=== PATIENT | female | born 1945 | race Caucasian/White ===

== ENCOUNTER → 2022-11-29 12:53 | Outpatient (BNVA) | payer MEDICARE, OTHER, SELFPAY | PROVIDERS: PCP Internal Medicine; Visit Provider Physician Assistant | DX: M54.40 Lumbago with sciatica, unspecified side (principal) | CPT/HCPCS: 99212 ==

== ENCOUNTER → 2023-01-04 12:52 | Outpatient (BNVA) | payer MEDICARE, OTHER, SELFPAY | PROVIDERS: PCP Internal Medicine; Visit Provider Physician Assistant | DX: M54.40 Lumbago with sciatica, unspecified side (principal) | CPT/HCPCS: 99212 ==

== ENCOUNTER 2024-02-28 09:44 | Outpatient (AMB) | payer MEDICARE, OTHER, SELFPAY ==
--- NOTE | 2024-02-28 09:51 | HO.SPINEOV ---
Intake Visit Reasons: MRI F/u Intake Note: Mrs. Braxton, 78 y/o female, is here today to follow up Re: L/Spine MRI. Fieldwork Coordinator Required: No Assessment & Plan Assessment & Plan (1) Back pain of lumbar region with sciatica: Code(s): M54.40 - Lumbago with sciatica, unspecified side Category: Medical Plan Mrs Braxton is following up in the office today. She is a patient known to us from an L4-5 minimally invasive fusion. She has been dealing with some on and off chronic pain issues, recently had what sounds like a caudal nerve block and was doing well until 3 weeks ago she awoke with severe pain radiating down into her left anterior thigh. It has a burning-type pain with severe dysesthesias along the front of the leg that stops at the knee. She underwent an MRI last week and this shows some narrowing of the foramen at the L2-3 level. I examined her today, she is very uncomfortable, having a hard time stand for more than a few minutes. She has some weakness with hip flexion but I am not sure if it could just be pain related. Her MRI done at [facility] last week shows evidence of solid fusion at L4-5. At L3-4 there is no significant nerve compression that I can see. At L2-3 however there does appear to be foraminal stenosis due to disc bulging. I do not see a michelle disc herniation however. This is the only pertinent finding I can see that would relate to where her pain is coming down the front of her thigh. It sounds like a radiculopathy coming from the dorsal root ganglion which would fit with a foraminal etiology. I think it would be worthwhile giving her an injection in the left L2 foramen see if we can identify this is the cause of the symptoms, and to treat it symptomatically. She sees a pain doctor at [facility]. She can not remember than his name but will get me the contact info and I will send them a copy of my note. Total amount of time spent in this visit was 20 minutes in discussion of symptoms, lumbar MRI imaging results and subsequent plan of care Fredrick Tucker MD,PhD [facility] Coding Level of Care Code Est Pt Level 3 (56062) Diagnoses Back pain of lumbar region with sciatica M54.40
== END 2024-02-28 10:25 | disposition home or self-care (01) ==
PROVIDERS: PCP Internal Medicine; Visit Provider Physician Assistant
DX: M54.40 Lumbago with sciatica, unspecified side (principal)
CPT/HCPCS: 99213

== ENCOUNTER → 2024-02-28 09:44 | Outpatient (BNVA) | payer MEDICARE, OTHER, SELFPAY | PROVIDERS: PCP Internal Medicine; Visit Provider Physician Assistant | DX: M54.40 Lumbago with sciatica, unspecified side (principal) | CPT/HCPCS: 99212 ==

== ENCOUNTER 2024-05-08 09:47 | Outpatient (AMB) | payer MEDICARE, OTHER, SELFPAY ==
--- NOTE | 2024-05-08 10:07 | HO.SPINEOV ---
Intake Visit Reasons: Discuss surgery Intake Note: Mrs. Braxton is here today to Discuss Surgery. Manager Corporate Communications Required: No Allergies No Known Allergies Allergy (Verified 05/08/24 10:07) Assessment & Plan Assessment & Plan (1) Back pain of lumbar region with sciatica: Code(s): M54.40 - Lumbago with sciatica, unspecified side Category: Medical Plan On 05/07/2024 I saw for preoperative visit Starr Braxton to discuss her upcoming surgery. She scheduled to undergo an left L2-3 diskectomy, extraforaminal approach next week. I described the procedure on the hand of a model. All questions were answered. I spent 10 minutes in his consult. Farshad Tucker MD, PhD Spine Fellowship Trained Neurosurgeon Director, [facility] Coding Level of Care Code Est Pt Level 2 (69962) Diagnoses Back pain of lumbar region with sciatica M54.40
== END 2024-05-08 11:03 | disposition home or self-care (01) ==
PROVIDERS: PCP Internal Medicine; Visit Provider Neurological Surgery
DX: M54.40 Lumbago with sciatica, unspecified side (principal)
CPT/HCPCS: 99212

== ENCOUNTER → 2024-05-08 09:47 | Outpatient (BNVA) | payer MEDICARE, OTHER, SELFPAY | PROVIDERS: PCP Internal Medicine; Visit Provider Neurological Surgery | DX: M54.40 Lumbago with sciatica, unspecified side (principal) | CPT/HCPCS: 99212 ==

== ENCOUNTER 2024-05-14 09:40 | Day surgery (SDC) | payer MEDICARE, OTHER, SELFPAY ==
[2024-05-07 13:15] VITALS: BP 130/62; PULSE 92; RESP 20; O2SAT 98; BMI 34.3
--- NOTE | 2024-05-07 13:31 | HO.ANESPROP2 ---
Documented by User: Kassy Olsen NP 05/11/24 14:24 HPI - Anesthesia Eval Consult details Narrative: 79yo F for Left L2-3 Extra Foraminal Far Lateral Mild Lumbar Discectomy with Metrix tubes, 05/14/24 No recent illness No CP/SOB with very minimal activity DM: FBS ~100-110 CVA x 2 in 2021: Eliquis. No residual. Loop recorder in situ PONV: Slightly nausea . Good effect in intraop zofran GERD: controlled with famotadine Multiple spine surgeries previously PMFSH Active Problems Active Problems: All Active Problems Back pain of lumbar region with sciatica (Acute) Past Medical History Medical History Cryptogenic stroke SVT (supraventricular tachycardia) Cardiomyopathy Mixed hyperlipidemia Stenosis of right carotid artery Paroxysmal atrial fibrillation Postoperative nausea Back pain Elevated cholesterol Arthritis GERD (gastroesophageal reflux disease) Depression TIA (transient ischemic attack) CVA (cerebral vascular accident) HTN (hypertension) Diabetes Arthritis Family History Family history of problems with anesthesia: No Surgical History Surgical History History of loop recorder Hx of cervical discectomy History of total replacement of both shoulder joints History of total bilateral knee replacement History of esophagogastroduodenoscopy (EGD) H/O colonoscopy Hx of cholecystectomy Hx of carpal tunnel repair Hx of section History of back surgery History of Problems with Anesthesia: No Social History Social History Are you a primary day care center director to a significant other at home: No Do you presently have visiting nurse or other home services: No Patient Tobacco Use Status: Former Tobacco user Tobacco use type: Cigarette Years Smoked: 3 Meds Allergies Allergy/AdvReac Type Severity Reaction Status Date / Time exenatide [From Byetta] Allergy Nausea Verified 05/14/24 10:26 metformin [From Glucophage] Allergy Nausea Verified 05/14/24 10:26 rosuvastatin [From Crestor] Allergy Nausea Verified 05/14/24 10:26 sertraline [From Zoloft] Allergy Nausea Verified 05/14/24 10:26 simvastatin [From Zocor] Allergy Nausea Verified 05/14/24 10:26 Home Medications ?Medication ?Instructions ?Recorded ?Confirmed ?Last Taken ?Type acetaminophen 500 mg tablet 500 mg PO BID 05/07/24 05/07/24 Unknown History apixaban 5 mg tablet (Eliquis) 5 mg PO BID 05/07/24 05/14/24 05/10/24 History chlorthalidone 25 mg tablet 25 mg PO QAM 05/07/24 05/07/24 Unknown History diltiazem HCl 180 mg 180 mg PO QAM 05/07/24 05/07/24 Unknown History capsule,extended release 24 hr evolocumab 140 mg/mL subcutaneous 140 mg subcut Q2W 05/07/24 05/07/24 Unknown History pen injector (Franklin Nicholas) famotidine 20 mg tablet 20 mg PO BEDTIME 05/07/24 05/07/24 Unknown History gabapentin 300 mg capsule 300 mg PO BEDTIME 05/07/24 05/07/24 Unknown History insulin degludec 100 unit/mL (3 34 unit subcut QAM 05/07/24 05/14/24 05/14/24 History mL) subcutaneous pen (Tresiba 0830 FlexTouch U-100 insulin) latanoprost 0.005 % eye drops 1 drp ophthalmic (eye) BEDTIME 05/07/24 05/07/24 Unknown History lisinopril 40 mg tablet 40 mg PO DAILY 05/07/24 05/07/24 Unknown History mirtazapine 45 mg tablet 45 mg PO QPM 05/07/24 05/07/24 Unknown History ondansetron HCl 4 mg tablet 4 mg PO Q12H PRN Nausea 05/07/24 05/07/24 Unknown History Exam Height,Weight and Vital Signs: Height 5 ft 4 in Weight 90.6 kg Last Vital Signs Pulse 92 05/07/24 13:15 Resp 20 05/07/24 13:15 BP 130/62 05/07/24 13:15 Pulse Ox 98 05/07/24 13:15 O2 Del Method Room Air 05/07/24 13:15 Pertinent Lab Results Pertinent Lab Results: CBC and CMP 10/2023 from outside facility [place] Narrative Narrative: EKG 10/2023 NSR @ 77 Carotid 09/2023 RIGHT: Significant arthersclerotic plaque in R carotid system; TEREZA is occluded; Subclavian with nml doppler flow; Verterbral artery has nml doppler flow patterns with antegrade flow LEFT: Moderate atherosclerotic plaque in L carotid system: 50-69% stenosis in LICA; subclavian with nml dopper flow; Vetebral artery has nml doppler flow patterns with antegrade flow ECHO 2021 Nml LV size and sys function; Mild conc LVH; Nml RWM; LVEF 60-65%; LV diastolic function is indeterminate RV nml in size wit nml sys function Nml size of LA and RA No signif valve abnormalities Airway Mallampati Class: I TM Dist: >3cm Neck ROM: Full (s/p cervical disc surgery last ) Partial: Upper Loose/Missing/Broken Teeth: No Heart: RRR Lungs: CTAB Assessment and Plan Assessment Anesthesia Assessment: Anesthesia Plan Discussed and PAT Visit Final Anesthetic Review Family History of Problems with Anesthesia: No History of Problems with Anesthesia: No Documented by User: Tiffany Howard MD 05/14/24 14:04 HPI - Anesthesia Eval Consult details Narrative: 79yo F for Left L2-3 Extra Foraminal Far Lateral Mild Lumbar Discectomy with Metrix tubes, 05/14/24 No recent illness No CP/SOB with very minimal activity DM: FBS ~100-110 CVA x 2 in 2021: Eliquis. No residual. Loop recorder in situ PONV: Slightly nausea . Good effect in intraop zofran GERD: controlled with famotadine Multiple spine surgeries previously PMFSH Active Problems Active Problems: All Active Problems Back pain of lumbar region with sciatica (Acute) Fragile skin. Bruises all over UE Weakness, stiffness UE secondary to shoulder surgery Past Medical History Medical History Cryptogenic stroke SVT (supraventricular tachycardia) Cardiomyopathy Mixed hyperlipidemia Stenosis of right carotid artery Paroxysmal atrial fibrillation Postoperative nausea Back pain Elevated cholesterol Arthritis GERD (gastroesophageal reflux disease) Depression TIA (transient ischemic attack) CVA (cerebral vascular accident) HTN (hypertension) Diabetes Arthritis Family History Family history of problems with anesthesia: No Surgical History Surgical History History of loop recorder Hx of cervical discectomy History of total replacement of both shoulder joints History of total bilateral knee replacement History of esophagogastroduodenoscopy (EGD) H/O colonoscopy Hx of cholecystectomy Hx of carpal tunnel repair Hx of section History of back surgery History of Problems with Anesthesia: Yes (PONV) Social History Social History Are you a primary day care center director to a significant other at home: No Do you presently have visiting nurse or other home services: No Patient Tobacco Use Status: Former Tobacco user Tobacco use type: Cigarette Years Smoked: 3 Meds Allergies Allergy/AdvReac Type Severity Reaction Status Date / Time exenatide [From Byetta] Allergy Nausea Verified 05/14/24 10:26 metformin [From Glucophage] Allergy Nausea Verified 05/14/24 10:26 rosuvastatin [From Crestor] Allergy Nausea Verified 05/14/24 10:26 sertraline [From Zoloft] Allergy Nausea Verified 05/14/24 10:26 simvastatin [From Zocor] Allergy Nausea Verified 05/14/24 10:26 Home Medications ?Medication ?Instructions ?Recorded ?Confirmed ?Last Taken ?Type acetaminophen 500 mg tablet 500 mg PO BID 05/07/24 05/07/24 Unknown History apixaban 5 mg tablet (Eliquis) 5 mg PO BID 05/07/24 05/14/24 05/10/24 History chlorthalidone 25 mg tablet 25 mg PO QAM 05/07/24 05/07/24 Unknown History diltiazem HCl 180 mg 180 mg PO QAM 05/07/24 05/07/24 Unknown History capsule,extended release 24 hr evolocumab 140 mg/mL subcutaneous 140 mg subcut Q2W 05/07/24 05/07/24 Unknown History pen injector (Franklin Nicholas) famotidine 20 mg tablet 20 mg PO BEDTIME 05/07/24 05/07/24 Unknown History gabapentin 300 mg capsule 300 mg PO BEDTIME 05/07/24 05/07/24 Unknown History insulin degludec 100 unit/mL (3 34 unit subcut QAM 05/07/24 05/14/24 05/14/24 History mL) subcutaneous pen (Tresiba 0830 FlexTouch U-100 insulin) latanoprost 0.005 % eye drops 1 drp ophthalmic (eye) BEDTIME 05/07/24 05/07/24 Unknown History lisinopril 40 mg tablet 40 mg PO DAILY 05/07/24 05/07/24 Unknown History mirtazapine 45 mg tablet 45 mg PO QPM 05/07/24 05/07/24 Unknown History ondansetron HCl 4 mg tablet 4 mg PO Q12H PRN Nausea 05/07/24 05/07/24 Unknown History Exam Height,Weight and Vital Signs: Height 5 ft 4 in Weight 90.6 kg Last Vital Signs Pulse 92 05/07/24 13:15 Resp 20 05/07/24 13:15 BP 130/62 05/07/24 13:15 Pulse Ox 98 05/07/24 13:15 O2 Del Method Room Air 05/07/24 13:15 Vital Signs Pulse Resp BP Pulse Ox O2 Del Method 91 16 146/70 96 Room Air 05/14/24 10:55 05/14/24 10:55 05/14/24 10:55 05/14/24 10:55 05/14/24 10:55 Temp: 97.3 Airway Mallampati Class: II TM Dist: >3cm Partial: Upper Loose/Missing/Broken Teeth: Yes (Upper partial. Denies broken or loose teeth) Assessment and Plan Assessment Anesthesia Assessment: Anesthesia Plan Discussed and Chart Reviewed Final Anesthetic Review Family History of Problems with Anesthesia: No History of Problems with Anesthesia: Yes (PONV) NPO: Yes ASA Class: III Final Preanesthetic Review: No Changes in Pt Med Stat, Meds/Allgs Chart Reviewed, Consent Obtained/Reviewed and Anes Risks/Benef Reviewed Patient Risk: Intermediate Procedure Risk: Intermediate Assessment/Block/Sedation in SS: Assess/Block/Sedation-SS Anesthetic Plan Anesthetic Plan: GA Disposition: Standard PACU
[2024-05-14] VITALS (11 sets, daily range): BP systolic 110–187; BP diastolic 60–81; PULSE 71–102; RESP 14–21; TEMP 36.3–36.4; O2SAT 96–99
--- OUTSIDE RECORDS SUMMARY | 2024-05-14 09:43 | XMS_ITS | Continuity of Care Document ---
Author Organization [facility] y Address [address] [place] [address] [address], [address] [place] [address]- Care Team Providers Care Brim Molder Name Role Phone Sona ALVARES, Cm Savage Primary Care Physician [place] [facility] [place]23 [facility] [address] [place] [address] Drive [address] [place], [place] [address] Allergies, Adverse Reactions, Alerts Substance Reaction Severity Status Zocor aching Active Zoloft Mild Active Glucophage nauseous Active Crestor aches and pain Active Byetta Prefilled Pen nauseous and sick Method of giving glucose Active Trulicity Active Medications acetaminophen 325 mg oral tablet 650 mg, By Mouth, Every 6 hours, Refills 0, Maintenance, 06/18/18 8:39:52 EDT Start Date: 06/18/18 Status: Ordered apixaban 5 mg oral tablet 1 tablet = 5 mg, By Mouth, 2 times a day, # 60 tablet, 0 Refills, Maintenance, 07/10/22 12:24:00 EST, Tablet, [facility], Partial fill upon patient request if the prescription is for a schedule II opioid drug., 163, cm, 07/10/22 11:42:00... Start Date: 07/10/22 Stop Date: 08/09/22 Status: Ordered aspirin 81 mg oral delayed release tablet 81 mg, By Mouth, Daily, # 30 tablet, Refills 3, Tot. Refills 3, Maintenance, 10/03/21 8:10:00 EST, Route to Pharmacy Electronically, [facility], Partial fill upon patient request if theprescription is for a schedule II opioid drug., 162... Start Date: 10/03/21 Stop Date: 01/31/22 Status: Ordered atorvastatin 80 mg oral tablet 1 tablet = 80 mg, By Mouth, Daily, # 30 tablet, 0 Refills, Maintenance, 07/10/22 12:35:00 EST, Tablet, [facility], Partial fill upon patient request if the prescription is for a schedule II opioid drug., 163, cm, 07/10/22 11:42:00 EST, H... Start Date: 07/10/22 Status: Ordered Diltiazem 0 Refills, Maintenance, 10/08/23 9:47:00 EST, Partial fill upon patient request if the prescriptionis for a schedule II opioid drug. Start Date: 10/08/23 Status: Ordered famotidine 10 mg oral tablet 1 tablet = 10 mg, By Mouth, 2 times a day, # 28 tablet, 0 Refills, Maintenance, 07/08/22 20:37:00 EST, Tablet, Partial fill upon patient request if the prescription is for a schedule II opioid drug. Start Date: 07/08/22 Status: Ordered Gabapentin By Mouth, 0 Refills, Maintenance, 10/08/23 9:47:00 EST, Partial fill upon patient request if the prescription is for a schedule II opioid drug. Start Date: 10/08/23 Status: Ordered lisinopril 40 mg oral tablet 1 tablet = 40 mg, By Mouth, Daily, # 30 tablet, 0 Refills, Maintenance, 02/12/22 20:22:00 EDT, Tablet, Partial fill upon patient request if the prescription is for a schedule II opioid drug. Start Date: 02/12/22 Status: Ordered Mirtazapine = 45 mg, By Mouth, Daily at bedtime, 0 Refills, Maintenance, 07/08/22 16:39:00 EST, Partial fill upon patient request if the prescription is for a schedule II opioid drug. Start Date: 07/08/22 Status: Ordered morphine 15 mg oral tablet, immediate release 1 tablet = 15 mg, By Mouth, Daily at bedtime, 0 Refills, Maintenance, 07/08/22 16:35:00 EST, Partial fill upon patient request if the prescription is for a schedule II opioid drug. Start Date: 07/08/22 Status: Ordered Ondansetron = 4 mg, By Mouth, PRN as needed for nausea/vomiting, 0 Refills, Maintenance, 07/08/22 16:33:00 EST,Partial fill upon patient request if the prescription is for a schedule II opioid drug. Start Date: 07/08/22 Status: Ordered PrednisoLONE = 5 mg, By Mouth, Daily, 0 Refills, Maintenance, 07/08/22 16:30:00 EST, Partial fill upon patient request if the prescription is for a schedule II opioid drug. Start Date: 07/08/22 Status: Ordered Tresiba FlexTouch 100 units/mL subcutaneous solution = 36 units, Subcutaneous Infusion, Daily, 0 Refills, Maintenance, 02/25/22 16:05:00 EDT, Partial fill upon patient request if the prescription is for a schedule II opioid drug. 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 History of CVA (cerebrovascular accident) Confirmed Active Hypertension Confirmed Active Severe obesity (BMI 35.0-39.9) with comorbidity Confirmed Active Type 2 diabetes mellitus Confirmed Active Social History Social History Type Response Smoking Status Never (less than 100 in lifetime) entered on: 01/04/21 Sex Patient Care team information Care Team Personnel Name: Cm Magallanes MD Position: [facility] Physician - Primary Care Member Role: PCP Address: Address: [address] [place] [id number]- Name: Monica Sun RN Position: [facility] RN Member Role: Primary Care Nurse Name: Ginger Jones RN Position: [facility] RN Member Role: Primary Care Nurse Name: Ramsey Herrera RN Position: [facility] RN Member Role: Primary Care Nurse Name: Di Perez RN Position: [facility] RN Member Role: Primary Care Nurse Name: Priti Wagoner RN Position: [facility] RN Member Role: Primary Care Nurse Name: Yaa Alexander NP Position: [facility] PCO Associate Professional Member Role: Primary Care Nurse Address: Address: [address] [place] [address] [facility] [place] [address]- Name: Bhavya Ricardo RN Position: [facility] RN Member Role: Primary Care Nurse Name: Sarah Augustin RN Position: [facility] RN Member Role: Primary Care Nurse Name: Josie Taylor RN Position: [facility] Onco RN Member Role: Primary Care Nurse Name: Rachel Moreno RN Position: [facility] RN Member Role: Primary Care Nurse Name: Sarah Cash LPN Position: [facility] RN Member Role: Primary Care Nurse Name: Izabela Parikh RN Position: [facility] RN Member Role: Primary Care Nurse Name: Gita Borden LPN Position: [facility] RN Member Role: Primary Care Nurse Name: Annie Lehman RN Position: [facility] RN Member Role: Primary Care Nurse Care Team Related Persons Name: МАРИНА HOBBS Address: [address] [address]
--- OUTSIDE RECORDS SUMMARY | 2024-05-14 09:43 | XMS_ITS | Continuity of Care Document ---
Author Organization [facility] y Address [address] [place] [address] [address], [address] [place] [address]- Care Team Providers Care Clinical Safety Specialist Name Role Phone Sona ALVARES, Cm Savage Primary Care Physician Encounter [facility] [place] 10/08/23 - 11/07/23 [facility] [address] [place] [address] Drive, [address] [place], [place] [address] Attending Physician: Kyle Lackey Admitting Physician: AdmKyle garcia Referring Physician: AdmtrKyle Allergies, Adverse Reactions, Alerts Substance Reaction Severity Status Zocor aching Active Byetta Prefilled Pen nauseous and sick Method of giving glucose Active Trulicity Active Zoloft Mild Active Glucophage nauseous Active Crestor aches and pain Active Medications acetaminophen 325 mg oral tablet 650 mg, By Mouth, Every 6 hours, Refills 0, Maintenance, 06/18/18 8:39:52 EDT Start Date: 06/18/18 Status: Ordered apixaban 5 mg oral tablet 1 tablet = 5 mg, By Mouth, 2 times a day, # 60 tablet, 0 Refills, Maintenance, 07/10/22 12:24:00 EST, Tablet, [facility], Partial fill upon patient request if the prescription is for a schedule II opioid drug., 163, cm, 07/10/22 11:42:00... Start Date: 07/10/22 Stop Date: 08/09/22 Status: Ordered aspirin 81 mg oral delayed release tablet 81 mg, By Mouth, Daily, # 30 tablet, Refills 3, Tot. Refills 3, Maintenance, 10/03/21 8:10:00 EST, Route to Pharmacy Electronically, [facility], Partial fill upon patient request if theprescription is for a schedule II opioid drug., 162... Start Date: 10/03/21 Stop Date: 01/31/22 Status: Ordered atorvastatin 80 mg oral tablet 1 tablet = 80 mg, By Mouth, Daily, # 30 tablet, 0 Refills, Maintenance, 07/10/22 12:35:00 EST, Tablet, [facility], Partial fill upon patient [...] Team Personnel Name: Cm Magallanes MD Position: [facility] Physician - Primary Care Member Role: PCP Address: Address: [address] [place] [id number]- Name: Monica Sun RN Position: [facility] RN Member Role: Primary Care Nurse Name: Ginger Jones RN Position: [facility] RN Member Role: Primary Care Nurse Name: Ramsey Herrera RN Position: [facility] RN Member Role: Primary Care Nurse Name: Di Perez RN Position: [facility] RN Member Role: Primary Care Nurse Name: Priti Wagoner RN Position: [facility] RN Member Role: Primary Care Nurse Name: Yaa Alexander NP Position: [facility] PCO Associate Professional Member Role: Primary Care Nurse Address: Address: [address] [place] [address] [facility] [place] [address]- Name: Bhavya Ricardo RN Position: [facility] SN RN Member Role: Primary Care Nurse Name: Sarah Augustin RN Position: [facility] RN Member Role: Primary Care Nurse Name: Josie Taylor RN Position: [facility] Onco RN Member Role: Primary Care Nurse Name: Rachel Moreno RN Position: [facility] RN Member Role: Primary Care Nurse Name: Sarah Cash LPN Position: [facility] RN Member Role: Primary Care Nurse Name: Izabela Parikh RN Position: [facility] RN Member Role: Primary Care Nurse Name: Gita Borden LPN Position: [facility] RN Member Role: Primary Care Nurse Name: Annie Lehman RN Position: [facility] RN Member Role: Primary Care Nurse Care Team Related Persons Name: ALANISTIMOTHY МАРИНА Address: [address] [address]
--- OUTSIDE RECORDS SUMMARY | 2024-05-14 09:43 | XMS_ITS | Continuity of Care Document ---
Author Organization [facility] Address Unknown Care Team Providers Care Certified Detention Deputy Name Role Phone Sona ALVARES, Cm Savage Primary Care Physician ( [phone] [place] [facility] [place]26[place]21 [facility] Attending Physician: Liss Miramontes MD, Shena Referring Physician: Yanira Preciado NP Allergies, Adverse Reactions, Alerts Substance Reaction Severity Status Zocor aching Active Zoloft Mild Active Glucophage nauseous Active Crestor aches and pain Active Byetta Prefilled Pen nauseous and sick Method of giving glucose Active Medications acetaminophen 325 mg oral tablet 650 mg, By Mouth, Every 6 hours, Refills 0, Maintenance, 06/18/18 8:39:52 EDT Start Date: 06/18/18 Status: Ordered amLODIPine 5 mg oral tablet 5 mg, 1, tablet, By Mouth, Daily, # 30 tablet, Refills 0, Tot. Refills 0, Maintenance, 10/03/21 10:11:00 EST, Route to Pharmacy Electronically, [facility], Partial fill upon patient request if the prescription is for a schedule II opioid... Start Date: 10/03/21 Status: Ordered aspirin 81 mg oral delayed release tablet 81 mg, By Mouth, Daily, # 30 tablet, Refills 3, Tot. Refills 3, Maintenance, 10/03/21 8:10:00 EST, Route to Pharmacy Electronically, [facility], Partial fill upon patient request if theprescription is for a schedule II opioid drug., 162... Start Date: 10/03/21 Stop Date: 01/31/22 Status: Ordered atorvastatin 40 mg oral tablet 1 tablet = 40 mg, By Mouth, Daily at bedtime, # 30 tablet, 0 Refills, Maintenance, 10/03/21 8:10:00EST, Tablet, [facility], Partial fill upon patient request if the prescription is fora schedule II opioid drug., 162.6, cm, 08/25/21 6:5... Start Date: 10/03/21 Status: Ordered Gabapentin = 100 mg, By Mouth, 2 times a day, 0 Refills, Maintenance, 12/28/20 15:25:00 EDT, Partial fill uponpatient request if the prescription is for a schedule II opioid drug. Start Date: 12/28/20 Status: Ordered metFORMIN 500 mg oral tablet 1 tablet = 500 mg, By Mouth, 2 times a day, # 60 tablet, 0 Refills, Maintenance, 10/03/21 8:22:00 EST, Tablet, [facility], Partial fill upon patient request if the prescription is for aschedule II opioid drug., 162.6, cm, 08/25/21 6:51:... Start Date: 10/03/21 Status: Ordered Paroxetine = 10 mg, By Mouth, Daily at bedtime, 0 Refills, Maintenance, 12/28/20 15:25:00 EDT, Partial fill upon patient request if the prescription is for a schedule II opioid drug. Start Date: 12/28/20 Status: Ordered Pepcid AC Maximum Strength 20 mg oral tablet 20 mg, 1, tablet, By Mouth, Daily, # 30 tablet, Refills 0, Maintenance, 06/17/18 6:43:14 EDT Start Date: 06/17/18 Status: Ordered Plavix 75 mg oral tablet 75 mg, 1, tablet, By Mouth, Daily, # 30 tablet, Refills 2, Tot. Refills 2, Maintenance, 10/03/21 8:10:00 EST, Route to Pharmacy Electronically, [facility], Partial fill upon patient request if the prescription is for a schedule II opioid... Start Date: 10/03/21 Stop Date: 01/01/22 Status: Ordered Remeron 45 mg oral tablet 1 tablet = 45 mg, By Mouth, Daily at bedtime, 0 Refills, Maintenance, 11/01/16 16:01:17 Start Date: 11/01/16 Status: Ordered Problem List Condition Effective Dates Status Health Status Inform ant Obese class II(Confirmed) Active Social History Social History Type Response Smoking Status Never (less than 100 in lifetime) entered on: 01/04/21 Sex
--- OUTSIDE RECORDS SUMMARY | 2024-05-14 09:43 | XMS_ITS | Continuity of Care Document ---
Author Organization [facility] Address [address] [place] [address] [address], [address] [place] [address]- Care Team Providers Care Continuity Reader Name Role Phone Sona ALVARES, Cm Savage Primary Care Physician ( [phone] Encounter [facility] Date(s): 08/28/22 - 09/27/[address], [address] [place], [place] [address] Attending Physician: Kyle Lackey Admitting Physician: AdmtrKyle Referring Physician: Admtr, ArVincent Allergies, Adverse Reactions, Alerts Substance Reaction Severity [...] 0 Refills, Maintenance, 07/10/22 12:24:00 EST, Tablet, [facility], Partial fill upon patient request if the prescription is for a schedule II opioid drug., 163, cm, 07/10/22 11:42:00... Start Date: 07/10/22 Stop Date: 08/09/22 Status: Ordered aspirin 81 mg oral delayed release tablet 81 mg, By Mouth, Daily, # 30 tablet, Refills 3, Tot. Refills 3, Maintenance, 10/03/21 8:10:00 EST, Route to Pharmacy Electronically, [facility], Partial fill upon patient request if theprescription is for a schedule II opioid drug., 162... Start Date: 10/03/21 Stop Date: 01/31/22 Status: Ordered atorvastatin 80 mg oral tablet 1 tablet = 80 mg, By Mouth, Daily, # 30 tablet, 0 Refills, Maintenance, 07/10/22 12:35:00 EST, Tablet, [facility], Partial fill upon patient request if the prescription is for a schedule II opioid drug., 163, cm, 07/10/22 11:42:00 EST, H... Start Date: 07/10/22 Status: Ordered famotidine 10 mg oral tablet 1 tablet = 10 mg, By Mouth, 2 times a day, # 28 tablet, 0 Refills, Maintenance, 07/08/22 20:37:00 EST, Tablet, Partial fill upon patient request if the prescription is for a schedule II opioid drug. Start Date: 07/08/22 Status: Ordered lisinopril 40 mg oral tablet [...] (cerebrovascular accident) Confirmed Active Hypertension Confirmed Active Obese class II Confirmed Active Type 2 diabetes mellitus Confirmed Active Social History Social History Type Response Smoking Status Never (less than 100 in lifetime) entered on: 01/04/21 Sex Patient Care team information Care Team Personnel Name: Cm Magallanes MD Position: [facility] Physician (General Medicine) Member Role: PCP Address: Address: [address] [place] [address] #[facility] [address] Name: Ainsley Anderson RN Position: [facility] RN Member Role: Primary Care Nurse Name: Monica Sun RN Position: [facility] RN Member Role: Primary Care Nurse Name: Ginger Jones RN Position: [facility] RN Member Role: Primary Care Nurse Name: Ramsey Herrera RN Position: [facility] RN Member Role: Primary Care Nurse Name: Di Perez RN Position: [facility] RN Member Role: Primary Care Nurse Name: Priti Wagoner RN Position: [facility] RN Member Role: Primary Care Nurse Name: Yaa Alexander RN Position: [facility] RN Member Role: Primary Care Nurse Name: Bhavya Ricardo RN Position: [facility] RN Member Role: Primary Care Nurse Name: Sarah Augustin RN Position: [facility] RN Member Role: Primary Care Nurse Name: Josie Taylor RN Position: [facility] RN Member Role: Primary Care Nurse Name: Rachel Moreno RN Position: [facility] RN Member Role: Primary Care Nurse Name: Sarah Cash LPN Position: S RN Member Role: Primary Care Nurse Name: Izabela Parikh RN Position: [facility] RN Member Role: Primary Care Nurse Name: Gita Borden LPN Position: S RN Member Role: Primary Care Nurse Name: Annie Lehman Position: S RN Member Role: Primary Care Nurse Care Team Related Persons Name: МАРИНА HOBBS Address: home [address] [place] [address]
--- OUTSIDE RECORDS SUMMARY | 2024-05-14 09:43 | XMS_ITS | Continuity of Care Document ---
Author Organization [facility] ter Address [address] [place] [address]- Care Team Providers Care Android Platform Developer Name Role Phone Sona ALVARES, Cm Savage Primary Care Physician ( [phone] [place] [facility] [place] 06/05/[address] [address]- Discharge Disposition: A-D/C Home Attending Physician: Rogelio Montenegro MD Admitting Physician: Rogelio Montenegro MD Referring Physician: Rogelio Montenegro MD Allergies, Adverse Reactions, Alerts Substance Reaction Severity Status Zocor aching Active Glucophage nauseous Active Crestor aches and pain Active Byetta Prefilled Pen nauseous and sick Method of giving glucose Active Medications acetaminophen 325 mg oral tablet 650 mg, By Mouth, Every 6 hours, Refills 0, Maintenance, 06/18/18 8:39:52 EDT Start Date: 06/18/18 Status: Ordered Gabapentin = 100 mg, By Mouth, 2 times a day, 0 Refills, Maintenance, 12/28/20 15:25:00 EDT, Partial fill uponpatient request if the prescription is for a schedule II opioid drug. Start Date: 12/28/20 Status: Ordered hydrochlorothiazide 25 mg oral tablet 25 mg, 1, tablet, By Mouth, Daily, Refills 0, Maintenance, 11/01/16 16:00:36 Start Date: 11/01/16 Status: Ordered lisinopril 30 mg oral tablet 1 tablet = 30 mg, By Mouth, Daily, 0 Refills, Maintenance, 11/01/16 15:58:14 Start Date: 11/01/16 Status: Ordered Paroxetine = 10 mg, By [...] 6:43:14 EDT Start Date: 06/17/18 Status: Ordered Remeron 45 mg oral tablet 1 tablet = 45 mg, By Mouth, Daily at bedtime, 0 Refills, Maintenance, 11/01/16 16:01:17 Start Date: 11/01/16 Status: Ordered Tresiba FlexTouch = 30 units, Subcutaneous Infusion, Daily at bedtime, 0 Refills, Maintenance, 06/17/18 6:41:01 EDT Start Date: 06/17/18 Status: Ordered Vital Signs Most recent to oldest [Reference Range]: 1 2 3 Oxygen Saturation [94-100 %] 97 % (06/05/21 9:41 AM) 97 % (06/05/21 9:26 AM) 100 % (06/05/21 8:58 AM) Pulse Rate [55-90 bpm] 92 bpm *H* (06/05/21 8:58 AM) Blood Pressure [90-138/55-84 mm Hg] 159/99mm Hg *H* (06/05/21 9:41 AM) 166/84mm Hg *H* (06/05/21 9:26 AM) 173/82mm Hg *H* (06/05/21 8:58 AM) Respiratory Rate [16-30 br/min] 22 br/min (06/05/21 9:41 AM) 22 br/min (06/05/21 9:26 AM) 20 br/min (06/05/21 8:58 AM) Temperature [96.8-100.4 DegF] 98.4 DegF (06/05/21 8:58 AM) Mode of Delivery (Oxygen) Room air (06/05/21 9:41 AM) Room air (06/05/21 9:26 AM) Room air (06/05/21 8:58 AM) Blood pressure sites Arm, left (06/05/21 9:41 AM) Arm, left (06/05/21 9:26 AM) Arm, left (06/05/21 8:58 AM) Social History Social History Type Response Smoking Status Never (less than 100 in lifetime) entered on: 01/04/21 Sex
--- OUTSIDE RECORDS SUMMARY | 2024-05-14 09:43 | XMS_ITS | Continuity of Care Document ---
Author Organization [facility] Address [address] [place] [address]- Care Team Providers Care Cheese Production Supervisor Name Role Phone Cm Magallanes MD Primary Care Physician [place] [facility] [place] - 01/01/[address] [address] Discharge Disposition: A-D/C Home Attending Physician: Cm Magallanes MD Admitting Physician: Cm Magallanes MD Referring Physician: Ronnie Urban MD, Neymar Allergies, Adverse Reactions, Alerts Substance Reaction Severity [...] 10/03/21 10:11:00 EST, Route to Pharmacy Electronically, [facility], Partial fill upon patient request if the prescription is for a schedule II opioid... Start Date: 10/03/21 Status: Ordered aspirin 81 mg oral delayed release tablet 81 mg, By Mouth, Daily, # 30 tablet, Refills 3, Tot. Refills 3, Maintenance, 10/03/21 8:10:00 EST, Route to Pharmacy Electronically, [facility], Partial fill upon patient request if theprescription is for a schedule II opioid drug., 162... Start Date: 10/03/21 Stop Date: 01/31/22 Status: Ordered atorvastatin 40 mg oral tablet 1 tablet = 40 mg, By Mouth, Daily at bedtime, # 30 tablet, 0 Refills, Maintenance, 10/03/21 8:10:00EST, Tablet, [facility], Partial fill upon patient request if the prescription is fora schedule II opioid drug., 162.6, cm, 08/25/21 6:5... Start Date: 10/03/21 Status: Ordered Gabapentin = 100 mg, By Mouth, 2 times a day, 0 Refills, Maintenance, 12/28/20 15:25:00 EDT, Partial fill uponpatient request if the prescription is for a schedule II opioid drug. Start Date: 12/28/20 Status: Ordered Lexapro 5 mg oral tablet 2 tablet = 10 mg, By Mouth, Daily, 0 Refills, Maintenance, 12/19/21 13:56:00 EDT, Partial fill uponpatient request if the prescription is for a schedule II opioid drug. Start Date: 12/19/21 Status: Ordered metFORMIN 500 mg oral tablet 1 tablet = 500 mg, By Mouth, 2 times a day, # 60 tablet, 0 Refills, Maintenance, 10/03/21 8:22:00 EST, Tablet, [facility], Partial fill upon patient request if [...] 10/03/21 8:10:00 EST, Route to Pharmacy Electronically, [facility], Partial fill upon patient [...]
--- OUTSIDE RECORDS SUMMARY | 2024-05-14 09:43 | XMS_ITS | Continuity of Care Document ---
Author Organization [facility] Address Unknown Care Team Providers Care Fish Hatchery Laborer Name Role Phone Sona ALVARES, Cm Savage Primary Care Physician En[place] [facility] [place] [id number] Date(s): 10/27/21 - 11/26/21 [facility] Attending Physician: Kyle Lackey Admitting Physician: Kyle Lackey Referring Physician: Kyle Lackey Allergies, Adverse Reactions, Alerts Substance Reaction Severity [...] 10/03/21 10:11:00 EST, Route to Pharmacy Electronically, [facility], Partial fill upon patient request if the prescription is for a schedule II opioid... Start Date: 10/03/21 Status: Ordered aspirin 81 mg oral delayed release tablet 81 mg, By Mouth, Daily, # 30 tablet, Refills 3, Tot. Refills 3, Maintenance, 10/03/21 8:10:00 EST, Route to Pharmacy Electronically, [facility], Partial fill upon patient request if theprescription is for a schedule II opioid drug., 162... Start Date: 10/03/21 Stop Date: 01/31/22 Status: Ordered atorvastatin 40 mg oral tablet 1 tablet = 40 mg, By Mouth, Daily at bedtime, # 30 tablet, 0 Refills, Maintenance, 10/03/21 8:10:00EST, Tablet, [facility], Partial fill upon patient request [...] 0 Refills, Maintenance, 10/03/21 8:22:00 EST, Tablet, [facility], Partial fill upon patient request [...] 10/03/21 8:10:00 EST, Route to Pharmacy Electronically, [facility], Partial fill upon patient request [...]
--- OUTSIDE RECORDS SUMMARY | 2024-05-14 09:43 | XMS_ITS | Continuity of Care Document ---
Author Organization [facility] Address [address] [facility], [address], [address] [place] [address]- Care Team Providers Care Fermenter Wine Name Role Phone Sona ALVARES, Cm Savage Primary Care Physician En[place] [facility] [place]s): 07/09/22 - 08/08/22 [facility] [address], [address], [address] [place] [address]- Allergies, Adverse Reactions, Alerts Substance Reaction Severity [...] 0 Refills, Maintenance, 07/10/22 12:24:00 EST, Tablet, [facility], Partial fill upon patient request if the prescription is for a schedule II opioid drug., 163, cm, 07/10/22 11:42:00... Start Date: 07/10/22 Stop Date: 08/09/22 Status: Ordered aspirin 81 mg oral delayed release tablet 81 mg, By Mouth, Daily, # 30 tablet, Refills 3, Tot. Refills 3, Maintenance, 10/03/21 8:10:00 EST, Route to Pharmacy Electronically, [facility], Partial fill upon patient request if theprescription is for a schedule II opioid drug., 162... Start Date: 10/03/21 Stop Date: 01/31/22 Status: Ordered atorvastatin 80 mg oral tablet 1 tablet = 80 mg, By Mouth, Daily, # 30 tablet, 0 Refills, Maintenance, 07/10/22 12:35:00 EST, Tablet, [facility], Partial fill upon patient request if [...] Personnel Name: Cm Magallanes MD Position: [facility] Physician (General Medicine) Member Role: PCP Address: Address: [address] [place] [address] #[facility] [address] Name: Ainsley Anderson RN Position: [facility] RN Member Role: Primary Care Nurse Name: Monica Sun RN Position: [facility] RN Member Role: Primary Care Nurse Name: Ginger Jones RN Position: S RN Member Role: Primary Care Nurse Name: Ramsey Herrera RN Position: [facility] RN Member Role: Primary Care Nurse Name: Di Perez RN Position: [facility] RN Member Role: Primary Care Nurse Name: Priti Wagoner RN Position: S RN Member Role: Primary Care Nurse Name: Yaa Alexander RN Position: [facility] RN Member Role: Primary Care Nurse Name: Bhavya Ricardo RN Position: [facility] RN Member Role: Primary Care Nurse Name: Sarah Augustin RN Position: [facility] RN Member Role: Primary Care Nurse Name: Josie Taylor RN Position: [facility] RN Member Role: Primary Care Nurse Name: Rachel Moreno RN Position: [facility] RN Member Role: Primary Care Nurse Name: Sarah Cash LPN Position: S RN Member Role: Primary Care Nurse Name: Izabela Parikh RN Position: S RN Member Role: Primary Care Nurse Name: Gita Borden LPN Position: S RN Member Role: Primary Care Nurse Name: Annie Lehman Position: S RN Member Role: Primary Care Nurse Care Team Related Persons Name: МАРИНА HOBBS Address: home [address] [place] [address]
--- OUTSIDE RECORDS SUMMARY | 2024-05-14 09:43 | XMS_ITS | Continuity of Care Document ---
Author Organization [facility] Address [address] [place], [place] [address], [address] [place] [address]- Care Team Providers Care Screwmaker Automatic Name Role Phone Sona ALVARES, Cm Savage Primary Care Physician Encounter [facility] [place] Date(s): 10/11/23 - 11/10/23 [facility] [address] [place] [address] Drive, [address] [place] [address]- Allergies, Adverse Reactions, Alerts Substance Reaction Severity [...] 0 Refills, Maintenance, 07/10/22 12:24:00 EST, Tablet, [facility], Partial fill upon patient request if the prescription is for a schedule II opioid drug., 163, cm, 07/10/22 11:42:00... Start Date: 07/10/22 Stop Date: 08/09/22 Status: Ordered aspirin 81 mg oral delayed release tablet 81 mg, By Mouth, Daily, # 30 tablet, Refills 3, Tot. Refills 3, Maintenance, 10/03/21 8:10:00 EST, Route to Pharmacy Electronically, [facility], Partial fill upon patient request if theprescription is for a schedule II opioid drug., 162... Start Date: 10/03/21 Stop Date: 01/31/22 Status: Ordered atorvastatin 80 mg oral tablet 1 tablet = 80 mg, By Mouth, Daily, # 30 tablet, 0 Refills, Maintenance, 07/10/22 12:35:00 EST, Tablet, [facility], Partial fill upon patient request [...] Team Personnel Name: Cm Magallanes MD Position: [facility] Physician - Primary Care Member Role: PCP Address: Address: [address] [place] [address]- Name: Monica Sun RN Position: [facility] RN Member Role: Primary Care Nurse Name: Ginger Jones RN Position: [facility] RN Member Role: Primary Care Nurse Name: Ramsey Herrera RN Position: [facility] RN Member Role: Primary Care Nurse Name: Di Perez RN Position: [facility] RN Member Role: Primary Care Nurse Name: Priti Wagoner RN Position: [facility] RN Member Role: Primary Care Nurse Name: Yaa Alexander NP Position: [facility] PCO Associate Professional Member Role: Primary Care Nurse Address: Address: [address] [place] [address] [place] [address]- Name: Bhavya Ricardo RN Position: [facility] RN Member Role: Primary Care Nurse Name: Sarah Augustin RN Position: [facility] RN Member Role: Primary Care Nurse Name: Josie Taylor RN Position: [facility] Onco RN Member Role: Primary Care Nurse Name: Rachel Moreno RN Position: [facility] RN Member Role: Primary Care Nurse Name: Sarah Cash LPN Position: [facility] RN Member Role: Primary Care Nurse Name: Izabela Parikh RN Position: [facility] RN Member Role: Primary Care Nurse Name: Gita Borden LPN Position: [facility] RN Member Role: Primary Care Nurse Name: Annie Lehman RN Position: [facility] RN Member Role: Primary Care Nurse Care Team Related Persons Name: МАРИНА HOBBS Address: [address] [address]
--- OUTSIDE RECORDS SUMMARY | 2024-05-14 09:43 | XMS_ITS | Continuity of Care Document ---
Author Organization [facility] Address [address] [place] [address]- Care Team Providers Care Reverse Logistics Analyst Name Role Phone Cm Magallanes MD Primary Care Physician Encounter [facility] Date(s): 03/16/24 - 03/23/24 [facility] [address] [place], [place] [address] Attending Physician: Brit Lloyd NP Admitting Physician: Brit Lloyd NP Referring Physician: Cm Magallanes MD Allergies, Adverse Reactions, Alerts Substance Reaction [...] 0 Refills, Maintenance, 07/10/22 12:24:00 EST, Tablet, [facility], Partial fill upon patient request if the prescription is for a schedule II opioid drug., 163, cm, 07/10/22 11:42:00... Start Date: 07/10/22 Stop Date: 08/09/22 Status: Ordered aspirin 81 mg oral delayed release tablet 81 mg, By Mouth, Daily, # 30 tablet, Refills 3, Tot. Refills 3, Maintenance, 10/03/21 8:10:00 EST, Route to Pharmacy Electronically, [facility], Partial fill upon patient request if theprescription is for a schedule II opioid drug., 162... Start Date: 10/03/21 Stop Date: 01/31/22 Status: Ordered atorvastatin 80 mg oral tablet 1 tablet = 80 mg, By Mouth, Daily, # 30 tablet, 0 Refills, Maintenance, 07/10/22 12:35:00 EST, Tablet, [facility] 3, Partial fill upon patient request if the prescription is for a schedule II opioid drug., 163, cm, 07/10/22 11:42:00 EST, H... Start Date: 07/10/22 Status: Ordered chlorthalidone 25 mg oral tablet 25 mg, 1, tablet, By Mouth, Daily, # 30 tablet, Refills 0, Maintenance, 01/20/24 14:16:00 EDT, Partial fill upon patient request if the prescription is for a schedule II opioid drug. Start Date: 01/20/24 Status: Ordered Diltiazem 0 Refills, Maintenance, 10/08/23 9:47:00 EST, Partial fill upon patient request if the prescriptionis for a schedule II opioid drug. Start Date: 10/08/23 Status: Ordered famotidine 20 mg oral tablet 20 mg, 1, tablet, By Mouth, Daily, # 30 tablet, Refills 0, Maintenance, 01/20/24 14:16:00 EDT, Partial fill upon patient request if the prescription is for a schedule II opioid drug. Start Date: 01/20/24 Status: Ordered Gabapentin By Mouth, 0 Refills, [...] opioid drug. Start Date: 07/08/22 Status: Ordered Praluent Pen 75 mg/mL subcutaneous solution = 75 mg, Subcutaneous Infusion, 0 Refills, Maintenance, 01/20/24 14:15:00 EDT, Partial fill upon patient request if the prescription is for a schedule II opioid drug. Start Date: 01/20/24 Status: Ordered Tresiba FlexTouch 100 units/mL subcutaneous [...] 100 in lifetime) entered on: 01/04/21 Sex Note * Prabhjot Castaneda: PERFORM Event Display: Patient Education/Instruction Authored Date: [id number] Ambulatory Adult Visit Summary [facility] [address] [facility] [address] [facility] [address] [place] [address] Name: SINA HOBBS : 1945?? Visit: 03/16/2024 06:31?? Ambulatory Visit Instructions ?? Your Care Team Primary Care Provider Sona ALVARES, Cm Savage? This Visit Provider Brit Lloyd NP Your Diagnosis PVD (peripheral vascular disease) What to do next Scheduled Follow-Up Appointments Saturday 11:00 AM EDT ?? With: Bubba ALVARES, Jordy Whittington Where: [address] [facility] [address] [place] [address]- Status: Pending Saturday 10:00 AM EDT ?? With: Eric Butt MD Where: [facility] [address] [place] [address]- Status: Pending Saturday 10:00 AM EDT ?? With: Rigo Johnson MD Where: [facility] [address] [place] [address]- Status: Pending Medications The list below reflects the information in our records and provided by you today along with any changes made during this visit. Please continue your medications until treatment is completed or stopped by your provider. If this is different from the information you have or there are other questions,please contact the prescribing provider. What How Much When Instructions Unchanged Acetaminophen (acetaminophen 325 mg oral tablet) 650 Milligram Oral Every 6 hours Unchanged alirocumab (Praluent Pen 75 mg/ mL subcutaneous solution) 75 Milligram Subcutaneous Infusion Unchanged apixaban (apixaban 5 mg oral tablet) 1 tab(s) Oral Twice a day Duration: 30 Days Unchanged Aspirin (aspirin 81 mg oral delayed release tablet) 81 Milligram Oral Daily Duration: 30 Days Unchanged Atorvastatin (atorvastatin 80 mg oral tablet) 1 tab(s) Oral Daily Unchanged Chlorthalidone (chlorthalidone 25 mg oral tablet) 1 tab(s) Oral Daily Unchanged Diltiazem Unchanged Famotidine (famotidine 20 mg oral tablet) 1 tab(s) Oral Daily Unchanged Gabapentin Oral Unchanged insulin degludec (Tresiba FlexTouch 100 units/ mL subcutaneous solution) 36 unit(s) Subcutaneous Infusion Daily Unchanged Lisinopril (lisinopril 40 mg oral tablet) 1 tab(s) Oral Daily Unchanged Mirtazapine 45 Milligram Oral Daily at Bedtime Unchanged Ondansetron 4 Milligram Oral As needed for as needed for nausea/vomiting Medications and Immunizations Administered Medications Given During Visit No medications given during this visit.?? Allergies (NKA means No Known Allergies) Zoloft Byetta Prefilled Pen??(nauseous and sick, Method of giving glucose) Crestor??(aches and pain) Glucophage??(nauseous) Trulicity Zocor??(aching) Common Emergency Awareness Tips IS IT A STROKE? Act FAST and Check for these signs: FACE Does the face look uneven? ARM Does one arm drift down? SPEECH Does their speech sound strange? TIME Call at any sign of stroke ?? Heart Attack Signs Chest discomfort: Most heart attacks involve discomfort in the center of the chest and lasts more than a few minutes, or goes away and comes back. It can feel like uncomfortable pressure, squeezing, fullness or pain. Discomfort in upper body: Symptoms can include pain or discomfort in one or both arms, back, neck, jaw or stomach. Shortness of breath: With or without discomfort. Other signs: Breaking out in a cold sweat, nausea, or lightheaded. Remember, MINUTES DO MATTER. If you experience any of these heart attack warning signs, call to get immediate medical attention! ?? Smoking can increase your chances of developing chronic health problems and can cause harmful effects to other family members in your house. If you smoke, you are strongly encouraged to quit. Please call [employer] [facility] at [phone] or [phone] ([phone]) or log in to [email or web address] for referrals to smoking cessation programs. ?? The National Suicide Prevention Hotline is available 11/03 if you or someone you know needs to find a reason to keep living. By calling 9-105-384-Wear (7594) you'll be connected to a skilled, trained counselor at a crisis center in your area. [email or web address] Portal You can view and manage your care through the patient portal or by using a health care aron of your choosing. [employer] is a website that allows you to securely view your medical information including your hospital discharge summary, office visit summaries, medications and follow-up visits. You can also request appointments, renew medications, and request access to your medical information using a health care aron of your choosing, or just ask a question. You can enroll at [email or web address] or register during your next office visit. [facility], in keeping with [facility] guidance, no longer requires face masks for staff, patientsor visitors in most situations. Similiar to time spent indoors at other locations, there is the chance that you were exposed to repiratory viruses during your time with us (such as flu or COVID-19). If you develop symptoms concerning for a viral respiratory infection, please seek testing (and treatment if indicated) from your medical provider or home test kit. ?? Disclaimer: The information provided is of a general nature and is intended to be used in conjunction with the recommendations and advice of your health care practitioner. Every effort has been made to ensure that the information provided is accurate and complete at the time it is provided to you however, as your needs change, or, as new information becomes available, different or additional instructions may be required. ?? If you have questions, please consult with your primary care provider or pharmacist, as appropriate. This information is not intended to serve as substitution for assessment and evaluation by a qualified health care provider. If you do not have a primary care provider, you may find a [facility] provider by calling [facility] at [phone]. Patient Care team information Care Team Personnel Name: Cm Magallanes MD Position: [facility] Physician - Primary Care Member Role: PCP Address: Address: [address] [place], [place] [address]k[address]ism[address]anda [place] [address]- Name: Monica Sun RN Position: [facility] AMB Nurse Member Role: Primary Care Nurse Name: Ramsey Herrera RN Position: [facility] RN Member Role: Primary Care Nurse Name: Di Perez RN Position: [facility] RN Member Role: Primary Care Nurse Name: Priti Wagoner RN Position: [facility] RN Member Role: Primary Care Nurse Name: Yaa Alexander NP Position: [facility] PCO Associate Professional Member Role: Primary Care Nurse Address: Address: [address] [place] [address]- Name: Bhavya Ricardo RN Position: [facility] AMB Nurse Member Role: Primary Care Nurse Name: Sarah Augustin RN Position: S RN Member Role: Primary Care Nurse Name: Josie Taylor RN Position: [facility] Abdi RN Member Role: Primary Care Nurse Name: Rachel Moreno RN Position: [facility] RN Member Role: Primary Care Nurse Name: Sarah Cash LPN Position: S RN Member Role: Primary Care Nurse Name: Izabela Parikh RN Position: [facility] RN Member Role: Primary Care Nurse Name: Gita Borden LPN Position: [facility] RN Member Role: Primary Care Nurse Name: Annie Lehman RN Position: [facility] RN Member Role: Primary Care Nurse Care Team Related Persons Name: МАРИНА HOBBS Address: home [address] [place] [address]
--- OUTSIDE RECORDS SUMMARY | 2024-05-14 09:43 | XMS_ITS | Continuity of Care Document ---
Author Organization [facility] Address [address] [place] [address] [address], [address] [place] [address]- Care Team Providers Care Computer Animator Name Role Phone Sona ALVARES, Cm Savage Primary Care Physician [place] [facility] [place] Date(s): 03/18/24 - 04/17/24 [facility] [address] [place] [address] Drive [address] [place], [place] [address] Allergies, Adverse Reactions, Alerts Substance Reaction Severity [...] 0 Refills, Maintenance, 07/10/22 12:24:00 EST, Tablet, [facility], Partial fill upon patient request if the prescription is for a schedule II opioid drug., 163, cm, 07/10/22 11:42:00... Start Date: 07/10/22 Stop Date: 08/09/22 Status: Ordered aspirin 81 mg oral delayed release tablet 81 mg, By Mouth, Daily, # 30 tablet, Refills 3, Tot. Refills 3, Maintenance, 10/03/21 8:10:00 EST, Route to Pharmacy Electronically, [facility], Partial fill upon patient request if theprescription is for a schedule II opioid drug., 162... Start Date: 10/03/21 Stop Date: 01/31/22 Status: Ordered atorvastatin 80 mg oral tablet 1 tablet = 80 mg, By Mouth, Daily, # 30 tablet, 0 Refills, Maintenance, 07/10/22 12:35:00 EST, Tablet, [facility] 3, Partial fill upon patient request [...] Team Personnel Name: Cm Magallanes MD Position: [facility] Physician - Primary Care Member Role: PCP Address: Address: [address] [place] [address]- Name: Monica Sun RN Position: [facility] AMB Nurse Member Role: Primary Care Nurse Name: Ramsey Herrera RN Position: [facility] RN Member Role: Primary Care Nurse Name: Di Perez RN Position: [facility] RN Member Role: Primary Care Nurse Name: Priti Wagoner RN Position: [facility] RN Member Role: Primary Care Nurse Name: Yaa Alexander NP Position: [facility] PCO Associate Professional Member Role: Primary Care Nurse Address: Address: [address] [place] [address]- Name: Bhavya Ricardo RN Position: [facility] AMB Nurse Member Role: Primary Care Nurse Name: Sarah Augustin RN Position: [facility] RN Member Role: Primary Care Nurse Name: Josie Taylor RN Position: [facility] Onco RN Member Role: Primary Care Nurse Name: Rachel Moreno RN Position: [facility] RN Member Role: Primary Care Nurse Name: Sarah Cash LPN Position: [facility] RN Member Role: Primary Care Nurse Name: Izabela Parikh RN Position: [facility] RN Member Role: Primary Care Nurse Name: Gita Borden LPN Position: [facility] RN Member Role: Primary Care Nurse Name: Annie Lehman RN Position: [facility] RN Member Role: Primary Care Nurse Care Team Related Persons Name: МАРИНА HOBBS Address: [address] [address]
--- OUTSIDE RECORDS SUMMARY | 2024-05-14 09:43 | XMS_ITS | Continuity of Care Document ---
Author Organization [facility] Address [address] [place] [address]- Care Team Providers Care Medicare Biller Name Role Phone Sona ALVARES, Cm Savage Primary Care Physician Encounter [facility] [place] Date(s): 02/26/22 - 02/27/[address] [address]- Encounter Diagnosis Dizziness(Final) - 02/25/22 Discharge Disposition: A-D/C Home Attending Physician: Vitaly Sandoval MD Admitting Physician: Mahnaz Saravia MD Referring Physician: Not on Staff, Referring MD Allergies, Adverse Reactions, Alerts Substance Reaction Severity Status Zocor aching Active Byetta Prefilled Pen nauseous and sick Method of giving glucose Active Trulicity Active Zoloft Mild Active Glucophage nauseous Active Crestor aches and pain Active Medications acetaminophen 325 mg oral tablet 650 mg, By Mouth, Every 6 hours, Refills 0, Maintenance, 06/18/18 8:39:52 EDT Start Date: 06/18/18 Status: Ordered aspirin 81 mg oral delayed release tablet 81 mg, By Mouth, Daily, # 30 tablet, Refills 3, Tot. Refills 3, Maintenance, 10/03/21 8:10:00 EST, Route to Pharmacy Electronically, [facility], Partial fill upon patient request if theprescription is for a schedule II opioid drug., 162... Start Date: 10/03/21 Stop Date: 01/31/22 Status: Ordered atorvastatin 80 mg oral tablet 1 tablet = 80 mg, By Mouth, Daily at bedtime, # 30 tablet, 0 Refills, Maintenance, 02/27/22 10:43:00 EDT, Tablet, [id number], Partial fill upon patient request if the prescription is for a schedule II opioid drug., 163, cm, 02/15/22 10:16:00 E... Start Date: 02/27/22 Status: Ordered Gabapentin = 100 mg, By Mouth, 2 times a day, 0 Refills, Maintenance, 12/28/20 15:25:00 EDT, Partial fill uponpatient request if the prescription is for a schedule II opioid drug. Start Date: 12/28/20 Status: Ordered lisinopril 40 mg oral tablet 1 tablet = 40 mg, By Mouth, Daily, # 30 tablet, 0 Refills, Maintenance, 02/12/22 20:22:00 EDT, Tablet, Partial fill upon patient request if the prescription is for a schedule II opioid drug. Start Date: 02/12/22 Status: Ordered Neurontin 100 mg oral capsule 100 mg, Capsule, By Mouth, 02/27/22 9:00:00 EDT Start Date: 02/27/22 Stop Date: 02/27/22 Status: Completed ondansetron 4 mg oral tablet, disintegrating 1 tablet = 4 mg, By Mouth, Every 8 hours, PRN as needed for nausea/vomiting, # 15 tablet, 0 Refills, Acute 04/12/22 10:00:00 EDT, 02/15/22 9:22:00 EDT, DIS Tablet, [id number], Partial fill upon patient request if the prescription is for a sche... Start Date: 02/15/22 Stop Date: 04/12/22 Status: Ordered Pepcid AC Maximum Strength 20 mg oral tablet 20 mg, 1, tablet, By Mouth, Daily, # 30 tablet, Refills 0, Maintenance, 06/17/18 6:43:14 EDT Start Date: 06/17/18 Status: Ordered Plavix 75 mg oral tablet 75 mg, 1, tablet, By Mouth, Daily, # 30 tablet, Refills 0, Tot. Refills 0, Maintenance, 02/27/22 10:43:00 EDT, Route to Pharmacy Electronically, [id number], Partial fill upon patient request if the prescription is for a schedule II opioid drug... Start Date: 02/27/22 Status: Ordered Tresiba FlexTouch 100 units/mL subcutaneous solution = 36 units, Subcutaneous Infusion, Daily, 0 Refills, Maintenance, 02/25/22 16:05:00 EDT, Partial fill upon patient request if the prescription is for a schedule II opioid drug. 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 FINDINGS: LINES AND TUBES: None. LUNGS AND PLEURA: Clear lungs. Normal pulmonary vascularity. No pleural effusion. No pneumothorax. HEART, MEDIASTINUM AND SATNAM: Heart is normal in size. Normal upper mediastinal and hilar contour. BONES AND SOFT TISSUES: No acute abnormality. IMPRESSION: No acute abnormality. WSN: [id number] Ordering Physician: Ashleigh Smith Dictated By: Yenifer Alvarado MD Dictated Date/Time: 02/25/22 12:06 p Reviewed By: Yenifer Alvarado MD Signed By: Yenifer Alvarado MD Signed Date/Time: 02/25/22 12:06 pm Transcribed By: HUMAIRA Transcribed Date/Time: 02/25/22 12:06 pm Vital Signs Most recent to oldest [Reference Range]: 1 2 3 Oxygen Saturation [94-100 %] 100 % (02/27/22 7:36 AM) 100 % (02/27/22 2:00 AM) 99 % (02/26/22 10:00 PM) Pulse Rate [55-90 bpm] 82 bpm (02/27/22 7:36 AM) 77 bpm (02/27/22 2:00 AM) 87 bpm (02/26/22 10:00 PM) Blood Pressure [90-138/55-84 mm Hg] 144/75mm Hg *H* (02/27/22 7:36 AM) 130/63mm Hg (02/27/22 2:00 AM) 141/60mm Hg *H* (02/26/22 10:00 PM) Respiratory Rate [16-30 br/min] 18 br/min (02/27/22 8:35 AM) 17 br/min (02/27/22 7:36 AM) 18 br/min (02/27/22 7:35 AM) Temperature [96.8-100.4 DegF] 97.5 DegF (02/27/22 7:36 AM) 97.8 DegF (02/27/22 2:00 AM) 97.7 DegF (02/26/22 10:00 PM) Mode of Delivery (Oxygen) Room air (02/27/22 7:36 AM) Room air (02/27/22 2:00 AM) Room air (02/26/22 10:00 PM) Blood pressure sites Arm, left (02/27/22 7:36 AM) Arm, right (02/27/22 2:00 AM) Arm, right (02/26/22 10:00 PM) Temperature Route Oral (02/27/22 7:36 AM) Oral (02/27/22 2:00 AM) Oral (02/26/22 10:00 PM) Social History Social History Type Response Smoking Status Never (less than 100 in lifetime) entered on: 01/04/21 Sex
--- OUTSIDE RECORDS SUMMARY | 2024-05-14 09:43 | XMS_ITS | Continuity of Care Document ---
Author Organization [facility] Address [address], [address] [place] [address]- Care Team Providers Care Willow Analyst Name Role Phone Sona ALVARES, Cm Savage Primary Care Physician [place] [facility] [place]s): 06/18/22 - 07/18/22 [facility] [address], [address], [address] [place] [address]- Allergies, Adverse Reactions, Alerts Substance Reaction Severity [...] 0 Refills, Maintenance, 07/10/22 12:24:00 EST, Tablet, [facility], Partial fill upon patient request if the prescription is for a schedule II opioid drug., 163, cm, 07/10/22 11:42:00... Start Date: 07/10/22 Stop Date: 08/09/22 Status: Ordered aspirin 81 mg oral delayed release tablet 81 mg, By Mouth, Daily, # 30 tablet, Refills 3, Tot. Refills 3, Maintenance, 10/03/21 8:10:00 EST, Route to Pharmacy Electronically, [facility], Partial fill upon patient request if theprescription is for a schedule II opioid drug., 162... Start Date: 10/03/21 Stop Date: 01/31/22 Status: Ordered atorvastatin 80 mg oral tablet 1 tablet = 80 mg, By Mouth, Daily, # 30 tablet, 0 Refills, Maintenance, 07/10/22 12:35:00 EST, Tablet, [facility], Partial fill upon patient [...] Confirmed Active Hypertension Confirmed Active Obese class I Confirmed Active Type 2 diabetes mellitus Confirmed Active Social History Social History Type Response Smoking Status Never (less than 100 in lifetime) entered on: 01/04/21 Sex Patient Care team information Care Team Personnel Name: Cm Magallanes MD Position: [facility] Physician (General Medicine) Member Role: PCP Address: Address: [address] [place] [address] #[facility] [address] Sandra Samantha [address] Name: Ainsley Anderson RN Position: [facility] RN Member Role: Primary Care Nurse Name: Monica Sun RN Position: [facility] RN Member Role: Primary Care Nurse Name: Ginger Jones RN Position: [facility] RN Member Role: Primary Care Nurse Name: Ramsey Herrera RN Position: [facility] RN Member Role: Primary Care Nurse Name: Di Perez RN Position: [facility] RN Member Role: Primary Care Nurse Name: Priti Wagoner RN Position: S RN Member Role: Primary Care Nurse Name: Yaa Alexander RN Position: [facility] RN Member Role: Primary Care Nurse Name: Bhavya Ricardo RN Position: [facility] RN Member Role: Primary Care Nurse Name: Sarah Augustin RN Position: [facility] RN Member Role: Primary Care Nurse Name: Josie Taylor RN Position: [facility] RN Member Role: Primary Care Nurse Name: Rachel Moreno RN Position: [facility] RN Member Role: Primary Care [...] МАРИНА HOBBS Address: home [address] [place] [address]
--- OUTSIDE RECORDS SUMMARY | 2024-05-14 09:43 | XMS_ITS | Continuity of Care Document ---
Author Organization [facility] Address [address] [place] [address] Terrence wil[address], [address] [place] [address]- Care Team Providers Care Experimental Welder Name Role Phone Sona ALVARES, Cm Savage Primary Care Physician [place] [facility] [place] 12[place]28/21 [facility] [address] [place] [address] Drive, [address] [place] [address]- Allergies, Adverse Reactions, Alerts Substance Reaction Severity Status Zocor aching Active Byetta Prefilled Pen nauseous and sick Method of giving glucose Active Zoloft Mild Active Glucophage nauseous Active [...] 10/03/21 10:11:00 EST, Route to Pharmacy Electronically, [facility], Partial fill upon patient request if the prescription is for a schedule II opioid... Start Date: 10/03/21 Status: Ordered aspirin 81 mg oral delayed release tablet 81 mg, By Mouth, Daily, # 30 tablet, Refills 3, Tot. Refills 3, Maintenance, 10/03/21 8:10:00 EST, Route to Pharmacy Electronically, [facility], Partial fill upon patient request if theprescription is for a schedule II opioid drug., 162... Start Date: 10/03/21 Stop Date: 01/31/22 Status: Ordered atorvastatin 40 mg oral tablet 1 tablet = 40 mg, By Mouth, Daily at bedtime, # 30 tablet, 0 Refills, Maintenance, 10/03/21 8:10:00EST, Tablet, [facility], Partial fill upon patient request [...] 0 Refills, Maintenance, 10/03/21 8:22:00 EST, Tablet, [facility], Partial fill upon patient request [...] 10/03/21 8:10:00 EST, Route to Pharmacy Electronically, [facility], Partial fill upon patient request [...]
--- OUTSIDE RECORDS SUMMARY | 2024-05-14 09:43 | XMS_ITS | Continuity of Care Document ---
Author Organization [facility] Address Unknown Care Team Providers Care Garment Cutter Name Role Phone Sona ALVARES, Cm Savage Primary Care Physician ( [phone] Encounter [facility] [place] Date(s): 10/18/21 - 11/17/21 [facility] Attending Physician: Kyle Lackey Admitting Physician: [...] 10/03/21 10:11:00 EST, Route to Pharmacy Electronically, [facility], Partial fill upon patient request if the prescription is for a schedule II opioid... Start Date: 10/03/21 Status: Ordered aspirin 81 mg oral delayed release tablet 81 mg, By Mouth, Daily, # 30 tablet, Refills 3, Tot. Refills 3, Maintenance, 10/03/21 8:10:00 EST, Route to Pharmacy Electronically, [facility], Partial fill upon patient request if theprescription is for a schedule II opioid drug., 162... Start Date: 10/03/21 Stop Date: 01/31/22 Status: Ordered atorvastatin 40 mg oral tablet 1 tablet = 40 mg, By Mouth, Daily at bedtime, # 30 tablet, 0 Refills, Maintenance, 10/03/21 8:10:00EST, Tablet, [facility], Partial fill upon patient request [...] 0 Refills, Maintenance, 10/03/21 8:22:00 EST, Tablet, [facility], Partial fill upon patient request [...] 10/03/21 8:10:00 EST, Route to Pharmacy Electronically, [facility], Partial fill upon patient request [...]
--- OUTSIDE RECORDS SUMMARY | 2024-05-14 09:43 | XMS_ITS | Continuity of Care Document ---
Author Organization [facility] Address [address] [place] [address]- Care Team Providers Care Converter Skimmer Name Role Phone Cm Magallanes MD Primary Care Physician Encounter [facility] [place] Date(s): 02/06/23 - 02/13/23 [facility] [address] [place], [place] [address] Referring Physician: Cm Magallanes MD Allergies, Adverse [...] 0 Refills, Maintenance, 07/10/22 12:24:00 EST, Tablet, [facility], Partial fill upon patient request if the prescription is for a schedule II opioid drug., 163, cm, 07/10/22 11:42:00... Start Date: 07/10/22 Stop Date: 08/09/22 Status: Ordered aspirin 81 mg oral delayed release tablet 81 mg, By Mouth, Daily, # 30 tablet, Refills 3, Tot. Refills 3, Maintenance, 10/03/21 8:10:00 EST, Route to Pharmacy Electronically, [facility], Partial fill upon patient request if theprescription is for a schedule II opioid drug., 162... Start Date: 10/03/21 Stop Date: 01/31/22 Status: Ordered atorvastatin 80 mg oral tablet 1 tablet = 80 mg, By Mouth, Daily, # 30 tablet, 0 Refills, Maintenance, 07/10/22 12:35:00 EST, Tablet, [facility], Partial fill upon [...] Confirmed Active Obese class II Confirmed Active Severe obesity (BMI 35.0-39.9) with comorbidity Confirmed Active Type 2 diabetes mellitus Confirmed Active Vital Signs Most recent to oldest [Reference Range]: 1 Height 163 cm (02/06/23 9:52 AM) Weight 95.5 kg (02/06/23 9:52 AM) Oxygen Saturation [94-100 %] 97 % (02/06/23 9:52 AM) Pulse Rate [55-90 bpm] 104 bpm *H* (02/06/23 9:52 AM) Body Mass Index [18.5-24.99 kg/m2] 35.94 kg/m2 *>HHI* (02/06/23 9:52 AM) Blood Pressure [90-138/55-84 mm Hg] 134/ 70mm Hg (02/06/23 9:52 AM) Blood pressure sites Arm, left (02/06/23 9:52 AM) Social History Social History Type Response Smoking Status Never (less than 100 in lifetime) entered on: 01/04/21 Sex Note * Pepper Milton: PERFORM, SIGN, VERIFY Event Display: Patient Education/Instruction Authored Date: [id number] [facility] [address] Clinical Summary Name SINA HOBBS Age 77 Years 1945 PCP Sona ALVARES, Cm Savage PCP Visit Date 02/06/2023 09:46:00 Additional Instructions: Scheduled Appointments?? Future Appointments ?No Future Appointments Scheduled Follow-Up Instructions ?? With: Address: When: Araceli ALVARES, Concepcion Holliday In 1 year Comments: w/ carotid duplex Diagnosis Medications: Please continue your medications until treatment is completed or stopped by your provider. Discuss any questions related to medications with your provider. Medications to Continue with No Changes These medications were not printed or sent to your pharmacy Acetaminophen (acetaminophen 325 mg oral tablet) 650 Milligram Oral every 6 hours. Next Dose: apixaban (apixaban 5 mg oral tablet) 1 tab(s) Oral twice a day for 30 Days. Refills: 0. Next Dose: Aspirin (aspirin 81 mg oral delayed release tablet) 81 Milligram Oral Daily for 30 Days. Refills: 3. Next Dose: Atorvastatin (atorvastatin 80 mg oral tablet) 1 tab(s) Oral Daily. Refills: 0. Next Dose: Famotidine (famotidine 10 mg oral tablet) 1 tab(s) Oral twice a day. Next Dose: insulin degludec (Tresiba FlexTouch 100 units/mL subcutaneous solution) 36 unit(s) Subcutaneous Infusion Daily. Next Dose: Lisinopril (lisinopril 40 mg oral tablet) 1 tab(s) Oral Daily. Next Dose: Mirtazapine 45 Milligram Oral Daily at Bedtime. Next Dose: Morphine (morphine 15 mg oral tablet, immediate release) 1 tab(s) Oral Daily at Bedtime. Next Dose: Ondansetron 4 Milligram Oral as needed as needed for nausea/vomiting. Next Dose: PrednisoLONE 5 Milligram Oral Daily. Next Dose: Allergy Info:?? Trulicity; Byetta Prefilled Pen; Crestor; Glucophage; Zoloft; Zocor Medications Given This Visit Future Orders ?No future orders Vital Signs Height 163 cm Weight 95.5 kg BMI 35.94 kg/m2 Blood Pressure 134 mm Hg/70 mm Hg Temperature Pulse Rate 104 bpm Respiratory Rate 02 Sat Mode of Delivery 97 %/ You can now view a summary of your hospital visit from the comfort of your home through a free online portal called [employer]. [employer] is a website that allows you to securely view your medical information including discharge summary, medications and follow-up visits. ??You can alsosend a secure electronic message to your doctor???s office to request appointments, renew medications or just ask a question. You can enroll at [email or web address] or register during your next office visit. Disclaimer:?? The information provided is of a general nature and is intended to be used in conjunction with the recommendations and advice of your health care practitioner. ??Every effort has been made to ensure that the information provided is accurate and complete at the time it is provided to you however, as your needs change, or, as new ??information becomes available, different or additional instructions may be required. If you have questions, please consult with your primary care provider or pharmacist, as appropriate. ??This information is not intended to serve as substitution for assessment and evaluation by a qualified health care provider. If you do not have a primary care provider, you may find a [facility] provider by calling [facility] [employer] [facility] at [phone]. For information about the plan of care including goals and instructions for your diagnosis, please see the patient education orders section of this document. Patient Education Materials?? The content of this educational material or handout may have been modified, supplemented, or adapted from its original content and format to support your individualized medical care. Patient Care team information Care Team Personnel Name: BelcastCm sevilla MD Position: [facility] Physician - Primary Care Member Role: PCP Address: Address: [address] [place] [address] [address] [place] [address]- Name: Monica Sun RN Position: [facility] RN Member Role: Primary Care Nurse Name: Ginger Jones RN Position: [facility] RN Member Role: Primary Care Nurse Name: Ramsey Herrera RN Position: [facility] RN Member Role: Primary Care Nurse Name: Di Perez RN Position: [facility] RN Member Role: Primary Care Nurse Name: Priti Wagoner RN Position: [facility] RN Member Role: Primary Care Nurse Name: Yaa Alexander RN Position: [facility] RN Member Role: Primary Care Nurse Name: Sarah Augustin RN Position: [facility] RN Member Role: Primary Care Nurse Name: Josie Taylor RN Position: [facility] RN Member Role: Primary Care Nurse Name: Rachel Moreno RN Position: [facility] RN Member Role: Primary Care Nurse Name: Sarah Cash LPN Position: [facility] RN Member Role: Primary Care Nurse Name: Izabela Parikh RN Position: [facility] RN Member Role: Primary Care Nurse Name: Gita Borden LPN Position: [facility] RN Member Role: Primary Care Nurse Name: Annie Lehman RN Position: [facility] RN Member Role: Primary Care Nurse Care Team Related Persons Name: МАРИНА HOBBS Address: home [address] [place] [address]
--- OUTSIDE RECORDS SUMMARY | 2024-05-14 09:44 | XMS_ITS | Continuity of Care Document ---
Author Organization [facility] Address [address] [place], [place] [address]marianna [address], [address] [place] [address]- Care Team Providers Care Production Estimator Name Role Phone Sona ALVARES, Cm Savage Primary Care Physician [place] [facility] [place]/22 [facility] [address] [place] [address] Drive, [address] [place], [place] [address] Allergies, Adverse Reactions, Alerts Substance [...] 0 Refills, Maintenance, 07/10/22 12:24:00 EST, Tablet, [facility], Partial fill upon patient request if the prescription is for a schedule II opioid drug., 163, cm, 07/10/22 11:42:00... Start Date: 07/10/22 Stop Date: 08/09/22 Status: Ordered aspirin 81 mg oral delayed release tablet 81 mg, By Mouth, Daily, # 30 tablet, Refills 3, Tot. Refills 3, Maintenance, 10/03/21 8:10:00 EST, Route to Pharmacy Electronically, [facility], Partial fill upon patient request if theprescription is for a schedule II opioid drug., 162... Start Date: 10/03/21 Stop Date: 01/31/22 Status: Ordered atorvastatin 80 mg oral tablet 1 tablet = 80 mg, By Mouth, Daily, # 30 tablet, 0 Refills, Maintenance, 07/10/22 12:35:00 EST, Tablet, [facility], Partial fill upon patient request if [...] Team Personnel Name: Cm Magallanes MD Position: [facility] Physician (General Medicine) Member Role: PCP Address: Address: [address] [place] [address] #[facility] [place]ee[place]xi Sandra Samantha [address] Name: Ainsley Anderson RN Position: [facility] RN Member Role: Primary Care Nurse Name: Monica Sun RN Position: [facility] RN Member Role: Primary Care Nurse Name: Ginger Jones RN Position: [facility] RN Member Role: Primary Care Nurse Name: Ramsey Herrera RN Position: [facility] RN Member Role: Primary Care Nurse Name: Di Perez RN Position: [facility] RN Member Role: Primary Care Nurse Name: Priti Wagoner RN Position: S RN Member Role: Primary Care Nurse Name: Yaa Alexander RN Position: [facility] RN Member Role: Primary Care Nurse Name: Bhavya Ricardo RN Position: [facility] RN Member Role: Primary Care Nurse Name: Sarah Augustin RN Position: [facility] RN Member Role: Primary Care Nurse Name: Josie Taylor RN Position: [facility] RN Member Role: Primary Care Nurse Name: Rachel Moreno RN Position: [facility] RN Member Role: Primary Care Nurse [...] МАРИНА HOBBS Address: home [address] [place] [place] [address]
--- OUTSIDE RECORDS SUMMARY | 2024-05-14 09:44 | XMS_ITS | Continuity of Care Document ---
Author Organization [facility] Address [address] [place] [address]- Care Team Providers Care Elementary Tutor Name Role Phone Sona ALVARES, Cm Savage Primary Care Physician [place] [facility] [place]): 11/01/21 - 12/01/[address] [address] Attending Physician: Kyle Lackey Admitting Physician: Kyle Lackey Referring Physician: AdmtrKyle Allergies, Adverse Reactions, Alerts [...] 10/03/21 10:11:00 EST, Route to Pharmacy Electronically, [facility], Partial fill upon patient request if the prescription is for a schedule II opioid... Start Date: 10/03/21 Status: Ordered aspirin 81 mg oral delayed release tablet 81 mg, By Mouth, Daily, # 30 tablet, Refills 3, Tot. Refills 3, Maintenance, 10/03/21 8:10:00 EST, Route to Pharmacy Electronically, [facility], Partial fill upon patient request if theprescription is for a schedule II opioid drug., 162... Start Date: 10/03/21 Stop Date: 01/31/22 Status: Ordered atorvastatin 40 mg oral tablet 1 tablet = 40 mg, By Mouth, Daily at bedtime, # 30 tablet, 0 Refills, Maintenance, 10/03/21 8:10:00EST, Tablet, [facility], Partial fill upon patient [...] 0 Refills, Maintenance, 10/03/21 8:22:00 EST, Tablet, [facility], Partial fill upon patient [...] 10/03/21 8:10:00 EST, Route to Pharmacy Electronically, [facility], Partial fill upon patient [...]
--- OUTSIDE RECORDS SUMMARY | 2024-05-14 09:44 | XMS_ITS | Continuity of Care Document ---
Author Organization [facility] Address [address] [place] [address]- Care Team Providers Care Manager Practice Name Role Phone Sona ALVARES, Cm Savage Primary Care Physician [place] [facility] [id number] Date(s): 01/02/24 - 03/20/24 [facility] [address] [place], [place] [address] Attending Physician: Sarah Elliott DPM Admitting Physician: Sarah Elliott DPM Referring Physician: Sarah Elliott DPM Allergies, Adverse Reactions, Alerts Substance Reaction Severity Status Zocor aching Active Zoloft Mild Active Byetta Prefilled Pen nauseous and sick Method of giving glucose Active Trulicity Active Glucophage nauseous Active Crestor aches and pain Active Medications acetaminophen 325 mg oral tablet 650 mg, By Mouth, Every 6 hours, Refills 0, Maintenance, 06/18/18 8:39:52 EDT Start Date: 06/18/18 Status: Ordered apixaban 5 mg oral tablet 1 tablet = 5 mg, By Mouth, 2 times a day, # 60 tablet, 0 Refills, Maintenance, 07/10/22 12:24:00 EST, Tablet, [facility], Partial fill upon patient request if the prescription is for a schedule II opioid drug., 163, cm, 07/10/22 11:42:00... Start Date: 07/10/22 Stop Date: 08/09/22 Status: Ordered aspirin 81 mg oral delayed release tablet 81 mg, By Mouth, Daily, # 30 tablet, Refills 3, Tot. Refills 3, Maintenance, 10/03/21 8:10:00 EST, Route to Pharmacy Electronically, [facility], Partial fill upon patient request if theprescription is for a schedule II opioid drug., 162... Start Date: 10/03/21 Stop Date: 01/31/22 Status: Ordered atorvastatin 80 mg oral tablet 1 tablet = 80 mg, By Mouth, Daily, # 30 tablet, 0 Refills, Maintenance, 07/10/22 12:35:00 EST, Tablet, [facility], Partial fill upon patient request if [...] Team Personnel Name: Cm Magallanes MD Position: [facility] Physician - Primary Care Member Role: PCP Address: Address: [address] [place] [address]- Name: Monica Sun RN Position: [facility] AMB Nurse Member Role: Primary Care Nurse Name: Ramsey Herrera RN Position: [facility] RN Member Role: Primary Care Nurse Name: Di Perez RN Position: [facility] RN Member Role: Primary Care Nurse Name: Priti Wagoner RN Position: [facility] RN Member Role: Primary Care Nurse Name: Yaa Alexander NP Position: [facility] PCO Associate Professional Member Role: Primary Care Nurse Address: Address: [address] [place] [address]- Name: Bhavya Ricardo RN Position: [facility] Nurse Member Role: Primary Care Nurse Name: Sarah Augustin RN Position: [facility] RN Member Role: Primary Care Nurse Name: Josie Taylor RN Position: [facility] Onco RN Member Role: Primary Care Nurse Name: Rachel Moreno RN Position: [facility] RN Member Role: Primary Care Nurse Name: Sarah Cash LPN Position: S RN Member Role: Primary Care Nurse Name: Izabela Parikh RN Position: [facility] RN Member Role: Primary Care Nurse Name: Gita Borden LPN Position: [facility] RN Member Role: Primary Care Nurse Name: Annie Lehman RN Position: [facility] RN Member Role: Primary Care Nurse Care Team Related Persons Name: МАРИНА HOBBS Address: [address] [address]
--- OUTSIDE RECORDS SUMMARY | 2024-05-14 09:44 | XMS_ITS | Continuity of Care Document ---
Author Organization [facility] Address [address] [place] [address]- Care Team Providers Care Net Developer Architect Name Role Phone Sona ALVARES, Cm Savage Primary Care Physician En[place] [facility] [place] Date(s): 02/28/24 - 04/30/24 [facility] [address] [place] [address]- Attending Physician: Nidia Cruz DO Admitting Physician: Nidia Cruz DO Referring Physician: Fredrick Hinkle Allergies, Adverse Reactions, Alerts Substance Reaction Severity [...] 0 Refills, Maintenance, 07/10/22 12:24:00 EST, Tablet, [facility], Partial fill upon patient request if the prescription is for a schedule II opioid drug., 163, cm, 07/10/22 11:42:00... Start Date: 07/10/22 Stop Date: 08/09/22 Status: Ordered chlorthalidone 25 mg oral tablet [...] 100 in lifetime) entered on: 01/04/21 Sex Radiology * Event Display: MRI Spine, Non- BH Authored Date: [id number] Patient Care team information Care Team Personnel Name: Cm Magallanes MD Position: [facility] Physician - Primary Care Member Role: PCP Address: Address: [address] [place] [address] [address] [place] [address]- [place] Name: Monica Sun RN Position: [facility] AMB Nurse Member Role: Primary Care Nurse Name: Ramsey Herrera RN Position: [facility] RN Member Role: Primary Care Nurse Name: Di Perez RN Position: [facility] RN Member Role: Primary Care Nurse Name: Priti Wagoner RN Position: [facility] RN Member Role: Primary Care Nurse Name: Yaa Alexander NP Position: [facility] PCO Associate Professional Member Role: Primary Care Nurse Address: Address: [address] [place] [address] [place] [address]- Name: Bhavya Ricardo RN Position: [facility] AMB Nurse Member Role: Primary Care Nurse Name: Sarah Augustin RN Position: [facility] RN Member Role: Primary Care Nurse Name: Josie Taylor RN Position: [facility] Onco RN Member Role: Primary Care Nurse Name: Rachel Moreno RN Position: [facility] RN Member Role: Primary Care Nurse Name: Sarah Cash LPN Position: S RN Member Role: Primary Care Nurse Name: Izabela Parikh RN Position: [facility] RN Member Role: Primary Care Nurse Name: Gita Borden LPN Position: [facility] RN Member Role: Primary Care Nurse Name: Annie Lehman RN Position: [facility] RN Member Role: Primary Care Nurse Care Team Related Persons Name: АМРИНА HOBBS Address: home [address] [place] [address]
--- OUTSIDE RECORDS SUMMARY | 2024-05-14 09:44 | XMS_ITS | Continuity of Care Document ---
Author Organization [facility] Address [address] [place] [address]- Care Team Providers Care Citrus Picker Name Role Phone Cm Magallanes MD Primary Care Physician [place] [facility] [place] - 09/08/22 [facility] [address] [place] [id number] Attending Physician: Cm Magallanes MD Admitting Physician: Cm Magallanes MD Referring Physician: Justin Carvajal MD Allergies, Adverse Reactions, Alerts Substance Reaction [...] 0 Refills, Maintenance, 07/10/22 12:24:00 EST, Tablet, [facility], Partial fill upon patient request if the prescription is for a schedule II opioid drug., 163, cm, 07/10/22 11:42:00... Start Date: 07/10/22 Stop Date: 08/09/22 Status: Ordered aspirin 81 mg oral delayed release tablet 81 mg, By Mouth, Daily, # 30 tablet, Refills 3, Tot. Refills 3, Maintenance, 10/03/21 8:10:00 EST, Route to Pharmacy Electronically, [facility], Partial fill upon patient request if theprescription is for a schedule II opioid drug., 162... Start Date: 10/03/21 Stop Date: 01/31/22 Status: Ordered atorvastatin 80 mg oral tablet 1 tablet = 80 mg, By Mouth, Daily, # 30 tablet, 0 Refills, Maintenance, 07/10/22 12:35:00 EST, Tablet, [facility], Partial fill upon patient request [...] Personnel Name: Cm Magallanes MD Position: [facility] Physician (General Medicine) Member Role: PCP Address: Address: [address] [place] [address] #[facility] [address] [address] Name: Ainsley Anderson RN Position: [facility] RN Member Role: Primary Care Nurse Name: Monica Sun RN Position: [facility] RN Member Role: Primary Care Nurse Name: Ginger Jones RN Position: [facility] RN Member Role: Primary Care Nurse Name: Ramsey Herrera RN Position: [facility] RN Member Role: Primary Care Nurse Name: Di Perez RN Position: [facility] RN Member Role: Primary Care Nurse Name: Priti Wagoner RN Position: [facility] RN Member Role: Primary Care Nurse Name: Yaa Alexander RN Position: [facility] RN Member Role: Primary Care Nurse Name: Bhavya Ricardo RN Position: [facility] RN Member Role: Primary Care Nurse Name: Sarah Augustin RN Position: S RN Member Role: Primary Care Nurse Name: Josie Taylor RN Position: [facility] RN Member Role: Primary Care Nurse Name: Rachel Moreno RN Position: S RN Member Role: Primary Care Nurse Name: Sarah Cash LPN Position: S RN Member Role: Primary Care Nurse Name: Izabela Parikh RN Position: [facility] RN Member Role: Primary Care Nurse Name: Gita Borden LPN Position: S RN Member Role: Primary Care Nurse Name: Annie Lehman Position: S RN Member Role: Primary Care Nurse Care Team Related Persons Name: МАРИНА HOBBS Address: home [address] [place] [address]
--- OUTSIDE RECORDS SUMMARY | 2024-05-14 09:44 | XMS_ITS | Continuity of Care Document ---
Author Organization [facility] Address [address] [place] [address]- Care Team Providers Care Transfer And Line Up Worker Name Role Phone Sona ALVARES, Cm Savage Primary Care Physician ( [phone] [place] [facility] [place] 10/09/21 - 11/08/[address] [address] Attending Physician: Kyle Lackey Admitting Physician: Kyle [...] 10/03/21 10:11:00 EST, [facility] to [facility], [facility] [...] tablet, 0 Refills, Maintenance, 10/03/21 8:10:00EST, Tablet, [facility], Partial fill [...] 0 Refills, Maintenance, 10/03/21 8:22:00 EST, Tablet, [facility], Partial fill [...]
--- OUTSIDE RECORDS SUMMARY | 2024-05-14 09:44 | XMS_ITS | Continuity of Care Document ---
Author Organization [facility] Address [address] [place] [address]- Care Team Providers Care District Scout Executive Name Role Phone Sona ALVARES, Cm [place] Primary Care Physician ( [phone] [place] [facility] [place]): 01/12/22 - 01/12/[address] [address]- Discharge Disposition: A-D/C Home Attending Physician: Rogelio Montenegro MD Admitting Physician: Rogelio Montenegro MD Referring Physician: Rogelio Montenegro MD Allergies, Adverse Reactions, Alerts Substance Reaction Severity Status Zocor aching Active Zoloft Mild Active Byetta Prefilled Pen nauseous and sick Method of giving glucose Active Glucophage nauseous Active Crestor aches and pain Active Medications acetaminophen 325 mg oral tablet 650 mg, By Mouth, Every 6 hours, Refills 0, Maintenance, 06/18/18 8:39:52 EDT Start Date: 06/18/18 Status: Ordered allopurinol 300 mg oral tablet 300 mg, 1, tablet, By Mouth, Daily, # 90 tablet, Refills 0, Maintenance, 01/12/22 6:53:00 EDT, Partial fill upon patient request if the prescription is for a schedule II opioid drug. Start Date: 01/12/22 Status: Ordered amLODIPine 5 mg oral tablet 5 mg, 1, tablet, By Mouth, Daily, # 30 tablet, Refills 0, Tot. Refills 0, Maintenance, 10/03/21 10:11:00 EST, Route to Pharmacy Electronically, [facility], Partial fill upon patient request if the prescription is for a schedule II opioid... Start Date: 10/03/21 Status: Ordered aspirin 81 mg oral delayed release tablet 81 mg, By Mouth, Daily, # 30 tablet, Refills 3, Tot. Refills 3, Maintenance, 10/03/21 8:10:00 EST, Route to Pharmacy Electronically, [facility] 3, Partial fill upon patient request if theprescription is for a schedule II opioid drug., 162... Start Date: 10/03/21 Stop Date: 01/31/22 Status: Ordered atorvastatin 40 mg oral tablet 1 tablet = 40 mg, By Mouth, Daily at bedtime, # 30 tablet, 0 Refills, Maintenance, 10/03/21 8:10:00EST, Tablet, [facility], Partial fill upon patient request if the prescription is fora schedule II opioid drug., 162.6, cm, 08/25/21 6:5... Start Date: 10/03/21 Status: Ordered chlorthalidone 25 mg oral tablet 25 mg, 1, tablet, By Mouth, Daily, # 30 tablet, Refills 0, Maintenance, 01/12/22 6:54:00 EDT, Partial fill upon patient request if the prescription is for a schedule II opioid drug. Start Date: 01/12/22 Status: Ordered Gabapentin = 100 mg, By [...] 0 Refills, Maintenance, 10/03/21 8:22:00 EST, Tablet, [facility] 3, Partial fill upon patient request if [...] 10/03/21 8:10:00 EST, Route to Pharmacy Electronically, [facility], Partial fill upon patient request if the prescription is for a schedule II opioid... Start Date: 10/03/21 Stop Date: 01/01/22 Status: Ordered Remeron 45 mg oral tablet 1 tablet = 45 mg, By Mouth, Daily at bedtime, 0 Refills, Maintenance, 11/01/16 16:01:17 Start Date: 11/01/16 Status: Ordered Trulicity Pen 3 mg/0.5 mL subcutaneous solution 0.5 mL = 3 mg, Subcutaneous Injection, Every week, rotate injection sites, # 2 mL, 0 Refills, Maintenance, 01/12/22 6:55:00 EDT, Solution, Partial fill upon patient request if the prescription is fora schedule II opioid drug. Start Date: 01/12/22 Status: Ordered Problem List Condition Effective Dates Status Health Status Inform ant Obese class II(Confirmed) Active Vital Signs Most recent to oldest [Reference Range]: 1 2 3 Height 162 cm (01/12/22 7:15 AM) Oxygen Saturation [94-100 %] 100 % (01/12/22 7:58 AM) 98 % (01/12/22 7:52 AM) 97 % (01/12/22 7:15 AM) Pulse Rate [55-90 bpm] 85 bpm (01/12/22 7:58 AM) 99 bpm *H* (01/12/22 7:52 AM) 100 bpm *H* (01/12/22 7:15 AM) Blood Pressure [90-138/55-84 mm Hg] 124/69mm Hg (01/12/22 7:58 AM) 122/68mm Hg (01/12/22 7:52 AM) 150/75mm Hg *H* (01/12/22 7:15 AM) Respiratory Rate [16-30 br/min] 16 br/min (01/12/22 7:58 AM) 16 br/min (01/12/22 7:52 AM) 18 br/min (01/12/22 7:15 AM) Temperature [96.8-100.4 DegF] 97.5 DegF (01/12/22 7:15 AM) Mode of Delivery (Oxygen) Room air (01/12/22 7:58 AM) Room air (01/12/22 7:52 AM) Room air (01/12/22 7:15 AM) Blood pressure sites Arm, left (01/12/22 7:58 AM) Arm, left (01/12/22 7:52 AM) Arm, left (01/12/22 7:15 AM) Temperature Route Temporal (01/12/22 7:15 AM) Dry Weight 94.8 kg (01/12/22 7:15 AM) Dry Weight Obtained Via Patient/family s tated (01/12/22 7:15 AM) Social History Social History Type Response Smoking Status Never (less than 100 in lifetime) entered on: 01/04/21 Sex
--- OUTSIDE RECORDS SUMMARY | 2024-05-14 09:44 | XMS_ITS | Continuity of Care Document ---
Author Organization [facility] Address Unknown Care Team Providers Care Data Entry Clerk Name Role Phone Sona ALVARES, Cm Savage Primary Care Physician En[place] [facility] [place] Date(s): 12/19/21 - 01/18/22 [facility] Allergies, Adverse Reactions, Alerts Substance Reaction Severity [...] 10:11:00 EST, Route to Pharmacy Electronically, [facility], Partial fill upon patient request if the prescription is for a schedule II opioid... Start Date: 10/03/21 Status: Ordered aspirin 81 mg oral delayed release tablet 81 mg, By Mouth, Daily, # 30 tablet, Refills 3, Tot. Refills 3, Maintenance, 10/03/21 8:10:00 EST, Route to Pharmacy Electronically, [facility], Partial fill upon patient request if theprescription is for a schedule II opioid drug., 162... Start Date: 10/03/21 Stop Date: 01/31/22 Status: Ordered atorvastatin 40 mg oral tablet 1 tablet = 40 mg, By Mouth, Daily at bedtime, # 30 tablet, 0 Refills, Maintenance, 10/03/21 8:10:00EST, Tablet, [facility], Partial fill upon patient [...] Refills, Maintenance, 10/03/21 8:22:00 EST, Tablet, [facility], Partial fill upon patient [...] 8:10:00 EST, Route to Pharmacy Electronically, [facility], Partial fill upon patient [...]
--- OUTSIDE RECORDS SUMMARY | 2024-05-14 09:44 | XMS_ITS | Continuity of Care Document ---
Author Organization [facility] Address [address] [place] [address]- Care Team Providers Care Stretcher Helper Name Role Phone Sona ALVARES, Cm [place] Primary Care Physician [place] [facility] [place]): 07/16/22 - 08/15/22 [facility] [address] [place], [place] [address] Allergies, Adverse Reactions, Alerts Substance Reaction Severity [...] 0 Refills, Maintenance, 07/10/22 12:24:00 EST, Tablet, [facility], Partial fill upon patient request if the prescription is for a schedule II opioid drug., 163, cm, 07/10/22 11:42:00... Start Date: 07/10/22 Stop Date: 08/09/22 Status: Ordered aspirin 81 mg oral delayed release tablet 81 mg, By Mouth, Daily, # 30 tablet, Refills 3, Tot. Refills 3, Maintenance, 10/03/21 8:10:00 EST, Route to Pharmacy Electronically, [facility], Partial fill upon patient request if theprescription is for a schedule II opioid drug., 162... Start Date: 10/03/21 Stop Date: 01/31/22 Status: Ordered atorvastatin 80 mg oral tablet 1 tablet = 80 mg, By Mouth, Daily, # 30 tablet, 0 Refills, Maintenance, 07/10/22 12:35:00 EST, Tablet, [facility], Partial fill upon patient request [...] (General Medicine) Member Role: PCP Address: Address: [address] [place] [address] [address] [place], [place] [address] Name: Ainsley Anderson RN Position: [facility] RN Member Role: Primary Care Nurse Name: Monica Sun RN Position: S RN Member Role: Primary Care Nurse Name: Ginger Jones RN Position: S RN Member Role: Primary Care Nurse Name: Ramsey Herrera RN Position: S RN Member Role: Primary Care Nurse Name: Di Perez RN Position: S RN Member Role: Primary Care Nurse Name: Priti Wagoner RN Position: S RN Member Role: Primary Care Nurse Name: Yaa Alexander RN Position: [facility] RN Member Role: Primary Care Nurse Name: Bhavya Ricardo RN Position: S RN Member Role: Primary Care Nurse Name: Sarah Augustin RN Position: S RN Member Role: Primary Care Nurse Name: Josie Taylor RN Position: S RN Member Role: Primary [...] Persons Name: МАРИНА HOBBS Address: home [address] [facility] [place] [address]
--- OUTSIDE RECORDS SUMMARY | 2024-05-14 09:44 | XMS_ITS | Continuity of Care Document ---
Author Organization [facility] Address [address] [place], [place] [address]marianna wilcox, [address] [place] [address]- Care Team Providers Care Director [employer]eron[employer] Commission Name Role Phone Cm Magallanes MD Primary Care Physician [place] [facility] [id number] Date(s): 03/29/22 - 04/05/22 [facility] [address] [place] [address] Drive, [address] [place] [address]- Attending Physician: Josette Multani MD Referring Physician: Cm Magallanes MD Allergies, Adverse [...] 8:10:00 EST, Route to Pharmacy Electronically, [facility], Partial fill upon patient request if theprescription is for a schedule II opioid drug., 162... Start Date: 10/03/21 Stop Date: 01/31/22 Status: Ordered atorvastatin 80 mg oral tablet 1 tablet = 80 mg, By Mouth, Daily at bedtime, # 30 tablet, 0 Refills, Maintenance, 02/27/22 10:43:00 EDT, Tablet, [facility] #[id number], Partial fill upon patient request if the [...] opioid drug. Start Date: 02/12/22 Status: Ordered metoprolol (OP) 0 Refills, Maintenance, 2 Start Date: 03/29/22 Status: Ordered ondansetron 4 mg oral tablet, disintegrating 1 tablet = 4 mg, By Mouth, Every 8 hours, PRN as needed for nausea/vomiting, # 15 tablet, 0 Refills, Acute 04/12/22 10:00:00 EDT, 02/15/22 9:22:00 EDT, DIS Tablet, [facility]acy #[id number], Partial fill upon [...] 02/27/22 10:43:00 EDT, Route to Pharmacy Electronically, [facility]/pharmacy #[id number], Partial fill upon [...] I(Confirmed) Active Type 2 diabetes mellitus(Confirmed) Active Vital Signs Most recent to oldest [Reference Range]: 1 Height 163 cm (03/29/22 11:51 AM) Weight 90 kg (03/29/22 11:51 AM) Body Mass Index [18.5-24.99] 33.87 *>HHI* (03/29/22 11:51 AM) Social History Social History Type Response Smoking Status Never (less than 100 in lifetime) entered on: 01/04/21 Sex
--- OUTSIDE RECORDS SUMMARY | 2024-05-14 09:44 | XMS_ITS | Continuity of Care Document ---
Author Organization [facility] ter Address [address] [place] [address]- Care Team Providers Care Organ Recovery Coordinator Name Role Phone Sona ALVARES, Cm Savage Primary Care Physician ( [phone] [place] [facility] [place] - 01/30/[address] [address]- Encounter Diagnosis UTI (urinary tract infection)(Final) - 01/30/22 Discharge Disposition: A-D/C Home Attending Physician: Marek Evans MD Admitting Physician: Marek Evans MD Referring Physician: Not on Staff, Referring [...] 10:11:00 EST, Route to Pharmacy Electronically, [facility], Partial fill upon patient request if the prescription is for a schedule II opioid... Start Date: 10/03/21 Status: Ordered aspirin 81 mg oral delayed release tablet 81 mg, By Mouth, Daily, # 30 tablet, Refills 3, Tot. Refills 3, Maintenance, 10/03/21 8:10:00 EST, Route to Pharmacy Electronically, [facility], Partial fill upon patient request if theprescription is for a schedule II opioid drug., 162... Start Date: 10/03/21 Stop Date: 01/31/22 Status: Ordered atorvastatin 40 mg oral tablet 1 tablet = 40 mg, By Mouth, Daily at bedtime, # 30 tablet, 0 Refills, Maintenance, 10/03/21 8:10:00EST, Tablet, [facility], Partial fill upon patient request if the prescription is fora schedule II opioid drug., 162.6, cm, 08/25/21 6:5... Start Date: 10/03/21 Status: Ordered cephalexin monohydrate 500 mg oral tablet 1 tablet = 500 mg, By Mouth, 2 times a day, # 14 tablet, 0 Refills, Maintenance, 01/30/22 16:32:00 EDT, Tablet, [facility]/pharmacy #[id number], Partial fill upon patient request if the prescription is for a schedule II opioid drug., 163, cm, 01/30/22 10:42:00 EDT... Start Date: 01/30/22 Stop Date: 02/06/22 Status: Ordered chlorthalidone 25 mg oral tablet [...] Refills, Maintenance, 10/03/21 8:22:00 EST, Tablet, [facility], Partial fill upon patient request if the prescription is for aschedule II opioid drug., 162.6, cm, 08/25/21 6:51:... Start Date: 10/03/21 Status: Ordered MorPHINE Inj 4 mg, Injection, IV Push Slowly, Every 5 minutes for 3 doses/times, PRN for Pain , Moderate, and SBP greater than 100, Routine, 01/30/22 11:54:00 EDT, Stop date Limited # of times Start Date: 01/30/22 Status: Ordered Paroxetine = 10 mg, By [...] 8:10:00 EST, Route to Pharmacy Electronically, [facility], Partial fill upon [...] Status Inform ant Obese class II(Confirmed) Active Results Radiology Reports * Exam Date Time Procedure Performing Provider Status 01/30/22 11:17 AM Chest 2 Views Frontal and Lat Chhaya Ambrosio i; Auth (Verified) Notes: (Chest 2 Views Frontal and Lat) Reason For Exam: Angina RESULT: Chest 2 Views Frontal and Lat Chest 2 Views Frontal and Lat INDICATION: Chest pain. COMPARISON: 08/28/2007. FINDINGS: LINES AND TUBES: None. LUNGS AND PLEURA: Clear lungs. Normal pulmonary vascularity. No pleural effusion. No pneumothorax. HEART, MEDIASTINUM AND SATNAM: Heart is normal in size. Normal upper mediastinal and hilar contour. BONES AND SOFT TISSUES: No acute abnormality. There are are bilateral shoulder arthroplasty changes new compared to previous. IMPRESSION: No acute abnormality. WSN: [id number] Ordering Physician: Pedro Vela Dictated By: Valentín Larsen MD Dictated Date/Time: 01/30/22 11:32 a Reviewed By: Valentín Larsen MD Signed By: Valentín Larsen MD Signed Date/Time: 01/30/22 11:32 am Transcribed By: HUMAIRA Transcribed Date/Time: 01/30/22 11:30 am Vital Signs Most recent to oldest [Reference Range]: 1 2 3 Height 163 cm (01/30/22 10:42 AM) Oxygen Saturation [94-100 %] 100 % (01/30/22 5:30 PM) 100 % (01/30/22 3:47 PM) 100 % (01/30/22 12:40 PM) Pulse Rate [55-90 bpm] 101 bpm *H* (01/30/22 5:30 PM) 110 bpm *H* (01/30/22 3:47 PM) 87 bpm (01/30/22 12:40 PM) Blood Pressure [90-138/55-84 mm Hg] 134/63mm Hg (01/30/22 5:30 PM) 169/82mm Hg *H* (01/30/22 3:47 PM) 129/78mm Hg (01/30/22 12:40 PM) Respiratory Rate [16-30 br/min] 18 br/min (01/30/22 5:30 PM) 16 br/min (01/30/22 3:47 PM) 16 br/min (01/30/22 3:43 PM) Temperature [96.8-100.4 DegF] 98.0 DegF (01/30/22 12:40 PM) 98.2 DegF (01/30/22 11:48 AM) 98.3 DegF (01/30/22 10:42 AM) Mode of Delivery (Oxygen) Room air (01/30/22 5:30 PM) Room air (01/30/22 3:47 PM) Room air (01/30/22 12:40 PM) Blood pressure sites Arm, left (01/30/22 5:30 PM) Arm, left (01/30/22 3:47 PM) Arm, left (01/30/22 12:40 PM) Temperature Route Oral (01/30/22 12:40 PM) Oral (01/30/22 11:48 AM) Oral (01/30/22 10:42 AM) Dry Weight 91 kg (01/30/22 10:42 AM) Weight Obtained Via Patient/family state d (01/30/22 10:42 AM) Dry Weight Obtained Via Patient/family s tated (01/30/22 10:42 AM) Social History Social History Type Response Smoking Status Never (less than 100 in lifetime) entered on: 01/04/21 Sex
--- OUTSIDE RECORDS SUMMARY | 2024-05-14 09:44 | XMS_ITS | Continuity of Care Document ---
Author Organization [facility] Address [address] [address]- Care Team Providers Care Form Press Operator Name Role Phone Sona ALVARES, Cm Savage Primary Care Physician ( [phone] Encounter [facility] Date(s): 03/10/24 - 03/17/24 [id number] [address]- Attending Physician: Sarah Elliott DPM Admitting Physician: [...] 07/10/22 12:35:00 EST, Tablet, [facility], [...] 100 in lifetime) entered on: 01/04/21 Sex Cardiology * Event Display: VL Ankle/Brachial Indices Authored Date: [id number] Demographics Procedure Information Patient name: ANJEL ANDINO Procedure date: 03/10/2024 1:30 PM Corporate Proc. sub type: Extremities Arteries: Lower Arterial Plethysmography, PVR Limited Single Gender: Female Level. Date of : 1945 Accession No: [id number] Age: 78 year(s) Account No: [id number] Patient status: Routine Procedure Staff Admit Status: Outpatient Attending Physician: Malou Smith DPM Facility: [facility] Card Ordering physician: Malou Smith DPM Referring Physician: Malou Smith DPM Study location: [facility] Departmental Buyer: Finn Zapata Procedure consent obtained: Interpreting physician: Alexandru Laurent MD No Indications Claudication. Lower Extremity Findings Right Left Location Pressure (mmHg) Ratio Pressure (mmHg) Ratio Brachial 174 148 Great Toe 113 0.65 113 0.65 Right TBI: Left TBI: 0.65 0.65 Study Comments REFERENCE ?? Ankle / Brachial Indices: Normal= 1-1.3, Mild disease= 0.8-0.99, Moderate blockage =0.4 to 0.79,Severe disease= less than 0.4, Rigid arteries = >1.3 ?? Toe/ Brachial Indices: Normal= >.7, Abnormal= <.69 Physician Conclusions Summary: Right side: Indeterminate GERHARD's secondary to noncompressible vessels. The PVR waveforms exhibit normal amplitude with a visible dichrotic notch. The Toe / Brachial Index is 0.65. Left side: Indeterminate GERHARD's secondary to noncompressible vessels. The PVR waveforms exhibit normal amplitude with a visible dichrotic notch. The Toe / Brachial Index is 0.65. No prior exam * Event Display: VL Ankle/Brachial Indices Authored Date: [id number] * Event Display: VL Arterial Duplex Scan Bilat Authored Date: [id number] Demographics Procedure Information Patient name: ANJEL ANDINO Procedure date: 03/10/2024 1:48 PM Corporate Proc. sub type: Extremities Arteries: Lower Extremities Arterial Duplex, Arterial Gender: Female Duplex Scan Lower Extremity Bilateral. Date of : 1945 Accession No: [id number] Age: 78 year(s) Account No: [id number] Procedure Staff Patient status: Routine Attending Physician: Malou Smith DPM Admit Status: Outpatient Ordering physician: Malou Smith DPM Probe: L9-3 Referring Physician: Malou Smith DPM Technical quality: Adequate visualization Departmental Buyer: Finn LUNSFORD [facility] Interpreting physician: Alexandru Laurent MD Study location: [facility] Procedure consent obtained: Indications No Claudication. LE Arterial Diagram Right Left The diagram is not intended for diagnosis. It is provided for reference only. LE Arterial Duplex Findings Right Location PSV (cm/s) EDV (cm/s) Ratio Plaque Characteristics Wave Description Common Femoral 159 Biphasic Prox PFA 120 Biphasic Prox SFA 140 Biphasic Mid SFA 120 0.86 Biphasic Dist SFA 125 1.04 Biphasic Prox Popliteal 148 1.18 Prox SUPERVISOR ROD PLACING 83.8 0.57 Biphasic Mid SUPERVISOR ROD PLACING 101 1.21 Biphasic Dist SUPERVISOR ROD PLACING 72.2 0.71 Biphasic Prox ATTILA 82.2 0.56 Biphasic Mid ATTILA 80 0.97 Biphasic Dist ATTILA 95.7 1.2 Biphasic Prox Peroneal 32.7 0.39 Biphasic Mid Peroneal 54.1 1.65 Biphasic Left Location PSV (cm/s) EDV (cm/s) Ratio Plaque Characteristics Wave Description Common Femoral 177 Biphasic Prox PFA 147 Biphasic Prox SFA 161 Biphasic Mid SFA 120 0.75 Biphasic Dist SFA 96.9 0.81 Biphasic Prox Popliteal 115 1.19 Prox SUPERVISOR ROD PLACING 120 1.04 Biphasic Mid SUPERVISOR ROD PLACING 124 1.03 Biphasic Dist SUPERVISOR ROD PLACING 133 1.07 Biphasic Prox ATTILA 102 0.89 Biphasic Mid ATTILA 128 1.25 Biphasic Dist ATTILA 156 1.22 Biphasic Prox Peroneal 60.1 0.5 Biphasic Mid Peroneal 54.6 0.91 Biphasic Study Comments REFERENCE- Peripheral Arterial Stenosis: Stenosis is determined by Peak Systolic Velocity >200 cm/second or a ratio of 2:1 relative to the proximal adjacent segment. Ratio > 4:1 suggests > 75 % stenosis, Ratio > 7:1 suggests > 90 % Physician Conclusions Summary: Right side: No duplex evidence of stenosis or occlusion, but heavily calcified lower extremity arteries throughout. Left side: No duplex evidence of stenosis or occlusion, but heavily calcified lower extremity arteries throughout. * Event Display: VL Arterial Duplex Scan Bilat Authored Date: [id number] Patient Care team information Care Team Personnel Name: Cm Magallanes MD Position: [facility] Physician - Primary Care Member Role: PCP Address: Address: [address] [place] [address] [address] [place], [place] [address] Name: Monica Sun RN Position: [facility] FEI Nurse Member Role: Primary Care Nurse Name: Ramsey Herrera RN Position: [facility] RN Member Role: Primary Care Nurse Name: Di Perez RN Position: [facility] RN Member Role: Primary Care Nurse Name: Priti Wagoner RN Position: [facility] RN Member Role: Primary Care Nurse Name: Yaa Alexander NP Position: [facility] PCO Associate Professional Member Role: Primary Care Nurse Address: Address: [address] [place] [address] [place] [address]- Name: Bhavya Ricardo RN Position: [facility] AMB Nurse Member Role: Primary Care Nurse Name: Sarah Augustin RN Position: [facility] RN Member Role: Primary Care Nurse Name: Josie Taylor RN Position: [facility] Onco RN Member Role: Primary Care Nurse Name: Rachel Moreno RN Position: [facility] RN Member Role: Primary Care Nurse Name: Sarah Cash LPN Position: [facility] RN Member Role: Primary Care Nurse Name: Izabela Parikh RN Position: [facility] RN Member Role: Primary Care Nurse Name: Gita Borden LPN Position: [facility] RN Member Role: Primary Care Nurse Name: Annie Lehman RN Position: [facility] RN Member Role: Primary Care Nurse Care Team Related Persons Name: МАРИНА HOBBS Address: home [address] [place] [address]
--- OUTSIDE RECORDS SUMMARY | 2024-05-14 09:44 | XMS_ITS | Continuity of Care Document ---
Author Organization [facility] ter Address [address] [place] [address]- Care Team Providers Care Network Technician Name Role Phone Sona ALVARES, Cm Savage Primary Care Physician [place] [facility] [place]/04/21 - 01/05/[address] [address] Discharge Disposition: A-D/C Home Attending Physician: Walter Cantrell MD Admitting Physician: Walter Cantrell MD Referring Physician: Walter Cantrell MD Allergies, Adverse Reactions, Alerts Substance Reaction [...] 16:00:36 Start Date: 11/01/16 Status: Ordered lisinopril 10 mg oral tablet 30 mg, Tablet, By Mouth, 01/05/21 9:00:00 EDT Start Date: 01/05/21 Stop Date: 01/05/21 Status: Completed lisinopril 30 mg oral tablet 1 tablet = 30 mg, By Mouth, Daily, 0 Refills, Maintenance, 11/01/16 15:58:14 Start Date: 11/01/16 Status: Ordered oxyCODONE 5 mg oral tablet 5 mg, 1, tablet, By Mouth, Every 6 hours, PRN, # 28 tablet, Refills 0, Tot. Refills 0, Acute 01/11/21 15:24:00 EDT, Pain , Moderate, 01/04/21 15:23:00 EDT, Route to Pharmacy Electronically, [facility], Partial fill upon patient request i... Start Date: 01/04/21 Stop Date: 01/11/21 Status: Ordered Paroxetine = 10 mg, By [...] 6:41:01 EDT Start Date: 06/17/18 Status: Ordered Procedures Procedure Date Related Diagnosis Body Site Status Arthrodesis, posterior or po sterolateral technique, single level; lumbar (with lateral transverse technique, when performed) Completed Results Radiology Reports * Exam Date Time Procedure Performing Provider Status 01/04/21 5:48 PM C-Arm < 1 Hour Virgilio Gotti; Ibrahima ( Verified) Notes: (C-Arm < 1 Hour) Reason For Exam: lumbar RESULT: C-Arm < 1 Hour Spine Single View, C-Arm < 1 Hour INDICATION: 75 years years old Female with Reason: lumbar; Special Instructions: TT 40min, FT 3sec. COMPARISONS: MRI lumbar spine without and with IV contrast November 23, 2020.. TECHNIQUE: Fluoroscopy support was provided in the operating room for the referring physician usingthe C-arm. There was no radiologist in attendance. This report is provided for documentation purposes. In addition, a total of one lateral view of the lumbar spine is obtained in the OR with the C-arm. Fluoroscopy time:3 seconds. Technologist time: 40 minutes. FINDINGS: A metallic probe points from a posterior approach to the posterior margin of the L5 vertebral body located between the spinous processes of L4 and L5. IMPRESSION: 1. C-arm study performed in the OR. 2. Localization of L5 in the OR. Thank you for allowing me to participate in the care of this patient. WSN: [id number] Ordering Physician: Walter Cantrell Dictated By: Fish Hensley MD Dictated Date/Time: 01/04/21 8:37 pm Reviewed By: Fish Hensley MD Signed By: Fish Hensley MD Signed Date/Time: 01/04/21 8:37 pm Transcribed By: HUMAIRA Transcribed Date/Time: 01/04/21 8:36 pm * Exam Date Time Procedure Performing Provider Status 01/04/21 5:48 PM Spine Single View Jose Maria Gotti h (Verified) Notes: (Spine Single View) Reason For Exam: lumbar RESULT: Spine Single View Spine Single View, C-Arm < 1 Hour INDICATION: 75 years years old Female with Reason: lumbar; Special Instructions: TT 40min, FT 3sec. COMPARISONS: MRI lumbar spine without and with IV contrast November 23, 2020.. TECHNIQUE: Fluoroscopy support was provided in the operating room for the referring physician usingthe C-arm. There was no radiologist in attendance. This report is provided for documentation purposes. In addition, a total of one lateral view of the lumbar spine is obtained in the OR with the C-arm. Fluoroscopy time:3 seconds. Technologist time: 40 minutes. FINDINGS: A metallic probe points from a posterior approach to the posterior margin of the L5 vertebral body located between the spinous processes of L4 and L5. IMPRESSION: 1. C-arm study performed in the OR. 2. Localization of L5 in the OR. Thank you for allowing me to participate in the care of this patient. WSN: [id number] Ordering Physician: Walter Cantrell Dictated By: Fish Hensley MD Dictated Date/Time: 01/04/21 8:37 pm Reviewed By: Fish Hensley MD Signed By: Fish Hensley MD Signed Date/Time: 01/04/21 8:37 pm Transcribed By: HUMAIRA Transcribed Date/Time: 01/04/21 8:36 pm Vital Signs Most recent to oldest [Reference Range]: 1 2 3 Height 160.02 cm (01/05/21 7:44 AM) 160.02 cm (01/04/21 1:25 PM) 160.02 cm (12/28/20 3:50 PM) Weight 100.00 kg (01/04/21 1:25 PM) 100.00 kg (12/28/20 3:50 PM) Oxygen Saturation [94-100 %] 100 % (01/05/21 7:44 AM) 96 % (01/05/21 3:06 AM) 96 % (01/04/21 11:36 PM) Pulse Rate [55-90 bpm] 81 bpm (01/05/21 7:44 AM) 78 bpm (01/05/21 3:06 AM) 96 bpm *H* (01/04/21 11:36 PM) Body Mass Index [18.5-24.99] 39.05 *>HHI* (01/04/21 1:25 PM) 39.05 *>HHI* (12/28/20 3:50 PM) Blood Pressure [90-138/55-84 mm Hg] 168/66mm Hg *H* (01/05/21 8:24 AM) 168/66mm Hg *H* (01/05/21 7:44 AM) 148/75mm Hg *H* (01/05/21 3:06 AM) Respiratory Rate [16-30 br/min] 18 br/min (01/05/21 7:44 AM) 18 br/min (01/05/21 3:06 AM) 18 br/min (01/04/21 11:36 PM) Temperature [96.8-100.4 DegF] 98.1 DegF (01/05/21 7:44 AM) 97.5 DegF (01/05/21 3:06 AM) 97.4 DegF (01/04/21 11:36 PM) Liters per Minute 4 L/min (01/04/21 6:30 PM) 5 L/min (01/04/21 6:15 PM) 5 L/min (01/04/21 6:00 PM) Mode of Delivery (Oxygen) Room air (01/05/21 7:44 AM) Room air (01/05/21 3:06 AM) Room air (01/04/21 11:36 PM) Blood pressure sites Arm, right (01/05/21 7:44 AM) Arm, left (01/05/21 3:06 AM) Arm, left (01/04/21 11:36 PM) Temperature Route Oral (01/05/21 7:44 AM) Oral (01/05/21 3:06 AM) Oral (01/04/21 11:36 PM) Dry Weight 105.1 kg (01/04/21 1:25 PM) 100.00 kg (12/28/20 3:50 PM) Dry Weight Obtained Via Standing scale (01/04/21 1:25 PM) Patient/family stated (12/28/20 3:50 PM) Social History Social History Type Response Smoking Status Never (less than 100 in lifetime) entered on: 01/04/21 Sex
--- OUTSIDE RECORDS SUMMARY | 2024-05-14 09:44 | XMS_ITS | Continuity of Care Document ---
Author Organization [facility] Address [address] [place], [place] [address]marianna wilcox, [address] [place] [address]- Care Team Providers Care Corporate Quality Assurance Manager Name Role Phone Cm Magallanes MD Primary Care Physician Encounter [facility] [id number] Date(s): 12/19/21 - 12/26/21 [facility] [address] [place] [address] Drive, [address] [place] [address]- Attending Physician: Ivan Herrera MD Referring Physician: Cm Magallanes MD Allergies, [...] 10/03/21 10:11:00 EST, Route to Pharmacy Electronically, [facility], Partial fill upon patient request if the prescription is for a schedule II opioid... Start Date: 10/03/21 Status: Ordered aspirin 81 mg oral delayed release tablet 81 mg, By Mouth, Daily, # 30 tablet, Refills 3, Tot. Refills 3, Maintenance, 10/03/21 8:10:00 EST, Route to Pharmacy Electronically, [facility], Partial fill upon patient request if theprescription is for a schedule II opioid drug., 162... Start Date: 10/03/21 Stop Date: 01/31/22 Status: Ordered atorvastatin 40 mg oral tablet 1 tablet = 40 mg, By Mouth, Daily at bedtime, # 30 tablet, 0 Refills, Maintenance, 10/03/21 8:10:00EST, Tablet, [facility], Partial fill upon patient [...] Maintenance, 10/03/21 8:22:00 EST, Tablet, [facility], Partial fill upon patient request [...] 10/03/21 8:10:00 EST, Route to Pharmacy Electronically, [facility], Partial fill upon patient [...] recent to oldest [Reference Range]: 1 Height 162.6 cm (12/19/21 1:42 PM) Weight 98.4 kg (12/19/21 1:42 PM) Body Mass Index [18.5-24.99] 37.22 *>HHI* (12/19/21 1:42 PM) Social History Social History Type Response Smoking Status Never (less than 100 in lifetime) entered on: 01/04/21 Sex
--- OUTSIDE RECORDS SUMMARY | 2024-05-14 09:45 | XMS_ITS | Continuity of Care Document ---
Author Organization [facility] ter Address [address] [place] [address]- Care Team Providers Care Scullion Chief Name Role Phone Sona ALVARES, Cm Savage Primary Care Physician Encounter [facility] Date(s): 02/13/22 - 02/15/[address] [address]- Encounter Diagnosis Abdominal pain(Final) - 02/12/22 Discharge Disposition: A-D/C Home Attending Physician: Hui Knott MD Admitting Physician: Bismark England DO Referring Physician: Not on Staff, Referring MD [...] 10/03/21 8:10:00 EST, Route to Pharmacy Electronically, [facility], Partial fill upon patient request if theprescription is for a schedule II opioid drug., 162... Start Date: 10/03/21 Stop Date: 01/31/22 Status: Ordered Gabapentin = 100 mg, By Mouth, 2 times a day, 0 Refills, Maintenance, 12/28/20 15:25:00 EDT, Partial fill uponpatient request if the prescription is for a schedule II opioid drug. Start Date: 12/28/20 Status: Ordered gabapentin 100 mg oral capsule 100 mg, Capsule, By Mouth, 02/15/22 9:00:00 EDT Start Date: 02/15/22 Stop Date: 02/15/22 Status: Completed lisinopril 40 mg oral tablet 1 tablet = 40 mg, By Mouth, Daily, # 30 tablet, 0 Refills, Maintenance, 02/12/22 20:22:00 EDT, Tablet, Partial fill upon patient request if the prescription is for a schedule II opioid drug. Start Date: 02/12/22 Status: Ordered ondansetron 4 mg oral tablet, disintegrating 1 tablet = 4 mg, By Mouth, Every 8 hours, PRN as needed for nausea/vomiting, # 15 tablet, 0 Refills, Acute 04/12/22 10:00:00 EDT, 02/15/22 9:22:00 EDT, DIS Tablet, [id number], Partial fill upon patient request if the prescription is for a sche... Start Date: 02/15/22 Stop Date: 04/12/22 Status: Ordered Pepcid AC Maximum Strength 20 mg oral tablet 20 mg, 1, tablet, By Mouth, Daily, # 30 tablet, Refills 0, Maintenance, 06/17/18 6:43:14 EDT Start Date: 06/17/18 Status: Ordered Pyridium 200 mg oral tablet 1 tablet = 200 mg, By Mouth, 2 times a day, for 2 days, # 4 tablet, 0 Refills, Acute 02/17/22 9:20:00 EDT, 02/15/22 9:20:00 EDT, Tablet, [id number], Partial fill upon patient request if the prescription is for a schedule II opioid drug., 163,... Start Date: 02/15/22 Stop Date: 02/17/22 Status: Ordered saccharomyces boulardii lyo 250 mg oral capsule 1 capsule = 250 mg, By Mouth, 2 times a day, for 7 days, # 14 capsule, 0 Refills, Acute 02/22/22 9:18:00 EDT, 02/15/22 9:18:00 EDT, Capsule, [id number], Partial fill upon patient request if the prescription is for a schedule II opioid drug., 1... 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 Hypertension(Confirmed) Active Obese class I(Confirmed) Active Type 2 diabetes mellitus(Confirmed) Active Procedures Procedure Date Related Diagnosis Body Site Status Esophagogastroduodenoscopy 02/13/22 Completed Results Orders for Microbiology Reports Name Date Blood Culture 02/12/22 Blood Culture #2 02/12/22 Urine Culture (URINE CULTURE) 02/12/22 Microbiology Reports TEST:Blood Culture, Second Order STATUS:Unauthenticated BODY SITE: SOURCE:Blood COLLECTED DATE/TIME:02/12/22 9:47 AM Blood Culture, Second Order SPECIMEN DESCRIPTION : BLOOD LHAND SPECIAL REQUESTS : NONE CULTURE : NO GROWTH 3 DAYS REPORT STATUS : PRELIMINARY REPORT TEST:Blood Culture STATUS:Unauthenticated BODY SITE: SOURCE:Blood COLLECTED DATE/TIME:02/12/22 9:45 AM Blood Culture SPECIMEN DESCRIPTION : BLOOD RAC SPECIAL REQUESTS : NONE CULTURE : NO GROWTH 3 DAYS REPORT STATUS : PRELIMINARY REPORT TEST:Urine Culture STATUS:Auth (Verified) BODY SITE: SOURCE:URINE COLLECTED DATE/TIME:02/12/22 7:25 AM Urine Culture SPECIMEN DESCRIPTION : URINE SPECIAL REQUESTS : NONE CULTURE : >100,000 COL/ML STREPTOCOCCUS AGALACTIAE SERO GROUP B SUSCEPTIBILITY TESTING NOT ROUTINELY PERFORMED ON THIS ISOLATE. This isolate was identified using Maldi-TOF system REPORT STATUS : FINAL 02/14/2022 Radiology Reports * Exam Date Time Procedure Performing Provider Status 02/12/22 10:07 AM Chest 2 Views Frontal and Lat Chhaya Ambrosio i; Auth (Verified) Notes: (Chest 2 Views Frontal and Lat) Reason For Exam: Shortness of Breath, Fever;Other: RESULT: Chest 2 Views Frontal and Lat Chest 2 Views Frontal and Lat INDICATION: Recent hospital visit for UTI with lightheadedness and dizziness, presents with worsening symptoms. COMPARISON: 01/30/2022 and 08/28/2007. FINDINGS: LINES AND TUBES: None. LUNGS AND PLEURA: Clear lungs. Normal pulmonary vascularity. No pleural effusion. No pneumothorax. HEART, MEDIASTINUM AND SATNAM: Heart is normal in size. Normal upper mediastinal and hilar contour. BONES AND SOFT TISSUES: Unchanged Bilateral shoulder arthroplasty. Unchanged mild degenerative changes of the spine. IMPRESSION: No acute abnormality. I have personally reviewed the images and I agree with this report. WSN: [id number] Ordering Physician: Sebastian Meng Dictated By: Pedrito Robles MD Dictated Date/Time: 02/12/22 10:46 a Reviewed By: Iza Beckman MD Signed By: Iza Beckman MD Signed Date/Time: 02/12/22 10:51 am Transcribed By: HUMAIRA Transcribed Date/Time: 02/12/22 10:31 am Vital Signs Most recent to oldest [Reference Range]: 1 2 3 Height 163 cm (02/15/22 10:16 AM) 163 cm (02/15/22 8:39 AM) 163 cm (02/15/22 6:26 AM) Weight 90.5 kg (02/13/22 3:02 PM) 90.5 kg (02/13/22 8:22 AM) 90 kg (02/12/22 7:40 PM) Oxygen Saturation [94-100 %] 99 % (02/15/22 10:16 AM) 98 % (02/15/22 8:39 AM) 97 % (02/15/22 6:26 AM) Pulse Rate [55-90 bpm] 101 bpm *H* (02/15/22 10:16 AM) 94 bpm *H* (02/15/22 8:39 AM) 88 bpm (02/15/22 6:26 AM) Body Mass Index [18.5-24.99] 34.06 *>HHI* (02/13/22 3:02 PM) 34.06 *>HHI* (02/13/22 8:22 AM) 33.87 *>HHI* (02/12/22 7:40 PM) Blood Pressure [90-138/55-84 mm Hg] 158/75mm Hg *H* (02/15/22 10:16 AM) 148/65mm Hg *H* (02/15/22 8:39 AM) 144/70mm Hg *H* (02/15/22 6:26 AM) Respiratory Rate [16-30 br/min] 20 br/min (02/15/22 10:16 AM) 18 br/min (02/15/22 9:41 AM) 16 br/min (02/15/22 8:41 AM) Temperature [96.8-100.4 DegF] 98.0 DegF (02/15/22 10:16 AM) 98.7 DegF (02/15/22 8:39 AM) 97.5 DegF (02/15/22 6:26 AM) Mode of Delivery (Oxygen) Room air (02/15/22 10:16 AM) Room air (02/15/22 8:39 AM) Room air (02/15/22 6:26 AM) Blood pressure sites Arm, left (02/15/22 10:16 AM) Arm, left (02/15/22 8:39 AM) Arm, right (02/15/22 6:26 AM) Temperature Route Oral (02/15/22 10:16 AM) Oral (02/15/22 8:39 AM) Oral (02/15/22 6:26 AM) Dry Weight 90.5 kg (02/13/22 8:22 AM) 90 kg (02/12/22 7:40 PM) 90 kg (02/12/22 4:35 PM) Sensory deficits None (02/13/22 8:22 AM) Social History Social History Type Response Smoking Status Never (less than 100 in lifetime) entered on: 01/04/21 Sex
--- OUTSIDE RECORDS SUMMARY | 2024-05-14 09:45 | XMS_ITS | Continuity of Care Document ---
Author Organization [facility] Address [address] [facility], [address] Floor, [address] [place] [address]- Care Team Providers Care Night Worker Name Role Phone Sona ALVARES, mC Savage Primary Care Physician [place] [facility] [place] [facility] [address], [address], [address] [place] [id number] Allergies, Adverse Reactions, Alerts Substance Reaction [...] 10/03/21 8:10:00 EST, Route to Pharmacy Electronically, [facility], Partial fill upon patient request if theprescription is for a schedule II opioid drug., 162... Start Date: 10/03/21 Stop Date: 01/31/22 Status: Ordered atorvastatin 80 mg oral tablet 1 tablet = 80 mg, By Mouth, Daily at bedtime, # 30 tablet, 0 Refills, Maintenance, 02/27/22 10:43:00 EDT, Tablet, [id number], Partial fill upon patient request if the [...] Maintenance, 2 Start Date: 03/29/22 Status: Ordered Pepcid AC Maximum Strength 20 mg oral tablet 20 mg, 1, tablet, By Mouth, Daily, # 30 tablet, Refills 0, Maintenance, 06/17/18 6:43:14 EDT Start Date: 06/17/18 Status: Ordered Plavix 75 mg oral tablet 75 mg, 1, tablet, By Mouth, Daily, # 30 tablet, Refills 0, Tot. Refills 0, Maintenance, 02/27/22 10:43:00 EDT, Route to Pharmacy Electronically, [facility][id number], Partial fill upon patient request if the [...] on: 01/04/21 Sex Patient Care team information Personnel Name: Sona ALVARES, Cm Savage Address: Address: [address] [place] [address] #[facility] [place] [address]
--- OUTSIDE RECORDS SUMMARY | 2024-05-14 09:45 | XMS_ITS | Continuity of Care Document ---
Author Organization [facility] Address [address] [facility], [address]r d Floor, [address] [place] [address]- Care Team Providers Care Wastewater Treatment Plant Chemist Name Role Phone Sona ALVARES, Cm Savage Primary Care Physician Encounter [facility] Date(s): 07/09/22 - 08/08/22 [facility] [address], 3rd Floor, [address] [place] [address]- Allergies, Adverse Reactions, Alerts Substance Reaction Severity [...] 0 Refills, Maintenance, 07/10/22 12:24:00 EST, Tablet, [facility], Partial fill upon patient request if the prescription is for a schedule II opioid drug., 163, cm, 07/10/22 11:42:00... Start Date: 07/10/22 Stop Date: 08/09/22 Status: Ordered aspirin 81 mg oral delayed release tablet 81 mg, By Mouth, Daily, # 30 tablet, Refills 3, Tot. Refills 3, Maintenance, 10/03/21 8:10:00 EST, Route to Pharmacy Electronically, [facility], Partial fill upon patient request if theprescription is for a schedule II opioid drug., 162... Start Date: 10/03/21 Stop Date: 01/31/22 Status: Ordered atorvastatin 80 mg oral tablet 1 tablet = 80 mg, By Mouth, Daily, # 30 tablet, 0 Refills, Maintenance, 07/10/22 12:35:00 EST, Tablet, [facility], Partial fill upon patient request [...] Magallanes MD Position: [facility] Physician (General Medicine) Member Role: PCP Address: Address: [address] [place] [address] #[facility] [address] Name: Ainsley Anderson RN Position: [facility] RN Member Role: Primary Care Nurse Name: Monica Sun RN Position: [facility] RN Member [...] Care Nurse Name: Yaa Alexander RN Position: [facility] RN Member Role: Primary Care Nurse Name: Bhavya Ricardo RN Position: [facility] RN Member Role: Primary Care Nurse Name: Sarah Augustin RN Position: [facility] RN Member Role: Primary Care Nurse Name: Josie Taylor RN Position: [facility] RN Member [...] МАРИНА HOBBS Address: home [address] [place] [address]
--- OUTSIDE RECORDS SUMMARY | 2024-05-14 09:45 | XMS_ITS | Continuity of Care Document ---
Author Organization [facility] Address [address] [facility], 3r d Floor, [address] [place] [address]- Care Team Providers Care Debit Agent Name Role Phone Sona ALVARES, Cm Savage Primary Care Physician Encounter [facility] Date(s): 06/09/22 - 07/09/22 [facility] [address], 3[address], [address] [place] [address]- Allergies, Adverse Reactions, Alerts Substance Reaction Severity [...] tablet = 40 mg, By Mouth, Daily, 0 Refills, Maintenance, 07/08/22 16:36:00 EST, Partial fill uponpatient request if the prescription is for a schedule II opioid drug. Start Date: 07/08/22 Status: Ordered chlorthalidone 25 mg oral tablet 12.5 mg, 0.5, tablet, By Mouth, Daily, # 15 tablet, Refills 0, Maintenance, 07/08/22 16:33:00 EST, Partial fill upon patient request if the prescription is for a schedule II opioid drug. Start Date: 07/08/22 Status: Ordered famotidine 10 mg oral tablet [...] opioid drug. Start Date: 07/08/22 Status: Ordered Plavix 75 mg oral tablet 75 mg, 1, tablet, By Mouth, Daily, # 30 tablet, Refills 0, Tot. Refills 0, Maintenance, 02/27/22 10:43:00 EDT, Route to Pharmacy Electronically, [facility]/pharmacy #[id number], Partial fill upon patient request if the prescription is for a schedule II opioid drug... Start Date: 02/27/22 Status: Ordered PrednisoLONE = 5 mg, By [...] Team Personnel Name: Cm Magallanes MD Position: [facility] Physician (General Medicine) Member Role: PCP Address: Address: [address] [place] [address] #[facility] [address] Name: Ainsley Anderson RN Position: [facility] RN Member Role: Primary Care Nurse Name: Monica Sun RN Position: [facility] RN Member Role: Primary Care Nurse Name: Ginger Jones RN Position: [facility] RN Member Role: Primary Care Nurse Name: Ramsey Herrera RN Position: [facility] RN Member Role: Primary Care Nurse Name: Di Perez RN Position: [facility] RN Member Role: Primary Care Nurse Name: Priti Wagoner RN Position: [facility] RN Member Role: Primary Care Nurse Name: Yaa Alexander RN Position: [facility] RN Member Role: Primary Care Nurse Name: Bhavya Ricardo RN Position: [facility] RN Member Role: Primary Care Nurse Name: Sarah Augustin RN Position: [facility] RN Member Role: Primary Care Nurse Name: Josie Taylor RN Position: [facility] RN Member Role: Primary Care Nurse Name: Rachel Moreno RN Position: [facility] RN Member Role: Primary Care Nurse Name: Sarah Cash LPN Position: S RN Member Role: Primary Care Nurse Name: Izabela Parikh RN Position: [facility] RN Member Role: Primary Care Nurse Name: Gita Borden LPN Position: [facility] RN Member Role: Primary Care Nurse Name: Annie Lehman Position: S RN Member Role: Primary Care Nurse Care Team Related Persons Name: МАРИНА HOBBS Address: home [address] [place] [address]
--- OUTSIDE RECORDS SUMMARY | 2024-05-14 09:45 | XMS_ITS | Continuity of Care Document ---
Author Organization [facility] Address [address] [place] [address]- Care Team Providers Care Edge Kitter Name Role Phone Sona ALVARES, Cm Savage Primary Care Physician Encounter [facility] Date(s): 09/07/22 - 10/07/22 [facility] [address] [place], [place] [address] Allergies, Adverse Reactions, Alerts Substance [...] 0 Refills, Maintenance, 07/10/22 12:24:00 EST, Tablet, [facility], Partial fill upon patient request if the prescription is for a schedule II opioid drug., 163, cm, 07/10/22 11:42:00... Start Date: 07/10/22 Stop Date: 08/09/22 Status: Ordered aspirin 81 mg oral delayed release tablet 81 mg, By Mouth, Daily, # 30 tablet, Refills 3, Tot. Refills 3, Maintenance, 10/03/21 8:10:00 EST, Route to Pharmacy Electronically, [facility], Partial fill upon patient request if theprescription is for a schedule II opioid drug., 162... Start Date: 10/03/21 Stop Date: 01/31/22 Status: Ordered atorvastatin 80 mg oral tablet 1 tablet = 80 mg, By Mouth, Daily, # 30 tablet, 0 Refills, Maintenance, 07/10/22 12:35:00 EST, Tablet, [facility] 3, Partial fill upon patient request [...] Team Personnel Name: Cm Magallanes MD Position: [facility] Physician (General Medicine) Member Role: PCP Address: Address: [address] [place] [address] #[facility] [address] Name: iAnsley Anderson RN Position: S RN Member Role: Primary [...] Care Nurse Name: Yaa Alexander RN Position: S RN Member Role: Primary [...] Persons Name: МАРИНА HOBBS Address: home [address] [facility] [place] [address]
--- OUTSIDE RECORDS SUMMARY | 2024-05-14 09:45 | XMS_ITS | Continuity of Care Document ---
Author Organization [facility] Address [address] [address]- Care Team Providers Care Business Continuity Planner Name Role Phone Sona ALVARES, Cm Savage Primary Care Physician Encounter [facility] Date(s): 03/10/24 - 04/09/24 [facility] [address] [address]- Attending Physician: Kyle Lackey Admitting Physician: Kyle [...] 0 Refills, Maintenance, 07/10/22 12:24:00 EST, Tablet, [facility], Partial fill upon patient request if the prescription is for a schedule II opioid drug., 163, cm, 07/10/22 11:42:00... Start Date: 07/10/22 Stop Date: 08/09/22 Status: Ordered aspirin 81 mg oral delayed release tablet 81 mg, By Mouth, Daily, # 30 tablet, Refills 3, Tot. Refills 3, Maintenance, 10/03/21 8:10:00 EST, Route to Pharmacy Electronically, [facility], Partial fill upon patient request if theprescription is for a schedule II opioid drug., 162... Start Date: 10/03/21 Stop Date: 01/31/22 Status: Ordered atorvastatin 80 mg oral tablet 1 tablet = 80 mg, By Mouth, Daily, # 30 tablet, 0 Refills, Maintenance, 07/10/22 12:35:00 EST, Tablet, [facility] 3, Partial fill upon patient request if [...] Team Personnel Name: Cm Magallanes MD Position: [facility] Physician - Primary Care Member Role: PCP Address: Address: [address] [place] [address]- Name: Monica Sun RN Position: [facility] AMB Nurse Member Role: Primary Care Nurse Name: Ramsey Herrera RN Position: [facility] RN Member Role: Primary Care Nurse Name: Di Perez RN Position: [facility] RN Member Role: Primary Care Nurse Name: Priti Wagoner RN Position: [facility] RN Member Role: Primary Care Nurse Name: Yaa Alexander NP Position: [facility] PCO Associate Professional Member Role: Primary Care Nurse Address: Address: [address] [place] [address] [place] [address]- Name: Bhavya Ricardo RN Position: [facility] AMB Nurse Member Role: Primary Care Nurse Name: Sarah Augustin RN Position: [facility] RN Member Role: Primary Care Nurse Name: Josie Taylor RN Position: [facility] Onco RN Member Role: Primary Care Nurse Name: Rachel Moreno RN Position: [facility] RN Member Role: Primary Care Nurse Name: Sarah Cash LPN Position: S RN Member Role: Primary Care Nurse Name: Izabela Parikh RN Position: [facility] RN Member Role: Primary Care Nurse Name: Gita Borden LPN Position: [facility] RN Member Role: Primary Care Nurse Name: Annie Lehman RN Position: [facility] RN Member Role: Primary Care Nurse Care Team Related Persons Name: МАРИНА HOBBS Address: [place] [address]
--- OUTSIDE RECORDS SUMMARY | 2024-05-14 09:45 | XMS_ITS | Continuity of Care Document ---
Author Organization [facility] Address [address] [place] [address] [address], [address] [place] [address]- Care Team Providers Care Sales And Leasing Consultant Name Role Phone Sona ALVARES, Cm Savage Primary Care Physician ( [phone] Encounter [facility] Date(s): 03/08/22 - 04/07/22 [facility] [address] [place] [address] Drive, [address] [place] [address]- Allergies, Adverse Reactions, Alerts Substance Reaction Severity [...] 10/03/21 8:10:00 EST, Route to Pharmacy Electronically, [facility], Partial fill upon patient request if theprescription is for a schedule II opioid drug., 162... Start Date: 10/03/21 Stop Date: 01/31/22 Status: Ordered atorvastatin 80 mg oral tablet 1 tablet = 80 mg, By Mouth, Daily at bedtime, # 30 tablet, 0 Refills, Maintenance, 02/27/22 10:43:00 EDT, Tablet, [facility]/pharmacy #[id number], Partial fill upon patient request if the [...] 10:00:00 EDT, 02/15/22 9:22:00 EDT, DIS Tablet, [facility]/pharmacy #[id number], Partial fill upon patient request if [...] 02/27/22 10:43:00 EDT, Route to Pharmacy Electronically, [facility]/pharmacy #[id number], Partial fill upon patient request if [...] I(Confirmed) Active Type 2 diabetes mellitus(Confirmed) Active Social History Social History Type Response Smoking Status Never (less than 100 in lifetime) entered on: 01/04/21 Sex
--- OUTSIDE RECORDS SUMMARY | 2024-05-14 09:45 | XMS_ITS | Continuity of Care Document ---
Author Organization [facility] Address [address] [place] [address]- Care Team Providers Care Women'S Ministry Director Name Role Phone Sona ALVARES, Cm Savage Primary Care Physician En[facility] Date(s): 08/09/22 - 09/08/22 [facility] [address] [place], [place] [address] Attending Physician: Kyle Lackey Admitting Physician: [...] 0 Refills, Maintenance, 07/10/22 12:24:00 EST, Tablet, [facility], Partial fill upon patient request if the prescription is for a schedule II opioid drug., 163, cm, 07/10/22 11:42:00... Start Date: 07/10/22 Stop Date: 08/09/22 Status: Ordered aspirin 81 mg oral delayed release tablet 81 mg, By Mouth, Daily, # 30 tablet, Refills 3, Tot. Refills 3, Maintenance, 10/03/21 8:10:00 EST, Route to Pharmacy Electronically, [facility], Partial fill upon patient request if theprescription is for a schedule II opioid drug., 162... Start Date: 10/03/21 Stop Date: 01/31/22 Status: Ordered atorvastatin 80 mg oral tablet 1 tablet = 80 mg, By Mouth, Daily, # 30 tablet, 0 Refills, Maintenance, 07/10/22 12:35:00 EST, Tablet, [facility], Partial fill upon patient request if [...] Team Personnel Name: Cm Magallanes MD Position: [facility] Physician (General Medicine) Member Role: PCP Address: Address: [address] [place] [address] #[facility] [address] Name: Ainsley Anderson RN Position: [facility] RN Member Role: Primary Care Nurse Name: Monica Sun RN Position: [facility] RN Member Role: Primary Care Nurse Name: Ginger Jones RN Position: [facility] RN Member Role: Primary Care Nurse Name: Ramsey Herrera RN Position: S RN Member Role: Primary Care Nurse Name: Di Perez RN Position: S RN Member Role: Primary Care Nurse Name: Priti Wagoner RN Position: [facility] RN Member Role: Primary Care Nurse Name: Yaa Alexander RN Position: [facility] RN Member Role: Primary Care Nurse Name: Bhavya Ricardo RN Position: S RN Member Role: Primary Care Nurse Name: Sarah Augustin RN Position: S RN Member Role: Primary Care Nurse Name: Josie Taylor RN Position: [facility] RN Member Role: Primary Care Nurse [...] Persons Name: МАРИНА HOBBS Address: home [address] [place] [address]
--- OUTSIDE RECORDS SUMMARY | 2024-05-14 09:45 | XMS_ITS | Continuity of Care Document ---
Author Organization [facility] Address [address] [place], [place] [address], [address] [place] [address]- Care Team Providers Care Hearing Aid Mechanic Name Role Phone Sona ALVARES, Cm Savage Primary Care Physician ( [phone] Encounter [facility] [id number] Date(s): 10/08/23 - 10/15/23 [facility] [address] [place] [address] Drive, [address] [place] [address]- Attending Physician: Josette Multani MD Allergies, Adverse Reactions, Alerts Substance Reaction [...] EST, Tablet, [facility], Partial fill upon patient request if [...] oldest [Reference Range]: 1 Height 163 cm (10/08/23 9:32 AM) Weight 95.5 kg (10/08/23 9:32 AM) Body Mass Index [18.5-24.99 kg/m2] 35.94 kg/m2 *>HHI* (10/08/23 9:32 AM) Social History Social History Type Response Smoking Status Never (less than 100 in lifetime) entered on: 01/04/21 Sex Patient Care team information Care Team Personnel Name: Cm Magallanes MD Position: [facility] Physician - Primary Care Member Role: PCP Address: Address: [address] [place] [address] [place] [address] Name: Monica Snu RN Position: [facility] RN Member Role: Primary Care Nurse Name: Ginger Jones RN Position: [facility] RN Member Role: Primary Care Nurse Name: Ramsey Herrera RN Position: [facility] RN Member Role: Primary Care Nurse Name: Di Perez RN Position: [facility] RN Member Role: Primary Care Nurse Name: Priti Wagoner RN Position: [facility] RN Member Role: Primary Care Nurse Name: Yaa Alexander NP Position: [facility] PCO Associate Professional Member Role: Primary Care Nurse Address: Address: [address] [place] [address] [place] [address]- Name: Bhavya Ricardo RN Position: [facility] SN RN Member Role: Primary Care Nurse Name: Sarah Augustin RN Position: [facility] RN Member Role: Primary Care Nurse Name: Josie Taylor RN Position: [facility] Onco RN Member Role: Primary Care Nurse Name: Rachel Moreno RN Position: [facility] RN Member Role: Primary Care Nurse Name: Sarah Cash LPN Position: [facility] RN Member Role: Primary Care Nurse Name: Izabela Parikh RN Position: [facility] RN Member Role: Primary Care Nurse Name: Gita Borden LPN Position: [facility] RN Member Role: Primary Care Nurse Name: Annie Lehman RN Position: [facility] RN Member Role: Primary Care Nurse Care Team Related Persons Name: МАРИНА HOBBS Address: home [address] [place] [address]
--- OUTSIDE RECORDS SUMMARY | 2024-05-14 09:45 | XMS_ITS | Continuity of Care Document ---
Author Organization [facility] Address [address] [place] [address] [address], [address] [place] [address]- Care Team Providers Care Aviation Mechanic Name Role Phone Sona ALVARES, Cm Savage Primary Care Physician Encounter [facility] Date(s): 12/19/21 - 01/18/22 [facility] [address] [place] [address] Drive, [address] [place], [place] [address] Attending Physician: Kyle Lackey Admitting Physician: Kyle [...] 10/03/21 10:11:00 EST, Route to Pharmacy Electronically, [facility], Partial fill upon patient request if the prescription is for a schedule II opioid... Start Date: 10/03/21 Status: Ordered aspirin 81 mg oral delayed release tablet 81 mg, By Mouth, Daily, # 30 tablet, Refills 3, Tot. Refills 3, Maintenance, 10/03/21 8:10:00 EST, Route to Pharmacy Electronically, [facility], Partial fill upon patient request if theprescription is for a schedule II opioid drug., 162... Start Date: 10/03/21 Stop Date: 01/31/22 Status: Ordered atorvastatin 40 mg oral tablet 1 tablet = 40 mg, By Mouth, Daily at bedtime, # 30 tablet, 0 Refills, Maintenance, 10/03/21 8:10:00EST, Tablet, [facility] 3, Partial fill upon patient [...] 0 Refills, Maintenance, 10/03/21 8:22:00 EST, Tablet, [facility] 3, Partial fill upon patient [...] 10/03/21 8:10:00 EST, Route to Pharmacy Electronically, [facility], Partial fill upon patient [...]
--- OUTSIDE RECORDS SUMMARY | 2024-05-14 09:45 | XMS_ITS | Continuity of Care Document ---
Author Organization [facility] Address [address] [place] [address]- Care Team Providers Care Cryptography Teacher Name Role Phone Sona ALVARES, Cm Savage Primary Care Physician ( [phone] [place] [facility] [place]s): 11/12/23 - 03/11/24 [facility] [address] [place], [place] [address] Attending Physician: Concepcion Charles MD Admitting Physician: Concepcion Charles MD Referring Physician: Cm Magallanes MD Allergies, [...] 0 Refills, Maintenance, 07/10/22 12:24:00 EST, Tablet, [facility], Partial fill upon patient request if the prescription is for a schedule II opioid drug., 163, cm, 07/10/22 11:42:00... Start Date: 07/10/22 Stop Date: 08/09/22 Status: Ordered aspirin 81 mg oral delayed release tablet 81 mg, By Mouth, Daily, # 30 tablet, Refills 3, Tot. Refills 3, Maintenance, 10/03/21 8:10:00 EST, Route to Pharmacy Electronically, [facility], Partial fill upon patient request if theprescription is for a schedule II opioid drug., 162... Start Date: 10/03/21 Stop Date: 01/31/22 Status: Ordered atorvastatin 80 mg oral tablet 1 tablet = 80 mg, By Mouth, Daily, # 30 tablet, 0 Refills, Maintenance, 07/10/22 12:35:00 EST, Tablet, [facility], Partial fill upon patient request if [...] Team Personnel Name: Cm Magallanes MD Position: [facility] Physician - Primary Care Member Role: PCP Address: Address: [address] [place] [address]- Name: Monica Sun RN Position: [facility] RN Member Role: Primary Care Nurse Name: Ramsey Herrera RN Position: [facility] RN Member Role: Primary Care Nurse Name: Di Perez RN Position: [facility] RN Member Role: Primary Care Nurse Name: Priti Wagoner RN Position: [facility] RN Member Role: Primary Care Nurse Name: Yaa Alexander NP Position: [facility] PCO Associate Professional Member Role: Primary Care Nurse Address: Address: [address] [place] [address] [place] [address]- Name: Bhavya Ricardo RN Position: [facility] AMB Nurse Member Role: Primary Care Nurse Name: Sarah Augustin RN Position: [facility] RN Member Role: Primary Care Nurse Name: Josie Taylor RN Position: [facility] Onco RN Member Role: Primary Care Nurse Name: Rachel Moreno RN Position: [facility] RN Member Role: Primary Care Nurse Name: Sarah Cash LPN Position: S RN Member Role: Primary Care Nurse Name: Izabela Parikh RN Position: [facility] RN Member Role: Primary Care Nurse Name: Gita Borden LPN Position: [facility] RN Member Role: Primary Care Nurse Name: Annie Lehman RN Position: [facility] RN Member Role: Primary Care Nurse Care Team Related Persons Name: МАРИНА HOBBS Address: [address] [address]
--- OUTSIDE RECORDS SUMMARY | 2024-05-14 09:45 | XMS_ITS | Continuity of Care Document ---
Author Organization [facility] Address [address] [place] [address] jeri, [address] [place] [address]- Care Team Providers Care Guide Cruise Name Role Phone Sona ALVARES, Cm Savage Primary Care Physician [place] [facility] [place] - 07/27/22 [facility] [address] [place] [address] Drive, [address] [place], [place] [address] Allergies, Adverse Reactions, Alerts [...] Refills, Maintenance, 07/10/22 12:24:00 EST, Tablet, [facility], Partial fill upon patient request if the prescription is for a schedule II opioid drug., 163, cm, 07/10/22 11:42:00... Start Date: 07/10/22 Stop Date: 08/09/22 Status: Ordered aspirin 81 mg oral delayed release tablet 81 mg, By Mouth, Daily, # 30 tablet, Refills 3, Tot. Refills 3, Maintenance, 10/03/21 8:10:00 EST, Route to Pharmacy Electronically, [facility], Partial fill upon patient request if theprescription is for a schedule II opioid drug., 162... Start Date: 10/03/21 Stop Date: 01/31/22 Status: Ordered atorvastatin 80 mg oral tablet 1 tablet = 80 mg, By Mouth, Daily, # 30 tablet, 0 Refills, Maintenance, 07/10/22 12:35:00 EST, Tablet, [facility], Partial fill upon patient request if [...] Team Personnel Name: Cm Magallanes MD Position: [facility] Physician (General Medicine) Member Role: PCP Address: Address: [address] [place] [address] [address] [place], [place] [address] [place] [address] Name: Ainsley Anderson RN Position: S RN Member Role: [...] RN Member Role: Primary Care Nurse Name: Gtia Borden LPN Position: S RN Member Role: Primary Care Nurse Name: Annie Lehman Position: S RN Member Role: Primary Care Nurse Care Team Related Persons Name: ALANISYANNIBRITNIМАРИНА Address: home [address] [place] [address]
--- OUTSIDE RECORDS SUMMARY | 2024-05-14 09:45 | XMS_ITS | Continuity of Care Document ---
Author Organization [facility] Address [address] [place] [address] Terrence wilcox, [address] [place] [address]- Care Team Providers Care Programming Coordinator Name Role Phone Cm Magallanes MD [id number] - 09[facility]15/22 [facility] [address] [place] [address] Drive, [address] [place] [address]- Attending Physician: Ivan Herrera MD Referring Physician: [...] 0 Refills, Maintenance, 07/10/22 12:24:00 EST, Tablet, [facility], Partial fill upon patient request if the prescription is for a schedule II opioid drug., 163, cm, 07/10/22 11:42:00... Start Date: 07/10/22 Stop Date: 08/09/22 Status: Ordered aspirin 81 mg oral delayed release tablet 81 mg, By Mouth, Daily, # 30 tablet, Refills 3, Tot. Refills 3, Maintenance, 10/03/21 8:10:00 EST, Route to Pharmacy Electronically, [facility], Partial fill upon patient request if theprescription is for a schedule II opioid drug., 162... Start Date: 10/03/21 Stop Date: 01/31/22 Status: Ordered atorvastatin 80 mg oral tablet 1 tablet = 80 mg, By Mouth, Daily, # 30 tablet, 0 Refills, Maintenance, 07/10/22 12:35:00 EST, Tablet, [facility] 3, Partial fill upon patient request [...] Team Personnel Name: Cm Magallanes MD Position: [facility] Physician (General Medicine) Member Role: PCP Address: Address: [address] [place] [address] #[facility] [address] Name: Ainsley Anderson RN Position: [facility] RN Member Role: Primary Care Nurse Name: Monica Sun RN Position: [facility] RN Member Role: Primary Care Nurse Name: Ginger Jones RN Position: [facility] RN Member Role: Primary Care Nurse Name: Ramsey Herrera RN Position: [facility] RN Member Role: Primary Care Nurse Name: Di Perez RN Position: [facility] RN Member Role: Primary Care Nurse Name: Priti Wagoner RN Position: [facility] RN Member Role: Primary Care Nurse Name: Yaa Alexander RN Position: [facility] RN Member Role: Primary Care Nurse Name: Bhavya Ricardo RN Position: [facility] RN Member Role: Primary Care Nurse Name: Sarah Augustin RN Position: [facility] RN Member Role: Primary Care Nurse Name: Josie Taylor RN Position: [facility] RN Member Role: Primary Care Nurse Name: Rachel Moreno RN Position: [facility] RN Member Role: Primary Care Nurse Name: Sarah Cash LPN Position: S RN Member Role: Primary Care Nurse Name: Izabela Parikh RN Position: [facility] RN Member Role: Primary Care Nurse Name: Gita Borden LPN Position: [facility] RN Member Role: Primary Care Nurse Name: Annie Lehman Position: S RN Member Role: Primary Care Nurse Care Team Related Persons Name: МАРИНА HOBBS Address: home [address] [place] [address]
--- OUTSIDE RECORDS SUMMARY | 2024-05-14 09:45 | XMS_ITS | Continuity of Care Document ---
Author Organization [facility] Address [address] [place] [address]- Care Team Providers Care Cylinder Inspector Name Role Phone Sona ALVARES, Cm Savage Primary Care Physician En[place] [facility] [place](s[place] 03/17/24 - 04/16/24 [facility] [address] [address]- Attending Physician: Kyle Lackey Admitting Physician: Kyle [...] 0 Refills, Maintenance, 07/10/22 12:24:00 EST, Tablet, [facility], Partial fill upon patient request if the prescription is for a schedule II opioid drug., 163, cm, 07/10/22 11:42:00... Start Date: 07/10/22 Stop Date: 08/09/22 Status: Ordered aspirin 81 mg oral delayed release tablet 81 mg, By Mouth, Daily, # 30 tablet, Refills 3, Tot. Refills 3, Maintenance, 10/03/21 8:10:00 EST, Route to Pharmacy Electronically, [facility], Partial fill upon patient request if theprescription is for a schedule II opioid drug., 162... Start Date: 10/03/21 Stop Date: 01/31/22 Status: Ordered atorvastatin 80 mg oral tablet 1 tablet = 80 mg, By Mouth, Daily, # 30 tablet, 0 Refills, Maintenance, 07/10/22 12:35:00 EST, Tablet, [facility], Partial fill upon patient [...] Team Personnel Name: Cm Magallanes MD Position: [facility] Physician - Primary Care Member Role: PCP Address: Address: [address] [place] [address]- Name: Monica Sun RN Position: [facility] Nurse Member Role: Primary Care Nurse Name: Ramsey Herrera RN Position: [facility] RN Member Role: Primary Care Nurse Name: Di Perez RN Position: [facility] RN Member Role: Primary Care Nurse Name: Priti Wagoner RN Position: [facility] RN Member Role: Primary Care Nurse Name: Yaa Alexander NP Position: [facility] PCO Associate Professional Member Role: Primary Care Nurse Address: Address: [address] [place] [address] [facility] [place] [address]- Name: Bhavya Ricardo RN Position: [facility] AMB Nurse Member Role: Primary Care Nurse Name: Sarah Augustin RN Position: [facility] RN Member Role: Primary Care Nurse Name: Josie Taylor RN Position: [facility] Onco RN Member Role: Primary Care Nurse Name: Rachel Moreno RN Position: [facility] RN Member Role: Primary Care Nurse Name: Sarah Cash LPN Position: S RN Member Role: Primary Care Nurse Name: Izabela Parikh RN Position: [facility] RN Member Role: Primary Care Nurse Name: Gita Borden LPN Position: [facility] RN Member Role: Primary Care Nurse Name: Annie Lehman RN Position: [facility] RN Member Role: Primary Care Nurse Care Team Related Persons Name: МАРИНА HOBBS Address: [address] [address]
--- OUTSIDE RECORDS SUMMARY | 2024-05-14 09:45 | XMS_ITS | Continuity of Care Document ---
Author Organization [facility] Address [address] [place] [address]- Care Team Providers Care Supervisor Fish Processing Name Role Phone Sona ALVARES, Cm Savage Primary Care Physician [place] [facility] [place] - 02/02/24 [facility] [address] [address]- Attending Physician: Kyle Lackey Admitting Physician: Kyle [...] 0 Refills, Maintenance, 07/10/22 12:24:00 EST, Tablet, [facility], Partial fill upon patient request if the prescription is for a schedule II opioid drug., 163, cm, 07/10/22 11:42:00... Start Date: 07/10/22 Stop Date: 08/09/22 Status: Ordered aspirin 81 mg oral delayed release tablet 81 mg, By Mouth, Daily, # 30 tablet, Refills 3, Tot. Refills 3, Maintenance, 10/03/21 8:10:00 EST, Route to Pharmacy Electronically, [facility], Partial fill upon patient request if theprescription is for a schedule II opioid drug., 162... Start Date: 10/03/21 Stop Date: 01/31/22 Status: Ordered atorvastatin 80 mg oral tablet 1 tablet = 80 mg, By Mouth, Daily, # 30 tablet, 0 Refills, Maintenance, 07/10/22 12:35:00 EST, Tablet, [facility], Partial fill upon patient [...] Personnel Name: Cm Magallanes MD Position: [facility] Physician - Primary Care Member Role: PCP Address: Address: [address] [place] [address]- Name: Monica Sun RN Position: [facility] RN Member Role: Primary Care Nurse Name: Ramsey Herrera RN Position: [facility] RN Member Role: Primary Care Nurse Name: Di Perez RN Position: [facility] RN Member Role: Primary Care Nurse Name: Priti Wagoner RN Position: [facility] RN Member Role: Primary Care Nurse Name: Yaa Alexander NP Position: [facility] PCO Associate Professional Member Role: Primary Care Nurse Address: Address: [address] [place] [address] [place] [address]- Name: Bhavya Ricardo RN Position: [facility] AMB Nurse Member Role: Primary Care Nurse Name: Sarah Augustin RN Position: [facility] RN Member Role: Primary Care Nurse Name: Josie Taylor RN Position: [facility] Onco RN Member Role: Primary Care Nurse Name: Rachel Moreno RN Position: [facility] RN Member Role: Primary Care Nurse Name: Sarah Cash LPN Position: S RN Member Role: Primary Care Nurse Name: Izabela Parikh RN Position: [facility] RN Member Role: Primary Care Nurse Name: Gita Borden LPN Position: [facility] RN Member Role: Primary Care Nurse Name: Annie Lehman RN Position: [facility] RN Member Role: Primary Care Nurse Care Team Related Persons Name: МАРИНА HOBBS Address: [address] [address]
--- OUTSIDE RECORDS SUMMARY | 2024-05-14 09:45 | XMS_ITS | Continuity of Care Document ---
Author Organization [facility] Address [address] [place] [address]- Care Team Providers Care Pie Filler Name Role Phone Sona ALVARES, Cm Savage Primary Care Physician En[place] [facility] [place] Date(s): 07/30/22 - 08/06/22 [facility] [address] [place], [place] [address] Allergies, Adverse Reactions, Alerts Substance Reaction [...] 0 Refills, Maintenance, 07/10/22 12:24:00 EST, Tablet, [facility], Partial fill upon patient request if the prescription is for a schedule II opioid drug., 163, cm, 07/10/22 11:42:00... Start Date: 07/10/22 Stop Date: 08/09/22 Status: Ordered aspirin 81 mg oral delayed release tablet 81 mg, By Mouth, Daily, # 30 tablet, Refills 3, Tot. Refills 3, Maintenance, 10/03/21 8:10:00 EST, Route to Pharmacy Electronically, [facility], Partial fill upon patient request if theprescription is for a schedule II opioid drug., 162... Start Date: 10/03/21 Stop Date: 01/31/22 Status: Ordered atorvastatin 80 mg oral tablet 1 tablet = 80 mg, By Mouth, Daily, # 30 tablet, 0 Refills, Maintenance, 07/10/22 12:35:00 EST, Tablet, [facility], Partial fill upon patient [...] oldest [Reference Range]: 1 Height 163 cm (07/30/22 11:13 AM) Weight 94 kg (07/30/22 11:13 AM) Oxygen Saturation [94-100 %] 97 % (07/30/22 11:13 AM) Pulse Rate [55-90 bpm] 119 bpm *H* (07/30/22 11:13 AM) Body Mass Index [18.5-24.99 kg/m2] 35.38 kg/m2 *>HHI* (07/30/22 11:13 AM) Blood Pressure [90-138/55-84 mm Hg] 154/ 60mm Hg *H* (07/30/22 11:13 AM) Mode of Delivery (Oxygen) Room air (07/30/22 11:13 AM) Blood pressure sites Arm, left (07/30/22 11:13 AM) Weight Obtained Via Patient/family state d (07/30/22 11:13 AM) Social History Social History Type Response Smoking Status Never (less than 100 in lifetime) entered on: 01/04/21 Sex Note * Neelima Pennington [place]: PERFORM, SIGN, VERIFY Event Display: Patient Education/Instruction Authored Date: [id number] [facility] [address] Clinical Summary Name SINA HOBBS Age 77 Years 1945 PCP Sona ALVARES, Cm Savage PCP Visit Date 07/30/2022 11:05:00 Additional Instructions: Scheduled Appointments?? Future Appointments ?*[facility],??[place],??[address] ?Phone:??--?Fax:??-- ?Appt. Date:??08/09/2022?8:45 AM ?Scheduled Provider:??Gabino LUCIANO , Brit Cevallos ?*[facility] [address] ?[place],??[place],??[address] ?Phone:??--?Fax:??-- ?Appt. Date:??08/28/2022?9:30 AM ?Scheduled Provider:??Ivan Herrera MD ?*[facility] [address] ?[place],??[place],??[address] ?Phone:??--?Fax:??-- ?Appt. Date:??09/12/2022?3:30 PM ?Scheduled Provider:??Maria A ALVARES, Madeline Follow-Up Instructions ?? Diagnosis Medications: Please continue your medications until [...] orders Vital Signs Height 163 cm Weight 94 kg BMI 35.38 kg/m2 Blood Pressure 154 mm Hg/60 mm Hg Temperature Pulse Rate 119 bpm Respiratory Rate 02 Sat Mode of Delivery 97 %/Room air You can now view a summary of your hospital visit from the comfort of your home through a free online portal called [employer]. [employer] is a website that allows you to securely view your medical information including discharge summary, medications and follow-up visits. ??You can alsosend a secure electronic message to your doctor???s office to request appointments, renew medications or just ask a question. You can enroll at [email or web address] or register during your next office visit. [...] care provider, you may find a [facility] provider by calling [facility] at [phone]. For information about the plan of care [...] Team Personnel Name: Cm Magallanes MD Position: [facility] Physician (General Medicine) Member Role: PCP Address: Address: [address] [place] [address] [address] [place] [address]- Name: Ainsley Anderson RN Position: [facility] RN Member Role: Primary Care Nurse Name: Monica Sun RN Position: [facility] RN Member Role: Primary Care Nurse Name: Ginger Jones RN Position: [facility] RN Member Role: Primary Care Nurse Name: Ramsey Herrera RN Position: [facility] RN Member Role: Primary Care Nurse Name: Di Perez RN Position: [facility] RN Member Role: Primary Care Nurse Name: Priti Wagoner RN Position: [facility] RN Member Role: Primary Care Nurse Name: Yaa Alexander RN Position: [facility] RN Member Role: Primary Care Nurse Name: Bhavya Ricardo RN Position: [facility] RN Member Role: Primary Care Nurse Name: Sarah Augustin RN Position: [facility] RN Member Role: Primary Care Nurse Name: Josie Taylor RN Position: [facility] RN Member Role: Primary Care Nurse Name: Rachel Moreno RN Position: [facility] RN Member Role: Primary Care Nurse Name: Sarah Cash LPN Position: [facility] RN Member Role: Primary Care Nurse Name: Izabela Parikh RN Position: [facility] RN Member Role: Primary Care Nurse Name: Gita Borden LPN Position: [facility] RN Member Role: Primary Care Nurse Name: Annie Lehman Position: [facility] RN Member Role: Primary Care Nurse Care Team Related Persons Name: МАРИНА HOBBS Address: home [address] [place] [address]
--- OUTSIDE RECORDS SUMMARY | 2024-05-14 09:45 | XMS_ITS | Continuity of Care Document ---
Author Organization [facility] Address [address] [facility], [address] d Floor, [address] [place] [address]- Care Team Providers Care General Utility Machine Operator Name Role Phone Sona ALVARES, Cm Savage Primary Care Physician Encounter [facility] [place] Date(s): 05/02/22 - 06/01/22 [facility] [address], [address] Floor, [address] [place] [id number] Allergies, Adverse Reactions, Alerts Substance Reaction Severity [...] 10/03/21 8:10:00 EST, Route to Pharmacy Electronically, [facility], Partial fill upon patient request if theprescription is for a schedule II opioid drug., 162... Start Date: 10/03/21 Stop Date: 01/31/22 Status: Ordered atorvastatin 80 mg oral tablet 1 tablet = 80 mg, By Mouth, Daily at bedtime, # 30 tablet, 0 Refills, Maintenance, 02/27/22 10:43:00 EDT, Tablet, [id number], Partial fill upon patient request if the [...] 02/27/22 10:43:00 EDT, Route to Pharmacy Electronically, [facility][id number], Partial fill upon patient request if the [...] Name: Sona ALVARES, Cm Savage Address: Address: [address] [place] [address] #[facility] [address]
--- OUTSIDE RECORDS SUMMARY | 2024-05-14 09:45 | XMS_ITS | Continuity of Care Document ---
Author Organization [facility] Address [address] [place] [address]- Care Team Providers Care Lbd Teacher Name Role Phone Sona ALVARES, Cm Savage Primary Care Physician ( [phone] Encounter [facility] Date(s): 10/01/21 - 10/03/[address] [address]- Discharge Disposition: A-D/C Home Attending Physician: Neymar Verma MD Admitting Physician: Mahnaz Saravia MD Referring [...] 10/03/21 10:11:00 EST, Route to Pharmacy Electronically, [facility], Partial fill upon patient request if the prescription is for a schedule II opioid... Start Date: 10/03/21 Status: Ordered aspirin 81 mg oral delayed release tablet 81 mg, By Mouth, Daily, # 30 tablet, Refills 3, Tot. Refills 3, Maintenance, 10/03/21 8:10:00 EST, Route to Pharmacy Electronically, [facility], Partial fill upon patient request if theprescription is for a schedule II opioid drug., 162... Start Date: 10/03/21 Stop Date: 01/31/22 Status: Ordered atorvastatin 40 mg oral tablet 1 tablet = 40 mg, By Mouth, Daily at bedtime, # 30 tablet, 0 Refills, Maintenance, 10/03/21 8:10:00EST, Tablet, [facility], Partial fill upon patient [...] oral capsule 100 mg, Capsule, By Mouth, 10/03/21 9:00:00 EST Start Date: 10/03/21 Stop Date: 10/03/21 Status: Completed metFORMIN 500 mg oral tablet 1 tablet = 500 mg, By Mouth, 2 times a day, # 60 tablet, 0 Refills, Maintenance, 10/03/21 8:22:00 EST, Tablet, [facility], Partial fill upon patient [...] 10/03/21 8:10:00 EST, Route to Pharmacy Electronically, [facility], Partial fill upon patient [...] Inform ant Obese class II(Confirmed) Active Results Orders for Microbiology Reports Name Date Urine Culture (URINE CULTURE) 10/01/21 Microbiology Reports TEST:Urine Culture STATUS:Auth (Verified) BODY SITE: SOURCE:URINE COLLECTED DATE/TIME:10/01/21 11:12 AM Urine Culture SPECIMEN DESCRIPTION : URINE SPECIAL REQUESTS : NONE CULTURE : Mixed bacterial michelle, indicative of urogenital contamination. REPORT STATUS : FINAL 10/02/2021 Vital Signs Most recent to oldest [Reference Range]: 1 2 3 Oxygen Saturation [94-100 %] 95 % (10/03/21 3:00 AM) 97 % (10/03/21 12:00 AM) 98 % (10/02/21 11:00 PM) Pulse Rate [55-90 bpm] 107 bpm *H* (10/01/21 3:49 PM) 110 bpm *H* (10/01/21 3:16 PM) 95 bpm *H* (10/01/21 1:56 PM) Blood Pressure [90-138/55-84 mm Hg] 132/68mm Hg (10/03/21 8:00 AM) 139/59mm Hg *H* (10/03/21 3:00 AM) 151/62mm Hg *H* (10/02/21 11:00 PM) Respiratory Rate [16-30 br/min] 16 br/min (10/03/21 10:06 AM) 16 br/min (10/03/21 9:06 AM) 19 br/min (10/03/21 3:00 AM) Temperature [96.8-100.4 DegF] 98.3 DegF (10/03/21 12:00 PM) 98.4 DegF (10/03/21 8:00 AM) 96.5 DegF *L* (10/03/21 3:00 AM) Mode of Delivery (Oxygen) Room air (10/03/21 3:00 AM) Room air (10/02/21 11:00 PM) Room air (10/02/21 7:00 PM) Blood pressure sites Arm, right (10/03/21 8:00 AM) Arm, left (10/01/21 5:00 PM) Arm, left (10/01/21 1:56 PM) Temperature Route Temporal (10/03/21 12:00 PM) Temporal (10/03/21 8:00 AM) Temporal (10/03/21 3:00 AM) Social History Social History Type Response Smoking Status Never (less than 100 in lifetime) entered on: 01/04/21 Sex
--- OUTSIDE RECORDS SUMMARY | 2024-05-14 09:45 | XMS_ITS | Continuity of Care Document ---
Author Organization [facility] Address [address] [facility], [address] d Floor, [address] [place] [address]- Care Team Providers Care Sifter And Miller Name Role Phone Sona ALVARES, Cm Savage Primary Care Physician Encounter [facility] [place] Date(s): 06/22/22 - 07/22/22 [facility] [address], 3rd Floor, [address] [place] [address]- Allergies, Adverse Reactions, Alerts Substance Reaction Severity [...] 0 Refills, Maintenance, 07/10/22 12:24:00 EST, Tablet, [facility], Partial fill upon patient request if the prescription is for a schedule II opioid drug., 163, cm, 07/10/22 11:42:00... Start Date: 07/10/22 Stop Date: 08/09/22 Status: Ordered aspirin 81 mg oral delayed release tablet 81 mg, By Mouth, Daily, # 30 tablet, Refills 3, Tot. Refills 3, Maintenance, 10/03/21 8:10:00 EST, Route to Pharmacy Electronically, [facility], Partial fill upon patient request if theprescription is for a schedule II opioid drug., 162... Start Date: 10/03/21 Stop Date: 01/31/22 Status: Ordered atorvastatin 80 mg oral tablet 1 tablet = 80 mg, By Mouth, Daily, # 30 tablet, 0 Refills, Maintenance, 07/10/22 12:35:00 EST, Tablet, [facility], Partial fill upon patient request [...] Team Personnel Name: Cm Magallanes MD Position: [facility] Physician (General Medicine) Member Role: PCP Address: Address: [address] [place] [address] #[facility] Sandra Samantha [address] Name: Ainsley Anderson RN Position: [facility] RN Member Role: Primary Care Nurse Name: Monica Sun RN Position: [facility] RN Member Role: Primary Care Nurse Name: Ginger Jones RN Position: [facility] RN Member Role: Primary Care Nurse Name: Ramsey Herrera RN Position: [facility] RN Member Role: Primary Care Nurse Name: Di Perez RN Position: [facility] RN Member Role: Primary Care Nurse Name: Priti Wagoner RN Position: S RN Member Role: Primary Care Nurse Name: Yaa Alexander RN Position: [facility] RN Member Role: Primary Care Nurse Name: Bhavya Ricardo RN Position: [facility] RN Member Role: Primary Care Nurse Name: Sarah Augustin RN Position: [facility] RN Member Role: Primary Care Nurse Name: Josie Taylor RN Position: [facility] RN Member Role: Primary Care Nurse Name: Rachel Moreno RN Position: [facility] RN Member Role: Primary Care [...] МАРИНА HOBBS Address: home [address] [place] [address]
--- OUTSIDE RECORDS SUMMARY | 2024-05-14 09:45 | XMS_ITS | Continuity of Care Document ---
Author Organization [facility] Address [address] [place] [address]- Care Team Providers Care Chemist Helper Name Role Phone Sona ALVARES, Cm Savage Primary Care Physician [place] [facility] [place] - 11/07/[address] [address] Discharge Disposition: A-D/C Home Attending Physician: Neymar Verma MD Admitting Physician: Neymar Verma MD Referring Physician: Neymar Verma MD Allergies, Adverse Reactions, Alerts Substance Reaction [...] EST, Route to Pharmacy Electronically, [facility], Partial fill upon patient request if the prescription is for a schedule II opioid... Start Date: 10/03/21 Status: Ordered aspirin 81 mg oral delayed release tablet 81 mg, By Mouth, Daily, # 30 tablet, Refills 3, Tot. Refills 3, Maintenance, 10/03/21 8:10:00 EST, Route to Pharmacy Electronically, [facility], Partial fill upon patient request if theprescription is for a schedule II opioid drug., 162... Start Date: 10/03/21 Stop Date: 01/31/22 Status: Ordered atorvastatin 40 mg oral tablet 1 tablet = 40 mg, By Mouth, Daily at bedtime, # 30 tablet, 0 Refills, Maintenance, 10/03/21 8:10:00EST, Tablet, [facility], Partial fill upon patient [...] 0 Refills, Maintenance, 10/03/21 8:22:00 EST, Tablet, [facility], Partial fill upon patient request [...] EST, Route to Pharmacy Electronically, [facility], Partial fill upon patient [...]
--- OUTSIDE RECORDS SUMMARY | 2024-05-14 09:45 | XMS_ITS | Continuity of Care Document ---
Author Organization [facility] Address [address] [facility], 3r d Floor, [address] [place] [address]- Care Team Providers Care Visual Training Aide Name Role Phone Sona ALVARES, Cm Savage Primary Care Physician ( [phone] Encounter [facility] [place] Date(s): 09/12/22 - 10/12/22 [facility] [address], [address], [address] [place], [place] [address] Attending Physician: Kyle Lackey Admitting Physician: [...] 0 Refills, Maintenance, 07/10/22 12:24:00 EST, Tablet, [facility], Partial fill upon patient request if the prescription is for a schedule II opioid drug., 163, cm, 07/10/22 11:42:00... Start Date: 07/10/22 Stop Date: 08/09/22 Status: Ordered aspirin 81 mg oral delayed release tablet 81 mg, By Mouth, Daily, # 30 tablet, Refills 3, Tot. Refills 3, Maintenance, 10/03/21 8:10:00 EST, Route to Pharmacy Electronically, [facility], Partial fill upon patient request if theprescription is for a schedule II opioid drug., 162... Start Date: 10/03/21 Stop Date: 01/31/22 Status: Ordered atorvastatin 80 mg oral tablet 1 tablet = 80 mg, By Mouth, Daily, # 30 tablet, 0 Refills, Maintenance, 07/10/22 12:35:00 EST, Tablet, [facility], Partial fill upon patient [...] Team Personnel Name: Cm Magallanes MD Position: [facility] Physician (General Medicine) Member Role: PCP Address: Address: [address] [place] [address] Name: Monica Sun RN Position: [facility] RN Member Role: Primary Care Nurse Name: Ginger Jones RN Position: S RN Member Role: Primary Care Nurse Name: Ramsey Herrera RN Position: [facility] RN Member Role: Primary Care Nurse Name: Di Perez RN Position: [facility] RN Member Role: Primary Care Nurse Name: Priti Wagoner RN Position: S RN Member Role: Primary Care Nurse Name: Yaa Alexander RN Position: [facility] RN Member Role: Primary Care Nurse Name: Bhavya Ricardo RN Position: [facility] RN Member Role: Primary Care [...] Persons Name: МАРИНА HOBBS Address: home [address] [place] [address]
--- OUTSIDE RECORDS SUMMARY | 2024-05-14 09:45 | XMS_ITS | Continuity of Care Document ---
Author Organization [facility] Address [address] [place] [address]- Care Team Providers Care Glass Bender Name Role Phone Sona ALVARES, Cm Savage Primary Care Physician [place] [facility] [place] - 08/25/[address] [address]- Discharge Disposition: A-D/C Home Attending Physician: Rogelio [...] 6:41:01 EDT Start Date: 06/17/18 Status: Ordered Problem List Condition Effective Dates Status Health Status Inform ant Obese class II(Confirmed) Active Vital Signs Most recent to oldest [Reference Range]: 1 2 3 Height 162.6 cm (08/25/21 6:51 AM) Weight 99.8 kg (08/25/21 6:51 AM) Oxygen Saturation [94-100 %] 99 % (08/25/21 8:21 AM) 97 % (08/25/21 8:13 AM) 97 % (08/25/21 6:51 AM) Pulse Rate [55-90 bpm] 122 bpm *H* (08/25/21 6:51 AM) Body Mass Index [18.5-24.99] 37.75 *>HHI* (08/25/21 6:51 AM) Blood Pressure [90-138/55-84 mm Hg] 183/97mm Hg *H* (08/25/21 8:21 AM) 185/97mm Hg *H* (08/25/21 8:13 AM) 188/100mm Hg *H* (08/25/21 6:51 AM) Respiratory Rate [16-30 br/min] 18 br/min (08/25/21 8:13 AM) 18 br/min (08/25/21 6:51 AM) Mode of Delivery (Oxygen) Room air (08/25/21 8:21 AM) Room air (08/25/21 8:13 AM) Room air (08/25/21 6:51 AM) Blood pressure sites Arm, left (08/25/21 8:21 AM) Arm, left (08/25/21 8:13 AM) Arm, left (08/25/21 6:51 AM) Temperature Route Temporal (08/25/21 6:51 AM) Social History Social History Type Response Smoking Status Never (less than 100 in lifetime) entered on: 01/04/21 Sex
--- OUTSIDE RECORDS SUMMARY | 2024-05-14 09:45 | XMS_ITS | Continuity of Care Document ---
Author Organization [facility] Address [address] [facility], [address]r d Floor, [address] [place] [id number]- Care Team Providers Care Superintendent Stevedoring Name Role Phone Sona ALVARES, Cm Savage Primary Care Physician Encounter [facility] [place] Date(s): 03/12/22 - 04/11/22 [facility] [address], [address], [address] [place] [address]- [place] Allergies, Adverse Reactions, Alerts Substance Reaction Severity [...] 0 Refills, Maintenance, 02/27/22 10:43:00 EDT, Tablet, [facility][id number], Partial fill upon patient request if the [...] 10:00:00 EDT, 02/15/22 9:22:00 EDT, DIS Tablet, [facility]/pharmacy #[id number], Partial fill upon patient request [...] 02/27/22 10:43:00 EDT, Route to Pharmacy Electronically, [facility]/pharmacy #[id number], Partial fill upon patient request [...]
--- OUTSIDE RECORDS SUMMARY | 2024-05-14 09:45 | XMS_ITS | Continuity of Care Document ---
Author Organization [facility] Address [address] [place] [address]- Care Team Providers Care Jockey Agent Name Role Phone Sona ALVARES, Cm Savage Primary Care Physician ( [phone] Encounter [facility] [place] Date(s): 07/25/22 - 08/24/22 [facility] [address] [place], [place] [address] Allergies, Adverse Reactions, Alerts Substance [...] 0 Refills, Maintenance, 07/10/22 12:24:00 EST, Tablet, [facility], Partial fill upon patient request if the prescription is for a schedule II opioid drug., 163, cm, 07/10/22 11:42:00... Start Date: 07/10/22 Stop Date: 08/09/22 Status: Ordered aspirin 81 mg oral delayed release tablet 81 mg, By Mouth, Daily, # 30 tablet, Refills 3, Tot. Refills 3, Maintenance, 10/03/21 8:10:00 EST, Route to Pharmacy Electronically, [facility], Partial fill upon patient request if theprescription is for a schedule II opioid drug., 162... Start Date: 10/03/21 Stop Date: 01/31/22 Status: Ordered atorvastatin 80 mg oral tablet 1 tablet = 80 mg, By Mouth, Daily, # 30 tablet, 0 Refills, Maintenance, 07/10/22 12:35:00 EST, Tablet, [facility], Partial fill upon [...] Team Personnel Name: Cm Magallanes MD Position: [facility] Physician (General Medicine) Member Role: PCP Address: Address: [address] [place] [address] [address] [place], [place] [address] [address] Name: Ainsley Anderson RN Position: [facility] RN Member Role: Primary Care Nurse [...] Care Nurse Name: Yaa Alexander RN Position: [facility] RN Member Role: Primary Care Nurse [...] Persons Name: МАРИНА HOBBS Address: home [address] [place] [address]
--- OUTSIDE RECORDS SUMMARY | 2024-05-14 09:46 | XMS_ITS ---
Author Organization [facility] Address [address] [address] [place] [address] Care Team Providers Care Arterial Embalmer Name Role Phone Cm Magallanes Primary Care Provider Unavail able SARAH ADHIKARI Unavailable [phone] ALLERGIES Allergen (clinical drug ingredient) Drug/Non Drug Allergy documented on EMR Reaction Allergy Type Onset Date Status Glucophage Unknown Drug Allergy Active simvastatin Zocor Unknown Drug Allergy Activ e REASON FOR VISIT Throbbing pain with the Lt foot great toe MEDICATIONS Medication SIG (Take, Route, Frequency, Duration) Notes Start Date End Date Status hydroCHLOROthiazide 25 MG 1 tablet in th e morning Orally Once a day Not-Taking Escitalopram Oxalate 5 MG 1 tablet Orall y Once a day Not-Taking Lisinopril 10 MG 1 tablet Orally Once a day Not-Taking amLODIPine Besylate 5 MG 1 tablet Orally Once a day Not-Taking Remeron 15 MG 1 tablet at bedtime Orally Once a day Not-Taking PARoxetine HCl 10 MG 1 tablet in the morning Orally Once a day Not-Taking metFORMIN HCl 500 MG 1 tablet with a meal Orally Once a day Not-Taking Aspirin 81 81 MG 1 tablet Orally Once a day Not-Taking Famotidine 20 MG 1 tablet at bedtime as needed Orally Once a day Active predniSONE 10 MG four tablets day 1, 2, 3 three tablets day 4,5,6 two tablets day 7,8,9 one tablet day 10,11,12 Orally Once a day for 12 day(s) 10/12/2021 Not-Taking Lipitor 40 MG 1 tablet Orally Once a day Active Tresiba 100 UNIT/ML as directed Subcutaneous 34units Active Acetaminophen 500 MG 1 tablet as needed Orally every 4 hrs Active Clopidogrel Bisulfate 75 MG 1 tablet Orally Once a day Not-Taking Gabapentin 300 MG 1 capsule Orally Once a day Active dilTIAZem HCl ER Coated Beads 180 MG 1 capsule Orally Once a day Active Mirtazapine 45 MG 1 tablet at bedtime Orally Once a day Active Eliquis 5 MG 1 tablet Orally Twice a day Active Alirocumab 75 MG/ML as directed Subcutaneous every 14 days Active Chlorthalidone 25 MG 1 tablet in the morning with food Orally Active Fluticasone Propionate 50 MCG/ACT 1 spray in each nostril Nasally Once a day Active Latanoprost 0.005 % 1 drop into affected eye in the evening Ophthalmic Once a day Active VITAL SIGNS Weight 201.5 lbs 01/01/2024 Height 5ft 5in in 01/01/2024 BMI 33.53 kg/m2 01/01/2024 Heart Rate 94 /min 01/01/2024 Temperature 96.7 degrees Fahrenheit 01/01/20 24 Respiratory Rate 20 /min 01/01/2024 Encounters Encounter Location Date Provider Diagnosis [facility] [address] [facility] [address] [place] [address] 01/01/2024 SARAH ONOFRE Pain of left great t oe M79.675 and Extremity atherosclerosis with resting pain I70.229 ASSESSMENTS Encounter Date Diagnosis Assessment Notes Treatment Notes Treatment Clinical Notes 01/01/2024 Pain of left great toe (ICD-10 - M79.675) This is an outpatient visit for evaluation and management of an established patient, which required appropriate review of pertinent medical history, review of any previous imaging, review of all previous records, and examination and decision-making. Time was 30 minutes spent in review of all these facets including face to face discussion with the patient regarding my findings and in discussion of a current and future treatment plan. Three weightbearing radiographs of the left foot were taken in the office today and reviewed. No acute bony changes present. There is increased calcific vessle disease seen in the digital vessels, especially around the left hallux. Her left great toe pain is only when she is in bed. She has no discomfort during the day. This is suspicious for arterial vs neurological issue. She has had extensive neurological work up and follows with pain management for her spine. She has not had any arterial work up in her extremities. I have ordered a bilateral lower extremity arterial duplex along with ABIs and TBIs to be done. I discussed symptoms to watch out for if arterial perfusion worsens. She already follows with vascular at [facility] for her carotids, I will try to get these studies done over there. 01/01/2024 Extremity atherosclerosis with resting pain (ICD-10 - I70.229) PLAN OF TREATMENT Treatment Notes Assessment Notes Pain of left great toe This is an outpatient visit for evaluation and management of an established patient, which required appropriate review of pertinent medical history, review of any previous imaging, review of all previous records, and examination and decision-making. Time was 30 minutes spent in review of all these facets including face to face discussion with the patient regarding my findings and in discussion of a current and future treatment plan. Three weightbearing radiographs of the left foot were taken in the office today and reviewed. No acute bony changes present. There is increased calcific vessle disease seen in the digital vessels, especially around the left hallux. Her left great toe pain is only when she is in bed. She has no discomfort during the day. This is suspicious for arterial vs neurological issue. She has had extensive neurological work up and follows with pain management for her spine. She has not had any arterial work up in her extremities. I have ordered a bilateral lower extremity arterial duplex along with ABIs and TBIs to be done. I discussed symptoms to watch out for if arterial perfusion worsens. She already follows with vascular at [facility] for her carotids, I will try to get these studies done over there. Pending Test Test Name Order Date GERHARD 01/01/2024 Ultrasound : Artery Doppler Low Ext Bila t 01/01/2024 X ray : Foot, left 3v 01/01/2024 Progress Notes * Starr BRAXTON MDOB:1944 (78 yo F)Acc No.[id number]:01/01/2024 Progress Note Patient:??Starr BRAXTON Provider:??Sarah Remy DPM :1945?Age:78 Y?Sex:Fe male Date:01/01/2024 Phone: Address: [address], [facility] [id number] Pcp:Cm Magallanes Subjective: * Chief Complaints: * ?Throbbing pain with th e Lt foot great toe * HPI: ?Constitutional:? Ms. Braxton presents for a follow up visit. She is here with her . She has been having significant pain to her left great toe for the past few months. The pain is throbbing in nature and it only happens when she is in bed at night. It wakes her up out of her sleep. She finds that the throbbing does go away. She has no painful symptoms during the day. She has not noticed any discoloration or swelling to the left great toe itself. She does admit that she thinks she gets swelling in her left foot off and on. She does have some increased dry skin and scabbing to the tip of the left great toe. 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 She states she is scheduled for a spine injection in a few weeks. She has not had any increased weakness in the left lower extremity. 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 She will be needing surgery in the future for this. She has never had any arterial studies to her lower extremities. * ROS:?General/Constitutional:?Denies??Chills.??Denies??Fatigue.??Denies??Fever.??Denies??Headache. ?Endocrine:?Denies??Excessive sweating.??Denies??Excessive thirst.??Denies??Frequent urination.?Respiratory:?Denies??Cough.??Denies??Shortness of breath,??denies.??Denies??Wheezing.?Musculoskeletal:?Patient complaining of??Left great toe pain at night only.??Admits??Arthritis/Arthralgia.??Admits??Back problems.??Denies??Leg cramps.??Denies??Limping gait.?Skin:?Denies??Masses.??Denies??Nail changes.??Denies??Skin lesion(s).? * Medical History:?? * Surgical History:??Lumbar sp ine surgery x3 Right and left Total knee arthroplasties Right and left total shoulder replacements 4th lumbar spine surgery 09/2022 * Hospitalization/Major Diagno stic Procedure:??[facility]: [facility] ack surgery 09/2022 * Family History:?? denies any family history for inflammatory arthropathies or inflammatory bowel disease. * Social History:?Never smoker No alcohol use. * Medications:??TakingLatanopr ost 0.005 % Solution 1 drop into affected eye in the evening Ophthalmic Once a day Fluticasone Propionate 50 MCG/ACT Suspension 1 spray in each nostril Nasally Once a day dilTIAZem HCl ER Coated Beads 180 MG Capsule Extended Release 24 Hour 1 capsule Orally Once a day Chlorthalidone 25 MG Tablet 1 tablet in the morning with food Orally Eliquis 5 MG Tablet 1 tablet Orally Twice a day Alirocumab 75 MG/ML Solution Auto-injector as directed Subcutaneous , Notes to Pharmacist: every 14 daysMirtazapine 45 MG Tablet 1 tablet at bedtime Orally Once a day Gabapentin 300 MG Capsule 1 capsule Orally Once a day Acetaminophen 500 MG Tablet 1 tablet as needed Orally every 4 hrs Lipitor 40 MG Tablet 1 tablet Orally Once a day Tresiba 100 UNIT/ML Solution as directed Subcutaneous , Notes to Pharmacist: 34unitsFamotidine 20 MG Tablet 1 tablet at bedtime as needed Orally Once a day Taking Latanoprost 0.005 % Solution 1 drop into affected eye in the evening Ophthalmic Once a day Taking Fluticasone Propionate 50 MCG/ACT Suspension 1 spray in each nostril Nasally Once a day Taking dilTIAZem HCl ER Coated Beads 180 MG Capsule Extended Release 24 Hour 1 capsule Orally Once a day Taking Chlorthalidone 25 MG Tablet 1 tablet in the morning with food Orally Taking Eliquis 5 MG Tablet 1 tablet Orally Twice a day Taking Alirocumab 75 MG/ML Solution Auto-injector as directed Subcutaneous , Notes to Pharmacist: every 14 daysTaking Mirtazapine 45 MG Tablet 1 tablet at bedtime Orally Once a day Taking Gabapentin 300 MG Capsule 1 capsule Orally Once a day Taking Acetaminophen 500 MG Tablet 1 tablet as needed Orally every 4 hrs Taking Lipitor 40 MG Tablet 1 tablet Orally Once a day Taking Tresiba 100 UNIT/ML Solution as directed Subcutaneous , Notes to Pharmacist: 34unitsTaking Famotidine 20 MG Tablet 1 tablet at bedtime as needed Orally Once a day Not-TakingClopidogrel Bisulfate 75 MG Tablet 1 tablet Orally Once a day PARoxetine HCl 10 MG Tablet 1 tablet in the morning Orally Once a day predniSONE 10 MG Tablet four tablets day 1, 2, 3 three tablets day 4,5,6 two tablets day 7,8,9 one tablet day 10,11,12 Orally Once a day metFORMIN HCl 500 MG Tablet 1 tablet with a meal Orally Once a day Aspirin 81 81 MG Tablet Chewable 1 tablet Orally Once a day amLODIPine Besylate 5 MG Tablet 1 tablet Orally Once a day Remeron 15 MG Tablet 1 tablet at bedtime Orally Once a day Escitalopram Oxalate 5 MG Tablet 1 tablet Orally Once a day Lisinopril 10 MG Tablet 1 tablet Orally Once a day hydroCHLOROthiazide 25 MG Tablet 1 tablet in the morning Orally Once a day Medication List reviewed and reconciled with the patientNot- Taking Clopidogrel Bisulfate 75 MG Tablet 1 tablet Orally Once a day Not-Taking PARoxetine HCl 10 MG Tablet 1 tablet in the morning Orally Once a day Not-Taking predniSONE 10 MG Tablet four tablets day 1, 2, 3 three tablets day 4,5,6 two tablets day 7,8,9 one tablet day 10,11,12 Orally Once a day Not-Taking metFORMIN HCl 500 MG Tablet 1 tablet with a meal Orally Once a day Not-Taking Aspirin 81 81 MG Tablet Chewable 1 tablet Orally Once a day Not-Taking amLODIPine Besylate 5 MG Tablet 1 tablet Orally Once a day Not-Taking Remeron 15 MG Tablet 1 tablet at bedtime Orally Once a day Not- Taking Escitalopram Oxalate 5 MG Tablet 1 tablet Orally Once a day Not-Taking Lisinopril 10 MG Tablet 1 tablet Orally Once a day Not-Taking hydroCHLOROthiazide 25 MG Tablet 1 tablet in the morning Orally Once a day Medication List reviewed and reconciled with the patient * Allergies:??ZocorGlucophagen o[Allergies Verified] Objective: * Vitals:??Wt: 201.5 lbs, Ht: 5ft 5in, BMI: 33.53 Index, HR: 94 /min, Temp: 96.7 F, RR: 20 /min, Ht-cm: 165.1, Wt-k.4 kg. * Examination: ?General Examination: ?This is an elderly female. Alert and oriented today and in no acute distress. Patient comes in ambulating in sandals without using any assistive devices. Breathing is regular and unlabored while sitting. Affect is pleasant and cooperative. No unusual anxiety or depression noted. Hearing intact to spoken word. No evidence of visual impairment that would impact self care or ambulation. Patient has palpable dorsalis pedis and posterior tibial pulse bilaterally. I also dopplered her DP and PT today the right were strongly biphasic. The left DP is monophasic and the PT is also monophasic. There is nonpitting edema to the dorsum of the left foot extending to the lower leg. All the toes have xerotic skin changes bilaterally. The tip of the left hallux has small dark scabs present. All toes are warm to touch. There is no pain with pressure to the left hallux IPJ or MPJ. There is no pain with range of motion of the left hallux MPJ or IPJ. No pain with pressure over the left hallux nail plate. No erythema or ecchymosis around the left hallux. Dermal atrophy present to both lower extremities. There is mild hypertrophy to the posterior aspect of the heel bilaterally at the level of the Achilles insertion. No pain with pressure to this area. No pain with pressure around the Achilles bilaterally. Lesser hammertoes bilaterally. Bilateral hallux valgus with rigidus. Assessment: * Assessment: 1.??Pain of left great toe - M79.675 (Primary)??2.??Extremity atherosclerosis with resting pain - I70.229?? Plan: * Treatment: ?Imaging: Ultrasound : Artery Doppler Low Ext Bilat* SARAH ADHIKAIR 01/01/2024 12 :23:40 PM EDT > nocturnal pain in left great toe. Diffuse atherosclerosis. b/l lower extremity arterial duplex with ABIs and TBIs. ?Imaging: X ray : Foot, left 3v Notes: This is an outpatient visit for evaluation and management of an established patient, which required appropriate review of pertinent medical history, review of any previous imaging, review of all previous records, and examination and decision-making. Time was 30 minutes spent in review of allthese facets including face to face discussion with the patient regarding my findings and in discussion of a current and future treatment plan. Three weightbearing radiographs of the left foot were taken in the office today and reviewed. No acute bony changes present. There is increased calcific vessle disease seen in the digital vessels, especially around the left hallux. Her left great toe pain is only when she is in bed. She has no discomfort during the day. This is suspicious for arterial vs neurological issue. She has had extensive n eurological work up and follows with pain management for her spine. She has not had any arterial work up in her extremities. I have ordered a bilateral lower extremity arterial duplex along with ABIsand TBIs to be done. I discussed symptoms to watch out for if arterial perfusion worsens. She already follows with vascular at [facility] for her carotids, I will try to get these studies done over there. ?2.??Extremity atherosclerosis with resting pain?Imaging: GERHARD* SARAH ADHIKARI 01/01/2024 12 :23:40 PM EDT > nocturnal pain in left great toe. Diffuse atherosclerosis. b/l lower extremity arterial duplex with ABIs and TBIs. ?Imaging: Ultrasound : Artery Doppler Low Ext Bilat* SARAH ADHIKARI 01/01/2024 12 :23:40 PM EDT > nocturnal pain in left great toe. Diffuse atherosclerosis. b/l lower extremity arterial duplex with ABIs and TBIs. * Procedures:?LEFT FOOT RADIOGRAPHS 01/01/2024 compared to 07/31/2023 3 weight bearing views (AP, LAT, LO PROJECTION/MO VIEW) Taken in the office and read by the physician. Osseous demineralization noted bilaterally. There is narrowing at the 1st metatarsal phalangeal joint with sclerosis and hypertrophy of the sesamoids.There are small erosions to the medial aspect of the 1st metatarsal head. There is calcific changes present at the medial and lateral aspect of the left 1st MPJ suggestive of atherosclerosis. Severe degenerative changes with narrowing at the tarsometatarsal joints. DIPJ and PIPJ narrowing and cystic changes bilaterally to all lesser toes. Sclerosis of the subtalar joint. Small posterior and plantar calcaneal ethesophytes present. There are no acute fractures or dislocations. No abnormal bone lesions or tumors. No soft tissue emphysema. Diffuse atherosclerosis present. ? * Procedure Codes:??11120 X-RA Y EXAM OF FOOT 3 Views, Modifiers: LT * Billing Information: * Visit Code:?? 35406 Office Visit, Est Pt., Level 3. * Procedure Codes:?? 41582 X-RAY EXAM OF FOOT 3 Views. Modifiers: LT * Sign off status: Completed true * Provider:??Sarah Remy DPM Date:??
--- OUTSIDE RECORDS SUMMARY | 2024-05-14 09:46 | XMS_ITS | Continuity of Care Document ---
Author Organization [facility] Address [address] [place], [place] [address]marianna [address], [address] [place] [address]- Care Team Providers Care Coagulator Name Role Phone Sona ALVARES, Cm Savage Primary Care Physician Encounter [facility] Date(s): 09/30/23 - 10/30/23 [facility] [address] [place] [address] Drive, [address] [place] [address]- Allergies, Adverse Reactions, Alerts Substance Reaction Severity [...] 0 Refills, Maintenance, 07/10/22 12:24:00 EST, Tablet, [facility], Partial fill upon patient request if the prescription is for a schedule II opioid drug., 163, cm, 07/10/22 11:42:00... Start Date: 07/10/22 Stop Date: 08/09/22 Status: Ordered aspirin 81 mg oral delayed release tablet 81 mg, By Mouth, Daily, # 30 tablet, Refills 3, Tot. Refills 3, Maintenance, 10/03/21 8:10:00 EST, Route to Pharmacy Electronically, [facility], Partial fill upon patient request if theprescription is for a schedule II opioid drug., 162... Start Date: 10/03/21 Stop Date: 01/31/22 Status: Ordered atorvastatin 80 mg oral tablet 1 tablet = 80 mg, By Mouth, Daily, # 30 tablet, 0 Refills, Maintenance, 07/10/22 12:35:00 EST, Tablet, [facility], Partial fill upon patient request if [...] Team Personnel Name: Cm Magallanes MD Position: [facility] Physician - Primary Care Member Role: PCP Address: Address: [address] [place] [address]- Name: Monica Sun RN Position: [facility] RN Member Role: Primary Care Nurse Name: Ginger Jones RN Position: [facility] RN Member Role: Primary Care Nurse Name: Ramsey Herrera RN Position: [facility] RN Member Role: Primary Care Nurse Name: Di Perez RN Position: [facility] RN Member Role: Primary Care Nurse Name: Priti Wagoner RN Position: [facility] RN Member Role: Primary Care Nurse Name: Yaa Alexander NP Position: [facility] PCO Associate Professional Member Role: Primary Care Nurse Address: Address: [address] [place] [address] [place] [address]- Name: Bhavya Ricardo RN Position: [facility] RN Member Role: Primary Care Nurse Name: Sarah Augustin RN Position: [facility] RN Member Role: Primary Care Nurse Name: Josie Taylor RN Position: [facility] Onco RN Member Role: Primary Care Nurse Name: Rachel Moreno RN Position: [facility] RN Member Role: Primary Care Nurse Name: Sarah Cash LPN Position: [facility] RN Member Role: Primary Care Nurse Name: Izabela Parikh RN Position: [facility] RN Member Role: Primary Care Nurse Name: Gita Borden LPN Position: [facility] RN Member Role: Primary Care Nurse Name: Annie Lehman RN Position: [facility] RN Member Role: Primary Care Nurse Care Team Related Persons Name: МАРИНА HOBBS Address: [address] [address]
--- OUTSIDE RECORDS SUMMARY | 2024-05-14 09:46 | XMS_ITS | Continuity of Care Document ---
Author Organization [facility] Address [address] [place] [address] [address], [address] [place] [address]- Care Team Providers Care Chief Scientist Name Role Phone Sona ALVARES, Cm Savage Primary Care Physician Encounter [facility] Date(s): 11/11/23 - 12/11/23 [facility] [address] [place] [address] Drive [address] [place], [place] [address] Allergies, Adverse Reactions, Alerts Substance [...] 0 Refills, Maintenance, 07/10/22 12:24:00 EST, Tablet, [facility], Partial fill upon patient request if the prescription is for a schedule II opioid drug., 163, cm, 07/10/22 11:42:00... Start Date: 07/10/22 Stop Date: 08/09/22 Status: Ordered aspirin 81 mg oral delayed release tablet 81 mg, By Mouth, Daily, # 30 tablet, Refills 3, Tot. Refills 3, Maintenance, 10/03/21 8:10:00 EST, Route to Pharmacy Electronically, [facility], Partial fill upon patient request if theprescription is for a schedule II opioid drug., 162... Start Date: 10/03/21 Stop Date: 01/31/22 Status: Ordered atorvastatin 80 mg oral tablet 1 tablet = 80 mg, By Mouth, Daily, # 30 tablet, 0 Refills, Maintenance, 07/10/22 12:35:00 EST, Tablet, [facility], Partial fill upon patient request if the prescription is for a schedule II opioid drug., 163, cm, 07/10/22 11:42:00 EST, H... Start Date: 07/10/22 Status: Ordered Diltiazem 0 Refills, Maintenance, 10/08/23 9:47:00 EST, Partial fill upon patient request if the prescriptionis for a schedule II opioid drug. Start Date: 10/08/23 Status: Ordered Gabapentin By Mouth, 0 Refills, [...] Team Personnel Name: Cm Magallanes MD Position: [facility] Physician - Primary Care Member Role: PCP Address: Address: [address] [place] [address] [address] [place] [address]- Name: Monica Sun RN Position: S RN Member Role: Primary Care Nurse Name: Ginger Jones RN Position: S RN Member Role: Primary Care Nurse Name: Ramsey Herrera RN Position: [facility] RN Member Role: Primary Care Nurse Name: Di Perez RN Position: [facility] RN Member Role: Primary Care Nurse Name: Priti Wagoner RN Position: S RN Member Role: Primary Care Nurse Name: Yaa Alexander NP Position: [facility] PCO Associate Professional Member Role: Primary Care Nurse Address: Address: [address] [place] [address]- Name: Bhavya Ricardo RN Position: [facility] AMB Nurse Member Role: Primary Care Nurse Name: Sarah Augustin RN Position: [facility] RN Member Role: Primary Care Nurse Name: Josie Taylor RN Position: [facility] Onco RN Member Role: Primary Care Nurse Name: Rachel Moreno RN Position: [facility] RN Member Role: Primary Care Nurse Name: Sarah Cash LPN Position: S RN Member Role: Primary Care Nurse Name: Izabela Parikh RN Position: [facility] RN Member Role: Primary Care Nurse Name: Gita Borden LPN Position: S RN Member Role: Primary Care Nurse Name: Annie Lehman RN Position: [facility] RN Member Role: Primary Care Nurse Care Team Related Persons Name: МАРИНА HOBBS Address: home [address] [place] [address]
--- OUTSIDE RECORDS SUMMARY | 2024-05-14 09:46 | XMS_ITS | Continuity of Care Document ---
Author Organization [facility] Address [address] [place] [address]- Care Team Providers Care Environmental Sustainability Manager Name Role Phone Sona ALVARES, Cm Savage Primary Care Physician Encounter [facility] [place] Date(s): 10/03/22 - 11/02/[address] [address] Attending Physician: Kyle Lackey Admitting Physician: [...] 0 Refills, Maintenance, 07/10/22 12:24:00 EST, Tablet, [facility], Partial fill upon patient request if the prescription is for a schedule II opioid drug., 163, cm, 07/10/22 11:42:00... Start Date: 07/10/22 Stop Date: 08/09/22 Status: Ordered aspirin 81 mg oral delayed release tablet 81 mg, By Mouth, Daily, # 30 tablet, Refills 3, Tot. Refills 3, Maintenance, 10/03/21 8:10:00 EST, Route to Pharmacy Electronically, [facility], Partial fill upon patient request if theprescription is for a schedule II opioid drug., 162... Start Date: 10/03/21 Stop Date: 01/31/22 Status: Ordered atorvastatin 80 mg oral tablet 1 tablet = 80 mg, By Mouth, Daily, # 30 tablet, 0 Refills, Maintenance, 07/10/22 12:35:00 EST, Tablet, [facility], Partial fill upon patient request [...] (General Medicine) Member Role: PCP Address: Address: [address] [place] [address] [place], [place] [address] [address]- Name: Monica Sun RN Position: S RN [...] Care Nurse Name: Yaa Alexander RN Position: [facility] RN Member Role: Primary Care [...] Care Nurse Name: Annie Lehman RN Position: S RN Member Role: Primary Care Nurse Care Team Related Persons Name: ALANISМАРИНА AGUIRRE Address: home [address] [place] [address]
--- OUTSIDE RECORDS SUMMARY | 2024-05-14 09:46 | XMS_ITS | Continuity of Care Document ---
Author Organization [facility] Address [address] [facility], [address] Floor, [address] [place] [address]- Care Team Providers Care Emergency Room Doctor Name Role Phone Sona ALVARES, Cm Savage Primary Care Physician Encounter [facility] [place] [place] Date(s): 05/16/22 - 06/15/22 [facility] [address], [address] Floor, [address] [place] [address] Attending Physician: Kyle Lackey Admitting Physician: AdmtrKyle Referring Physician: Admtr, Ar8 Allergies, Adverse Reactions, Alerts Substance Reaction Severity [...] Route to Pharmacy Electronically, [facility], Partial fill upon patient request if theprescription is for a schedule II opioid drug., 162... Start Date: 10/03/21 Stop Date: 01/31/22 Status: Ordered atorvastatin 80 mg oral tablet 1 tablet = 80 mg, By Mouth, Daily at bedtime, # 30 tablet, 0 Refills, Maintenance, 02/27/22 10:43:00 EDT, Tablet, [facility][id number], Partial fill upon patient request if the [...] 02/27/22 10:43:00 EDT, Route to Pharmacy Electronically, [facility]/pharmacy #[id number], Partial fill upon patient request if the [...] Name: Sona ALVARES, Cm Savage Address: Address: [address] [place] [address] #[facility] Manju [address]
--- OUTSIDE RECORDS SUMMARY | 2024-05-14 09:46 | XMS_ITS ---
Author Organization [facility] Address [address] [facility] [address] [place] [address] Care Team Providers Care Mechanism Assembler Name Role Phone Cm Magallanes Primary Care Provider Unavail able SARAH ADHIKARI Unavailable [phone] ALLERGIES Allergen (clinical drug ingredient) Drug/Non Drug Allergy documented on EMR Reaction Allergy Type Onset Date Status Glucophage Unknown Drug Allergy Active simvastatin Zocor Unknown Drug Allergy Activ e REASON FOR VISIT follow up left 3rd toe pain MEDICATIONS Medication SIG (Take, Route, Frequency, Duration) Notes Start Date End Date Status Remeron 15 MG 1 tablet at bedtime Orally Once a day Not-Taking amLODIPine Besylate 5 MG 1 tablet Orally Once a day Not-Taking Aspirin 81 81 MG 1 tablet Orally Once a day Not-Taking Lisinopril 10 MG 1 tablet Orally Once a day Not-Taking Escitalopram Oxalate 5 MG 1 tablet Orall y Once a day Not-Taking metFORMIN HCl 500 MG 1 tablet with a meal Orally Once a day Not-Taking Clopidogrel Bisulfate 75 MG 1 tablet Ora lly Once a day Active Tresiba 100 UNIT/ML as directed Subcutaneous 35units Active Lipitor 10 MG 1 tablet Orally Once a day Active predniSONE 10 MG four tablets day 1, 2, 3 three tablets day 4,5,6 two tablets day 7,8,9 one tablet day 10,11,12 Orally Once a day for 12 day(s) 10/12/2021 Not-Taking Mirtazapine 45 MG 1 tablet at bedtime Orally Once a day Active PARoxetine HCl 10 MG 1 tablet in the morning Orally Once a day Not-Taking Acetaminophen 325 MG 1 tablet as needed Orally every 4 hrs Active Famotidine 20 MG 1 tablet at bedtime as needed Orally Once a day Not-Taking Gabapentin 100 MG 1 capsule Orally Once a day 400MG Active hydroCHLOROthiazide 25 MG 1 tablet in e morning Orally Once a day Not-Taking PROBLEMS Problem Type ICD Code Onset Dates Problem Status W/U Status Risk SNOMED Code Notes Problem 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 734098121 VITAL SIGNS Weight 202.8 lbs 09/30/2023 Height 5ft 5in in 09/30/2023 BMI 33.74 kg/m2 09/30/2023 Heart Rate 106 /min 09/30/2023 Temperature 96.8 degrees Fahrenheit 09/30/19 24 Respiratory Rate 16 /min 09/30/2023 Encounters Encounter Location Date Provider Diagnosis [facility] [address] [place] [address] 09/30/2023 SARAH ADHIKARI Dactylitis due to spondyloarthritic disorder M46.90 and Pain in toe of left foot M79.675 ASSESSMENTS Encounter Date Diagnosis Assessment Notes Treatment Notes Treatment Clinical Notes 09/30/2023 Dactylitis due to spondyloarthritic disorder (ICD-10 - M46.90) Patient examined and evaluated. Past medical history reviewed. She presents for a 3-4 week follow up after being on a prednisone taper for inflammation in her left 3rd toe that appeared to be dactylitis. This has since improved. She has severe degenerative changes throughout her body including spinal issues that cause radiculopathy symptoms. Her past labs show an elevated alkaline phosphatase, mildly elevated serum calcium, and mildly elevated GGTP. I did check RA factor, REYNALDO, iron studies, PTH, CCP, ESR, and CRP which were all normal range. She may have an underlying seronegative spondyloarthropathy or an endocrinopathy of some kind. The elevated alk phos and GGTP are suggestive of liver pathology over bone, but perhaps she could also have something granulomatous like sarcoid. I encouraged she follow back with her neurosurgeon for her spine pain and radiculopathy. If she has another flare of dactylitis in the future, a rheumatology referral will be made. She and her expressed understanding. She will follow back as needed. 09/30/2023 Pain in toe of left foot (ICD-10 - M79.675) PLAN OF TREATMENT Treatment Notes Assessment Notes Dactylitis due to spondyloarthritic diso rder Patient examined and evaluated. Past medical history reviewed. She presents for a 3-4 week follow up after being on a prednisone taper for inflammation in her left 3rd toe that appeared to be dactylitis. This has since improved. She has severe degenerative changes throughout her body including spinal issues that cause radiculopathy symptoms. Her past labs show an elevated alkaline phosphatase, mildly elevated serum calcium, and mildly elevated GGTP. I did check RA factor, REYNALDO, iron studies, PTH, CCP, ESR, and CRP which were all normal range. She may have an underlying seronegative spondyloarthropathy or an endocrinopathy of some kind. The elevated alk phos and GGTP are suggestive of liver pathology over bone, but perhaps she could also have something granulomatous like sarcoid. I encouraged she follow back with her neurosurgeon for her spine pain and radiculopathy. If she has another flare of dactylitis in the future, a rheumatology referral will be made. She and her expressed understanding. She will follow back as needed. Progress Notes * Starr BRAXTON MDOB:1944 (78 yo F)Acc No.[id number]:09/30/2023 Progress Notes Patient:??Starr BRAXTON Provider:??Sarah Remy DPM :1945?Age:78 Y?Sex:Fe male Date:09/30/2023 Phone: Address:[address] [place] [address] [phone] Pcp:Cm Magallanes Subjective: * Chief Complaints: * ?Follow up left 3rd toe pain * HPI: ?Constitutional:? Ms. Braxton presents for a follow up. She is here with her . She had a flare of pain to her left 3rd toe back in August while I was out of the office. The toe was swollen and red. She had no injuries or open areas to the toe. She states it just suddenly started. She was given a prednisone taper by my colleague. She states that this definitely helped bring down the swelling, pain, and redness. [facility] and is now back to follow up. She states that the toe still has some slight swelling, but no pain associated with it. She still continues with nocturnal pain in both heels at night even with increasing her gabapentin. She has yet to see her neurosurgeon. She does admit that she continues to deal with chronic lower back pain with radiating sciatic symptoms on the left. She had her fourth lumbar surgery this past September 2022. She thinks they fused L5. She states that she has not noticed much relief and thinks her symptoms may be getting worse. She does have instances of left lower extremity weakness, but denies any tripping or falls. She admits that she also gets burning radiating in the lateral lower leg and thigh. She also has instances of leg cramping and toe spasms more so on the left than the right. * ROS:?General/Constitutional:?Denies??Chills.??Denies??Fatigue.??Denies??Fever.??Denies??Headache. ?Endocrine:?Denies??Excessive sweating.??Denies??Excessive thirst.??Denies??Frequent urination.?Respiratory:?Denies??Cough.??Denies??Shortness of breath,??denies.??Denies??Wheezing.?Musculoskeletal:?Patient complaining of??pain to the right and left heel. Pain to the left 3rd toe at night.??Admits??Arthritis/Arthralgia.??Admits??Back problems.??Denies??Leg cramps.??Denies??Limping gait.?Skin:?Denies??Masses.??Denies??Nail changes.??Denies??Skin lesion(s).? * Medical History:?? * Surgical History:??Lumbar sp ine surgery x3 Right and left Total knee arthroplasties Right and left total shoulder replacements 4th lumbar spine surgery 09/2022 * Hospitalization/Major Diagno stic Procedure:??[facility]: [facility] ack surgery 09/2022 * Family History:?? denies any family history for inflammatory arthropathies or inflammatory bowel disease. * Social History:?Never smoker No alcohol use. * Medications:??TakingMirtazap ine 45 MG Tablet 1 tablet at bedtime Orally Once a day Gabapentin 100 MG Capsule 1 capsule Orally Once a day , Notes to Pharmacist: 400MGAcetaminophen 325 MG Tablet 1 tablet as needed Orally every 4 hrs Clopidogrel Bisulfate 75 MG Tablet 1 tablet Orally Once a day Lipitor 10 MG Tablet 1 tablet Orally Once a day Tresiba 100 UNIT/ML Solution as directed Subcutaneous , Notes to Pharmacist: 35unitsTaking Mirtazapine 45 MG Tablet 1 tablet at bedtime Orally Once a day Taking Gabapentin 100 MG Capsule 1 capsule Orally Once a day , Notes to Pharmacist: 400MGTaking Acetaminophen 325 MG Tablet 1 tablet as needed Orally every 4 hrs Taking Clopidogrel Bisulfate 75 MG Tablet 1 tablet Orally Once a day Taking Lipitor 10 MG Tablet 1 tablet Orally Once a day Taking Tresiba 100 UNIT/ML Solution as directed Subcutaneous , Notes to Pharmacist: 35unitsNot-TakingPARoxetine HCl 10 MG Tablet 1 tablet in the morning Orally Once a day Famotidine 20 MG Tablet 1 tablet at bedtime as needed Orally Once a day predniSONE 10 MG [...] reviewed and reconciled with the patientNot- Taking PARoxetine HCl 10 MG Tablet 1 tablet in the morning Orally Once a day Not-Taking Famotidine 20 MG Tablet 1 tablet at bedtime as needed Orally Once a day Not- Taking predniSONE 10 MG Tablet four tablets day [...] at bedtime Orally Once a day Not-Taking Escitalopram Oxalate 5 MG Tablet 1 tablet Orally Once a day Not-Taking Lisinopril 10 MG Tablet 1 tablet Orally Once a day Not-Taking hydroCHLOROthiazide 25 MG Tablet 1 tablet in the morning Orally Once a day Medication List reviewed and reconciled with the patient * Allergies:??ZocorGlucophagen o[Allergies Verified] Objective: * Vitals:??Wt: 202.8 lbs, Ht: 5ft 5in, BMI: 33.74 Index, HR: 106 /min, Temp: 96.8 F, RR: 16 /min, Ht-cm: 165.1, Wt-k.99 kg. * ?Past Orders: ?Lab:ANTI-NUCLEAR ANTIB MARILYN SCREEN, REFLEX TO TITER (Order 08/01/2023) (Collection Date & Time - 08/02/2023 10:49 AM) ? Value Reference Range ?ANTI-NUCLEAR ANTIBODY SCREEN NEGATIVE - ?Lab:CITRULLINE PEPTIDE ANTIBODY (Order - 08/01/2023) (Collection Date & Time - 08/02/2023 10:49 AM) ? Value Reference Range ?CCP ANTIBODY 6 - ?Lab:FERRITIN (Order Da 08/01/2023) (Collection Date & Time - 08/02/2023 10:49 AM) ? Value Reference Range ?FERRITIN 71 (93 -388) - NG/ML ?Lab:IRON AND TIBC (Ord er Date - 08/01/2023) (Collection Date & Time - 08/02/2023 10:49 AM) ? Value Reference Range ?EST T. IRON BIND CAPACITY 312 (140-530) - MCG/DL ?% IRON SATURATION 21 (20-55) - % ?UNSATURATED IRON BINDING CAPACITY 246 (110-370) - MCG/DL ?IRON 66 (30-160 ) - MCG/DL ?Lab:PTH, INTACT (Order Date - 08/01/2023) (Collection Date & Time - 08/02/2023 10:49 AM) ? Value Reference Range ?PTH, INTACT 33 (15-65) - PG/ML ?Lab:RHEUMATOID FACTOR (Order Date - 08/01/2023) (Collection Date & Time - 08/02/2023 10:49 AM) ? Value Reference Range ?RHEUMATOID FACTOR <10.0 (<14) - IU/ML * Examination: ?General Examination: ?This is an elderly female. Alert and oriented today and in no acute distress. Patient comes in ambulating in slip on shoes without using any assistive devices. Breathing is regular and unlabored while sitting. Affect is pleasant and cooperative. No unusual anxiety or depression noted. Hearing intact to spoken word. No evidence of visual impairment that would impact self care or ambulation. Patient has palpable dorsalis pedis and posterior tibial pulse bilaterally. I also dopplered her DP and PT today and both were strongly biphasic bilaterally. No peripheral edema. No varicosities visualized. Capillary refill is less than 3 seconds to all digits bilaterally. Light touch sensation is symmetrical to all lower extremity dermatomes. Babinski is downgoing. Skin has normal turgor and texture. There are no open wounds, rashes, or lesions noted. There is no warmth erythema or ecchymosis to either foot. There is mild hypertrophy to the posterior aspect of the heel bilaterally at the level of the Achilles insertion. No pain with pressure to this area. No pain with pressure around the Achilles bilaterally. Lesser hammertoes bilaterally. The left 3rd toe has no obvious new changes. There is no pain with pressure to the left 3rd toe. No pain with motion of the left 3rd DIPJ, PIPJ, or MPJ. Bilateral hallux valgus with rigidus. No pain with pressure to the plantar heel bilaterally. + tinel with percussion over the common peroneal nerve at the fibular neck on the left. There is 4/5 strength when testing the peroneals on the right and left. Assessment: * Assessment: 1.??Dactylitis due to spondy loarthritic disorder - M46.90 (Primary)??2.??Pain in toe of left foot - M79.675?? Plan: * Treatment: * Procedure Codes:?? * Billing Information: * Visit Code:?? 13374 Office Visit, Est Pt., Level 4. * Procedure Codes:?? * Sign off status: Completed true * Provider:??Sarah Remy DPM Date:??07/2024
--- OUTSIDE RECORDS SUMMARY | 2024-05-14 09:46 | XMS_ITS | Continuity of Care Document ---
Author Organization [facility] Address [address] [place] [address]- Care Team Providers Care Poultry Dressing Worker Name Role Phone Sona ALVARES, Cm Savage Primary Care Physician Encounter [facility] [place] Date(s): 08/27/22 - 09/26/22 [facility] [address] [place] [address]- Allergies, Adverse Reactions, Alerts Substance Reaction Severity [...] 12:35:00 EST, Tablet, [facility] [...] Team Personnel Name: Cm Magallanes MD Position: [facility] Physician (General Medicine) Member Role: PCP Address: Address: [address] [place] [address] [address] [facility] [place] [place] [address]- Name: Ainsley Anderson RN Position: S RN Member Role: Primary Care Nurse Name: Monica Sun RN Position: S RN Member Role: Primary Care Nurse Name: Ginger Jones RN Position: [facility] RN Member Role: Primary Care Nurse Name: [...] Persons Name: ALANISМАРИНА AGUIRRE Address: home [address] [place] [address]
--- OUTSIDE RECORDS SUMMARY | 2024-05-14 09:46 | XMS_ITS | Continuity of Care Document ---
Author Organization [facility] Address [address] [place] [address]- Care Team Providers Care Insulation Worker Furnace Installer Name Role Phone Cm Magallanes MD Primary Care Physician Encounter [facility] [place] Date(s): 09/10/22 - 10/05/[address] [address]- Encounter Diagnosis Dizziness and giddiness(Final) - Discharge Disposition: A-D/C Home Attending Physician: Saloni Joseph DO Admitting Physician: Saloni Joseph DO Referring Physician: Cm Magallanes MD Allergies, Adverse [...] 0 Refills, Maintenance, 07/10/22 12:24:00 EST, Tablet, [facility], Partial fill upon patient request if the prescription is for a schedule II opioid drug., 163, cm, 07/10/22 11:42:00... Start Date: 07/10/22 Stop Date: 08/09/22 Status: Ordered aspirin 81 mg oral delayed release tablet 81 mg, By Mouth, Daily, # 30 tablet, Refills 3, Tot. Refills 3, Maintenance, 10/03/21 8:10:00 EST, Route to Pharmacy Electronically, [facility], Partial fill upon patient request if theprescription is for a schedule II opioid drug., 162... Start Date: 10/03/21 Stop Date: 01/31/22 Status: Ordered atorvastatin 80 mg oral tablet 1 tablet = 80 mg, By Mouth, Daily, # 30 tablet, 0 Refills, Maintenance, 07/10/22 12:35:00 EST, Tablet, [facility], Partial fill upon patient request if [...] Team Personnel Name: Cm Magallanes MD Position: [facility] Physician (General Medicine) Member Role: PCP Address: Address: [address] [place] [address] [place], [place] [address]kand[facility]anda [facility] [address] Name: Ainsley Anderson RN Position: [facility] RN Member Role: Primary Care Nurse Name: Monica Sun RN Position: [facility] RN Member Role: Primary Care Nurse Name: Ginger Jones RN Position: [facility] RN Member Role: Primary Care Nurse Name: Ramsey Herrera RN Position: [facility] RN Member Role: Primary Care Nurse Name: Di Perez RN Position: [facility] RN Member Role: Primary Care Nurse Name: Priti Wagoner RN Position: [facility] RN Member Role: Primary Care Nurse Name: Yaa Alexander RN Position: [facility] RN Member Role: Primary Care Nurse Name: Bhavya Ricardo RN Position: [facility] RN Member Role: Primary Care Nurse Name: Sarah Augustin RN Position: [facility] RN Member Role: Primary Care Nurse Name: Josie Taylor RN Position: [facility] RN Member Role: Primary Care Nurse Name: Rachel Moreno RN Position: [facility] RN Member Role: Primary Care Nurse Name: Sarah Cash LPN Position: [facility] RN Member Role: Primary Care Nurse Name: Izabela Parikh RN Position: [facility] RN Member Role: Primary Care Nurse Name: Gita Borden LPN Position: [facility] RN Member Role: Primary Care Nurse Name: Annie Lehman Position: S RN Member Role: Primary Care Nurse Care Team Related Persons Name: МАРИНА HOBBS Address: [address] [address]
--- OUTSIDE RECORDS SUMMARY | 2024-05-14 09:46 | XMS_ITS | Continuity of Care Document ---
Author Organization [facility] Address [address] [place] [address] [address], [address] [place] [address]- Care Team Providers Care Ribbon Sweatband Operator Name Role Phone Sona ALVARES, Cm Savage Primary Care Physician En[facility] Date(s): 02/21/24 - 03/22/24 [facility] [address] [place] [address] Drive [address] [place], [place] [address] Allergies, Adverse Reactions, Alerts Substance Reaction [...] 0 Refills, Maintenance, 07/10/22 12:24:00 EST, Tablet, [facility], Partial fill upon patient request if the prescription is for a schedule II opioid drug., 163, cm, 07/10/22 11:42:00... Start Date: 07/10/22 Stop Date: 08/09/22 Status: Ordered aspirin 81 mg oral delayed release tablet 81 mg, By Mouth, Daily, # 30 tablet, Refills 3, Tot. Refills 3, Maintenance, 10/03/21 8:10:00 EST, Route to Pharmacy Electronically, [facility], Partial fill upon patient request if theprescription is for a schedule II opioid drug., 162... Start Date: 10/03/21 Stop Date: 01/31/22 Status: Ordered atorvastatin 80 mg oral tablet 1 tablet = 80 mg, By Mouth, Daily, # 30 tablet, 0 Refills, Maintenance, 07/10/22 12:35:00 EST, Tablet, [facility], Partial fill upon [...] Team Personnel Name: Cm Magallanes MD Position: [facility] Physician - Primary Care Member Role: PCP Address: Address: [address] [place] [address]- Name: Monica Sun RN Position: [facility] RN Member Role: Primary Care Nurse Name: Ramsey Herrera RN Position: [facility] RN Member Role: Primary Care Nurse Name: Di Perez RN Position: [facility] RN Member Role: Primary Care Nurse Name: Priti Wagoner RN Position: [facility] RN Member Role: Primary Care Nurse Name: Yaa Alexander NP Position: [facility] PCO Associate Professional Member Role: Primary Care Nurse Address: Address: [address] [place] [address]- Name: Bhavya Ricardo RN Position: [facility] FEI Nurse Member Role: Primary Care Nurse Name: Sarah Augustin RN Position: [facility] RN Member Role: Primary Care Nurse Name: Josie Taylor RN Position: [facility] Onco RN Member Role: Primary Care Nurse Name: Rachel Moreno RN Position: [facility] RN Member Role: Primary Care Nurse Name: Sarah Cash LPN Position: S RN Member Role: Primary Care Nurse Name: Izabela Parikh RN Position: [facility] RN Member Role: Primary Care Nurse Name: Gita Borden LPN Position: [facility] RN Member Role: Primary Care Nurse Name: Annie Lehman RN Position: [facility] RN Member Role: Primary Care Nurse Care Team Related Persons Name: МАРИНА HOBBS Address: [place] [id number]
--- OUTSIDE RECORDS SUMMARY | 2024-05-14 09:46 | XMS_ITS ---
Author Organization [facility] Address [address] [address] Care Team Providers Care Investigator Name Role Phone Cm Magallanes Primary Care Provider Unavail able GIO ADHIKARI Unavailable [phone] REASON FOR VISIT [facility] Vascular referral Encounters Encounter Location Date Provider Diagnosis [facility] [address] [facility] [address] [place] [address] 01/01/2024 GIO ADHIKARI PLAN OF TREATMENT No Information Progress Notes * Starr HOBBS MDOB:1944 (78 yo F)Acc No.[id number]:01/01/2024 Patient:??ALANISTIMOTHYStarr :1945?Age:78 Y?Sex:Fe male Phone: Address:[place] [address] * true * Date:??
--- OUTSIDE RECORDS SUMMARY | 2024-05-14 09:46 | XMS_ITS | Continuity of Care Document ---
Author Organization [facility] Address [address] [place] [address] [address], [address] [place] [address]- Care Team Providers Care Tong Hooker Name Role Phone Sona ALVARES, Cm Savage Primary Care Physician [place] [facility] [place]/28/22 [facility] [address] [place] [address] Drive, [address] [place], [place] [address] Attending Physician: Kyle Lackey Admitting Physician: AdmKyle garcia Referring Physician: Admtr, Kyle Allergies, Adverse Reactions, Alerts Substance Reaction Severity [...] 8:10:00 EST, Route to Pharmacy Electronically, [facility], Partial fill upon patient request if theprescription is for a schedule II opioid drug., 162... Start Date: 10/03/21 Stop Date: 01/31/22 Status: Ordered atorvastatin 80 mg oral tablet 1 tablet = 80 mg, By Mouth, Daily at bedtime, # 30 tablet, 0 Refills, Maintenance, 02/27/22 10:43:00 EDT, Tablet, [facility]/pharmacy #[id number], Partial fill upon patient request if the [...] EDT, Route to Pharmacy Electronically, [facility]/pharmacy #[id number], Partial fill upon patient request if the [...] 100 in lifetime) entered on: 01/04/21 Sex Care Team Personnel Name: Cm Magallanes MD Address: [address] [place] [address] #[facility] [place] [address]-
--- OUTSIDE RECORDS SUMMARY | 2024-05-14 09:46 | XMS_ITS | Continuity of Care Document ---
Author Organization [facility] Address [address] [place] [address]- Care Team Providers Care Insurance Manager Name Role Phone Sona ALVARES, Cm Savage Primary Care Physician Encounter [facility] [place] Date(s): 02/06/23 - 03/08/23 [facility] [address] [place], [place] [address] Attending Physician: Kyle Lackey Admitting Physician: [...] 0 Refills, Maintenance, 07/10/22 12:24:00 EST, Tablet, [facility], Partial fill upon patient request if the prescription is for a schedule II opioid drug., 163, cm, 07/10/22 11:42:00... Start Date: 07/10/22 Stop Date: 08/09/22 Status: Ordered aspirin 81 mg oral delayed release tablet 81 mg, By Mouth, Daily, # 30 tablet, Refills 3, Tot. Refills 3, Maintenance, 10/03/21 8:10:00 EST, Route to Pharmacy Electronically, [facility], Partial fill upon patient request if theprescription is for a schedule II opioid drug., 162... Start Date: 10/03/21 Stop Date: 01/31/22 Status: Ordered atorvastatin 80 mg oral tablet 1 tablet = 80 mg, By Mouth, Daily, # 30 tablet, 0 Refills, Maintenance, 07/10/22 12:35:00 EST, Tablet, [facility], Partial fill upon patient [...] Team Personnel Name: Cm Magallanes MD Position: [facility] Physician - Primary Care Member Role: PCP Address: Address: [address] [place] [address] #[facility] [place] [address] Name: Monica Sun RN Position: [facility] RN Member Role: Primary Care Nurse Name: Ginger Jones RN Position: [facility] RN Member Role: Primary Care Nurse Name: Ramsey Herrera RN Position: [facility] RN Member Role: Primary Care Nurse Name: Di Perez RN Position: S RN Member Role: Primary Care Nurse Name: Priti Wagoner RN Position: [facility] RN Member Role: Primary Care Nurse Name: Yaa Alexander RN Position: [facility] RN Member Role: Primary Care Nurse Name: Sarah Augustin RN Position: [facility] RN Member Role: Primary Care Nurse Name: Josie Taylor RN Position: [facility] RN Member Role: Primary Care Nurse Name: Rachel Moreno RN Position: [facility] RN Member Role: Primary Care Nurse Name: Sarah Cash LPN Position: S RN Member Role: Primary Care Nurse Name: Izabela Parikh RN Position: S RN Member Role: Primary Care Nurse Name: Gita Borden LPN Position: S RN Member Role: Primary Care Nurse Name: Annie Lehman RN Position: [facility] RN Member Role: Primary Care Nurse Care Team Related Persons Name: МАРИНА HOBBS Address: home [address] [place] [address]
--- OUTSIDE RECORDS SUMMARY | 2024-05-14 09:46 | XMS_ITS | Patient Health Record ---
Author Organization [facility] Address [address] [facility] [address] [place] [address] Care Team Providers Care Health Support Specialist Name Role Phone Cm Magallanes Primary Care Provider Unavail able GIO ADHIKARI Unavailable [phone] ALLERGIES Allergen (clinical drug ingredient) Drug/Non Drug Allergy documented on EMR Reaction Allergy Type Onset Date Status Glucophage Unknown Drug Allergy Active simvastatin Zocor Unknown Drug Allergy Activ e RESULTS Component Value Reference Range Notes ANTI-NUCLEAR ANTIBODY SCREEN , REFLEX TO TITER Reviewed date:08/05/2023 07:56:14 AM Interpretation: Performing Lab:Testing performed or reported by [facility], a Service of [facility], [address] [place] [address] Obi Holloway MD, Hospitalist [facility]# [id number] Notes/Report: ANTI-NUCLEAR ANTIBODY SCREEN NEGATIVE (NOTE) Negative <1:80 Borderline 1:80 Positive >1:80 ICAP nomenclature: AC-0 For more information about Hep-2 cell patterns use ANApatterns.org, the official website for the International Consensus on Antinuclear Antibody (REYNALDO) Patterns (ICAP). Test performed by [facility], [address] [place] [address] CITRULLINE PEPTIDE ANTIBODY Reviewed date:08/05/2023 07:56:14 AM Interpretation: Performing Lab:Testing performed or reported by [facility], a Service of [facility], [address] [place] [address] Obi Holloway MD, Hospitalist CLIA# [id number] Notes/Report: CCP ANTIBODY 6 Reference range: 0 to 19 Unit: units (NOTE) Negative <20 Weak positive 20 - 39 Moderate positive 40 - 59 Strong positive >59 Test performed by [facility], [address] [place] [address] FERRITIN Reviewed date:08/05/2023 07:56:14 AM Interpretation: Performing Lab:Testing performed or reported by [facility], a Service of [address] [address] Obi Holloway MD, Hospitalist [facility]# [id number] Notes/Report: FERRITIN 71 (14-283) NG/ML IRON AND TIBC Reviewed date:08/05/2023 07:56:14 AM Interpretation: Performing Lab:Testing performed or reported by [facility], a Service of [address] [address] Obi Holloway MD, Hospitalist [facility]# [id number] Notes/Report: IRON 66 (30-160) MCG/DL UNSATURATED IRON BINDING CAPAC 246 (110-370) MCG/DL EST T. IRON BIND CAPACITY 312 (140-530) MCG/D L % IRON SATURATION 21 (20-55) % PTH, INTACT Reviewed date:08/05/2023 07:56:14 AM Interpretation: Performing Lab:Testing performed or reported by [facility], a Service of [address] [address] Obi Holloway MD, Hospitalist [facility]# [id number] Notes/Report: PTH, INTACT 33 (15-65) PG/ML RHEUMATOID FACTOR Reviewed date:08/05/2023 07:56:14 AM Interpretation: Performing Lab:Testing performed or reported by [facility], a Service of [address] [address] Obi Holloway MD, Hospitalist [facility]# [id number] Notes/Report: RHEUMATOID FACTOR <10.0 (<14) IU/ML REASON FOR REFERRAL No Information MEDICATIONS Medication SIG (Take, Route, Frequency, Duration) Notes Start Date End Date Status Fluticasone Propionate 50 MCG/ACT 1 spray in each nostril Nasally Once a day Active PARoxetine HCl 10 MG 1 tablet in the morning Orally Once a day Not-Taking dilTIAZem HCl ER Coated Beads 180 MG 1 capsule Orally Once a day Active Lipitor 40 MG 1 tablet Orally Once a day Active hydroCHLOROthiazide 25 MG 1 tablet in morning Orally Once a day Not-Taking Latanoprost 0.005 % 1 drop into affected eye in the evening Ophthalmic Once a day Active Tresiba 100 UNIT/ML as directed Subcutaneous 34units Active Acetaminophen 500 MG 1 tablet as needed Orally every 4 hrs Active Escitalopram Oxalate 5 MG 1 tablet Orall y Once a day Not-Taking Clopidogrel Bisulfate 75 MG 1 tablet Orally Once a day Not-Taking Lisinopril 10 MG 1 tablet Orally Once a day Not-Taking Mirtazapine 45 MG 1 tablet at bedtime Orally Once a day Active amLODIPine Besylate 5 MG 1 tablet Orally Once a day Not-Taking Gabapentin 300 MG 1 capsule Orally Once a day Active Remeron 15 MG 1 tablet at bedtime Orally Once a day Not-Taking Eliquis 5 MG 1 tablet Orally Twice a day Active metFORMIN HCl 500 MG 1 tablet with a meal Orally Once a day Not-Taking Alirocumab 75 MG/ML as directed Subcutaneous every 14 days Active Aspirin 81 81 MG 1 tablet Orally Once a day Not-Taking Famotidine 20 MG 1 tablet at bedtime as needed Orally Once a day Active Chlorthalidone 25 MG 1 tablet in the morning with food Orally Active predniSONE 10 MG four tablets day 1, 2, 3 three tablets day 4,5,6 two tablets day 7,8,9 one tablet day 10,11,12 Orally Once a day for 12 day(s) 10/12/2021 Not-Taking PROBLEMS Problem Type ICD Code Onset Dates Problem Status W/U Status Risk SNOMED Code Notes Problem 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) Active confirmed 520759355 Problem 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 004820397 Problem 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) Active confirmed 424598523285400 Problem Microcytic anemia (D50.9) Active confirmed 084303081 Problem Diffuse arthralgia (M25.50) Active confirmed 63203891 Problem Serum calcium elevated (E83.52) Active confirmed 15843458 VITAL SIGNS Heart Rate 94 /min 01/01/2024 Temperature 96.7 degrees Fahrenheit 01/01/2024 Respiratory Rate 20 /min 01/01/2024 Height 5ft 5in in 01/01/2024 Weight 201.5 lbs 01/01/2024 BMI 33.53 kg/m2 01/01/2024 Encounters Encounter Location Date Provider Diagnosis [facility] [address] [facility] [address] [place] [address] 07/31/2023 GIO ONOFRE Pain of left heel M7 9.672 ; Pain of right heel M79.671 and Bilateral lumbar radiculopathy M54.16 [facility] [address] 09/30/2023 GIOLESLEY ADHIKARI Dactylitis due to spondyloarthritic disorder M46.90 and Pain in toe of left foot M79.675 [facility] [address] 01/01/2024 GIO ONOFRE Pain of left great t oe M79.675 and Extremity atherosclerosis with resting pain I70.229 [facility] [address] 08/01/2023 GIO ONOFRE [facility] [address] 08/05/2023 GIO ONOFRE [facility] [address] 09/10/2023 GIO ONOFRE [facility] [address] 01/01/2024 GIO ADHIKARI ASSESSMENTS Encounter Date Diagnosis Assessment Notes Treatment Notes Treatment Clinical Notes 07/31/2023 Pain of right heel (ICD-10 - M79.671) 07/31/2023 Pain of left heel (ICD-10 - M79.672) 09/30/2023 Pain in toe of left foot (ICD-10 - M79.675) 09/30/2023 Dactylitis due to spondyloarthritic disorder (ICD-10 [...] understanding. She will follow back as needed. 01/01/2024 Pain of left great t oe (ICD-10 - M79.675) This is an outpatient [...] worsens. She already follows with vascular at [facility] for her carotids, I will try to get these studies done over there. 01/01/2024 Extremity atherosclerosis with resting pain (ICD-10 - I70.229) 07/31/2023 Bilateral lumbar radiculopathy (ICD-10 - M54.16) Patient examined and evaluated. Her past medical history was revieewed. Three weightbearing radiographs of the left and right foot were taken in the office today and reviewed with the patient. I also compared them to her xrays in the past. No acute bony changes. She has been having nocturnal pain to the posterior right and left heel and the left 3rd toe. No pain on examination today. This is definitely neurological in origin and may be from her lumbar spine issues. I advise she try taking 200mg of the gabapentin right before bed to see if this helps calm the symptoms for her. I also advise that she discuss her symptoms with her PCP and neurosurgeon. She was agreeable with this plan and will follow back as needed. PLAN OF TREATMENT Pending Test Test Name Order Date GERHARD 01/01/2024 Ultrasound : Artery Doppler Low Ext Bila t 01/01/2024 X ray : Foot, left 3v 01/01/2024 X ray : Foot, left 3v 04/20/2021 X ray : Foot, right 3v 10/16/2021 DRAIN/INJECT, SMALL JOINT/BURSA 04/20/20 21 Insurance Providers Payer Name Payer Address Payer Phone Subscriber Number Group Number Insured Name Patient Relationship to Insured Coverage Start Date Coverage End Date [employer] [place] [address] [place] [phone] [id number] [place], [place] Self - patient is the insured [employer] [address] [place] [address] [id number] [place], [place] Self - patient is the insured MEDICATIONS ADMINISTERED Medication Instructions Date of Administration Dosage Notes Dexamethasone 04/20/2021 2 mg Kenalog 04/20/2021 20 mg MEDICAL (GENERAL) HISTORY Medical History History ICD Code IDDM Hypertension Hyperlipidemia GERD Restless leg syndrome Osteoarthritis of multiple joints COVID vaccinated X 2 (Pfizer) Lumbar spine pain with sciatica left yina e dactylitis Surgical History Surgery Date(Month/Year) Lumbar spine surgery x3 Right and left Total knee arthroplasties Right and left total shoulder replacemen ts 4th lumbar spine surgery 09/2022 Hospitalization History Reason Date(Month/Year) back surgery 09/2022 [place]: [facility] 09/2021
--- OUTSIDE RECORDS SUMMARY | 2024-05-14 09:46 | XMS_ITS | Continuity of Care Document ---
Author Organization [facility] Address [address] [place] [address] [address], [address] [place] [address]- Care Team Providers Care Bioinformatics Programmer Name Role Phone Sona ALVARES, Cm Savage Primary Care Physician [place] [facility] [place] 06/29/22 - 09/27/22 [facility] [address] [place] [address] Drive, [address] [place], [place] [address] Attending Physician: Ivan Herrera MD Referring Physician: [...] 0 Refills, Maintenance, 07/10/22 12:24:00 EST, Tablet, [facility], Partial fill upon patient request if the prescription is for a schedule II opioid drug., 163, cm, 07/10/22 11:42:00... Start Date: 07/10/22 Stop Date: 08/09/22 Status: Ordered aspirin 81 mg oral delayed release tablet 81 mg, By Mouth, Daily, # 30 tablet, Refills 3, Tot. Refills 3, Maintenance, 10/03/21 8:10:00 EST, Route to Pharmacy Electronically, [facility], Partial fill upon patient request if theprescription is for a schedule II opioid drug., 162... Start Date: 10/03/21 Stop Date: 01/31/22 Status: Ordered atorvastatin 80 mg oral tablet 1 tablet = 80 mg, By Mouth, Daily, # 30 tablet, 0 Refills, Maintenance, 07/10/22 12:35:00 EST, Tablet, [facility], Partial fill upon patient request if [...] Team Personnel Name: Cm Magallanes MD Position: [facility] Physician (General Medicine) Member Role: PCP Address: Address: [address] [place] [address] #[facility] [address] Sandra Singh [address] Name: Ainsley Anderson RN Position: [facility] RN Member Role: Primary Care Nurse Name: Monica Sun RN Position: [facility] RN Member Role: Primary Care Nurse Name: Ginger Jones RN Position: S RN Member Role: Primary Care Nurse Name: Ramsey Herrera RN Position: [facility] RN Member Role: Primary Care Nurse Name: Di Perez RN Position: [facility] RN Member Role: Primary Care Nurse Name: Priti Wagoner RN Position: S RN Member Role: Primary Care Nurse Name: Yaa Alexander RN Position: [facility] RN Member Role: Primary Care Nurse Name: Bhavya Ricardo RN Position: [facility] RN Member Role: Primary Care Nurse Name: Sarah Augustin RN Position: S RN Member Role: Primary Care Nurse Name: Josie Taylor RN Position: [facility] RN Member Role: Primary Care [...] Care Nurse Care Team Related Persons Name: ANJELSOPHIEEL Address: home [address] [place] [address]
--- NOTE | 2024-05-14 11:03 | MHC.SHP ---
Pre-Procedural Eval Section A - 24 Hr Update-Section A only Date of Service: 05/14/24 The patient is an INPATIENT: No Section B - Complete if H&P > 30 days Chief Complaint: Lumbago with sciatica, unspecified side Allergies: Allergies Allergy/AdvReac Type Severity Reaction Status Date / Time exenatide [From Byetta] Allergy Nausea Verified 05/14/24 10:26 metformin [From Glucophage] Allergy Nausea Verified 05/14/24 10:26 rosuvastatin [From Crestor] Allergy Nausea Verified 05/14/24 10:26 sertraline [From Zoloft] Allergy Nausea Verified 05/14/24 10:26 simvastatin [From Zocor] Allergy Nausea Verified 05/14/24 10:26 Review of Systems Sugical H&P ROS: Negative: Constitution, Cardiovascular, Respiratory, Neurological, Psychiatric, Hem-Onc, Allergic/Immunologic, Gastrointestinal, Genitourinary, Musculoskeletal, Integumentary, Endocrine and Eyes/Ears/Nose/Throat Exam Surgical H&P Exam: Normal: HEENT, Normal: Heart, Normal: Lungs, Normal: Extremities, Normal: Abdomen, Normal: Skin and Normal: Neurological (Awake, alert) Plan Diagnosis/Plan: Unchanged I have reviewed the history and physical and performed a pertinent physical examination on my patient. No changes have occurred unless specified. Left L2-3 microdiskectomy, extraforaminal approach Time Spent With Patient Time: Total time managing care of this patient today __5__ minutes.
[2024-05-14] MEDS: Lactated Ringers 1,000 ML 100 ML IVCONT (11:14)
[2024-05-14] MEDS: methocarbamoL 750 MG TABLET PO (11:21)
[2024-05-14] MEDS: Gabapentin 300 MG CAPSULE PO (11:21)
[2024-05-14 11:49] LABS: Glucose, Whole Blood 77 mg/dL (60-115)
--- NOTE | 2024-05-14 13:18 | W.PM.OPN ---
Operative Note Operative Note Date of Service: 05/14/24 Narrative: Preop diagnosis: Left lumbar disc herniation L2-3, extraforaminal ( far lateral) with lumbar radiculopathy Postop diagnosis: same Procedure: Left L2-3 lumbar microdiskectomy, extraforaminal approach with microscope Description of procedure: This patient is suffering from a left L2 lumbar radiculopathy due to an small left L2-3 extraforaminal lumbar disc herniation compressing the L2 nerve root. A nerve block gave complete relief. The patient was offered a lumbar microdiskectomy through an extraforaminal approach. The procedure and complications were explained. The patient was consented. The patient was brought to the operating room and endotracheally intubated. The patient was turned in the prone position on Dayday frame. Prepping and draping was done followed by time-out. The lateral border of the L2-3 facet joint was marked on the skin with x-ray. A left paramedian incision was made. The muscle fascia was opened. Sequential dilators were inserted followed by a 18 mm Metrx tube. the lateral border of the L2-3 facet joint as well as the transverse process of L2 and L3 were exposed. The microscope was brought in. The lateral part of facet joint was resected with a high-speed drill. The medial border of the L L3 pedicle was identified as well as the foramen. I went into the Kambin's triangle and exposed the intervertebral disc. I was able to feel a resistance under the nerve root with a nerve hook. I do not know if it consisted of disc material. However I was able to remove the resistance with a nerve hook after which no compression of the L2 nerve root was felt anymore. Physician assistant professor of economics took over the procedure and performed hemostasis and closure of the incision in 2 layers. Steri-Strips were used to approximate the incision. An Oppsite with tegaderm was used to cover the incision. All sponge and needle counts were correct. The patient was extubated and transported in stable condition to recovery room. Surgeon: Farshad Tucker MD Assist: MARIA ALEJANDRA Arzate Anesthesia: general Estimated blood loss: minimal Surgical time: 50 minutes Specimen: none Deposition: Discharge home
--- NOTE | 2024-05-14 13:21 | P.DS_ITS ---
DS: Providers Provider Date of Service: 05/14/24 Primary care physician: Cm Magallanes MD DS: Summary Time Attestation Discharge Coordination Time (in mins): 15 Quality: Safe Use of Opioids Does Pt have an Active Cancer Diagnosis on the Problem List?: No Quality: Stroke Does the patient have a stroke diagnosis?: No Physical Exam Vital Signs: Vital Signs: Last Vital Signs Temp 97.3 F 05/14/24 10:55 Pulse 91 05/14/24 10:55 Resp 16 05/14/24 10:55 BP 146/70 H 05/14/24 10:55 Pulse Ox 96 05/14/24 10:55 O2 Del Method Room Air 05/14/24 10:55 BMI result Body Mass Index 34.3 DS: Data Data Completed and Pending Labs on day of discharge: Laboratory Results - last 24 hr 05/14/24 11:45 POC Glucose 77 Discharge Plan Discharge Patient Disposition: Home, Self-Care Referrals: Cm Magallanes MD [Primary Care Provider] - 1 Week Discharge Medications: New oxycodone 5 mg tablet 5 mg PO Q6H PRN (Reason: severe pain (scale score 7-10)) Qty: 30 0RF Rx Instructions: Partial Fill upon patient request. Continued latanoprost 0.005 % drops 1 drp ophthalmic (eye) BEDTIME diltiazem HCl 180 mg capsule,extended release 24hr 180 mg PO QAM ondansetron HCl 4 mg tablet 4 mg PO Q12H PRN (Reason: Nausea) chlorthalidone 25 mg tablet 25 mg PO QAM acetaminophen 500 mg Tablet 500 mg PO BID famotidine 20 mg Tablet 20 mg PO BEDTIME mirtazapine 45 mg tablet 45 mg PO QPM lisinopril 40 mg tablet 40 mg PO DAILY insulin degludec [Tresiba FlexTouch U-100] 100 unit/mL (3 mL) insulin pen 34 unit SUBCUT QAM Patient Comments: took only 17 units gabapentin 300 mg capsule 300 mg PO BEDTIME Held Eliquis 5 mg tablet 5 mg PO BID Hold Instructions: Resume on 05/17/24. Hold for 3 days post operatively Repatha SureClick 140 mg/mL pen injector 140 mg subcut Q2W Hold Instructions: Resume on 05/24/24. Discharge Orders: Discharge Order (Routine); Ordered 05/14/24 Ordered By: Royer Dumont Diet: Advance to usual diet Activity on Discharge: As tolerated Activity Restrictions/Additional Instructions: After your spinal surgery we ask you to observe the following restrictions/guidelines: Activity: It is normal to feel some discomfort as you increase your activity, but that will improve with time. We ask you avoid heavy lifting or acitivities that cause pain. As a general rule, 8lbs is a safe limit for lifting right after surgery. Walk as much as you feel comfortable but not to exhaustion. You will feel extra tired the first few days after surgery. Stay well hydrated. It is OK to walk up and down stairs You may return to driving when you are off narcotics (such as vicodin, oxycodone, dilaudid, etc), and you are back to normal functional capacity. If you have any concerns please check with office before driving. Return to work is specific to each patient and each surgery, so please speak with your doctor/PA at first follow up. Please bring paperwork such as FMLA at that time if you need it filled out. Medications: Please hold your eliquis for the first 3 days after surgery. Please discuss restarting your Repatha injection with your prescriber. We recommend you take 1,000mg Tylenol every 8 hours for the first few weeks after surgery, if you do not have any liver issues and can tolerate this medication. Do not exceed 4,000mg daily. We will give you a short supply of narcotics after surgery (usually one weeks worth). If you need more please call the office but do not use more than prescribed. You will need to give our office 48 hours notice if you need narcotics refilled and we do not fill narcotics on weekends or evenings. If you are on a narcotic, it is a good idea to take a stool softener such as colace or senna to avoid constipation If you take blood thinner such as aspirin, Plavix, Coumadin, Effient, Eliquis etc for conditions such as Afib, DVT, Pulmonary embolus, coronary disease, stents etc please speak with your surgeon about specific details as to when you can resume these medications. You can resume NSAIDs on post op day 1 (eg: Motrin, Naproxen, etc). Follow up: Please call the office, , after surgery to arrange a 3 week follow up for wound check. Wound Care: You may remove your dressing on the first day after surgery. ?You may ?leave open to air. Please do not remove the steri strips underneath. they will fall off on their own in one week. IT IS NORMAL FOR THE WOUND TO OOZE OR BE BLOODY FOR A FEW DAYS AFTER SURGERY. ?IF THIS HAPPENS JUST PLACE NEW DRESSING OVER IT TO AVOID STAINING CLOTHES. You may shower on post op day # 1 We ask that you do not let the water soak the wound. If it does get wet, just towel dry lightly. Please do not scrub your incision or place any type of chemical/ointment on the wound. No tub baths, pools or jacuzzis for one month. If you have any leaking or redness from your wound, or fevers, please call the office. Print Language: Greenlandic
[2024-05-14] MEDS: ondansetron HCL 4 MG/2 ML VIAL IVPUSH (14:05)
[2024-05-14] MEDS: Haloperidol Lactate 5 MG/ML VIAL 1 MG IVPUSH (14:17)
[2024-05-14 15:41] LABS: Glucose, Whole Blood 74 mg/dL (60-115)
== END 2024-05-14 15:45 | disposition home or self-care (01) ==
PROVIDERS: PCP Internal Medicine; Visit Provider Neurological Surgery
PROC: (CPT 63056; principal; 2024-05-14 12:20)
DX: M51.26 Other intervertebral disc displacement, lumbar region (principal); M54.16 Radiculopathy, lumbar region; M54.40 Lumbago with sciatica, unspecified side; I10 Essential (primary) hypertension; I48.0 Paroxysmal atrial fibrillation; E78.00 Pure hypercholesterolemia, unspecified; E11.9 Type 2 diabetes mellitus without complications; K21.9 Gastro-esophageal reflux disease without esophagitis; Z79.01 Long term (current) use of anticoagulants; Z79.4 Long term (current) use of insulin; Z79.899 Other long term (current) drug therapy; Z88.8 Allergy status to other drugs, medicaments and biological substances; Z95.818 Presence of other cardiac implants and grafts; Z86.73 Personal history of transient ischemic attack (TIA), and cerebral infarction without residual deficits; Z98.890 Other specified postprocedural states; Z87.891 Personal history of nicotine dependence
CPT/HCPCS: 63056; 82947; J0131; J0690; J1596; J1630; J1805; J1920; J2250; J2405; J2704; J3010

== ENCOUNTER → 2024-05-14 09:40 | Outpatient (BNV) | payer MEDICARE, OTHER, SELFPAY | PROVIDERS: PCP Internal Medicine; Visit Provider Neurological Surgery | DX: M51.26 Other intervertebral disc displacement, lumbar region (principal) | CPT/HCPCS: 63056; 99499 ==

== ENCOUNTER 2024-06-05 14:16 | Outpatient (AMB) | payer MEDICARE, OTHER, SELFPAY ==
--- NOTE | 2024-06-05 14:18 | HO.SPINEOV ---
Intake Visit Reasons: 1st post op Intake Note: Mrs. Braxton is here today for her 1st post-op appointment. 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 She underwent a left extraforaminal minimally invasive diskectomy on 2023 for intractable left lumbar radiculopathy. The severe pain is gone. She has mild residual numbness that should disappear over time. The incision is healed. I discharged her from further follow-up. Thank you for allowing me take care of your patient. Farshad Tucker MD, PhD Spine Fellowship Trained Neurosurgeon Director, [facility] Coding Level of Care Code Global (65322) Diagnoses Status post lumbar microdiscectomy Z98.890
== END 2024-06-05 15:01 | disposition home or self-care (01) ==
PROVIDERS: PCP Internal Medicine; Visit Provider Neurological Surgery
DX: Z98.890 Other specified postprocedural states (principal)
CPT/HCPCS: 99024

== ENCOUNTER → 2024-06-05 14:16 | Outpatient (BNVA) | payer MEDICARE, OTHER, SELFPAY | PROVIDERS: PCP Internal Medicine; Visit Provider Neurological Surgery | DX: Z98.890 Other specified postprocedural states (principal) | CPT/HCPCS: 99212 ==

== ENCOUNTER 2025-05-07 14:12 | Outpatient (AMB) | payer MEDICARE, OTHER, SELFPAY ==
--- OUTSIDE RECORDS SUMMARY | 2025-05-03 16:04 | XMS_ITS | Encounter Summary ---
Author Organization [facility] Address [address] [place] [address] Care Team Providers Care Occupational Health Manager Name Role Phone Gabino Hayward Primary Care Provider [phone] Reason for Referral * Imaging (Routine) - Authorized Specialty Diagnoses / Procedures Referred By Gingerac t Referred To Contact Radiology Diagnoses Radiculopathy of lumbar region Procedures MR Lumbar Spine wo Contrast Criss Churchill PA [address] [place] [address] Phone: tel: fax: [facility] Referral ID Status Reason Start Date Expiration Date V isits Requested Visits Authorized [id number] Authorized 04/30/2025 04/30/2026 1 1 Reason for Visit * Imaging (Routine) - Authorized Specialty Diagnoses / Procedures Referred By Contac t Referred To Contact Radiology Diagnoses Radiculopathy of lumbar region Procedures MR Lumbar Spine wo Contrast Criss Churchill PA [address] [place] [address] Phone: tel: fax: [facility] Referral ID Status Reason Start Date Expiration Date V isits Requested Visits Authorized [id number] Authorized 04/30/2025 04/30/2026 1 1 Encounter Details Date Type Department Care Team (Latest Contact Info) Description 05/03/2025 4:04 PM EDT - 05/03/2025 11:59 PM EDT Hospital Encounter [facility] MRI [address] [place] [address] Radiculopathy of lumbar region Discharge Disposition: Home or Self Care Social History Tobacco Use Types Packs/Day Years Used Date Smoking Tobacco: Never Smokeless Tobacco: Never Alcohol Use Standard Drinks/Week Comments Never 0 (1 standard drink = 0.6 oz pur e alcohol) Comments Unknown Sex and Gender Information Value Date Recorded Sex Assigned at Female 08/25/2024 9:57 AM EST Legal Sex Female 10:43 AM EST Gender Identity Female 08/25/2024 9:57 AM EST Sexual Orientation Not on file documented as of this encounter Medications at Time of Discharge acetaminophen (TYLENOL) 500 mg tablet Take 1 tablet (500 mg total) by mouth every 6 (six) hours if needed. apixaban (Eliquis) 5 mg tablet Take 1 tablet (5 mg total) by mouth 2 (two) times a day. 08/23/2022 chlorthalidone (HYGROTON) 25 mg tablet Take 1 tablet (25 mg total) by mouth 1 (one) time each day. clopidogreL (PLAVIX) 75 mg tablet Take 1 tablet (75 mg total) by mouth 1 (one) time each day. 90 tablet 1 11/30/2024 dilTIAZem CD (CARDIZEM CD) 180 mg 24 hr capsule TAKE 1 CAPSULE BY MOUTH EVERY DAY 90 capsule 1 03/16/2025 evolocumab (Repatha SureClick) 140 mg/mL pen injector injectionIndicatio ns:Cerebral infarction, unspecified ([facility] V24, CMS/HCC V28) INJECT 1 ML INTO THE SKIN EVERY 14 DAYS 90 mL 1 02/17/2025 famotidine (PEPCID ORAL) Take by mouth if needed. GABAPENTIN ORAL Take 100 mg by mouth 4 (four) times a day. insulin degludec (Tresiba FlexTouch U-100) 100 unit/mL (3 mL) injection pen Inject 36 Units under the skin 1 (one) time each day. 02/25/2022 lisinopril (PRINIVIL,ZESTRIL) 40 mg tablet Take 1 tablet (40 mg total) by mouth 1 (one) time each day. ONDANSETRON ORAL Take 4 mg by mouth if needed. 07/08/2022 documented as of this encounter Discharge Disposition Disposition Code Departure Means Destination Home or Self Care documented in this encounter Plan of Treatment Upcoming Encounters Date Type Department Care Team (Late st Contact Info) Description 06/02/2025 10:20 AM EDT Office Visit [facility] [address] [place] [address] Santino Delarosa MD [address] [place] [address] [address] [place] [address] documented as of this encounter Procedures Procedure Name Priority Date/Time Associated Diagnosis Comments MR LUMBAR SPINE WO CONTRAST Routine 05/03/2025 5:00 PM EDT Radiculopathy of lumbar region documented in this encounter Results * MR Lumbar Spine wo Contrast (05/03/2025 5:00 PM EDT) Anatomical Region Laterality Modality L-spine, Spine Magnetic Resonan ce 05/05/2025 9:38 AM EDT Impressions 05/05/2025 10:06 AM EDT Postsurgical changes at L4-5. Large inferiorly projecting right central extrusion at L2-3 with significant narrowing of the lateral recess and impingement of the right L3 nerve root. -------- FINAL REPORT -------- Dictated By: Eddie Dwyer Dictated Date: 05/05/2025 09:38 ET Assigned Physician: Eddie Dwyer Reviewed and Electronically Signed By: Eddie Dwyer Signed Date: 05/05/2025 10:06 ET Workstation ID: [id number] Transcribed By: Self Edit Transcribed Date: 05/05/2025 09:38 ET Narrative 05/05/2025 10:06 AM EDT PROCEDURE: MRI of the lumbar spine without contrast. TECHNIQUE: Multiplanar multisequence MRI of the lumbar spine without intravenous contrast administration. HISTORY: Radiculopathy lumbar region COMPARISON: 02/21/2024. FINDINGS: Partially visible sigmoid diverticulosis. Small bilateral T2 hyperintense renal cortical lesions, likely cysts. Prominent lower lumbar and sacral paraspinous muscular atrophy. Posterior wilmer and pedicle screw fusion, interspinous device, and interbody cage device at L4-5. Multilevel Modic endplate changes, most prominent at L2-3. No concerning marrow infiltrative lesion. The conus is in a normal position at L1. Lumbar disc levels: L1-2: Moderate disc space height loss and endplate irregularity with a small symmetric disc osteophyte complex. Mild bilateral ligamentum flavum hypertrophy and minimal degenerative irregularity of the facet joints. Mild bilateral foraminal stenosis. No significant spinal stenosis. L2-3: Moderate disc space height loss and endplate irregularity. Small symmetric disc bulge with minimal endplate osteophytes. Inferiorly projecting right central extrusion measuring 1.6 x 1.1 cm transversely and 1.7 cm craniocaudal. This results in moderate right lateral recess stenosis with impingement of the right L3 nerve root and mild spinal stenosis. There are mild degenerative changes of the facet joints, with mild bilateral foraminal stenosis. L3-4: Moderate posterior disc space height loss and mild posterior endplate irregularity. Small symmetric disc bulge and minimal endplate osteophytes. The facet joints are partially obscured by susceptibility artifact. Mild bilateral facet arthropathy and moderate bilateral ligamentum flavum hypertrophy. Mild bilateral foraminal stenosis. Mild spinal stenosis. L4-5: Fusion level. Slight anterolisthesis. No spinal or foraminal stenosis. L5-S1: Moderate disc space height loss and endplate irregularity. Small symmetric disc osteophyte complex. Mild bilateral facet arthropathy. The neural foramina are partially obscured by susceptibility artifact. There is suggestion of moderate bilateral foraminal stenosis. Procedure Note Eddie Dwyer MD - 05/05/2025 PROCEDURE: MRI of the lumbar spine without contrast. TECHNIQUE: Multiplanar multisequence MRI of the lumbar spine withoutintravenous contrast administration. HISTORY: Radiculopathy lumbar region COMPARISON: 02/21/2024. FINDINGS: Partially visible sigmoid diverticulosis. Small bilateral T2 hyperintenserenal cortical lesions, likely cysts. Prominent lower lumbar and sacralparaspinous muscular atrophy. Posterior wilmer and pedicle screw fusion, interspinous device, and interbodycage device at L4-5. Multilevel Modic endplate changes, most prominent atL2-3. No concerning marrow infiltrative lesion. The conus is in a normal position at L1. Lumbar disc levels: L1-2: Moderate disc space height loss and endplate irregularity with asmall symmetric disc osteophyte complex. Mild bilateral ligamentum flavumhypertrophy and minimal degenerative irregularity of the facet joints.Mild bilateral foraminal stenosis. No significant spinal stenosis. L2-3: Moderate disc space height loss and endplate irregularity. Smallsymmetric disc bulge with minimal endplate osteophytes. Inferiorlyprojecting right central extrusion measuring 1.6 x 1.1 cm transversely and1.7 cm craniocaudal. This results in moderate right lateral recessstenosis with impingement of the right L3 nerve root and mild spinalstenosis. There are mild degenerative changes of the facet joints, withmild bilateral foraminal stenosis. L3-4: Moderate posterior disc space height loss and mild posteriorendplate irregularity. Small symmetric disc bulge and minimal endplateosteophytes. The facet joints are partially obscured by susceptibilityartifact. Mild bilateral facet arthropathy and moderate bilateralligamentum flavum hypertrophy. Mild bilateral foraminal stenosis. Mildspinal stenosis. L4-5: Fusion level. Slight anterolisthesis. No spinal or foraminalstenosis. L5-S1: Moderate disc space height loss and endplate irregularity. Smallsymmetric disc osteophyte complex. Mild bilateral facet arthropathy. Theneural foramina are partially obscured by susceptibility artifact. Thereis suggestion of moderate bilateral foraminal stenosis. IMPRESSION: Postsurgical changes at L4-5. Large inferiorly projecting right central extrusion at L2-3 withsignificant narrowing of the lateral recess and impingement of the rightL3 nerve root. -------- FINAL REPORT -------- Dictated By: Eddie Dwyer Dictated Date: 05/05/2025 09:38 ET Assigned Physician: Eddie Dwyer Reviewed and Electronically Signed By: Eddie Dwyer Signed Date: 05/05/2025 10:06 ET Workstation ID: [id number] Transcribed By: Self Edit Transcribed Date: 05/05/2025 09:38 ET us [facility] MRI PROCEDURES Final Res ult documented in this encounter Visit Diagnoses Diagnosis Radiculopathy of lumbar region documented in this encounter Care Teams Occupational Health Manager Relationship Specialty Start Date End Date Gabino Hayward PA [address] [place] [address] PCP - General Primary Care 12/10/24 documented as of this encounter
--- OUTSIDE RECORDS SUMMARY | 2025-05-07 14:15 | XMS_ITS | Clinical Summary ---
Author Organization [facility] Address [address] [place] [address] Care Team Providers Care Rollway Man Name Role Phone Cm Magallanes MD Primary Care Provider [phone] Allergies No known active allergies Medications aspirin 81 MG chewable tablet Chew 81 mg daily. Active gabapentin (NEURONTIN) 100 MG capsule Take 100 mg by mouth 2 (two) times a day in the morning and the early evening.. Active lisinopril (PRINIVIL,ZeSTR IL) 40 MG tablet Take 40 mg by mouth daily. Active clopidogrel (PLAVIX) 75 MG tablet Take 75 mg by mouth daily. Active atorvastatin (LIPITOR) 40 MG tablet Take 40 mg by mouth daily. Active metoPROLOL SUCCINATE (TOPROL-XL) 25 MG 24 hr tablet Take 25 mg by mouth daily. Active Active Problems No known active problems Social History Tobacco Use Types Packs/Day Years Used Date Smoking Tobacco: Never Assessed Comments Unknown Sex and Gender Information Value Date Recorded Sex Assigned at Not on file Legal Sex Female 11:26 AM EDT Gender Identity Not on file Sexual Orientation Not on file Plan of Treatment Health Maintenance Due Date Last Done Comments Advance Care Planning 1945 Hepatitis C Virus Screening 1945 DTaP/Tdap/Td Vaccines (1 - Tdap) 1965 Pneumococcal Vaccines 50+ (1 of 1 - PCV) 1996 Zoster (Shingles) Vaccine (1 of 2) 1996 DXA Bone Density (Females,Ag es 65 and older) 2011 RSV Vaccine 60 years and old er and Patients (1 - 1-dose 75+ series) 2021 Influenza Vaccine 03/19/2025 04/19/2013 COVID-19 Vaccine (2023-2 5 season) 2025 Hepatitis B Vaccines Aged Out No long er eligible based on patient's age to complete this topic Insurance MEDICARE PART A & B [facility] MEDICAID OUT OF STATE [facility] on file [facility] Care Teams Rollway Man Relationship Specialty Start Date End Date Cm Magallanes MD [address] [place] [address] PCP - General Family Medicine 03/27/22
--- OUTSIDE RECORDS SUMMARY | 2025-05-07 14:15 | XMS_ITS | Encounter Summary ---
Author Organization [facility] Address [address] [place] [address] Care Team Providers Care Salvage Diver Name Role Phone Gabino Hayward Primary Care Provider [phone] Encounter Details Date Type Department Care Team (Late st Contact Info) Description 06/25/2024 Lab Requisition [facility] - Main Lab [address] [facility] [place] [address] Rogelio Montenegro MD Need updated address, phone and fax John's esophagus with dysplasia, unspecified Social History Tobacco Use Types Packs/Day Years [...] on file documented as of this encounter Plan of Treatment Upcoming Encounters Date Type Department Care Team (Late st Contact Info) Description 06/02/2025 10:20 AM EDT Office Visit [facility] [address] [facility] [address] [place] [address] Santino Delarosa MD [address] [place] [id number] documented as of this encounter Procedures Procedure Name Priority Date/Time Associated Diagnosis Comments TISSUE EXAM Routine 06/25/2024 John's esophagus with dysplasia, unspecified documented in this encounter Results * Tissue Exam (06/25/2024) Final Diagnosis Gastroesophageal junction, biopsy: Esophageal squamous mucosa with reactive epithelial cells including acanthosis, elongation of subepithelial vascular papillae, and focal spongiosis and parakeratosis. Gastric cardiac-type mucosa with chronic inflammation and reactive changes. No intestinal metaplasia and no dysplasia identified. 06/26/2024 4:01 PM [facility] Comment Workforce Development Specialist slide(s) from this case have been presented at Anatomic Pathology Intradepartmental Review Conference on 06/26/24. 06/26/2024 4:01 PM EST [facility] Gross Description A. Esophagus, GE junction: Labeled GE junction biopsy. Received in formalin are seven soft, jackson tissue fragments, ranging from 0.1 cm to 0.6 cm in greatest diameters, which are wrapped in paper and submitted in toto in one cassette, seven pieces, multiple levels on one slide. GABBIE 06/26/2024 4:01 PM [facility] Disclaimer Unless otherwise specified, all tissue is 10% NB formalin fixed and paraffin embedded. 06/26/2024 4:01 PM [facility] Tissue Esophageal structure / Unknown 06/25/2024 06/25/2024 2:52 PM EST us Rogelio Montenegro MD LAB PATHOLOGY ORDERABLES Final Result [facility] [address] [place] [address], documented in this encounter Visit Diagnoses Diagnosis John's esophagus with dysplasia, unspecified documented in this encounter Care Teams Salvage Diver Relationship Specialty Start Date End Date Gabino Hayward PA [address] [place] [id number] PCP - General Primary Care 12/10/24 documented as of this encounter
--- OUTSIDE RECORDS SUMMARY | 2025-05-07 14:15 | XMS_ITS | Encounter Summary ---
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 Name Role Phone Gabino Hayward Primary Care Provider [phone] Encounter Details Date Type Department Care Team (Latest Contact Info) Description 09/22/2024 Lab Requisition [facility] - Main Lab [address] [facility] [place] [id number] Gabino Hayward PA [address] [place] [address] Type 2 diabetes mellitus without complications (CMS/HCC V24, CMS/HCC V28); Interstitial cystitis (chronic) without hematuria; Pain in unspecified joint; Chronic fatigue, unspecified; Other retention of urine Social History Tobacco Use Types Packs/Day Years [...] Description 06/02/2025 10:20 AM EDT Office Visit [facility] [address] [place] [phone] Santino Delarosa MD [address] [place] [address] [place] [phone] documented as of this encounter Procedures Procedure Name Priority Date/Time Associated Diagnosis Comments URINALYSIS MICROSCOPIC ONLY Routine 09/22/2024 12:00 AM EST Type 2 diabetes mellitus without complications (CMS/HCC) Interstitial cystitis (chronic) without hematuria Pain in unspecified joint Chronic fatigue, unspecified Other retention of urine SST - GOLD Routine 09/22/2024 12:00 AM EST Type 2 diabetes mellitus without complications (CMS/HCC) Interstitial cystitis (chronic) without hematuria Pain in unspecified joint Chronic fatigue, unspecified Other retention of urine URINALYSIS MICROSCOPIC ONLY Routine 09/22/2024 12:00 AM EST Type 2 diabetes mellitus without complications (CMS/HCC) Interstitial cystitis (chronic) without hematuria Pain in unspecified joint Chronic fatigue, unspecified Other retention of urine CBC WITH AUTO DIFFERENTIAL Routine 09/22/2024 12:00 AM EST Type 2 diabetes mellitus without complications (CMS/HCC) Interstitial cystitis (chronic) without hematuria Pain in unspecified joint Chronic fatigue, unspecified Other retention of urine CBC AND DIFFERENTIAL Routine 09/22/2024 12:00 AM EST Type 2 diabetes mellitus without complications (CMS/HCC) Interstitial cystitis (chronic) without hematuria Pain in unspecified joint Chronic fatigue, unspecified Other retention of urine THYROID STIMULATING HORMONE Routine 09/22/2024 12:00 AM EST Type 2 diabetes mellitus without complications (CMS/HCC) Interstitial cystitis (chronic) without hematuria Pain in unspecified joint Chronic fatigue, unspecified Other retention of urine THYROXINE FREE Routine 09/22/2024 12:00 AM EST Type 2 diabetes mellitus without complications (CMS/HCC) Interstitial cystitis (chronic) without hematuria Pain in unspecified joint Chronic fatigue, unspecified Other retention of urine HEMOGLOBIN A1C Routine 09/22/2024 12:00 AM EST Type 2 diabetes mellitus without complications (CMS/HCC) Interstitial cystitis (chronic) without hematuria Pain in unspecified joint Chronic fatigue, unspecified Other retention of urine COMPREHENSIVE METABOLIC PANEL Routine 09/22/2024 12:00 AM EST Type 2 diabetes mellitus without complications (CMS/HCC) Interstitial cystitis (chronic) without hematuria Pain in unspecified joint Chronic fatigue, unspecified Other retention of urine documented in this encounter Results * SST tube (09/22/2024 12:00 AM EST) Pathologist [facility] Extra Tube Hold for add-ons. 01/14/2025 7:52 AM EDT [facility] Comment:Auto resulted. Blood Venous blood specimen / Unknown 09/22/2024 09/22/2024 6:27 PM EST Gabino BESS LAB BLOOD ORDERABLES Final Res ult [facility] [address] [place] [address], [place] [phone] * (ABNORMAL) CBC auto differential (09/22/2024 12:00 AM EST) [facility] WBC 10.6 4.8 - 10.8 K/mcL LAB HEMETOLOGY METHOD 09/22/2024 8:14 PM [facility] RBC 3.60(L) 3.80 - 4.80 M/mcL LAB HEMETOLOGY METHOD 09/22/2024 8:14 PM [facility] Hemoglobin 10.8(L) 11.5 - 16.0 g/dL LAB HEMETOLOGY METHOD 09/22/2024 8:14 PM [facility] Hematocrit 33.2(L) 35.0 - 47.0 % LAB HEMETOLOGY METHOD 09/22/2024 8:14 PM [facility] MCV 92.2 79.0 - 98.0 FL LAB HEMETOLOGY METHOD 09/22/2024 8:14 PM [facility] MCH 30.0 27.0 - 32.0 pcg LAB HEMETOLOGY METHOD 09/22/2024 8:14 PM [facility] MCHC 32.5 32.0 - 37.0 g/dL LAB HEMETOLOGY METHOD 09/22/2024 8:14 PM [facility] RDW 13.1 11.0 - 15.0 % LAB HEMETOLOGY METHOD 09/22/2024 8:14 PM [facility] Platelets 375 130 - 400 K/mcL LAB HEMETOLOGY METHOD 09/22/2024 8:14 PM [facility] MPV 10.2 7.0 - 11.0 FL LAB HEMETOLOGY METHOD 09/22/2024 8:14 PM [facility] NRBC 0.0 <1.0 % LAB HEMETOLOGY METHOD 09/22/2024 8:14 PM [facility] NRBC Absolute 0.00 <0.10 K/mcL LAB HEMETOLOGY METHOD 09/22/2024 8:14 PM [facility] Neutrophils Relative 76.7 % LAB HEMETOLOGY METHOD 09/22/2024 8:14 PM [facility] Lymphocytes Relative 17.4 % LAB HEMETOLOGY METHOD 09/22/2024 8:14 PM [facility] Monocytes Relative 4.2 % LAB HEMETOLOGY METHOD 09/22/2024 8:14 PM [facility] Eosinophils Relative 0.4 % LAB HEMETOLOGY METHOD 09/22/2024 8:14 PM [facility] Basophils Relative 0.8 % LAB HEMETOLOGY METHOD 09/22/2024 8:14 PM [facility] Immature Granulocytes Relative 0.5 % LAB HEMETOLOGY METHOD 09/22/2024 8:14 PM [facility] Neutrophils Absolute 8.15(H) 1.50 - 7.00 K/mcL LAB HEMETOLOGY METHOD 09/22/2024 8:14 PM [facility] Lymphocytes Absolute 1.85 1.00 - 5.00 K/mcL LAB HEMETOLOGY METHOD 09/22/2024 8:14 PM [facility] Monocytes Absolute 0.45 0.20 - 1.00 K/mcL LAB HEMETOLOGY METHOD 09/22/2024 8:14 PM [facility] Eosinophils Absolute 0.04 0.00 - 0.50 K/mcL LAB HEMETOLOGY METHOD 09/22/2024 8:14 PM [facility] Basophils Absolute 0.08 0.00 - 0.20 K/mcL LAB HEMETOLOGY METHOD 09/22/2024 8:14 PM [facility] Immature Granulocytes Absolute 0.05(H) 0.00 - 0.03 K/mcL LAB HEMETOLOGY METHOD 09/22/2024 8:14 PM [facility] Blood Venous blood specimen / Unknown 09/22/2024 09/22/2024 6:27 PM EST us Gabino BESS LAB BLOOD ORDERABLES Final Res ult [facility] [address] [place] [address], * (ABNORMAL) Urinalysis microscopic only (09/22/2024 12:00 AM EST) RBC, Urine 3.0 0 - 4 /HPF LAB URINALYSIS - AUTOMATED METHOD 09/22/2024 8:05 PM [facility] WBC, Urine 12.1(H) 0 - 4 /HPF LAB URINALYSIS - AUTOMATED METHOD 09/22/2024 8:05 PM [facility] Squamous Epithelial, Urine >100(H) 0 - 60 /LPF LAB URINALYSIS - AUTOMATED METHOD 09/22/2024 8:05 PM [facility] Non-Squamous Epithelial, Urine 10-20 Transitional epithelial cells. /LPF 09/22/2024 8:05 PM [facility] Bacteria, Urine Moderate(A) Negative /HPF LAB URINALYSIS - AUTOMATED METHOD 09/22/2024 8:05 PM [facility] Hyaline Casts, Urine 2.8 0 - 3 /LPF LAB URINALYSIS - AUTOMATED METHOD 09/22/2024 8:05 PM [facility] Urine Urine specimen obtained by clean catch procedure / Unknown 09/22/2024 09/22/2024 6:27 PM EST Gabino BESS LAB URINE ORDERABLES Final Res ult Performing Organization Address City/[facility]/ZIP Co de Phone Number [facility] [address] [place] [address], [place] [phone] * Thyroid stimulating hormone (09/22/2024 12:00 AM EST) TSH 3.94 0.40 - 4.00 mcIU/mL LAB CHEMISTRY METHOD 09/22/2024 7:21 PM [facility] Blood Venous blood specimen / Unknown 09/22/2024 09/22/2024 6:27 PM EST Gabino BESS LAB BLOOD ORDERABLES Final Res ult [facility] [address] [place] [address], [place] [phone] * Thyroxine free (09/22/2024 12:00 AM EST) Free T4 1.19 0.70 - 1.80 ng/dL LAB CHEMISTRY METHOD 09/22/2024 7:21 PM EST [facility] Blood Venous blood specimen / Unknown 09/22/2024 09/22/2024 6:27 PM EST Gabino BESS LAB BLOOD ORDERABLES Final Res ult Performing Organization Address [facility]/ZIP Co de Phone Number [facility] [address] [place] [address], [place] [phone] * Hemoglobin A1c (09/22/2024 12:00 AM EST) Hemoglobin A1C 5.3 <6.5 % LAB CHEMISTRY METHOD 09/23/2024 12:41 PM [facility] Mean Bld Glu Estim. 105 mg/dL LAB CHEMISTRY METHOD 09/23/2024 12:41 PM [facility] Blood Venous blood specimen / Unknown 09/22/2024 09/22/2024 6:27 PM EST Gabino BESS LAB BLOOD ORDERABLES Final Res ult Performing Organization Address [facility]/ZIP Co de Phone Number [facility] [address] [place] [address], [place] [phone] * (ABNORMAL) Comprehensive metabolic panel (09/22/2024 12:00 AM EST) Pathologist [facility] Sodium 138 133 - 145 mmol/L LAB CHEMISTRY METHOD 09/22/2024 7:22 PM [facility] Potassium 4.1 3.5 - 5.5 mmol/L LAB CHEMISTRY METHOD 09/22/2024 7:22 PM [facility] Chloride 101 96 - 110 mmol/L LAB CHEMISTRY METHOD 09/22/2024 7:22 PM [facility] CO2 31 21 - 32 mmol/L LAB CHEMISTRY METHOD 09/22/2024 7:22 PM [facility] Anion Gap 6 3 - 11 LAB CHEMISTRY METHOD 09/22/2024 7:22 PM [facility] Glucose 102(H) 70 - 100 mg/dL LAB CHEMISTRY METHOD 09/22/2024 7:22 PM [facility] BUN 25 5 - 25 mg/dL LAB CHEMISTRY METHOD 09/22/2024 7:22 PM [facility] Creatinine 1.22(H) 0.50 - 1.10 mg/dL LAB CHEMISTRY METHOD 09/22/2024 7:22 PM [facility] eGFR 46(L) >=60 mL/min/1. 73m2 LAB CHEMISTRY METHOD 09/22/2024 7:22 PM [facility] Comment:Calculation based on the Chronic Kidney Disease Epidemiology Collaboration (CKD-EPI) equation refit without adjustment for race. BUN/Creatinine Ratio 20.5 LAB CHEMISTRY METHOD 09/22/2024 7:22 PM [facility] Calcium 10.5 8.5 - 10.5 mg/dL LAB CHEMISTRY METHOD 09/22/2024 7:22 PM [facility] AST (SGOT) 16 10 - 42 unit/L LAB CHEMISTRY METHOD 09/22/2024 7:22 PM [facility] ALT (SGPT) 17 10 - 60 unit/L LAB CHEMISTRY METHOD 09/22/2024 7:22 PM [facility] Alkaline Phosphatase 156(H) 42 - 121 unit/L LAB CHEMISTRY METHOD 09/22/2024 7:22 PM [facility] Total Protein 6.7 6.0 - 8.0 g/dL LAB CHEMISTRY METHOD 09/22/2024 7:22 PM [facility] Albumin 3.8 3.2 - 5.0 g/dL LAB CHEMISTRY METHOD 09/22/2024 7:22 PM [facility] Total Bilirubin 0.3 0.0 - 1.4 mg/dL LAB CHEMISTRY METHOD 09/22/2024 7:22 PM EST [facility] Blood Venous blood specimen / Unknown 09/22/2024 09/22/2024 6:27 PM EST us Gabino BESS LAB BLOOD ORDERABLES Final Res ult [facility] [address] [place] [address], documented in this encounter Visit Diagnoses Diagnosis Type 2 diabetes mellitus without complications (CMS/HCC V24, CMS/HCC V28) Interstitial cystitis (chronic) without hematuria Pain in unspecified joint Chronic fatigue, unspecified Other retention of urine documented in this encounter Care Teams [employer]er And Repairer Relationship Specialty Start Date End Date Gabino Hayward PA [address] [address] PCP - General Primary Care 12/10/24 documented as of this encounter
--- OUTSIDE RECORDS SUMMARY | 2025-05-07 14:15 | XMS_ITS | Clinical Summary ---
Author Organization [facility] [employer] Address [address] [facility] [place] [address] Phone Care Team Providers Care Sales Promotion Officer Name Role Phone Gabino Hayward Primary Care Provider [phone] Allergies Active Allergy Reactions Criticality Noted Date Comments Exenatide Nausea And Vomiting 03/21/2021 Metformin Nausea And Vomiting 03/21/2021 Rosuvastatin 03/21/2021 Aches and pains Sertraline Low 03/21/2021 Simvastatin 03/21/2021 Medications famotidine (PEPCID ORAL) Take by mouth if needed. Active GABAPENTIN ORAL Take 100 mg by mouth 4 (four) times a day. Active ONDANSETRON ORAL Take 4 mg by mouth if needed. 07/08/2022 Active acetaminophen (TYLENOL) 500 mg tablet Take 1 tablet (500 mg total) by mouth every 6 (six) hours if needed. Active apixaban (Eliquis) 5 mg tablet Take 1 tablet (5 mg total) by mouth 2 (two) times a day. 08/23/2022 Active chlorthalidone (HYGROTON) 25 mg tablet Take 1 tablet (25 mg total) by mouth 1 (one) time each day. Active insulin degludec (Tresiba FlexTouch U-100) 100 unit/mL (3 mL) injection pen Inject 36 Units under the skin 1 (one) time each day. 02/25/2022 Active lisinopril (PRINIVIL,ZESTRI L) 40 mg tablet Take 1 tablet (40 mg total) by mouth 1 (one) time each day. Active clopidogreL (PLAVIX) 75 mg tablet Take 1 tablet (75 mg total) by mouth 1 (one) time each day. 90 tablet 1 11/30/2024 Active evolocumab (Repatha SureClick) 140 mg/mL pen injector injectionIndicat ions:Cerebral infarction, unspecified (CMS/HCC V24, CMS/HCC V28) INJECT 1 ML INTO THE SKIN EVERY 14 DAYS 90 mL 1 02/17/2025 Active dilTIAZem CD (CARDIZEM CD) 180 mg 24 hr capsule TAKE 1 CAPSULE BY MOUTH EVERY DAY 90 capsule 1 03/16/2025 Active Active Problems Problem Noted Date Diagnosed Date Anemia due to acute blood loss 12/31/2024 Dyspnea 11/20/2024 Assessment & Plan (11/20/2024 11:52 AM EDT): Patient with worsening dyspnea, with any exertion and occasionally occurring at rest. She was seen in the emergency department with a benign workup. Her D-dimer was negative yet with the ongoing symptoms and heart rate of 97 bpm we will have her obtain a CTA to rule out PE. She will follow-up with her PCP regarding the ongoing anemia. As outlined above she will complete a nuclear stress test. She will be referred to a offset proof press operator as well. Orders: Nuclear stress test with myocardial perfusion; Future Ambulatory referral to Pulmonology; Future CT Angio Chest wo and/or w Contrast; Future CAD (coronary artery disease) 11/13/2024 Assessment & Plan (01/06/2025 8:22 AM EDT): Patient with history of coronary artery disease status post recent stenting to the RCA and LCx. She continues on Eliquis for atrial fibrillation as well as Plavix for 1 year post procedure. She denies chest discomfort. Previous reported dyspnea on exertion is improving with treatment of her anemia. Continues on Repatha and diltiazem as well. Patient advised to seek emergency medical attention by calling 911 if they were to develop severe dyspnea, chest pain that did not resolve with rest or nitroglycerin, or if they were to faint. Assessment & Plan (11/20/2024 11:52 AM EDT): Patient with history of coronary artery disease status post recent stenting to the RCA and LCx. She continues on Eliquis for atrial fibrillation as well as Plavix for 1 year post procedure. She denies chest discomfort. She reports ongoing dyspnea that is worse on exertion and has worsened over the past 3 to 4 weeks. Will update nuclear stress test. Continues on Repatha and diltiazem as well. Patient advised to seek emergency medical attention by calling 911 if they were to develop severe dyspnea, chest pain that did not resolve with rest or nitroglycerin, or if they were to faint. Orders: Nuclear stress test with myocardial perfusion; Future Melena 09/30/2024 Abnormal LFTs 09/30/2024 Gastroesophageal reflux dise ase with esophagitis without hemorrhage 09/30/2024 Carpal tunnel syndrome of right wrist 07/19/2023 Mixed hyperlipidemia 05/16/2023 Paroxysmal atrial fibrillation (CMS/HCC V24, CMS /HCC V28) 05/16/2023 Assessment & Plan (01/06/2025 8:22 AM EDT): Patient with history of paroxysmal atrial fibrillation seen on ILR. ILR implanted due to history of a stroke. She continues on diltiazem for rate control and Eliquis for stroke risk reduction. Her MYG9YV2-CEWd score is 8. She continues on 5 mg twice daily based on her age, weight and kidney function. ECG today showing NSR. Assessment & Plan (11/20/2024 11:52 AM EDT): Patient with history of paroxysmal atrial fibrillation seen on ILR. ILR implanted due to history of a stroke. She continues on diltiazem for rate control and Eliquis for stroke risk reduction. Her LGX1PI3-YLLd score is 8. She continues on 5 mg twice daily based on her age, weight and kidney function. ECG today showing NSR. Last ILR report from 11/18/2024 showing no events. Orders: ECG 12 lead Assessment & Plan (10/12/2024 11:17 AM EST): Patient with history of paroxysmal atrial fibrillation seen on ILR. ILR implanted due to history of a stroke. She continues on diltiazem for rate control and Eliquis for stroke risk reduction. She continues on 5 mg twice daily based on her age, weight and kidney function. ECG today showing NSR. Orders: ECG 12 lead Assessment & Plan (07/27/2024 10:07 AM EST): Patient with history of paroxysmal atrial fibrillation seen on ILR. ILR implanted due to history of a stroke. She continues on diltiazem for rate control and Eliquis for stroke risk reduction. She continues on 5 mg twice daily based on her age, weight and kidney function. She is tolerating the Eliquis well with no abnormal bleeding, and was educated that if she were to strike her head she would need to seek emergent medical attention. We will update an echocardiogram to rule out any diastolic or systolic dysfunction. ECG today showing normal sinus rhythm. Orders: ECG 12 lead Nuclear stress test with myocardial perfusion; Future Transthoracic echocardiogram (TTE) complete with PRN contrast, bubble, strain, and 3D order panel; Future Stenosis of right carotid artery 05/16/2023 Assessment & Plan (01/06/2025 8:22 AM EDT): History of right internal carotid artery occlusion and 50 to 69% stenosis in the left internal carotid artery from imaging in 2023. She continues on Eliquis, Plavix and Repatha. Patient should continue follow-up with vascular. Cardiomyopathy ([facility]/HCC V24, CMS/HCC V28) 2022 Cryptogenic stroke ([facility]/HCC V24, CMS/HCC V28) Spondylolisthesis of lumbar region 05/08/2022 Cerebrovascular accident (CVA) ([facility]/HCC V24, [facility] /HCC V28) 04/23/2022 SVT (supraventricular tachycardia) ([facility]/HCC V24) 04/23/2022 HLD (hyperlipidemia) 04/18/2022 Assessment & Plan (01/06/2025 8:22 AM EDT): Patient continues on Repatha. Most recent LDL cholesterol showing a level of 68. Assessment & Plan (11/20/2024 11:52 AM EDT): Patient continues on Repatha. Most recent LDL cholesterol showing a level of 68. Assessment & Plan (10/12/2024 11:17 AM EST): Patient continues on Repatha, updated lipid panel ordered. I have reviewed with the patient the importance of a heart healthy lifestyle which includes eating a low-fat low-salt diet, getting regular exercise, maintaining a healthy weight, not smoking, and following up with routine medical care. Assessment & Plan (07/27/2024 10:07 AM EST): Patient continuing on Repatha and showing great improvement in her LDL, LDL in January was 80 which is a decrease from 159 previously. She should continue on Repatha as well as following a heart healthy diet. HTN (hypertension) 04/18/2022 Assessment & Plan (01/06/2025 8:22 AM EDT): Blood pressure is well controlled today 136/70, continue on current medication regimen. Assessment & Plan (11/20/2024 11:52 AM EDT): Blood pressure is well controlled today 128/68, continue on current medication regimen. Assessment & Plan (10/12/2024 11:17 AM EST): Blood pressure is well-controlled today 128/72, continue on current antihypertensive medication regimen. Assessment & Plan (07/27/2024 10:07 AM EST): Blood pressure is well-controlled today, 120/68, continue on current antihypertensive regimen. Encounters Date Type Department Care Team Description 05/03/2025 4:04 PM EDT - 05/03/2025 11:59 PM EDT Hospital Encounter [facility] MRI [address] [place] [address] Radiculopathy of lumbar region Discharge Disposition: Home or Self Care 04/08/2025 10:29 AM EDT - 04/08/2025 11:59 PM EDT Hospital Encounter [facility] Xray [address] [place] [address] Pain in right hip Discharge Disposition: Home or Self Care 03/23/2025 6:20 PM EDT Ancillary Procedure [facility] - [address] [place] [address] 03/23/2025 12:10 PM EDT Ancillary Procedure [facility] - [address] [place] [address] 03/23/2025 Telephone [facility] - [address] [place] [address] April Nicole NP 02/26/2025 6:25 PM EDT Ancillary Procedure [facility] - [address] [place] [address] from Last 3 Months Surgical History Surgery Date Site/Laterality Comments OTHER SURGICAL HISTORY 02/13/2022 PROCEDURE: NC EGD PARTIAL/COMPL ESOPHAGOGASTRIC FUNDOPLASTY OTHER SURGICAL HISTORY PROCEDURE: NC ARTHRODESIS POSTERIOR/PSTLAT TQ 1NTRSPC LUMBAR CARDIAC CATHETERIZATION DONE ON 09/08/2024 AT [facility] INDICATIONS: Abnormal nuclear perfusion study CORONARY ANGIOPLASTY Medical History Medical History Date Comments Dizziness DX:Dizziness DM (diabetes mellitus), type 2 (CMS/HCC V24, CMS/HCC V28) DX:DM (diabetes mellitus), t ype 2 (HCC) TIA (transient ischemic attack) DX:TIA (transient ischemic attack) History of stroke DX:History of stroke Chronic back pain DX:Chronic kimberly k pain Obesity DX:Obesity John's esophagus DX:John's esophagus History of CVA (cerebrovascu lar accident) DX:History of CVA (cerebrova scular accident) Class 1 obesity DX:Class 1 obesi ty Viral gastroenteritis DX:Viral g astroenteritis Diarrhea DX:Diarrhea Hypokalemia DX:Hypokalemia Abdominal pain DX:Abdominal dee n Type 2 diabetes mellitus (CM S/HCC V24, CMS/HCC V28) DX:Type 2 diabetes mellitus (HCC) Family History Medical History Relation Name Comments Coronary artery disease Father Breast cancer Mother Relation Name Status Comments Father Mother Social History Tobacco Use Types Packs/Day Years Used Date Smoking Tobacco: Never Smokeless Tobacco: Never Tobacco Cessation:Counseling Given: Not Answered Alcohol Use Standard Drinks/Week Comments Never 0 (1 standard drink = 0.6 oz pur e alcohol) Comments Unknown Sex and Gender Information Value Date Recorded Sex Assigned at Female 08/25/2024 9:57 AM EST Legal Sex Female 10:43 AM EST Gender Identity Female 08/25/2024 9:57 AM EST Sexual Orientation Not on file Obstetrics History Last Filed Vital Signs Vital Sign Reading Time Taken Comments Blood Pressure 136/70 01/06/2025 7:38 AM EDT Pulse 90 01/06/2025 7:38 AM EDT Temperature 36.4 C (97.5 F) 12/31/2024 1:56 PM EDT Respiratory Rate 18 12/02/2024 1:16 PM EDT Oxygen Saturation 97% 01/06/2025 7:38 AM EDT Inhaled Oxygen Concentration - - Weight 89.4 kg (197 lb) 01/06/2025 7:38 AM EDT Height 162.6 cm (5' 4 ) 01/06/2025 7:38 AM EDT Body Mass Index 33.81 01/06/2025 7:38 AM EDT Plan of Treatment Upcoming Encounters Date Type Department Care Team (Late st Contact Info) Description 06/02/2025 10:20 AM EDT Office Visit [facility] [address] [place] [address] Santino Delarosa MD [address] [place] [address] [address] [place] [id number] Health Maintenance Due Date Last Done Comments Diabetes: Annual Foot Exam 1955 Diabetes: Annual Retina Eye Exam 1955 Pneumococcal Vaccine: 50+ Years (1 of 2 - PCV) 1965 Zoster Vaccines (2 of 2) 11/09/2019 09/14/2019 Falls Risk Assessment 07/28/2022 Medicare Annual Wellness Visit 07/28/2022 Social Influencers of Health Screening 07/28/2022 Depression Screening 08/19/2024 Diabetes: Blood Sugar Control Test (HGBA1C) 03/22/2025 09/22/2024 COVID-19 Vaccine ( season) 2025 06/22/2021, 11/17/2020, 10/27/2020 Influenza Vaccine (#1) 2025 , 05/23/2022, 05/08/2021, Additional history exists Diabetes: Annual GFR (Glomerular Filtration Rate) 03/01/2026 03/01/2025, 12/02/2024, 11/26/2024, Additional history exists Hypertension/CHF/CAD Annual BMP Blood Test 03/01/2026 03/01/2025, 12/02/2024, 11/26/2024, Additional history exists Diabetes: Annual Urine Albumin-Creatinine Ratio (uACR) 03/05/2026 03/05/2025, 02/15/2025, 12/16/2024 DTaP,Tdap,and Td Vaccines (2 - Td or Tdap) 04/18/2029 04/18/2019 Cholesterol Screening (Lipid Panel) 11/13/2029 11/13/2024 Osteoporosis Screening (Bone Density Screening) 08/06/2033 08/06/2023 RSV Immunization Adult Patients Completed 08/08/2023 Hepatitis C Screening Completed 12/16/2024, 025 HIB Vaccines Aged Out No longer eligi ble based on patient's age to complete this topic HPV Vaccines Aged Out No longer eligi ble based on patient's age to complete this topic Hepatitis A Vaccines Aged Out No long er eligible based on patient's age to complete this topic Hepatitis B Vaccines Aged Out No long er eligible based on patient's age to complete this topic IPV Vaccines Aged Out No longer eligi ble based on patient's age to complete this topic MMR Vaccines Aged Out No longer eligi ble based on patient's age to complete this topic Meningococcal ACWY Vaccine Aged Out N o longer eligible based on patient's age to complete this topic Meningococcal B Vaccine Aged Out No l onger eligible based on patient's age to complete this topic RSV Immunization Patients Under 20 months Aged Out No longer eligible based on patient's age to complete this topic Varicella Vaccines Aged Out No longer eligible based on patient's age to complete this topic Medical Devices Implanted Type Area Wood Cut Engraver Device Identifier Shelf Expiration Date Model / Serial / Lot Bsci-Crm [id number] Implanted:05/20 (Quantity not on file) Cardiac Loop Recorder [employer] MGMT [id number] / [id number] / Procedures Procedure Name Priority Date/Time Associated Diagnosis Comments MR LUMBAR SPINE WO CONTRAST Routine 05/03/2025 5:00 PM EDT Radiculopathy of lumbar region XR HIP 2-3 VIEWS RIGHT Routine 04/08/2025 10:43 AM EDT Pain in right hip CARDIAC DEVICE CHECK- REMOTE- MURJ Routine 03/23/2025 6:16 PM EDT CARDIAC DEVICE CHECK- REMOTE- MURJ Routine 03/23/2025 12:08 PM EDT CARDIAC DEVICE CHECK- REMOTE- MURJ Routine 02/26/2025 6:24 PM EDT BASIC METABOLIC PANEL STAT 12/02/2024 11:51 AM EDT LIPID PANEL Routine 11/13/2024 8:27 AM EDT Coronary artery disease involving [place] heart with angina pectoris, unspecified vessel or lesion type ([facility]/HCC V24) HEMOGLOBIN A1C Routine 09/22/2024 12:00 AM EST Type 2 diabetes mellitus without complications (CMS/[facility]) Interstitial cystitis (chronic) without hematuria Pain in unspecified joint Chronic fatigue, unspecified Other retention of urine MAYDA DEXA AXIAL SKELETON Routine 08/06/2023 3:34 PM EST Age-related osteoporosis without current pathological fracture from Last 3 Months or Most Recently Relevant to Health Maintenance Results * MR Lumbar Spine wo Contrast (05/03/2025 5:00 PM EDT) Anatomical Region Laterality Modality L-spine, Spine Magnetic Resonan ce 05/05/2025 9:38 AM EDT Impressions 05/05/2025 10:06 AM EDT Postsurgical changes at L4-5. Large inferiorly projecting right central extrusion at L2-3 with significant narrowing of the lateral recess and impingement of the right L3 nerve root. -------- FINAL REPORT -------- Dictated By: Eddie Dywer Dictated Date: 05/05/2025 09:38 ET Assigned Physician: Eddie Dwyer Reviewed and Electronically Signed By: Eddie Dwyer Signed Date: 05/05/2025 10:06 ET Workstation ID: [id number] Transcribed By: Self Edit Transcribed Date: 05/05/2025 [...] Signed Date: 05/05/2025 10:06 ET Workstation ID: [id number] Transcribed By: Self Edit Transcribed Date: 05/05/2025 09:38 ET Criss BESS IMTim MRI PROCEDURES Final Res ult * XR Hip 2-3 Views Right (04/08/2025 10:43 AM EDT) Anatomical Region Laterality Modality Lower Extremities, Hip Right Radiograp hic Imaging 04/08/2025 10:5 0 AM EDT Impressions 04/08/2025 10:53 AM EDT No acute findings. 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 The patient is seen to have undergone previous posterior fixation surgery in the lower lumbar spine. Code 77688 -------- FINAL REPORT -------- Dictated By: Jacoby Chavez Dictated Date: 04/08/2025 10:50 ET Assigned Physician: Jacoby Chavez Reviewed and Electronically Signed By: Jacoby Chavez Signed Date: 04/08/2025 10:53 ET Workstation ID: [id number] Transcribed By: Self Edit Transcribed Date: 04/08/2025 10:50 ET Narrative 04/08/2025 10:53 AM EDT HISTORY: The patient is a 79-year-old female with right hip pain. No history of trauma is provided. FINDINGS: AP radiograph of the pelvis, along with coned-down AP and external rotation-abduction views of the right hip, are obtained. The study demonstrates no fracture, dislocation, or osteolytic or osteoblastic lesion. There is mild narrowing of the hip joint spaces bilaterally with minimal marginal osteophyte formation consistent with very mild osteoarthritis. The patient is seen to have undergone previous posterior fusion in the lower lumbar spine. Atherosclerotic arterial calcification is noted. Procedure Note Jacoby Chavez MD - 04/08/2025 HISTORY: The patient is a 79-year-old female with right hip pain. Nohistory of trauma is provided. FINDINGS: AP radiograph of the pelvis, along with coned-down AP andexternal rotation-abduction views of the right hip, are obtained. Thestudy demonstrates no fracture, dislocation, or osteolytic or osteoblasticlesion. There is mild narrowing of the hip joint spaces bilaterally withminimal marginal osteophyte formation consistent with very mildosteoarthritis. The patient is seen to have undergone previous posteriorfusion in the lower lumbar spine. Atherosclerotic arterial calcification is noted. IMPRESSION: No acute findings. 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 Thepatient is seen to have undergone previous posterior fixation surgery inthe lower lumbar spine. Code 41527 -------- FINAL REPORT -------- Dictated By: Jacoby Chavez Dictated Date: 04/08/2025 10:50 ET Assigned Physician: Jacoby Chavez Reviewed and Electronically Signed By: Jacoby Chavez Signed Date: 04/08/2025 10:53 ET Workstation ID: [id number] Transcribed By: Self Edit Transcribed Date: 04/08/2025 10:50 ET us Criss BESS IMG XR PROCEDURES Final Resu lt * Cardiac device check - Remote- MURJ (03/23/2025 6:16 PM EDT) Only the most recent of3 resultswithin the time period is included. Date Time Interrogation Session [id number] CV DEVICE CHECK Type Interrogation Session Remote Device Initiated CV DEVICE CHECK Implantable Pulse Generator Wood Cut Engraver BSX CV DEVICE CHECK Implantable Pulse Generator Type ILR CV DEVICE CHECK Implantable Pulse Generator Model M301 CV DEVICE CHECK Implantable Pulse Generator Serial Number [id number] CV DEVICE CHECK Implantable Pulse Generator Implant Date [id number] CV DEVICE CHECK Battery Status Beginning of Service CV DEVICE CHECK Atrial Tachy Statistic AT/AF [place] Percent 1.00 CV DEVICE CHECK Date of Service 2025-04-05 CV DEVICE CHECK Anatomical Region Laterality Modality Device Interroga tion 03/17/2025 1:08 AM EDT Impressions 03/23/2025 3:47 PM EDT Normal Remote: With Events * Events or Alerts: 1 False AF episode noted which was isolated PVC's * This is a normal remote diagnostic device check * Battery data was reviewed * Battery status: GABRIELE, * Presenting rhythm reviewed * Heart Rate Histograms reviewed Narrative Procedure Note Carmelo Nowak MD - 03/23/2025 IMPRESSION: Normal Remote: With Events * Events or Alerts: 1 False AF episode noted which was isolated PVC's * This is a normal remote diagnostic device check * Battery data was reviewed * Battery status: GABRIELE, * Presenting rhythm reviewed * Heart Rate Histograms reviewed Carmelo Nowak MD CV IMPLANTABLE CARDIAC DEVICE PROCEDURES Final Result * (ABNORMAL) Basic metabolic panel (12/02/2024 11:51 AM EDT) Sodium 138 133 - 145 mmol/L LAB CHEMISTRY METHOD 12/02/2024 12:33 PM [facility] Potassium 3.8 3.5 - 5.5 mmol/L LAB CHEMISTRY METHOD 12/02/2024 12:33 PM [facility] Chloride 103 96 - 110 mmol/L LAB CHEMISTRY METHOD 12/02/2024 12:33 PM [facility] CO2 28 21 - 32 mmol/L LAB CHEMISTRY METHOD 12/02/2024 12:33 PM [facility] Anion Gap 7 3 - 11 LAB CHEMISTRY METHOD 12/02/2024 12:33 PM [facility] Glucose 93 70 - 100 mg/dL LAB CHEMISTRY METHOD 12/02/2024 12:33 PM [facility] BUN 23 5 - 25 mg/dL LAB CHEMISTRY METHOD 12/02/2024 12:33 PM [facility] Creatinine 1.27(H) 0.50 - 1.10 mg/dL LAB CHEMISTRY METHOD 12/02/2024 12:33 PM EDT [facility] eGFR 43(L) >=60 mL/min/1. 73m2 LAB CHEMISTRY METHOD 12/02/2024 12:33 PM EDT [facility] Comment:Calculation based on the Chronic Kidney Disease Epidemiology Collaboration (CKD-EPI) equation refit without adjustment for race. BUN/Creatinine Ratio 18.1 LAB CHEMISTRY METHOD 12/02/2024 12:33 PM EDT [facility] Calcium 9.9 8.5 - 10.5 mg/dL LAB CHEMISTRY METHOD 12/02/2024 12:33 PM EDT [facility] Blood Venous blood specimen / Unknown Venipuncture / Unknown 12/02/2024 11:51 AM EDT 12/02/2024 12:00 PM EDT Dandre Salas DO LAB BLOOD ORDERABLES Final Result Performing Organization Address City/State/[facility] Co de Phone Number [facility] [address] [place] [address], [place] [phone] * (ABNORMAL) Lipid panel (11/13/2024 8:27 AM EDT) Cholesterol Total 138 100 - 199 mg/dL [facility] Triglycerides 158(H) 0 - 149 mg/dL [facility] HDL Cholesterol 43 >39 mg/dL [facility] VLDL Cholesterol Calculated 27 5 - 40 mg/dL [facility] LDL Chol Calc (NIH) 68 0 - 99 mg/dL [facility] Blood Venous blood specimen / Unknown 11/13/2024 8:27 AM EDT 11/13/2024 Narrative [facility] - 11/13/2024 11:06 PM EDT Performed at: 01 - [facility] [id number] Milling Machine Set Up Operator: Nikki Valle MD, Phone: [phone] Kelly Malone BOARD [employer]URNER LAB BLOOD ORDERABLES Final Res ult Performing Organization Address City/[facility]/ZIP Co de Phone Number [facility] * Hemoglobin A1c (09/22/2024 12:00 AM EST) Hemoglobin A1C 5.3 <6.5 % LAB CHEMISTRY METHOD 09/23/2024 12:41 PM EST [facility] Mean Bld Glu Estim. 105 mg/dL LAB CHEMISTRY METHOD 09/23/2024 12:41 PM EST [facility] Blood Venous blood specimen / Unknown 09/22/2024 09/22/2024 6:27 PM EST Gabino BESS LAB BLOOD ORDERABLES Final Res ult Performing Organization Address [facility]/ZIP Co de Phone Number [facility] [address] [place] [address], * MAYDA DEXA AXIAL SKELETON (08/06/2023 3:34 PM EST) Anatomical Region Laterality Modality Mammography 08/06/2023 1:47 PM EST Narrative 08/06/2023 3:34 PM EST [facility] Diagnostic Imaging Department [address] [place] [id number] Patient: BAOBRITNISTARR /Age/Sex: 1945 - 78 - F Unit#: [id number] Location/Status: SPDIMA/REG CLI Mnemonic/Ordering Site: MAMDEXAAX/SPMAM Ordering Physician: MYLES MAGALLANES MD [facility] Dexa Axial Skeleton - 08/06/236 Report Status:Signed History: Low estrogen state due to menopause. Personal history of fracture. Findings: Bone densitometry is performed utilizing dual energy x-ray absorptiometry (DXA) in the [employer] unit. The lumbar spine and proximal femora are evaluated in the AP projection. The FRAX questionaire was completed. The results indicate osteoporosis, with a left femoral neck T-score of -2.7. The Z score is -1.5, indicating low bone mineral density for age. The detailed DEXA report will be mailed to the referring physician's office. DualFemur FRAX: 10-year Probability of Fracture: Major Osteoporotic 25.1 percent Hip 7.8 percent. IMPRESSION: Osteoporosis. [id number] Dictating Physician: DANIELA KHAN MD Electronically Signed by: DANIELA KHAN MD Dic Date/Time: 08/06/231533 Sign date/Time: 08/06/231533 Procedure Note Daniela Khan MD - 09/24/2023 [facility] Diagnostic Imaging Department [address] [place] [address] Patient: STARR HOBBSO.B./Age/Sex: 1945 - 78 - F Unit#: [id number] Location/Status: SPDIMAM/REG CLI Mnemonic[facility] Ordering Physician: MYLES MAGALLANES MD Mayda Dexa Axial Skeleton - 08/06/23 - 1409 Report Status:Signed History: Low estrogen state due to menopause. Personal history offracture. Findings: Bone densitometry is performed utilizing dual energy x-ray absorptiometry(DXA) in the Telvent GitigFévrier 46 unit. The lumbar spine and proximal femora areevaluated in the AP projection. The FRAX questionaire was completed. The results indicate osteoporosis, with a left femoral neck T-score of-2.7. The Z score is -1.5, indicating low bone mineral density for age. Thedetailed DEXA report will be mailed to the referring physician's office. DualFemur FRAX: 10-year Probability of Fracture: Major Osteoporotic 25.1 percent Hip 7.8 percent. IMPRESSION: Osteoporosis. [id number] Dictating Physician: DANIELA KHAN MD Electronically Signed by: DANIELA KHAN MD Dic Date/Time: 08/06/231533 Sign date/Time: 08/06/231533 Myles Magallanes MD IMG BI PROCEDURES Final Res ult from Last 3 Months or Most Recently Relevant to Health Maintenance Insurance [facility]ARE [facility] Care Teams Sales Promotion Officer Relationship Specialty Start Date End Date Gabino Hayward PA [address] [place] [id number] PCP - General Primary Care 12/10/24
--- OUTSIDE RECORDS SUMMARY | 2025-05-07 14:15 | XMS_ITS | Clinical Summary ---
Author Organization [facility] Address [address] [place] [address] Care Team Providers Care Terminal Superintendent Name Role Phone Cm Magallanes Primary Care Provider Allergies Active Allergy Reactions Criticality Noted Date Comments Dulaglutide Diarrhea 05/31/2022 Exenatide Nausea 05/31/2022 Metformin Nausea 05/31/2022 Rosuvastatin Unknown 05/31/2022 Sertraline Nausea 05/31/2022 Simvastatin Unknown 05/31/2022 Medications aspirin 81 mg capsule Take 81 mg by mouth once a day. Active predniSONE (DELTASONE) 5 mg tablet Take 5 mg by mouth once a day. 1-2 tablets once a day Active lisinopriL (PRINIVIL,ZESTR IL) 40 mg tablet Take 40 mg by mouth once a day. Active clopidogreL (PLAVIX) 75 mg tablet Take 75 mg by mouth once a day. Active metoprolol succinate XL (TOPROL XL) 25 mg tablet Take 25 mg by mouth once a day. Active morphine IR 15 mg tablet Take 15 mg by mouth once a day. Active insulin degludec (Tresiba FlexTouch U-100) 100 unit/mL (3 mL) insulin pen Inject 38 Units under the skin once a day. Active chlorthalidone (HYGROTEN) 25 mg tablet Take 12.5 mg by mouth once a day. Active acetaminophen (TYLENOL) 500 mg tablet Take 500 mg by mouth 2 times a day. Active Active Problems Problem Noted Date Diagnosed Date Neck pain 03/31/2015 Cervical radiculopathy 03/31/2015 Cervical postlaminectomy syndrome 03/31/2015 Social History Tobacco Use Types Packs/Day Years Used Date Smoking Tobacco: Former Smokeless Tobacco: Never Tobacco Cessation:Counseling Given: Not Answered Comments:: Comments Unknown Sex and Gender Information Value Date Recorded Sex Assigned at Not on file Legal Sex Female 6:49 PM EDT Gender Identity Not on file Sexual Orientation Not on file Last Filed Vital Signs Vital Sign Reading Time Taken Comments Blood Pressure 143/83 05/31/2022 9:34 AM EDT Pulse 89 05/31/2022 9:34 AM EDT Temperature 36.7 C (98.1 F) 05/31/2022 9:34 AM EDT Respiratory Rate 16 05/31/2022 9:34 AM EDT Oxygen Saturation 98% 05/31/2022 9:34 AM EDT Inhaled Oxygen Concentration - - Weight 92.1 kg (203 lb) 05/31/2022 9:34 AM EDT Height 162.6 cm (5' 4 ) 05/31/2022 9:34 AM EDT Body Mass Index 34.84 05/31/2022 9:34 AM EDT Plan of Treatment Health Maintenance Due Date Last Done Comments Hepatitis C Screening 1945 Medicare AWV 1946 DTaP,Tdap,and Td Vaccines (1 - Tdap) 1968 CT Lung Cancer Screening (Baseline) 1996 Osteoporosis Screening 1996 Pneumococcal Vaccine: 50+ Years (1 of 1 - PCV) 1996 Zoster Vaccines (2 of 2) 11/09/2019 09/14/2019 RSV Vaccine (60+ years old and patients) (1 - 1-dose 75+ series) 2021 Alcohol/Substance Use Screening 08/19/2024 Depression Screening and Follow-Up 08/19/2024 Health Care Proxy Review 08/19/2024 Social Drivers of Health Annual Screening 08/19/2024 COVID-19 Vaccine (4 - 2024-2 6 season) 2025 06/22/2021, 11/17/2020, 10/27/2020 Influenza Vaccine (#1) 2025 04/19/2013 Hepatitis B Vaccines Aged Out No long er eligible based on patient's age to complete this topic Insurance MEDICARE [facility] Care Teams Terminal Superintendent Relationship Specialty Start Date End Date Cm Magallanes [address] [place] [id number] PCP - General 03/07/17
--- NOTE | 2025-05-07 15:43 | A.OFFVIS_ITS ---
Intake Visit Reasons: LBP/MRI f/u Allergies exenatide (From Byetta) Allergy (Verified 05/14/24 10:26) Nausea metformin (From Glucophage) Allergy (Verified 05/14/24 10:26) Nausea rosuvastatin (From Crestor) Allergy (Verified 05/14/24 10:26) Nausea sertraline (From Zoloft) Allergy (Verified 05/14/24 10:26) Nausea simvastatin (From Zocor) Allergy (Verified 05/14/24 10:26) Nausea PFSH Medical History Cryptogenic stroke SVT (supraventricular tachycardia) Cardiomyopathy Mixed hyperlipidemia Stenosis of right carotid artery Paroxysmal atrial fibrillation Postoperative nausea Back pain Elevated cholesterol Arthritis GERD (gastroesophageal reflux disease) Depression TIA (transient ischemic attack) CVA (cerebral vascular accident) HTN (hypertension) Diabetes Arthritis Surgical History History of loop recorder Hx of cervical discectomy History of total replacement of both shoulder joints History of total bilateral knee replacement History of esophagogastroduodenoscopy (EGD) H/O colonoscopy Hx of cholecystectomy Hx of carpal tunnel repair Hx of section History of back surgery Social History Are you a primary patient care representative to a significant other at home: No Do you presently have visiting nurse or other home services: No Patient Tobacco Use Status: Former Tobacco user Tobacco use type: Cigarette Years Smoked: 3 Assessment & Plan Assessment & Plan (1) Lumbar disc herniation: Code(s): M51.26 - Other intervertebral disc displacement, lumbar region Category: Medical Plan Mrs Braxton is here in follow-up. She is a patient known to us from an L4-5 oblique lumbar interbody fusion done years ago, had a left L2-3 far-lateral diskectomy done last year with excellent results. She was in the middle of a gout flare-up over the summer and had a fall. Sometime about 2 or 3 months ago she noticed pain starting from her back radiating around to her anterior groin going down the front of her thigh. She was having a very hard time walking. The pain was so severe and felt like a lightening bolt shooting down her leg. Because of her previous history of lumbar spine issues, she thought it might be a herniated disc. She saw her primary doctor. She was trialed on a number of different medications including oxycodone, tramadol but she was not able to tolerate these. She has tried gabapentin which she remains on. She was started on steroids in his been on these for 2 or 3 weeks and that seems to be helping out quite a bit. She has intense pain whenever she has weaned off it though. Her primary physician is going to wean her down off this soon. She is very frustrated because she can not walk. To complicate things, she had a stent done in 2 separate areas of her heart in August and has been on dual antiplatelet therapy since that time consisting of Plavix and aspirin. She is supposed to stand at 1 year for endothelialization of the stent. She is followed at [facility]. She is also on Eliquis for intermittent AFib. On exam she is very uncomfortable, has a hard time walking. She has some weakness in her hip flexion which I would rate as 3/5. She has positive straight leg raise at 20 degrees. Distal lower extremity strength is full. She has a well healed scars on her back. Her lumbar MRI done at [facility] just a few days ago shows postsurgical changes at L4-5, she has a large herniated disc fragment at L2-3 which descends down behind the L3 vertebral body. Dr. Tucker and I reviewed the films together, in any other situation we think she would be a good candidate for a microdiskectomy, however in light of the issue with the heart stents and the dual antiplatelet therapy, she will need to have some kind of clearance note from her drop hammer pile driver operator to say that it is safe to stop these things. Dr. Tucker did feel as though would be okay to keep her on a baby aspirin during surgery, but she would need to stop the Plavix 10-14 days out from surgery. She would stop the Eliquis 3-4 days out from surgery. Without some kind of risks profile or understanding better if the we can do this safely, we can not proceed. She is going to see her drop hammer pile driver operator in the next week or 2 and will talk to him about it. If it is not safe, obviously we can wait until she can come off the platelet therapies before considering surgery. She will contact our office and let us know what happens during the cardiology visit. We also talked about getting off prednisone as it is complication risk for surgery causing issues with wound healing and infection. Total amount of time spent in this visit was 20 minutes in discussion of symptoms, lumbar MRI imaging results and subsequent plan of care Fredrick Tucker MD,PhD [facility] Coding Level of Care Code Est Pt Level 3 (78189) Diagnoses Lumbar disc herniation M51.26
== END 2025-05-07 16:04 | disposition home or self-care (01) ==
PROVIDERS: PCP Internal Medicine; Visit Provider Physician Assistant
DX: M51.26 Other intervertebral disc displacement, lumbar region (principal)
CPT/HCPCS: 99213

== ENCOUNTER → 2025-05-07 14:12 | Outpatient (BNVA) | payer MEDICARE, OTHER, SELFPAY | PROVIDERS: PCP Internal Medicine; Visit Provider Physician Assistant | DX: M51.26 Other intervertebral disc displacement, lumbar region (principal) | CPT/HCPCS: 99212 ==

== ENCOUNTER 2025-07-22 09:24 | Day surgery (SDC) | payer MEDICARE, OTHER, SELFPAY ==
--- OUTSIDE RECORDS SUMMARY | 2024-07-23 10:45 | XMS_ITS ---
Author Organization [facility], [place] Address [address] [facility] [address] [place] [address] Care Team Providers Care Assistant Athletic Trainer Name Role Phone Migration, Provider Unavailable Unavailable REASON FOR VISIT Follow-up Appt Encounters Encounter Location Date Provider Diagnosis [facility], [address] [place] [phone] 07/23/2024 Provider Migration Plan Of Treatment No Information Progress Notes * SINA HOBBSDOB:[birth year] (80 yo F)Acc No.[id number]:07/23/2024 Progress Notes Patient: SINA HONG Provider: Xavier Yañez :1945 A ge:79 Y S ex:Female Date:07/23/2024 Address:[address] [place], [place] [phone] Subjective: * Chief Complaints: * F ollow-up Appt * Ocular Surgical History: Objective: Vision Examination: * Electronic signature of Prov ider Migration on 06/15/2025 at 02:25 PM EDT Sign off status: Pending * Provider: Xavier decker Migration Date: 09/23/2023 Generated for Armond hudson/Lucina/eTransmitting on: 1 02:25 PM EDT
--- OUTSIDE RECORDS SUMMARY | 2024-08-25 06:30 | XMS_ITS ---
Author Organization [facility], [place] Address [address] [facility] [address] [place] [address] Care Team Providers Care Nutrition Partner Name Role Phone Migration, Provider Unavailable Unavailable REASON FOR VISIT Follow-up Appt Encounters Encounter Location Date Provider Diagnosis [facility], [address] [place] [phone] 08/25/2024 Provider Migration Plan Of Treatment No Information Progress Notes * SINA HOBBSDOB:[birth year] (80 yo F)Acc No.[id number]:08/25/2024 Progress Notes Patient: SINA HONG Provider: Xavier Yañez :1945 A ge:79 Y S ex:Female Date:08/25/2024 Address:[address] [place], [place] [phone] Subjective: * Chief Complaints: * F ollow-up Appt * Ocular Surgical History: Objective: Vision Examination: * Electronic signature of Prov ider Migration on 06/15/2025 at 02:23 PM EDT Sign off status: Pending * Provider: Xavier decker Migration Date: 0 08/25/2024 Generated for Armond hudson/Lucina/eTransmitting on: 1 02:23 PM EDT
--- OUTSIDE RECORDS SUMMARY | 2024-09-01 11:30 | XMS_ITS ---
Author Organization [facility], [place] Address [address] [facility] [address] [place] [address] Care Team Providers Care Consultant Name Role Phone Migration, Provider Unavailable Unavailable REASON FOR VISIT Follow-up Appt Encounters Encounter Location Date Provider Diagnosis [facility], [address] [place] [phone] 09/01/2024 Provider Migration Plan Of Treatment No Information Progress Notes * SINA HOBBSDOB:[birth year] (80 yo F)Acc No.[id number]:09/01/2024 Progress Notes Patient: SINA HONG Provider: Xavier Yañez :1945 A ge:79 Y S ex:Female Date:09/01/2024 Address:[address] [place], [place] [phone] Subjective: * Chief Complaints: * F ollow-up Appt * Ocular Surgical History: Objective: Vision Examination: * Electronic signature of Prov ider Migration on 06/15/2025 at 02:23 PM EDT Sign off status: Pending * Provider: Xavier decker Migration Date: 0 09/01/2024 Generated for Armond hudson/Lucina/eTransmitting on: 1 02:23 PM EDT
--- OUTSIDE RECORDS SUMMARY | 2024-09-01 11:30 | XMS_ITS ---
Author Organization [facility], [place] Address [address] [facility] [address] [place] [address] Care Team Providers Care Tooth Grinder Name Role Phone Gabino Hayward Unavailable [phone] REASON FOR VISIT Follow-up Appt Encounters Encounter Location Date Provider Diagnosis [facility], [address] [place] [phone] 09/01/2024 Gabino Hayward Plan Of Treatment No Information Progress Notes * SINA HOBBSDOB:[birth year] (80 yo F)Acc No.[id number]:09/01/2024 Progress Notes Patient: SINA HONG Provider: Raven BESS :1945 A ge:79 Y S ex:Female Date:09/01/2024 Address:[address] [place] [address] Subjective: * Chief Complaints: * F ollow-up Appt * Ocular Surgical History: Objective: Vision Examination: * Electronic signature of Boo Hayward PA-C on 06/15/2025 at 02:26 PM EDT Sign off status: Pending * Provider: Raven BESS Date: 0 09/01/2024 Generated for Armond hudson/Lucina/eTransmitting on: 1 02:26 PM EDT
--- OUTSIDE RECORDS SUMMARY | 2024-09-22 06:30 | XMS_ITS ---
Author Organization [facility], [place] Address [address] [facility] [address] [place] [address] Care Team Providers Care Stocking Inspector Name Role Phone Migration, Provider Unavailable Unavailable REASON FOR VISIT Sick Visit Encounters Encounter Location Date Provider Diagnosis [facility], [address] [place] [phone] 09/22/2024 Provider Migration Plan Of Treatment No Information Progress Notes * SINA HOBBSDOB:[birth year] (80 yo F)Acc No.[id number]:09/22/2024 Progress Notes Patient: SINA HONG Provider: Xavier Yañez :1945 A ge:79 Y S ex:Female Date:09/22/2024 Address:[address] [place], [place] [phone] Subjective: * Chief Complaints: * S ick Visit * Ocular Surgical History: Objective: Vision Examination: * Electronic signature of Prov ider Migration on 06/15/2025 at 02:24 PM EDT Sign off status: Pending * Provider: Xavier decker Migration Date: 0 09/22/2024 Generated for Armond hudson/Lucina/eTransmitting on: 1 02:24 PM EDT
--- OUTSIDE RECORDS SUMMARY | 2024-10-06 10:15 | XMS_ITS ---
Author Organization [facility], [place] Address [address] [facility] [address] [place] [address] Care Team Providers Care Insurance Broker Name Role Phone Migration, Provider Unavailable Unavailable REASON FOR VISIT Follow-up Appt Encounters Encounter Location Date Provider Diagnosis [facility], [address] [place] [phone] 10/06/2024 Provider Migration Plan Of Treatment No Information Progress Notes * SINA HOBBSDOB:[birth year] (80 yo F)Acc No.[id number]:10/06/2024 Progress Notes Patient: SINA HONG Provider: Xavier Yañez :1945 A ge:79 Y S ex:Female Date:10/06/2024 Address:[address] [place], [place] [phone] Subjective: * Chief Complaints: * F ollow-up Appt * Ocular Surgical History: Objective: Vision Examination: * Electronic signature of Prov ider Migration on 06/15/2025 at 02:24 PM EDT Sign off status: Pending * Provider: Xavier decker Migration Date: 0 10/06/2024 Generated for Armond hudson/Lucina/eTransmitting on: 1 02:24 PM EDT
--- OUTSIDE RECORDS SUMMARY | 2024-10-06 10:15 | XMS_ITS ---
Author Organization [facility], [place] Address [address] [facility] [address] [place] [address] Care Team Providers Care External Relations Director Name Role Phone Gabino Hayward Unavailable [phone] REASON FOR VISIT Follow-up Appt Encounters Encounter Location Date Provider Diagnosis [facility], [address] [place] [phone] 10/06/2024 Gabino Hayward Plan Of Treatment No Information Progress Notes * SINA HOBBSDOB:[birth year] (80 yo F)Acc No.[id number]:10/06/2024 Progress Notes Patient: SINA HONG Provider: Raven BESS :1945 A ge:79 Y S ex:Female Date:10/06/2024 Address:[address] [place], [place] [phone] Subjective: * Chief Complaints: * F ollow-up Appt * Ocular Surgical History: Objective: Vision Examination: * Electronic signature of Boo Hayward PA-C on 06/15/2025 at 02:26 PM EDT Sign off status: Pending * Provider: Raven BESS Date: 0 10/06/2024 Generated for Armond hudson/Lucina/eTransmitting on: 1 02:26 PM EDT
--- OUTSIDE RECORDS SUMMARY | 2024-10-09 05:30 | XMS_ITS ---
Author Organization [facility], [place] Address [address] [facility] [address] [place] [address] Care Team Providers Care Gang Drill Operator Name Role Phone Gabino Hayward Unavailable [phone] REASON FOR VISIT Follow-up Appt Encounters Encounter Location Date Provider Diagnosis [facility], [address] [place] [phone] 10/09/2024 Gabino Hayward Plan Of Treatment No Information Progress Notes * SINA HOBBSDOB:[birth year] (80 yo F)Acc No.[id number]:10/09/2024 Progress Notes Patient: SINA HONG Provider: Raven BESS :1945 A ge:79 Y S ex:Female Date:10/09/2024 Address:[address] [place], [place] [phone] Subjective: * Chief Complaints: * F ollow-up Appt * Ocular Surgical History: Objective: Vision Examination: * Electronic signature of Boo Hayward PA-C on 06/15/2025 at 02:22 PM EDT Sign off status: Pending * Provider: Raven BESS Date: 0 10/09/2024 Generated for Armond hudson/Lucina/eTransmitting on: 1 02:22 PM EDT
--- OUTSIDE RECORDS SUMMARY | 2024-12-02 06:00 | XMS_ITS ---
Author Organization [facility], [place] Address [address] [facility] [address] [place] [address] Care Team Providers Care Building Code Inspector Name Role Phone Gabino Hayward Unavailable [phone] REASON FOR VISIT Follow-up Appt Encounters Encounter Location Date Provider Diagnosis [facility], [address] [place] [phone] 12/02/2024 Gabino Hayward Plan Of Treatment No Information Progress Notes * SINA HOBBSDOB:[birth year] (80 yo F)Acc No.[id number]:12/02/2024 Progress Notes Patient: SINA HONG Provider: Raven BESS :1945 A ge:79 Y S ex:Female Date:12/02/2024 Address:[address] [place], [place] [phone] Subjective: * Chief Complaints: * F ollow-up Appt * Ocular Surgical History: Objective: Vision Examination: * Electronic signature of Boo Hayward PA-C on 06/15/2025 at 02:25 PM EDT Sign off status: Pending * Provider: Raven BESS Date: 0 12/02/2024 Generated for Armond hudson/Lucina/eTransmitting on: 1 02:25 PM EDT
--- OUTSIDE RECORDS SUMMARY | 2024-12-09 11:00 | XMS_ITS ---
Author Organization [facility], [place] Address [address] [facility] [address] [place] [address] Care Team Providers Care Telecommunications Administrator Name Role Phone Gabino Hayward Unavailable [phone] REASON FOR VISIT Follow-up Appt Encounters Encounter Location Date Provider Diagnosis [facility], [address] [place] [phone] 12/09/2024 Gabino Hayward Plan Of Treatment No Information Progress Notes * SINA HOBBSDOB:[birth year] (80 yo F)Acc No.[id number]:12/09/2024 Progress Notes Patient: SINA HONG Provider: Raven BESS :1945 A ge:79 Y S ex:Female Date:12/09/2024 Address:[address] [place], [place] [phone] Subjective: * Chief Complaints: * F ollow-up Appt * Ocular Surgical History: Objective: Vision Examination: * Electronic signature of Boo Hayward PA-C on 06/15/2025 at 02:26 PM EDT Sign off status: Pending * Provider: Raven BESS Date: 0 12/09/2024 Generated for Armond hudson/Lucina/eTransmitting on: 1 02:26 PM EDT
--- OUTSIDE RECORDS SUMMARY | 2025-05-19 09:30 | XMS_ITS ---
Author Organization [facility] Address [address] [place] [address] Care Team Providers Care Photoengraving Photographer Name Role Phone Criss Chucrhill Unavailable [phone] Encounters Encounter Location Date Provider Diagnosis [facility] [address] [place] [address] 05/19/2025 Criss Churchill Plan Of Treatment Next Appt Details Provider Name:Criss dumont, 06/22/2025 11:00:00 AM, [address], [address], [place], [address], Progress Notes * Starr BRAXTONDOB:[birth year] (80 yo F)Acc No.[id number]:05/19/2025 Progress Notes Patient: Starr HONG Provider: Kimberly Churchill PA-C :1945 A ge:80 Y S ex:Female Date:05/19/2025 Address:[address] [place], [place] Subjective: * Chief Complaints: * * Medical History: Objective: * Vitals: Assessment: Plan: * Treatment: * Images: Billing Information: * Visit Code: * Procedure Codes: Care Plan Details* * Electronic signature of Zita Churchill PA-C on 06/15/2025 at 02:23 PM EDT Sign off status: Pending * Provider: Kimberly Churchill PA-C Date: Generated for Armond hudson/Lucina/eTransmitting on: 1 02:23 PM EDT
--- OUTSIDE RECORDS SUMMARY | 2025-06-09 09:15 | XMS_ITS ---
Author Organization [facility] [address] Address [address] [place] [address] Care Team Providers Care Bait Man Name Role Phone AnaHolland caraballoCriss Unavailable [phone] CECILE OKEEFE [phone] REASON FOR VISIT hetal 3 Encounters Encounter Location Date Provider Diagnosis [facility] [address] [place] [address] 06/09/2025 CECILE OKEEFE Plan Of Treatment Next Appt Details Provider Name:Criss dumont, 06/22/2025 11:00:00 AM, [address], [address], [place], [address], Progress Notes * Starr BRAXTONDOB:[birth year] (80 yo F)Acc No.[id number]:06/09/2025 Progress Note Patient: Starr HONG Provider: Anam Okeefe MD :1945 A ge:80 Y S ex:Female Date:06/09/2025 [address] [place] Subjective: * Chief Complaints: * 1 . Hetal 3. * Medical History: Objective: * Vitals: Assessment: Plan: * Treatment: Care Plan: * Problems: * Images: Billing Information: * Visit Code: * Procedure Codes: Care Plan Details* * Electronic signature of GREG OKEEFE MD on 06/15/2025 at 02:22 PM EDT Sign off status: Pending * Provider: Anam Okeefe MD Date: 1 Generated for Armond hudson/Lucina/Eldaitting on: 1 02:22 PM EDT
--- OUTSIDE RECORDS SUMMARY | 2025-06-10 09:50 | XMS_ITS | Encounter Summary ---
Author Organization [facility] Address [address] [place] [address] Care Team Providers Care Flight Operations Manager Name Role Phone Finn Okeefe MD Primary Care Provider [phone] Encounter Details Date Type Department Care Team (Late st Contact Info) Description 06/10/2025 9:50 AM EDT Ancillary Procedure [facility] [address] [facility] [address] [place] [address] Social History Tobacco Use Types Packs/Day Years [...] Care Team (Late st Contact Info) Description 07/29/2025 1:10 PM EST Consult [facility] [address] [facility] [address] [place] [address] April Nicole NP [address] [place] [address] [place] [address] documented as of this encounter Procedures Procedure Name Priority Date/Time Associated Diagnosis Comments CARDIAC DEVICE CHECK- REMOTE- MURJ Routine 06/10/2025 9:46 AM EDT documented in this encounter Results * Cardiac device check - Remote- MURJ (06/10/2025 9:46 AM EDT) Date Time Interrogation Session [id number] CV DEVICE CHECK Type Interrogation Session Remote Device Initiated CV DEVICE CHECK Implantable Pulse Generator Finish Mixer BSX CV DEVICE CHECK Implantable Pulse Generator Type ILR CV DEVICE CHECK Implantable Pulse Generator Model M301 CV DEVICE CHECK Implantable Pulse Generator Serial Number [id number] CV DEVICE CHECK Implantable Pulse Generator Implant Date 20220608 CV DEVICE CHECK Battery Status Recommended Replacement Time CV DEVICE CHECK Atrial Tachy Statistic AT/AF [place] Percent 1.00 CV DEVICE CHECK Date of Service 2025-06-18 CV DEVICE CHECK Anatomical Region Laterality Modality Device Interroga tion 06/09/2025 12:3 0 AM EDT Impressions 06/10/2025 9:41 AM EDT Low Battery Indicator * Low battery condition met and device replacement indicator triggered * Current battery status: TEXTILE CONVERTER, * Message sent in TELOS to schedule patient for ILR removal talk Narrative Procedure Note April Nicole, MUSTAPHA - 06/10/2025 IMPRESSION: Low Battery Indicator * Low battery condition met and device replacement indicator triggered * Current battery status: TEXTILE CONVERTER, * Message sent in TELOS to schedule patient for ILR removal talk April Nicole ROUTE DRIVER CV IMPLANTABLE CARDIAC DEVIC E PROCEDURES Final Result documented in this encounter Visit Diagnoses Not on filedocumented in this encounter Care Teams Flight Operations Manager Relationship Specialty Start Date End Date Finn Okeefe MD [address] [place] [address] PCP - General Internal Medicine 06/02/25 documented as of this encounter
--- OUTSIDE RECORDS SUMMARY | 2025-06-10 11:30 | XMS_ITS | Encounter Summary ---
Author Organization [facility] Address [address] [place] [address] Care Team Providers Care Technical Engineer Name Role Phone Finn Okeefe MD Primary Care Provider [phone] Encounter Details Date Type Department Care Team (Late st Contact Info) Description 06/10/2025 11:30 AM EDT Ancillary Procedure [facility] [address] [facility] [address] [place] [phone] Social History Tobacco Use Types Packs/Day Years [...] Info) Description 07/29/2025 1:10 PM EST Consult [facility] [address] [facility] [address] [place] [address] April Nicole NP [address] [place] [address] [place] [address] documented as of this encounter Procedures Procedure Name Priority Date/Time Associated Diagnosis Comments CARDIAC DEVICE CHECK- REMOTE- MURJ Routine 06/10/2025 11:25 AM EDT documented in this encounter Results * Cardiac device check - Remote- MURJ (06/10/2025 11:25 AM EDT) Date Time Interrogation Session [id number] CV DEVICE CHECK Type Interrogation Session Remote Scheduled CV DEVICE CHECK Implantable Pulse Generator Oral And Maxillofacial Surgery BSX CV DEVICE CHECK Implantable Pulse Generator Type ILR CV DEVICE CHECK Implantable Pulse Generator Model M301 CV DEVICE CHECK Implantable Pulse Generator Serial Number [id number] CV DEVICE CHECK Implantable Pulse Generator Implant Date 20220608 CV DEVICE CHECK Battery Status Beginning of Service CV DEVICE CHECK Atrial Tachy Statistic AT/AF [place] Percent 1.00 CV DEVICE CHECK Date of Service 2025-06-18 CV DEVICE CHECK Anatomical Region Laterality Modality Device Interroga tion 05/31/2025 12:2 8 AM EDT Impressions 06/10/2025 7:47 AM EDT Normal Remote: No Events * This is a normal remote diagnostic device check * Alerts or events: None * Battery data was reviewed * Battery status: GABRIELE, * Presenting rhythm reviewed * Heart Rate Histograms reviewed Narrative Procedure Note Carmelo Nowak MD - 06/10/2025 IMPRESSION: Normal Remote: No Events * This is a normal remote diagnostic device check * Alerts or events: None * Battery data was reviewed * Battery status: GABRIELE, * Presenting rhythm reviewed * Heart Rate Histograms reviewed Carmelo Nowak MD CV IMPLANTABLE CARDIAC DEVICE PROCEDURES Final Result documented in this encounter Visit Diagnoses Not on filedocumented in this encounter Care Teams Technical Engineer Relationship Specialty Start Date End Date Finn Okeefe MD [address] [place] [address] PCP - General Internal Medicine 06/02/25 documented as of this encounter
--- OUTSIDE RECORDS SUMMARY | 2025-06-11 06:36 | XMS_ITS ---
Author Organization [facility] Address [address] [place] [address] Care Team Providers Care Assembler Convertible Top Name Role Phone Criss Churchill Unavailable [phone] Reason For Referral Reason Vestibular Therapy [facility] Diagnosis 1 Benign paroxysmal po sitional vertigo, bilateral (H81.13) Referral Organization [facility] [address] Referring Provider First Name Criss Referring Provider Last Name Zhao Referring Provider Speciality Internal M edicine Referred Provider Specialty Physical The rapist General Notes Kerry Stanley 10:37:01 AM > Referral form faxed to Referral Priority Routine Reason [facility] endocrinolo gy Diagnosis 1 Thyroid nodule (E04. 1) Referral Organization [facility] [address] Referring Provider First Name Criss Referring Provider Last Name Zhao Referring Provider Speciality Internal M edicine Referred Provider Specialty Endocrinolog y General Notes Kerry Stanley 10:39:32 AM > Pt given referral faxed to Referral Priority Routine Encounters Encounter Location Date Provider Diagnosis [facility] [address] [place] [address] 06/11/2025 Criss Churchill Plan Of Treatment Referrals Referral Date Details 06/11/2025 06/11/2025, Vestibul ar Therapy [facility] 06/11/2025 06/11/2025, [facility] endocrinology Next Appt Details Provider Name:Criss dumont, 06/22/2025 11:00:00 AM, [address], [address], [place], [address], Progress Notes * Starr BRAXTONDOB:[birth year] (80 yo F)Acc No.[id number]:06/11/2025 Patient: Starr HONG :1945 A ge:80 Y S ex:Female Address:[address] [place] [address], [place], [address] Subjective: * Chief Complaints: * * Medical History: * Surgical History: * Hospitalization/Major Diagno stic Procedure: * Medications: Objective: * Vitals: * Physical Examination: Assessment: Plan: * Treatment: * Procedure Codes: * true * Date: Generated for Armond hudson/Lucina/eTbrycesmitting on: 02:22 PM EDT Consultation Request Notes Referral Date Referring Provider Referred Provider Not goyo 06/11/2025 Criss Churchill Vestibular Therapy [facility] 06/11/2025 Criss Churchill [facility]
--- OUTSIDE RECORDS SUMMARY | 2025-06-14 07:00 | XMS_ITS ---
Author Organization [facility] [address] Address [address] [place] [address] Care Team Providers Care Auto Body Straightener Name Role Phone Criss Churchill Unavailable [phone] LULMATIAS ESCOBAR Unavailable [phone] REASON FOR VISIT pt presents for nurse visit. bilateral ear lavage completed. pt tolerated well Medications Medication SIG (Take, Route, Frequency, Duration) Notes Start Date End Date Status Furosemide 20 MG 1 tablet Orally ever y other day Active Lisinopril 40 MG 1 tablet Orally Once a day; Duration: 90 days Active Repatha SureClick 140 MG/ML INJECT 1 ML INTO THE SKIN EVERY 14 DAYS Subcutaneous every 14 days; Duration: 84 days Active Carvedilol 3.125 MG 1 tablet with food Orally Twice a day Active Meclizine HCl 25 MG 1 tablet as needed Orally every 12 hrs; Duration: 30 days As needed 06/08/2025 Active predniSONE 5 MG 3 tablets once a day for 4 days, 2 tablets once a day for 4 days, 1 tablet once a day for 4 days Orally; Duration: 12 days 04/28/2025 Active Gabapentin 400 MG TAKE 1 CAPSULE BY MOUTH TWICE A DAY; Duration: 30 Active Tresiba FlexTouch 100 UNIT/ML 36 units Subcutaneous daily; Duration: 30 days 05/21/2025 Active Ondansetron HCl 4 MG TAKE 1 TABLET BY MOUTH EVERY 12 HOURS NEEDED; Duration: 10 Active oxyCODONE HCl 5 MG 1 tablet as needed Orally twice a day; Duration: 10 days As needed Partial Fill upon Patient Request 05/11/2025 Active traMADol HCl 50 MG 1 tablet as needed Orally Once a day; Duration: 7 days 04/08/2025 Active tiZANidine HCl 2 MG 1 tablet at bedtime as needed Orally Once a day; Duration: 30 days 04/15/2025 Active Amoxicillin-Pot Clavulanate 500-125 MG 1 tablet Orally every 12 hrs; Duration: 5 days 04/15/2025 Active Latanoprost 0.005 % 1 drop in both eyes Ophthalmic Once a day; Duration: 25 days Active Allopurinol 100 MG 1 tablet Orally Once a day; Duration: 30 days 04/08/2025 Active dilTIAZem HCl ER 240 MG 1 tablet Orally Once a day 03/04/2025 Active Tresiba 100 UNIT/ML as directed Subcutaneous daily 36U 03/04/2025 Active Mirtazapine 45 MG 1 tablet at bedtime Orally Once a day Active Clopidogrel Bisulfate 75 MG 1 tablet Orally Once a day; Duration: 90 days Active Eliquis 5 MG as directed Orally twice a day 03/04/2025 Active Plavix 75 MG 1 tablet Orally Once a day Active Pepcid Active Acetaminophen 500 MG 1 capsule as needed Orally every 12 hours Active Encounters Encounter Location Date Provider Diagnosis [facility] [address] [place] [address] 06/14/2025 MATIAS TOWNSEND Ear fullness, left H93.8X2 and Ear fullness, right H93.8X1 Assessments Encounter Date Diagnosis (ICD Code) Assessment Notes Treatment Notes Treatment Clinical Notes Section Notes 06/14/2025 Ear fullness, left (ICD-10 - H93.8X2) 06/14/2025 Ear fullness, right (ICD-10 - H93.8X1) Plan Of Treatment Pending Test Test Name Order Date PPC Ear Lavage 06/14/2025 Next Appt Details Provider Name:Criss Normyeimy dumont, 06/22/2025 11:00:00 AM, [address] [facility], [facility], [place], [address], Progress Notes * Starr BRAXTONDOB:[birth year] (80 yo F)Acc No.[id number]:06/14/2025 Progress Note Patient: Starr HONG Provider: Gloria TOWNSEND NP :1945 A ge:80 Y S ex:Female Date:06/14/2025 Address:[address], [facility], [place] Subjective: * Chief Complaints: * 1 . Pt presents for nurse visit. bilateral ear lavage completed. pt tolerated well. * Medical History: * Medications: T aking Carvedilol 3.125 MG Tablet 1 tablet with food Orally Twice a day , Taking Furosemide 20 MG Tablet 1 tablet Orally every other day , Taking Plavix 75 MG Tablet 1 tablet Orally Once a day , Taking Pepcid , Taking Acetaminophen 500 MG Capsule 1 capsule as needed Orally every 12 hours , Taking dilTIAZem HCl ER 240 MG Tablet Extended Release 24 Hour 1 tablet Orally Once a day , Taking Tresiba 100 UNIT/ML Solution as directed Subcutaneous daily 36U, Taking Eliquis 5 MG Tablet as directed Orally twice a day , Taking Mirtazapine 45 MG Tablet 1 tablet at bedtime Orally Once a day , Taking Clopidogrel Bisulfate 75 MG Tablet 1 tablet Orally Once a day , Taking Latanoprost 0.005 % Solution 1 drop in both eyes Ophthalmic Once a day , Taking Allopurinol 100 MG Tablet 1 tablet Orally Once a day , Taking traMADol HCl 50 MG Tablet 1 tablet as needed Orally Once a day , Taking tiZANidine HCl 2 MG Tablet 1 tablet at bedtime as needed Orally Once a day , Taking Amoxicillin-Pot Clavulanate 500-125 MG Tablet 1 tablet Orally every 12 hrs , Taking Gabapentin 400 MG Capsule TAKE 1 CAPSULE BY MOUTH TWICE A DAY , Taking predniSONE 5 MG Tablet 3 tablets once a day for 4 days, 2 tablets once a day for 4 days, 1 tablet once a day for 4 days Orally , Taking Ondansetron HCl 4 MG Tablet TAKE 1 TABLET BY MOUTH EVERY 12 HOURS NEEDED , Taking oxyCODONE HCl 5 MG Tablet 1 tablet as needed Orally twice a day As needed, Notes to Pharmacist: Partial Fill upon Patient Request, Taking Tresiba FlexTouch 100 UNIT/ML Solution Pen-injector 36 units Subcutaneous daily , Taking Lisinopril 40 MG Tablet 1 tablet Orally Once a day , Taking Repatha SureClick 140 MG/ML Solution Auto-injector INJECT 1 ML INTO THE SKIN EVERY 14 DAYS Subcutaneous every 14 days , Taking Meclizine HCl 25 MG Tablet 1 tablet as needed Orally every 12 hrs As needed Objective: * Vitals: Assessment: * Assessment: 1. E ar fullness, left - H93.8X2 2 . E ar fullness, right - H93.8X1 ? Plan: * Treatment: 2. E ar fullness, right L AB: PPC Ear Lavage * Procedure Codes: 6 9209 REMOVE IMPACTED EAR WAX UNI Care Plan: * Problems: * Images: Billing Information: * Visit Code: * Procedure Codes: 02850 REMOVE IMPACTED EAR WAX UNI. Care Plan Details* * Electronic signature of GHASSAN TOWNSEND on 06/15/2025 at 02:25 PM EDT Sign off status: Pending * Provider: Gloria TOWNSEND NP Date: Generated for Armond hudson/Lucina/Jay on: 02:25 PM EDT
--- OUTSIDE RECORDS SUMMARY | 2025-06-15 14:23 | XMS_ITS | Patient Health Record ---
Author Organization [facility] Address [address] [facility] [address] [facility] [address] [place] [address] Care Team Providers Care Entry Level Recruiter Name Role Phone Casie Nation Unavailable [phone] Reason For Referral No Information Medications Medication SIG (Take, Route, Frequency, Duration) Notes Start Date End Date Status hydroCHLOROthiazide 25mg 1 ORAL daily; Duration: -3 Guy- 07/28/2013 Active Lisinopril 30MG 1 ORAL daily; Duration: -3 Guy- 013 Active Remeron 45MG 1 ORAL at bedtime; Duration: -3 [facility]- 07/28/2013 Active Requip 0.25MG 1-2 ORAL at bedtime; Duration: -3 Guy- 07/28/2013 Active Problems Problem Type SNOMED Code ICD Code Onset Dates Problem Status W/U Status Risk Notes Problem 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 Major Problem Hyperlipidemia (51586213) Other and unspecified hyperlipidemia (272.4) Active confirmed Major Problem Depressive disorder (13538730) Depressive disorder, not elsewhere classified (311) Active confirmed Major Problem Benign essential hypertension (2845903) Essential hypertension, benign (401.1) Active confirmed Major Plan Of Treatment No Information Insurance Providers Payer Name Payer Address Payer Phone Subscriber Number Group Number Insured Name Patient Relationship to Insured Coverage Start Date Coverage End Date MEDICARE [address] LESLI LOERA [id number] [place], [place] Self - patient is the insured 1 [facility] IN[employer]MNITY PLAN [address] [place], [place] [id number] [place], [place] Self - patient is the insured
--- OUTSIDE RECORDS SUMMARY | 2025-06-15 14:24 | XMS_ITS | Patient Health Record ---
[facility] Address [address] [address] [address] Care Team Providers Care Offset Platemaker Name Role Phone Holland Churchilltlin Unavailable [phone] OKEEFE, CECILE Unavailable [phone] MATIAS TOWNSEND Unavailable [phone] Allergies Allergen (clinical drug ingredient) Drug/Non Drug Allergy documented on EMR Reaction Allergy Type Onset Date Status atorvastatin Atorvastatin stomach upset Drug Allergy Active Results Component Value Reference Range Notes CBC/Diff Ambiguous Default Reviewed date:06/02/2025 02:27:39 PM Interpretation: Performing Lab:[facility], [address], [place], Phone - [phone], Director - Gypsy Notes/Report: WBC 8.3 3.4-10.8 x10E3/uL RBC 3.67 3.77-5.28 x10E6/uL Hemoglobin 10.8 11.1-15.9 g/dL Hematocrit 34.6 34.0-46.6 % MCV 94 79-97 fL MCH 29.4 26.6-33.0 pg MCHC 31.2 31.5-35.7 g/dL RDW 13.3 11.7-15.4 % Platelets 549 150-450 x10E3/uL Neutrophils 67 Not Estab. % Lymphs 24 Not Estab. % Monocytes 6 Not Estab. % Eos 1 Not Estab. % Basos 1 Not Estab. % Neutrophils (Absolute) 5.6 1.4-7.0 x10E3/uL Lymphs (Absolute) 2.0 0.7-3.1 x10E3/uL Monocytes(Absolute) 0.5 0.1-0.9 x10E3/uL Eos (Absolute) 0.1 0.0-0.4 x10E3/uL Baso (Absolute) 0.1 0.0-0.2 x10E3/uL Immature Granulocytes 1 Not Estab. % Immature Grans (Abs) 0.1 0.0-0.1 x10E3/uL Hematology Comments: A hand-written panel/profile was received from your office. In accordance with the [facility] Ambiguous Test Code Policy dated February 2003, we have assigned CBC with Differential/Platelet , Test Code #138390 to this request. If this is not the testing you wished to receive on this specimen, please contact the [facility] Technical Services Department to clarify the test order. We appreciate your business. Comp. Metabolic Panel (14)-3 Reviewed date:06/02/2025 02:27:39 PM Interpretation: Performing Lab:[facility], [address] [facility] [address] [facility], Phone - [phone], Director - NELeonard Notes/Report: Glucose 123 70-99 mg/dL BUN 14 8-27 mg/dL Creatinine 0.99 0.57-1.00 mg/dL eGFR 58 >59 mL/min/1.73 BUN/Creatinine Ratio 14 12-28 Sodium 144 134-144 mmol/L Potassium 4.1 3.5-5.2 mmol/L Chloride 105 96-106 mmol/L Carbon Dioxide, Total 27 20-29 mmol/L Calcium 10.0 8.7-10.3 mg/dL Protein, Total 5.6 6.0-8.5 g/dL Albumin 3.8 3.8-4.8 g/dL Globulin, Total 1.8 1.5-4.5 g/dL Bilirubin, Total 0.3 0.0-1.2 mg/dL Alkaline Phosphatase 117 49-135 IU/L AST (SGOT) 17 0-40 IU/L ALT (SGPT) 11 0-32 IU/L Vitamin [id number] Reviewed date:06/02/2025 02:27:39 PM Interpretation: Performing Lab:[facility], [address], [place], Phone - [phone], Director - [facility] Notes/Report: Vitamin B12 695 010-7502 pg/mL Albumin/Creatinine Ratio,[facility] ne-[id number] Reviewed date:04/20/2025 09:57:15 AM Interpretation: Performing Lab:[facility] [place], [address] [facility], [place], Phone - [phone], Director - Gypsy Notes/Report: Creatinine, Urine 104.1 Not Estab. mg/dL Albumin, Urine 12.2 Not Estab. ug/mL Alb/Creat Ratio 12 0-29 mg/g creat Normal: 0 - 29 Moderately increased: 30 - 300 Severely increased: >300 Urinalysis, Complete-[id number] Reviewed date:04/20/2025 09:57:15 AM Interpretation: Performing Lab:[facility] [place], [address] [facility], [place], Phone - [phone], Director - Gypsy Notes/Report: Specific Malott 1.026 1.005-1.030 pH 6.0 5.0-7.5 Urine-Color Yellow Yellow Appearance Clear Clear WBC Esterase 1+ Negative Protein Trace Negative/Trace Glucose Negative Negative Ketones Negative Negative Occult Blood Negative Negative Bilirubin Negative Negative Urobilinogen,Semi-Qn 0.2 0.2-1.0 mg/dL Nitrite, Urine Negative Negative Microscopic Examination See below: Micr oscopic was indicated and was performed. WBC 0-5 0 - 5 /hpf RBC 0-2 0 - 2 /hpf Epithelial Cells (non renal) 0-10 0 - 10 /hpf Casts None seen None seen /lpf Bacteria None seen None seen/Few US HEAD NECK SOFT TISSUE Reviewed date:06/09/2025 12:47:46 PM Interpretation: Performing Lab: Notes/Report: Note See Note [facility], a member of [employer] Patient Name: STARR HOBBS Date of : 1945 Reason for Exam: thyroid nodule Exam Date: 05/31/2025 [id number] EST Report Status: Final Ordering Provider: KATIE CHURCHILL PCP: CECILE OKEEFE HISTORY: Follow-up thyroid nodule. Ultrasound-guided FNA of a solid left lobe nodule in 2019. COMPARISON: 12/30/17, thyroid FNA 10/08/18 FINDINGS: High resolution real-time imaging of the thyroid gland was performed. RIGHT LOBE: The right lobe is normal in size, measuring 3.4 x 1.4 x 1.7 cm (3.2 x 1.0 x 2.3 cm previously). The right lobe thyroid parenchyma remains homogeneous, without focal nodule. LEFT LOBE: The left lobe remain s mildly enlarged, measuring 4.3 x 2.1 x 2.0 cm (3.7 x 1.6 x 2.2 cm previously). A circumscribed arben d, isoechoic nodule is again seen in the interpolar area, measuring 2.4 x 2.1 x 2.1 cm (2.0 x 1.7 x 2.5 cm previously), previously biopsied. TI RADS 3 ISTHMUS: The isthmus is xochilt l in thickness, measuring 0.2 cm, and without focal nodule. IMPRESSION: No significant rueda e in a previously biopsied 2.4 cm TI RADS 3 nodule in the left thyroid lobe. [place] PA ([id number]) -------- FINAL REPOR T -------- Dictated By: Daniela Rogers i Dictated Date: 06/07/2025 15:18 ET Assigned Physician: Daniela Khan Reviewed and Electronically Signed By: Daniela Khan Signed Date: 15:21 ET Workstation ID: [id number] Transcribed By: Self Edit Transcribed Date: 06/07/2025 15:18 ET Hemoglobin A1c Reviewed date:04/14/2025 02:50:56 PM Interpretation: Performing Lab:[facility], [address] [facility], [place], Phone - [phone], Director - Gypsy Notes/Report: Hemoglobin A1c 5.4 Reference Range: [place] Diabetes Association (ADA) Guidelines: <5.7: Decreased risk for diabetes 5.7 - 6.4: Increased risk for diabetes >6.4: Ongoing Hyperglycemia of any cause <7.0: Glycemic control for adults with diabetes Estimated Average Glucose 108 Lipid Panel-[id number] Reviewed date:04/14/2025 02:50:56 PM Interpretation: Performing Lab:[facility], [address] [facility], [place], Phone - [phone], Director - Gypsy Notes/Report: Cholesterol, Total 182 100-199 mg/dL Triglycerides 227 0-149 mg/dL HDL Cholesterol 53 >39 mg/dL VLDL Cholesterol Cordell 38 5-40 mg/dL LDL Chol Calc ([facility]) 91 0-99 mg/dL Albumin/Creatinine Ratio,Uri ne-[id number] Reviewed date:04/14/2025 02:50:56 PM Interpretation: Performing Lab:[facility] [place], [address] [place] [address], Phone - [phone], Director - Gypsy Notes/Report: Creatinine, Urine 115.8 Not Estab. mg/dL Albumin, Urine 15.5 Not Estab. ug/mL Alb/Creat Ratio 13 0-29 mg/g creat Normal: 0 - 29 Moderately increased: 30 - 300 Severely increased: >300 Vitamin D, 63-Qtxyrgd-[id number] Reviewed date:04/14/2025 02:50:56 PM Interpretation: Performing Lab:[facility] [place], [address] [place] [address], Phone - [phone], Director - Gypsy Notes/Report: Vitamin D, 25-Hydroxy TNP [facility] was unable to collect sufficient specimen to perform the following test(s), and is providing the patient with re-collection instructions. Vitamin D deficiency has been defined by the [place] [employer] and an Endocrine Society practice guideline as a level of serum 25-OH vitamin D less than 20 ng/mL (1,2). The Endocrine Society went on to further define vitamin D insufficiency as a level between 21 and 29 ng/mL (2). 1. IOM ([place] [employer]). 2010. Dietary reference intakes for calcium and D. [place]: The National Academies Press. 2. Salome MF, [place], Arminda OLIVEIRA, et al. Evaluation, treatment, and prevention of vitamin D deficiency: an Endocrine Society clinical practice guideline. JCEM. 2010; 96(7):1911-30. TSH-[id number] Reviewed date:04/14/2025 02:50:56 PM Interpretation: Performing Lab:[facility] [place], [address] [place] [address], Phone - [phone], Director - Gypsy Notes/Report: TSH 1.880 0.450-4.500 uIU/mL Urinalysis, Complete-[id number] Reviewed date:04/14/2025 02:50:56 PM Interpretation: Performing Lab:[facility] [place], [address] [place] [address], Phone - [phone], Director - Gypsy Notes/Report: Specific Malott 1.017 1.005-1.030 pH 5.5 5.0-7.5 Urine-Color Yellow Yellow Appearance Cloudy Clear WBC Esterase 3+ Negative Protein Trace Negative/Trace Glucose Negative Negative Ketones Negative Negative Occult Blood Negative Negative Bilirubin Negative Negative Urobilinogen,Semi-Qn 0.2 0.2-1.0 mg/dL Nitrite, Urine Positive Negative Microscopic Examination See below: Micr oscopic was indicated and was performed. WBC >30 0 - 5 /hpf RBC None seen 0 - 2 /hpf Epithelial Cells (non renal) 0-10 0 - 10 /hpf Casts None seen None seen /lpf Bacteria Many None seen/Few Triiodothyronine (T3)-[id number] Reviewed date:04/14/2025 02:50:56 PM Interpretation: Performing Lab:[facility] [address] [place] [address], Phone - [phone], Director - Gypsy Notes/Report: Triiodothyronine (T3) 140 71-180 ng/dL Vitamin [id number] Reviewed date:04/14/2025 02:50:56 PM Interpretation: Performing [facility] [address] [place] [address], Phone - [phone], Director - Gypsy Notes/Report: Vitamin B12 185 088-6381 pg/mL Request Problem [facility] was unable to collect sufficient specimen to perform the following test(s), and is providing the patient with re-collection instructions. TEST: [id number] Vitamin D, 25-Hydroxy Panel: 371671 Thyroxine (T4)-310643 Reviewed date:04/14/2025 02:50:56 PM Interpretation: Performing [facility] [address] [place] [address], Phone - [phone], Director - Ronitdry Notes/Report: Thyroxine (T4) 9.1 4.5-12.0 ug/dL Comp. Metabolic Panel (14)-3 [id number] Reviewed date:04/14/2025 02:50:56 PM Interpretation: Performing [facility] [address] [place] [address], Phone - [phone], Director - Jodry Notes/Report: Glucose 91 70-99 mg/dL BUN 23 8-27 mg/dL Creatinine 1.14 0.57-1.00 mg/dL eGFR 49 >59 mL/min/1.73 BUN/Creatinine Ratio 20 12-28 Sodium 144 134-144 mmol/L Potassium 4.0 3.5-5.2 mmol/L Chloride 101 96-106 mmol/L Carbon Dioxide, Total 24 20-29 mmol/L Calcium 10.8 8.7-10.3 mg/dL Verified by repeat analysis Protein, Total 6.5 6.0-8.5 g/dL Albumin 4.5 3.8-4.8 g/dL Globulin, Total 2.0 1.5-4.5 g/dL Bilirubin, Total 0.2 0.0-1.2 mg/dL Alkaline Phosphatase 165 44-121 IU/L AST (SGOT) 18 0-40 IU/L ALT (SGPT) 12 0-32 IU/L MR LUMBAR SPINE WO CONTRAST Reviewed date:05/05/2025 03:58:00 PM Interpretation: Performing Lab: Notes/Report: Note See Note [facility], a member of [employer] Patient Name: STARR HOBBS Date of : 1945 Reason for Exam: Radiculopathy lumbar region Exam Date: 05/03/2025 [id number] EST Report Status: Final Ordering Provider: KATIE CHURCHILL PCP: JANAY SEVILLA PROCEDURE: MRI of th e lumbar spine without contrast. TECHNIQUE: Multiplan ar multisequence MRI of the lumbar spine without intravenous contrast administration. HISTORY: Radiculopat hy lumbar region COMPARISON: 02/21/2024. FINDINGS: Partially visible [...] is suggestion of moderate bilateral foraminal stenosis. IMPRESSION: Postsurgical changes at L4-5. Large inferiorly projecting right central extrusion at L2-3 with significant narrowing of the lateral recess and impingement of the right L3 nerve root. -------- FINAL REPOR T -------- Dictated By: Eddie Solorio Dictated Date: 05/05/2025 09:38 ET Assigned Physician: Eddie Dwyer Reviewed and Electronically Signed By: Eddie Dwyer Signed Date: 025 10:06 ET Workstation ID: [id number] Transcribed By: Self Edit Transcribed Date: 05/05/2025 09:38 ET XR HIP 2-3 VIEWS RIGHT Reviewed date:04/12/2025 01:00:28 PM Interpretation: Performing Lab: Notes/Report: Note See Note [facility], a member of [employer] Patient Name: STARR HOBBS Date of : 1945 Reason for Exam: OTHER Exam Date: 04/08/2025 [id number] EST Report Status: Final Ordering Provider: KATIE CHURCHILL PCP: JANAY SEVILLA HISTORY: The patient is a 79-year-old female with right hip pain. No history of trauma is provided. FINDINGS: AP radiogr aph of the pelvis, along with coned-down AP [...] calcification is noted. IMPRESSION: No acute findings. V king mild osteoarthritis of the hips bilaterally. The patient is seen to have undergone previous posterior fixation surgery in the lower lumbar spine. Code 23151 -------- FINAL REPOR T -------- Dictated By: Jacoby Chavez Dictated Date: 04/08/2025 10:50 ET Assigned Physician: Jacoby Chavez Reviewed and Electronically Signed By: Jacoby Chavez Signed Date: 025 10:53 ET Workstation ID: [id number] Transcribed By: Self Edit Transcribed Date: 04/08/2025 10:50 ET Reason For Referral Reason MRI large disc extru loraine Diagnosis 1 Intervertebral disc disorders with radiculopathy, lumbar region (M51.16) Referral Organization [facility] [address] Referring Provider First Name Katie Referring Provider Last Name Zhao Referring Provider Speciality Internal edicine Referred Provider Specialty Neurosurgery General Notes Farshad Tucker, [address] [place] [address] [address], [place] [address] , , Referral Priority Routine Reason treat and evaluate Diagnosis 1 Other intervertebral disc displacement, lumbosacral region (M51.27) Referral Organization [facility] [address] Referring Provider First Name Katie Referring Provider Last Name Normoyle Referring Provider Speciality Internal edicine Referred Provider Specialty Pain Medicin e General Notes Jermaine Momin 05/10 01:50:42 PM >, [facility] [place] [address], p: [phone], f: [phone] Clinical Notes Fabricio Lockhart 09/2024 03:18:04 PM > The office confirmed receipt of referral. They will be contacting the patient next week to schedule Referral Priority Routine Reason Vestibular Therapy A TI-ELM Diagnosis 1 Benign paroxysmal po sitional vertigo, bilateral (H81.13) Referral Organization [facility] [address] Referring Provider First Name Katie Referring Provider Last Name Normoyle Referring Provider Speciality Internal edicine Referred Provider Specialty Physical The rapist General Notes Kerry Stanley 10:37:01 AM > Referral form faxed to Referral Priority Routine Reason [facility] endocrinolo gy Diagnosis 1 Thyroid nodule (E04. 1) Referral Organization [facility] [address] Referring Provider First Name Katie Referring Provider Last Name Zhao Referring Provider Speciality Internal M edicine Referred Provider Specialty Endocrinolog y General Notes Lizeth Kerry 10:39:32 AM > Pt given referral faxed to Referral Priority Routine Medications Medication SIG (Take, Route, Frequency, Duration) Notes Start Date End Date Status dilTIAZem HCl ER 240 MG 1 tablet Orally Once a day 03/04/2025 Active predniSONE 5 MG 3 tablets once a day for 4 days, 2 tablets once a day for 4 days, 1 tablet once a day for 4 days Orally; Duration: 12 days 04/28/2025 Active Tresiba 100 UNIT/ML as directed Subcutaneous daily 36U 03/04/2025 Active Furosemide 20 MG 1 tablet Orally ever y other day Active traMADol HCl 50 MG 1 tablet as needed Orally Once a day; Duration: 7 days 04/08/2025 Active Plavix 75 MG 1 tablet Orally Once a day Active tiZANidine HCl 2 MG 1 tablet at bedtime as needed Orally Once a day; Duration: 30 days 04/15/2025 Active Pepcid Active Amoxicillin-Pot Clavulanate 500-125 MG 1 tablet Orally every 12 hrs; Duration: 5 days 04/15/2025 Active Acetaminophen 500 MG 1 capsule as needed Orally every 12 hours Active Gabapentin 400 MG TAKE 1 CAPSULE BY MOUTH TWICE A DAY; Duration: 30 Active Mirtazapine 45 MG 1 tablet at bedtime Orally Once a day Active Tresiba FlexTouch 100 UNIT/ML 36 units Subcutaneous daily; Duration: 30 days 05/21/2025 Active Clopidogrel Bisulfate 75 MG 1 tablet Orally Once a day; Duration: 90 days Active Lisinopril 40 MG 1 tablet Orally Once a day; Duration: 90 days Active Latanoprost 0.005 % 1 drop in both eyes Ophthalmic Once a day; Duration: 25 days Active Repatha SureClick 140 MG/ML INJECT 1 ML INTO THE SKIN EVERY 14 DAYS Subcutaneous every 14 days; Duration: 84 days Active Carvedilol 3.125 MG 1 tablet with food Orally Twice a day Active Allopurinol 100 MG 1 tablet Orally Once a day; Duration: 30 days 04/08/2025 Active Meclizine HCl 25 MG 1 tablet as needed Orally every 12 hrs; Duration: 30 days As needed 06/08/2025 Active Ondansetron HCl 4 MG TAKE 1 TABLET BY MOUTH EVERY 12 HOURS NEEDED; Duration: 10 Active Eliquis 5 MG as directed Orally twice a day 03/04/2025 Active oxyCODONE HCl 5 MG 1 tablet as needed Orally twice a day; Duration: 10 days As needed Partial Fill upon Patient Request 05/11/2025 Active Problems Problem Type SNOMED Code ICD Code Onset Dates Problem Status W/U Status Risk Notes Problem Encephalopathy (63535908) Other encephalopathy (G93.49) Active confirmed Problem Paroxysmal atrial fibrillation (302171599) Paroxysmal atrial fibrillation (I48.0) Active confirmed Problem Radiculopathy due to lumbar intervertebral disc disorder (657862559458851) Intervertebral disc disorders with radiculopathy, lumbar region (M51.16) Active confirmed Problem Displacement of lumbar intervertebral disc without myelopathy (64203251) Other intervertebral disc displacement, lumbosacral region (M51.27) Active confirmed Problem Abnormal blood pressure (27212155) Encounter for examination of blood pressure with abnormal findings (Z01.31) Active confirmed Problem Hyperlipoproteinemia (7203250) Acquired hyperlipoproteinemia (E78.5) Active confirmed Problem Vitamin D deficiency (46579570) Vitamin D deficiency (E55.9) Active confirmed Problem Thyroid nodule (470678285) Thyroid nodule (E04.1) Active confirmed Problem John's esophagus (748974402) 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) Active confirmed Problem Lumbar radiculopathy (045018470) Lumbar radiculopathy (M54.16) Active confirmed Problem Glaucoma (21656074) Glaucoma of both eyes, unspecified glaucoma type (H40.9) Active confirmed Problem Chronic gouty arthritis (43773045) Chronic gout of left foot, 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) Active confirmed Problem Vitamin B>12< deficiency anaemia (20497935) Anemia due to vitamin B12 deficiency, unspecified B12 deficiency type (D51.9) Active confirmed Problem Mixed hyperlipidemia (731562523) Hyperlipidemia, mixed (E78.2) Active confirmed Problem Hypoglycemia (943662829) Hypoglycemia (E16.2) Active confirmed Problem Avitaminosis D (15128032) Avitaminosis D (E55.9) Active confirmed Problem Stenosis of right carotid artery (442472911754449) Stenosis of right carotid artery (I65.21) Active confirmed Problem Abnormal metabolic state due to diabetes mellitus (352017115) Abnormal metabolic state due to diabetes mellitus (E11.9) Active confirmed Problem Postviral fatigue syndrome (78870354) Postviral fatigue syndrome (G93.31) Active confirmed Problem Essential hypertension (42849111) Hypertension, essential (I10) Active confirmed Problem Type II diabetes mellitus well controlled (781724598) Diabetes type 2, controlled (E11.9) Active confirmed Vital Signs Heart Rate 104 /min 06/08/2025 Oximetry 98 % 06/08/2025 Blood pressure diastolic 70 mm Hg 06/08/2025 Height 63.5 in 06/08/2025 Blood pressure systolic 130 mm Hg 06/08/2025 Weight 201.6 lbs 06/08/2025 BMI 35.15 kg/m2 06/08/2025 Encounters Encounter Location Date Provider Diagnosis [facility] [address] [place] [address] 06/14/2025 MATIAS WHITEHEADT Ear fullness, left H93.8X2 and Ear fullness, right H93.8X1 [facility] [address] [place] [address] 03/04/2025 Katie Normoyle Hyperlipidemia, mixe d E78.2 ; Hypertension, essential I10 ; Stenosis of right carotid artery I65.21 ; Chronic gout of left foot, unspecified cause M1A.0720 ; Paroxysmal atrial fibrillation I48.0 ; Encounter for examination of blood pressure with abnormal findings Z01.31 ; John's esophagus with dysplasia K22.719 ; Diabetes type 2, controlled E11.9 ; History of stroke Z86.73 and Glaucoma of both eyes, unspecified glaucoma type H40.9 [facility] [address] [place] [id number] 04/08/2025 Katie Normoyle Hip pain, right M25. 551 ; Hypertension, essential I10 ; Stenosis of right carotid artery I65.21 ; Chronic gout of left foot, unspecified cause M1A.0720 ; Paroxysmal atrial fibrillation I48.0 ; John's esophagus with dysplasia K22.719 ; Diabetes type 2, controlled E11.9 ; History of stroke Z86.73 ; Hyperlipidemia, mixed E78.2 and Encounter for examination of blood pressure without abnormal findings Z01.30 [facility] [address] [address] 04/15/2025 Katie Normoyle Hip pain, right M25. 551 ; Hyperlipidemia, mixed E78.2 ; Hypertension, essential I10 ; Stenosis of right carotid artery I65.21 ; Chronic gout of left foot, unspecified cause M1A.0720 ; Paroxysmal atrial fibrillation I48.0 ; John's esophagus with dysplasia K22.719 ; Diabetes type 2, controlled E11.9 ; Acute cystitis without hematuria N30.00 and Encounter for examination of blood pressure without abnormal findings Z01.30 [facility] [address] [address] 04/28/2025 Katie Normoyle Hip pain, right M25. 551 ; Hyperlipidemia, mixed E78.2 ; Hypertension, essential I10 ; Stenosis of right carotid artery I65.21 ; Chronic gout of left foot, unspecified cause M1A.0720 ; Paroxysmal atrial fibrillation I48.0 ; John's esophagus with dysplasia K22.719 ; Diabetes type 2, controlled E11.9 and Lumbar radiculopathy M54.16 [facility] [address] [address] 05/25/2025 Katie Normoyle COVID-19 U07.1 ; Ot er encephalopathy G93.49 ; Hyperlipidemia, mixed E78.2 ; Hypertension, essential I10 ; Stenosis of right carotid artery I65.21 ; Chronic gout of left foot, unspecified cause M1A.0720 ; Paroxysmal atrial fibrillation I48.0 ; John's esophagus with dysplasia K22.719 ; Lumbar radiculopathy M54.16 ; Thyroid nodule E04.1 ; Postviral fatigue syndrome G93.31 and Encounter for examination of blood pressure without abnormal findings Z01.30 [facility] [address] 06/08/2025 Katie Normoyle Hyperlipidemia, mixe d E78.2 ; Postviral fatigue syndrome G93.31 ; Hypertension, essential I10 ; Stenosis of right carotid artery I65.21 ; Chronic gout of left foot, unspecified cause M1A.0720 ; Paroxysmal atrial fibrillation I48.0 ; John's esophagus with dysplasia K22.719 ; Lumbar radiculopathy M54.16 ; Thyroid nodule E04.1 ; Benign paroxysmal positional vertigo, bilateral H81.13 ; Bilateral impacted cerumen H61.23 ; Hypoglycemia E16.2 and Encounter for examination of blood pressure without abnormal findings Z01.30 [facility] [address] 03/04/2025 Katie Normoyle [facility] [address] 03/04/2025 Katie Normoyle Hyperlipidemia, mixe d E78.2 ; Diabetes type 2, controlled E11.9 ; Screening for thyroid disorder Z13.29 ; Vitamin B deficiency E53.9 ; Vitamin D deficiency E55.9 and Kidney disease N28.9 [facility] [address] 05/05/2025 Katie Normoyle [facility] [address] 05/05/2025 Katie Normoyle [facility] [address] [place] [address] 05/07/2025 Katie Normoyle [facility] [address] 05/10/2025 Katie Normoyle [facility] [address] 05/11/2025 Katie Normoyle [facility] [address] 05/21/2025 Katie Normoyle [facility] [address] 05/21/2025 Katie Normoyle [facility] [address] 05/26/2025 Katie Normoyle Thyroid nodule E04.1 [facility] [address] [facility] [address] [place] [address] 05/26/2025 Katie Normoyle [facility] [address] [place] [address] [address] 05/26/[address] [facility] [address] [place] [address] 06/08/2025 Katie Normoyle [facility] [address] [address] 06/09/2025 Katie Normoyle [facility] [address] [address] 06/11/2025 Katie Normoyle [facility] [address] [address] 03/19/2025 Katie Normoyle [facility] [address] [address] 04/24/2025 Katie Normoyle Chronic gout of left foot, unspecified cause [id number] [facility] [address] [address] 05/05/2025 Katie Normoyle Assessments Encounter Date Diagnosis (ICD Code) Assessment Notes Treatment Notes Treatment Clinical Notes Section Notes 03/04/2025 Hyperlipidemia, mixed (ICD-10 - E78.2) Patient is welcomed to the practice. They are coming from Dr. Magallanes. Last complete physical exam with labs August 2024. Medications, medical history, allergies, surgeries, hospitalizations, family history, and social history were reviewed. Problem list updated. Cardiopulmonary and abdominal exam unremarkable. Patient will follow-up in office. All patient questions answered at this time. #Health maintenance: Follows regularly with dentist and eye doctor. Declines LOADERS and further Pap smears. Up-to-date on all vaccines. She believes she is overdue with mammogram at [facility], plans to schedule. She will be due for repeat colonoscopy with endoscopy August 2025 when she discontinues Plavix. Believes she has had a bone density scan but unsure of date and results. #Paroxysmal atrial fibrillation: Rate controlled. Denies palpitations or chest pain. Continue diltiazem 180 mg daily. Continue Eliquis 5 mg daily. Follows closely with [facility] cardiology, Dr. Delarosa. Recently had cardiac stents placed and continues on Plavix for 1 year until 08/2025. 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 #Carotid artery stenosis: Follows every 6 months for repeat ultrasound with vascular surgery, most recent appointment upcoming 03/2025. She states she is not a surgical candidate. Intolerant to statins. Continue Repatha 140 mg every 2 weeks. #Glaucoma: Follows regularly with ophthalmology. Continue latanoprost 0.005% 1 drop in each eye nightly #Type 2 diabetes: She has been on Tresiba 36 units daily. She states her blood sugars at home on average are just above 100. Discussed transitioning to Mounjaro 2.5 weekly injections for A1c reduction and weight loss. Discussed side effects including constipation, nausea, reflux, hair thinning. Plan to review records and previously trialed medications. Will consider transition at next visit. F/u in 4 weeks. #Gout: Follows with podiatry, Dr. Chapman, recently received a cortisone injection. She reports more frequent flares and did have a fall secondary to her toe pain reported to the hospital. Patient states she does not have CKD, however, Dr. Chapman's most recent note mentions a history of CKD. Will hold off on starting allopurinol until kidney function is confirmed to determine dosing. #Hypertension: BP today 150/88, 162/94. She recently had her lisinopril decreased from 40 to 20 mg in the hospital. Unclear whether this was due to JUSTINE versus concern for worsening uric acid levels and gout. Will review notes. Continue lisinopril 20 mg at this time. Will consider increasing dose or adding additional antihypertensive at next visit in 1 month. #John's esophagus: Continue following with GI every 6 months. Total time spent today was 60 minutes of which greater than 50% was spent on coordinating and counseling All questions have been answered to patient's satisfaction. Patient verbalized understanding of diagnosis and treatments explained. Advised to call sooner prior to next visit it any questions/concerns arise. Case discussed with collaborating physician Jitendra Okeefe who reviewed the assessment and plan. Chart, medications, labs, vital signs reviewed. Dictation was accomplished with the use of [employer] voice recognition software, which is prone to medical misidentifications and grammatical errors. This are unintentional and the practitioner does try to identify and correct these, but some could still be present. Please do not hesitate to contact practitioner for clarification. 03/04/2025 Hypertension, essential (ICD-10 - I10) Patient is welcomed to the practice. They are coming from Dr. Magallanes. Last complete physical exam with labs August 2024. Medications, medical history, allergies, surgeries, hospitalizations, family history, and social history were reviewed. Problem list updated. Cardiopulmonary and abdominal exam unremarkable. Patient will follow-up in office. All patient questions answered at this time. #Health maintenance: Follows regularly with dentist and eye doctor. Declines LOADERS and further Pap smears. Up-to-date on all vaccines. She believes she is overdue with mammogram at [facility], plans to schedule. She will be due for repeat colonoscopy with endoscopy August 2025 when she discontinues Plavix. Believes she has had a bone density scan but unsure of date and results. #Paroxysmal atrial fibrillation: Rate controlled. Denies palpitations or chest pain. Continue diltiazem 180 mg daily. Continue Eliquis 5 mg daily. Follows closely with [facility] cardiology, Dr. Delarosa. Recently had cardiac stents placed and continues on Plavix for 1 year until 08/2025. 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 #Carotid artery stenosis: Follows every 6 months for repeat ultrasound with vascular surgery, most recent appointment upcoming 03/2025. She states she is not a surgical candidate. Intolerant to statins. Continue Repatha 140 mg every 2 weeks. #Glaucoma: Follows regularly with ophthalmology. Continue latanoprost 0.005% 1 drop in each eye nightly #Type 2 diabetes: She has been on Tresiba 36 units daily. She states her blood sugars at home on average are just above 100. Discussed transitioning to Mounjaro 2.5 weekly injections for A1c reduction and weight loss. Discussed side effects including constipation, nausea, reflux, hair thinning. Plan to review records and previously trialed medications. Will consider transition at next visit. F/u in 4 weeks. #Gout: Follows with podiatry, Dr. Chapman, recently received a cortisone injection. She reports more frequent flares and did have a fall secondary to her toe pain reported to the hospital. Patient states she does not have CKD, however, Dr. Chapman's most recent note mentions a history of CKD. Will hold off on starting allopurinol until kidney function is confirmed to determine dosing. #Hypertension: BP today 150/88, 162/94. She recently had her lisinopril decreased from 40 to 20 mg in the hospital. Unclear whether this was due to JUSTINE versus concern for worsening uric acid levels and gout. Will review notes. Continue lisinopril 20 mg at this time. Will consider increasing dose or adding additional antihypertensive at next visit in 1 month. #John's esophagus: Continue following with GI every 6 months. Total time spent today was 60 minutes of which greater than 50% was spent on coordinating and counseling All questions have been answered to patient's satisfaction. Patient verbalized understanding of diagnosis and treatments explained. Advised to call sooner prior to next visit it any questions/concerns arise. Case discussed with collaborating physician Jitendra Okeefe who reviewed the assessment and plan. Chart, medications, labs, vital signs reviewed. Dictation was accomplished with the use of [employer] voice recognition software, which is prone to medical misidentifications and grammatical errors. This are unintentional and the practitioner does try to identify and correct these, but some could still be present. Please do not hesitate to contact practitioner for clarification. 03/04/2025 Hyperlipidemia, mixed (ICD-10 - E78.2) 04/08/2025 Hip pain, right (ICD-10 - M25.551) Starr is a 79-year-old female with past medical history of hyperlipidemia, paroxysmal atrial fibrillation, rate controlled, carotid artery stenosis, CKD, glaucoma, type 2 diabetes, gout, hypertension, John's esophagus, and CVA in 2021 who presents for routine follow-up. #Right thigh pain: Ongoing for 2 weeks, limiting ambulation. Patient currently ambulating with a cane due to severe pain. Denies injury or trauma. Likely due to osteoarthritis. Plan for x-ray right hip. Patient unable to tolerate NSAIDs given CKD and bleeding risk with concomitant use of Eliquis and Plavix. Plan for tramadol 25 mg nightly. Educated patient on side effects of tramadol including dizziness, drowsiness, constipation, respiratory depression, increased risk of falls, and addiction risk. Controlled substance contract signed today. Will follow-up in 1 week. #Paroxysmal atrial fibrillation: Tachycardic today to 106. Regular rhythm. Denies palpitations or chest pain. Continue diltiazem 180 mg daily. Continue Eliquis 5 mg daily. Follows closely with [facility] cardiology, Dr. Delarosa. Recently had cardiac stents placed and continues on Plavix for 1 year until 08/2025. Consider metoprolol succinate addition, encouraged patient to discuss with Dr. Delarosa. Advised patient to monitor HR at home. 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 #CKD: Follows with Dr. Najera with nephrology. Upcoming appointment 04/2025. Most recent BMP 03/05/2025 shows creatinine 0.99, BUN 17, GFR 58. This has down trended. Continue following with nephrology. Avoid nephrotoxic agents. #Carotid artery stenosis: Follows every 6 months for repeat ultrasound with vascular surgery, most recent appointment upcoming today 04/08/2025. She states she is not a surgical candidate. Intolerant to statins. Continue Repatha 140 mg every 2 weeks. #Glaucoma: Follows regularly with ophthalmology. Continue latanoprost 0.005% 1 drop in each eye nightly #Type 2 diabetes: She has been on Tresiba 36 units daily. She states her blood sugars at home on average are just above 100. Discussed transitioning to Mounjaro 2.5 weekly injections for A1c reduction and weight loss. Discussed side effects including constipation, nausea, reflux, hair thinning. Plan to review records and previously trialed medications. Will consider transition at next visit in 1 week. #Gout: Follows with podiatry, Dr. Chapman, recently received a cortisone injection. She reports more frequent flares and did have a fall secondary to her toe pain reported to the hospital. Unable to tolerate NSAIDs or colchicine due to CKD. Plan for allopurinol 100 mg daily. Monitor kidney function #Hypertension: BP more controlled today with increasing lisinopril to 40 mg daily, and addition of chlorthalidone 25 mg daily. #John's esophagus: Continue following with GI every 6 months. All questions have been answered to patient's satisfaction. Patient verbalized understanding of diagnosis and treatments explained. Advised to call sooner prior to next visit it any questions/concerns arise. Case discussed with collaborating physician Jitendra Okeefe who reviewed the assessment and plan. Chart, medications, labs, vital signs reviewed. Dictation was accomplished with the use of [employer] voice recognition software, which is prone to medical misidentifications and grammatical errors. This are unintentional and the practitioner does try to identify and correct these, but some could still be present. Please do not hesitate to contact practitioner for clarification. 04/15/2025 Hip pain, right (ICD-10 - M25.551) Starr is a 79-year-old female with past medical history of hyperlipidemia, paroxysmal atrial fibrillation, rate controlled, carotid artery stenosis, CKD, glaucoma, type 2 diabetes, gout, hypertension, John's esophagus, and CVA in 2021 who presents for follow up regarding right thigh pain. #Right thigh pain: X-ray without acute abnormality, showed mild arthritis. On exam, tenderness to palpation over right groin soft tissue/musculature. Pain likely secondary to muscle strain due to prior physical therapy exercises. Plan for muscle relaxer as needed at night. Educated on side effects including drowsiness, dizziness or lightheadedness, and increased risk of falls. Encouraged to continue avoiding NSAIDs. Will follow-up in 2 weeks. Consider physical therapy in the future. #UTI: Urinalysis shows positive nitrates, positive WBC esterase, positive bacteria. Patient denies dysuria but does report urinary frequency and urgency which is new. Will treat with Augmentin. #Paroxysmal atrial fibrillation: Tachycardic today to 106. Regular rhythm. Denies palpitations or chest pain. Continue diltiazem 180 mg daily. Continue Eliquis 5 mg daily. Follows closely with [facility] cardiology, Dr. Delarosa. Recently had cardiac stents placed and continues on Plavix for 1 year until 08/2025. Consider metoprolol succinate addition, encouraged patient to discuss with Dr. Delarosa. Advised patient to monitor HR at home. 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 #CKD: Follows with Dr. Najera with nephrology. Upcoming appointment 04/2025. Most recent BMP 03/05/2025 shows creatinine 0.99, BUN 17, GFR 58. This has down trended. Continue following with nephrology. Avoid nephrotoxic agents. #Carotid artery stenosis: Follows every 6 months for repeat ultrasound with vascular surgery, most recent appointment 04/08/2025. She states she is not a surgical candidate. Intolerant to statins. Continue Repatha 140 mg every 2 weeks. #Glaucoma: Follows regularly with ophthalmology. Continue latanoprost 0.005% 1 drop in each eye nightly #Type 2 diabetes: She has been on Tresiba 36 units daily. She states her blood sugars at home on average are just above 100. Discussed transitioning to Mounjaro 2.5 weekly injections for A1c reduction and weight loss. Discussed side effects including constipation, nausea, reflux, hair thinning. Plan to review records and previously trialed medications. Will consider transition at next visit in 1 week. #Gout: Follows with podiatry, Dr. Chapman, recently received a cortisone injection. She reports more frequent flares and did have a fall secondary to her toe pain reported to the hospital. Unable to tolerate NSAIDs or colchicine due to CKD. Plan for allopurinol 100 mg daily. Monitor kidney function #Hypertension: BP more controlled today with increasing lisinopril to 40 mg daily, and addition of chlorthalidone 25 mg daily. #John's esophagus: Continue following with GI every 6 months. All questions have been answered to patient's satisfaction. Patient verbalized understanding of diagnosis and treatments explained. Advised to call sooner prior to next visit it any questions/concerns arise. Case discussed with collaborating physician Jitendra Okeefe who reviewed the assessment and plan. Chart, medications, labs, vital signs reviewed. Dictation was accomplished with the use of [employer]most voice recognition software, which is prone to medical misidentifications and grammatical errors. This are unintentional and the practitioner does try to identify and correct these, but some could still be present. Please do not hesitate to contact practitioner for clarification. 04/15/2025 Hyperlipidemia, mixed (ICD-10 - E78.2) [place] is a 79-year-old female with past medical history of hyperlipidemia, paroxysmal atrial fibrillation, rate controlled, carotid artery stenosis, CKD, glaucoma, type 2 diabetes, gout, hypertension, John's esophagus, and CVA in 2021 who presents for follow up regarding right thigh pain. #Right thigh pain: X-ray without acute abnormality, showed mild arthritis. On exam, tenderness to palpation over right groin soft tissue/musculature. Pain likely secondary to muscle strain due to prior physical therapy exercises. Plan for muscle relaxer as needed at night. Educated on side effects including drowsiness, dizziness or lightheadedness, and increased risk of falls. Encouraged to continue avoiding NSAIDs. Will follow-up in 2 weeks. Consider physical therapy in the future. #UTI: Urinalysis shows positive nitrates, positive WBC esterase, positive bacteria. Patient denies dysuria but does report urinary frequency and urgency which is new. Will treat with Augmentin. #Paroxysmal atrial fibrillation: Tachycardic today to 106. Regular rhythm. Denies palpitations or chest pain. Continue diltiazem 180 mg daily. Continue Eliquis 5 mg daily. Follows closely with [facility] cardiology, Dr. Delarosa. Recently had cardiac stents placed and continues on Plavix for 1 year until 08/2025. Consider metoprolol succinate addition, encouraged patient to discuss with Dr. Delarosa. Advised patient to monitor HR at home. 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 #CKD: Follows with Dr. Najera with nephrology. Upcoming appointment 04/2025. Most recent BMP 03/05/2025 shows creatinine 0.99, BUN 17, GFR 58. This has down trended. Continue following with nephrology. Avoid nephrotoxic agents. #Carotid artery stenosis: Follows every 6 months for repeat ultrasound with vascular surgery, most recent appointment 04/08/2025. She states she is not a surgical candidate. Intolerant to statins. Continue Repatha 140 mg every 2 weeks. #Glaucoma: Follows regularly with ophthalmology. Continue latanoprost 0.005% 1 drop in each eye nightly #Type 2 diabetes: She has been on Tresiba 36 units daily. She states her blood sugars at home on average are just above 100. Discussed transitioning to Mounjaro 2.5 weekly injections for A1c reduction and weight loss. Discussed side effects including constipation, nausea, reflux, hair thinning. Plan to review records and previously trialed medications. Will consider transition at next visit in 1 week. #Gout: Follows with podiatry, Dr. Chapman, recently received a cortisone injection. She reports more frequent flares and did have a fall secondary to her toe pain reported to the hospital. Unable to tolerate NSAIDs or colchicine due to CKD. Plan for allopurinol 100 mg daily. Monitor kidney function #Hypertension: BP more controlled today with increasing lisinopril to 40 mg daily, and addition of chlorthalidone 25 mg daily. #John's esophagus: Continue following with GI every 6 months. All questions have been answered to patient's satisfaction. Patient verbalized understanding of diagnosis and treatments explained. Advised to call sooner prior to next visit it any questions/concerns arise. Case discussed with collaborating physician Jitendra Okeefe who reviewed the assessment and plan. Chart, medications, labs, vital signs reviewed. Dictation was accomplished with the use of [employer] voice recognition software, which is prone to medical misidentifications and grammatical errors. This are unintentional and the practitioner does try to identify and correct these, but some could still be present. Please do not hesitate to contact practitioner for clarification. 04/24/2025 Chronic gout of left foot, unspecified cause (ICD-10 - M1A.0720) 04/28/2025 Hip pain, right (ICD-10 - M25.551) Starr is a 79-year-old female with past medical history of hyperlipidemia, paroxysmal atrial fibrillation, rate controlled, carotid artery stenosis, CKD, glaucoma, type 2 diabetes, gout, hypertension, John's esophagus, and CVA in 2021 who presents for follow up regarding right thigh pain. #Right thigh pain: X-ray without acute abnormality, showed mild arthritis. On exam, tenderness to palpation over right groin soft tissue/musculature. Intolerance to tramadol and muscle relaxers. Encouraged to continue avoiding NSAIDs. Plan for MRI lumbar spine for further evaluation. She does have prior hardware due to previous surgery. Will evaluate to ensure there has been no movement of hardware versus nerve compression versus other etiology of pain. She has been utilizing prednisone prescribed by podiatry for gout. Encouraged patient to limit use of prednisone. Will send prednisone 5 mg tablets to taper down. #Paroxysmal atrial fibrillation: Regular rhythm. Denies palpitations or chest pain. Continue diltiazem 180 mg daily. Continue Eliquis 5 mg daily. Follows closely with [facility] cardiology, Dr. Delarosa. Recently had cardiac stents placed and continues on Plavix for 1 year until 08/2025. Consider metoprolol succinate addition, encouraged patient to discuss with Dr. Delarosa. Advised patient to monitor HR at home. 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 #CKD: Follows with Dr. Najera with nephrology. Upcoming appointment 04/2025. Most recent BMP 03/05/2025 shows creatinine 0.99, BUN 17, GFR 58. This has down trended. Continue following with nephrology. Avoid nephrotoxic agents. #Carotid artery stenosis: Follows every 6 months for repeat ultrasound with vascular surgery, most recent appointment 04/08/2025. She states she is not a surgical candidate. Intolerant to statins. Continue Repatha 140 mg every 2 weeks. #Glaucoma: Follows regularly with ophthalmology. Continue latanoprost 0.005% 1 drop in each eye nightly #Type 2 diabetes: She has been on Tresiba 36 units daily. She states her blood sugars at home on average are just above 100. A1c is 5.4. Will consider cutting down insulin, will address at future appt when thigh pain is more controlled. #Gout: Follows with podiatry, Dr. Chapman, recently received a cortisone injection. She reports more frequent flares and did have a fall secondary to her toe pain reported to the hospital. Unable to tolerate NSAIDs or colchicine due to CKD. Continue allopurinol 100 mg daily. Monitor kidney function #Hypertension: . BP elevated today. Continue lisinopril 40 mg daily. Chlorthalidone was discontinued due to risk of gout and she was started on furosemide 20 mg every other day. Will consider increasing furosemide to daily. Will evaluate BMP at next visit to ensure electrolytes are within normal limits. Will continue to monitor at this visit as well. Patient encouraged to continue taking BP at home, on average have been 130/70 #John's esophagus: Continue following with GI every 6 months. All questions have been answered to patient's satisfaction. Patient verbalized understanding of diagnosis and treatments explained. Advised to call sooner prior to next visit it any questions/concerns arise. Case discussed with collaborating physician Jitendra Okeefe who reviewed the assessment and plan. Chart, medications, labs, vital signs reviewed. Dictation was accomplished with the use of [employer]most voice recognition software, which is prone to medical misidentifications and grammatical errors. This are unintentional and the practitioner does try to identify and correct these, but some could still be present. Please do not hesitate to contact practitioner for clarification. 04/28/2025 Hyperlipidemia, mixed (ICD-10 - E78.2) [place] is a 79-year-old female with past medical history of hyperlipidemia, paroxysmal atrial fibrillation, rate controlled, carotid artery stenosis, CKD, glaucoma, type 2 diabetes, gout, hypertension, John's esophagus, and CVA in 2021 who presents for follow up regarding right thigh pain. #Right thigh pain: X-ray without acute abnormality, showed mild arthritis. On exam, tenderness to palpation over right groin soft tissue/musculature. Intolerance to tramadol and muscle relaxers. Encouraged to continue avoiding NSAIDs. Plan for MRI lumbar spine for further evaluation. She does have prior hardware due to previous surgery. Will evaluate to ensure there has been no movement of hardware versus nerve compression versus other etiology of pain. She has been utilizing prednisone prescribed by podiatry for gout. Encouraged patient to limit use of prednisone. Will send prednisone 5 mg tablets to taper down. #Paroxysmal atrial fibrillation: Regular rhythm. Denies palpitations or chest pain. Continue diltiazem 180 mg daily. Continue Eliquis 5 mg daily. Follows closely with [facility] cardiology, Dr. Delarosa. Recently had cardiac stents placed and continues on Plavix for 1 year until 08/2025. Consider metoprolol succinate addition, encouraged patient to discuss with Dr. Delarosa. Advised patient to monitor HR at home. 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 #CKD: Follows with Dr. Najera with nephrology. Upcoming appointment 04/2025. Most recent BMP 03/05/2025 shows creatinine 0.99, BUN 17, GFR 58. This has down trended. Continue following with nephrology. Avoid nephrotoxic agents. #Carotid artery stenosis: Follows every 6 months for repeat ultrasound with vascular surgery, most recent appointment 04/08/2025. She states she is not a surgical candidate. Intolerant to statins. Continue Repatha 140 mg every 2 weeks. #Glaucoma: Follows regularly with ophthalmology. Continue latanoprost 0.005% 1 drop in each eye nightly #Type 2 diabetes: She has been on Tresiba 36 units daily. She states her blood sugars at home on average are just above 100. A1c is 5.4. Will consider cutting down insulin, will address at future appt when thigh pain is more controlled. #Gout: Follows with podiatry, Dr. Chapman, recently received a cortisone injection. She reports more frequent flares and did have a fall secondary to her toe pain reported to the hospital. Unable to tolerate NSAIDs or colchicine due to CKD. Continue allopurinol 100 mg daily. Monitor kidney function #Hypertension: . BP elevated today. Continue lisinopril 40 mg daily. Chlorthalidone was discontinued due to risk of gout and she was started on furosemide 20 mg every other day. Will consider increasing furosemide to daily. Will evaluate BMP at next visit to ensure electrolytes are within normal limits. Will continue to monitor at this visit as well. Patient encouraged to continue taking BP at home, on average have been 130/70 #John's esophagus: Continue following with GI every 6 months. All questions have been answered to patient's satisfaction. Patient verbalized understanding of diagnosis and treatments explained. Advised to call sooner prior to next visit it any questions/concerns arise. Case discussed with collaborating physician Jitendra Okeefe who reviewed the assessment and plan. Chart, medications, labs, vital signs reviewed. Dictation was accomplished with the use of Foremost voice recognition software, which is prone to medical misidentifications and grammatical errors. This are unintentional and the practitioner does try to identify and correct these, but some could still be present. Please do not hesitate to contact practitioner for clarification. 05/25/2025 Other encephalopathy (ICD-10 - G93.49) Starr is a 79-year-old female with past medical history of hyperlipidemia, paroxysmal atrial fibrillation, rate controlled, carotid artery stenosis, CKD, glaucoma, type 2 diabetes, gout, hypertension, John's esophagus, and CVA in 2021 who presents for follow up regarding right thigh pain, found to have large disc extrusion. Noted to be admitted to [facility] 05/11/2025 until 05/15/2025 due to concern for stroke, fevers, positive COVID infection. #COVID: Tested positive in the hospital 05/11/2025. Associated fevers, weakness, fatigue. Chest x-ray negative. Reports ongoing weakness and fatigue. Encourage patient to hydrate and to rest. #Encephalopathy: Was a stroke alert in the ED. Imaging unremarkable. Neurology believes this may be secondary to encephalopathy due to infection. Mentating well today. Will continue to monitor mental status. #Fatigue: Likely secondary to COVID infection and recent hospital admission. Will repeat CBC and CMP. May be secondary to hypoglycemia due to low readings in the hospital. Freestyle hetal given to patient today to monitor sugars. #Thyroid nodule: Incidental finding of 2.2 cm thyroid nodule noted on CTA. Thyroid panel within normal limits. Plan for thyroid ultrasound for further evaluation. 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 Urgent referral was placed to her neurosurgeon, Dr. Tucker with [facility]. She was cleared for surgery by cardiology. She was referred to pain management due to patient request for morphine however pain management deferred to PCP/neurosurgery. Surgery scheduled 07/22/2025. No bowel or bladder incontinence or saddle anesthesia. #Paroxysmal atrial fibrillation: Regular rhythm. Denies palpitations or chest pain. Continue diltiazem 180 mg daily. Continue Eliquis 5 mg daily. Follows closely with [facility] cardiology, Dr. Delarosa. Recently had cardiac stents placed and continues on Plavix for 1 year until 08/2025. Consider metoprolol succinate addition, encouraged patient to discuss with Dr. Delarosa next week. Advised patient to monitor HR at home. 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 #CKD: Follows with Dr. Najera with nephrology. Most recent appointment 04/2025. Most recent BMP 03/05/2025 shows creatinine 0.99, BUN 17, GFR 58. This has down trended. Continue following with nephrology. Avoid nephrotoxic agents. #Carotid artery stenosis: Follows every 6 months for repeat ultrasound with vascular surgery, most recent appointment 04/08/2025. She states she is not a surgical candidate. Intolerant to statins. Continue Repatha 140 mg every 2 weeks. #Glaucoma: Follows regularly with ophthalmology. Continue latanoprost 0.005% 1 drop in each eye nightly #Type 2 diabetes: She has been on Tresiba 36 units daily. She states her blood sugars at home on average are just above 100. A1c is 5.4. Will consider cutting down insulin, will address at future appt when thigh pain is more controlled. #Gout: Follows with podiatry, Dr. Chapman, recently received a cortisone injection. She reports more frequent flares and did have a fall secondary to her toe pain reported to the hospital. Unable to tolerate NSAIDs or colchicine due to CKD. Continue allopurinol 100 mg daily. Monitor kidney function #Hypertension: Continue lisinopril 40 mg daily. Chlorthalidone was discontinued due to risk of gout and she was started on furosemide 20 mg every other day. Will consider increasing furosemide to daily. Will evaluate BMP at next visit to ensure electrolytes are within normal limits. Patient encouraged to continue taking BP at home, on average have been 130/70 #John's esophagus: Continue following with GI every 6 months. All questions have been answered to patient's satisfaction. Patient verbalized understanding of diagnosis and treatments explained. Advised to call sooner prior to next visit it any questions/concerns arise. Case discussed with collaborating physician Jitendra Okeefe who reviewed the assessment and plan. Chart, medications, labs, vital signs reviewed. Dictation was accomplished with the use of Foremost voice recognition software, which is prone to medical misidentifications and grammatical errors. This are unintentional and the practitioner does try to identify and correct these, but some could still be present. Please do not hesitate to contact practitioner for clarification. 05/25/2025 COVID-19 (ICD-10 - U07.1) Starr is a 79-year-old female with past medical history of hyperlipidemia, paroxysmal atrial fibrillation, rate controlled, carotid artery stenosis, CKD, glaucoma, type 2 diabetes, gout, hypertension, John's esophagus, and CVA in 2021 who presents for follow up regarding right thigh pain, found to have large disc extrusion. Noted to be admitted to [facility] 05/11/2025 until 05/15/2025 due to concern for stroke, fevers, positive COVID infection. #COVID: Tested positive in the hospital 05/11/2025. Associated fevers, weakness, fatigue. Chest x-ray negative. Reports ongoing weakness and fatigue. Encourage patient to hydrate and to rest. #Encephalopathy: Was a stroke alert in the ED. Imaging unremarkable. Neurology believes this may be secondary to encephalopathy due to infection. Mentating well today. Will continue to monitor mental status. #Fatigue: Likely secondary to COVID infection and recent hospital admission. Will repeat CBC and CMP. May be secondary to hypoglycemia due to low readings in the hospital. Freestyle hetal given to patient today to monitor sugars. #Thyroid nodule: Incidental finding of 2.2 cm thyroid nodule noted on CTA. Thyroid panel within normal limits. Plan for thyroid ultrasound for further evaluation. 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 Urgent referral was placed to her neurosurgeon, Dr. Tucker with [facility]. She was cleared for surgery by cardiology. She was referred to pain management due to patient request for morphine however pain management deferred to PCP/neurosurgery. Surgery scheduled 07/22/2025. No bowel or bladder incontinence or saddle anesthesia. #Paroxysmal atrial fibrillation: Regular rhythm. Denies palpitations or chest pain. Continue diltiazem 180 mg daily. Continue Eliquis 5 mg daily. Follows closely with [facility] cardiology, Dr. Delarosa. Recently had cardiac stents placed and continues on Plavix for 1 year until 08/2025. Consider metoprolol succinate addition, encouraged patient to discuss with Dr. Delarosa next week. Advised patient to monitor HR at home. 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 #CKD: Follows with Dr. Najera with nephrology. Most recent appointment 04/2025. Most recent BMP 03/05/2025 shows creatinine 0.99, BUN 17, GFR 58. This has down trended. Continue following with nephrology. Avoid nephrotoxic agents. #Carotid artery stenosis: Follows every 6 months for repeat ultrasound with vascular surgery, most recent appointment 04/08/2025. She states she is not a surgical candidate. Intolerant to statins. Continue Repatha 140 mg every 2 weeks. #Glaucoma: Follows regularly with ophthalmology. Continue latanoprost 0.005% 1 drop in each eye nightly #Type 2 diabetes: She has been on Tresiba 36 units daily. She states her blood sugars at home on average are just above 100. A1c is 5.4. Will consider cutting down insulin, will address at future appt when thigh pain is more controlled. #Gout: Follows with podiatry, Dr. Chapman, recently received a cortisone injection. She reports more frequent flares and did have a fall secondary to her toe pain reported to the hospital. Unable to tolerate NSAIDs or colchicine due to CKD. Continue allopurinol 100 mg daily. Monitor kidney function #Hypertension: Continue lisinopril 40 mg daily. Chlorthalidone was discontinued due to risk of gout and she was started on furosemide 20 mg every other day. Will consider increasing furosemide to daily. Will evaluate BMP at next visit to ensure electrolytes are within normal limits. Patient encouraged to continue taking BP at home, on average have been 130/70 #John's esophagus: Continue following with GI every 6 months. All questions have been answered to patient's satisfaction. Patient verbalized understanding of diagnosis and treatments explained. Advised to call sooner prior to next visit it any questions/concerns arise. Case discussed with collaborating physician Jitendra Okeefe who reviewed the assessment and plan. Chart, medications, labs, vital signs reviewed. Dictation was accomplished with the use of [employer] voice recognition software, which is prone to medical misidentifications and grammatical errors. This are unintentional and the practitioner does try to identify and correct these, but some could still be present. Please do not hesitate to contact practitioner for clarification. 05/26/2025 Thyroid nodule (ICD-10 - E04.1) 06/08/2025 Hyperlipidemia, mixed (ICD-10 - E78.2) Starr is a 79-year-old female with past medical history of hyperlipidemia, paroxysmal atrial fibrillation, rate controlled, carotid artery stenosis, CKD, glaucoma, type 2 diabetes, gout, hypertension, John's esophagus, and CVA in 2021 who presents for follow up regarding significant fatigue likely due to COVID infection, may also be due to hypoglycemia due to Freestyle Hetal readings dropping to 50s overnight. She also reports dizziness/dysequilib rium and ear fullness. #Fatigue: Likely secondary to COVID infection 05/11/25 and recent hospital admission from 05/11/25 to 05/15/25. Improving. Will monitor. #Type 2 diabetes with hypoglycemia: She has been on Tresiba 36 units daily. She states her blood sugars at home have been dropping to 50s overnight and average reading is 108. A1c is 5.4. Encouraged patient to decrease insulin to Tresiba 24 units daily. Continue freestyle hetal. Patient and very involved with sugar readings and adjusting diet/supplementing sugar as needed. Will f/u in 1-2 weeks for evaluation of sugars, sooner as needed. #Thyroid nodule: Incidental finding of 2.2 cm thyroid nodule noted on CTA. Thyroid panel within normal limitos. Thyroid ultrasound performed 06/07/2025 shows a circumscribed solid, isoechoic nodule in the interpolar area, 2.4 x 2.1 x 2.1 cm, TI-RADS 3. FNA was performed in 2019, during this time size was 2.0 x 1.7 x 2.5 cm. We do not have these records or results of biopsy. Encouraged patient to follow up with endocrinology for recommendations, referral placed today. #Disequilibrium: She reports dizziness with associated bilateral ear pressure. She states symptoms are worse with movement of her head. Likely BPPV. On exam, there is bilateral cerumen in ear canals. Plan for Debrox drops and ear lavage next week. Plan for meclizine as needed. Plan for vestibular therapy. 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 Urgent referral was placed to her neurosurgeon, Dr. Tucker with [facility]. She was cleared for surgery by cardiology. She was referred to pain management due to patient request for morphine however pain management deferred to PCP/neurosurgery. Surgery scheduled 07/22/2025. No bowel or bladder incontinence or saddle anesthesia. #Paroxysmal atrial fibrillation: Regular rhythm. Denies palpitations or chest pain. Continue diltiazem 180 mg daily. She recently was started on carvedilol 3.125 mg BID by cardiology. She has not started the medication yet but plans to today. Continue Eliquis 5 mg daily. Follows closely with [facility] cardiology, Dr. Delarosa. Recently had cardiac stents placed and continues on Plavix for 1 year until 08/2025. 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 #CKD: Follows with Dr. Najera with nephrology. Most recent appointment 04/2025. Most recent BMP 03/05/2025 shows creatinine 0.99, BUN 17, GFR 58. This has down trended. Continue following with nephrology. Avoid nephrotoxic agents. #Carotid artery stenosis: Follows every 6 months for repeat ultrasound with vascular surgery, most recent appointment 04/08/2025. She states she is not a surgical candidate. Intolerant to statins. Continue Repatha 140 mg every 2 weeks. #Glaucoma: Follows regularly with ophthalmology. Continue latanoprost 0.005% 1 drop in each eye nightly #Gout: Follows with podiatry, Dr. Chapman, recently received a cortisone injection. She reports more frequent flares and did have a fall secondary to her toe pain reported to the hospital. Unable to tolerate NSAIDs or colchicine due to CKD. Continue allopurinol 100 mg daily. Monitor kidney function #Hypertension: Continue lisinopril 40 mg daily. Chlorthalidone was discontinued due to risk of gout and she was started on furosemide 20 mg every other day. Will evaluate BMP at next visit to ensure electrolytes are within normal limits. Patient encouraged to continue taking BP at home, on average have been 130/70 #John's esophagus: Continue following with GI every 6 months. All questions have been answered to patient's satisfaction. Patient verbalized understanding of diagnosis and treatments explained. Advised to call sooner prior to next visit it any questions/concerns arise. Case discussed with collaborating physician Jitendra Okeefe who reviewed the assessment and plan. Chart, medications, labs, vital signs reviewed. Dictation was accomplished with the use of [employer] voice recognition software, which is prone to medical misidentifications and grammatical errors. This are unintentional and the practitioner does try to identify and correct these, but some could still be present. Please do not hesitate to contact practitioner for clarification. 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 She also reports dizziness/dysequilib rium and ear fullness. #Fatigue: Likely secondary to COVID infection 05/11/25 and recent hospital admission from 05/11/25 to 05/15/25. Improving. Will monitor. #Type 2 diabetes with hypoglycemia: She has been on Tresiba 36 units daily. She states her blood sugars at home have been dropping to 50s overnight and average reading is 108. A1c is 5.4. Encouraged patient to decrease insulin to Tresiba 24 units daily. Continue freestyle hetal. Patient and very involved with sugar readings and adjusting diet/supplementing sugar as needed. Will f/u in 1-2 weeks for evaluation of sugars, sooner as needed. #Thyroid nodule: Incidental finding of 2.2 cm thyroid nodule noted on CTA. Thyroid panel within normal limitos. Thyroid ultrasound performed 06/07/2025 shows a circumscribed solid, isoechoic nodule in the interpolar area, 2.4 x 2.1 x 2.1 cm, TI-RADS 3. FNA was performed in 2019, during this time size was 2.0 x 1.7 x 2.5 cm. We do not have these records or results of biopsy. Encouraged patient to follow up with endocrinology for recommendations, referral placed today. #Disequilibrium: She reports dizziness with associated bilateral ear pressure. She states symptoms are worse with movement of her head. Likely BPPV. On exam, there is bilateral cerumen in ear canals. Plan for Debrox drops and ear lavage next week. Plan for meclizine as needed. Plan for vestibular therapy. 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 Urgent referral was placed to her neurosurgeon, Dr. Tucker with [facility]. She was cleared for surgery by cardiology. She was referred to pain management due to patient request for morphine however pain management deferred to PCP/neurosurgery. Surgery scheduled 07/22/2025. No bowel or bladder incontinence or saddle anesthesia. #Paroxysmal atrial fibrillation: Regular rhythm. Denies palpitations or chest pain. Continue diltiazem 180 mg daily. She recently was started on carvedilol 3.125 mg BID by cardiology. She has not started the medication yet but plans to today. Continue Eliquis 5 mg daily. Follows closely with [facility] cardiology, Dr. Delarosa. Recently had cardiac stents placed and continues on Plavix for 1 year until 08/2025. 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 #CKD: Follows with Dr. Najera with nephrology. Most recent appointment 04/2025. Most recent BMP 03/05/2025 shows creatinine 0.99, BUN 17, GFR 58. This has down trended. Continue following with nephrology. Avoid nephrotoxic agents. #Carotid artery stenosis: Follows every 6 months for repeat ultrasound with vascular surgery, most recent appointment 04/08/2025. She states she is not a surgical candidate. Intolerant to statins. Continue Repatha 140 mg every 2 weeks. #Glaucoma: Follows regularly with ophthalmology. Continue latanoprost 0.005% 1 drop in each eye nightly #Gout: Follows with podiatry, Dr. Chapman, recently received a cortisone injection. She reports more frequent flares and did have a fall secondary to her toe pain reported to the hospital. Unable to tolerate NSAIDs or colchicine due to CKD. Continue allopurinol 100 mg daily. Monitor kidney function #Hypertension: Continue lisinopril 40 mg daily. Chlorthalidone was discontinued due to risk of gout and she was started on furosemide 20 mg every other day. Will evaluate BMP at next visit to ensure electrolytes are within normal limits. Patient encouraged to continue taking BP at home, on average have been 130/70 #John's esophagus: Continue following with GI every 6 months. All questions have been answered to patient's satisfaction. Patient verbalized understanding of diagnosis and treatments explained. Advised to call sooner prior to next visit it any questions/concerns arise. Case discussed with collaborating physician Jitendra Okeefe who reviewed the assessment and plan. Chart, medications, labs, vital signs reviewed. Dictation was accomplished with the use of [employer] voice recognition software, which is prone to medical misidentifications and grammatical errors. This are unintentional and the practitioner does try to identify and correct these, but some could still be present. Please do not hesitate to contact practitioner for clarification. 06/14/2025 Ear fullness, left (ICD-10 - H93.8X2) 06/08/2025 Hypertension, essential (ICD-10 - I10) Starr is a 79-year-old female with past medical history of hyperlipidemia, paroxysmal atrial fibrillation, rate controlled, carotid artery stenosis, CKD, glaucoma, type 2 diabetes, gout, hypertension, John's esophagus, and CVA in 2021 who presents for follow up regarding significant fatigue likely due to COVID infection, may also be due to hypoglycemia due to Freestyle Hetal readings dropping to 50s overnight. She also reports dizziness/dysequilib rium and ear fullness. #Fatigue: Likely secondary to COVID infection 05/11/25 and recent hospital admission from 05/11/25 to 05/15/25. Improving. Will monitor. #Type 2 diabetes with hypoglycemia: She has been on Tresiba 36 units daily. She states her blood sugars at home have been dropping to 50s overnight and average reading is 108. A1c is 5.4. Encouraged patient to decrease insulin to Tresiba 24 units daily. Continue freestyle hetal. Patient and very involved with sugar readings and adjusting diet/supplementing sugar as needed. Will f/u in 1-2 weeks for evaluation of sugars, sooner as needed. #Thyroid nodule: Incidental finding of 2.2 cm thyroid nodule noted on CTA. Thyroid panel within normal limitos. Thyroid ultrasound performed 06/07/2025 shows a circumscribed solid, isoechoic nodule in the interpolar area, 2.4 x 2.1 x 2.1 cm, TI-RADS 3. FNA was performed in 2019, during this time size was 2.0 x 1.7 x 2.5 cm. We do not have these records or results of biopsy. Encouraged patient to follow up with endocrinology for recommendations, referral placed today. #Disequilibrium: She reports dizziness with associated bilateral ear pressure. She states symptoms are worse with movement of her head. Likely BPPV. On exam, there is bilateral cerumen in ear canals. Plan for Debrox drops and ear lavage next week. Plan for meclizine as needed. Plan for vestibular therapy. 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 Urgent referral was placed to her neurosurgeon, Dr. Tucker with [facility]. She was cleared for surgery by cardiology. She was referred to pain management due to patient request for morphine however pain management deferred to PCP/neurosurgery. Surgery scheduled 07/22/2025. No bowel or bladder incontinence or saddle anesthesia. #Paroxysmal atrial fibrillation: Regular rhythm. Denies palpitations or chest pain. Continue diltiazem 180 mg daily. She recently was started on carvedilol 3.125 mg BID by cardiology. She has not started the medication yet but plans to today. Continue Eliquis 5 mg daily. Follows closely with [facility] cardiology, Dr. Delarosa. Recently had cardiac stents placed and continues on Plavix for 1 year until 08/2025. 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 #CKD: Follows with Dr. Najera with nephrology. Most recent appointment 04/2025. Most recent BMP 03/05/2025 shows creatinine 0.99, BUN 17, GFR 58. This has down trended. Continue following with nephrology. Avoid nephrotoxic agents. #Carotid artery stenosis: Follows every 6 months for repeat ultrasound with vascular surgery, most recent appointment 04/08/2025. She states she is not a surgical candidate. Intolerant to statins. Continue Repatha 140 mg every 2 weeks. #Glaucoma: Follows regularly with ophthalmology. Continue latanoprost 0.005% 1 drop in each eye nightly #Gout: Follows with podiatry, Dr. Chapman, recently received a cortisone injection. She reports more frequent flares and did have a fall secondary to her toe pain reported to the hospital. Unable to tolerate NSAIDs or colchicine due to CKD. Continue allopurinol 100 mg daily. Monitor kidney function #Hypertension: Continue lisinopril 40 mg daily. Chlorthalidone was discontinued due to risk of gout and she was started on furosemide 20 mg every other day. Will evaluate BMP at next visit to ensure electrolytes are within normal limits. Patient encouraged to continue taking BP at home, on average have been 130/70 #John's esophagus: Continue following with GI every 6 months. All questions have been answered to patient's satisfaction. Patient verbalized understanding of diagnosis and treatments explained. Advised to call sooner prior to next visit it any questions/concerns arise. Case discussed with collaborating physician Jitendra Okeefe who reviewed the assessment and plan. Chart, medications, labs, vital signs reviewed. Dictation was accomplished with the use of Fore[employer] voice recognition software, which is prone to medical misidentifications and grammatical errors. This are unintentional and the practitioner does try to identify and correct these, but some could still be present. Please do not hesitate to contact practitioner for clarification. 06/14/2025 Ear fullness, right (ICD-10 - H93.8X1) 05/25/2025 Hyperlipidemia, mixed (ICD-10 - E78.2) Starr is a 79-year-old female with past medical history of hyperlipidemia, paroxysmal atrial fibrillation, rate controlled, carotid artery stenosis, CKD, glaucoma, type 2 diabetes, gout, hypertension, John's esophagus, and CVA in 2021 who presents for follow up regarding right thigh pain, found to have large disc extrusion. Noted to be admitted to [facility] 05/11/2025 until 05/15/2025 due to concern for stroke, fevers, positive COVID infection. #COVID: Tested positive in the hospital 05/11/2025. Associated fevers, weakness, fatigue. Chest x-ray negative. Reports ongoing weakness and fatigue. Encourage patient to hydrate and to rest. #Encephalopathy: Was a stroke alert in the ED. Imaging unremarkable. Neurology believes this may be secondary to encephalopathy due to infection. Mentating well today. Will continue to monitor mental status. #Fatigue: Likely secondary to COVID infection and recent hospital admission. Will repeat CBC and CMP. May be secondary to hypoglycemia due to low readings in the hospital. Freestyle hetal given to patient today to monitor sugars. #Thyroid nodule: Incidental finding of 2.2 cm thyroid nodule noted on CTA. Thyroid panel within normal limits. Plan for thyroid ultrasound for further evaluation. 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 Urgent referral was placed to her neurosurgeon, Dr. Tucker with [facility]. She was cleared for surgery by cardiology. She was referred to pain management due to patient request for morphine however pain management deferred to PCP/neurosurgery. Surgery scheduled 07/22/2025. No bowel or bladder incontinence or saddle anesthesia. #Paroxysmal atrial fibrillation: Regular rhythm. Denies palpitations or chest pain. Continue diltiazem 180 mg daily. Continue Eliquis 5 mg daily. Follows closely with [facility] cardiology, Dr. Delarosa. Recently had cardiac stents placed and continues on Plavix for 1 year until 08/2025. Consider metoprolol succinate addition, encouraged patient to discuss with Dr. Delarosa next week. Advised patient to monitor HR at home. 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 #CKD: Follows with Dr. Najera with nephrology. Most recent appointment 04/2025. Most recent BMP 03/05/2025 shows creatinine 0.99, BUN 17, GFR 58. This has down trended. Continue following with nephrology. Avoid nephrotoxic agents. #Carotid artery stenosis: Follows every 6 months for repeat ultrasound with vascular surgery, most recent appointment 04/08/2025. She states she is not a surgical candidate. Intolerant to statins. Continue Repatha 140 mg every 2 weeks. #Glaucoma: Follows regularly with ophthalmology. Continue latanoprost 0.005% 1 drop in each eye nightly #Type 2 diabetes: She has been on Tresiba 36 units daily. She states her blood sugars at home on average are just above 100. A1c is 5.4. Will consider cutting down insulin, will address at future appt when thigh pain is more controlled. #Gout: Follows with podiatry, Dr. Chapman, recently received a cortisone injection. She reports more frequent flares and did have a fall secondary to her toe pain reported to the hospital. Unable to tolerate NSAIDs or colchicine due to CKD. Continue allopurinol 100 mg daily. Monitor kidney function #Hypertension: Continue lisinopril 40 mg daily. Chlorthalidone was discontinued due to risk of gout and she was started on furosemide 20 mg every other day. Will consider increasing furosemide to daily. Will evaluate BMP at next visit to ensure electrolytes are within normal limits. Patient encouraged to continue taking BP at home, on average have been 130/70 #John's esophagus: Continue following with GI every 6 months. All questions have been answered to patient's satisfaction. Patient verbalized understanding of diagnosis and treatments explained. Advised to call sooner prior to next visit it any questions/concerns arise. Case discussed with collaborating physician Jitendra Okeefe who reviewed the assessment and plan. Chart, medications, labs, vital signs reviewed. Dictation was accomplished with the use of Fore[employer] voice recognition software, which is prone to medical misidentifications and grammatical errors. This are unintentional and the practitioner does try to identify and correct these, but some could still be present. Please do not hesitate to contact practitioner for clarification. 04/28/2025 Hypertension, essential (ICD-10 - I10) Virginia is a 79-year-old female with past medical history of hyperlipidemia, paroxysmal atrial fibrillation, rate controlled, carotid artery stenosis, CKD, glaucoma, type 2 diabetes, gout, hypertension, John's esophagus, and CVA in 2021 who presents for follow up regarding right thigh pain. #Right thigh pain: X-ray without acute abnormality, showed mild arthritis. On exam, tenderness to palpation over right groin soft tissue/musculature. Intolerance to tramadol and muscle relaxers. Encouraged to continue avoiding NSAIDs. Plan for MRI lumbar spine for further evaluation. She does have prior hardware due to previous surgery. Will evaluate to ensure there has been no movement of hardware versus nerve compression versus other etiology of pain. She has been utilizing prednisone prescribed by podiatry for gout. Encouraged patient to limit use of prednisone. Will send prednisone 5 mg tablets to taper down. #Paroxysmal atrial fibrillation: Regular rhythm. Denies palpitations or chest pain. Continue diltiazem 180 mg daily. Continue Eliquis 5 mg daily. Follows closely with [facility] cardiology, Dr. Delarosa. Recently had cardiac stents placed and continues on Plavix for 1 year until 08/2025. Consider metoprolol succinate addition, encouraged patient to discuss with Dr. Delarosa. Advised patient to monitor HR at home. 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 #CKD: Follows with Dr. Najera with nephrology. Upcoming appointment 04/2025. Most recent BMP 03/05/2025 shows creatinine 0.99, BUN 17, GFR 58. This has down trended. Continue following with nephrology. Avoid nephrotoxic agents. #Carotid artery stenosis: Follows every 6 months for repeat ultrasound with vascular surgery, most recent appointment 04/08/2025. She states she is not a surgical candidate. Intolerant to statins. Continue Repatha 140 mg every 2 weeks. #Glaucoma: Follows regularly with ophthalmology. Continue latanoprost 0.005% 1 drop in each eye nightly #Type 2 diabetes: She has been on Tresiba 36 units daily. She states her blood sugars at home on average are just above 100. A1c is 5.4. Will consider cutting down insulin, will address at future appt when thigh pain is more controlled. #Gout: Follows with podiatry, Dr. Chapman, recently received a cortisone injection. She reports more frequent flares and did have a fall secondary to her toe pain reported to the hospital. Unable to tolerate NSAIDs or colchicine due to CKD. Continue allopurinol 100 mg daily. Monitor kidney function #Hypertension: . BP elevated today. Continue lisinopril 40 mg daily. Chlorthalidone was discontinued due to risk of gout and she was started on furosemide 20 mg every other day. Will consider increasing furosemide to daily. Will evaluate BMP at next visit to ensure electrolytes are within normal limits. Will continue to monitor at this visit as well. Patient encouraged to continue taking BP at home, on average have been 130/70 #John's esophagus: Continue following with GI every 6 months. All questions have been answered to patient's satisfaction. Patient verbalized understanding of diagnosis and treatments explained. Advised to call sooner prior to next visit it any questions/concerns arise. Case discussed with collaborating physician Jitendra Okeefe who reviewed the assessment and plan. Chart, medications, labs, vital signs reviewed. Dictation was accomplished with the use of [employer] voice recognition software, which is prone to medical misidentifications and grammatical errors. This are unintentional and the practitioner does try to identify and correct these, but some could still be present. Please do not hesitate to contact practitioner for clarification. 04/15/2025 Hypertension, essential (ICD-10 - I10) Starr is a 79-year-old female with past medical history of hyperlipidemia, paroxysmal atrial fibrillation, rate controlled, carotid artery stenosis, CKD, glaucoma, type 2 diabetes, gout, hypertension, John's esophagus, and CVA in 2021 who presents for follow up regarding right thigh pain. #Right thigh pain: X-ray without acute abnormality, showed mild arthritis. On exam, tenderness to palpation over right groin soft tissue/musculature. Pain likely secondary to muscle strain due to prior physical therapy exercises. Plan for muscle relaxer as needed at night. Educated on side effects including drowsiness, dizziness or lightheadedness, and increased risk of falls. Encouraged to continue avoiding NSAIDs. Will follow-up in 2 weeks. Consider physical therapy in the future. #UTI: Urinalysis shows positive nitrates, positive WBC esterase, positive bacteria. Patient denies dysuria but does report urinary frequency and urgency which is new. Will treat with Augmentin. #Paroxysmal atrial fibrillation: Tachycardic today to 106. Regular rhythm. Denies palpitations or chest pain. Continue diltiazem 180 mg daily. Continue Eliquis 5 mg daily. Follows closely with [facility] cardiology, Dr. Delarosa. Recently had cardiac stents placed and continues on Plavix for 1 year until 08/2025. Consider metoprolol succinate addition, encouraged patient to discuss with Dr. Delarosa. Advised patient to monitor HR at home. 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 #CKD: Follows with Dr. Najera with nephrology. Upcoming appointment 04/2025. Most recent BMP 03/05/2025 shows creatinine 0.99, BUN 17, GFR 58. This has down trended. Continue following with nephrology. Avoid nephrotoxic agents. #Carotid artery stenosis: Follows every 6 months for repeat ultrasound with vascular surgery, most recent appointment 04/08/2025. She states she is not a surgical candidate. Intolerant to statins. Continue Repatha 140 mg every 2 weeks. #Glaucoma: Follows regularly with ophthalmology. Continue latanoprost 0.005% 1 drop in each eye nightly #Type 2 diabetes: She has been on Tresiba 36 units daily. She states her blood sugars at home on average are just above 100. Discussed transitioning to Mounjaro 2.5 weekly injections for A1c reduction and weight loss. Discussed side effects including constipation, nausea, reflux, hair thinning. Plan to review records and previously trialed medications. Will consider transition at next visit in 1 week. #Gout: Follows with podiatry, Dr. Chapman, recently received a cortisone injection. She reports more frequent flares and did have a fall secondary to her toe pain reported to the hospital. Unable to tolerate NSAIDs or colchicine due to CKD. Plan for allopurinol 100 mg daily. Monitor kidney function #Hypertension: BP more controlled today with increasing lisinopril to 40 mg daily, and addition of chlorthalidone 25 mg daily. #John's esophagus: Continue following with GI every 6 months. All questions have been answered to patient's satisfaction. Patient verbalized understanding of diagnosis and treatments explained. Advised to call sooner prior to next visit it any questions/concerns arise. Case discussed with collaborating physician Jitendra Okeefe who reviewed the assessment and plan. Chart, medications, labs, vital signs reviewed. Dictation was accomplished with the use of [employer] voice recognition software, which is prone to medical misidentifications and grammatical errors. This are unintentional and the practitioner does try to identify and correct these, but some could still be present. Please do not hesitate to contact practitioner for clarification. 04/08/2025 Hypertension, essential (ICD-10 - I10) Starr is a 79-year-old female with past medical history of hyperlipidemia, paroxysmal atrial fibrillation, rate controlled, carotid artery stenosis, CKD, glaucoma, type 2 diabetes, gout, hypertension, John's esophagus, and CVA in 2021 who presents for routine follow-up. #Right thigh pain: Ongoing for 2 weeks, limiting ambulation. Patient currently ambulating with a cane due to severe pain. Denies injury or trauma. Likely due to osteoarthritis. Plan for x-ray right hip. Patient unable to tolerate NSAIDs given CKD and bleeding risk with concomitant use of Eliquis and Plavix. Plan for tramadol 25 mg nightly. Educated patient on side effects of tramadol including dizziness, drowsiness, constipation, respiratory depression, increased risk of falls, and addiction risk. Controlled substance contract signed today. Will follow-up in 1 week. #Paroxysmal atrial fibrillation: Tachycardic today to 106. Regular rhythm. Denies palpitations or chest pain. Continue diltiazem 180 mg daily. Continue Eliquis 5 mg daily. Follows closely with [facility] cardiology, Dr. Delarosa. Recently had cardiac stents placed and continues on Plavix for 1 year until 08/2025. Consider metoprolol succinate addition, encouraged patient to discuss with Dr. Delarosa. Advised patient to monitor HR at home. 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 #CKD: Follows with Dr. Najera with nephrology. Upcoming appointment 04/2025. Most recent BMP 03/05/2025 shows creatinine 0.99, BUN 17, GFR 58. This has down trended. Continue following with nephrology. Avoid nephrotoxic agents. #Carotid artery stenosis: Follows every 6 months for repeat ultrasound with vascular surgery, most recent appointment upcoming today 04/08/2025. She states she is not a surgical candidate. Intolerant to statins. Continue Repatha 140 mg every 2 weeks. #Glaucoma: Follows regularly with ophthalmology. Continue latanoprost 0.005% 1 drop in each eye nightly #Type 2 diabetes: She has been on Tresiba 36 units daily. She states her blood sugars at home on average are just above 100. Discussed transitioning to Mounjaro 2.5 weekly injections for A1c reduction and weight loss. Discussed side effects including constipation, nausea, reflux, hair thinning. Plan to review records and previously trialed medications. Will consider transition at next visit in 1 week. #Gout: Follows with podiatry, Dr. Chapman, recently received a cortisone injection. She reports more frequent flares and did have a fall secondary to her toe pain reported to the hospital. Unable to tolerate NSAIDs or colchicine due to CKD. Plan for allopurinol 100 mg daily. Monitor kidney function #Hypertension: BP more controlled today with increasing lisinopril to 40 mg daily, and addition of chlorthalidone 25 mg daily. #John's esophagus: Continue following with GI every 6 months. All questions have been answered to patient's satisfaction. Patient verbalized understanding of diagnosis and treatments explained. Advised to call sooner prior to next visit it any questions/concerns arise. Case discussed with collaborating physician Jitendra Okeefe who reviewed the assessment and plan. Chart, medications, labs, vital signs reviewed. Dictation was accomplished with the use of [employer] voice recognition software, which is prone to medical misidentifications and grammatical errors. This are unintentional and the practitioner does try to identify and correct these, but some could still be present. Please do not hesitate to contact practitioner for clarification. 03/04/2025 Diabetes type 2, controlled (ICD-10 - E11.9) 03/04/2025 Stenosis of right carotid artery (ICD-10 - I65.21) Patient is welcomed to the practice. They are coming from Dr. Magallanes. Last complete physical exam with labs August 2024. Medications, medical history, allergies, surgeries, hospitalizations, family history, and social history were reviewed. Problem list updated. Cardiopulmonary and abdominal exam unremarkable. Patient will follow-up in office. All patient questions answered at this time. #Health maintenance: Follows regularly with dentist and eye doctor. Declines LOADERS and further Pap smears. Up-to-date on all vaccines. She believes she is overdue with mammogram at [facility], plans to schedule. She will be due for repeat colonoscopy with endoscopy August 2025 when she discontinues Plavix. Believes she has had a bone density scan but unsure of date and results. #Paroxysmal atrial fibrillation: Rate controlled. Denies palpitations or chest pain. Continue diltiazem 180 mg daily. Continue Eliquis 5 mg daily. Follows closely with [facility] cardiology, Dr. Delarosa. Recently had cardiac stents placed and continues on Plavix for 1 year until 08/2025. 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 #Carotid artery stenosis: Follows every 6 months for repeat ultrasound with vascular surgery, most recent appointment upcoming 03/2025. She states she is not a surgical candidate. Intolerant to statins. Continue Repatha 140 mg every 2 weeks. #Glaucoma: Follows regularly with ophthalmology. Continue latanoprost 0.005% 1 drop in each eye nightly #Type 2 diabetes: She has been on Tresiba 36 units daily. She states her blood sugars at home on average are just above 100. Discussed transitioning to Mounjaro 2.5 weekly injections for A1c reduction and weight loss. Discussed side effects including constipation, nausea, reflux, hair thinning. Plan to review records and previously trialed medications. Will consider transition at next visit. F/u in 4 weeks. #Gout: Follows with podiatry, Dr. Chapman, recently received a cortisone injection. She reports more frequent flares and did have a fall secondary to her toe pain reported to the hospital. Patient states she does not have CKD, however, Dr. Chapman's most recent note mentions a history of CKD. Will hold off on starting allopurinol until kidney function is confirmed to determine dosing. #Hypertension: BP today 150/88, 162/94. She recently had her lisinopril decreased from 40 to 20 mg in the hospital. Unclear whether this was due to JUSTINE versus concern for worsening uric acid levels and gout. Will review notes. Continue lisinopril 20 mg at this time. Will consider increasing dose or adding additional antihypertensive at next visit in 1 month. #John's esophagus: Continue following with GI every 6 months. Total time spent today was 60 minutes of which greater than 50% was spent on coordinating and counseling All questions have been answered to patient's satisfaction. Patient verbalized understanding of diagnosis and treatments explained. Advised to call sooner prior to next visit it any questions/concerns arise. Case discussed with collaborating physician Jitendra Okeefe who reviewed the assessment and plan. Chart, medications, labs, vital signs reviewed. Dictation was accomplished with the use of [employer] voice recognition software, which is prone to medical misidentifications and grammatical errors. This are unintentional and the practitioner does try to identify and correct these, but some could still be present. Please do not hesitate to contact practitioner for clarification. 03/04/2025 Chronic gout of left foot, unspecified cause (ICD-10 - M1A.0720) Patient is welcomed to the practice. They are coming from Dr. Magallanes. Last complete physical exam with labs August 2024. Medications, medical history, allergies, surgeries, hospitalizations, family history, and social history were reviewed. Problem list updated. Cardiopulmonary and abdominal exam unremarkable. Patient will follow-up in office. All patient questions answered at this time. #Health maintenance: Follows regularly with dentist and eye doctor. Declines LOADERS and further Pap smears. Up-to-date on all vaccines. She believes she is overdue with mammogram at [facility], plans to schedule. She will be due for repeat colonoscopy with endoscopy August 2025 when she discontinues Plavix. Believes she has had a bone density scan but unsure of date and results. #Paroxysmal atrial fibrillation: Rate controlled. Denies palpitations or chest pain. Continue diltiazem 180 mg daily. Continue Eliquis 5 mg daily. Follows closely with [facility] cardiology, Dr. Delarosa. Recently had cardiac stents placed and continues on Plavix for 1 year until 08/2025. 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 #Carotid artery stenosis: Follows every 6 months for repeat ultrasound with vascular surgery, most recent appointment upcoming 03/2025. She states she is not a surgical candidate. Intolerant to statins. Continue Repatha 140 mg every 2 weeks. #Glaucoma: Follows regularly with ophthalmology. Continue latanoprost 0.005% 1 drop in each eye nightly #Type 2 diabetes: She has been on Tresiba 36 units daily. She states her blood sugars at home on average are just above 100. Discussed transitioning to Mounjaro 2.5 weekly injections for A1c reduction and weight loss. Discussed side effects including constipation, nausea, reflux, hair thinning. Plan to review records and previously trialed medications. Will consider transition at next visit. F/u in 4 weeks. #Gout: Follows with podiatry, Dr. Chapman, recently received a cortisone injection. She reports more frequent flares and did have a fall secondary to her toe pain reported to the hospital. Patient states she does not have CKD, however, Dr. Chapman's most recent note mentions a history of CKD. Will hold off on starting allopurinol until kidney function is confirmed to determine dosing. #Hypertension: BP today 150/88, 162/94. She recently had her lisinopril decreased from 40 to 20 mg in the hospital. Unclear whether this was due to JUSTINE versus concern for worsening uric acid levels and gout. Will review notes. Continue lisinopril 20 mg at this time. Will consider increasing dose or adding additional antihypertensive at next visit in 1 month. #John's esophagus: Continue following with GI every 6 months. Total time spent today was 60 minutes of which greater than 50% was spent on coordinating and counseling All questions have been answered to patient's satisfaction. Patient verbalized understanding of diagnosis and treatments explained. Advised to call sooner prior to next visit it any questions/concerns arise. Case discussed with collaborating physician Jitendra Okeefe who reviewed the assessment and plan. Chart, medications, labs, vital signs reviewed. Dictation was accomplished with the use of Foremost voice recognition software, which is prone to medical misidentifications and grammatical errors. This are unintentional and the practitioner does try to identify and correct these, but some could still be present. Please do not hesitate to contact practitioner for clarification. 03/04/2025 Screening for thyroid disorder (ICD-10 - Z13.29) 04/08/2025 Stenosis of right carotid artery (ICD-10 - I65.21) Starr is a 79-year-old female with past medical history of hyperlipidemia, paroxysmal atrial fibrillation, rate controlled, carotid artery stenosis, CKD, glaucoma, type 2 diabetes, gout, hypertension, John's esophagus, and CVA in 2021 who presents for routine follow-up. #Right thigh pain: Ongoing for 2 weeks, limiting ambulation. Patient currently ambulating with a cane due to severe pain. Denies injury or trauma. Likely due to osteoarthritis. Plan for x-ray right hip. Patient unable to tolerate NSAIDs given CKD and bleeding risk with concomitant use of Eliquis and Plavix. Plan for tramadol 25 mg nightly. Educated patient on side effects of tramadol including dizziness, drowsiness, constipation, respiratory depression, increased risk of falls, and addiction risk. Controlled substance contract signed today. Will follow-up in 1 week. #Paroxysmal atrial fibrillation: Tachycardic today to 106. Regular rhythm. Denies palpitations or chest pain. Continue diltiazem 180 mg daily. Continue Eliquis 5 mg daily. Follows closely with [facility], Dr. Delarosa. Recently had cardiac stents placed and continues on Plavix for 1 year until 08/2025. Consider metoprolol succinate addition, encouraged patient to discuss with Dr. Delarosa. Advised patient to monitor HR at home. 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 #CKD: Follows with Dr. Najera with nephrology. Upcoming appointment 04/2025. Most recent BMP 03/05/2025 shows creatinine 0.99, BUN 17, GFR 58. This has down trended. Continue following with nephrology. Avoid nephrotoxic agents. #Carotid artery stenosis: Follows every 6 months for repeat ultrasound with vascular surgery, most recent appointment upcoming today 04/08/2025. She states she is not a surgical candidate. Intolerant to statins. Continue Repatha 140 mg every 2 weeks. #Glaucoma: Follows regularly with ophthalmology. Continue latanoprost 0.005% 1 drop in each eye nightly #Type 2 diabetes: She has been on Tresiba 36 units daily. She states her blood sugars at home on average are just above 100. Discussed transitioning to Mounjaro 2.5 weekly injections for A1c reduction and weight loss. Discussed side effects including constipation, nausea, reflux, hair thinning. Plan to review records and previously trialed medications. Will consider transition at next visit in 1 week. #Gout: Follows with podiatry, Dr. Chapman, recently received a cortisone injection. She reports more frequent flares and did have a fall secondary to her toe pain reported to the hospital. Unable to tolerate NSAIDs or colchicine due to CKD. Plan for allopurinol 100 mg daily. Monitor kidney function #Hypertension: BP more controlled today with increasing lisinopril to 40 mg daily, and addition of chlorthalidone 25 mg daily. #John's esophagus: Continue following with GI every 6 months. All questions have been answered to patient's satisfaction. Patient verbalized understanding of diagnosis and treatments explained. Advised to call sooner prior to next visit it any questions/concerns arise. Case discussed with collaborating physician Jitendra Okeefe who reviewed the assessment and plan. Chart, medications, labs, vital signs reviewed. Dictation was accomplished with the use of Foremost voice recognition software, which is prone to medical misidentifications and grammatical errors. This are unintentional and the practitioner does try to identify and correct these, but some could still be present. Please do not hesitate to contact practitioner for clarification. 04/15/2025 Stenosis of right carotid artery (ICD-10 - I65.21) Virginia is a 79-year-old female with past medical history of hyperlipidemia, paroxysmal atrial fibrillation, rate controlled, carotid artery stenosis, CKD, glaucoma, type 2 diabetes, gout, hypertension, John's esophagus, and CVA in 2021 who presents for follow up regarding right thigh pain. #Right thigh pain: X-ray without acute abnormality, showed mild arthritis. On exam, tenderness to palpation over right groin soft tissue/musculature. Pain likely secondary to muscle strain due to prior physical therapy exercises. Plan for muscle relaxer as needed at night. Educated on side effects including drowsiness, dizziness or lightheadedness, and increased risk of falls. Encouraged to continue avoiding NSAIDs. Will follow-up in 2 weeks. Consider physical therapy in the future. #UTI: Urinalysis shows positive nitrates, positive WBC esterase, positive bacteria. Patient denies dysuria but does report urinary frequency and urgency which is new. Will treat with Augmentin. #Paroxysmal atrial fibrillation: Tachycardic today to 106. Regular rhythm. Denies palpitations or chest pain. Continue diltiazem 180 mg daily. Continue Eliquis 5 mg daily. Follows closely with [facility] cardiology, Dr. Delarosa. Recently had cardiac stents placed and continues on Plavix for 1 year until 08/2025. Consider metoprolol succinate addition, encouraged patient to discuss with Dr. Delarosa. Advised patient to monitor HR at home. 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 #CKD: Follows with Dr. Najera with nephrology. Upcoming appointment 04/2025. Most recent BMP 03/05/2025 shows creatinine 0.99, BUN 17, GFR 58. This has down trended. Continue following with nephrology. Avoid nephrotoxic agents. #Carotid artery stenosis: Follows every 6 months for repeat ultrasound with vascular surgery, most recent appointment 04/08/2025. She states she is not a surgical candidate. Intolerant to statins. Continue Repatha 140 mg every 2 weeks. #Glaucoma: Follows regularly with ophthalmology. Continue latanoprost 0.005% 1 drop in each eye nightly #Type 2 diabetes: She has been on Tresiba 36 units daily. She states her blood sugars at home on average are just above 100. Discussed transitioning to Mounjaro 2.5 weekly injections for A1c reduction and weight loss. Discussed side effects including constipation, nausea, reflux, hair thinning. Plan to review records and previously trialed medications. Will consider transition at next visit in 1 week. #Gout: Follows with podiatry, Dr. Chapman, recently received a cortisone injection. She reports more frequent flares and did have a fall secondary to her toe pain reported to the hospital. Unable to tolerate NSAIDs or colchicine due to CKD. Plan for allopurinol 100 mg daily. Monitor kidney function #Hypertension: BP more controlled today with increasing lisinopril to 40 mg daily, and addition of chlorthalidone 25 mg daily. #John's esophagus: Continue following with GI every 6 months. All questions have been answered to patient's satisfaction. Patient verbalized understanding of diagnosis and treatments explained. Advised to call sooner prior to next visit it any questions/concerns arise. Case discussed with collaborating physician Jitendra Okeefe who reviewed the assessment and plan. Chart, medications, labs, vital signs reviewed. Dictation was accomplished with the use of Foremost voice recognition software, which is prone to medical misidentifications and grammatical errors. This are unintentional and the practitioner does try to identify and correct these, but some could still be present. Please do not hesitate to contact practitioner for clarification. 04/28/2025 Stenosis of right carotid artery (ICD-10 - I65.21) Starr is a 79-year-old female with past medical history of hyperlipidemia, paroxysmal atrial fibrillation, rate controlled, carotid artery stenosis, CKD, glaucoma, type 2 diabetes, gout, hypertension, John's esophagus, and CVA in 2021 who presents for follow up regarding right thigh pain. #Right thigh pain: X-ray without acute abnormality, showed mild arthritis. On exam, tenderness to palpation over right groin soft tissue/musculature. Intolerance to tramadol and muscle relaxers. Encouraged to continue avoiding NSAIDs. Plan for MRI lumbar spine for further evaluation. She does have prior hardware due to previous surgery. Will evaluate to ensure there has been no movement of hardware versus nerve compression versus other etiology of pain. She has been utilizing prednisone prescribed by podiatry for gout. Encouraged patient to limit use of prednisone. Will send prednisone 5 mg tablets to taper down. #Paroxysmal atrial fibrillation: Regular rhythm. Denies palpitations or chest pain. Continue diltiazem 180 mg daily. Continue Eliquis 5 mg daily. Follows closely with [facility] cardiology, Dr. Delarosa. Recently had cardiac stents placed and continues on Plavix for 1 year until 08/2025. Consider metoprolol succinate addition, encouraged patient to discuss with Dr. Delarosa. Advised patient to monitor HR at home. 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 #CKD: Follows with Dr. Najera with nephrology. Upcoming appointment 04/2025. Most recent BMP 03/05/2025 shows creatinine 0.99, BUN 17, GFR 58. This has down trended. Continue following with nephrology. Avoid nephrotoxic agents. #Carotid artery stenosis: Follows every 6 months for repeat ultrasound with vascular surgery, most recent appointment 04/08/2025. She states she is not a surgical candidate. Intolerant to statins. Continue Repatha 140 mg every 2 weeks. #Glaucoma: Follows regularly with ophthalmology. Continue latanoprost 0.005% 1 drop in each eye nightly #Type 2 diabetes: She has been on Tresiba 36 units daily. She states her blood sugars at home on average are just above 100. A1c is 5.4. Will consider cutting down insulin, will address at future appt when thigh pain is more controlled. #Gout: Follows with podiatry, Dr. Chapman, recently received a cortisone injection. She reports more frequent flares and did have a fall secondary to her toe pain reported to the hospital. Unable to tolerate NSAIDs or colchicine due to CKD. Continue allopurinol 100 mg daily. Monitor kidney function #Hypertension: . BP elevated today. Continue lisinopril 40 mg daily. Chlorthalidone was discontinued due to risk of gout and she was started on furosemide 20 mg every other day. Will consider increasing furosemide to daily. Will evaluate BMP at next visit to ensure electrolytes are within normal limits. Will continue to monitor at this visit as well. Patient encouraged to continue taking BP at home, on average have been 130/70 #John's esophagus: Continue following with GI every 6 months. All questions have been answered to patient's satisfaction. Patient verbalized understanding of diagnosis and treatments explained. Advised to call sooner prior to next visit it any questions/concerns arise. Case discussed with collaborating physician Jitendra Okeefe who reviewed the assessment and plan. Chart, medications, labs, vital signs reviewed. Dictation was accomplished with the use of Foremost voice recognition software, which is prone to medical misidentifications and grammatical errors. This are unintentional and the practitioner does try to identify and correct these, but some could still be present. Please do not hesitate to contact practitioner for clarification. 06/08/2025 Stenosis of right carotid artery (ICD-10 - I65.21) Starr is a 79-year-old female with past medical history of hyperlipidemia, paroxysmal atrial fibrillation, rate controlled, carotid artery stenosis, CKD, glaucoma, type 2 diabetes, gout, hypertension, John's esophagus, and CVA in 2021 who presents for follow up regarding significant fatigue likely due to COVID infection, may also be due to hypoglycemia due to Freestyle Hetal readings dropping to 50s overnight. She also reports dizziness/dysequilib rium and ear fullness. #Fatigue: Likely secondary to COVID infection 05/11/25 and recent hospital admission from 05/11/25 to 05/15/25. Improving. Will monitor. #Type 2 diabetes with hypoglycemia: She has been on Tresiba 36 units daily. She states her blood sugars at home have been dropping to 50s overnight and average reading is 108. A1c is 5.4. Encouraged patient to decrease insulin to Tresiba 24 units daily. Continue freestyle hetal. Patient and very involved with sugar readings and adjusting diet/supplementing sugar as needed. Will f/u in 1-2 weeks for evaluation of sugars, sooner as needed. #Thyroid nodule: Incidental finding of 2.2 cm thyroid nodule noted on CTA. Thyroid panel within normal limitos. Thyroid ultrasound performed 06/07/2025 shows a circumscribed solid, isoechoic nodule in the interpolar area, 2.4 x 2.1 x 2.1 cm, TI-RADS 3. FNA was performed in 2019, during this time size was 2.0 x 1.7 x 2.5 cm. We do not have these records or results of biopsy. Encouraged patient to follow up with endocrinology for recommendations, referral placed today. #Disequilibrium: She reports dizziness with associated bilateral ear pressure. She states symptoms are worse with movement of her head. Likely BPPV. On exam, there is bilateral cerumen in ear canals. Plan for Debrox drops and ear lavage next week. Plan for meclizine as needed. Plan for vestibular therapy. 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 Urgent referral was placed to her neurosurgeon, Dr. Tucker with [facility]. She was cleared for surgery by cardiology. She was referred to pain management due to patient request for morphine however pain management deferred to PCP/neurosurgery. Surgery scheduled 07/22/2025. No bowel or bladder incontinence or saddle anesthesia. #Paroxysmal atrial fibrillation: Regular rhythm. Denies palpitations or chest pain. Continue diltiazem 180 mg daily. She recently was started on carvedilol 3.125 mg BID by cardiology. She has not started the medication yet but plans to today. Continue Eliquis 5 mg daily. Follows closely with [facility] cardiology, Dr. Delarosa. Recently had cardiac stents placed and continues on Plavix for 1 year until 08/2025. 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 #CKD: Follows with Dr. Najera with nephrology. Most recent appointment 04/2025. Most recent BMP 03/05/2025 shows creatinine 0.99, BUN 17, GFR 58. This has down trended. Continue following with nephrology. Avoid nephrotoxic agents. #Carotid artery stenosis: Follows every 6 months for repeat ultrasound with vascular surgery, most recent appointment 04/08/2025. She states she is not a surgical candidate. Intolerant to statins. Continue Repatha 140 mg every 2 weeks. #Glaucoma: Follows regularly with ophthalmology. Continue latanoprost 0.005% 1 drop in each eye nightly #Gout: Follows with podiatry, Dr. Chapman, recently received a cortisone injection. She reports more frequent flares and did have a fall secondary to her toe pain reported to the hospital. Unable to tolerate NSAIDs or colchicine due to CKD. Continue allopurinol 100 mg daily. Monitor kidney function #Hypertension: Continue lisinopril 40 mg daily. Chlorthalidone was discontinued due to risk of gout and she was started on furosemide 20 mg every other day. Will evaluate BMP at next visit to ensure electrolytes are within normal limits. Patient encouraged to continue taking BP at home, on average have been 130/70 #John's esophagus: Continue following with GI every 6 months. All questions have been answered to patient's satisfaction. Patient verbalized understanding of diagnosis and treatments explained. Advised to call sooner prior to next visit it any questions/concerns arise. Case discussed with collaborating physician Jitendra Okeefe who reviewed the assessment and plan. Chart, medications, labs, vital signs reviewed. Dictation was accomplished with the use of Foremost voice recognition software, which is prone to medical misidentifications and grammatical errors. This are unintentional and the practitioner does try to identify and correct these, but some could still be present. Please do not hesitate to contact practitioner for clarification. 05/25/2025 Hypertension, essential (ICD-10 - I10) Starr is a 79-year-old female with past medical history of hyperlipidemia, paroxysmal atrial fibrillation, rate controlled, carotid artery stenosis, CKD, glaucoma, type 2 diabetes, gout, hypertension, John's esophagus, and CVA in 2021 who presents for follow up regarding right thigh pain, found to have large disc extrusion. Noted to be admitted to [facility] 05/11/2025 until 05/15/2025 due to concern for stroke, fevers, positive COVID infection. #COVID: Tested positive in the hospital 05/11/2025. Associated fevers, weakness, fatigue. Chest x-ray negative. Reports ongoing weakness and fatigue. Encourage patient to hydrate and to rest. #Encephalopathy: Was a stroke alert in the ED. Imaging unremarkable. Neurology believes this may be secondary to encephalopathy due to infection. Mentating well today. Will continue to monitor mental status. #Fatigue: Likely secondary to COVID infection and recent hospital admission. Will repeat CBC and CMP. May be secondary to hypoglycemia due to low readings in the hospital. Freestyle hetal given to patient today to monitor sugars. #Thyroid nodule: Incidental finding of 2.2 cm thyroid nodule noted on CTA. Thyroid panel within normal limits. Plan for thyroid ultrasound for further evaluation. 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 Urgent referral was placed to her neurosurgeon, Dr. Tucker with [facility]. She was cleared for surgery by cardiology. She was referred to pain management due to patient request for morphine however pain management deferred to PCP/neurosurgery. Surgery scheduled 07/22/2025. No bowel or bladder incontinence or saddle anesthesia. #Paroxysmal atrial fibrillation: Regular rhythm. Denies palpitations or chest pain. Continue diltiazem 180 mg daily. Continue Eliquis 5 mg daily. Follows closely with [facility] cardiology, Dr. Delarosa. Recently had cardiac stents placed and continues on Plavix for 1 year until 08/2025. Consider metoprolol succinate addition, encouraged patient to discuss with Dr. Delarosa next week. Advised patient to monitor HR at home. 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 #CKD: Follows with Dr. Najera with nephrology. Most recent appointment 04/2025. Most recent BMP 03/05/2025 shows creatinine 0.99, BUN 17, GFR 58. This has down trended. Continue following with nephrology. Avoid nephrotoxic agents. #Carotid artery stenosis: Follows every 6 months for repeat ultrasound with vascular surgery, most recent appointment 04/08/2025. She states she is not a surgical candidate. Intolerant to statins. Continue Repatha 140 mg every 2 weeks. #Glaucoma: Follows regularly with ophthalmology. Continue latanoprost 0.005% 1 drop in each eye nightly #Type 2 diabetes: She has been on Tresiba 36 units daily. She states her blood sugars at home on average are just above 100. A1c is 5.4. Will consider cutting down insulin, will address at future appt when thigh pain is more controlled. #Gout: Follows with podiatry, Dr. Chapman, recently received a cortisone injection. She reports more frequent flares and did have a fall secondary to her toe pain reported to the hospital. Unable to tolerate NSAIDs or colchicine due to CKD. Continue allopurinol 100 mg daily. Monitor kidney function #Hypertension: Continue lisinopril 40 mg daily. Chlorthalidone was discontinued due to risk of gout and she was started on furosemide 20 mg every other day. Will consider increasing furosemide to daily. Will evaluate BMP at next visit to ensure electrolytes are within normal limits. Patient encouraged to continue taking BP at home, on average have been 130/70 #John's esophagus: Continue following with GI every 6 months. All questions have been answered to patient's satisfaction. Patient verbalized understanding of diagnosis and treatments explained. Advised to call sooner prior to next visit it any questions/concerns arise. Case discussed with collaborating physician Jitendra Okeefe who reviewed the assessment and plan. Chart, medications, labs, vital signs reviewed. Dictation was accomplished with the use of Foremost voice recognition software, which is prone to medical misidentifications and grammatical errors. This are unintentional and the practitioner does try to identify and correct these, but some could still be present. Please do not hesitate to contact practitioner for clarification. 06/08/2025 Chronic gout of left foot, unspecified cause (ICD-10 - M1A.0720) Starr is a 79-year-old female with past medical history of hyperlipidemia, paroxysmal atrial fibrillation, rate controlled, carotid artery stenosis, CKD, glaucoma, type 2 diabetes, gout, hypertension, John's esophagus, and CVA in 2021 who presents for follow up regarding significant fatigue likely due to COVID infection, may also be due to hypoglycemia due to Freestyle Hetal readings dropping to 50s overnight. She also reports dizziness/dysequilib rium and ear fullness. #Fatigue: Likely secondary to COVID infection 05/11/25 and recent hospital admission from 05/11/25 to 05/15/25. Improving. Will monitor. #Type 2 diabetes with hypoglycemia: She has been on Tresiba 36 units daily. She states her blood sugars at home have been dropping to 50s overnight and average reading is 108. A1c is 5.4. Encouraged patient to decrease insulin to Tresiba 24 units daily. Continue freestyle hetal. Patient and very involved with sugar readings and adjusting diet/supplementing sugar as needed. Will f/u in 1-2 weeks for evaluation of sugars, sooner as needed. #Thyroid nodule: Incidental finding of 2.2 cm thyroid nodule noted on CTA. Thyroid panel within normal limitos. Thyroid ultrasound performed 06/07/2025 shows a circumscribed solid, isoechoic nodule in the interpolar area, 2.4 x 2.1 x 2.1 cm, TI-RADS 3. FNA was performed in 2019, during this time size was 2.0 x 1.7 x 2.5 cm. We do not have these records or results of biopsy. Encouraged patient to follow up with endocrinology for recommendations, referral placed today. #Disequilibrium: She reports dizziness with associated bilateral ear pressure. She states symptoms are worse with movement of her head. Likely BPPV. On exam, there is bilateral cerumen in ear canals. Plan for Debrox drops and ear lavage next week. Plan for meclizine as needed. Plan for vestibular therapy. 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 Urgent referral was placed to her neurosurgeon, Dr. Tucker with [facility]. She was cleared for surgery by cardiology. She was referred to pain management due to patient request for morphine however pain management deferred to PCP/neurosurgery. Surgery scheduled 07/22/2025. No bowel or bladder incontinence or saddle anesthesia. #Paroxysmal atrial fibrillation: Regular rhythm. Denies palpitations or chest pain. Continue diltiazem 180 mg daily. She recently was started on carvedilol 3.125 mg BID by cardiology. She has not started the medication yet but plans to today. Continue Eliquis 5 mg daily. Follows closely with [facility] cardiology, Dr. Delarosa. Recently had cardiac stents placed and continues on Plavix for 1 year until 08/2025. 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 #CKD: Follows with Dr. Najera with nephrology. Most recent appointment 04/2025. Most recent BMP 03/05/2025 shows creatinine 0.99, BUN 17, GFR 58. This has down trended. Continue following with nephrology. Avoid nephrotoxic agents. #Carotid artery stenosis: Follows every 6 months for repeat ultrasound with vascular surgery, most recent appointment 04/08/2025. She states she is not a surgical candidate. Intolerant to statins. Continue Repatha 140 mg every 2 weeks. #Glaucoma: Follows regularly with ophthalmology. Continue latanoprost 0.005% 1 drop in each eye nightly #Gout: Follows with podiatry, Dr. Chapman, recently received a cortisone injection. She reports more frequent flares and did have a fall secondary to her toe pain reported to the hospital. Unable to tolerate NSAIDs or colchicine due to CKD. Continue allopurinol 100 mg daily. Monitor kidney function #Hypertension: Continue lisinopril 40 mg daily. Chlorthalidone was discontinued due to risk of gout and she was started on furosemide 20 mg every other day. Will evaluate BMP at next visit to ensure electrolytes are within normal limits. Patient encouraged to continue taking BP at home, on average have been 130/70 #John's esophagus: Continue following with GI every 6 months. All questions have been answered to patient's satisfaction. Patient verbalized understanding of diagnosis and treatments explained. Advised to call sooner prior to next visit it any questions/concerns arise. Case discussed with collaborating physician Jitendra Okeefe who reviewed the assessment and plan. Chart, medications, labs, vital signs reviewed. Dictation was accomplished with the use of Foremost voice recognition software, which is prone to medical misidentifications and grammatical errors. This are unintentional and the practitioner does try to identify and correct these, but some could still be present. Please do not hesitate to contact practitioner for clarification. 05/25/2025 Stenosis of right carotid artery (ICD-10 - I65.21) Starr is a 79-year-old female with past medical history of hyperlipidemia, paroxysmal atrial fibrillation, rate controlled, carotid artery stenosis, CKD, glaucoma, type 2 diabetes, gout, hypertension, John's esophagus, and CVA in 2021 who presents for follow up regarding right thigh pain, found to have large disc extrusion. Noted to be admitted to [facility] 05/11/2025 until 05/15/2025 due to concern for stroke, fevers, positive COVID infection. #COVID: Tested positive in the hospital 05/11/2025. Associated fevers, weakness, fatigue. Chest x-ray negative. Reports ongoing weakness and fatigue. Encourage patient to hydrate and to rest. #Encephalopathy: Was a stroke alert in the ED. Imaging unremarkable. Neurology believes this may be secondary to encephalopathy due to infection. Mentating well today. Will continue to monitor mental status. #Fatigue: Likely secondary to COVID infection and recent hospital admission. Will repeat CBC and CMP. May be secondary to hypoglycemia due to low readings in the hospital. Freestyle hetal given to patient today to monitor sugars. #Thyroid nodule: Incidental finding of 2.2 cm thyroid nodule noted on CTA. Thyroid panel within normal limits. Plan for thyroid ultrasound for further evaluation. 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 Urgent referral was placed to her neurosurgeon, Dr. Tucker with [facility]. She was cleared for surgery by cardiology. She was referred to pain management due to patient request for morphine however pain management deferred to PCP/neurosurgery. Surgery scheduled 07/22/2025. No bowel or bladder incontinence or saddle anesthesia. #Paroxysmal atrial fibrillation: Regular rhythm. Denies palpitations or chest pain. Continue diltiazem 180 mg daily. Continue Eliquis 5 mg daily. Follows closely with [facility] cardiology, Dr. Delarosa. Recently had cardiac stents placed and continues on Plavix for 1 year until 08/2025. Consider metoprolol succinate addition, encouraged patient to discuss with Dr. Delarosa next week. Advised patient to monitor HR at home. 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 #CKD: Follows with Dr. Najera with nephrology. Most recent appointment 04/2025. Most recent BMP 03/05/2025 shows creatinine 0.99, BUN 17, GFR 58. This has down trended. Continue following with nephrology. Avoid nephrotoxic agents. #Carotid artery stenosis: Follows every 6 months for repeat ultrasound with vascular surgery, most recent appointment 04/08/2025. She states she is not a surgical candidate. Intolerant to statins. Continue Repatha 140 mg every 2 weeks. #Glaucoma: Follows regularly with ophthalmology. Continue latanoprost 0.005% 1 drop in each eye nightly #Type 2 diabetes: She has been on Tresiba 36 units daily. She states her blood sugars at home on average are just above 100. A1c is 5.4. Will consider cutting down insulin, will address at future appt when thigh pain is more controlled. #Gout: Follows with podiatry, Dr. Chapman, recently received a cortisone injection. She reports more frequent flares and did have a fall secondary to her toe pain reported to the hospital. Unable to tolerate NSAIDs or colchicine due to CKD. Continue allopurinol 100 mg daily. Monitor kidney function #Hypertension: Continue lisinopril 40 mg daily. Chlorthalidone was discontinued due to risk of gout and she was started on furosemide 20 mg every other day. Will consider increasing furosemide to daily. Will evaluate BMP at next visit to ensure electrolytes are within normal limits. Patient encouraged to continue taking BP at home, on average have been 130/70 #John's esophagus: Continue following with GI every 6 months. All questions have been answered to patient's satisfaction. Patient verbalized understanding of diagnosis and treatments explained. Advised to call sooner prior to next visit it any questions/concerns arise. Case discussed with collaborating physician Jitendra Okeefe who reviewed the assessment and plan. Chart, medications, labs, vital signs reviewed. Dictation was accomplished with the use of Fore[employer] voice recognition software, which is prone to medical misidentifications and grammatical errors. This are unintentional and the practitioner does try to identify and correct these, but some could still be present. Please do not hesitate to contact practitioner for clarification. 04/15/2025 Chronic gout of left foot, unspecified cause (ICD-10 - M1A.0720) Starr is a 79-year-old female with past medical history of hyperlipidemia, paroxysmal atrial fibrillation, rate controlled, carotid artery stenosis, CKD, glaucoma, type 2 diabetes, gout, hypertension, John's esophagus, and CVA in 2021 who presents for follow up regarding right thigh pain. #Right thigh pain: X-ray without acute abnormality, showed mild arthritis. On exam, tenderness to palpation over right groin soft tissue/musculature. Pain likely secondary to muscle strain due to prior physical therapy exercises. Plan for muscle relaxer as needed at night. Educated on side effects including drowsiness, dizziness or lightheadedness, and increased risk of falls. Encouraged to continue avoiding NSAIDs. Will follow-up in 2 weeks. Consider physical therapy in the future. #UTI: Urinalysis shows positive nitrates, positive WBC esterase, positive bacteria. Patient denies dysuria but does report urinary frequency and urgency which is new. Will treat with Augmentin. #Paroxysmal atrial fibrillation: Tachycardic today to 106. Regular rhythm. Denies palpitations or chest pain. Continue diltiazem 180 mg daily. Continue Eliquis 5 mg daily. Follows closely with [facility] cardiology, Dr. Delarosa. Recently had cardiac stents placed and continues on Plavix for 1 year until 08/2025. Consider metoprolol succinate addition, encouraged patient to discuss with Dr. Delarosa. Advised patient to monitor HR at home. 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 #CKD: Follows with Dr. Najera with nephrology. Upcoming appointment 04/2025. Most recent BMP 03/05/2025 shows creatinine 0.99, BUN 17, GFR 58. This has down trended. Continue following with nephrology. Avoid nephrotoxic agents. #Carotid artery stenosis: Follows every 6 months for repeat ultrasound with vascular surgery, most recent appointment 04/08/2025. She states she is not a surgical candidate. Intolerant to statins. Continue Repatha 140 mg every 2 weeks. #Glaucoma: Follows regularly with ophthalmology. Continue latanoprost 0.005% 1 drop in each eye nightly #Type 2 diabetes: She has been on Tresiba 36 units daily. She states her blood sugars at home on average are just above 100. Discussed transitioning to Mounjaro 2.5 weekly injections for A1c reduction and weight loss. Discussed side effects including constipation, nausea, reflux, hair thinning. Plan to review records and previously trialed medications. Will consider transition at next visit in 1 week. #Gout: Follows with podiatry, Dr. Chapman, recently received a cortisone injection. She reports more frequent flares and did have a fall secondary to her toe pain reported to the hospital. Unable to tolerate NSAIDs or colchicine due to CKD. Plan for allopurinol 100 mg daily. Monitor kidney function #Hypertension: BP more controlled today with increasing lisinopril to 40 mg daily, and addition of chlorthalidone 25 mg daily. #John's esophagus: Continue following with GI every 6 months. All questions have been answered to patient's satisfaction. Patient verbalized understanding of diagnosis and treatments explained. Advised to call sooner prior to next visit it any questions/concerns arise. Case discussed with collaborating physician Jitendra Okeefe who reviewed the assessment and plan. Chart, medications, labs, vital signs reviewed. Dictation was accomplished with the use of [employer] voice recognition software, which is prone to medical misidentifications and grammatical errors. This are unintentional and the practitioner does try to identify and correct these, but some could still be present. Please do not hesitate to contact practitioner for clarification. 04/28/2025 Chronic gout of left foot, unspecified cause (ICD-10 - M1A.0720) Starr is a 79-year-old female with past medical history of hyperlipidemia, paroxysmal atrial fibrillation, rate controlled, carotid artery stenosis, CKD, glaucoma, type 2 diabetes, gout, hypertension, John's esophagus, and CVA in 2021 who presents for follow up regarding right thigh pain. #Right thigh pain: X-ray without acute abnormality, showed mild arthritis. On exam, tenderness to palpation over right groin soft tissue/musculature. Intolerance to tramadol and muscle relaxers. Encouraged to continue avoiding NSAIDs. Plan for MRI lumbar spine for further evaluation. She does have prior hardware due to previous surgery. Will evaluate to ensure there has been no movement of hardware versus nerve compression versus other etiology of pain. She has been utilizing prednisone prescribed by podiatry for gout. Encouraged patient to limit use of prednisone. Will send prednisone 5 mg tablets to taper down. #Paroxysmal atrial fibrillation: Regular rhythm. Denies palpitations or chest pain. Continue diltiazem 180 mg daily. Continue Eliquis 5 mg daily. Follows closely with [facility] cardiology, Dr. Delarosa. Recently had cardiac stents placed and continues on Plavix for 1 year until 08/2025. Consider metoprolol succinate addition, encouraged patient to discuss with Dr. Delarosa. Advised patient to monitor HR at home. 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 #CKD: Follows with Dr. Najera with nephrology. Upcoming appointment 04/2025. Most recent BMP 03/05/2025 shows creatinine 0.99, BUN 17, GFR 58. This has down trended. Continue following with nephrology. Avoid nephrotoxic agents. #Carotid artery stenosis: Follows every 6 months for repeat ultrasound with vascular surgery, most recent appointment 04/08/2025. She states she is not a surgical candidate. Intolerant to statins. Continue Repatha 140 mg every 2 weeks. #Glaucoma: Follows regularly with ophthalmology. Continue latanoprost 0.005% 1 drop in each eye nightly #Type 2 diabetes: She has been on Tresiba 36 units daily. She states her blood sugars at home on average are just above 100. A1c is 5.4. Will consider cutting down insulin, will address at future appt when thigh pain is more controlled. #Gout: Follows with podiatry, Dr. Chapman, recently received a cortisone injection. She reports more frequent flares and did have a fall secondary to her toe pain reported to the hospital. Unable to tolerate NSAIDs or colchicine due to CKD. Continue allopurinol 100 mg daily. Monitor kidney function #Hypertension: . BP elevated today. Continue lisinopril 40 mg daily. Chlorthalidone was discontinued due to risk of gout and she was started on furosemide 20 mg every other day. Will consider increasing furosemide to daily. Will evaluate BMP at next visit to ensure electrolytes are within normal limits. Will continue to monitor at this visit as well. Patient encouraged to continue taking BP at home, on average have been 130/70 #John's esophagus: Continue following with GI every 6 months. All questions have been answered to patient's satisfaction. Patient verbalized understanding of diagnosis and treatments explained. Advised to call sooner prior to next visit it any questions/concerns arise. Case discussed with collaborating physician Jitendra Okeefe who reviewed the assessment and plan. Chart, medications, labs, vital signs reviewed. Dictation was accomplished with the use of [employer] voice recognition software, which is prone to medical misidentifications and grammatical errors. This are unintentional and the practitioner does try to identify and correct these, but some could still be present. Please do not hesitate to contact practitioner for clarification. 04/08/2025 Chronic gout of left foot, unspecified cause (ICD-10 - M1A.0720) Starr is a 79-year-old female with past medical history of hyperlipidemia, paroxysmal atrial fibrillation, rate controlled, carotid artery stenosis, CKD, glaucoma, type 2 diabetes, gout, hypertension, John's esophagus, and CVA in 2021 who presents for routine follow-up. #Right thigh pain: Ongoing for 2 weeks, limiting ambulation. Patient currently ambulating with a cane due to severe pain. Denies injury or trauma. Likely due to osteoarthritis. Plan for x-ray right hip. Patient unable to tolerate NSAIDs given CKD and bleeding risk with concomitant use of Eliquis and Plavix. Plan for tramadol 25 mg nightly. Educated patient on side effects of tramadol including dizziness, drowsiness, constipation, respiratory depression, increased risk of falls, and addiction risk. Controlled substance contract signed today. Will follow-up in 1 week. #Paroxysmal atrial fibrillation: Tachycardic today to 106. Regular rhythm. Denies palpitations or chest pain. Continue diltiazem 180 mg daily. Continue Eliquis 5 mg daily. Follows closely with [facility] cardiology, Dr. Delarosa. Recently had cardiac stents placed and continues on Plavix for 1 year until 08/2025. Consider metoprolol succinate addition, encouraged patient to discuss with Dr. Delarosa. Advised patient to monitor HR at home. 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 #CKD: Follows with Dr. Najera with nephrology. Upcoming appointment 04/2025. Most recent BMP 03/05/2025 shows creatinine 0.99, BUN 17, GFR 58. This has down trended. Continue following with nephrology. Avoid nephrotoxic agents. #Carotid artery stenosis: Follows every 6 months for repeat ultrasound with vascular surgery, most recent appointment upcoming today 04/08/2025. She states she is not a surgical candidate. Intolerant to statins. Continue Repatha 140 mg every 2 weeks. #Glaucoma: Follows regularly with ophthalmology. Continue latanoprost 0.005% 1 drop in each eye nightly #Type 2 diabetes: She has been on Tresiba 36 units daily. She states her blood sugars at home on average are just above 100. Discussed transitioning to Mounjaro 2.5 weekly injections for A1c reduction and weight loss. Discussed side effects including constipation, nausea, reflux, hair thinning. Plan to review records and previously trialed medications. Will consider transition at next visit in 1 week. #Gout: Follows with podiatry, Dr. Chapman, recently received a cortisone injection. She reports more frequent flares and did have a fall secondary to her toe pain reported to the hospital. Unable to tolerate NSAIDs or colchicine due to CKD. Plan for allopurinol 100 mg daily. Monitor kidney function #Hypertension: BP more controlled today with increasing lisinopril to 40 mg daily, and addition of chlorthalidone 25 mg daily. #John's esophagus: Continue following with GI every 6 months. All questions have been answered to patient's satisfaction. Patient verbalized understanding of diagnosis and treatments explained. Advised to call sooner prior to next visit it any questions/concerns arise. Case discussed with collaborating physician Jitendra Okeefe who reviewed the assessment and plan. Chart, medications, labs, vital signs reviewed. Dictation was accomplished with the use of [employer]most voice recognition software, which is prone to medical misidentifications and grammatical errors. This are unintentional and the practitioner does try to identify and correct these, but some could still be present. Please do not hesitate to contact practitioner for clarification. 03/04/2025 Vitamin B deficiency (ICD-10 - E53.9) 03/04/2025 Paroxysmal atrial fibrillation (ICD-10 - I48.0) Patient is welcomed to the practice. They are coming from Dr. Magallanes. Last complete physical exam with labs August 2024. Medications, medical history, allergies, surgeries, hospitalizations, family history, and social history were reviewed. Problem list updated. Cardiopulmonary and abdominal exam unremarkable. Patient will follow-up in office. All patient questions answered at this time. #Health maintenance: Follows regularly with dentist and eye doctor. Declines LOADERS and further Pap smears. Up-to-date on all vaccines. She believes she is overdue with mammogram at [facility], plans to schedule. She will be due for repeat colonoscopy with endoscopy August 2025 when she discontinues Plavix. Believes she has had a bone density scan but unsure of date and results. #Paroxysmal atrial fibrillation: Rate controlled. Denies palpitations or chest pain. Continue diltiazem 180 mg daily. Continue Eliquis 5 mg daily. Follows closely with [facility] cardiology, Dr. Delarosa. Recently had cardiac stents placed and continues on Plavix for 1 year until 08/2025. 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 #Carotid artery stenosis: Follows every 6 months for repeat ultrasound with vascular surgery, most recent appointment upcoming 03/2025. She states she is not a surgical candidate. Intolerant to statins. Continue Repatha 140 mg every 2 weeks. #Glaucoma: Follows regularly with ophthalmology. Continue latanoprost 0.005% 1 drop in each eye nightly #Type 2 diabetes: She has been on Tresiba 36 units daily. She states her blood sugars at home on average are just above 100. Discussed transitioning to Mounjaro 2.5 weekly injections for A1c reduction and weight loss. Discussed side effects including constipation, nausea, reflux, hair thinning. Plan to review records and previously trialed medications. Will consider transition at next visit. F/u in 4 weeks. #Gout: Follows with podiatry, Dr. Chapman, recently received a cortisone injection. She reports more frequent flares and did have a fall secondary to her toe pain reported to the hospital. Patient states she does not have CKD, however, Dr. Chapman's most recent note mentions a history of CKD. Will hold off on starting allopurinol until kidney function is confirmed to determine dosing. #Hypertension: BP today 150/88, 162/94. She recently had her lisinopril decreased from 40 to 20 mg in the hospital. Unclear whether this was due to JUSTINE versus concern for worsening uric acid levels and gout. Will review notes. Continue lisinopril 20 mg at this time. Will consider increasing dose or adding additional antihypertensive at next visit in 1 month. #John's esophagus: Continue following with GI every 6 months. Total time spent today was 60 minutes of which greater than 50% was spent on coordinating and counseling All questions have been answered to patient's satisfaction. Patient verbalized understanding of diagnosis and treatments explained. Advised to call sooner prior to next visit it any questions/concerns arise. Case discussed with collaborating physician Jitendra Okeefe who reviewed the assessment and plan. Chart, medications, labs, vital signs reviewed. Dictation was accomplished with the use of [employer] voice recognition software, which is prone to medical misidentifications and grammatical errors. This are unintentional and the practitioner does try to identify and correct these, but some could still be present. Please do not hesitate to contact practitioner for clarification. 03/04/2025 Encounter for examination of blood pressure with abnormal findings (ICD-10 - Z01.31) Patient is welcomed to the practice. They are coming from Dr. Magallanes. Last complete physical exam with labs August 2024. Medications, medical history, allergies, surgeries, hospitalizations, family history, and social history were reviewed. Problem list updated. Cardiopulmonary and abdominal exam unremarkable. Patient will follow-up in office. All patient questions answered at this time. #Health maintenance: Follows regularly with dentist and eye doctor. Declines LOADERS and further Pap smears. Up-to-date on all vaccines. She believes she is overdue with mammogram at [facility], plans to schedule. She will be due for repeat colonoscopy with endoscopy August 2025 when she discontinues Plavix. Believes she has had a bone density scan but unsure of date and results. #Paroxysmal atrial fibrillation: Rate controlled. Denies palpitations or chest pain. Continue diltiazem 180 mg daily. Continue Eliquis 5 mg daily. Follows closely with [facility] cardiology, Dr. Delarosa. Recently had cardiac stents placed and continues on Plavix for 1 year until 08/2025. 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 #Carotid artery stenosis: Follows every 6 months for repeat ultrasound with vascular surgery, most recent appointment upcoming 03/2025. She states she is not a surgical candidate. Intolerant to statins. Continue Repatha 140 mg every 2 weeks. #Glaucoma: Follows regularly with ophthalmology. Continue latanoprost 0.005% 1 drop in each eye nightly #Type 2 diabetes: She has been on Tresiba 36 units daily. She states her blood sugars at home on average are just above 100. Discussed transitioning to Mounjaro 2.5 weekly injections for A1c reduction and weight loss. Discussed side effects including constipation, nausea, reflux, hair thinning. Plan to review records and previously trialed medications. Will consider transition at next visit. F/u in 4 weeks. #Gout: Follows with podiatry, Dr. Chapman, recently received a cortisone injection. She reports more frequent flares and did have a fall secondary to her toe pain reported to the hospital. Patient states she does not have CKD, however, Dr. Chapman's most recent note mentions a history of CKD. Will hold off on starting allopurinol until kidney function is confirmed to determine dosing. #Hypertension: BP today 150/88, 162/94. She recently had her lisinopril decreased from 40 to 20 mg in the hospital. Unclear whether this was due to JUSTINE versus concern for worsening uric acid levels and gout. Will review notes. Continue lisinopril 20 mg at this time. Will consider increasing dose or adding additional antihypertensive at next visit in 1 month. #John's esophagus: Continue following with GI every 6 months. Total time spent today was 60 minutes of which greater than 50% was spent on coordinating and counseling All questions have been answered to patient's satisfaction. Patient verbalized understanding of diagnosis and treatments explained. Advised to call sooner prior to next visit it any questions/concerns arise. Case discussed with collaborating physician Jitendra Okeefe who reviewed the assessment and plan. Chart, medications, labs, vital signs reviewed. Dictation was accomplished with the use of Foremost voice recognition software, which is prone to medical misidentifications and grammatical errors. This are unintentional and the practitioner does try to identify and correct these, but some could still be present. Please do not hesitate to contact practitioner for clarification. 04/08/2025 Paroxysmal atrial fibrillation (ICD-10 - I48.0) Virginia is a 79-year-old female with past medical history of hyperlipidemia, paroxysmal atrial fibrillation, rate controlled, carotid artery stenosis, CKD, glaucoma, type 2 diabetes, gout, hypertension, John's esophagus, and CVA in 2021 who presents for routine follow-up. #Right thigh pain: Ongoing for 2 weeks, limiting ambulation. Patient currently ambulating with a cane due to severe pain. Denies injury or trauma. Likely due to osteoarthritis. Plan for x-ray right hip. Patient unable to tolerate NSAIDs given CKD and bleeding risk with concomitant use of Eliquis and Plavix. Plan for tramadol 25 mg nightly. Educated patient on side effects of tramadol including dizziness, drowsiness, constipation, respiratory depression, increased risk of falls, and addiction risk. Controlled substance contract signed today. Will follow-up in 1 week. #Paroxysmal atrial fibrillation: Tachycardic today to 106. Regular rhythm. Denies palpitations or chest pain. Continue diltiazem 180 mg daily. Continue Eliquis 5 mg daily. Follows closely with [facility] cardiology, Dr. Delarosa. Recently had cardiac stents placed and continues on Plavix for 1 year until 08/2025. Consider metoprolol succinate addition, encouraged patient to discuss with Dr. Delarosa. Advised patient to monitor HR at home. 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 #CKD: Follows with Dr. Najera with nephrology. Upcoming appointment 04/2025. Most recent BMP 03/05/2025 shows creatinine 0.99, BUN 17, GFR 58. This has down trended. Continue following with nephrology. Avoid nephrotoxic agents. #Carotid artery stenosis: Follows every 6 months for repeat ultrasound with vascular surgery, most recent appointment upcoming today 04/08/2025. She states she is not a surgical candidate. Intolerant to statins. Continue Repatha 140 mg every 2 weeks. #Glaucoma: Follows regularly with ophthalmology. Continue latanoprost 0.005% 1 drop in each eye nightly #Type 2 diabetes: She has been on Tresiba 36 units daily. She states her blood sugars at home on average are just above 100. Discussed transitioning to Mounjaro 2.5 weekly injections for A1c reduction and weight loss. Discussed side effects including constipation, nausea, reflux, hair thinning. Plan to review records and previously trialed medications. Will consider transition at next visit in 1 week. #Gout: Follows with podiatry, Dr. Chapman, recently received a cortisone injection. She reports more frequent flares and did have a fall secondary to her toe pain reported to the hospital. Unable to tolerate NSAIDs or colchicine due to CKD. Plan for allopurinol 100 mg daily. Monitor kidney function #Hypertension: BP more controlled today with increasing lisinopril to 40 mg daily, and addition of chlorthalidone 25 mg daily. #John's esophagus: Continue following with GI every 6 months. All questions have been answered to patient's satisfaction. Patient verbalized understanding of diagnosis and treatments explained. Advised to call sooner prior to next visit it any questions/concerns arise. Case discussed with collaborating physician Jitendra Okeefe who reviewed the assessment and plan. Chart, medications, labs, vital signs reviewed. Dictation was accomplished with the use of Foremost voice recognition software, which is prone to medical misidentifications and grammatical errors. This are unintentional and the practitioner does try to identify and correct these, but some could still be present. Please do not hesitate to contact practitioner for clarification. 03/04/2025 Vitamin D deficiency (ICD-10 - E55.9) 04/15/2025 Paroxysmal atrial fibrillation (ICD-10 - I48.0) Virginia is a 79-year-old female with past medical history of hyperlipidemia, paroxysmal atrial fibrillation, rate controlled, carotid artery stenosis, CKD, glaucoma, type 2 diabetes, gout, hypertension, John's esophagus, and CVA in 2021 who presents for follow up regarding right thigh pain. #Right thigh pain: X-ray without acute abnormality, showed mild arthritis. On exam, tenderness to palpation over right groin soft tissue/musculature. Pain likely secondary to muscle strain due to prior physical therapy exercises. Plan for muscle relaxer as needed at night. Educated on side effects including drowsiness, dizziness or lightheadedness, and increased risk of falls. Encouraged to continue avoiding NSAIDs. Will follow-up in 2 weeks. Consider physical therapy in the future. #UTI: Urinalysis shows positive nitrates, positive WBC esterase, positive bacteria. Patient denies dysuria but does report urinary frequency and urgency which is new. Will treat with Augmentin. #Paroxysmal atrial fibrillation: Tachycardic today to 106. Regular rhythm. Denies palpitations or chest pain. Continue diltiazem 180 mg daily. Continue Eliquis 5 mg daily. Follows closely with [facility] cardiology, Dr. Delarosa. Recently had cardiac stents placed and continues on Plavix for 1 year until 08/2025. Consider metoprolol succinate addition, encouraged patient to discuss with Dr. Delarosa. Advised patient to monitor HR at home. 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 #CKD: Follows with Dr. Najera with nephrology. Upcoming appointment 04/2025. Most recent BMP 03/05/2025 shows creatinine 0.99, BUN 17, GFR 58. This has down trended. Continue following with nephrology. Avoid nephrotoxic agents. #Carotid artery stenosis: Follows every 6 months for repeat ultrasound with vascular surgery, most recent appointment 04/08/2025. She states she is not a surgical candidate. Intolerant to statins. Continue Repatha 140 mg every 2 weeks. #Glaucoma: Follows regularly with ophthalmology. Continue latanoprost 0.005% 1 drop in each eye nightly #Type 2 diabetes: She has been on Tresiba 36 units daily. She states her blood sugars at home on average are just above 100. Discussed transitioning to Mounjaro 2.5 weekly injections for A1c reduction and weight loss. Discussed side effects including constipation, nausea, reflux, hair thinning. Plan to review records and previously trialed medications. Will consider transition at next visit in 1 week. #Gout: Follows with podiatry, Dr. Chapman, recently received a cortisone injection. She reports more frequent flares and did have a fall secondary to her toe pain reported to the hospital. Unable to tolerate NSAIDs or colchicine due to CKD. Plan for allopurinol 100 mg daily. Monitor kidney function #Hypertension: BP more controlled today with increasing lisinopril to 40 mg daily, and addition of chlorthalidone 25 mg daily. #John's esophagus: Continue following with GI every 6 months. All questions have been answered to patient's satisfaction. Patient verbalized understanding of diagnosis and treatments explained. Advised to call sooner prior to next visit it any questions/concerns arise. Case discussed with collaborating physician Jitendra Okeefe who reviewed the assessment and plan. Chart, medications, labs, vital signs reviewed. Dictation was accomplished with the use of Foremost voice recognition software, which is prone to medical misidentifications and grammatical errors. This are unintentional and the practitioner does try to identify and correct these, but some could still be present. Please do not hesitate to contact practitioner for clarification. 04/28/2025 Paroxysmal atrial fibrillation (ICD-10 - I48.0) Starr is a 79-year-old female with past medical history of hyperlipidemia, paroxysmal atrial fibrillation, rate controlled, carotid artery stenosis, CKD, glaucoma, type 2 diabetes, gout, hypertension, John's esophagus, and CVA in 2021 who presents for follow up regarding right thigh pain. #Right thigh pain: X-ray without acute abnormality, showed mild arthritis. On exam, tenderness to palpation over right groin soft tissue/musculature. Intolerance to tramadol and muscle relaxers. Encouraged to continue avoiding NSAIDs. Plan for MRI lumbar spine for further evaluation. She does have prior hardware due to previous surgery. Will evaluate to ensure there has been no movement of hardware versus nerve compression versus other etiology of pain. She has been utilizing prednisone prescribed by podiatry for gout. Encouraged patient to limit use of prednisone. Will send prednisone 5 mg tablets to taper down. #Paroxysmal atrial fibrillation: Regular rhythm. Denies palpitations or chest pain. Continue diltiazem 180 mg daily. Continue Eliquis 5 mg daily. Follows closely with [facility] cardiology, Dr. Delarosa. Recently had cardiac stents placed and continues on Plavix for 1 year until 08/2025. Consider metoprolol succinate addition, encouraged patient to discuss with Dr. Delarosa. Advised patient to monitor HR at home. 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 #CKD: Follows with Dr. Najera with nephrology. Upcoming appointment 04/2025. Most recent BMP 03/05/2025 shows creatinine 0.99, BUN 17, GFR 58. This has down trended. Continue following with nephrology. Avoid nephrotoxic agents. #Carotid artery stenosis: Follows every 6 months for repeat ultrasound with vascular surgery, most recent appointment 04/08/2025. She states she is not a surgical candidate. Intolerant to statins. Continue Repatha 140 mg every 2 weeks. #Glaucoma: Follows regularly with ophthalmology. Continue latanoprost 0.005% 1 drop in each eye nightly #Type 2 diabetes: She has been on Tresiba 36 units daily. She states her blood sugars at home on average are just above 100. A1c is 5.4. Will consider cutting down insulin, will address at future appt when thigh pain is more controlled. #Gout: Follows with podiatry, Dr. Chapman, recently received a cortisone injection. She reports more frequent flares and did have a fall secondary to her toe pain reported to the hospital. Unable to tolerate NSAIDs or colchicine due to CKD. Continue allopurinol 100 mg daily. Monitor kidney function #Hypertension: . BP elevated today. Continue lisinopril 40 mg daily. Chlorthalidone was discontinued due to risk of gout and she was started on furosemide 20 mg every other day. Will consider increasing furosemide to daily. Will evaluate BMP at next visit to ensure electrolytes are within normal limits. Will continue to monitor at this visit as well. Patient encouraged to continue taking BP at home, on average have been 130/70 #John's esophagus: Continue following with GI every 6 months. All questions have been answered to patient's satisfaction. Patient verbalized understanding of diagnosis and treatments explained. Advised to call sooner prior to next visit it any questions/concerns arise. Case discussed with collaborating physician Jitendra Okeefe who reviewed the assessment and plan. Chart, medications, labs, vital signs reviewed. Dictation was accomplished with the use of Foremost voice recognition software, which is prone to medical misidentifications and grammatical errors. This are unintentional and the practitioner does try to identify and correct these, but some could still be present. Please do not hesitate to contact practitioner for clarification. 05/25/2025 Chronic gout of left foot, unspecified cause (ICD-10 - M1A.0720) Starr is a 79-year-old female with past medical history of hyperlipidemia, paroxysmal atrial fibrillation, rate controlled, carotid artery stenosis, CKD, glaucoma, type 2 diabetes, gout, hypertension, John's esophagus, and CVA in 2021 who presents for follow up regarding right thigh pain, found to have large disc extrusion. Noted to be admitted to [facility] 05/11/2025 until 05/15/2025 due to concern for stroke, fevers, positive COVID infection. #COVID: Tested positive in the hospital 05/11/2025. Associated fevers, weakness, fatigue. Chest x-ray negative. Reports ongoing weakness and fatigue. Encourage patient to hydrate and to rest. #Encephalopathy: Was a stroke alert in the ED. Imaging unremarkable. Neurology believes this may be secondary to encephalopathy due to infection. Mentating well today. Will continue to monitor mental status. #Fatigue: Likely secondary to COVID infection and recent hospital admission. Will repeat CBC and CMP. May be secondary to hypoglycemia due to low readings in the hospital. Freestyle hetal given to patient today to monitor sugars. #Thyroid nodule: Incidental finding of 2.2 cm thyroid nodule noted on CTA. Thyroid panel within normal limits. Plan for thyroid ultrasound for further evaluation. 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 Urgent referral was placed to her neurosurgeon, Dr. Tucker with [facility]. She was cleared for surgery by cardiology. She was referred to pain management due to patient request for morphine however pain management deferred to PCP/neurosurgery. Surgery scheduled 07/22/2025. No bowel or bladder incontinence or saddle anesthesia. #Paroxysmal atrial fibrillation: Regular rhythm. Denies palpitations or chest pain. Continue diltiazem 180 mg daily. Continue Eliquis 5 mg daily. Follows closely with [facility] cardiology, Dr. Delarosa. Recently had cardiac stents placed and continues on Plavix for 1 year until 08/2025. Consider metoprolol succinate addition, encouraged patient to discuss with Dr. Delarosa next week. Advised patient to monitor HR at home. 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 #CKD: Follows with Dr. Najera with nephrology. Most recent appointment 04/2025. Most recent BMP 03/05/2025 shows creatinine 0.99, BUN 17, GFR 58. This has down trended. Continue following with nephrology. Avoid nephrotoxic agents. #Carotid artery stenosis: Follows every 6 months for repeat ultrasound with vascular surgery, most recent appointment 04/08/2025. She states she is not a surgical candidate. Intolerant to statins. Continue Repatha 140 mg every 2 weeks. #Glaucoma: Follows regularly with ophthalmology. Continue latanoprost 0.005% 1 drop in each eye nightly #Type 2 diabetes: She has been on Tresiba 36 units daily. She states her blood sugars at home on average are just above 100. A1c is 5.4. Will consider cutting down insulin, will address at future appt when thigh pain is more controlled. #Gout: Follows with podiatry, Dr. Chapman, recently received a cortisone injection. She reports more frequent flares and did have a fall secondary to her toe pain reported to the hospital. Unable to tolerate NSAIDs or colchicine due to CKD. Continue allopurinol 100 mg daily. Monitor kidney function #Hypertension: Continue lisinopril 40 mg daily. Chlorthalidone was discontinued due to risk of gout and she was started on furosemide 20 mg every other day. Will consider increasing furosemide to daily. Will evaluate BMP at next visit to ensure electrolytes are within normal limits. Patient encouraged to continue taking BP at home, on average have been 130/70 #John's esophagus: Continue following with GI every 6 months. All questions have been answered to patient's satisfaction. Patient verbalized understanding of diagnosis and treatments explained. Advised to call sooner prior to next visit it any questions/concerns arise. Case discussed with collaborating physician Jitendra Okeefe who reviewed the assessment and plan. Chart, medications, labs, vital signs reviewed. Dictation was accomplished with the use of Foremost voice recognition software, which is prone to medical misidentifications and grammatical errors. This are unintentional and the practitioner does try to identify and correct these, but some could still be present. Please do not hesitate to contact practitioner for clarification. 06/08/2025 Paroxysmal atrial fibrillation (ICD-10 - I48.0) Starr is a 79-year-old female with past medical history of hyperlipidemia, paroxysmal atrial fibrillation, rate controlled, carotid artery stenosis, CKD, glaucoma, type 2 diabetes, gout, hypertension, John's esophagus, and CVA in 2021 who presents for follow up regarding significant fatigue likely due to COVID infection, may also be due to hypoglycemia due to Freestyle Hetal readings dropping to 50s overnight. She also reports dizziness/dysequilib rium and ear fullness. #Fatigue: Likely secondary to COVID infection 05/11/25 and recent hospital admission from 05/11/25 to 05/15/25. Improving. Will monitor. #Type 2 diabetes with hypoglycemia: She has been on Tresiba 36 units daily. She states her blood sugars at home have been dropping to 50s overnight and average reading is 108. A1c is 5.4. Encouraged patient to decrease insulin to Tresiba 24 units daily. Continue freestyle hetal. Patient and very involved with sugar readings and adjusting diet/supplementing sugar as needed. Will f/u in 1-2 weeks for evaluation of sugars, sooner as needed. #Thyroid nodule: Incidental finding of 2.2 cm thyroid nodule noted on CTA. Thyroid panel within normal limitos. Thyroid ultrasound performed 06/07/2025 shows a circumscribed solid, isoechoic nodule in the interpolar area, 2.4 x 2.1 x 2.1 cm, TI-RADS 3. FNA was performed in 2019, during this time size was 2.0 x 1.7 x 2.5 cm. We do not have these records or results of biopsy. Encouraged patient to follow up with endocrinology for recommendations, referral placed today. #Disequilibrium: She reports dizziness with associated bilateral ear pressure. She states symptoms are worse with movement of her head. Likely BPPV. On exam, there is bilateral cerumen in ear canals. Plan for Debrox drops and ear lavage next week. Plan for meclizine as needed. Plan for vestibular therapy. 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 Urgent referral was placed to her neurosurgeon, Dr. Tucker with [facility]. She was cleared for surgery by cardiology. She was referred to pain management due to patient request for morphine however pain management deferred to PCP/neurosurgery. Surgery scheduled 07/22/2025. No bowel or bladder incontinence or saddle anesthesia. #Paroxysmal atrial fibrillation: Regular rhythm. Denies palpitations or chest pain. Continue diltiazem 180 mg daily. She recently was started on carvedilol 3.125 mg BID by cardiology. She has not started the medication yet but plans to today. Continue Eliquis 5 mg daily. Follows closely with [facility] cardiology, Dr. Delarosa. Recently had cardiac stents placed and continues on Plavix for 1 year until 08/2025. 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 #CKD: Follows with Dr. Najera with nephrology. Most recent appointment 04/2025. Most recent BMP 03/05/2025 shows creatinine 0.99, BUN 17, GFR 58. This has down trended. Continue following with nephrology. Avoid nephrotoxic agents. #Carotid artery stenosis: Follows every 6 months for repeat ultrasound with vascular surgery, most recent appointment 04/08/2025. She states she is not a surgical candidate. Intolerant to statins. Continue Repatha 140 mg every 2 weeks. #Glaucoma: Follows regularly with ophthalmology. Continue latanoprost 0.005% 1 drop in each eye nightly #Gout: Follows with podiatry, Dr. Chapman, recently received a cortisone injection. She reports more frequent flares and did have a fall secondary to her toe pain reported to the hospital. Unable to tolerate NSAIDs or colchicine due to CKD. Continue allopurinol 100 mg daily. Monitor kidney function #Hypertension: Continue lisinopril 40 mg daily. Chlorthalidone was discontinued due to risk of gout and she was started on furosemide 20 mg every other day. Will evaluate BMP at next visit to ensure electrolytes are within normal limits. Patient encouraged to continue taking BP at home, on average have been 130/70 #John's esophagus: Continue following with GI every 6 months. All questions have been answered to patient's satisfaction. Patient verbalized understanding of diagnosis and treatments explained. Advised to call sooner prior to next visit it any questions/concerns arise. Case discussed with collaborating physician Jitendra Okeefe who reviewed the assessment and plan. Chart, medications, labs, vital signs reviewed. Dictation was accomplished with the use of Foremost voice recognition software, which is prone to medical misidentifications and grammatical errors. This are unintentional and the practitioner does try to identify and correct these, but some could still be present. Please do not hesitate to contact practitioner for clarification. 06/08/2025 John's esophagus with dysplasia (ICD-10 - K22.719) Starr is a 79-year-old female with past medical history of hyperlipidemia, paroxysmal atrial fibrillation, rate controlled, carotid artery stenosis, CKD, glaucoma, type 2 diabetes, gout, hypertension, John's esophagus, and CVA in 2021 who presents for follow up regarding significant fatigue likely due to COVID infection, may also be due to hypoglycemia due to Freestyle Hetal readings dropping to 50s overnight. She also reports dizziness/dysequilib rium and ear fullness. #Fatigue: Likely secondary to COVID infection 05/11/25 and recent hospital admission from 05/11/25 to 05/15/25. Improving. Will monitor. #Type 2 diabetes with hypoglycemia: She has been on Tresiba 36 units daily. She states her blood sugars at home have been dropping to 50s overnight and average reading is 108. A1c is 5.4. Encouraged patient to decrease insulin to Tresiba 24 units daily. Continue freestyle hetal. Patient and very involved with sugar readings and adjusting diet/supplementing sugar as needed. Will f/u in 1-2 weeks for evaluation of sugars, sooner as needed. #Thyroid nodule: Incidental finding of 2.2 cm thyroid nodule noted on CTA. Thyroid panel within normal limitos. Thyroid ultrasound performed 06/07/2025 shows a circumscribed solid, isoechoic nodule in the interpolar area, 2.4 x 2.1 x 2.1 cm, TI-RADS 3. FNA was performed in 2019, during this time size was 2.0 x 1.7 x 2.5 cm. We do not have these records or results of biopsy. Encouraged patient to follow up with endocrinology for recommendations, referral placed today. #Disequilibrium: She reports dizziness with associated bilateral ear pressure. She states symptoms are worse with movement of her head. Likely BPPV. On exam, there is bilateral cerumen in ear canals. Plan for Debrox drops and ear lavage next week. Plan for meclizine as needed. Plan for vestibular therapy. 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 Urgent referral was placed to her neurosurgeon, Dr. Tucker with [facility]. She was cleared for surgery by cardiology. She was referred to pain management due to patient request for morphine however pain management deferred to PCP/neurosurgery. Surgery scheduled 07/22/2025. No bowel or bladder incontinence or saddle anesthesia. #Paroxysmal atrial fibrillation: Regular rhythm. Denies palpitations or chest pain. Continue diltiazem 180 mg daily. She recently was started on carvedilol 3.125 mg BID by cardiology. She has not started the medication yet but plans to today. Continue Eliquis 5 mg daily. Follows closely with [facility] cardiology, Dr. Delarosa. Recently had cardiac stents placed and continues on Plavix for 1 year until 08/2025. 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 #CKD: Follows with Dr. Najera with nephrology. Most recent appointment 04/2025. Most recent BMP 03/05/2025 shows creatinine 0.99, BUN 17, GFR 58. This has down trended. Continue following with nephrology. Avoid nephrotoxic agents. #Carotid artery stenosis: Follows every 6 months for repeat ultrasound with vascular surgery, most recent appointment 04/08/2025. She states she is not a surgical candidate. Intolerant to statins. Continue Repatha 140 mg every 2 weeks. #Glaucoma: Follows regularly with ophthalmology. Continue latanoprost 0.005% 1 drop in each eye nightly #Gout: Follows with podiatry, Dr. Chapman, recently received a cortisone injection. She reports more frequent flares and did have a fall secondary to her toe pain reported to the hospital. Unable to tolerate NSAIDs or colchicine due to CKD. Continue allopurinol 100 mg daily. Monitor kidney function #Hypertension: Continue lisinopril 40 mg daily. Chlorthalidone was discontinued due to risk of gout and she was started on furosemide 20 mg every other day. Will evaluate BMP at next visit to ensure electrolytes are within normal limits. Patient encouraged to continue taking BP at home, on average have been 130/70 #John's esophagus: Continue following with GI every 6 months. All questions have been answered to patient's satisfaction. Patient verbalized understanding of diagnosis and treatments explained. Advised to call sooner prior to next visit it any questions/concerns arise. Case discussed with collaborating physician Jitendra Okeefe who reviewed the assessment and plan. Chart, medications, labs, vital signs reviewed. Dictation was accomplished with the use of Foremost voice recognition software, which is prone to medical misidentifications and grammatical errors. This are unintentional and the practitioner does try to identify and correct these, but some could still be present. Please do not hesitate to contact practitioner for clarification. 05/25/2025 Paroxysmal atrial fibrillation (ICD-10 - I48.0) [place] is a 79-year-old female with past medical history of hyperlipidemia, paroxysmal atrial fibrillation, rate controlled, carotid artery stenosis, CKD, glaucoma, type 2 diabetes, gout, hypertension, John's esophagus, and CVA in 2021 who presents for follow up regarding right thigh pain, found to have large disc extrusion. Noted to be admitted to [facility] 05/11/2025 until 05/15/2025 due to concern for stroke, fevers, positive COVID infection. #COVID: Tested positive in the hospital 05/11/2025. Associated fevers, weakness, fatigue. Chest x-ray negative. Reports ongoing weakness and fatigue. Encourage patient to hydrate and to rest. #Encephalopathy: Was a stroke alert in the ED. Imaging unremarkable. Neurology believes this may be secondary to encephalopathy due to infection. Mentating well today. Will continue to monitor mental status. #Fatigue: Likely secondary to COVID infection and recent hospital admission. Will repeat CBC and CMP. May be secondary to hypoglycemia due to low readings in the hospital. Freestyle hetal given to patient today to monitor sugars. #Thyroid nodule: Incidental finding of 2.2 cm thyroid nodule noted on CTA. Thyroid panel within normal limits. Plan for thyroid ultrasound for further evaluation. 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 Urgent referral was placed to her neurosurgeon, Dr. Tucker with [facility]. She was cleared for surgery by cardiology. She was referred to pain management due to patient request for morphine however pain management deferred to PCP/neurosurgery. Surgery scheduled 07/22/2025. No bowel or bladder incontinence or saddle anesthesia. #Paroxysmal atrial fibrillation: Regular rhythm. Denies palpitations or chest pain. Continue diltiazem 180 mg daily. Continue Eliquis 5 mg daily. Follows closely with [facility] cardiology, Dr. Delarosa. Recently had cardiac stents placed and continues on Plavix for 1 year until 08/2025. Consider metoprolol succinate addition, encouraged patient to discuss with Dr. Delarosa next week. Advised patient to monitor HR at home. 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 #CKD: Follows with Dr. Najera with nephrology. Most recent appointment 04/2025. Most recent BMP 03/05/2025 shows creatinine 0.99, BUN 17, GFR 58. This has down trended. Continue following with nephrology. Avoid nephrotoxic agents. #Carotid artery stenosis: Follows every 6 months for repeat ultrasound with vascular surgery, most recent appointment 04/08/2025. She states she is not a surgical candidate. Intolerant to statins. Continue Repatha 140 mg every 2 weeks. #Glaucoma: Follows regularly with ophthalmology. Continue latanoprost 0.005% 1 drop in each eye nightly #Type 2 diabetes: She has been on Tresiba 36 units daily. She states her blood sugars at home on average are just above 100. A1c is 5.4. Will consider cutting down insulin, will address at future appt when thigh pain is more controlled. #Gout: Follows with podiatry, Dr. Chapman, recently received a cortisone injection. She reports more frequent flares and did have a fall secondary to her toe pain reported to the hospital. Unable to tolerate NSAIDs or colchicine due to CKD. Continue allopurinol 100 mg daily. Monitor kidney function #Hypertension: Continue lisinopril 40 mg daily. Chlorthalidone was discontinued due to risk of gout and she was started on furosemide 20 mg every other day. Will consider increasing furosemide to daily. Will evaluate BMP at next visit to ensure electrolytes are within normal limits. Patient encouraged to continue taking BP at home, on average have been 130/70 #John's esophagus: Continue following with GI every 6 months. All questions have been answered to patient's satisfaction. Patient verbalized understanding of diagnosis and treatments explained. Advised to call sooner prior to next visit it any questions/concerns arise. Case discussed with collaborating physician Jitendra Okeefe who reviewed the assessment and plan. Chart, medications, labs, vital signs reviewed. Dictation was accomplished with the use of Fore[employer] voice recognition software, which is prone to medical misidentifications and grammatical errors. This are unintentional and the practitioner does try to identify and correct these, but some could still be present. Please do not hesitate to contact practitioner for clarification. 04/28/2025 John's esophagus with dysplasia (ICD-10 - K22.719) [place] is a 79-year-old female with past medical history of hyperlipidemia, paroxysmal atrial fibrillation, rate controlled, carotid artery stenosis, CKD, glaucoma, type 2 diabetes, gout, hypertension, John's esophagus, and CVA in 2021 who presents for follow up regarding right thigh pain. #Right thigh pain: X-ray without acute abnormality, showed mild arthritis. On exam, tenderness to palpation over right groin soft tissue/musculature. Intolerance to tramadol and muscle relaxers. Encouraged to continue avoiding NSAIDs. Plan for MRI lumbar spine for further evaluation. She does have prior hardware due to previous surgery. Will evaluate to ensure there has been no movement of hardware versus nerve compression versus other etiology of pain. She has been utilizing prednisone prescribed by podiatry for gout. Encouraged patient to limit use of prednisone. Will send prednisone 5 mg tablets to taper down. #Paroxysmal atrial fibrillation: Regular rhythm. Denies palpitations or chest pain. Continue diltiazem 180 mg daily. Continue Eliquis 5 mg daily. Follows closely with [facility] cardiology, Dr. Delarosa. Recently had cardiac stents placed and continues on Plavix for 1 year until 08/2025. Consider metoprolol succinate addition, encouraged patient to discuss with Dr. Delarosa. Advised patient to monitor HR at home. 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 #CKD: Follows with Dr. Najera with nephrology. Upcoming appointment 04/2025. Most recent BMP 03/05/2025 shows creatinine 0.99, BUN 17, GFR 58. This has down trended. Continue following with nephrology. Avoid nephrotoxic agents. #Carotid artery stenosis: Follows every 6 months for repeat ultrasound with vascular surgery, most recent appointment 04/08/2025. She states she is not a surgical candidate. Intolerant to statins. Continue Repatha 140 mg every 2 weeks. #Glaucoma: Follows regularly with ophthalmology. Continue latanoprost 0.005% 1 drop in each eye nightly #Type 2 diabetes: She has been on Tresiba 36 units daily. She states her blood sugars at home on average are just above 100. A1c is 5.4. Will consider cutting down insulin, will address at future appt when thigh pain is more controlled. #Gout: Follows with podiatry, Dr. Chapman, recently received a cortisone injection. She reports more frequent flares and did have a fall secondary to her toe pain reported to the hospital. Unable to tolerate NSAIDs or colchicine due to CKD. Continue allopurinol 100 mg daily. Monitor kidney function #Hypertension: . BP elevated today. Continue lisinopril 40 mg daily. Chlorthalidone was discontinued due to risk of gout and she was started on furosemide 20 mg every other day. Will consider increasing furosemide to daily. Will evaluate BMP at next visit to ensure electrolytes are within normal limits. Will continue to monitor at this visit as well. Patient encouraged to continue taking BP at home, on average have been 130/70 #John's esophagus: Continue following with GI every 6 months. All questions have been answered to patient's satisfaction. Patient verbalized understanding of diagnosis and treatments explained. Advised to call sooner prior to next visit it any questions/concerns arise. Case discussed with collaborating physician Jitendra Okeefe who reviewed the assessment and plan. Chart, medications, labs, vital signs reviewed. Dictation was accomplished with the use of [employer] voice recognition software, which is prone to medical misidentifications and grammatical errors. This are unintentional and the practitioner does try to identify and correct these, but some could still be present. Please do not hesitate to contact practitioner for clarification. 04/15/2025 John's esophagus with dysplasia (ICD-10 - K22.719) Starr is a 79-year-old female with past medical history of hyperlipidemia, paroxysmal atrial fibrillation, rate controlled, carotid artery stenosis, CKD, glaucoma, type 2 diabetes, gout, hypertension, John's esophagus, and CVA in 2021 who presents for follow up regarding right thigh pain. #Right thigh pain: X-ray without acute abnormality, showed mild arthritis. On exam, tenderness to palpation over right groin soft tissue/musculature. Pain likely secondary to muscle strain due to prior physical therapy exercises. Plan for muscle relaxer as needed at night. Educated on side effects including drowsiness, dizziness or lightheadedness, and increased risk of falls. Encouraged to continue avoiding NSAIDs. Will follow-up in 2 weeks. Consider physical therapy in the future. #UTI: Urinalysis shows positive nitrates, positive WBC esterase, positive bacteria. Patient denies dysuria but does report urinary frequency and urgency which is new. Will treat with Augmentin. #Paroxysmal atrial fibrillation: Tachycardic today to 106. Regular rhythm. Denies palpitations or chest pain. Continue diltiazem 180 mg daily. Continue Eliquis 5 mg daily. Follows closely with [facility] cardiology, Dr. Delarosa. Recently had cardiac stents placed and continues on Plavix for 1 year until 08/2025. Consider metoprolol succinate addition, encouraged patient to discuss with Dr. Delarosa. Advised patient to monitor HR at home. 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 #CKD: Follows with Dr. Najera with nephrology. Upcoming appointment 04/2025. Most recent BMP 03/05/2025 shows creatinine 0.99, BUN 17, GFR 58. This has down trended. Continue following with nephrology. Avoid nephrotoxic agents. #Carotid artery stenosis: Follows every 6 months for repeat ultrasound with vascular surgery, most recent appointment 04/08/2025. She states she is not a surgical candidate. Intolerant to statins. Continue Repatha 140 mg every 2 weeks. #Glaucoma: Follows regularly with ophthalmology. Continue latanoprost 0.005% 1 drop in each eye nightly #Type 2 diabetes: She has been on Tresiba 36 units daily. She states her blood sugars at home on average are just above 100. Discussed transitioning to Mounjaro 2.5 weekly injections for A1c reduction and weight loss. Discussed side effects including constipation, nausea, reflux, hair thinning. Plan to review records and previously trialed medications. Will consider transition at next visit in 1 week. #Gout: Follows with podiatry, Dr. Chapman, recently received a cortisone injection. She reports more frequent flares and did have a fall secondary to her toe pain reported to the hospital. Unable to tolerate NSAIDs or colchicine due to CKD. Plan for allopurinol 100 mg daily. Monitor kidney function #Hypertension: BP more controlled today with increasing lisinopril to 40 mg daily, and addition of chlorthalidone 25 mg daily. #John's esophagus: Continue following with GI every 6 months. All questions have been answered to patient's satisfaction. Patient verbalized understanding of diagnosis and treatments explained. Advised to call sooner prior to next visit it any questions/concerns arise. Case discussed with collaborating physician Jitendra Okeefe who reviewed the assessment and plan. Chart, medications, labs, vital signs reviewed. Dictation was accomplished with the use of Fore[employer] voice recognition software, which is prone to medical misidentifications and grammatical errors. This are unintentional and the practitioner does try to identify and correct these, but some could still be present. Please do not hesitate to contact practitioner for clarification. 04/08/2025 John's esophagus with dysplasia (ICD-10 - K22.719) [place] is a 79-year-old female with past medical history of hyperlipidemia, paroxysmal atrial fibrillation, rate controlled, carotid artery stenosis, CKD, glaucoma, type 2 diabetes, gout, hypertension, John's esophagus, and CVA in 2021 who presents for routine follow-up. #Right thigh pain: Ongoing for 2 weeks, limiting ambulation. Patient currently ambulating with a cane due to severe pain. Denies injury or trauma. Likely due to osteoarthritis. Plan for x-ray right hip. Patient unable to tolerate NSAIDs given CKD and bleeding risk with concomitant use of Eliquis and Plavix. Plan for tramadol 25 mg nightly. Educated patient on side effects of tramadol including dizziness, drowsiness, constipation, respiratory depression, increased risk of falls, and addiction risk. Controlled substance contract signed today. Will follow-up in 1 week. #Paroxysmal atrial fibrillation: Tachycardic today to 106. Regular rhythm. Denies palpitations or chest pain. Continue diltiazem 180 mg daily. Continue Eliquis 5 mg daily. Follows closely with [facility] cardiology, Dr. Delarosa. Recently had cardiac stents placed and continues on Plavix for 1 year until 08/2025. Consider metoprolol succinate addition, encouraged patient to discuss with Dr. Delarosa. Advised patient to monitor HR at home. 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 #CKD: Follows with Dr. Najera with nephrology. Upcoming appointment 04/2025. Most recent BMP 03/05/2025 shows creatinine 0.99, BUN 17, GFR 58. This has down trended. Continue following with nephrology. Avoid nephrotoxic agents. #Carotid artery stenosis: Follows every 6 months for repeat ultrasound with vascular surgery, most recent appointment upcoming today 04/08/2025. She states she is not a surgical candidate. Intolerant to statins. Continue Repatha 140 mg every 2 weeks. #Glaucoma: Follows regularly with ophthalmology. Continue latanoprost 0.005% 1 drop in each eye nightly #Type 2 diabetes: She has been on Tresiba 36 units daily. She states her blood sugars at home on average are just above 100. Discussed transitioning to Mounjaro 2.5 weekly injections for A1c reduction and weight loss. Discussed side effects including constipation, nausea, reflux, hair thinning. Plan to review records and previously trialed medications. Will consider transition at next visit in 1 week. #Gout: Follows with podiatry, Dr. Chapman, recently received a cortisone injection. She reports more frequent flares and did have a fall secondary to her toe pain reported to the hospital. Unable to tolerate NSAIDs or colchicine due to CKD. Plan for allopurinol 100 mg daily. Monitor kidney function #Hypertension: BP more controlled today with increasing lisinopril to 40 mg daily, and addition of chlorthalidone 25 mg daily. #John's esophagus: Continue following with GI every 6 months. All questions have been answered to patient's satisfaction. Patient verbalized understanding of diagnosis and treatments explained. Advised to call sooner prior to next visit it any questions/concerns arise. Case discussed with collaborating physician Jitendra Okeefe who reviewed the assessment and plan. Chart, medications, labs, vital signs reviewed. Dictation was accomplished with the use of [employer] voice recognition software, which is prone to medical misidentifications and grammatical errors. This are unintentional and the practitioner does try to identify and correct these, but some could still be present. Please do not hesitate to contact practitioner for clarification. 03/04/2025 Kidney disease (ICD-10 - N28.9) 03/04/2025 John's esophagus with dysplasia (ICD-10 - K22.719) Patient is welcomed to the practice. They are coming from Dr. Magallanes. Last complete physical exam with labs August 2024. Medications, medical history, allergies, surgeries, hospitalizations, family history, and social history were reviewed. Problem list updated. Cardiopulmonary and abdominal exam unremarkable. Patient will follow-up in office. All patient questions answered at this time. #Health maintenance: Follows regularly with dentist and eye doctor. Declines LOADERS and further Pap smears. Up-to-date on all vaccines. She believes she is overdue with mammogram at [facility], plans to schedule. She will be due for repeat colonoscopy with endoscopy August 2025 when she discontinues Plavix. Believes she has had a bone density scan but unsure of date and results. #Paroxysmal atrial fibrillation: Rate controlled. Denies palpitations or chest pain. Continue diltiazem 180 mg daily. Continue Eliquis 5 mg daily. Follows closely with [facility] cardiology, Dr. Delarosa. Recently had cardiac stents placed and continues on Plavix for 1 year until 08/2025. 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 #Carotid artery stenosis: Follows every 6 months for repeat ultrasound with vascular surgery, most recent appointment upcoming 03/2025. She states she is not a surgical candidate. Intolerant to statins. Continue Repatha 140 mg every 2 weeks. #Glaucoma: Follows regularly with ophthalmology. Continue latanoprost 0.005% 1 drop in each eye nightly #Type 2 diabetes: She has been on Tresiba 36 units daily. She states her blood sugars at home on average are just above 100. Discussed transitioning to Mounjaro 2.5 weekly injections for A1c reduction and weight loss. Discussed side effects including constipation, nausea, reflux, hair thinning. Plan to review records and previously trialed medications. Will consider transition at next visit. F/u in 4 weeks. #Gout: Follows with podiatry, Dr. Chapman, recently received a cortisone injection. She reports more frequent flares and did have a fall secondary to her toe pain reported to the hospital. Patient states she does not have CKD, however, Dr. Chapman's most recent note mentions a history of CKD. Will hold off on starting allopurinol until kidney function is confirmed to determine dosing. #Hypertension: BP today 150/88, 162/94. She recently had her lisinopril decreased from 40 to 20 mg in the hospital. Unclear whether this was due to JUSTINE versus concern for worsening uric acid levels and gout. Will review notes. Continue lisinopril 20 mg at this time. Will consider increasing dose or adding additional antihypertensive at next visit in 1 month. #John's esophagus: Continue following with GI every 6 months. Total time spent today was 60 minutes of which greater than 50% was spent on coordinating and counseling All questions have been answered to patient's satisfaction. Patient verbalized understanding of diagnosis and treatments explained. Advised to call sooner prior to next visit it any questions/concerns arise. Case discussed with collaborating physician Jitendra Okeefe who reviewed the assessment and plan. Chart, medications, labs, vital signs reviewed. Dictation was accomplished with the use of [employer] voice recognition software, which is prone to medical misidentifications and grammatical errors. This are unintentional and the practitioner does try to identify and correct these, but some could still be present. Please do not hesitate to contact practitioner for clarification. 03/04/2025 Diabetes type 2, controlled (ICD-10 - E11.9) Patient is welcomed to the practice. They are coming from Dr. Magallanes. Last complete physical exam with labs August 2024. Medications, medical history, allergies, surgeries, hospitalizations, family history, and social history were reviewed. Problem list updated. Cardiopulmonary and abdominal exam unremarkable. Patient will follow-up in office. All patient questions answered at this time. #Health maintenance: Follows regularly with dentist and eye doctor. Declines LOADERS and further Pap smears. Up-to-date on all vaccines. She believes she is overdue with mammogram at [facility], plans to schedule. She will be due for repeat colonoscopy with endoscopy August 2025 when she discontinues Plavix. Believes she has had a bone density scan but unsure of date and results. #Paroxysmal atrial fibrillation: Rate controlled. Denies palpitations or chest pain. Continue diltiazem 180 mg daily. Continue Eliquis 5 mg daily. Follows closely with [facility] cardiology, Dr. Delarosa. Recently had cardiac stents placed and continues on Plavix for 1 year until 08/2025. 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 #Carotid artery stenosis: Follows every 6 months for repeat ultrasound with vascular surgery, most recent appointment upcoming 03/2025. She states she is not a surgical candidate. Intolerant to statins. Continue Repatha 140 mg every 2 weeks. #Glaucoma: Follows regularly with ophthalmology. Continue latanoprost 0.005% 1 drop in each eye nightly #Type 2 diabetes: She has been on Tresiba 36 units daily. She states her blood sugars at home on average are just above 100. Discussed transitioning to Mounjaro 2.5 weekly injections for A1c reduction and weight loss. Discussed side effects including constipation, nausea, reflux, hair thinning. Plan to review records and previously trialed medications. Will consider transition at next visit. F/u in 4 weeks. #Gout: Follows with podiatry, Dr. Chapman, recently received a cortisone injection. She reports more frequent flares and did have a fall secondary to her toe pain reported to the hospital. Patient states she does not have CKD, however, Dr. Chapman's most recent note mentions a history of CKD. Will hold off on starting allopurinol until kidney function is confirmed to determine dosing. #Hypertension: BP today 150/88, 162/94. She recently had her lisinopril decreased from 40 to 20 mg in the hospital. Unclear whether this was due to JUSTINE versus concern for worsening uric acid levels and gout. Will review notes. Continue lisinopril 20 mg at this time. Will consider increasing dose or adding additional antihypertensive at next visit in 1 month. #John's esophagus: Continue following with GI every 6 months. Total time spent today was 60 minutes of which greater than 50% was spent on coordinating and counseling All questions have been answered to patient's satisfaction. Patient verbalized understanding of diagnosis and treatments explained. Advised to call sooner prior to next visit it any questions/concerns arise. Case discussed with collaborating physician Jitendra Okeefe who reviewed the assessment and plan. Chart, medications, labs, vital signs reviewed. Dictation was accomplished with the use of Foremost voice recognition software, which is prone to medical misidentifications and grammatical errors. This are unintentional and the practitioner does try to identify and correct these, but some could still be present. Please do not hesitate to contact practitioner for clarification. 04/08/2025 Diabetes type 2, controlled (ICD-10 - E11.9) [place] is a 79-year-old female with past medical history of hyperlipidemia, paroxysmal atrial fibrillation, rate controlled, carotid artery stenosis, CKD, glaucoma, type 2 diabetes, gout, hypertension, John's esophagus, and CVA in 2021 who presents for routine follow-up. #Right thigh pain: Ongoing for 2 weeks, limiting ambulation. Patient currently ambulating with a cane due to severe pain. Denies injury or trauma. Likely due to osteoarthritis. Plan for x-ray right hip. Patient unable to tolerate NSAIDs given CKD and bleeding risk with concomitant use of Eliquis and Plavix. Plan for tramadol 25 mg nightly. Educated patient on side effects of tramadol including dizziness, drowsiness, constipation, respiratory depression, increased risk of falls, and addiction risk. Controlled substance contract signed today. Will follow-up in 1 week. #Paroxysmal atrial fibrillation: Tachycardic today to 106. Regular rhythm. Denies palpitations or chest pain. Continue diltiazem 180 mg daily. Continue Eliquis 5 mg daily. Follows closely with [facility] cardiology, Dr. Delarosa. Recently had cardiac stents placed and continues on Plavix for 1 year until 08/2025. Consider metoprolol succinate addition, encouraged patient to discuss with Dr. Delarosa. Advised patient to monitor HR at home. 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 #CKD: Follows with Dr. Najera with nephrology. Upcoming appointment 04/2025. Most recent BMP 03/05/2025 shows creatinine 0.99, BUN 17, GFR 58. This has down trended. Continue following with nephrology. Avoid nephrotoxic agents. #Carotid artery stenosis: Follows every 6 months for repeat ultrasound with vascular surgery, most recent appointment upcoming today 04/08/2025. She states she is not a surgical candidate. Intolerant to statins. Continue Repatha 140 mg every 2 weeks. #Glaucoma: Follows regularly with ophthalmology. Continue latanoprost 0.005% 1 drop in each eye nightly #Type 2 diabetes: She has been on Tresiba 36 units daily. She states her blood sugars at home on average are just above 100. Discussed transitioning to Mounjaro 2.5 weekly injections for A1c reduction and weight loss. Discussed side effects including constipation, nausea, reflux, hair thinning. Plan to review records and previously trialed medications. Will consider transition at next visit in 1 week. #Gout: Follows with podiatry, Dr. Chapman, recently received a cortisone injection. She reports more frequent flares and did have a fall secondary to her toe pain reported to the hospital. Unable to tolerate NSAIDs or colchicine due to CKD. Plan for allopurinol 100 mg daily. Monitor kidney function #Hypertension: BP more controlled today with increasing lisinopril to 40 mg daily, and addition of chlorthalidone 25 mg daily. #Jonh's esophagus: Continue following with GI every 6 months. All questions have been answered to patient's satisfaction. Patient verbalized understanding of diagnosis and treatments explained. Advised to call sooner prior to next visit it any questions/concerns arise. Case discussed with collaborating physician Jitendra Okeefe who reviewed the assessment and plan. Chart, medications, labs, vital signs reviewed. Dictation was accomplished with the use of Foremost voice recognition software, which is prone to medical misidentifications and grammatical errors. This are unintentional and the practitioner does try to identify and correct these, but some could still be present. Please do not hesitate to contact practitioner for clarification. 04/15/2025 Diabetes type 2, controlled (ICD-10 - E11.9) Virginia is a 79-year-old female with past medical history of hyperlipidemia, paroxysmal atrial fibrillation, rate controlled, carotid artery stenosis, CKD, glaucoma, type 2 diabetes, gout, hypertension, John's esophagus, and CVA in 2021 who presents for follow up regarding right thigh pain. #Right thigh pain: X-ray without acute abnormality, showed mild arthritis. On exam, tenderness to palpation over right groin soft tissue/musculature. Pain likely secondary to muscle strain due to prior physical therapy exercises. Plan for muscle relaxer as needed at night. Educated on side effects including drowsiness, dizziness or lightheadedness, and increased risk of falls. Encouraged to continue avoiding NSAIDs. Will follow-up in 2 weeks. Consider physical therapy in the future. #UTI: Urinalysis shows positive nitrates, positive WBC esterase, positive bacteria. Patient denies dysuria but does report urinary frequency and urgency which is new. Will treat with Augmentin. #Paroxysmal atrial fibrillation: Tachycardic today to 106. Regular rhythm. Denies palpitations or chest pain. Continue diltiazem 180 mg daily. Continue Eliquis 5 mg daily. Follows closely with [facility] cardiology, Dr. Delarosa. Recently had cardiac stents placed and continues on Plavix for 1 year until 08/2025. Consider metoprolol succinate addition, encouraged patient to discuss with Dr. Delarosa. Advised patient to monitor HR at home. 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 #CKD: Follows with Dr. Najera with nephrology. Upcoming appointment 04/2025. Most recent BMP 03/05/2025 shows creatinine 0.99, BUN 17, GFR 58. This has down trended. Continue following with nephrology. Avoid nephrotoxic agents. #Carotid artery stenosis: Follows every 6 months for repeat ultrasound with vascular surgery, most recent appointment 04/08/2025. She states she is not a surgical candidate. Intolerant to statins. Continue Repatha 140 mg every 2 weeks. #Glaucoma: Follows regularly with ophthalmology. Continue latanoprost 0.005% 1 drop in each eye nightly #Type 2 diabetes: She has been on Tresiba 36 units daily. She states her blood sugars at home on average are just above 100. Discussed transitioning to Mounjaro 2.5 weekly injections for A1c reduction and weight loss. Discussed side effects including constipation, nausea, reflux, hair thinning. Plan to review records and previously trialed medications. Will consider transition at next visit in 1 week. #Gout: Follows with podiatry, Dr. Chapman, recently received a cortisone injection. She reports more frequent flares and did have a fall secondary to her toe pain reported to the hospital. Unable to tolerate NSAIDs or colchicine due to CKD. Plan for allopurinol 100 mg daily. Monitor kidney function #Hypertension: BP more controlled today with increasing lisinopril to 40 mg daily, and addition of chlorthalidone 25 mg daily. #John's esophagus: Continue following with GI every 6 months. All questions have been answered to patient's satisfaction. Patient verbalized understanding of diagnosis and treatments explained. Advised to call sooner prior to next visit it any questions/concerns arise. Case discussed with collaborating physician Jitendra Okeefe who reviewed the assessment and plan. Chart, medications, labs, vital signs reviewed. Dictation was accomplished with the use of Foremost voice recognition software, which is prone to medical misidentifications and grammatical errors. This are unintentional and the practitioner does try to identify and correct these, but some could still be present. Please do not hesitate to contact practitioner for clarification. 04/28/2025 Diabetes type 2, controlled (ICD-10 - E11.9) Virginia is a 79-year-old female with past medical history of hyperlipidemia, paroxysmal atrial fibrillation, rate controlled, carotid artery stenosis, CKD, glaucoma, type 2 diabetes, gout, hypertension, John's esophagus, and CVA in 2021 who presents for follow up regarding right thigh pain. #Right thigh pain: X-ray without acute abnormality, showed mild arthritis. On exam, tenderness to palpation over right groin soft tissue/musculature. Intolerance to tramadol and muscle relaxers. Encouraged to continue avoiding NSAIDs. Plan for MRI lumbar spine for further evaluation. She does have prior hardware due to previous surgery. Will evaluate to ensure there has been no movement of hardware versus nerve compression versus other etiology of pain. She has been utilizing prednisone prescribed by podiatry for gout. Encouraged patient to limit use of prednisone. Will send prednisone 5 mg tablets to taper down. #Paroxysmal atrial fibrillation: Regular rhythm. Denies palpitations or chest pain. Continue diltiazem 180 mg daily. Continue Eliquis 5 mg daily. Follows [facility] with [facility] cardiology, Dr. Delarosa. Recently had cardiac stents placed and continues on Plavix for 1 year until 08/2025. Consider metoprolol succinate addition, encouraged patient to discuss with Dr. Delarosa. Advised patient to monitor HR at home. 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 #CKD: Follows with Dr. Najera with nephrology. Upcoming appointment 04/2025. Most recent BMP 03/05/2025 shows creatinine 0.99, BUN 17, GFR 58. This has down trended. Continue following with nephrology. Avoid nephrotoxic agents. #Carotid artery stenosis: Follows every 6 months for repeat ultrasound with vascular surgery, most recent appointment 04/08/2025. She states she is not a surgical candidate. Intolerant to statins. Continue Repatha 140 mg every 2 weeks. #Glaucoma: Follows regularly with ophthalmology. Continue latanoprost 0.005% 1 drop in each eye nightly #Type 2 diabetes: She has been on Tresiba 36 units daily. She states her blood sugars at home on average are just above 100. A1c is 5.4. Will consider cutting down insulin, will address at future appt when thigh pain is more controlled. #Gout: Follows with podiatry, Dr. Chapman, recently received a cortisone injection. She reports more frequent flares and did have a fall secondary to her toe pain reported to the hospital. Unable to tolerate NSAIDs or colchicine due to CKD. Continue allopurinol 100 mg daily. Monitor kidney function #Hypertension: . BP elevated today. Continue lisinopril 40 mg daily. Chlorthalidone was discontinued due to risk of gout and she was started on furosemide 20 mg every other day. Will consider increasing furosemide to daily. Will evaluate BMP at next visit to ensure electrolytes are within normal limits. Will continue to monitor at this visit as well. Patient encouraged to continue taking BP at home, on average have been 130/70 #John's esophagus: Continue following with GI every 6 months. All questions have been answered to patient's satisfaction. Patient verbalized understanding of diagnosis and treatments explained. Advised to call sooner prior to next visit it any questions/concerns arise. Case discussed with collaborating physician Jitendra Okeefe who reviewed the assessment and plan. Chart, medications, labs, vital signs reviewed. Dictation was accomplished with the use of Foremost voice recognition software, which is prone to medical misidentifications and grammatical errors. This are unintentional and the practitioner does try to identify and correct these, but some could still be present. Please do not hesitate to contact practitioner for clarification. 05/25/2025 John's esophagus with dysplasia (ICD-10 - K22.719) Starr is a 79-year-old female with past medical history of hyperlipidemia, paroxysmal atrial fibrillation, rate controlled, carotid artery stenosis, CKD, glaucoma, type 2 diabetes, gout, hypertension, John's esophagus, and CVA in 2021 who presents for follow up regarding right thigh pain, found to have large disc extrusion. Noted to be admitted to [facility] 05/11/2025 until 05/15/2025 due to concern for stroke, fevers, positive COVID infection. #COVID: Tested positive in the hospital 05/11/2025. Associated fevers, weakness, fatigue. Chest x-ray negative. Reports ongoing weakness and fatigue. Encourage patient to hydrate and to rest. #Encephalopathy: Was a stroke alert in the ED. Imaging unremarkable. Neurology believes this may be secondary to encephalopathy due to infection. Mentating well today. Will continue to monitor mental status. #Fatigue: Likely secondary to COVID infection and recent hospital admission. Will repeat CBC and CMP. May be secondary to hypoglycemia due to low readings in the hospital. Freestyle hetal given to patient today to monitor sugars. #Thyroid nodule: Incidental finding of 2.2 cm thyroid nodule noted on CTA. Thyroid panel within normal limits. Plan for thyroid ultrasound for further evaluation. 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 Urgent referral was placed to her neurosurgeon, Dr. Tucker with [facility]. She was cleared for surgery by cardiology. She was referred to pain management due to patient request for morphine however pain management deferred to PCP/neurosurgery. Surgery scheduled 07/22/2025. No bowel or bladder incontinence or saddle anesthesia. #Paroxysmal atrial fibrillation: Regular rhythm. Denies palpitations or chest pain. Continue diltiazem 180 mg daily. Continue Eliquis 5 mg daily. Follows closely with [facility], Dr. Delarosa. Recently had cardiac stents placed and continues on Plavix for 1 year until 08/2025. Consider metoprolol succinate addition, encouraged patient to discuss with Dr. Delarosa next week. Advised patient to monitor HR at home. 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 #CKD: Follows with Dr. Najera with nephrology. Most recent appointment 04/2025. Most recent BMP 03/05/2025 shows creatinine 0.99, BUN 17, GFR 58. This has down trended. Continue following with nephrology. Avoid nephrotoxic agents. #Carotid artery stenosis: Follows every 6 months for repeat ultrasound with vascular surgery, most recent appointment 04/08/2025. She states she is not a surgical candidate. Intolerant to statins. Continue Repatha 140 mg every 2 weeks. #Glaucoma: Follows regularly with ophthalmology. Continue latanoprost 0.005% 1 drop in each eye nightly #Type 2 diabetes: She has been on Tresiba 36 units daily. She states her blood sugars at home on average are just above 100. A1c is 5.4. Will consider cutting down insulin, will address at future appt when thigh pain is more controlled. #Gout: Follows with podiatry, Dr. Chapman, recently received a cortisone injection. She reports more frequent flares and did have a fall secondary to her toe pain reported to the hospital. Unable to tolerate NSAIDs or colchicine due to CKD. Continue allopurinol 100 mg daily. Monitor kidney function #Hypertension: Continue lisinopril 40 mg daily. Chlorthalidone was discontinued due to risk of gout and she was started on furosemide 20 mg every other day. Will consider increasing furosemide to daily. Will evaluate BMP at next visit to ensure electrolytes are within normal limits. Patient encouraged to continue taking BP at home, on average have been 130/70 #John's esophagus: Continue following with GI every 6 months. All questions have been answered to patient's satisfaction. Patient verbalized understanding of diagnosis and treatments explained. Advised to call sooner prior to next visit it any questions/concerns arise. Case discussed with collaborating physician Jitendra Okeefe who reviewed the assessment and plan. Chart, medications, labs, vital signs reviewed. Dictation was accomplished with the use of Foremost voice recognition software, which is prone to medical misidentifications and grammatical errors. This are unintentional and the practitioner does try to identify and correct these, but some could still be present. Please do not hesitate to contact practitioner for clarification. 06/08/2025 Lumbar radiculopathy (ICD-10 - M54.16) Starr is a 79-year-old female with past medical history of hyperlipidemia, paroxysmal atrial fibrillation, rate controlled, carotid artery stenosis, CKD, glaucoma, type 2 diabetes, gout, hypertension, John's esophagus, and CVA in 2021 who presents for follow up regarding significant fatigue likely due to COVID infection, may also be due to hypoglycemia due to Freestyle Hetal readings dropping to 50s overnight. She also reports dizziness/dysequilib rium and ear fullness. #Fatigue: Likely secondary to COVID infection 05/11/25 and recent hospital admission from 05/11/25 to 05/15/25. Improving. Will monitor. #Type 2 diabetes with hypoglycemia: She has been on Tresiba 36 units daily. She states her blood sugars at home have been dropping to 50s overnight and average reading is 108. A1c is 5.4. Encouraged patient to decrease insulin to Tresiba 24 units daily. Continue freestyle hetal. Patient and very involved with sugar readings and adjusting diet/supplementing sugar as needed. Will f/u in 1-2 weeks for evaluation of sugars, sooner as needed. #Thyroid nodule: Incidental finding of 2.2 cm thyroid nodule noted on CTA. Thyroid panel within normal limitos. Thyroid ultrasound performed 06/07/2025 shows a circumscribed solid, isoechoic nodule in the interpolar area, 2.4 x 2.1 x 2.1 cm, TI-RADS 3. FNA was performed in 2019, during this time size was 2.0 x 1.7 x 2.5 cm. We do not have these records or results of biopsy. Encouraged patient to follow up with endocrinology for recommendations, referral placed today. #Disequilibrium: She reports dizziness with associated bilateral ear pressure. She states symptoms are worse with movement of her head. Likely BPPV. On exam, there is bilateral cerumen in ear canals. Plan for Debrox drops and ear lavage next week. Plan for meclizine as needed. Plan for vestibular therapy. 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 Urgent referral was placed to her neurosurgeon, Dr. Tucker with [facility]. She was cleared for surgery by cardiology. She was referred to pain management due to patient request for morphine however pain management deferred to PCP/neurosurgery. Surgery scheduled 07/22/2025. No bowel or bladder incontinence or saddle anesthesia. #Paroxysmal atrial fibrillation: Regular rhythm. Denies palpitations or chest pain. Continue diltiazem 180 mg daily. She recently was started on carvedilol 3.125 mg BID by cardiology. She has not started the medication yet but plans to today. Continue Eliquis 5 mg daily. Follows closely with [facility] cardiology, Dr. Delarosa. Recently had cardiac stents placed and continues on Plavix for 1 year until 08/2025. 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 #CKD: Follows with Dr. Najera with nephrology. Most recent appointment 04/2025. Most recent BMP 03/05/2025 shows creatinine 0.99, BUN 17, GFR 58. This has down trended. Continue following with nephrology. Avoid nephrotoxic agents. #Carotid artery stenosis: Follows every 6 months for repeat ultrasound with vascular surgery, most recent appointment 04/08/2025. She states she is not a surgical candidate. Intolerant to statins. Continue Repatha 140 mg every 2 weeks. #Glaucoma: Follows regularly with ophthalmology. Continue latanoprost 0.005% 1 drop in each eye nightly #Gout: Follows with podiatry, Dr. Chapman, recently received a cortisone injection. She reports more frequent flares and did have a fall secondary to her toe pain reported to the hospital. Unable to tolerate NSAIDs or colchicine due to CKD. Continue allopurinol 100 mg daily. Monitor kidney function #Hypertension: Continue lisinopril 40 mg daily. Chlorthalidone was discontinued due to risk of gout and she was started on furosemide 20 mg every other day. Will evaluate BMP at next visit to ensure electrolytes are within normal limits. Patient encouraged to continue taking BP at home, on average have been 130/70 #John's esophagus: Continue following with GI every 6 months. All questions have been answered to patient's satisfaction. Patient verbalized understanding of diagnosis and treatments explained. Advised to call sooner prior to next visit it any questions/concerns arise. Case discussed with collaborating physician Jitendra Okeefe who reviewed the assessment and plan. Chart, medications, labs, vital signs reviewed. Dictation was accomplished with the use of Fore[employer] voice recognition software, which is prone to medical misidentifications and grammatical errors. This are unintentional and the practitioner does try to identify and correct these, but some could still be present. Please do not hesitate to contact practitioner for clarification. 06/08/2025 Thyroid nodule (ICD-10 - E04.1) Starr is a 79-year-old female with past medical history of hyperlipidemia, paroxysmal atrial fibrillation, rate controlled, carotid artery stenosis, CKD, glaucoma, type 2 diabetes, gout, hypertension, John's esophagus, and CVA in 2021 who presents for follow up regarding significant fatigue likely due to COVID infection, may also be due to hypoglycemia due to Freestyle Hetal readings dropping to 50s overnight. She also reports dizziness/dysequilib rium and ear fullness. #Fatigue: Likely secondary to COVID infection 05/11/25 and recent hospital admission from 05/11/25 to 05/15/25. Improving. Will monitor. #Type 2 diabetes with hypoglycemia: She has been on Tresiba 36 units daily. She states her blood sugars at home have been dropping to 50s overnight and average reading is 108. A1c is 5.4. Encouraged patient to decrease insulin to Tresiba 24 units daily. Continue freestyle hetal. Patient and very involved with sugar readings and adjusting diet/supplementing sugar as needed. Will f/u in 1-2 weeks for evaluation of sugars, sooner as needed. #Thyroid nodule: Incidental finding of 2.2 cm thyroid nodule noted on CTA. Thyroid panel within normal limitos. Thyroid ultrasound performed 06/07/2025 shows a circumscribed solid, isoechoic nodule in the interpolar area, 2.4 x 2.1 x 2.1 cm, TI-RADS 3. FNA was performed in 2019, during this time size was 2.0 x 1.7 x 2.5 cm. We do not have these records or results of biopsy. Encouraged patient to follow up with endocrinology for recommendations, referral placed today. #Disequilibrium: She reports dizziness with associated bilateral ear pressure. She states symptoms are worse with movement of her head. Likely BPPV. On exam, there is bilateral cerumen in ear canals. Plan for Debrox drops and ear lavage next week. Plan for meclizine as needed. Plan for vestibular therapy. 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 Urgent referral was placed to her neurosurgeon, Dr. Tucker with [facility]. She was cleared for surgery by cardiology. She was referred to pain management due to patient request for morphine however pain management deferred to PCP/neurosurgery. Surgery scheduled 07/22/2025. No bowel or bladder incontinence or saddle anesthesia. #Paroxysmal atrial fibrillation: Regular rhythm. Denies palpitations or chest pain. Continue diltiazem 180 mg daily. She recently was started on carvedilol 3.125 mg BID by cardiology. She has not started the medication yet but plans to today. Continue Eliquis 5 mg daily. Follows closely with [facility] cardiology, Dr. Delarosa. Recently had cardiac stents placed and continues on Plavix for 1 year until 08/2025. 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 #CKD: Follows with Dr. Najera with nephrology. Most recent appointment 04/2025. Most recent BMP 03/05/2025 shows creatinine 0.99, BUN 17, GFR 58. This has down trended. Continue following with nephrology. Avoid nephrotoxic agents. #Carotid artery stenosis: Follows every 6 months for repeat ultrasound with vascular surgery, most recent appointment 04/08/2025. She states she is not a surgical candidate. Intolerant to statins. Continue Repatha 140 mg every 2 weeks. #Glaucoma: Follows regularly with ophthalmology. Continue latanoprost 0.005% 1 drop in each eye nightly #Gout: Follows with podiatry, Dr. Chapman, recently received a cortisone injection. She reports more frequent flares and did have a fall secondary to her toe pain reported to the hospital. Unable to tolerate NSAIDs or colchicine due to CKD. Continue allopurinol 100 mg daily. Monitor kidney function #Hypertension: Continue lisinopril 40 mg daily. Chlorthalidone was discontinued due to risk of gout and she was started on furosemide 20 mg every other day. Will evaluate BMP at next visit to ensure electrolytes are within normal limits. Patient encouraged to continue taking BP at home, on average have been 130/70 #John's esophagus: Continue following with GI every 6 months. All questions have been answered to patient's satisfaction. Patient verbalized understanding of diagnosis and treatments explained. Advised to call sooner prior to next visit it any questions/concerns arise. Case discussed with collaborating physician Jitendra Okeefe who reviewed the assessment and plan. Chart, medications, labs, vital signs reviewed. Dictation was accomplished with the use of Foremost voice recognition software, which is prone to medical misidentifications and grammatical errors. This are unintentional and the practitioner does try to identify and correct these, but some could still be present. Please do not hesitate to contact practitioner for clarification. 05/25/2025 Lumbar radiculopathy (ICD-10 - M54.16) Starr is a 79-year-old female with past medical history of hyperlipidemia, paroxysmal atrial fibrillation, rate controlled, carotid artery stenosis, CKD, glaucoma, type 2 diabetes, gout, hypertension, John's esophagus, and CVA in 2021 who presents for follow up regarding right thigh pain, found to have large disc extrusion. Noted to be admitted to [facility] 05/11/2025 until 05/15/2025 due to concern for stroke, fevers, positive COVID infection. #COVID: Tested positive in the hospital 05/11/2025. Associated fevers, weakness, fatigue. Chest x-ray negative. Reports ongoing weakness and fatigue. Encourage patient to hydrate and to rest. #Encephalopathy: Was a stroke alert in the ED. Imaging unremarkable. Neurology believes this may be secondary to encephalopathy due to infection. Mentating well today. Will continue to monitor mental status. #Fatigue: Likely secondary to COVID infection and recent hospital admission. Will repeat CBC and CMP. May be secondary to hypoglycemia due to low readings in the hospital. Freestyle hetal given to patient today to monitor sugars. #Thyroid nodule: Incidental finding of 2.2 cm thyroid nodule noted on CTA. Thyroid panel within normal limits. Plan for thyroid ultrasound for further evaluation. 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 Urgent referral was placed to her neurosurgeon, Dr. Tucker with [facility]. She was cleared for surgery by cardiology. She was referred to pain management due to patient request for morphine however pain management deferred to PCP/neurosurgery. Surgery scheduled 07/22/2025. No bowel or bladder incontinence or saddle anesthesia. #Paroxysmal atrial fibrillation: Regular rhythm. Denies palpitations or chest pain. Continue diltiazem 180 mg daily. Continue Eliquis 5 mg daily. Follows closely with [facility] cardiology, Dr. Delarosa. Recently had cardiac stents placed and continues on Plavix for 1 year until 08/2025. Consider metoprolol succinate addition, encouraged patient to discuss with Dr. Delarosa next week. Advised patient to monitor HR at home. 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 #CKD: Follows with Dr. Najera with nephrology. Most recent appointment 04/2025. Most recent BMP 03/05/2025 shows creatinine 0.99, BUN 17, GFR 58. This has down trended. Continue following with nephrology. Avoid nephrotoxic agents. #Carotid artery stenosis: Follows every 6 months for repeat ultrasound with vascular surgery, most recent appointment 04/08/2025. She states she is not a surgical candidate. Intolerant to statins. Continue Repatha 140 mg every 2 weeks. #Glaucoma: Follows regularly with ophthalmology. Continue latanoprost 0.005% 1 drop in each eye nightly #Type 2 diabetes: She has been on Tresiba 36 units daily. She states her blood sugars at home on average are just above 100. A1c is 5.4. Will consider cutting down insulin, will address at future appt when thigh pain is more controlled. #Gout: Follows with podiatry, Dr. Chapman, recently received a cortisone injection. She reports more frequent flares and did have a fall secondary to her toe pain reported to the hospital. Unable to tolerate NSAIDs or colchicine due to CKD. Continue allopurinol 100 mg daily. Monitor kidney function #Hypertension: Continue lisinopril 40 mg daily. Chlorthalidone was discontinued due to risk of gout and she was started on furosemide 20 mg every other day. Will consider increasing furosemide to daily. Will evaluate BMP at next visit to ensure electrolytes are within normal limits. Patient encouraged to continue taking BP at home, on average have been 130/70 #John's esophagus: Continue following with GI every 6 months. All questions have been answered to patient's satisfaction. Patient verbalized understanding of diagnosis and treatments explained. Advised to call sooner prior to next visit it any questions/concerns arise. Case discussed with collaborating physician Jitendra Okeefe who reviewed the assessment and plan. Chart, medications, labs, vital signs reviewed. Dictation was accomplished with the use of Fore[employer] voice recognition software, which is prone to medical misidentifications and grammatical errors. This are unintentional and the practitioner does try to identify and correct these, but some could still be present. Please do not hesitate to contact practitioner for clarification. 04/28/2025 Lumbar radiculopathy (ICD-10 - M54.16) Starr is a 79-year-old female with past medical history of hyperlipidemia, paroxysmal atrial fibrillation, rate controlled, carotid artery stenosis, CKD, glaucoma, type 2 diabetes, gout, hypertension, John's esophagus, and CVA in 2021 who presents for follow up regarding right thigh pain. #Right thigh pain: X-ray without acute abnormality, showed mild arthritis. On exam, tenderness to palpation over right groin soft tissue/musculature. Intolerance to tramadol and muscle relaxers. Encouraged to continue avoiding NSAIDs. Plan for MRI lumbar spine for further evaluation. She does have prior hardware due to previous surgery. Will evaluate to ensure there has been no movement of hardware versus nerve compression versus other etiology of pain. She has been utilizing prednisone prescribed by podiatry for gout. Encouraged patient to limit use of prednisone. Will send prednisone 5 mg tablets to taper down. #Paroxysmal atrial fibrillation: Regular rhythm. Denies palpitations or chest pain. Continue diltiazem 180 mg daily. Continue Eliquis 5 mg daily. Follows closely with [facility] cardiology, Dr. Delarosa. Recently had cardiac stents placed and continues on Plavix for 1 year until 08/2025. Consider metoprolol succinate addition, encouraged patient to discuss with Dr. Delarosa. Advised patient to monitor HR at home. 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 #CKD: Follows with Dr. Najera with nephrology. Upcoming appointment 04/2025. Most recent BMP 03/05/2025 shows creatinine 0.99, BUN 17, GFR 58. This has down trended. Continue following with nephrology. Avoid nephrotoxic agents. #Carotid artery stenosis: Follows every 6 months for repeat ultrasound with vascular surgery, most recent appointment 04/08/2025. She states she is not a surgical candidate. Intolerant to statins. Continue Repatha 140 mg every 2 weeks. #Glaucoma: Follows regularly with ophthalmology. Continue latanoprost 0.005% 1 drop in each eye nightly #Type 2 diabetes: She has been on Tresiba 36 units daily. She states her blood sugars at home on average are just above 100. A1c is 5.4. Will consider cutting down insulin, will address at future appt when thigh pain is more controlled. #Gout: Follows with podiatry, Dr. Chapman, recently received a cortisone injection. She reports more frequent flares and did have a fall secondary to her toe pain reported to the hospital. Unable to tolerate NSAIDs or colchicine due to CKD. Continue allopurinol 100 mg daily. Monitor kidney function #Hypertension: . BP elevated today. Continue lisinopril 40 mg daily. Chlorthalidone was discontinued due to risk of gout and she was started on furosemide 20 mg every other day. Will consider increasing furosemide to daily. Will evaluate BMP at next visit to ensure electrolytes are within normal limits. Will continue to monitor at this visit as well. Patient encouraged to continue taking BP at home, on average have been 130/70 #John's esophagus: Continue following with GI every 6 months. All questions have been answered to patient's satisfaction. Patient verbalized understanding of diagnosis and treatments explained. Advised to call sooner prior to next visit it any questions/concerns arise. Case discussed with collaborating physician Jitendra Okeefe who reviewed the assessment and plan. Chart, medications, labs, vital signs reviewed. Dictation was accomplished with the use of [employer] voice recognition software, which is prone to medical misidentifications and grammatical errors. This are unintentional and the practitioner does try to identify and correct these, but some could still be present. Please do not hesitate to contact practitioner for clarification. 04/15/2025 Acute cystitis without hematuria (ICD-10 - N30.00) Virginia is a 79-year-old female with past medical history of hyperlipidemia, paroxysmal atrial fibrillation, rate controlled, carotid artery stenosis, CKD, glaucoma, type 2 diabetes, gout, hypertension, John's esophagus, and CVA in 2021 who presents for follow up regarding right thigh pain. #Right thigh pain: X-ray without acute abnormality, showed mild arthritis. On exam, tenderness to palpation over right groin soft tissue/musculature. Pain likely secondary to muscle strain due to prior physical therapy exercises. Plan for muscle relaxer as needed at night. Educated on side effects including drowsiness, dizziness or lightheadedness, and increased risk of falls. Encouraged to continue avoiding NSAIDs. Will follow-up in 2 weeks. Consider physical therapy in the future. #UTI: Urinalysis shows positive nitrates, positive WBC esterase, positive bacteria. Patient denies dysuria but does report urinary frequency and urgency which is new. Will treat with Augmentin. #Paroxysmal atrial fibrillation: Tachycardic today to 106. Regular rhythm. Denies palpitations or chest pain. Continue diltiazem 180 mg daily. Continue Eliquis 5 mg daily. Follows closely with [facility] cardiology, Dr. Delarosa. Recently had cardiac stents placed and continues on Plavix for 1 year until 08/2025. Consider metoprolol succinate addition, encouraged patient to discuss with Dr. Delarosa. Advised patient to monitor HR at home. 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 #CKD: Follows with Dr. Najera with nephrology. Upcoming appointment 04/2025. Most recent BMP 03/05/2025 shows creatinine 0.99, BUN 17, GFR 58. This has down trended. Continue following with nephrology. Avoid nephrotoxic agents. #Carotid artery stenosis: Follows every 6 months for repeat ultrasound with vascular surgery, most recent appointment 04/08/2025. She states she is not a surgical candidate. Intolerant to statins. Continue Repatha 140 mg every 2 weeks. #Glaucoma: Follows regularly with ophthalmology. Continue latanoprost 0.005% 1 drop in each eye nightly #Type 2 diabetes: She has been on Tresiba 36 units daily. She states her blood sugars at home on average are just above 100. Discussed transitioning to Mounjaro 2.5 weekly injections for A1c reduction and weight loss. Discussed side effects including constipation, nausea, reflux, hair thinning. Plan to review records and previously trialed medications. Will consider transition at next visit in 1 week. #Gout: Follows with podiatry, Dr. Chapman, recently received a cortisone injection. She reports more frequent flares and did have a fall secondary to her toe pain reported to the hospital. Unable to tolerate NSAIDs or colchicine due to CKD. Plan for allopurinol 100 mg daily. Monitor kidney function #Hypertension: BP more controlled today with increasing lisinopril to 40 mg daily, and addition of chlorthalidone 25 mg daily. #John's esophagus: Continue following with GI every 6 months. All questions have been answered to patient's satisfaction. Patient verbalized understanding of diagnosis and treatments explained. Advised to call sooner prior to next visit it any questions/concerns arise. Case discussed with collaborating physician Jitendra Okeefe who reviewed the assessment and plan. Chart, medications, labs, vital signs reviewed. Dictation was accomplished with the use of [employer] voice recognition software, which is prone to medical misidentifications and grammatical errors. This are unintentional and the practitioner does try to identify and correct these, but some could still be present. Please do not hesitate to contact practitioner for clarification. 04/08/2025 History of stroke (ICD-10 - Z86.73) Starr is a 79-year-old female with past medical history of hyperlipidemia, paroxysmal atrial fibrillation, rate controlled, carotid artery stenosis, CKD, glaucoma, type 2 diabetes, gout, hypertension, John's esophagus, and CVA in 2021 who presents for routine follow-up. #Right thigh pain: Ongoing for 2 weeks, limiting ambulation. Patient currently ambulating with a cane due to severe pain. Denies injury or trauma. Likely due to osteoarthritis. Plan for x-ray right hip. Patient unable to tolerate NSAIDs given CKD and bleeding risk with concomitant use of Eliquis and Plavix. Plan for tramadol 25 mg nightly. Educated patient on side effects of tramadol including dizziness, drowsiness, constipation, respiratory depression, increased risk of falls, and addiction risk. Controlled substance contract signed today. Will follow-up in 1 week. #Paroxysmal atrial fibrillation: Tachycardic today to 106. Regular rhythm. Denies palpitations or chest pain. Continue diltiazem 180 mg daily. Continue Eliquis 5 mg daily. Follows closely with [facility] cardiology, Dr. Delarosa. Recently had cardiac stents placed and continues on Plavix for 1 year until 08/2025. Consider metoprolol succinate addition, encouraged patient to discuss with Dr. Delarosa. Advised patient to monitor HR at home. 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 #CKD: Follows with Dr. Najera with nephrology. Upcoming appointment 04/2025. Most recent BMP 03/05/2025 shows creatinine 0.99, BUN 17, GFR 58. This has down trended. Continue following with nephrology. Avoid nephrotoxic agents. #Carotid artery stenosis: Follows every 6 months for repeat ultrasound with vascular surgery, most recent appointment upcoming today 04/08/2025. She states she is not a surgical candidate. Intolerant to statins. Continue Repatha 140 mg every 2 weeks. #Glaucoma: Follows regularly with ophthalmology. Continue latanoprost 0.005% 1 drop in each eye nightly #Type 2 diabetes: She has been on Tresiba 36 units daily. She states her blood sugars at home on average are just above 100. Discussed transitioning to Mounjaro 2.5 weekly injections for A1c reduction and weight loss. Discussed side effects including constipation, nausea, reflux, hair thinning. Plan to review records and previously trialed medications. Will consider transition at next visit in 1 week. #Gout: Follows with podiatry, Dr. Chapman, recently received a cortisone injection. She reports more frequent flares and did have a fall secondary to her toe pain reported to the hospital. Unable to tolerate NSAIDs or colchicine due to CKD. Plan for allopurinol 100 mg daily. Monitor kidney function #Hypertension: BP more controlled today with increasing lisinopril to 40 mg daily, and addition of chlorthalidone 25 mg daily. #John's esophagus: Continue following with GI every 6 months. All questions have been answered to patient's satisfaction. Patient verbalized understanding of diagnosis and treatments explained. Advised to call sooner prior to next visit it any questions/concerns arise. Case discussed with collaborating physician Jitendra Okeefe who reviewed the assessment and plan. Chart, medications, labs, vital signs reviewed. Dictation was accomplished with the use of Fore[employer] voice recognition software, which is prone to medical misidentifications and grammatical errors. This are unintentional and the practitioner does try to identify and correct these, but some could still be present. Please do not hesitate to contact practitioner for clarification. 03/04/2025 History of stroke (ICD-10 - Z86.73) Patient is welcomed to the practice. They are coming from Dr. Magallanes. Last complete physical exam with labs August 2024. Medications, medical history, allergies, surgeries, hospitalizations, family history, and social history were reviewed. Problem list updated. Cardiopulmonary and abdominal exam unremarkable. Patient will follow-up in office. All patient questions answered at this time. #Health maintenance: Follows regularly with dentist and eye doctor. Declines LOADERS and further Pap smears. Up-to-date on all vaccines. She believes she is overdue with mammogram at [facility], plans to schedule. She will be due for repeat colonoscopy with endoscopy August 2025 when she discontinues Plavix. Believes she has had a bone density scan but unsure of date and results. #Paroxysmal atrial fibrillation: Rate controlled. Denies palpitations or chest pain. Continue diltiazem 180 mg daily. Continue Eliquis 5 mg daily. Follows closely with [facility] cardiology, Dr. Delarosa. Recently had cardiac stents placed and continues on Plavix for 1 year until 08/2025. 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 #Carotid artery stenosis: Follows every 6 months for repeat ultrasound with vascular surgery, most recent appointment upcoming 03/2025. She states she is not a surgical candidate. Intolerant to statins. Continue Repatha 140 mg every 2 weeks. #Glaucoma: Follows regularly with ophthalmology. Continue latanoprost 0.005% 1 drop in each eye nightly #Type 2 diabetes: She has been on Tresiba 36 units daily. She states her blood sugars at home on average are just above 100. Discussed transitioning to Mounjaro 2.5 weekly injections for A1c reduction and weight loss. Discussed side effects including constipation, nausea, reflux, hair thinning. Plan to review records and previously trialed medications. Will consider transition at next visit. F/u in 4 weeks. #Gout: Follows with podiatry, Dr. Chapman, recently received a cortisone injection. She reports more frequent flares and did have a fall secondary to her toe pain reported to the hospital. Patient states she does not have CKD, however, Dr. Chapman's most recent note mentions a history of CKD. Will hold off on starting allopurinol until kidney function is confirmed to determine dosing. #Hypertension: BP today 150/88, 162/94. She recently had her lisinopril decreased from 40 to 20 mg in the hospital. Unclear whether this was due to JUSTINE versus concern for worsening uric acid levels and gout. Will review notes. Continue lisinopril 20 mg at this time. Will consider increasing dose or adding additional antihypertensive at next visit in 1 month. #John's esophagus: Continue following with GI every 6 months. Total time spent today was 60 minutes of which greater than 50% was spent on coordinating and counseling All questions have been answered to patient's satisfaction. Patient verbalized understanding of diagnosis and treatments explained. Advised to call sooner prior to next visit it any questions/concerns arise. Case discussed with collaborating physician Jitendra Okeefe who reviewed the assessment and plan. Chart, medications, labs, vital signs reviewed. Dictation was accomplished with the use of [employer] voice recognition software, which is prone to medical misidentifications and grammatical errors. This are unintentional and the practitioner does try to identify and correct these, but some could still be present. Please do not hesitate to contact practitioner for clarification. 03/04/2025 Glaucoma of both eyes, unspecified glaucoma type (ICD-10 - H40.9) Patient is welcomed to the practice. They are coming from Dr. Magallanes. Last complete physical exam with labs August 2024. Medications, medical history, allergies, surgeries, hospitalizations, family history, and social history were reviewed. Problem list updated. Cardiopulmonary and abdominal exam unremarkable. Patient will follow-up in office. All patient questions answered at this time. #Health maintenance: Follows regularly with dentist and eye doctor. Declines LOADERS and further Pap smears. Up-to-date on all vaccines. She believes she is overdue with mammogram at [facility], plans to schedule. She will be due for repeat colonoscopy with endoscopy August 2025 when she discontinues Plavix. Believes she has had a bone density scan but unsure of date and results. #Paroxysmal atrial fibrillation: Rate controlled. Denies palpitations or chest pain. Continue diltiazem 180 mg daily. Continue Eliquis 5 mg daily. Follows closely with [facility] cardiology, Dr. Delarosa. Recently had cardiac stents placed and continues on Plavix for 1 year until 08/2025. 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 #Carotid artery stenosis: Follows every 6 months for repeat ultrasound with vascular surgery, most recent appointment upcoming 03/2025. She states she is not a surgical candidate. Intolerant to statins. Continue Repatha 140 mg every 2 weeks. #Glaucoma: Follows regularly with ophthalmology. Continue latanoprost 0.005% 1 drop in each eye nightly #Type 2 diabetes: She has been on Tresiba 36 units daily. She states her blood sugars at home on average are just above 100. Discussed transitioning to Mounjaro 2.5 weekly injections for A1c reduction and weight loss. Discussed side effects including constipation, nausea, reflux, hair thinning. Plan to review records and previously trialed medications. Will consider transition at next visit. F/u in 4 weeks. #Gout: Follows with podiatry, Dr. Chapman, recently received a cortisone injection. She reports more frequent flares and did have a fall secondary to her toe pain reported to the hospital. Patient states she does not have CKD, however, Dr. Chapman's most recent note mentions a history of CKD. Will hold off on starting allopurinol until kidney function is confirmed to determine dosing. #Hypertension: BP today 150/88, 162/94. She recently had her lisinopril decreased from 40 to 20 mg in the hospital. Unclear whether this was due to JUSTINE versus concern for worsening uric acid levels and gout. Will review notes. Continue lisinopril 20 mg at this time. Will consider increasing dose or adding additional antihypertensive at next visit in 1 month. #John's esophagus: Continue following with GI every 6 months. Total time spent today was 60 minutes of which greater than 50% was spent on coordinating and counseling All questions have been answered to patient's satisfaction. Patient verbalized understanding of diagnosis and treatments explained. Advised to call sooner prior to next visit it any questions/concerns arise. Case discussed with collaborating physician Jitendra Okeefe who reviewed the assessment and plan. Chart, medications, labs, vital signs reviewed. Dictation was accomplished with the use of [employer]most voice recognition software, which is prone to medical misidentifications and grammatical errors. This are unintentional and the practitioner does try to identify and correct these, but some could still be present. Please do not hesitate to contact practitioner for clarification. 04/08/2025 Encounter for examination of blood pressure without abnormal findings (ICD-10 - Z01.30) Starr is a 79-year-old female with past medical history of hyperlipidemia, paroxysmal atrial fibrillation, rate controlled, carotid artery stenosis, CKD, glaucoma, type 2 diabetes, gout, hypertension, John's esophagus, and CVA in 2021 who presents for routine follow-up. #Right thigh pain: Ongoing for 2 weeks, limiting ambulation. Patient currently ambulating with a cane due to severe pain. Denies injury or trauma. Likely due to osteoarthritis. Plan for x-ray right hip. Patient unable to tolerate NSAIDs given CKD and bleeding risk with concomitant use of Eliquis and Plavix. Plan for tramadol 25 mg nightly. Educated patient on side effects of tramadol including dizziness, drowsiness, constipation, respiratory depression, increased risk of falls, and addiction risk. Controlled substance contract signed today. Will follow-up in 1 week. #Paroxysmal atrial fibrillation: Tachycardic today to 106. Regular rhythm. Denies palpitations or chest pain. Continue diltiazem 180 mg daily. Continue Eliquis 5 mg daily. Follows closely with [facility] cardiology, Dr. Delarosa. Recently had cardiac stents placed and continues on Plavix for 1 year until 08/2025. Consider metoprolol succinate addition, encouraged patient to discuss with Dr. Delarosa. Advised patient to monitor HR at home. 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 #CKD: Follows with Dr. Najera with nephrology. Upcoming appointment 04/2025. Most recent BMP 03/05/2025 shows creatinine 0.99, BUN 17, GFR 58. This has down trended. Continue following with nephrology. Avoid nephrotoxic agents. #Carotid artery stenosis: Follows every 6 months for repeat ultrasound with vascular surgery, most recent appointment upcoming today 04/08/2025. She states she is not a surgical candidate. Intolerant to statins. Continue Repatha 140 mg every 2 weeks. #Glaucoma: Follows regularly with ophthalmology. Continue latanoprost 0.005% 1 drop in each eye nightly #Type 2 diabetes: She has been on Tresiba 36 units daily. She states her blood sugars at home on average are just above 100. Discussed transitioning to Mounjaro 2.5 weekly injections for A1c reduction and weight loss. Discussed side effects including constipation, nausea, reflux, hair thinning. Plan to review records and previously trialed medications. Will consider transition at next visit in 1 week. #Gout: Follows with podiatry, Dr. Chapman, recently received a cortisone injection. She reports more frequent flares and did have a fall secondary to her toe pain reported to the hospital. Unable to tolerate NSAIDs or colchicine due to CKD. Plan for allopurinol 100 mg daily. Monitor kidney function #Hypertension: BP more controlled today with increasing lisinopril to 40 mg daily, and addition of chlorthalidone 25 mg daily. #John's esophagus: Continue following with GI every 6 months. All questions have been answered to patient's satisfaction. Patient verbalized understanding of diagnosis and treatments explained. Advised to call sooner prior to next visit it any questions/concerns arise. Case discussed with collaborating physician Jitendra Okeefe who reviewed the assessment and plan. Chart, medications, labs, vital signs reviewed. Dictation was accomplished with the use of Foremost voice recognition software, which is prone to medical misidentifications and grammatical errors. This are unintentional and the practitioner does try to identify and correct these, but some could still be present. Please do not hesitate to contact practitioner for clarification. 04/08/2025 Hyperlipidemia, mixed (ICD-10 - E78.2) Starr is a 79-year-old female with past medical history of hyperlipidemia, paroxysmal atrial fibrillation, rate controlled, carotid artery stenosis, CKD, glaucoma, type 2 diabetes, gout, hypertension, John's esophagus, and CVA in 2021 who presents for routine follow-up. #Right thigh pain: Ongoing for 2 weeks, limiting ambulation. Patient currently ambulating with a cane due to severe pain. Denies injury or trauma. Likely due to osteoarthritis. Plan for x-ray right hip. Patient unable to tolerate NSAIDs given CKD and bleeding risk with concomitant use of Eliquis and Plavix. Plan for tramadol 25 mg nightly. Educated patient on side effects of tramadol including dizziness, drowsiness, constipation, respiratory depression, increased risk of falls, and addiction risk. Controlled substance contract signed today. Will follow-up in 1 week. #Paroxysmal atrial fibrillation: Tachycardic today to 106. Regular rhythm. Denies palpitations or chest pain. Continue diltiazem 180 mg daily. Continue Eliquis 5 mg daily. Follows closely with [facility] cardiology, Dr. Delarosa. Recently had cardiac stents placed and continues on Plavix for 1 year until 08/2025. Consider metoprolol succinate addition, encouraged patient to discuss with Dr. Delarosa. Advised patient to monitor HR at home. 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 #CKD: Follows with Dr. Najera with nephrology. Upcoming appointment 04/2025. Most recent BMP 03/05/2025 shows creatinine 0.99, BUN 17, GFR 58. This has down trended. Continue following with nephrology. Avoid nephrotoxic agents. #Carotid artery stenosis: Follows every 6 months for repeat ultrasound with vascular surgery, most recent appointment upcoming today 04/08/2025. She states she is not a surgical candidate. Intolerant to statins. Continue Repatha 140 mg every 2 weeks. #Glaucoma: Follows regularly with ophthalmology. Continue latanoprost 0.005% 1 drop in each eye nightly #Type 2 diabetes: She has been on Tresiba 36 units daily. She states her blood sugars at home on average are just above 100. Discussed transitioning to Mounjaro 2.5 weekly injections for A1c reduction and weight loss. Discussed side effects including constipation, nausea, reflux, hair thinning. Plan to review records and previously trialed medications. Will consider transition at next visit in 1 week. #Gout: Follows with podiatry, Dr. Chapman, recently received a cortisone injection. She reports more frequent flares and did have a fall secondary to her toe pain reported to the hospital. Unable to tolerate NSAIDs or colchicine due to CKD. Plan for allopurinol 100 mg daily. Monitor kidney function #Hypertension: BP more controlled today with increasing lisinopril to 40 mg daily, and addition of chlorthalidone 25 mg daily. #John's esophagus: Continue following with GI every 6 months. All questions have been answered to patient's satisfaction. Patient verbalized understanding of diagnosis and treatments explained. Advised to call sooner prior to next visit it any questions/concerns arise. Case discussed with collaborating physician Jitendra Okeefe who reviewed the assessment and plan. Chart, medications, labs, vital signs reviewed. Dictation was accomplished with the use of Foremost voice recognition software, which is prone to medical misidentifications and grammatical errors. This are unintentional and the practitioner does try to identify and correct these, but some could still be present. Please do not hesitate to contact practitioner for clarification. 04/15/2025 Encounter for examination of blood pressure without abnormal findings (ICD-10 - Z01.30) Starr is a 79-year-old female with past medical history of hyperlipidemia, paroxysmal atrial fibrillation, rate controlled, carotid artery stenosis, CKD, glaucoma, type 2 diabetes, gout, hypertension, John's esophagus, and CVA in 2021 who presents for follow up regarding right thigh pain. #Right thigh pain: X-ray without acute abnormality, showed mild arthritis. On exam, tenderness to palpation over right groin soft tissue/musculature. Pain likely secondary to muscle strain due to prior physical therapy exercises. Plan for muscle relaxer as needed at night. Educated on side effects including drowsiness, dizziness or lightheadedness, and increased risk of falls. Encouraged to continue avoiding NSAIDs. Will follow-up in 2 weeks. Consider physical therapy in the future. #UTI: Urinalysis shows positive nitrates, positive WBC esterase, positive bacteria. Patient denies dysuria but does report urinary frequency and urgency which is new. Will treat with Augmentin. #Paroxysmal atrial fibrillation: Tachycardic today to 106. Regular rhythm. Denies palpitations or chest pain. Continue diltiazem 180 mg daily. Continue Eliquis 5 mg daily. Follows closely with [facility] cardiology, Dr. Delarosa. Recently had cardiac stents placed and continues on Plavix for 1 year until 08/2025. Consider metoprolol succinate addition, encouraged patient to discuss with Dr. Delarosa. Advised patient to monitor HR at home. 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 #CKD: Follows with Dr. Najera with nephrology. Upcoming appointment 04/2025. Most recent BMP 03/05/2025 shows creatinine 0.99, BUN 17, GFR 58. This has down trended. Continue following with nephrology. Avoid nephrotoxic agents. #Carotid artery stenosis: Follows every 6 months for repeat ultrasound with vascular surgery, most recent appointment 04/08/2025. She states she is not a surgical candidate. Intolerant to statins. Continue Repatha 140 mg every 2 weeks. #Glaucoma: Follows regularly with ophthalmology. Continue latanoprost 0.005% 1 drop in each eye nightly #Type 2 diabetes: She has been on Tresiba 36 units daily. She states her blood sugars at home on average are just above 100. Discussed transitioning to Mounjaro 2.5 weekly injections for A1c reduction and weight loss. Discussed side effects including constipation, nausea, reflux, hair thinning. Plan to review records and previously trialed medications. Will consider transition at next visit in 1 week. #Gout: Follows with podiatry, Dr. Chapman, recently received a cortisone injection. She reports more frequent flares and did have a fall secondary to her toe pain reported to the hospital. Unable to tolerate NSAIDs or colchicine due to CKD. Plan for allopurinol 100 mg daily. Monitor kidney function #Hypertension: BP more controlled today with increasing lisinopril to 40 mg daily, and addition of chlorthalidone 25 mg daily. #John's esophagus: Continue following with GI every 6 months. All questions have been answered to patient's satisfaction. Patient verbalized understanding of diagnosis and treatments explained. Advised to call sooner prior to next visit it any questions/concerns arise. Case discussed with collaborating physician Jitendra Okeefe who reviewed the assessment and plan. Chart, medications, labs, vital signs reviewed. Dictation was accomplished with the use of [employer] voice recognition software, which is prone to medical misidentifications and grammatical errors. This are unintentional and the practitioner does try to identify and correct these, but some could still be present. Please do not hesitate to contact practitioner for clarification. 05/25/2025 Thyroid nodule (ICD-10 - E04.1) Starr is a 79-year-old female with past medical history of hyperlipidemia, paroxysmal atrial fibrillation, rate controlled, carotid artery stenosis, CKD, glaucoma, type 2 diabetes, gout, hypertension, John's esophagus, and CVA in 2021 who presents for follow up regarding right thigh pain, found to have large disc extrusion. Noted to be admitted to [facility] 05/11/2025 until 05/15/2025 due to concern for stroke, fevers, positive COVID infection. #COVID: Tested positive in the hospital 05/11/2025. Associated fevers, weakness, fatigue. Chest x-ray negative. Reports ongoing weakness and fatigue. Encourage patient to hydrate and to rest. #Encephalopathy: Was a stroke alert in the ED. Imaging unremarkable. Neurology believes this may be secondary to encephalopathy due to infection. Mentating well today. Will continue to monitor mental status. #Fatigue: Likely secondary to COVID infection and recent hospital admission. Will repeat CBC and CMP. May be secondary to hypoglycemia due to low readings in the hospital. Freestyle hetal given to patient today to monitor sugars. #Thyroid nodule: Incidental finding of 2.2 cm thyroid nodule noted on CTA. Thyroid panel within normal limits. Plan for thyroid ultrasound for further evaluation. 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 Urgent referral was placed to her neurosurgeon, Dr. Tucker with [facility]. She was cleared for surgery by cardiology. She was referred to pain management due to patient request for morphine however pain management deferred to PCP/neurosurgery. Surgery scheduled 07/22/2025. No bowel or bladder incontinence or saddle anesthesia. #Paroxysmal atrial fibrillation: Regular rhythm. Denies palpitations or chest pain. Continue diltiazem 180 mg daily. Continue Eliquis 5 mg daily. Follows closely with [facility] cardiology, Dr. Delarosa. Recently had cardiac stents placed and continues on Plavix for 1 year until 08/2025. Consider metoprolol succinate addition, encouraged patient to discuss with Dr. Delarosa next week. Advised patient to monitor HR at home. 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 #CKD: Follows with Dr. Najera with nephrology. Most recent appointment 04/2025. Most recent BMP 03/05/2025 shows creatinine 0.99, BUN 17, GFR 58. This has down trended. Continue following with nephrology. Avoid nephrotoxic agents. #Carotid artery stenosis: Follows every 6 months for repeat ultrasound with vascular surgery, most recent appointment 04/08/2025. She states she is not a surgical candidate. Intolerant to statins. Continue Repatha 140 mg every 2 weeks. #Glaucoma: Follows regularly with ophthalmology. Continue latanoprost 0.005% 1 drop in each eye nightly #Type 2 diabetes: She has been on Tresiba 36 units daily. She states her blood sugars at home on average are just above 100. A1c is 5.4. Will consider cutting down insulin, will address at future appt when thigh pain is more controlled. #Gout: Follows with podiatry, Dr. Chapman, recently received a cortisone injection. She reports more frequent flares and did have a fall secondary to her toe pain reported to the hospital. Unable to tolerate NSAIDs or colchicine due to CKD. Continue allopurinol 100 mg daily. Monitor kidney function #Hypertension: Continue lisinopril 40 mg daily. Chlorthalidone was discontinued due to risk of gout and she was started on furosemide 20 mg every other day. Will consider increasing furosemide to daily. Will evaluate BMP at next visit to ensure electrolytes are within normal limits. Patient encouraged to continue taking BP at home, on average have been 130/70 #John's esophagus: Continue following with GI every 6 months. All questions have been answered to patient's satisfaction. Patient verbalized understanding of diagnosis and treatments explained. Advised to call sooner prior to next visit it any questions/concerns arise. Case discussed with collaborating physician Jitendra Okeefe who reviewed the assessment and plan. Chart, medications, labs, vital signs reviewed. Dictation was accomplished with the use of [employer] voice recognition software, which is prone to medical misidentifications and grammatical errors. This are unintentional and the practitioner does try to identify and correct these, but some could still be present. Please do not hesitate to contact practitioner for clarification. 06/08/2025 Benign paroxysmal positional vertigo, bilateral (ICD-10 - H81.13) Starr is a 79-year-old female with past medical history of hyperlipidemia, paroxysmal atrial fibrillation, rate controlled, carotid artery stenosis, CKD, glaucoma, type 2 diabetes, gout, hypertension, John's esophagus, and CVA in 2021 who presents for follow up regarding significant fatigue likely due to COVID infection, may also be due to hypoglycemia due to Freestyle Hetal readings dropping to 50s overnight. She also reports dizziness/dysequilib rium and ear fullness. #Fatigue: Likely secondary to COVID infection 05/11/25 and recent hospital admission from 05/11/25 to 05/15/25. Improving. Will monitor. #Type 2 diabetes with hypoglycemia: She has been on Tresiba 36 units daily. She states her blood sugars at home have been dropping to 50s overnight and average reading is 108. A1c is 5.4. Encouraged patient to decrease insulin to Tresiba 24 units daily. Continue freestyle hetal. Patient and very involved with sugar readings and adjusting diet/supplementing sugar as needed. Will f/u in 1-2 weeks for evaluation of sugars, sooner as needed. #Thyroid nodule: Incidental finding of 2.2 cm thyroid nodule noted on CTA. Thyroid panel within normal limitos. Thyroid ultrasound performed 06/07/2025 shows a circumscribed solid, isoechoic nodule in the interpolar area, 2.4 x 2.1 x 2.1 cm, TI-RADS 3. FNA was performed in 2019, during this time size was 2.0 x 1.7 x 2.5 cm. We do not have these records or results of biopsy. Encouraged patient to follow up with endocrinology for recommendations, referral placed today. #Disequilibrium: She reports dizziness with associated bilateral ear pressure. She states symptoms are worse with movement of her head. Likely BPPV. On exam, there is bilateral cerumen in ear canals. Plan for Debrox drops and ear lavage next week. Plan for meclizine as needed. Plan for vestibular therapy. 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 Urgent referral was placed to her neurosurgeon, Dr. Tucker with [facility]. She was cleared for surgery by cardiology. She was referred to pain management due to patient request for morphine however pain management deferred to PCP/neurosurgery. Surgery scheduled 07/22/2025. No bowel or bladder incontinence or saddle anesthesia. #Paroxysmal atrial fibrillation: Regular rhythm. Denies palpitations or chest pain. Continue diltiazem 180 mg daily. She recently was started on carvedilol 3.125 mg BID by cardiology. She has not started the medication yet but plans to today. Continue Eliquis 5 mg daily. Follows closely with [facility] cardiology, Dr. Delarosa. Recently had cardiac stents placed and continues on Plavix for 1 year until 08/2025. 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 #CKD: Follows with Dr. Najera with nephrology. Most recent appointment 04/2025. Most recent BMP 03/05/2025 shows creatinine 0.99, BUN 17, GFR 58. This has down trended. Continue following with nephrology. Avoid nephrotoxic agents. #Carotid artery stenosis: Follows every 6 months for repeat ultrasound with vascular surgery, most recent appointment 04/08/2025. She states she is not a surgical candidate. Intolerant to statins. Continue Repatha 140 mg every 2 weeks. #Glaucoma: Follows regularly with ophthalmology. Continue latanoprost 0.005% 1 drop in each eye nightly #Gout: Follows with podiatry, Dr. Chapman, recently received a cortisone injection. She reports more frequent flares and did have a fall secondary to her toe pain reported to the hospital. Unable to tolerate NSAIDs or colchicine due to CKD. Continue allopurinol 100 mg daily. Monitor kidney function #Hypertension: Continue lisinopril 40 mg daily. Chlorthalidone was discontinued due to risk of gout and she was started on furosemide 20 mg every other day. Will evaluate BMP at next visit to ensure electrolytes are within normal limits. Patient encouraged to continue taking BP at home, on average have been 130/70 #John's esophagus: Continue following with GI every 6 months. All questions have been answered to patient's satisfaction. Patient verbalized understanding of diagnosis and treatments explained. Advised to call sooner prior to next visit it any questions/concerns arise. Case discussed with collaborating physician Jitendra Okeefe who reviewed the assessment and plan. Chart, medications, labs, vital signs reviewed. Dictation was accomplished with the use of [employer] voice recognition software, which is prone to medical misidentifications and grammatical errors. This are unintentional and the practitioner does try to identify and correct these, but some could still be present. Please do not hesitate to contact practitioner for clarification. 06/08/2025 Bilateral impacted cerumen (ICD-10 - H61.23) Starr is a 79-year-old female with past medical history of hyperlipidemia, paroxysmal atrial fibrillation, rate controlled, carotid artery stenosis, CKD, glaucoma, type 2 diabetes, gout, hypertension, John's esophagus, and CVA in 2021 who presents for follow up regarding significant fatigue likely due to COVID infection, may also be due to hypoglycemia due to Freestyle Hetal readings dropping to 50s overnight. She also reports dizziness/dysequilib rium and ear fullness. #Fatigue: Likely secondary to COVID infection 05/11/25 and recent hospital admission from 05/11/25 to 05/15/25. Improving. Will monitor. #Type 2 diabetes with hypoglycemia: She has been on Tresiba 36 units daily. She states her blood sugars at home have been dropping to 50s overnight and average reading is 108. A1c is 5.4. Encouraged patient to decrease insulin to Tresiba 24 units daily. Continue freestyle hetal. Patient and very involved with sugar readings and adjusting diet/supplementing sugar as needed. Will f/u in 1-2 weeks for evaluation of sugars, sooner as needed. #Thyroid nodule: Incidental finding of 2.2 cm thyroid nodule noted on CTA. Thyroid panel within normal limitos. Thyroid ultrasound performed 06/07/2025 shows a circumscribed solid, isoechoic nodule in the interpolar area, 2.4 x 2.1 x 2.1 cm, TI-RADS 3. FNA was performed in 2019, during this time size was 2.0 x 1.7 x 2.5 cm. We do not have these records or results of biopsy. Encouraged patient to follow up with endocrinology for recommendations, referral placed today. #Disequilibrium: She reports dizziness with associated bilateral ear pressure. She states symptoms are worse with movement of her head. Likely BPPV. On exam, there is bilateral cerumen in ear canals. Plan for Debrox drops and ear lavage next week. Plan for meclizine as needed. Plan for vestibular therapy. 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 Urgent referral was placed to her neurosurgeon, Dr. Tucker with [facility]. She was cleared for surgery by cardiology. She was referred to pain management due to patient request for morphine however pain management deferred to PCP/neurosurgery. Surgery scheduled 07/22/2025. No bowel or bladder incontinence or saddle anesthesia. #Paroxysmal atrial fibrillation: Regular rhythm. Denies palpitations or chest pain. Continue diltiazem 180 mg daily. She recently was started on carvedilol 3.125 mg BID by cardiology. She has not started the medication yet but plans to today. Continue Eliquis 5 mg daily. Follows closely with [facility] cardiology, Dr. Delarosa. Recently had cardiac stents placed and continues on Plavix for 1 year until 08/2025. 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 #CKD: Follows with Dr. Najera with nephrology. Most recent appointment 04/2025. Most recent BMP 03/05/2025 shows creatinine 0.99, BUN 17, GFR 58. This has down trended. Continue following with nephrology. Avoid nephrotoxic agents. #Carotid artery stenosis: Follows every 6 months for repeat ultrasound with vascular surgery, most recent appointment 04/08/2025. She states she is not a surgical candidate. Intolerant to statins. Continue Repatha 140 mg every 2 weeks. #Glaucoma: Follows regularly with ophthalmology. Continue latanoprost 0.005% 1 drop in each eye nightly #Gout: Follows with podiatry, Dr. Chapman, recently received a cortisone injection. She reports more frequent flares and did have a fall secondary to her toe pain reported to the hospital. Unable to tolerate NSAIDs or colchicine due to CKD. Continue allopurinol 100 mg daily. Monitor kidney function #Hypertension: Continue lisinopril 40 mg daily. Chlorthalidone was discontinued due to risk of gout and she was started on furosemide 20 mg every other day. Will evaluate BMP at next visit to ensure electrolytes are within normal limits. Patient encouraged to continue taking BP at home, on average have been 130/70 #John's esophagus: Continue following with GI every 6 months. All questions have been answered to patient's satisfaction. Patient verbalized understanding of diagnosis and treatments explained. Advised to call sooner prior to next visit it any questions/concerns arise. Case discussed with collaborating physician Jitendra Okeefe who reviewed the assessment and plan. Chart, medications, labs, vital signs reviewed. Dictation was accomplished with the use of Foremost voice recognition software, which is prone to medical misidentifications and grammatical errors. This are unintentional and the practitioner does try to identify and correct these, but some could still be present. Please do not hesitate to contact practitioner for clarification. 05/25/2025 Postviral fatigue syndrome (ICD-10 - G93.31) Starr is a 79-year-old female with past medical history of hyperlipidemia, paroxysmal atrial fibrillation, rate controlled, carotid artery stenosis, CKD, glaucoma, type 2 diabetes, gout, hypertension, John's esophagus, and CVA in 2021 who presents for follow up regarding right thigh pain, found to have large disc extrusion. Noted to be admitted to [facility] 05/11/2025 until 05/15/2025 due to concern for stroke, fevers, positive COVID infection. #COVID: Tested positive in the hospital 05/11/2025. Associated fevers, weakness, fatigue. Chest x-ray negative. Reports ongoing weakness and fatigue. Encourage patient to hydrate and to rest. #Encephalopathy: Was a stroke alert in the ED. Imaging unremarkable. Neurology believes this may be secondary to encephalopathy due to infection. Mentating well today. Will continue to monitor mental status. #Fatigue: Likely secondary to COVID infection and recent hospital admission. Will repeat CBC and CMP. May be secondary to hypoglycemia due to low readings in the hospital. Freestyle hetal given to patient today to monitor sugars. #Thyroid nodule: Incidental finding of 2.2 cm thyroid nodule noted on CTA. Thyroid panel within normal limits. Plan for thyroid ultrasound for further evaluation. 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 Urgent referral was placed to her neurosurgeon, Dr. Tucker with [facility]. She was cleared for surgery by cardiology. She was referred to pain management due to patient request for morphine however pain management deferred to PCP/neurosurgery. Surgery scheduled 07/22/2025. No bowel or bladder incontinence or saddle anesthesia. #Paroxysmal atrial fibrillation: Regular rhythm. Denies palpitations or chest pain. Continue diltiazem 180 mg daily. Continue Eliquis 5 mg daily. Follows closely with [facility] cardiology, Dr. Delarosa. Recently had cardiac stents placed and continues on Plavix for 1 year until 08/2025. Consider metoprolol succinate addition, encouraged patient to discuss with Dr. Delarosa next week. Advised patient to monitor HR at home. 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 #CKD: Follows with Dr. Najera with nephrology. Most recent appointment 04/2025. Most recent BMP 03/05/2025 shows creatinine 0.99, BUN 17, GFR 58. This has down trended. Continue following with nephrology. Avoid nephrotoxic agents. #Carotid artery stenosis: Follows every 6 months for repeat ultrasound with vascular surgery, most recent appointment 04/08/2025. She states she is not a surgical candidate. Intolerant to statins. Continue Repatha 140 mg every 2 weeks. #Glaucoma: Follows regularly with ophthalmology. Continue latanoprost 0.005% 1 drop in each eye nightly #Type 2 diabetes: She has been on Tresiba 36 units daily. She states her blood sugars at home on average are just above 100. A1c is 5.4. Will consider cutting down insulin, will address at future appt when thigh pain is more controlled. #Gout: Follows with podiatry, Dr. Chapman, recently received a cortisone injection. She reports more frequent flares and did have a fall secondary to her toe pain reported to the hospital. Unable to tolerate NSAIDs or colchicine due to CKD. Continue allopurinol 100 mg daily. Monitor kidney function #Hypertension: Continue lisinopril 40 mg daily. Chlorthalidone was discontinued due to risk of gout and she was started on furosemide 20 mg every other day. Will consider increasing furosemide to daily. Will evaluate BMP at next visit to ensure electrolytes are within normal limits. Patient encouraged to continue taking BP at home, on average have been 130/70 #John's esophagus: Continue following with GI every 6 months. All questions have been answered to patient's satisfaction. Patient verbalized understanding of diagnosis and treatments explained. Advised to call sooner prior to next visit it any questions/concerns arise. Case discussed with collaborating physician Jitendra Okeefe who reviewed the assessment and plan. Chart, medications, labs, vital signs reviewed. Dictation was accomplished with the use of Foremost voice recognition software, which is prone to medical misidentifications and grammatical errors. This are unintentional and the practitioner does try to identify and correct these, but some could still be present. Please do not hesitate to contact practitioner for clarification. 06/08/2025 Hypoglycemia (ICD-10 - E16.2) Starr is a 79-year-old female with past medical history of hyperlipidemia, paroxysmal atrial fibrillation, rate controlled, carotid artery stenosis, CKD, glaucoma, type 2 diabetes, gout, hypertension, John's esophagus, and CVA in 2021 who presents for follow up regarding significant fatigue likely due to COVID infection, may also be due to hypoglycemia due to Freestyle Hetal readings dropping to 50s overnight. She also reports dizziness/dysequilib rium and ear fullness. #Fatigue: Likely secondary to COVID infection 05/11/25 and recent hospital admission from 05/11/25 to 05/15/25. Improving. Will monitor. #Type 2 diabetes with hypoglycemia: She has been on Tresiba 36 units daily. She states her blood sugars at home have been dropping to 50s overnight and average reading is 108. A1c is 5.4. Encouraged patient to decrease insulin to Tresiba 24 units daily. Continue freestyle hetal. Patient and very involved with sugar readings and adjusting diet/supplementing sugar as needed. Will f/u in 1-2 weeks for evaluation of sugars, sooner as needed. #Thyroid nodule: Incidental finding of 2.2 cm thyroid nodule noted on CTA. Thyroid panel within normal limitos. Thyroid ultrasound performed 06/07/2025 shows a circumscribed solid, isoechoic nodule in the interpolar area, 2.4 x 2.1 x 2.1 cm, TI-RADS 3. FNA was performed in 2019, during this time size was 2.0 x 1.7 x 2.5 cm. We do not have these records or results of biopsy. Encouraged patient to follow up with endocrinology for recommendations, referral placed today. #Disequilibrium: She reports dizziness with associated bilateral ear pressure. She states symptoms are worse with movement of her head. Likely BPPV. On exam, there is bilateral cerumen in ear canals. Plan for Debrox drops and ear lavage next week. Plan for meclizine as needed. Plan for vestibular therapy. 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 Urgent referral was placed to her neurosurgeon, Dr. Tucker with [facility]. She was cleared for surgery by cardiology. She was referred to pain management due to patient request for morphine however pain management deferred to PCP/neurosurgery. Surgery scheduled 07/22/2025. No bowel or bladder incontinence or saddle anesthesia. #Paroxysmal atrial fibrillation: Regular rhythm. Denies palpitations or chest pain. Continue diltiazem 180 mg daily. She recently was started on carvedilol 3.125 mg BID by cardiology. She has not started the medication yet but plans to today. Continue Eliquis 5 mg daily. Follows closely with [facility] cardiology, Dr. Delarosa. Recently had cardiac stents placed and continues on Plavix for 1 year until 08/2025. 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 #CKD: Follows with Dr. Najera with nephrology. Most recent appointment 04/2025. Most recent BMP 03/05/2025 shows creatinine 0.99, BUN 17, GFR 58. This has down trended. Continue following with nephrology. Avoid nephrotoxic agents. #Carotid artery stenosis: Follows every 6 months for repeat ultrasound with vascular surgery, most recent appointment 04/08/2025. She states she is not a surgical candidate. Intolerant to statins. Continue Repatha 140 mg every 2 weeks. #Glaucoma: Follows regularly with ophthalmology. Continue latanoprost 0.005% 1 drop in each eye nightly #Gout: Follows with podiatry, Dr. Chapman, recently received a cortisone injection. She reports more frequent flares and did have a fall secondary to her toe pain reported to the hospital. Unable to tolerate NSAIDs or colchicine due to CKD. Continue allopurinol 100 mg daily. Monitor kidney function #Hypertension: Continue lisinopril 40 mg daily. Chlorthalidone was discontinued due to risk of gout and she was started on furosemide 20 mg every other day. Will evaluate BMP at next visit to ensure electrolytes are within normal limits. Patient encouraged to continue taking BP at home, on average have been 130/70 #John's esophagus: Continue following with GI every 6 months. All questions have been answered to patient's satisfaction. Patient verbalized understanding of diagnosis and treatments explained. Advised to call sooner prior to next visit it any questions/concerns arise. Case discussed with collaborating physician Jitendra Okeefe who reviewed the assessment and plan. Chart, medications, labs, vital signs reviewed. Dictation was accomplished with the use of Foremost voice recognition software, which is prone to medical misidentifications and grammatical errors. This are unintentional and the practitioner does try to identify and correct these, but some could still be present. Please do not hesitate to contact practitioner for clarification. 05/25/2025 Encounter for examination of blood pressure without abnormal findings (ICD-10 - Z01.30) Starr is a 79-year-old female with past medical history of hyperlipidemia, paroxysmal atrial fibrillation, rate controlled, carotid artery stenosis, CKD, glaucoma, type 2 diabetes, gout, hypertension, John's esophagus, and CVA in 2021 who presents for follow up regarding right thigh pain, found to have large disc extrusion. Noted to be admitted to [facility] 05/11/2025 until 05/15/2025 due to concern for stroke, fevers, positive COVID infection. #COVID: Tested positive in the hospital 05/11/2025. Associated fevers, weakness, fatigue. Chest x-ray negative. Reports ongoing weakness and fatigue. Encourage patient to hydrate and to rest. #Encephalopathy: Was a stroke alert in the ED. Imaging unremarkable. Neurology believes this may be secondary to encephalopathy due to infection. Mentating well today. Will continue to monitor mental status. #Fatigue: Likely secondary to COVID infection and recent hospital admission. Will repeat CBC and CMP. May be secondary to hypoglycemia due to low readings in the hospital. Freestyle hetal given to patient today to monitor sugars. #Thyroid nodule: Incidental finding of 2.2 cm thyroid nodule noted on CTA. Thyroid panel within normal limits. Plan for thyroid ultrasound for further evaluation. 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 Urgent referral was placed to her neurosurgeon, Dr. Tucker with [facility]. She was cleared for surgery by cardiology. She was referred to pain management due to patient request for morphine however pain management deferred to PCP/neurosurgery. Surgery scheduled 07/22/2025. No bowel or bladder incontinence or saddle anesthesia. #Paroxysmal atrial fibrillation: Regular rhythm. Denies palpitations or chest pain. Continue diltiazem 180 mg daily. Continue Eliquis 5 mg daily. Follows closely with [facility] cardiology, Dr. Delarosa. Recently had cardiac stents placed and continues on Plavix for 1 year until 08/2025. Consider metoprolol succinate addition, encouraged patient to discuss with Dr. Delarosa next week. Advised patient to monitor HR at home. 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 #CKD: Follows with Dr. Najera with nephrology. Most recent appointment 04/2025. Most recent BMP 03/05/2025 shows creatinine 0.99, BUN 17, GFR 58. This has down trended. Continue following with nephrology. Avoid nephrotoxic agents. #Carotid artery stenosis: Follows every 6 months for repeat ultrasound with vascular surgery, most recent appointment 04/08/2025. She states she is not a surgical candidate. Intolerant to statins. Continue Repatha 140 mg every 2 weeks. #Glaucoma: Follows regularly with ophthalmology. Continue latanoprost 0.005% 1 drop in each eye nightly #Type 2 diabetes: She has been on Tresiba 36 units daily. She states her blood sugars at home on average are just above 100. A1c is 5.4. Will consider cutting down insulin, will address at future appt when thigh pain is more controlled. #Gout: Follows with podiatry, Dr. Chapman, recently received a cortisone injection. She reports more frequent flares and did have a fall secondary to her toe pain reported to the hospital. Unable to tolerate NSAIDs or colchicine due to CKD. Continue allopurinol 100 mg daily. Monitor kidney function #Hypertension: Continue lisinopril 40 mg daily. Chlorthalidone was discontinued due to risk of gout and she was started on furosemide 20 mg every other day. Will consider increasing furosemide to daily. Will evaluate BMP at next visit to ensure electrolytes are within normal limits. Patient encouraged to continue taking BP at home, on average have been 130/70 #John's esophagus: Continue following with GI every 6 months. All questions have been answered to patient's satisfaction. Patient verbalized understanding of diagnosis and treatments explained. Advised to call sooner prior to next visit it any questions/concerns arise. Case discussed with collaborating physician Jitendra Okeefe who reviewed the assessment and plan. Chart, medications, labs, vital signs reviewed. Dictation was accomplished with the use of Foremost voice recognition software, which is prone to medical misidentifications and grammatical errors. This are unintentional and the practitioner does try to identify and correct these, but some could still be present. Please do not hesitate to contact practitioner for clarification. 06/08/2025 Encounter for examination of blood pressure without abnormal findings (ICD-10 - Z01.30) Starr is a 79-year-old female with past medical history of hyperlipidemia, paroxysmal atrial fibrillation, rate controlled, carotid artery stenosis, CKD, glaucoma, type 2 diabetes, gout, hypertension, John's esophagus, and CVA in 2021 who presents for follow up regarding significant fatigue likely due to COVID infection, may also be due to hypoglycemia due to Freestyle Hetal readings dropping to 50s overnight. She also reports dizziness/dysequilib rium and ear fullness. #Fatigue: Likely secondary to COVID infection 05/11/25 and recent hospital admission from 05/11/25 to 05/15/25. Improving. Will monitor. #Type 2 diabetes with hypoglycemia: She has been on Tresiba 36 units daily. She states her blood sugars at home have been dropping to 50s overnight and average reading is 108. A1c is 5.4. Encouraged patient to decrease insulin to Tresiba 24 units daily. Continue freestyle hetal. Patient and very involved with sugar readings and adjusting diet/supplementing sugar as needed. Will f/u in 1-2 weeks for evaluation of sugars, sooner as needed. #Thyroid nodule: Incidental finding of 2.2 cm thyroid nodule noted on CTA. Thyroid panel within normal limitos. Thyroid ultrasound performed 06/07/2025 shows a circumscribed solid, isoechoic nodule in the interpolar area, 2.4 x 2.1 x 2.1 cm, TI-RADS 3. FNA was performed in 2019, during this time size was 2.0 x 1.7 x 2.5 cm. We do not have these records or results of biopsy. Encouraged patient to follow up with endocrinology for recommendations, referral placed today. #Disequilibrium: She reports dizziness with associated bilateral ear pressure. She states symptoms are worse with movement of her head. Likely BPPV. On exam, there is bilateral cerumen in ear canals. Plan for Debrox drops and ear lavage next week. Plan for meclizine as needed. Plan for vestibular therapy. 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 Urgent referral was placed to her neurosurgeon, Dr. Tucker with [facility]. She was cleared for surgery by cardiology. She was referred to pain management due to patient request for morphine however pain management deferred to PCP/neurosurgery. Surgery scheduled 07/22/2025. No bowel or bladder incontinence or saddle anesthesia. #Paroxysmal atrial fibrillation: Regular rhythm. Denies palpitations or chest pain. Continue diltiazem 180 mg daily. She recently was started on carvedilol 3.125 mg BID by cardiology. She has not started the medication yet but plans to today. Continue Eliquis 5 mg daily. [facility], Dr. Delarosa. Recently had cardiac stents placed and continues on Plavix for 1 year until 08/2025. 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 #CKD: Follows with Dr. Najera with nephrology. Most recent appointment 04/2025. Most recent BMP 03/05/2025 shows creatinine 0.99, BUN 17, GFR 58. This has down trended. Continue following with nephrology. Avoid nephrotoxic agents. #Carotid artery stenosis: Follows every 6 months for repeat ultrasound with vascular surgery, most recent appointment 04/08/2025. She states she is not a surgical candidate. Intolerant to statins. Continue Repatha 140 mg every 2 weeks. #Glaucoma: Follows regularly with ophthalmology. Continue latanoprost 0.005% 1 drop in each eye nightly #Gout: Follows with podiatry, Dr. Chapman, recently received a cortisone injection. She reports more frequent flares and did have a fall secondary to her toe pain reported to the hospital. Unable to tolerate NSAIDs or colchicine due to CKD. Continue allopurinol 100 mg daily. Monitor kidney function #Hypertension: Continue lisinopril 40 mg daily. Chlorthalidone was discontinued due to risk of gout and she was started on furosemide 20 mg every other day. Will evaluate BMP at next visit to ensure electrolytes are within normal limits. Patient encouraged to continue taking BP at home, on average have been 130/70 #John's esophagus: Continue following with GI every 6 months. All questions have been answered to patient's satisfaction. Patient verbalized understanding of diagnosis and treatments explained. Advised to call sooner prior to next visit it any questions/concerns arise. Case discussed with collaborating physician Jitendra Okeefe who reviewed the assessment and plan. Chart, medications, labs, vital signs reviewed. Dictation was accomplished with the use of Foremost voice recognition software, which is prone to medical misidentifications and grammatical errors. This are unintentional and the practitioner does try to identify and correct these, but some could still be present. Please do not hesitate to contact practitioner for clarification. Plan Of Treatment Pending Test Test Name Order Date X ray : Hip, right 04/08/2025 Microalb/Creat Ratio, Randm Ur MRI : Lumbar without contrast 04/28/2025 Ultrasound : Thyroid Sonography B-Scan 1 LIPID PANEL 03/04/2025 TSH WITH REFLEX TO FT4 03/04/2025 VITAMIN B12 05/25/2025 VITAMIN B12 04/08/2025 LIPID PANEL, STANDARD 04/08/2025 COMPREHENSIVE METABOLIC PANEL 04/08/2025 COMPREHENSIVE METABOLIC PANEL 05/25/2025 COMPREHENSIVE METABOLIC PANEL 03/04/2025 CBC (H/H, RBC, INDICES, WBC, PLT) 2024 CBC (INCLUDES DIFF/PLT) 05/25/2025 URINALYSIS, COMPLETE 04/08/2025 URINALYSIS, COMPLETE 03/04/2025 HEMOGLOBIN A1c 04/08/2025 HEMOGLOBIN A1c 03/04/2025 VITAMIN B12 03/04/2025 T4, FREE 04/08/2025 TSH 04/08/2025 T3, FREE 04/08/2025 VITAMIN D,25-OH,TOTAL,IA 04/08/2025 VITAMIN D,25-OH,TOTAL,IA 03/04/2025 PPC Ear Lavage 06/14/2025 Next Appt Details Provider Name:Katie Letty dumont, 06/22/2025 11:00:00 AM, [address] [facility], [facility] [address], [place], [address], Insurance Providers Payer Name Payer Address Payer Phone Subscriber Number Group Number Insured Name Patient Relationship to Insured Coverage Start Date Coverage End Date Medicare Part B J14 [address] [place] [address] [id number] [place], [place] Self - patient is the insured 1 [facility] [address] [place] [address] [id number] [place], [place] Self - patient is the insured 1 Medical (General) History Medical History History ICD Code Hypertension, essential I10 Hyperlipidemia, mixed E78.2 Type 2 diabetes mellitus treated without insulin E11.9 glaucoma Paroxysmal atrial fibrillation I48.0 embolic stroke 09/2021 and 02/2022 carotid artery stenosis (right) CKD stage 3a, GFR 45-59 ml/min N18.31 Surgical History Surgery Date(Month/Year) bilateral shoulder replacement bilateral knee replacement 2017 cardiac stents 08/2024 Hospitalization History Reason Date(Month/Year) embolic stroke 2021 fall, JUSTINE 01/2025
--- OUTSIDE RECORDS SUMMARY | 2025-06-15 14:24 | XMS_ITS | Patient Health Record ---
Author Organization [facility] Address [address] [facility] [address] [place] [address] Care Team Providers Care Acetaldehyde Converter Operator Name Role Phone Whitney Okeefe Primary Care Provider UnavailGIO Wall Unavailable [phone] Allergies Allergen (clinical drug ingredient) Drug/Non Drug Allergy documented on EMR Reaction Allergy Type Onset Date Status Glucophage Unknown Drug Allergy Active simvastatin Zocor Unknown Drug Allergy Activ e Reason For Referral No Information Medications Medication SIG (Take, Route, Frequency, Duration) Notes Start Date End Date Status Gabapentin 300 MG 1 capsule Orally Onc e a day Active Acetaminophen 500 MG 1 tablet as needed Orally every 4 hrs Active Tresiba 100 UNIT/ML as directed Subcutaneous 34units Active Famotidine 20 MG 1 tablet at bedtime as needed Orally Once a day Active Eliquis 5 MG 1 tablet Orally Twic e a day Active Alirocumab 75 MG/ML as directed Subcutaneous every 14 days Active Mirtazapine 45 MG 1 tablet at bedtime Orally Once a day Active Lisinopril 5 MG 1 tablet Orally Once a day Active predniSONE 10 MG four tablets day 1, 2, 3 three tablets day 4,5,6 two tablets day 7,8,9 one tablet day 10,11,12 Orally Once a day; Duration: 12 days 12/21/2024 Active Latanoprost 0.005 % 1 drop into affected eye in the evening Ophthalmic Once a day Active Clopidogrel Bisulfate 75 MG 1 tablet Orally Once a day Active Fluticasone Propionate 50 MCG/ACT 1 spray in each nostril Nasally Once a day Active dilTIAZem HCl ER Coated Beads 180 MG 1 capsule Orally Once a day Active Problems Problem Type SNOMED Code ICD Code Onset Dates Problem Status W/U Status Risk Notes Problem Peripheral vascular disease (541517227) PAD (peripheral artery disease) (I73.9) Active confirmed Problem Localized, primary osteoarthritis of the ankle and/or foot (026380034) 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) Active confirmed Problem 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 Problem Acute drug-induc ed gout of right foot (M10.271) Active confirmed Problem Microcytic anemia (541746015) Microcytic anemia (D50.9) Active confirmed Problem Joint pain (96279244) Diffuse arthralgia (M25.50) Active confirmed Problem Hypercalcemia (64508299) Serum calcium elevated (E83.52) Active confirmed Vital Signs Height 5ft 5in in 03/18/2025 Weight 201.8 lbs 02/23/2025 BMI 33.58 kg/m2 02/23/2025 Procedures Procedure Date Ordered Date Performed Result Body Sit e DRAIN/INJECT, SMALL JOINT/BURSA 02/23/2025 N/A Encounters Encounter Location Date Provider Diagnosis [facility] [address] [address] 02/23/2025 GIO ADHIKARI 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 ; Inflammation of metatarsophalangeal joint M19.079 ; Pain in joint, foot, left M25.572 and PAD (peripheral artery disease) I73.9 [facility] [address] [address] 03/18/2025 GIO ADHIKARI 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 Braxton was examined and evaluated. Past medical history reviewed. I also reviewed her recent records from her hospitalization at [facility] where she was found to have a uric acid of 9.2 and JUSTINE on top of CKD. Three weightbearing radiographs of the left foot were taken today. She has edematous soft tissue changes around the dorsomedial aspect of the 1st MTPJ with kenia sign to the medial metatarsal head. 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 She is not on any mcfp uric acid controlling medications. I discussed with her and her that this is something she needs to discuss with her new PCP or her sleeve separator so that she does not continue to develop tophi. I discussed that I can treat her inflammation caused by the tophi. Unfortantely she is not a candidate for NSAIDs or colchicine due to her anticoagulation and her CKD. I advised that the only option is oral or injectable steroids. She understood and wished to try the intra articular injection. This was given into the left 1st MTPJ today. She tolerated this well. She may need to have this joint drained or aspirated in the future if the pain continues. We discussed her increase risk of healing complications due to her lower extremity PAD. She and her expressed understanding. I will see her back in 3 weeks to re-evaluate the joint. I encouraged her to call if she has any additional questions or concerns. 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 Braxton was examined and evaluated. She was given an intra articular steroid injection into the left 1st MTPJ for tophaceous gout at her last visit. She has had improvements in pain and swelling. She has seen the new PCP and new lab work as been ordered. She has follow up next month. Her last Uric acid was 9.2. She is not on any mcfp uric acid controlling medications. I discussed with her and her that this is something she needs to discuss with her new PCP or her sleeve separator so that she does not continue to develop tophi. Unfortantely she is not a candidate for NSAIDs or colchicine due to her anticoagulation and her CKD. Her inflammation has improved since the injection. I do not think any further procedure is necessary to drain tophi. At this point she needs to continue follow up with the new PCP and have further work up for the hyperuricemia. She can follow back with me as needed. 02/23/2025 Pain in joint, foot, left (ICD-10 - M25.572) 02/23/2025 PAD (peripheral edgar ry disease) (ICD-10 - I73.9) Plan Of Treatment Pending Test Test Name Order Date GERHARD 01/01/2024 Ultrasound : Artery Doppler Low Ext Bila t 01/01/2024 X ray : Foot, left 3v 02/23/2025 X ray : Foot, left 3v 01/01/2024 X ray : Foot, left 3v 04/20/2021 X ray : Foot, right 3v 10/16/2021 DRAIN/INJECT, SMALL JOINT/BURSA 02/24/20 25 DRAIN/INJECT, SMALL JOINT/BURSA 04/20/20 21 Insurance Providers Payer Name Payer Address Payer Phone Subscriber Number Group Number Insured Name Patient Relationship to Insured Coverage Start Date Coverage End Date [employer] of [place] [address] [place] [id number] [place], [place] Self - patient is the insured [employer] [facility] [address] [place] [address] [id number] [place], [place] Self - patient is the insured Medications Administered Medication Instructions Date of Administration Dosage Notes Dexamethasone 04/20/2021 2 mg dexAMETHasone Sod Phosphate PF 02/23/2025 2 mg Kenalog 04/20/2021 20 mg Kenalog 02/23/2025 5 mg Medical (General) History Medical History History ICD Code IDDM Hypertension Hyperlipidemia GERD Restless leg syndrome Osteoarthritis of multiple joints COVID vaccinated X 2 (Pfizer) Lumbar spine pain with sciatica left yina e dactylitis Gout Chronic kidney disease Atherosclerosis and coronary artery dise ase Peripheral vascular disease lower extrem ities Surgical History Surgery Date(Month/Year) Lumbar spine surgery x3 Right and left Total knee arthroplasties Right and left total shoulder replacemen ts 4th lumbar spine surgery 09/2022 Cardiac stents 08/2024 Hospitalization History Reason Date(Month/Year) 3 days at [facility] for dehyd ration, JUSTINE, and gout of left foot. Uric acid 9.2 02/08/25 back surgery 09/2022 stoke: [facility] 09/2021
--- OUTSIDE RECORDS SUMMARY | 2025-06-15 14:24 | XMS_ITS | Clinical Summary ---
Author Organization [facility] Address [address] [place] [address] Care Team Providers Care Rooming House Inspector Name Role Phone Cm Magallanes MD Primary Care Provider [phone] Allergies No known active allergies Medications aspirin [...] es 65 and older) 2011 RSV Vaccine 50 years and old er and Patients (1 - 1-dose 75+ series) 2021 Influenza Vaccine 03/19/2025 04/19/2013 COVID-19 Vaccine (2023-2 5 season) 2025 Hepatitis B Vaccines Aged Out No long er eligible based on patient's age to complete this topic Insurance MEDICARE PART A & B [facility] MEDICAID OUT OF STATE [facility] [place] [facility] Care Teams Rooming House Inspector Relationship Specialty Start Date End Date Cm Magallanes MD [address] [place] [address] PCP - General Family Medicine 03/27/22
--- OUTSIDE RECORDS SUMMARY | 2025-06-15 14:25 | XMS_ITS | Encounter Summary ---
Author Organization [facility] Address [address] [place] [address] Care Team Providers Care Fraud Manager Name Role Phone Finn Okeefe MD Primary Care Provider [phone] Encounter Details Date Type Department Care Team (Latest Contact Info) Description 09/22/2024 Lab Requisition [facility] - Main Lab [address] [facility] [place] [id number] Gabino Hayward PA [address] [facility] [address] [place] [address] Type 2 diabetes mellitus without complications (CMS/HCC [...] Info) Description 07/29/2025 1:10 PM EST Consult [facility] [address] [facility] [address] [place] [id number] April Nicole, FISH CLEANER [address] [place] [address] [place] [address] documented as of this encounter Procedures Procedure [...] SST tube (09/22/2024 12:00 AM EST) Pathologist [facility] Extra Tube Hold for add-ons. 01/14/2025 7:[address] [facility] Comment:Auto resulted. Blood Venous blood specimen / Unknown 09/22/2024 09/22/2024 6:27 PM EST us Gabino BESS LAB BLOOD ORDERABLES Final Res ult [facility] [address] [place] [address], [place] [phone] * (ABNORMAL) CBC auto differential (09/22/2024 12:00 AM EST) [facility] WBC 10.6 4.8 - 10.8 K/mcL LAB HEMETOLOGY METHOD 09/22/2024 8:14 PM [facility] RBC 3.60(L) 3.80 - 4.80 M/mcL LAB HEMETOLOGY METHOD 09/22/2024 8:14 PM [facility] Hemoglobin 10.8(L) 11.5 - 16.0 g/dL LAB HEMETOLOGY METHOD 09/22/2024 8:14 PM [facility] Hematocrit 33.2(L) 35.0 - 47.0 % LAB HEMETOLOGY METHOD 09/22/2024 8:14 PM [facility] MCV 92.2 79.0 - 98.0 FL LAB HEMETOLOGY METHOD 09/22/2024 8:14 PM [facility] MCH 30.0 27.0 - 32.0 pcg LAB HEMETOLOGY METHOD 09/22/2024 8:14 PM [facility] MCHC 32.5 32.0 - 37.0 g/dL LAB HEMETOLOGY METHOD 09/22/2024 8:14 PM [facility] RDW 13.1 11.0 - 15.0 % LAB HEMETOLOGY METHOD 09/22/2024 8:14 PM [facility] Platelets 375 130 - 400 K/mcL LAB HEMETOLOGY METHOD 09/22/2024 8:14 PM [facility] MPV 10.2 7.0 - 11.0 FL LAB HEMETOLOGY METHOD 09/22/2024 8:14 PM [facility] NRBC 0.0 <1.0 % LAB HEMETOLOGY METHOD 09/22/2024 8:14 PM [facility] NRBC Absolute 0.00 <0.10 K/mcL LAB HEMETOLOGY METHOD 09/22/2024 8:14 PM [facility] Neutrophils Relative 76.7 % LAB HEMETOLOGY METHOD 09/22/2024 8:14 PM [facility] Lymphocytes Relative 17.4 % LAB HEMETOLOGY METHOD 09/22/2024 8:14 PM [facility] Monocytes Relative 4.2 % LAB HEMETOLOGY METHOD 09/22/2024 8:14 PM [facility] Eosinophils Relative 0.4 % LAB HEMETOLOGY METHOD 09/22/2024 8:14 PM [facility] Basophils Relative 0.8 % LAB HEMETOLOGY METHOD 09/22/2024 8:14 PM [facility] Immature Granulocytes Relative 0.5 % LAB HEMETOLOGY METHOD 09/22/2024 8:14 PM [facility] Neutrophils Absolute 8.15(H) 1.50 - 7.00 K/mcL LAB HEMETOLOGY METHOD 09/22/2024 8:[address] [facility] Lymphocytes Absolute 1.85 1.00 - 5.00 K/[facility] LAB HEMETOLOGY METHOD 09/22/2024 8:[address] [facility] Monocytes Absolute 0.45 0.20 - 1.00 K/[facility] LAB HEMETOLOGY METHOD 09/22/2024 8:[address] [facility] Eosinophils Absolute 0.04 0.00 - 0.50 K/[facility] LAB HEMETOLOGY METHOD 09/22/2024 8:[address] [facility] Basophils Absolute 0.08 0.00 - 0.20 K/[facility] LAB HEMETOLOGY METHOD 09/22/2024 8:14 PM [facility] Immature Granulocytes Absolute 0.05(H) 0.00 - 0.03 K/[facility] LAB HEMETOLOGY METHOD 09/22/2024 8:14 PM [facility] Blood Venous blood specimen / Unknown 09/22/2024 09/22/2024 6:27 PM EST us Gabino BESS LAB BLOOD ORDERABLES Final Res ult [facility] [address] [place] [address], * (ABNORMAL) Urinalysis microscopic only (09/22/2024 12:00 AM EST) RBC, Urine 3.0 0 - 4 /HPF LAB URINALYSIS - AUTOMATED METHOD 09/22/2024 8:05 PM [facility] WBC, Urine 12.1(H) 0 - 4 /HPF LAB URINALYSIS - AUTOMATED METHOD 09/22/2024 8:05 PM [facility] Squamous Epithelial, Urine >100(H) 0 - 60 /LPF LAB URINALYSIS - AUTOMATED METHOD 09/22/2024 8:05 PM [facility] Non-Squamous Epithelial, Urine 10-20 Transitional epithelial cells. /LPF 09/22/2024 8:05 PM [facility] Bacteria, Urine Moderate(A) Negative /HPF LAB URINALYSIS - AUTOMATED METHOD 09/22/2024 8:05 PM [facility] Hyaline Casts, Urine 2.8 0 - 3 /LPF LAB URINALYSIS - AUTOMATED METHOD 09/22/2024 8:05 PM [facility] Urine Urine specimen obtained by clean catch procedure / Unknown 09/22/2024 09/22/2024 6:27 PM EST Gabino BESS LAB URINE ORDERABLES Final Res ult Performing Organization Address [facility]/ZIP Co de Phone Number [facility] [address] [place] [address], [place] [phone] * Thyroid stimulating hormone (09/22/2024 12:00 AM EST) TSH 3.94 0.40 - 4.00 mcIU/mL LAB CHEMISTRY METHOD 09/22/2024 7:21 PM [facility] Blood Venous blood specimen / Unknown 09/22/2024 09/22/2024 6:27 PM EST Gabino BESS LAB BLOOD ORDERABLES Final Res ult [facility] [address] [place] [address], [place] [phone] * Thyroxine free (09/22/2024 12:00 AM EST) Free T4 1.19 0.70 - 1.80 ng/dL LAB CHEMISTRY METHOD 09/22/2024 7:21 PM [facility] Blood Venous blood specimen / Unknown 09/22/2024 09/22/2024 6:27 PM EST Gabino BESS LAB BLOOD ORDERABLES Final Res ult [facility] [address] [place] [address], [place] [phone] * Hemoglobin A1c (09/22/2024 12:00 AM EST) Pathologist [facility] Hemoglobin A1C 5.3 <6.5 % LAB CHEMISTRY METHOD 09/23/2024 12:[address] [facility] Mean Bld Glu Estim. 105 mg/dL LAB CHEMISTRY METHOD 09/23/2024 12:41 PM [facility] Blood Venous blood specimen / Unknown 09/22/2024 09/22/2024 6:27 PM EST Gabino BESS LAB BLOOD ORDERABLES Final Res ult Performing Organization Address City/[facility]/ZIP Co de Phone Number [facility] [address] [place] [address], [place] [phone] * (ABNORMAL) Comprehensive metabolic panel (09/22/2024 12:00 AM EST) Pathologist [facility] Sodium 138 133 - 145 mmol/L LAB CHEMISTRY METHOD 09/22/2024 7:22 PM [facility] Potassium 4.1 3.5 - 5.5 mmol/L LAB CHEMISTRY METHOD 09/22/2024 7:22 PM [facility] Chloride 101 96 - 110 mmol/L LAB CHEMISTRY METHOD 09/22/2024 7:22 PM [facility] CO2 31 21 - 32 mmol/L LAB CHEMISTRY METHOD 09/22/2024 7:22 PM [facility] Anion Gap 6 3 - 11 LAB CHEMISTRY METHOD 09/22/2024 7:22 PM [facility] Glucose 102(H) 70 - 100 mg/dL LAB CHEMISTRY METHOD 09/22/2024 7:22 PM [facility] BUN 25 5 - 25 mg/dL LAB CHEMISTRY METHOD 09/22/2024 7:22 PM [facility] Creatinine 1.22(H) 0.50 - 1.10 mg/dL LAB CHEMISTRY METHOD 09/22/2024 7:22 PM [facility] eGFR 46(L) >=60 mL/min/1. 73m2 LAB CHEMISTRY METHOD 09/22/2024 7:22 PM [facility] Comment:Calculation based on the Chronic Kidney Disease Epidemiology Collaboration (CKD-EPI) equation refit without adjustment for race. BUN/Creatinine Ratio 20.5 LAB CHEMISTRY METHOD 09/22/2024 7:22 PM [facility] Calcium 10.5 8.5 - 10.5 mg/dL LAB CHEMISTRY METHOD 09/22/2024 7:22 PM [facility] AST (SGOT) 16 10 - 42 unit/L LAB CHEMISTRY METHOD 09/22/2024 7:22 PM [facility] ALT (SGPT) 17 10 - 60 unit/L LAB CHEMISTRY METHOD 09/22/2024 7:22 PM [facility] Alkaline Phosphatase 156(H) 42 - 121 unit/L LAB CHEMISTRY METHOD 09/22/2024 7:22 PM [facility] Total Protein 6.7 6.0 - 8.0 g/dL LAB CHEMISTRY METHOD 09/22/2024 7:22 PM [facility] Albumin 3.8 3.2 - 5.0 g/dL LAB CHEMISTRY METHOD 09/22/2024 7:22 PM [facility] Total Bilirubin 0.3 0.0 - 1.4 mg/dL LAB CHEMISTRY METHOD 09/22/2024 7:22 PM [facility] Blood Venous blood specimen / Unknown 09/22/2024 09/22/2024 6:27 PM EST us Gabino BESS LAB BLOOD ORDERABLES Final Res ult [facility] ([facility]) [facility] [address] [place] [address], documented in this encounter Visit Diagnoses Diagnosis Type 2 diabetes mellitus without complications (CMS/HCC V24, CMS/HCC V28) Interstitial cystitis (chronic) without hematuria Pain in unspecified joint Chronic fatigue, unspecified Other retention of urine documented in this encounter Care Teams Fraud Manager Relationship Specialty Start Date End Date Finn Okeefe MD [address] [place] [id number] PCP - General Internal Medicine 06/02/25 documented as of this encounter
--- OUTSIDE RECORDS SUMMARY | 2025-06-15 14:25 | XMS_ITS | Clinical Summary ---
Author Organization [facility] Address [address] [place] [address] Care Team Providers Care Portable Sawmill Operator Name Role Phone Cm Magallanes Primary Care [...] Health Maintenance Due Date Last Done Comments DTaP,Tdap,and Td Vaccines (1 - Tdap) 1968 CT Lung Cancer Screening (Baseline) 1996 Osteoporosis Screening 1996 Pneumococcal Vaccine: 50+ Years (1 of 1 - PCV) 1996 Zoster Vaccines (2 of 2) 11/09/2019 09/14/2019 RSV Vaccine (60+ years old and patients) (1 - 1-dose 75+ series) 2021 Alcohol/Substance Use Screening 08/19/2024 Health Care Proxy Review 08/19/2024 COVID-19 Vaccine (4 - 2024-2 6 season) 2025 06/22/2021, 11/17/2020, 10/27/2020 Influenza Vaccine (#1) 2025 04/19/2013 Hepatitis B Vaccines Aged Out No long er eligible based on patient's age to complete this topic Insurance [facility] Care Teams Portable Sawmill Operator Relationship Specialty Start Date End Date Cm Magallanes [address] [place] [id number] PCP - General 03/07/17
--- OUTSIDE RECORDS SUMMARY | 2025-06-15 14:25 | XMS_ITS | Patient Health Record ---
Author Organization [facility] Address [address] [facility] [address] [place] [address] Care Team Providers Care Buffing Wheel Inspector Name Role Phone Gabino Hayward Unavailable [phone] Migration, Provider Unavailable Unavailable Reason For Referral No Information Medications Medication SIG (Take, Route, Frequency, Duration) Notes Start Date End Date Status Ondansetron HCl 4 MG Tablet TAKE 1 TABLE T BY MOUTH EVERY 12 HOURS NEEDED; Duration: 10 Active Encounters Encounter Location Date Provider Diagnosis [facility], [address] [address] 07/23/2024 Provider Migration [facility], [address] [address] 08/25/2024 Provider Migration [facility], [address] [address] 09/01/2024 Provider Migration [facility], [address] [address] 09/01/2024 Gabino Hayward [facility], [address] [address] 09/22/2024 Provider Migration [facility], [place] [address] [address] 10/06/2024 Gabino Hayward [facility] [place] [address] [address] 10/06/2024 Provider Migration [facility], [place] [address] [address] 10/09/2024 Gabino Hayward [facility] [place] [address] [address] 12/02/2024 Gabino Hayward [facility], [address] [address] 12/09/2024 Gabino Hayward [facility] [place] [address] [place] [address] 02/11/2025 Gabino Hayward [facility] [place] [address] [place] [address] 01/27/2025 Gabino Hayward [facility] [place] [address] [place] [address] 02/11/2025 Gabino Hayward Plan Of Treatment No Information Insurance Providers Payer Name Payer Address Payer Phone Subscriber Number Group Number Insured Name Patient Relationship to Insured Coverage Start Date Coverage End Date A [employer] [address] [facility] [place] [phone] [id number] [place] Self - patient is the insured [facility] Indemnity Plan [address] [place] [address] [id number] [place] Self - patient is the insured
--- OUTSIDE RECORDS SUMMARY | 2025-06-15 14:25 | XMS_ITS | Clinical Summary ---
Author Organization [facility] [employer] [facility] Address [address] [facility] [place] [address] Phone Care Team Providers Care Tin Stacker Name Role Phone Finn Okeefe MD Primary Care Provider [phone] Allergies Active Allergy Reactions Criticality Noted Date Comments Exenatide Nausea And Vomiting 03/21/2021 Metformin Nausea And Vomiting 03/21/2021 Rosuvastatin 03/21/2021 Aches and pains Sertraline Low 03/21/2021 Simvastatin 03/21/2021 Medications famotidine (PEPCID ORAL) Take by mouth if needed. Active GABAPENTIN ORAL Take 100 mg by mouth 4 (four) times a day. Active ONDANSETRON ORAL Take 4 mg by mouth if needed. 07/08/20 22 Active acetaminophen (TYLENOL) 500 mg tablet Take 1 tablet (500 mg total) by mouth every 6 (six) hours if needed. Active apixaban (Eliquis) 5 mg tablet Take 1 tablet (5 mg total) by mouth 2 (two) times a day. 08/23/19 23 Active insulin degludec (Tresiba FlexTouch U-100) 100 unit/mL (3 mL) injection pen Inject 36 Units under the skin 1 (one) time each day. 02/26/20 22 Active lisinopril (PRINIVIL,ZESTR IL) 40 mg tablet Take 1 tablet (40 mg total) by mouth 1 (one) time each day. Active mirtazapine (REMERON) 45 mg tablet Take 1 tablet (45 mg total) by mouth 1 (one) time each day in the evening. 03/28/20 25 Active furosemide (LASIX) 20 mg tablet Take 1 tablet (20 mg total) by mouth every other day. Active dilTIAZem CD (CARDIZEM CD) 240 mg 24 hr capsule Take 1 capsule (240 mg total) by mouth 1 (one) time each day. 30 each 05/11/20 25 026 Active clopidogreL (PLAVIX) 75 mg tablet TAKE 1 TABLET BY MOUTH 1 TIME EACH DAY. 90 tablet 1 05/24/20 25 Active evolocumab (Repatha SureClick) 140 mg/mL pen injector injectionIndica tions:Cerebral infarction, unspecified (CMS/HCC V24, CMS/HCC V28) Inject 1 mL (140 mg total) under the skin every 14 (fourteen) days. 6 mL 2 05/26/20 25 Active latanoprost (XALATAN) 0.005 % ophthalmic solution 1 drop at bedtime. Active carvediloL (COREG) 3.125 mg tablet Take 1 tablet (3.125 mg total) by mouth 2 (two) times a day with meals. 60 each 06/02/20 25 026 Active clopidogreL (PLAVIX) 75 mg tablet Take 1 tablet (75 mg total) by mouth 1 (one) time each day. 90 tablet 1 12/01/19 25 025 Discontinued evolocumab (Repatha SureClick) 140 mg/mL pen injector injectionIndica tions:Cerebral infarction, unspecified (CMS/HCC V24, CMS/HCC V28) INJECT 1 ML INTO THE SKIN EVERY 14 DAYS 90 mL 1 02/18/20 25 025 Discontinued(Re order) Active Problems Problem Noted Date Diagnosed Date [...] test. She will be referred to a pewter fabricator as well. Orders: Nuclear stress test with myocardial perfusion; Future Ambulatory referral to Pulmonology; Future CT Angio Chest wo and/or w Contrast; Future CAD (coronary artery disease) 11/13/2024 Overview (05/11/2025): - s/p LUISM IGUEL to RCA and circumflex 08/2024 -Cardiac catheterization 08/2024 following positive nuclear stress test showing diffuse disease of the left main, 50% stenosis of the mid subsection of the mid LAD, 60% stenosis in the distal subsection of the distal LAD, 95% heavily calcified stenosis in the proximal subsection of the circumflex receiving a drug-eluting stent, 40% stenosis in the proximal subsection of the proximal RCA, and 99% heavily calcified stenosis in the mid subsection of the mid RCA also receiving a LUIS MIGUEL, 40% stenosis in the proximal subsection of the distal RCA, and 50% stenosis to the mid to distal RCA -Echocardiogram 09/2024 shows normal LVEF 60-65%, grade 1 diastolic dysfunction, and mild aortic regurgitation. -Updated pharmacologic nuclear stress test 11/2024 for symptoms of breathlessness was normal Assessment & Plan (05/11/2025 3:51 PM EDT): The patient does not have any anginal sounding discomfort to her somewhat limited MET workload. She did not have any ischemia on pharmacologic nuclear stress test 11/2024 following her double vessel stenting in August 2024. She typically remains on calcium channel georgette entheses due to intolerance of beta-georgette), clopidogrel, and Repatha. Assessment & Plan (01/06/2025 8:22 AM EDT): [...] Carpal tunnel syndrome of right wrist 07/19/2023 Paroxysmal atrial fibrillation (CMS/HCC V24, CMS /HCC V28) 05/16/2023 Overview (05/11/2025): - Prior CVA - Atrial fibrillation noted on ILR -Anticoagulated with apixaban Assessment & Plan (05/11/2025 3:49 PM EDT): The patient has paroxysmal episodes of atrial fibrillation as noted on her ILR. Today, she is in sinus tachycardia though with a heart rate of 111. She does have some back pain which may be driving her heart rate and blood pressure elevations. Will increase her diltiazem to 240 mg daily to better control her heart rate controlled sinus and A-fib. She will notify us of any changes in her current condition. Historically, she has not tolerated beta-georgette therapy. Atrial fibrillation heart rates remain problematic, consideration could be given for amiodarone for rate and rhythm control. She remains anticoagulated with apixaban. She has not had any bleeding issues. She does not yet qualify for dose reduction as she is not yet 81 years old. Assessment & Plan (01/06/2025 8:22 AM EDT): Patient with history of paroxysmal atrial fibrillation seen on ILR. ILR implanted due to history of a stroke. She continues on diltiazem for rate control and Eliquis for stroke risk reduction. Her VEJ5OI1-CWUy score is 8. She continues on 5 mg twice daily based on her age, weight and kidney function. ECG today showing NSR. Assessment & Plan (11/20/2024 11:52 AM EDT): Patient with history of paroxysmal atrial fibrillation seen on ILR. ILR implanted due to history of a stroke. She continues on diltiazem for rate control and Eliquis for stroke risk reduction. Her OVT1LX1-ZEGd score is 8. She continues on 5 [...] Patient should continue follow-up with vascular. Cardiomyopathy ([facility] V24, [facility] V28) 2022 Cryptogenic stroke ([facility] V24, [facility] V28) Spondylolisthesis of lumbar region 05/08/2022 Cerebrovascular accident (CVA) ([facility] V24, [facility] V28) 04/23/2022 SVT (supraventricular tachycardia) ([facility] V24) 04/23/2022 HLD (hyperlipidemia) 04/18/2022 Overview (05/11/2025): Statin intolerant, on Repatha Assessment & Plan (05/11/2025 3:53 PM EDT): Patient's LDL is reasonly well-controlled on last check in 10/2024. She remains on Repatha. Continue Assessment & Plan (01/06/2025 8:22 AM EDT): [...] diet. HTN (hypertension) 04/18/2022 Assessment & Plan (05/11/2025 3:48 PM EDT): Patient's blood pressure is robust in the office today. Her hydrochlorothiazide was recently transitioned to furosemide and every other day dosing due to her recent gout flare. Loop diuretics also carry a risk for some gouty flares, but she seems to be doing okay with this for now. Will increase her diltiazem to 240 mg daily which will also help to control her heart rate. Her will continue to follow her blood pressure and heart rate at home. Assessment & Plan (01/06/2025 8:22 AM EDT): [...] today, 120/68, continue on current antihypertensive regimen. Resolved Problems Problem Noted Date Diagnosed Date Resolved Date Mixed hyperlipidemia 05/16/2023 025 Encounters Date Type Department Care Team Description 06/10/2025 11:30 AM EDT Ancillary Procedure [facility] Cardiology [facility] [address] [address] [place] [address] 06/10/2025 9:50 AM EDT Ancillary Procedure [facility] [address] [place] [address] 06/09/[address] [facility] [address] [place] [address] Yudy Sutton MA 06/02/2025 10:20 AM EDT Office Visit [facility] Cardiology [facility] [address] [place] [address] Santino Delarosa MD Coronary artery disease involving quartz valley coronary artery of quartz valley heart without angina pectoris (Primary Dx); Paroxysmal atrial fibrillation (CMS/HCC V24, CMS/HCC V28); Hypertension, unspecified type; Hyperlipidemia, unspecified hyperlipidemia type; Stenosis of right carotid artery 05/31/2025 8:36 AM EDT - 05/31/2025 11:59 PM EDT Hospital Encounter [facility] Ultrasound [address] [place] [phone] Thyroid nodule Discharge Disposition: Home or Self Care 05/26/2025 Telephone [facility] [address] [place] [address] Kelly Malone NP 05/18/2025 12:40 PM EDT Ancillary Procedure [facility] [address] [place] [phone] 05/11/2025 2:40 PM EDT Office Visit [facility] [address] [place] [phone] Diane Franz NP Coronary artery disease involving quartz valley coronary artery of quartz valley heart without angina pectoris (Primary Dx); Cardiomyopathy, unspecified type (CMS/HCC V24, CMS/HCC V28); Primary hypertension; Paroxysmal atrial fibrillation (CMS/HCC V24, CMS/HCC V28); Mixed hyperlipidemia; Preop cardiovascular exam 05/03/2025 4:04 PM EDT - 05/03/2025 11:59 PM EDT Hospital Encounter [facility] MRI [address] [place] [phone] Radiculopathy of lumbar region Discharge Disposition: Home or Self Care 04/26/2025 Telephone [facility] [address] [place] [address] Provider, Not In System 04/08/2025 10:29 AM EDT - 04/08/2025 11:59 PM EDT Hospital Encounter [facility] Xray [address] [place] [phone] Pain in right hip Discharge Disposition: Home or Self Care 03/23/2025 6:20 PM EDT Ancillary Procedure [facility] Cardiology [facility] [address] [place] [address] 03/23/2025 12:10 PM EDT Ancillary Procedure [facility] [address] [place] [address] 03/23/2025 Telephone [facility] Cardiology [facility] [address] [address] [place] [phone] April Nicole NP from Last 3 Months Surgical History Surgery Date Site/Laterality Comments OTHER SURGICAL HISTORY 02/13/2022 PROCEDURE: IN EGD PARTIAL/COMPL ESOPHAGOGASTRIC FUNDOPLASTY OTHER SURGICAL HISTORY PROCEDURE: IN ARTHRODESIS POSTERIOR/PSTLAT TQ 1NTRSPC LUMBAR CARDIAC CATHETERIZATION DONE ON 09/08/2024 AT [facility] INDICATIONS: Abnormal nuclear perfusion study CORONARY ANGIOPLASTY [...] CMS/HCC V28) DX:Type 2 diabetes mellitus (HCC) Hypertension Hyperlipidemia Lumbar radiculopathy John's esophagus with dysplasia Family History Medical History Relation Name Comments [...] Sign Reading Time Taken Comments Blood Pressure 142/80 06/02/2025 10:18 AM EDT Pulse 100 06/02/2025 10:18 AM EDT Temperature 36.4 C (97.5 F) 12/31/2024 1:56 PM EDT Respiratory Rate 18 12/02/2024 1:16 PM EDT Oxygen Saturation 95% 06/02/2025 10:18 AM EDT Inhaled Oxygen Concentration - - Weight 93.9 kg (207 lb) 06/02/2025 10:18 AM EDT Height 162.6 cm (5' 4 ) 06/02/2025 10:18 AM EDT Body Mass Index 35.53 06/02/2025 10:18 AM EDT Plan of Treatment Upcoming Encounters Date Type Department Care Team (Late st Contact Info) Description 07/29/2025 1:10 PM EST Consult [facility] [address] [facility] [address] [place] [address] April Nicole NP [address] [place] [address] [place] [address] Health Maintenance Due Date Last Done Comments [...] 05/23/2022, 05/08/2021, Additional history exists Diabetes: Annual Urine Albumin-Creatinine Ratio (uACR) 03/05/2026 03/05/2025, 02/15/2025, 12/16/2024 Diabetes: Annual GFR (Glomerular Filtration Rate) 05/04/2026 05/04/2025, 03/01/2025, 12/02/2024, Additional history exists Hypertension/CHF/CAD Annual BMP Blood Test 05/04/2026 05/04/2025, 03/01/2025, 12/02/2024, Additional history exists DTaP,Tdap,and Td Vaccines (2 - Td or [...] this topic Medical Devices Implanted Type Area Group Exercise Class Instructor Device Identifier Shelf Expiration Date Model / Serial / Lot Bsci-Crm [id number] Implanted:05/20 (Quantity not on file) Cardiac Loop Recorder Bahu CARD RHYTHM MGMT [id number] / [id number] / Procedures Procedure Name Priority Date/Time Associated Diagnosis Comments CARDIAC DEVICE CHECK- REMOTE- MURJ Routine 06/10/2025 11:25 AM EDT CARDIAC DEVICE CHECK- REMOTE- MURJ Routine 06/10/2025 9:46 AM EDT US HEAD NECK SOFT TISSUE Routine 05/31/2025 9:14 AM EDT Thyroid nodule CARDIAC DEVICE CHECK- REMOTE- MURJ Routine 05/18/2025 12:36 PM EDT ECG 12-LEAD Routine 05/11/2025 3:58 PM EDT Cardiomyopathy, unspecified type (CMS/HCC V24, CMS/HCC V28) MR LUMBAR SPINE WO CONTRAST Routine 05/03/2025 5:00 PM EDT Radiculopathy of lumbar region XR HIP 2-3 VIEWS RIGHT Routine 04/08/2025 10:43 AM EDT Pain in right hip CARDIAC DEVICE CHECK- REMOTE- MURJ Routine 03/23/2025 6:16 PM EDT CARDIAC DEVICE CHECK- REMOTE- MURJ Routine 03/23/2025 12:08 PM EDT BASIC METABOLIC PANEL STAT 12/02/2024 11:51 AM EDT LIPID PANEL Routine 11/13/2024 8:27 AM EDT Coronary artery disease involving quartz [place] heart with angina pectoris, unspecified vessel or lesion type (CMS/HCC V24) HEMOGLOBIN A1C Routine 09/22/2024 12:00 AM EST Type 2 diabetes mellitus without complications (CMS/HCC) Interstitial cystitis (chronic) without hematuria Pain in unspecified joint Chronic fatigue, unspecified Other retention of urine MAYDA DEXA AXIAL SKELETON Routine 08/06/2023 3:34 PM EST Age-related osteoporosis without current pathological fracture from Last 3 Months or Most Recently Relevant to Health Maintenance Results * Cardiac device check - Remote- MURJ (06/10/2025 11:25 AM EDT) Only the most recent of5 resultswithin the time period is included. Date Time Interrogation Session [id number] CV DEVICE CHECK Type Interrogation Session Remote Scheduled CV DEVICE CHECK Implantable Pulse Generator Group Exercise Class Instructor BSX CV DEVICE CHECK Implantable Pulse Generator Type ILR CV DEVICE CHECK Implantable Pulse Generator Model M301 CV DEVICE CHECK Implantable Pulse Generator Serial Number [id number] CV DEVICE CHECK Implantable Pulse Generator Implant Date 20220608 CV DEVICE CHECK Battery Status Beginning of Service CV DEVICE CHECK Atrial Tachy Statistic AT/AF Diller Percent 1.00 CV DEVICE CHECK Date of [...] IMPLANTABLE CARDIAC DEVICE PROCEDURES Final Result * US Head Neck Soft Tissue (05/31/2025 9:14 AM EDT) Anatomical Region Laterality Modality Head and Neck Ultrasound 06/07/2025 3:18 PM EDT Impressions 06/07/2025 3:21 PM EDT No significant change in a previously biopsied 2.4 cm TI RADS 3 nodule in the left thyroid lobe. Telerad PA ([id number]) -------- FINAL REPORT -------- Dictated By: Daniela Khan Dictated Date: 06/07/2025 15:18 ET Assigned Physician: Daniela Khan Reviewed and Electronically Signed By: Daniela Khan Signed Date: 06/07/2025 15:21 ET Workstation ID: [id number] Transcribed By: Self Edit Transcribed Date: 06/07/2025 15:18 ET Narrative 06/07/2025 3:21 PM EDT HISTORY: Follow-up thyroid nodule. Ultrasound-guided FNA of [...] focal nodule. LEFT LOBE: The left lobe remains mildly enlarged, measuring 4.3 x 2.1 x 2.0 cm (3.7 x 1.6 x 2.2 cm previously). A circumscribed solid, isoechoic nodule is again seen in the interpolar area, measuring 2.4 x 2.1 x 2.1 cm (2.0 x 1.7 x 2.5 cm previously), previously biopsied. TI RADS 3 ISTHMUS: The isthmus is normal in thickness, measuring 0.2 cm, and without focal nodule. Procedure Note Daniela Khan MD - 06/07/2025 HISTORY: Follow-up thyroid nodule. Ultrasound-guided FNA of a solid leftlobe nodule in 2019. COMPARISON: 12/30/17, thyroid FNA 10/08/18 FINDINGS: High resolution real-time imaging of the thyroid gland was performed. RIGHT LOBE: The right lobe is normal in size, measuring 3.4 x 1.4 x 1.7 cm (3.2 x 1.0x 2.3 cm previously). The right lobe thyroid parenchyma remainshomogeneous, without focal nodule. LEFT LOBE: The left lobe remains mildly enlarged, measuring 4.3 x 2.1 x 2.0 cm (3.7 x1.6 x 2.2 cm previously). A circumscribed solid, isoechoic nodule is again seen in the interpolararea, measuring 2.4 x 2.1 x 2.1 cm (2.0 x 1.7 x 2.5 cm previously),previously biopsied. TI RADS 3 ISTHMUS: The isthmus is normal in thickness, measuring 0.2 cm, and without focalnodule. IMPRESSION: No significant change in a previously biopsied 2.4 cm TI RADS 3 nodule inthe left thyroid lobe. Telekriss BESS ([id number]) -------- FINAL REPORT -------- Dictated By: Daniela Khan Dictated Date: 06/07/2025 15:18 ET Assigned Physician: Daniela Khan Reviewed and Electronically Signed By: Daniela Khan Signed Date: 06/07/2025 15:21 ET Workstation ID: [id number] Transcribed By: Self Edit Transcribed Date: 06/07/2025 15:18 ET us Criss BESS IMG US PROCEDURES Final Resu lt * ECG 12 lead (05/11/2025 3:58 PM EDT) Ventricular Rate ECG 111 BPM GEMUSE Atrial Rate 111 BPM GEMUSE P-R Interval 140 ms GEMUSE QRS Duration 82 ms GEMUSE Q-T Interval 282 ms GEMUSE QTc 383 ms GEMUSE P Wave Elsie 69 degrees GEMUSE R Elsie 62 degrees GEMUSE T Elsie -10 degrees GEMUSE ECG Interpretation Sinus tachycardia , diltiazem increased ST and T wave abnormality, consider inferior ischemia When compared with ECG of 02-DEC-2024 10:47, ST now depressed in Inferior leads ST now depressed in Lateral leads T wave inversion now evident in Inferior leads Confirmed by MAGALIE TALLEY ([id number]) on 05/11/2025 8:04:48 PM GEMUSE 05/11/2025 2:43 PM EDT 05/11/2025 8:04 PM EDT us Diane Franz NP ECG ORDERABLES Edited Result - Final GEMUSE * MR Lumbar Spine wo Contrast (05/03/2025 [...] Signed Date: 05/05/2025 10:06 ET Workstation ID: [id number] Transcribed By: Self Edit Transcribed Date: 05/05/2025 [...] Signed Date: 05/05/2025 10:06 ET Workstation ID: [id number] Transcribed By: Self Edit Transcribed Date: 05/05/2025 09:38 ET Criss BESS IMG MRI PROCEDURES Final Res ult * XR Hip 2-3 Views Right (04/08/2025 10:43 AM EDT) Anatomical Region Laterality Modality Lower Extremities, Hip Right Radiograp hic Imaging 04/08/2025 10:5 0 AM EDT Impressions 04/08/2025 10:53 AM EDT No acute findings. 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 The patient is seen to have undergone previous posterior fixation surgery in the lower lumbar spine. Code 00425 -------- FINAL REPORT -------- Dictated By: Jacoby Chavez Dictated Date: 04/08/2025 10:50 ET Assigned Physician: Jacoby Chavez Reviewed and Electronically Signed By: Jacoby Chavez Signed Date: 04/08/2025 10:53 ET Workstation ID: [id number] Transcribed By: Self Edit Transcribed Date: 04/08/2025 [...] fixation surgery inthe lower lumbar spine. Code 22642 -------- FINAL REPORT -------- Dictated By: Jacoby Chavez Dictated Date: 04/08/2025 10:50 ET Assigned Physician: Jacoby Chavez Reviewed and Electronically Signed By: Jacoby Chavez Signed Date: 04/08/2025 10:53 ET Workstation ID: [id number] Transcribed By: Self Edit Transcribed Date: 04/08/2025 10:50 ET us Criss BESS IMG XR PROCEDURES Final Resu lt * (ABNORMAL) Basic metabolic panel (12/02/2024 11:51 AM EDT) Sodium 138 133 - 145 mmol/L LAB CHEMISTRY METHOD 12/02/2024 12:33 PM EDT [facility] Potassium 3.8 3.5 - 5.5 mmol/L LAB CHEMISTRY METHOD 12/02/2024 12:33 PM [facility] Chloride 103 96 - 110 mmol/L LAB CHEMISTRY METHOD 12/02/2024 12:33 PM [facility] CO2 28 21 - 32 mmol/L LAB CHEMISTRY METHOD 12/02/2024 12:33 PM [facility] Anion Gap 7 3 - 11 LAB CHEMISTRY METHOD 12/02/2024 12:33 PM [facility] Glucose 93 70 - 100 mg/dL LAB CHEMISTRY METHOD 12/02/2024 12:33 PM [facility] BUN 23 5 - 25 mg/dL LAB CHEMISTRY METHOD 12/02/2024 12:33 PM [facility] Creatinine 1.27(H) 0.50 - 1.10 mg/dL LAB CHEMISTRY METHOD 12/02/2024 12:33 PM [facility] eGFR 43(L) >=60 mL/min/1. 73m2 LAB CHEMISTRY METHOD 12/02/2024 12:33 PM [facility] Comment:Calculation based on the Chronic Kidney Disease Epidemiology Collaboration (CKD-EPI) equation refit without adjustment for race. BUN/Creatinine Ratio 18.1 LAB CHEMISTRY METHOD 12/02/2024 12:33 PM [facility] Calcium 9.9 8.5 - 10.5 mg/dL LAB CHEMISTRY METHOD 12/02/2024 12:33 PM [facility] Blood Venous blood specimen / Unknown Venipuncture / Unknown 12/02/2024 11:51 AM EDT 12/02/2024 12:00 PM EDT us Dandre Salas DO LAB BLOOD ORDERABLES Final Result [facility] [address] [place] [address], * (ABNORMAL) Lipid panel (11/13/2024 8:27 AM [...] - 11/13/2024 11:06 PM EDT Performed at: - [facility] [address] [id number] Grain Elevator Agent: Nikki Valle MD, Phone: [phone] us Kelly Malone GLOVE [employer] LAB BLOOD ORDERABLES Final Res ult [facility] * Hemoglobin A1c (09/22/2024 12:00 AM EST) Hemoglobin A1C 5.3 <6.5 % LAB CHEMISTRY METHOD 09/23/2024 12:41 PM EST [facility] Mean Bld Glu Estim. 105 mg/dL LAB CHEMISTRY METHOD 09/23/2024 12:41 PM EST [facility] Blood Venous blood specimen / Unknown 09/22/2024 09/22/2024 6:27 PM EST us Gabino BESS LAB BLOOD ORDERABLES Final Res ult [facility] [address] [place] [address], [place] [phone] * MAYDA DEXA AXIAL SKELETON (08/06/2023 3:34 PM EST) Anatomical Region Laterality Modality Mammography 08/06/2023 1:47 PM EST Narrative 08/06/2023 3:34 PM EST [facility] Diagnostic Imaging Department [address] [place] [address] Patient: ALANISSTARR AGUIRRE Julio /Age/Sex: 1945 - 78 - F Unit#: [id number] Location/Status: SPDIMAM/REG CLI Mnemonic/Ordering Site: MAMDEXAAX/SPMAM Ordering Physician: MYLES MAGALLANES MD Mayda Dexa Axial Skeleton - 08/06/239 Report Status:Signed History: Low estrogen state due to menopause. Personal history of fracture. Findings: Bone densitometry is performed utilizing dual energy x-ray absorptiometry (DXA) in the Ultimate [employer] unit. The lumbar spine and proximal femora [...] 25.1 percent Hip 7.8 percent. IMPRESSION: Osteoporosis. [id number] Dictating Physician: DANIELA KHAN MD Electronically Signed by: DANIELA KHAN MD Dic Date/Time: 08/06/231533 Sign date/Time: 08/06/231533 Procedure Note Daniela Khan MD - 09/24/2023 [facility] Diagnostic Imaging Department [address] [place] [id number] Patient: ANJELSTARR Kim /Age/Sex: 1945 - 78 - F Unit#: [id number] Location/Status: SPDIMAM/REG CLI Mnemonic/Ordering Site: MAMDEXAAX/SPMAM Ordering Physician: MYLES MAGALLANES MD Mayda Dexa Axial Skeleton - 08/06/23 - 1361 Report Status:Signed History: Low estrogen state due to menopause. Personal history offracture. Findings: Bone densitometry is performed utilizing dual energy x-ray absorptiometry(DXA) in the Ultimate [employer] unit. The lumbar spine and proximal femora [...] 25.1 percent Hip 7.8 percent. IMPRESSION: Osteoporosis. [id number] Dictating Physician: DANIELA KHAN MD Electronically Signed by: DANIELA KHAN MD Dic Date/Time: 08/06/231533 Sign date/Time: 08/06/231533 Myles Magallanes MD IMG BI PROCEDURES Final Res ult from Last 3 Months or Most Recently Relevant to Health Maintenance Insurance [facility] Care Teams Tin Stacker Relationship Specialty Start Date End Date Finn Okeefe MD [address] [place] [address] [place] [id number] PCP - General Internal Medicine 06/02/25
--- OUTSIDE RECORDS SUMMARY | 2025-06-15 14:26 | XMS_ITS | Encounter Summary ---
Author Organization [facility] Address [address] [place] [address] Care Team Providers Care Production Clerks Supervisor Name Role Phone iFnn Okeefe MD Primary Care Provider [phone] Encounter Details Date Type Department Care Team (Late st Contact Info) Description 06/25/2024 Lab Requisition [facility] - Main Lab [address] [place] [address] Rogelio Montenegro MD [address] [place] [address] John's esophagus with dysplasia, unspecified Social History [...] Info) Description 07/29/2025 1:10 PM EST Consult [facility] - [address] [facility] [address] [place] [address] April Nicole NP [facility] [place] [address] documented as of this encounter Procedures Procedure [...] and no dysplasia identified. 06/26/2024 4:01 PM [facility] Comment County Extension Agent slide(s) from this case have been presented at Anatomic Pathology Intradepartmental Review Conference on 06/26/24. 06/26/2024 4:01 PM [facility] Gross Description A. Esophagus, GE junction: Labeled GE junction biopsy. Received in formalin are seven soft, jackson tissue fragments, ranging from 0.1 cm to 0.6 cm in greatest diameters, which are wrapped in paper and submitted in toto in one cassette, seven pieces, multiple levels on one slide. GABBIE 06/26/2024 4:01 PM [facility] Disclaimer Unless otherwise specified, all tissue is 10% NB formalin fixed and paraffin embedded. 06/26/2024 4:01 PM [facility] Tissue Esophageal structure / Unknown 06/25/2024 06/25/2024 2:52 PM EST Rogelio Montenegro MD LAB PATHOLOGY ORDERABLES Final Result [facility] [address] [place] [address], documented in this encounter Visit Diagnoses Diagnosis John's esophagus with dysplasia, unspecified documented in this encounter Care Teams Production Clerks Supervisor Relationship Specialty Start Date End Date Finn Okeefe MD [address] [place] [address] PCP - General Internal Medicine 06/02/25 documented as of this encounter
--- OUTSIDE RECORDS SUMMARY | 2025-06-15 14:26 | XMS_ITS | Encounter Summary ---
Author Organization [facility] Address [address] [address] Phone Care Team Providers Care Printer'S Assistant Name Role Phone Gabino Hayward Jr. Primary Care Provider [phone] Reason for Visit * Reason Onset Date Comments Med Refill 05/22/2025 Encounter Details Date Type Department Care Team (Late st Contact Info) Description 05/22/2025 Refill [facility] [address] [address] Shannon Shafer ARNP [address] [address] Social History Tobacco Use Types Packs/Day Years Used Date Smoking Tobacco: Former Cigarettes Alcohol Use Standard Drinks/Week Comments Not Currently 0 (1 standard drink = 0.6 oz pur e alcohol) Comments Unknown Sex and Gender Information Value Date Recorded Sex Assigned at Not on file Legal Sex Female 11:56 AM EDT Gender Identity Not on file Sexual Orientation Not on file documented as of this encounter Plan of Treatment Upcoming Encounters Date Type Department Care Team (Late st Contact Info) Description 10/21/2025 9:45 AM EST Office Visit [facility] [address] [address] Shannon Shafer ARNP [address] [address] documented as of this encounter Visit Diagnoses Not on filedocumented in this encounter Care Teams Printer'S Assistant Relationship Specialty Start Date End Date Gabino Hayward Jr. [address] [place] [address] [address] [place] [address] PCP - General 01/19/25 documented as of this encounter
--- OUTSIDE RECORDS SUMMARY | 2025-06-15 14:26 | XMS_ITS | Clinical Summary ---
Author Organization [facility] Address [address] [facility] [address] [place] [address] Phone Care Team Providers Care Health Spa Manager Name Role Phone Gabino Hayward Jr. Primary Care Provider [phone] Allergies No known active allergies Medications apixaban (Eliquis) 5 MG tablet Take 5 mg by mouth in the morning. Active acetaminophen (TYLENOL) 500 MG tablet Take by mouth every 6 (six) hours if needed for mild pain Active mirtazapine (REMERON) 45 MG tablet Take 45 mg by mouth every night Active Insulin Degludec (TRESIBA SC) Inject 36 Units/m2 under the skin Active famotidine (PEPCID) 20 MG tablet Take 20 mg by mouth in the morning and 20 mg in the evening. Active gabapentin (NEURONTIN) 300 MG capsule Take 300 mg by mouth in the morning and 300 mg in the evening and 300 mg before bedtime. Active ondansetron (ZOFRAN) 4 MG tablet Take 4 mg by mouth every 8 (eight) hours if needed for nausea or vomiting Active Evolocumab (Repatha) 140 MG/ML solution prefilled syringe Inject 140 mg under the skin every 14 (fourteen) days Active clopidogrel (PLAVIX) 75 MG tablet Take 75 mg by mouth 1 (one) time each day Active Empagliflozin (Jardiance) 10 MG tabletIndicatio ns:Stage 3b chronic kidney disease (HCC),Proteinur ia, not otherwise specified Take 10 mg by mouth 1 (one) time each day in the morning 30 tablet 11 5 01/20/20 26 Active Additional Information Patient not taking.Reported on 04/21/2025 lisinopril 20 MG tablet Take 1 tablet (20 mg total) by mouth 1 (one) time each day 30 tablet 5 5 08/16/20 25 Active dilTIAZem CD (CARDIZEM CD) 180 MG 24 hr capsule Take 1 capsule (180 mg total) by mouth 1 (one) time each day 90 capsule 3 5 Active furosemide (LASIX) 20 MG tabletIndicatio ns:Stage 3b chronic kidney disease (HCC),Hypertens ion Take 1 tablet (20 mg total) by mouth every other day 45 tablet 3 5 04/21/20 26 Active Active Problems Problem Noted Date Diagnosed Date Proteinuria, not otherwise specified 04/21/2025 Anemia in chronic kidney disease 01/19/2025 Hypertension 01/19/2025 Stage 3b chronic kidney disease 12/15/2024 Type 2 diabetes mellitus wit h diabetic chronic kidney disease 12/15/2024 Renal osteodystrophy 12/15/2024 Encounters Date Type Department Care Team Description 05/24/2025 Office Communication [facility] [address] [phone] Divya Tompkins 05/24/2025 Orders Only [facility] [address] [phone] Shannon Shafer ARNP Stage 3b chronic kidney disease (HCC); Hypertension 05/22/2025 Refill [facility] [address] [phone] Shannon Shafer ARNP 04/21/2025 9:45 AM EDT Office Visit [facility] [address] [phone] Shannon Shafer ARNP Stage 3b chronic kidney disease (HCC) (Primary Dx); Anemia in chronic kidney disease; Hypertension 04/02/2025 Orders Only [facility] [address] [phone] Shannon Shafer ARNP Stage 3b chronic kidney disease (HCC); Renal osteodystrophy; Anemia in chronic kidney disease; Hypertension; Proteinuria, not otherwise specified 03/15/2025 Refill [facility] [address] [phone] Shannon Shafer ARNP from Last 3 Months Family History Medical History Relation Comments Cancer Mother Relation Status Comments Mother Social History Tobacco Use Types Packs/Day Years Used Date Smoking Tobacco: Former Cigarettes Tobacco Cessation:Counseling Given: Not Answered Alcohol Use Standard Drinks/Week Comments Not Currently 0 (1 standard drink = 0.6 oz pur e alcohol) Comments Unknown Sex and Gender Information Value Date Recorded Sex Assigned at Not on file Legal Sex Female 11:56 AM EDT Gender Identity Not on file Sexual Orientation Not on file Last Filed Vital Signs Vital Sign Reading Time Taken Comments Blood Pressure 148/80 04/21/2025 10:19 AM EDT Pulse 51 04/21/2025 9:50 AM EDT Temperature - - Respiratory Rate - - Oxygen Saturation 100% 04/21/2025 9:50 AM EDT Inhaled Oxygen Concentration - - Weight 89.8 kg (198 lb) 04/21/2025 9:50 AM EDT Height - - Body Mass Index - - Plan of Treatment Upcoming Encounters Date Type Department Care Team (Late st Contact Info) Description 10/21/2025 9:45 AM EST Office Visit [facility] [address] [phone] Shannon Shafer ARNP [address] [address] Health Maintenance Due Date Last Done Comments Pneumococcal Vaccine: 50+ Years (1 of 2 - PCV) 1964 Diabetes: Ophthalmology Exam 12/10/2024 Diabetes: Pedal Pulse Checked 12/10/2024 Diabetes: Sensory Foot Exam 12/10/2024 Diabetes: Visual Foot Exam 12/10/2024 Diabetes: Hemoglobin A1C 12/20/2024 025, 09/22/2024 Influenza Vaccine (#1) 2025 Hepatitis B Vaccine Aged Out No longe r eligible based on patient's age to complete this topic Procedures Procedure Name Priority Date/Time Associated Diagnosis Comments VITAMIN D 25 HYDROXY Routine 05/04/2025 9:19 AM EDT Stage 3b chronic kidney disease (HCC) BASIC METABOLIC PANEL Routine 05/04/2025 9:18 AM EDT Stage 3b chronic kidney disease (HCC) Hypertension PTH, INTACT Routine 05/04/2025 9:17 AM EDT from Last 3 Months Results * Vitamin D 25 hydroxy (05/04/2025 9:19 AM EDT) Vitamin D, 25-OH, Total 31.2 30.0 - 100.0 ng/mL [facility] Comment: Vitamin D deficiency has been defined by the [place] of [employer] and an Endocrine Society practice guideline as a level of serum 25-OH vitamin D less than 20 ng/mL (1,2). The Endocrine Society went on to further define vitamin D insufficiency as a level between 21 and 29 ng/mL (2). 1. IOM ([place] of [employer]). 2010. Dietary reference intakes for calcium and D. [place]: The National Academies Press. 2. Salome MF, [place], Arminda OLIVEIRA, et al. Evaluation, treatment, and prevention of vitamin D deficiency: an Endocrine Society clinical practice guideline. JCEM. 2010; 96(7):1911-30. Blood Venous blood / Unknown 05/04/2025 9:19 AM EDT 05/04/[address] [facility] BLOOD ORDERABLES Final Result [facility] [address] [place] [address] * (ABNORMAL) Basic metabolic panel (05/04/2025 9:18 AM EDT) Glucose 114(H) 70 - 99 mg/dL [facility] BUN 25 8 - 27 mg/dL [facility] Creatinine 1.03(H) 0.57 - 1.00 mg/dL [facility] eGFR CKD-EPI CR 2020 55(L) >59 mL/min/1.7 3 [facility] BUN/Creatinine Ratio 24 12 - 28 [facility] Sodium 143 134 - 144 mmol/L [facility] Potassium 4.5 3.5 - 5.2 mmol/L [facility] Chloride 101 96 - 106 mmol/L [facility] Bicarbonate (CO2) 22 20 - 29 mmol/L [facility] Calcium 10.4(H) 8.7 - 10.3 mg/dL [facility] Blood Venous blood / Unknown 05/04/2025 9:18 AM EDT 05/04/[address] [facility] BLOOD ORDERABLES Final Result [facility] [place] [address] [place] [address] * PTH, Intact (05/04/2025 9:17 AM EDT) PTH 36 15 - 65 pg/mL [facility] 05/04/2025 9:17 AM EDT 05/04/2025 [facility] BLOOD ORDERABLES Final Result [facility] [place] [address] [place] [address] from Last 3 Months Insurance Medicare [facility] Care Teams Health Spa Manager Relationship Specialty Start Date End Date Gabino Hayward Jr. [facility] [address] [place] [address] PCP - General 01/19/25
--- OUTSIDE RECORDS SUMMARY | 2025-06-15 14:26 | XMS_ITS | Encounter Summary ---
Author Organization [facility] Address [address] [place] [address] Care Team Providers Care Embalmer Assistant Name Role Phone Finn Okeefe MD Primary Care Provider [phone] Encounter Details Date Type Department Care Team ([facility] st Contact Info) Description 06/09/2025 Telephone [facility] - [facility] [address] [facility] [address] [place] [address] Yudy Sutton MA Social History Tobacco Use Types Packs/Day Years [...] on file documented as of this encounter Progress Notes * Yeny Garcia - 06/15/2025 2:11 PM EDT Appointment scheduled with April Nicole on July at 1:10 PM. I spoke Rommel andmailed an appointment reminder. Rommel wants to know if she needs to bring her monitor with her to herappointment with April on 07/29/25. Please call her back and let her know. She can be reached ar [phone]. * Yudy Sutton MA - 06/10/2025 2:15 PM EDT Spoke with patient, she will unplug her monitor and is awaiting a call from scheduling. * Yudy Sutton MA - 06/09/2025 2:27 PM EDT Please schedule patient for ILR removal talk with LM/SL(not urgent). Her loop recorder has reached the end of battery life. documented in this encounter Plan of Treatment Upcoming Encounters Date Type Department Care Team (Late st Contact Info) Description 07/29/2025 1:10 PM EST Consult [facility] - [address] [facility] [address] [place] [address] April Nicole, MUSTAP[place] [address] [place] [address] [place] [address] documented as of this encounter Visit Diagnoses Not on filedocumented in this encounter Care Teams Embalmer Assistant Relationship Specialty Start Date End Date Finn Okeefe MD [address] [place] [address] PCP - General Internal Medicine 06/02/25 documented as of this encounter
[2025-07-08 12:03] VITALS: BP 158/70; PULSE 87; RESP 16; O2SAT 96; BMI 34.3
--- NOTE | 2025-07-08 12:36 | HO.ANESPROP2 ---
Documented by User: Kassy Olsen NP 07/20/25 08:53 HPI - Anesthesia Eval Consult details Narrative: 80yo F for L2-3 MicroLumbar discectomy, 07/22/25 s/p Left L2-3 Extra Foraminal Far Lateral Mild Lumbar Discectomy with Metrix tubes, 05/14/24, with GA-ETT 7 - no issues per pt report Covid 04/2025 with 4 days inpt at [facility], now resolved No CP/SOB with minimal housework. Activity limited by pain Cardiac optimized. Follows [facility] for: CAD s/p LUIS MIGUEL to RCA and circumflex 08/2024 (ok'd to hold plavix) PAF: Eliquis, rate control with diltiazem. Will start asa 81mg when eliquis hold starts HTN/HLD Follows [facility] for: Carotid Stenosis: R ICA occlusion, L ICA 1-49% PVD Follows [facility] for CKD 3. Baseline creat 1.2-1.4 Follows [facility] for dyspnea. Last office visit 11/2024 with inhaler rx. Pt denies dyspnea at this time DM: FBS ~85-100 CVA x 2 in 2021: Eliquis. No residual. Loop recorder in situ PONV: Slightly nausea . Good effect with intraop zofran GERD: controlled with famotadine QHS Multiple spine surgeries previously PMFSH Active Problems Active Problems: All Active Problems Lumbar disc herniation (Acute) Status post lumbar microdiscectomy (Acute) Back pain of lumbar region with sciatica (Acute) Past Medical History Medical History Hx of iron deficiency anemia (~06/2024) Implantable loop recorder present (05/2023) Thyroid nodule COVID (05/12/25) Glaucoma CKD (chronic kidney disease) On anticoagulant therapy History of CVA with residual deficit Carotid stenosis Gout JUSTINE (acute kidney injury) CAD (coronary artery disease) Cryptogenic stroke SVT (supraventricular tachycardia) Cardiomyopathy Mixed hyperlipidemia Stenosis of right carotid artery Paroxysmal atrial fibrillation Postoperative nausea Back pain Elevated cholesterol GERD (gastroesophageal reflux disease) Depression TIA (transient ischemic attack) CVA (cerebral vascular accident) HTN (hypertension) Diabetes Arthritis Family History Family history of problems with anesthesia: No Surgical History Surgical History Hx of spinal surgery (05/14/24) History of coronary artery stent placement (~08/2024) Hx of cardiac catheterization History of loop recorder Hx of cervical discectomy History of total replacement of both shoulder joints History of total bilateral knee replacement History of esophagogastroduodenoscopy (EGD) H/O colonoscopy Hx of cholecystectomy Hx of carpal tunnel repair Hx of section History of back surgery History of Problems with Anesthesia: Yes Social History Social History Household Members: Spouse Housing: House Are you a primary rn progressive care to a significant other at home: No Do you presently have visiting nurse or other home services: No Patient Tobacco Use Status: Former Tobacco user Tobacco use type: Cigarette Years Smoked: 3 Use of substances other than those prescribed or required for medical reasons: No Have you been hit, kicked, punched, or otherwise hurt by someone within the past year? If so, by whom?: No Are you DNR?: No Advance Directives: No Advance Directives Information Provided: Yes Advance Directives on File: No Meds Allergies Allergy/AdvReac Type Severity Reaction Status Date / Time exenatide (From Byetta) Allergy Intermediate Nausea Verified 07/08/25 12:03 metformin (From Glucophage) Allergy Intermediate Nausea Verified 07/08/25 12:03 rosuvastatin (From Crestor) Allergy Intermediate Nausea Verified 07/08/25 12:03 sertraline (From Zoloft) Allergy Intermediate Nausea Verified 07/08/25 12:03 simvastatin (From Zocor) Allergy Intermediate Nausea Verified 07/08/25 12:03 Home Medications ?Medication ?Instructions ?Recorded ?Confirmed ?Last Taken ?Type acetaminophen 500 mg tablet 500 mg PO QID PRN Pain 05/07/24 07/08/25 Unknown History apixaban 5 mg tablet (Eliquis) 5 mg PO BID 05/07/24 07/08/25 07/18/25 History Held on 07/22/25. Instructions: Resume on 07/25/25. You may resume Eliquis 3 days after surgery diltiazem HCl 180 mg 240 mg PO QAM 05/07/24 07/08/25 Unknown History capsule,extended release 24 hr evolocumab 140 mg/mL subcutaneous 140 mg subcut Q2W 05/07/24 07/07/25 Unknown History pen injector (tonyhany CaballeroHarinderdelvin) famotidine 20 mg tablet 20 mg PO BEDTIME PRN Acid Reflux 05/07/24 07/07/25 07/21/25 20:00 History insulin degludec 100 unit/mL (3 36 unit subcut QAM 05/07/24 07/07/25 05/14/24 History mL) subcutaneous pen (Tresiba 0830 FlexTouch U-100 insulin) latanoprost 0.005 % eye drops 1 drp ophthalmic (eye) BEDTIME 05/07/24 07/08/25 Unknown History lisinopril 40 mg tablet 40 mg PO DAILY 05/07/24 07/08/25 Unknown History mirtazapine 45 mg tablet 45 mg PO QPM 05/07/24 07/08/25 Unknown History ondansetron HCl 4 mg tablet 4 mg PO Q12H PRN Nausea 05/07/24 07/08/25 Unknown History clopidogrel 75 mg tablet 75 mg PO DAILY 07/07/25 07/07/25 07/12/25 History Held on 07/22/25. Instructions: Resume on 07/29/25. You may resume Plavix 1 week after surgery furosemide 20 mg tablet 20 mg PO Q OTHER DAY 07/07/25 07/07/25 Unknown History aspirin 81 mg tablet 81 mg PO DAILY 07/08/25 07/22/25 07/21/25 History carvedilol 3.125 mg tablet 3.125 mg PO BID 07/08/25 07/08/25 07/22/25 History docusate sodium 100 mg capsule 100 mg PO DAILY PRN Constipation 07/08/25 07/08/25 Unknown History (Colace) gabapentin 400 mg capsule 400 mg PO BID 07/08/25 07/08/25 Unknown History simethicone 80 mg chewable tablet 80 mg PO BEDTIME PRN Abdominal 07/08/25 07/08/25 Unknown History Discomfort Exam Height,Weight and Vital Signs: Height 5 ft 4 in Weight 90.718 kg Last Vital Signs Pulse 87 07/08/25 12:03 Resp 16 07/08/25 12:03 BP 158/70 H 07/08/25 12:03 Pulse Ox 96 07/08/25 12:03 O2 Del Method Room Air 07/08/25 12:03 Pertinent Lab Results Pertinent Lab Results: Narrative Narrative: EKG 04/2025 Sinus tachycardia , diltiazem increased ST and T wave abnormality, consider inferior ischemia When compared with ECG of 02-DEC-2024 10:47, ST now depressed in Inferior leads ST now depressed in Lateral leads T wave inversion now evident in Inferior leads Confirmed by MAGALIE TALLEY ([id number]) on 05/11/2025 8:04:48 PM Nuc Stress 11/2024 IMPRESSION: Normal Regadenoson stress test with nuclear imaging. No chest pain or EKG changes consistent with ischemia. Nuclear imaging revealed no significant perfusion defects after attenuation correction was applied. There is a normal TID ratio. Gated SPECT imaging was performed and revealed an LVEF of >70 %. ECHO 09/2024 ? Left?Ventricle: Left ventricle cavity size is normal. Wall thickness is normal. Systolic function is normal with an ejection fraction of 60-65%. There are no regional LV wall motion abnormalities. There is Grade I (mild) diastolic dysfunction. ? Left?Atrium: Left atrium cavity is mildly dilated. ? Right?Ventricle: Right ventricle cavity appears normal. Systolic function is normal. ? Right?Atrium: Right atrium cavity is normal. ? Aortic?Valve: There is mild regurgitation with a centrally directed jet. ? When compared to the prior echocardiogram from 03/22/2022, no significant change. ? Cardiac Cath 08/2024 Interventional Summary Mid RCA: IVUS guided successful PCI of the mid RCA with shockwave atherectomy using 2.5 mm X12 millimeter C2 plus IV L followed by 2.5 mm X 15 mm [place] LUIS MIGUEL postdilated with 3.0 mm X12 millimeter NC balloon. Proximal LCx: Successful PCI of the proximal LCx with shockwave atherectomy using 2.5 mm X12 millimeter C2 plus IV L followed by 2.5 mm X12 millimeter [place] LUIS MIGUEL postdilated with 3.0 mm X12 millimeter NC balloon. Interventional Recommendations Continue Eliquis for paroxysmal atrial fibrillation with multiple stroke in the past and Plavix 75 mg p.o. daily 1 year postintervention. Guideline directed medical management for coronary artery disease. Continue PCSK9 inhibitor and focus for Strict Diabetes Control. Monitor overnight and discharge tomorrow in the morning. Carotid US 03/2025 Summary: Right Side: Known occlusion of the Internal Carotid Artery. Antegrade flow in the Vertebral Artery. Multiphasic flow is seen in the Subclavian Artery. Left Side: 1-49% stenosis in the Internal Carotid Artery. Previous velocity was up to 142.7/30.1 cm/sec. Antegrade flow in the Vertebral Artery. Multiphasic flow is seen in the Subclavian Artery. Airway Mallampati Class: II TM Dist: >3cm Neck ROM: Limited (d/t msk tension) Partial: Upper Heart: RRR Lungs: CTAB Assessment and Plan Assessment Anesthesia Assessment: Anesthesia Plan Discussed and PAT Visit Final Anesthetic Review Family History of Problems with Anesthesia: No History of Problems with Anesthesia: Yes Documented by User: Matt Coreas MD 07/22/25 11:15 [facility] Past Medical History Medical History Hx of iron deficiency anemia (~06/2024) Implantable loop recorder present (05/2023) Thyroid nodule COVID (05/12/25) Glaucoma CKD (chronic kidney disease) On anticoagulant therapy History of CVA with residual deficit Carotid stenosis Gout JUSTINE (acute kidney injury) CAD (coronary artery disease) Cryptogenic stroke SVT (supraventricular tachycardia) Cardiomyopathy Mixed hyperlipidemia Stenosis of right carotid artery Paroxysmal atrial fibrillation Postoperative nausea Back pain Elevated cholesterol GERD (gastroesophageal reflux disease) Depression TIA (transient ischemic attack) CVA (cerebral vascular accident) HTN (hypertension) Diabetes Arthritis Surgical History Surgical History Hx of spinal surgery (05/14/24) History of coronary artery stent placement (~08/2024) Hx of cardiac catheterization History of loop recorder Hx of cervical discectomy History of total replacement of both shoulder joints History of total bilateral knee replacement History of esophagogastroduodenoscopy (EGD) H/O colonoscopy Hx of cholecystectomy Hx of carpal tunnel repair Hx of section History of back surgery Social History Social History Household Members: Spouse Housing: House Are you a primary rn progressive care to a significant other at home: No Do you presently have visiting nurse or other home services: No Patient Tobacco Use Status: Former Tobacco user Tobacco use type: Cigarette Years Smoked: 3 Use of substances other than those prescribed or required for medical reasons: No Have you been hit, kicked, punched, or otherwise hurt by someone within the past year? If so, by whom?: No Are you DNR?: No Advance Directives: No Advance Directives Information Provided: Yes Advance Directives on File: No Meds Allergies Allergy/AdvReac Type Severity Reaction Status Date / Time exenatide (From Byetta) Allergy Intermediate Nausea Verified 07/08/25 12:03 metformin (From Glucophage) Allergy Intermediate Nausea Verified 07/08/25 12:03 rosuvastatin (From Crestor) Allergy Intermediate Nausea Verified 07/08/25 12:03 sertraline (From Zoloft) Allergy Intermediate Nausea Verified 07/08/25 12:03 simvastatin (From Zocor) Allergy Intermediate Nausea Verified 07/08/25 12:03 Home Medications ?Medication ?Instructions ?Recorded ?Confirmed ?Last Taken ?Type acetaminophen 500 mg tablet 500 mg PO QID PRN Pain 05/07/24 07/08/25 Unknown History apixaban 5 mg tablet (Eliquis) 5 mg PO BID 05/07/24 07/08/25 07/18/25 History Held on 07/22/25. Instructions: Resume on 07/25/25. You may resume Eliquis 3 days after surgery diltiazem HCl 180 mg 240 mg PO QAM 05/07/24 07/08/25 Unknown History capsule,extended release 24 hr evolocumab 140 mg/mL subcutaneous 140 mg subcut Q2W 05/07/24 07/07/25 Unknown History pen injector (Repatha SureClick) famotidine 20 mg tablet 20 mg PO BEDTIME PRN Acid Reflux 05/07/24 07/07/25 07/21/25 20:00 History insulin degludec 100 unit/mL (3 36 unit subcut QAM 05/07/24 07/07/25 05/14/24 History mL) subcutaneous pen (Tresiba 0830 FlexTouch U-100 insulin) latanoprost 0.005 % eye drops 1 drp ophthalmic (eye) BEDTIME 05/07/24 07/08/25 Unknown History lisinopril 40 mg tablet 40 mg PO DAILY 05/07/24 07/08/25 Unknown History mirtazapine 45 mg tablet 45 mg PO QPM 05/07/24 07/08/25 Unknown History ondansetron HCl 4 mg tablet 4 mg PO Q12H PRN Nausea 05/07/24 07/08/25 Unknown History clopidogrel 75 mg tablet 75 mg PO DAILY 07/07/25 07/07/25 07/12/25 History Held on 07/22/25. Instructions: Resume on 07/29/25. You may resume Plavix 1 week after surgery furosemide 20 mg tablet 20 mg PO Q OTHER DAY 07/07/25 07/07/25 Unknown History aspirin 81 mg tablet 81 mg PO DAILY 07/08/25 07/22/25 07/21/25 History carvedilol 3.125 mg tablet 3.125 mg PO BID 07/08/25 07/08/25 07/22/25 History docusate sodium 100 mg capsule 100 mg PO DAILY PRN Constipation 07/08/25 07/08/25 Unknown History (Colace) gabapentin 400 mg capsule 400 mg PO BID 07/08/25 07/08/25 Unknown History simethicone 80 mg chewable tablet 80 mg PO BEDTIME PRN Abdominal 07/08/25 07/08/25 Unknown History Discomfort Exam Exam Date and Time: 07/23/25 Assessment and Plan Assessment Anesthesia Assessment: Chart Reviewed Final Anesthetic Review NPO: Yes ASA Class: III Final Preanesthetic Review: No Changes in Pt Med Stat, Meds/Allgs Chart Reviewed, Consent Obtained/Reviewed and Anes Risks/Benef Reviewed Patient Risk: Intermediate Procedure Risk: Low Anesthetic Plan Anesthetic Plan: GA Disposition: Standard PACU
[2025-07-22] VITALS (8 sets, daily range): BP systolic 174–201; BP diastolic 71–90; PULSE 82–99; RESP 14–20; TEMP 36.6–37; O2SAT 93–99; BMI 34.6
--- NOTE | ~2025-07-22 | FL_ITS ---
EXAMINATION: XR FLUOROSCOPY WITH IMAGES CLINICAL INFORMATION: L2-3 discectomy COMPARISON: None available. TECHNIQUE: Fluoroscopy time: 0.03 minutes DAP: 1.3 mGycm2 Images: 1 FINDINGS: Fluoroscopy in the operating room. Surgical enhancement projected posterior to the L2 vertebral body. Spinal fusion hardware at L4-5. FL/FL guidance in OR IMPRESSION: Fluoroscopy the operating room. See surgical report for additional information. Electronically signed by: Jeb Mcnamara MD 07/23/2025 01:47 PM [facility]
--- NOTE | 2025-07-22 09:47 | MHC.SHP ---
Pre-Procedural Eval Section A - 24 Hr Update-Section A only Date of Service: 07/22/25 The patient is an INPATIENT: No Section B - Complete if H&P > 30 days Chief Complaint: Other intervertebral disc displacement, lumbar Details of Present Illness: Right leg pain Allergies: Allergies Allergy/AdvReac Type Severity Reaction Status Date / Time exenatide (From Byetta) Allergy Intermediate Nausea Verified 07/08/25 12:03 metformin (From Glucophage) Allergy Intermediate Nausea Verified 07/08/25 12:03 rosuvastatin (From Crestor) Allergy Intermediate Nausea Verified 07/08/25 12:03 sertraline (From Zoloft) Allergy Intermediate Nausea Verified 07/08/25 12:03 simvastatin (From Zocor) Allergy Intermediate Nausea Verified 07/08/25 12:03 Review of Systems Sugical H&P ROS: Negative: Constitution, Cardiovascular, Respiratory, Neurological, Psychiatric, Hem-Onc, Allergic/Immunologic, Gastrointestinal, Genitourinary, Musculoskeletal, Integumentary, Endocrine and Eyes/Ears/Nose/Throat Exam Surgical H&P Exam: Normal: HEENT, Normal: Heart, Normal: Lungs, Normal: Extremities, Normal: Abdomen, Normal: Skin and Normal: Neurological (Awake, alert) Plan Diagnosis/Plan: Unchanged I have reviewed the history and physical and performed a pertinent physical examination on my patient. No changes have occurred unless specified. Right L2-3 microdiskectomy Time Spent With Patient Time: Total time managing care of this patient today __5__ minutes.
[2025-07-22] MEDS: Lactated Ringers 1,000 ML 100 ML IVCONT (09:55)
[2025-07-22 10:01] LABS: Glucose, Whole Blood 103 mg/dL (60-115)
--- NOTE | 2025-07-22 10:59 | PM.DS ---
DS: Providers Provider Date of Service: 07/22/25 <MARIA ALEJANDRA Olson - Last Filed: 07/22/25 11:00> Date of discharge: 07/22/25 <MARIA ALEJANDRA Olson - Last Filed: 07/22/25 11:00> Primary care physician: Cm Magallanes MD <MARIA ALEJANDRA Olson - Last Filed: 07/22/25 11:00> Admitting clinician: Farshad Tucker <MARIA ALEJANDRA Olson - Last Filed: 07/22/25 11:00> DS: Diagnosis Discharge Diagnosis (1) Lumbar disc herniation: Status: Acute <MARIA ALEJANDRA Olson - Last Filed: 07/22/25 11:00> DS: Summary Time Attestation Discharge Coordination Time (in mins): 17 <MARIA ALEJANDRA Arzate - Last Filed: 07/22/25 13:21> Quality: Safe Use of Opioids Does Pt have an Active Cancer Diagnosis on the Problem List?: No <MARIA ALEJANDRA Arzate - Last Filed: 07/22/25 13:21> Quality: Stroke Does the patient have a stroke diagnosis?: No <MARIA ALEJANDRA Arzate - Last Filed: 07/22/25 13:21> Physical Exam Vital Signs: Vital Signs: Last Vital Signs Temp 98.6 F 07/22/25 10:21 Pulse 96 07/22/25 10:21 Resp 20 07/22/25 10:21 BP 174/71 H 07/22/25 10:35 Pulse Ox 94 07/22/25 10:21 O2 Del Method Room Air 07/22/25 10:21 BMI result Body Mass Index 34.6 <MARIA ALEJANDRA Olson - Last Filed: 07/22/25 11:00> DS: Data Data Completed and Pending Labs on day of discharge: Laboratory Results - last 24 hr 07/22/25 09:58 POC Glucose 103 <MARIA ALEJANDRA Olson - Last Filed: 07/22/25 11:00> Discharge Plan Discharge Patient Disposition: Home, Self-Care <MARIA ALEJANDRA Olson - Last Filed: 07/22/25 11:00> Referrals: Cm Magallanes MD [Primary Care Provider, Medical] - 1 Week <MARIA ALEJANDRA Olson - Last Filed: 07/22/25 11:00> Discharge Medications: New oxycodone 5 mg tablet 5 mg PO Q6H PRN (Reason: pain) Qty: 20 0RF Rx Instructions: Partial Fill upon patient request. Continued furosemide 20 mg tablet 20 mg PO Q OTHER DAY gabapentin 400 mg capsule 400 mg PO BID carvedilol 3.125 mg tablet 3.125 mg PO BID docusate sodium [Colace] 100 mg Capsule 100 mg PO DAILY PRN (Reason: Constipation) simethicone 80 mg Tablet,Chewable 80 mg PO BEDTIME PRN (Reason: Abdominal Discomfort) aspirin 81 mg Tablet 81 mg PO DAILY latanoprost 0.005 % drops 1 drp ophthalmic (eye) BEDTIME diltiazem HCl 180 mg capsule,extended release 24hr 240 mg PO QAM ondansetron HCl 4 mg tablet 4 mg PO Q12H PRN (Reason: Nausea) acetaminophen 500 mg Tablet 500 mg PO QID PRN (Reason: Pain) famotidine 20 mg Tablet 20 mg PO BEDTIME PRN (Reason: Acid Reflux) mirtazapine 45 mg tablet 45 mg PO QPM lisinopril 40 mg tablet 40 mg PO DAILY insulin degludec [Tresiba FlexTouch U-100] 100 unit/mL (3 mL) insulin pen 36 unit SUBCUT QAM Patient Comments: took only 17 units Repatha SureClick 140 mg/mL pen injector 140 mg subcut Q2W Held clopidogrel 75 mg tablet 75 mg PO DAILY Hold Instructions: Resume on 07/29/25. You may resume Plavix 1 week after surgery Eliquis 5 mg tablet 5 mg PO BID Hold Instructions: Resume on 07/25/25. You may resume Eliquis 3 days after surgery <MARIA ALEJANDRA Olson - Last Filed: 07/22/25 11:00> Discharge Orders: Discharge Order (Routine); Ordered 07/22/25 Ordered By: Royer Dumont <MARIA ALEJANDRA Olson - Last Filed: 07/22/25 11:00> Diet: Advance to usual diet <MARIA ALEJANDRA Olson - Last Filed: 07/22/25 11:00> Advance to usual diet <MARIA ALEJANDRA Arzate Last Filed: 07/22/25 13:21> Activity on Discharge: As tolerated <MARIA ALEJANDRA Olson Last Filed: 07/22/25 11:00> As tolerated <MARIA ALEJANDRA Arzate - Last Filed: 07/22/25 13:21> Activity Restrictions/Additional Instructions: After your spinal surgery we ask you to observe the following restrictions/guidelines: Activity: It is normal to feel some discomfort as you increase your activity, but that will improve with time. We ask you avoid heavy lifting or acitivities that cause pain. As a general rule, 8lbs is a safe limit for lifting right after surgery. Walk as much as you feel comfortable but not to exhaustion. You will feel extra tired the first few days after surgery. Stay well hydrated. It is OK to walk up and down stairs You may return to driving when you are off narcotics (such as vicodin, oxycodone, dilaudid, etc), and you are back to normal functional capacity. If you have any concerns please check with office before driving. Return to work is specific to each patient and each surgery, so please speak with your doctor/PA at first follow up. Please bring paperwork such as FMLA at that time if you need it filled out. Medications: You may resume Eliquis 3 days after surgery and Plavix 1 week after surgery. For optimum pain control, it is best to start with a combination of 500 mg of Tylenol every 4 hours with 600 mg of Motrin every 8 hours, and use narcotics as needed in between for breakthrough pain. We will give you a short supply of narcotics after surgery (usually one weeks worth). If you need more please call the office but do not use more than prescribed. You will need to give our office 48 hours notice if you need narcotics refilled and we do not fill narcotics on weekends or evenings. If you are on a narcotic, it is a good idea to take a stool softener such as colace or senna to avoid constipation If you take blood thinner such as aspirin, Plavix, Coumadin, Effient, Eliquis etc for conditions such as Afib, DVT, Pulmonary embolus, coronary disease, stents etc please speak with your surgeon about specific details as to when you can resume these medications. Follow up: Please call the office, , after surgery to arrange a 3 week follow up for wound check. Wound Care: You may remove your dressing on the first day after surgery. ?You may ?leave open to air. Please do not remove the steri strips underneath. they will fall off on their own in one week. IT IS NORMAL FOR THE WOUND TO OOZE OR BE BLOODY FOR A FEW DAYS AFTER SURGERY. ?IF THIS HAPPENS JUST PLACE NEW DRESSING OVER IT TO AVOID STAINING CLOTHES. You may shower on post op day # 1 We ask that you do not let the water soak the wound. If it does get wet, just towel dry lightly. Please do not scrub your incision or place any type of chemical/ointment on the wound. No tub baths, pools or jacuzzis for one month. If you have any leaking or redness from your wound, or fevers, please call office <MARIA ALEJANDRA Olson - Last Filed: 07/22/25 11:00> Print Language: Surinamese <MARIA ALEJANDRA Olson - Last Filed: 07/22/25 11:00>
[2025-07-22] MEDS: Albuterol Sulfate (0.083%) 2.5 MG/3 ML VIAL.NEB INHALE (11:08)
--- NOTE | 2025-07-22 13:14 | P.OP_ITS ---
Operative Note Operative Note Date of Service: 07/22/25 Narrative: Preoperative diagnosis: Right lumbar radiculopathy due to disc herniation Postoperative diagnosis: Same Procedure: Lumbar laminotomy with microscope Surgeon: Farshad Tucker MD, PhD [employer] Machinist: andrea Norris This 80-year-old female presented with a right lumbar radiculopathy. She is status post L4-5 lumbar fusion. An MRI of April 2025 shows a large disc herniation at L2-3 medial from the L3 nerve root. The patient was offered a l decompression to decompress the nerve root. The procedure complications were explained. The patient was consented. The patient was brought to the operating room and endotracheally intubated. The patient was turned in a prone position on the Dayday frame. Prepping and draping was done followed by time-out. A mid lumbar incision was made followed by release of the paravertebral muscles on the right side to expose the L2-3 interspace. An intraoperative x-rays obtained to confirm the correct level. The microscope was brought in. A 3 laminotomy was do ne followed by opening of the flavum ligament. Severely hypertrophied flavum ligament was resected, which immediately decompress the thecal sac. The L3 nerve root was identified and retracted medially to expose the L2-3 disc space. I maneuvered a short a long nerve hook under the thecal sac to identify the herniated disc. However did not feel any resistance and no herniated disc was found. I decided to extend the laminotomy laterally to include a partial facetectomy to give the L3 nerve root maximum space laterally. This resulted in an excellent decompression of the L3 nerve root. Hemostasis was done. The microscope was removed. Marcaine was injected intramuscularly.The incision was closed in two layers. Steri-Strips used to approximate the incision. An op- site were taken there was used to cover the incision. All sponge and needle counts were correct. Patient was extubated and transported in stable condition to recovery room. this procedure was done with the aid of a physician assistant attorney general who performed the initial exposure until the microscope was brought in and performed the closure of the incision. Anesthesia: General Blood loss: 40 mL Complications: None Specimen: None Surgical time: 60 minutes Disposition: Discharge home
== END 2025-07-22 14:30 | disposition home or self-care (01) ==
PROVIDERS: PCP Internal Medicine; Visit Provider Neurological Surgery
PROC: (CPT 63030; principal; 2025-07-22 12:30)
DX: M51.16 Intervertebral disc disorders with radiculopathy, lumbar region (principal); M51.26 Other intervertebral disc displacement, lumbar region; Z98.1 Arthrodesis status; I25.10 Atherosclerotic heart disease of native coronary artery without angina pectoris; I65.21 Occlusion and stenosis of right carotid artery; Z95.5 Presence of coronary angioplasty implant and graft; I10 Essential (primary) hypertension; E78.2 Mixed hyperlipidemia; I42.9 Cardiomyopathy, unspecified; E11.9 Type 2 diabetes mellitus without complications; F32.A Depression, unspecified; I48.0 Paroxysmal atrial fibrillation; Z79.01 Long term (current) use of anticoagulants; Z86.73 Personal history of transient ischemic attack (TIA), and cerebral infarction without residual deficits; Z88.8 Allergy status to other drugs, medicaments and biological substances; Z87.891 Personal history of nicotine dependence; Z98.890 Other specified postprocedural states
CPT/HCPCS: 63030; 82947; 94640; J0131; J0690; J1100; J2003; J2250; J2371; J2405; J2704; J2765; J3010

== ENCOUNTER → 2025-07-22 09:24 | Outpatient (BNV) | payer MEDICARE, OTHER, SELFPAY | PROVIDERS: PCP Internal Medicine; Visit Provider Neurological Surgery | DX: M51.26 Other intervertebral disc displacement, lumbar region (principal) | CPT/HCPCS: 63047; 99499 ==

== ENCOUNTER 2025-08-11 08:22 | Outpatient (REF) | payer MEDICARE, OTHER, SELFPAY ==
--- OUTSIDE RECORDS SUMMARY | 2024-07-23 09:45 | XMS_ITS ---
Author Organization [facility], [place] Address [address] [facility] [address] [place] [address] Care Team Providers Care Paper Cup Machine Operator Name Role Phone Migration, Provider Unavailable Unavailable REASON FOR VISIT Follow-up Appt Encounters Encounter Location Date Provider Diagnosis [facility], [address] [place] [phone] 07/23/2024 Provider Migration Plan Of Treatment No Information Progress Notes * SINA HOBBSDOB:[birth year] (80 yo F)Acc No.[id number]:07/23/2024 Progress Notes Patient: SINA HONG Provider: Xavier Yañez :1945 A ge:79 Y S ex:Female Date:07/23/2024 Address:[address] [place], [place] [phone] Subjective: * Chief Complaints: * F ollow-up Appt * Ocular Surgical History: Objective: Vision Examination: * Electronic signature of Prov ider Migration on 08/13/2025 at 08:25 AM EST Sign off status: Pending * Provider: Xavier decker Migration Date: 09/23/2023 Generated for Armond hudson/Lucina/eTbrycesmitting on: 10/14/2024 08:25 AM EST
--- OUTSIDE RECORDS SUMMARY | 2024-08-25 05:30 | XMS_ITS ---
Author Organization [facility], [place] Address [address] [facility] [address] [place] [address] Care Team Providers Care Medical Collector Name Role Phone Migration, Provider Unavailable Unavailable REASON FOR VISIT Follow-up Appt Encounters Encounter Location Date Provider Diagnosis [facility], [address] [place] [address] 08/25/2024 Provider Migration Plan Of Treatment No Information Progress Notes * SINA HOBBSDOB:[birth year] (80 yo F)Acc No.[id number]:08/25/2024 Progress Notes Patient: SINA HONG Provider: Xavier Yañez :1945 A ge:79 Y S ex:Female Date:08/25/2024 Address:[address] [place], [place] [phone] Subjective: * Chief Complaints: * F ollow-up Appt * Ocular Surgical History: Objective: Vision Examination: * Electronic signature of Prov ider Migration on 08/13/2025 at 08:24 AM EST Sign off status: Pending * Provider: Xavier decker Migration Date: 0 08/25/2024 Generated for Armond hudson/Lucina/eTbrycesmitting on: 10/14/2024 08:24 AM EST
--- OUTSIDE RECORDS SUMMARY | 2024-09-01 10:30 | XMS_ITS ---
Author Organization [facility], [place] Address [address] [facility] [address] [place] [address] Care Team Providers Care Hand Brush Filler Name Role Phone Migration, Provider Unavailable Unavailable REASON FOR VISIT Follow-up Appt Encounters Encounter Location Date Provider Diagnosis [facility], [address] [place] [phone] 09/01/2024 Provider Migration Plan Of Treatment No Information Progress Notes * SINA HOBBSDOB:[birth year] (80 yo F)Acc No.[id number]:09/01/2024 Progress Notes Patient: SINA HONG Provider: Xavier Yañez :1945 A ge:79 Y S ex:Female Date:09/01/2024 Address:[address] [place], [place] [phone] Subjective: * Chief Complaints: * F ollow-up Appt * Ocular Surgical History: Objective: Vision Examination: * Electronic signature of Prov ider Migration on 08/13/2025 at 08:24 AM EST Sign off status: Pending * Provider: Xavier decker Migration Date: 0 09/01/2024 Generated for Armond hudson/Lucina/eTbrycesmitting on: 10/14/2024 08:24 AM EST
--- OUTSIDE RECORDS SUMMARY | 2024-09-01 10:30 | XMS_ITS ---
Author Organization [facility], [place] Address [address] [facility] [address] [place] [address] Care Team Providers Care Hardener Helper Name Role Phone Gabino Hayward Unavailable [phone] REASON FOR VISIT Follow-up Appt Encounters Encounter Location Date Provider Diagnosis [facility], [address] [place] [address] 09/01/2024 Gabino Hayward Plan Of Treatment No Information Progress Notes * SINA HOBBSDOB:[birth year] (80 yo F)Acc No.[id number]:09/01/2024 Progress Notes Patient: SINA HONG Provider: Raven BESS :1945 A ge:79 Y S ex:Female Date:09/01/2024 Address:[address] [place] [address] Subjective: * Chief Complaints: * F ollow-up Appt * Ocular Surgical History: Objective: Vision Examination: * Electronic signature of Boo Hayward PA-C on 08/13/2025 at 08:26 AM EST Sign off status: Pending * Provider: Raven BESS Date: 0 09/01/2024 Generated for Armond hudson/Lucina/eTransmitting on: 10/14/2024 08:26 AM EST
--- OUTSIDE RECORDS SUMMARY | 2024-09-22 05:30 | XMS_ITS ---
Author Organization [facility], [place] Address [address] [facility] [address] [place] [address] Care Team Providers Care Pension Adviser Name Role Phone Migration, Provider Unavailable Unavailable REASON FOR VISIT Sick Visit Encounters Encounter Location Date Provider Diagnosis [facility], [address] [place] [phone] 09/22/2024 Provider Migration Plan Of Treatment No Information Progress Notes * SINA HOBBSDOB:[birth year] (80 yo F)Acc No.[id number]:09/22/2024 Progress Notes Patient: SINA HONG Provider: Xavier Yañez :1945 A ge:79 Y S ex:Female Date:09/22/2024 Address:[address] [place], [place] [phone] Subjective: * Chief Complaints: * S ick Visit * Ocular Surgical History: Objective: Vision Examination: * Electronic signature of Prov ider Migration on 08/13/2025 at 08:25 AM EST Sign off status: Pending * Provider: Xavier decker Migration Date: 0 09/22/2024 Generated for Armond hudson/Lucina/eTbrycesmitting on: 1 10/14/2024 08:25 AM EST
--- OUTSIDE RECORDS SUMMARY | 2024-10-06 09:15 | XMS_ITS ---
Author Organization [facility], [place] Address [address] [facility] [address] [place] [address] Care Team Providers Care Science Teacher Name Role Phone Migration, Provider Unavailable Unavailable REASON FOR VISIT Follow-up Appt Encounters Encounter Location Date Provider Diagnosis [facility], [address] [place] [phone] 10/06/2024 Provider Migration Plan Of Treatment No Information Progress Notes * SINA HOBBSDOB:[birth year] (80 yo F)Acc No.[id number]:10/06/2024 Progress Notes Patient: SINA HONG Provider: Xavier Yañez :1945 A ge:79 Y S ex:Female Date:10/06/2024 Address:[address] [place], [place] [phone] Subjective: * Chief Complaints: * F ollow-up Appt * Ocular Surgical History: Objective: Vision Examination: * Electronic signature of Prov ider Migration on 08/13/2025 at 08:25 AM EST Sign off status: Pending * Provider: Xavier decker Migration Date: 0 10/06/2024 Generated for Armond hudson/Lucina/eTbrycesmitting on: 1 10/14/2024 08:25 AM EST
--- OUTSIDE RECORDS SUMMARY | 2024-10-06 09:15 | XMS_ITS ---
Author Organization [facility], [place] Address [address] [facility] [address] [place] [address] Care Team Providers Care Application Support Name Role Phone Gabino Hayward Unavailable [phone] REASON FOR VISIT Follow-up Appt Encounters Encounter Location Date Provider Diagnosis [facility], [address] [place] [phone] 10/06/2024 Gabino Hayward Plan Of Treatment No Information Progress Notes * SINA HOBBSDOB:[birth year] (80 yo F)Acc No.[id number]:10/06/2024 Progress Notes Patient: SINA HONG Provider: Raven BESS :1945 A ge:79 Y S ex:Female Date:10/06/2024 Address:[address] [place], [place] [phone] Subjective: * Chief Complaints: * F ollow-up Appt * Ocular Surgical History: Objective: Vision Examination: * Electronic signature of Boo Hayward PA-C on 08/13/2025 at 08:26 AM EST Sign off status: Pending * Provider: Raven BESS Date: 0 10/06/2024 Generated for Armond hudson/Lucina/eTransmitting on: 1 10/14/2024 08:26 AM EST
--- OUTSIDE RECORDS SUMMARY | 2024-10-09 04:30 | XMS_ITS ---
Author Organization [facility], [place] Address [address] [facility] [address] [place] [address] Care Team Providers Care First Responder Name Role Phone Gabino Hayward Unavailable [phone] REASON FOR VISIT Follow-up Appt Encounters Encounter Location Date Provider Diagnosis [facility], [address] [place] [phone] 10/09/2024 Gabino Hayward Plan Of Treatment No Information Progress Notes * SINA HOBBSDOB:[birth year] (80 yo F)Acc No.[id number]:10/09/2024 Progress Notes Patient: SINA HONG Provider: Raven BESS :1945 A ge:79 Y S ex:Female Date:10/09/2024 Address:[address] [place], [place] [phone] Subjective: * Chief Complaints: * F ollow-up Appt * Ocular Surgical History: Objective: Vision Examination: * Electronic signature of Boo Hayward PA-C on 08/13/2025 at 08:24 AM EST Sign off status: Pending * Provider: Raven BESS Date: 0 10/09/2024 Generated for Armond hudson/Lucina/eTransmitting on: 1 10/14/2024 08:24 AM EST
--- OUTSIDE RECORDS SUMMARY | 2024-12-02 05:00 | XMS_ITS ---
Author Organization [facility], [place] Address [address] [facility] [address] [place] [address] Care Team Providers Care Advanced Developer Name Role Phone Gabino Hayward Unavailable [phone] REASON FOR VISIT Follow-up Appt Encounters Encounter Location Date Provider Diagnosis [facility], [address] [place] [phone] 12/02/2024 Gabino Hayward Plan Of Treatment No Information Progress Notes * SINA HOBBSDOB:[birth year] (80 yo F)Acc No.[id number]:12/02/2024 Progress Notes Patient: SINA HONG Provider: Raven BESS :1945 A ge:79 Y S ex:Female Date:12/02/2024 Address:[address] [place], [place] [phone] Subjective: * Chief Complaints: * F ollow-up Appt * Ocular Surgical History: Objective: Vision Examination: * Electronic signature of Boo Hayward PA-C on 08/13/2025 at 08:25 AM EST Sign off status: Pending * Provider: Raven BESS Date: 0 12/02/2024 Generated for Armond hudson/Lucina/eTransmitting on: 1 10/14/2024 08:25 AM EST
--- OUTSIDE RECORDS SUMMARY | 2024-12-09 10:00 | XMS_ITS ---
Author Organization [facility], [place] Address [address] [facility] [address] [place] [address] Care Team Providers Care Inside Finisher Name Role Phone Gabino Hayward Unavailable [phone] REASON FOR VISIT Follow-up Appt Encounters Encounter Location Date Provider Diagnosis [facility], [address] [place] [phone] 12/09/2024 Gabino Hayward Plan Of Treatment No Information Progress Notes * SINA HOBBSDOB:[birth year] (80 yo F)Acc No.[id number]:12/09/2024 Progress Notes Patient: SINA HONG Provider: Raven BESS :1945 A ge:79 Y S ex:Female Date:12/09/2024 Address:[address] [place], [place] [phone] Subjective: * Chief Complaints: * F ollow-up Appt * Ocular Surgical History: Objective: Vision Examination: * Electronic signature of Boo Hayward PA-C on 08/13/2025 at 08:26 AM EST Sign off status: Pending * Provider: Raven BESS Date: 0 12/09/2024 Generated for Armond hudson/Lucina/eTransmitting on: 1 10/14/2024 08:26 AM EST
--- OUTSIDE RECORDS SUMMARY | 2025-05-19 08:30 | XMS_ITS ---
Author Organization [facility] [address] Address [address] [place] [address] Care Team Providers Care Conference Organizer Name Role Phone Criss Churchill Unavailable [phone] Encounters Encounter Location Date Provider Diagnosis [facility] [address] [place] [address] 05/19/2025 Criss Churchill Plan Of Treatment Next Appt Details Provider Name:Criss dumont, 08/24/2025 11:00:00 AM, [address], [address], [place], [address], Progress Notes * Starr BRAXTONDOB:[birth year] (80 yo F)Acc No.[id number]:05/19/2025 Progress Notes Patient: Starr Gaffney Provider: Kimberly Churchill PA-C :1945 A ge:80 Y S ex:Female Date:05/19/2025 Address:[address] [place], [place] Care Plan Details* * Electronic signature of Zita Churchill PA-C on 08/13/2025 at 08:24 AM EST Sign off status: Pending * Provider: Kimberly Churchill PA-C Date: Generated for Armond hudson/Falog/eTransmitting on: 10/14/2024 08:24 AM EST
--- OUTSIDE RECORDS SUMMARY | 2025-06-14 06:00 | XMS_ITS ---
Author Organization [facility] Address [address] [place] [address] Care Team Providers Care Side Door Man Name Role Phone Criss Churchill Unavailable [phone] LULMATIAS ESCOBAR Unavailable [phone] REASON FOR VISIT pt presents for nurse visit. bilateral ear lavage completed. pt tolerated well Medications Medication SIG (Take, Route, Frequency, Duration) Notes Start Date End Date Status Furosemide 20 MG Tablet 1 tablet Orally every other day Active Lisinopril 40 MG Tablet 1 tablet Orally Once a day; Duration: 90 days Active Repatha SureClick 140 MG/ML Solution Auto-injector INJECT 1 ML INTO THE SKIN EVERY 14 DAYS Subcutaneous every 14 days; Duration: 84 days Active Carvedilol 3.125 MG Tablet 1 tablet with food Orally Twice a day Active Meclizine HCl 25 MG Tablet 1 tablet as needed Orally every 12 hrs; Duration: 30 days As needed 06/08/2025 Active predniSONE 5 MG Tablet 3 tablets once a day for 4 days, 2 tablets once a day for 4 days, 1 tablet once a day for 4 days Orally; Duration: 12 days 04/28/2025 Active Gabapentin 400 MG Capsule TAKE 1 CAPSULE BY MOUTH TWICE A DAY; Duration: 30 Active Tresiba FlexTouch 100 UNIT/ML Solution Pen-injector 36 units Subcutaneous daily; Duration: 30 days 05/21/2025 Active Ondansetron HCl 4 MG Tablet TAKE 1 TABLET BY MOUTH EVERY 12 HOURS NEEDED; Duration: 10 Active oxyCODONE HCl 5 MG Tablet 1 tablet as needed Orally twice a day; Duration: 10 days As needed Partial Fill upon Patient Request 05/11/2025 Active traMADol HCl 50 MG Tablet 1 tablet as needed Orally Once a day; Duration: 7 days 04/08/2025 Active tiZANidine HCl 2 MG Tablet 1 tablet at bedtime as needed Orally Once a day; Duration: 30 days 04/15/2025 Active Amoxicillin-Pot Clavulanate 500-125 MG Tablet 1 tablet Orally every 12 hrs; Duration: 5 days 04/15/2025 Active Latanoprost 0.005 % Solution 1 drop in both eyes Ophthalmic Once a day; Duration: 25 days Active Allopurinol 100 MG Tablet 1 tablet Orally Once a day; Duration: 30 days 04/08/2025 Active dilTIAZem HCl ER 240 MG Tablet Extended Release 24 Hour 1 tablet Orally Once a day 03/04/2025 Active Tresiba 100 UNIT/ML Solution as directed Subcutaneous daily 36U 03/04/2025 Active Mirtazapine 45 MG Tablet 1 tablet at bedtime Orally Once a day Active Clopidogrel Bisulfate 75 MG Tablet 1 tablet Orally Once a day; Duration: 90 days Active Eliquis 5 MG Tablet as directed Orally twice a day 03/04/2025 Active Plavix 75 MG Tablet 1 tablet Orally Once a day Active Pepcid Active Acetaminophen 500 MG Capsule 1 capsule as needed Orally every 12 hours Active Encounters Encounter Location Date Provider Diagnosis [facility] [address] [place] [address] 06/14/2025 MATIAS TOWNSEND Ear fullness, left H93.8X2 and Ear fullness, right H93.8X1 Assessments Encounter Date Diagnosis (ICD Code) Assessment Notes Treatment Notes Treatment Clinical Notes Section Notes 06/14/2025 Ear fullness, left (ICD-10 - H93.8X2) 06/14/2025 Ear fullness, right (ICD-10 - H93.8X1) Plan Of Treatment Pending Test Test Name Order Date [facility]PC Ear Lavage 06/14/2025 Next Appt Details Provider Name:Criss dumont, 08/24/2025 11:00:00 AM, [address] [place] [address], [id number], Progress Notes * Starr BRAXTONDOB:[birth year] (80 yo F)Acc No.[id number]:06/14/2025 Progress Note Patient: Starr Gaffney Provider: Gloria TOWNSEND NP :1945 A ge:80 Y S ex:Female Date:06/14/2025 [facility], [facility] Subjective: * Chief Complaints: * P t presents for nurse visit. bilateral ear lavage completed. pt tolerated well * Medications: T akingCarvedilol 3.125 MG Tablet 1 tablet with food Orally Twice a day Furosemide 20 MG Tablet 1 tablet Orally every other day Plavix 75 MG Tablet 1 tablet Orally Once a day Pepcid Acetaminophen 500 MG Capsule 1 capsule as needed Orally every 12 hours dilTIAZem HCl ER 240 MG Tablet Extended Release 24 Hour 1 tablet Orally Once a day Tresiba 100 UNIT/ML Solution as directed Subcutaneous daily 36UEliquis 5 MG Tablet as directed Orally twice a day Mirtazapine 45 MG Tablet 1 tablet at bedtime Orally Once a day Clopidogrel Bisulfate 75 MG Tablet 1 tablet Orally Once a day Latanoprost 0.005 % Solution 1 drop in both eyes Ophthalmic Once a day Allopurinol 100 MG Tablet 1 tablet Orally Once a day traMADol HCl 50 MG Tablet 1 tablet as needed Orally Once a day tiZANidine HCl 2 MG Tablet 1 tablet at bedtime as needed Orally Once a day Amoxicillin-Pot Clavulanate 500-125 MG Tablet 1 tablet Orally every 12 hrs Gabapentin 400 MG Capsule TAKE 1 CAPSULE BY MOUTH TWICE A DAY predniSONE 5 MG Tablet 3 tablets once a day for 4 days, 2 tablets once a day for 4 days, 1 tablet once a day for 4 days Orally Ondansetron HCl 4 MG Tablet TAKE 1 TABLET BY MOUTH EVERY 12 HOURS NEEDED oxyCODONE HCl 5 MG Tablet 1 tablet as needed Orally twice a day As needed, Notes to Pharmacist: Partial Fill upon Patient RequestTresiba FlexTouch 100 UNIT/ML Solution Pen-injector 36 units Subcutaneous daily Lisinopril 40 MG Tablet 1 tablet Orally Once a day Repatha SureClick 140 MG/ML Solution Auto-injector INJECT 1 ML INTO THE SKIN EVERY 14 DAYS Subcutaneous every 14 days Meclizine HCl 25 MG Tablet 1 tablet as needed Orally every 12 hrs As neededTaking Carvedilol 3.125 MG Tablet 1 tablet with food Orally Twice a day Taking Furosemide 20 MG Tablet 1 tablet Orally every other day Taking Plavix 75 MG Tablet 1 tablet Orally Once a day Taking Pepcid Taking Acetaminophen 500 MG Capsule 1 capsule as needed Orally every 12 hours Taking dilTIAZem HCl ER 240 MG Tablet Extended Release 24 Hour 1 tablet Orally Once a day Taking Tresiba 100 UNIT/ML Solution as directed Subcutaneous daily 36UTaking Eliquis 5 MG Tablet as directed Orally twice a day Taking Mirtazapine 45 MG Tablet 1 tablet at bedtime Orally Once a day Taking Clopidogrel Bisulfate 75 MG Tablet 1 tablet Orally Once a day Taking Latanoprost 0.005 % Solution 1 drop in both eyes Ophthalmic Once a day Taking Allopurinol 100 MG Tablet 1 tablet Orally Once a day Taking traMADol HCl 50 MG Tablet 1 tablet as needed Orally Once a day Taking tiZANidine HCl 2 MG Tablet 1 tablet at bedtime as needed Orally Once a day Taking Amoxicillin- Pot Clavulanate 500-125 MG Tablet 1 tablet Orally every 12 hrs Taking Gabapentin 400 MG Capsule TAKE 1 CAPSULE BY MOUTH TWICE A DAY Taking predniSONE 5 MG Tablet 3 tablets once a day for 4 days, 2 tablets once a day for 4 days, 1 tablet once a day for 4 days Orally Taking Ondansetron HCl 4 MG Tablet TAKE 1 TABLET BY MOUTH EVERY 12 HOURS NEEDED Taking oxyCODONE HCl 5 MG Tablet 1 tablet as needed Orally twice a day As needed, Notes to Pharmacist: Partial Fill upon Patient RequestTaking Tresiba FlexTouch 100 UNIT/ML Solution Pen-injector 36 units Subcutaneous daily Taking Lisinopril 40 MG Tablet 1 tablet Orally Once a day Taking Repatha SureClick 140 MG/ML Solution Auto-injector INJECT 1 ML INTO THE SKIN EVERY 14 DAYS Subcutaneous every 14 days Taking Meclizine HCl 25 MG Tablet 1 tablet as needed Orally every 12 hrs As needed Assessment: * Assessment: 1. E ar fullness, left - H93.8X2 2 . E ar fullness, right - H93.8X1 ? Plan: * Treatment: 2. E ar fullness, right L AB: [facility] Ear Lavage * Procedure Codes: 6 9209 REMOVE IMPACTED EAR WAX UNI Billing Information: * Procedure Codes: 52987 REMOVE IMPACTED EAR WAX UNI. Care Plan Details* * Electronic signature of GHASSAN TOWNSEND on 08/13/2025 at 08:26 AM EST Sign off status: Pending * Provider: Gloria TOWNSEND NP Date: Generated for Armond hudson/Lucina/eTransmitting on: 1 10/14/2024 08:26 AM EST
--- NOTE | ~2025-08-11 | XR_ITS ---
EXAMINATION: XR LUMBAR SPINE 4 OR MORE VIEWS CLINICAL INFORMATION: M51.26 - Other intervertebral disc displacement, lumbar region COMPARISON: Fluoroscopic imaging from July 22, 2025 TECHNIQUE: AP and lateral views of the lumbar spine were obtained. Lateral views were obtained in flexion, extension, and neutral positions. FINDINGS: Status post L4-L5 posterior fusion hardware placement with L4-L5 intervertebral disc in place. Hardware appears intact. Mild scoliosis. Grade 1 retrolisthesis of L2 on L3 in neutral, extension and flexion positions. Grade 1 anterolisthesis of L4 on L5 on neutral, extension and flexion positions. No worsening listhesis with flexion or extension to suggest instability. Vertebral body heights are maintained. Disc space narrowing associated with endplate sclerotic changes at multiple levels, except L3-L4. Sacroiliac joints are intact. Vascular calcifications. XR/XR lumbar spine 4V min IMPRESSION: No evidence of instability. Electronically signed by: Jenise Mackay MD 08/11/2025 09:09 AM [facility]
--- OUTSIDE RECORDS SUMMARY | 2025-08-13 08:24 | XMS_ITS | Continuity of Care Document ---
Author Organization [facility] [address] [place] [address] Phone [phone] Problems Active Problems Provider Date Type 2 [...] DiamondMisc as Instructed Brii Jimenez MD Tramadol [id number] Tablets Take 1 Tablet By Mouth Every Day as Needed NormoylCriss caraballo PA-C Xvbszpjguj148rf Capsules Take 1 Capsule By Mouth Twice A Day NormoyleRajivin PA-C Tresiba Yblaoerto342Kpbj/ML Solution Pen-Inject Inject 36 Units Subcutaneously Daily NormoyleCriss PA-C Clopidogrel Nhwvnnecj84qp Tablets Take 1 Tablet By Mouth 1 Time Each Day. Unknown Ymitycnako29qc Tablets Take 1 Tablet By Mouth Every Day NormoylCriss caraballo PA-C Repatha Qgpatzdlg088ig/ml Solution Auto-Inject Inject 1 ML Into The Skin Every 14 Days Subcutaneous Every 14 Days Criss Churchill PA-C Sdfhnpc9at Tablets Take 1 Tablet By Nelia th Twice A Day Cm Magallanes M.D. Nvqirxndpbt173ce Capsules Take 4 Capsules By Mouth 1 Hour Prior To Procedure Collin Stoddard MD Diltiazem HCL ER Coated Shwkv544vw Caps ER 24HR Take 1 Capsule By [...] 12 Hours as Needed Criss Churchill PA-C Pckfyivnkb10md Tablets Take 1 Tablet By Mouth Every Day Criss Churchill PA-C Pkingvfsxlq35dq Tablets Take 1 Tablet By Mouth Everyday [...]
--- OUTSIDE RECORDS SUMMARY | 2025-08-13 08:24 | XMS_ITS | Clinical Summary ---
Author Organization [facility] Address [address] [place] [address] Care Team Providers Care Animal Surgeon Name Role Phone Cm Magallanes Unavailable [phone] Social History Tobacco Use Types Packs/Day Years [...] age to complete this topic Care Teams Animal Surgeon Relationship Specialty Start Date End Date Cm Magallanse [address] [place] [address] PCP - Insurance Assigned PCP 09/14/22
--- OUTSIDE RECORDS SUMMARY | 2025-08-13 08:24 | XMS_ITS | Patient Health Record ---
Author Organization [facility] Address [address] [place] [address] Care Team Providers Care Supervisor Brew [employer] Name Role Phone Casie Nation Unavailable [phone] Reason For Referral No Information Medications Medication SIG (Take, Route, Frequency, Duration) Notes Start Date End Date Status hydroCHLOROthiazide 25mg 1 ORAL daily; Duration: -3 [facility]- 07/28/2013 Active Lisinopril 30MG 1 ORAL daily; Duration: -3 [facility]- 013 Active Remeron 45MG 1 ORAL at bedtime; Duration: -3 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 Major Problem Hyperlipidemia (50854577) Other and unspecified hyperlipidemia (272.4) Active confirmed Major Problem Depressive disorder (59296040) Depressive disorder, not elsewhere classified (311) Active confirmed Major Problem Benign essential hypertension (5423249) Essential hypertension, benign (401.1) Active confirmed Major Plan Of Treatment No Information Insurance Providers Payer Name Payer Address Payer Phone Subscriber Number Group Number Insured Name Patient Relationship to Insured Coverage Start Date Coverage End Date MEDICARE [address] LESLI LOERA [id number] [place] Self - patient is the insured 1 [facility] [employer] PLAN [address] [place], [place] [id number] [place] Self - patient is the insured
--- OUTSIDE RECORDS SUMMARY | 2025-08-13 08:25 | XMS_ITS | Clinical Summary ---
Author Organization [facility] Address [address] [place] [address] Care Team Providers Care Pulley Maintainer Name Role Phone Cm Magallanes MD Primary Care Provider [phone] Allergies No known active allergies Medications aspirin [...] topic Insurance MEDICARE PART A & [facility] MEDICAID OUT OF [place] [facility] [place] [facility] Care Teams Pulley Maintainer Relationship Specialty Start Date End Date Cm Magallanes MD [address] [place] [address] PCP - General Family Medicine 03/27/22
--- OUTSIDE RECORDS SUMMARY | 2025-08-13 08:25 | XMS_ITS | Patient Health Record ---
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 Name Role Phone Katie Churchill Unavailable [phone] OKEEFE, THEODOREKATELYN Unavailable [phone] CARY MATIAS Unavailable [phone] Allergies Allergen (clinical drug ingredient) Drug/Non Drug Allergy documented on EMR Reaction Allergy Type Onset Date Status atorvastatin Atorvastatin stomach upset Drug Allergy Active Results Component Value Reference Range Flag Notes CBC/Diff Ambiguous Default Reviewed date:06/02/2025 02:27:39 PM Interpretation: Performing Lab:[facility], [address] [facility], [place], Phone - [phone], Director - Gypsy Notes/Report: WBC 8.3 3.4-10.8 [...] from your office. In accordance with the [facility] Ambiguous Test Code Policy dated February 2003, we have assigned CBC with Differential/Platel et, Test Code #570691 to this request. If this is not the testing you wished to receive on this specimen, please contact the [email or web address] Client Inquiry/ Technical Services Department to clarify the test order. We appreciate your business. Comp. Metabolic Panel (14)-3 Reviewed date:06/02/2025 02:27:39 PM Interpretation: Performing Lab:[facility] [place], [address] [facility], Phone - [phone], Director - MDJoy Notes/Report: Glucose 123 70-99 mg/dL H BUN [...] IU/L ALT (SGPT) 11 0-32 IU/L Vitamin [id number] Reviewed date:06/02/2025 02:27:39 PM Interpretation: Performing Lab:[facility] [place], [address], [place], Phone - [phone], Director - MDJoy Notes/Report: Vitamin B12 607 790-6422 pg/mL XR HIP 2-3 VIEWS RIGHT Reviewed date:04/12/2025 01:00:28 PM Interpretation: Performing Lab: Notes/Report: Note See Note [facility], a member of [facility] Patient Name: STARR HOBBS Date of : 1945 Reason for Exam: OTHER Exam Date: 04/08/2025 [id number] EST Report Status: Final Ordering Provider: KATIE [...] surgery in the lower lumbar spine. Code 12567 -------- FINAL REPOR T -------- Dictated By: Jacoby Chavez Dictated Date: 04/08/2025 10:50 ET Assigned Physician: Jacoby Chavez Reviewed and Electronically Signed By: Jacoby Chavez Signed Date: 04/08/2025 10:53 ET Workstation ID: [id number] Transcribed By: Self Edit Transcribed Date: 04/08/2025 10:50 ET MR LUMBAR SPINE WO CONTRAST Reviewed date:05/05/2025 03:58:00 PM Interpretation: Performing Lab: Notes/Report: Note See Note [facility], a member of [facility] Patient Name: STARR HOBBS Date of : 1945 Reason for Exam: Radiculopathy lumbar region Exam Date: 05/03/2025 [id number] EST Report Status: Final Ordering Provider: KATIE [...] Signed Date: 05/05/2025 10:06 ET Workstation ID: [id number] Transcribed By: Self Edit Transcribed Date: 05/05/2025 09:38 ET US HEAD NECK SOFT TISSUE Reviewed date:06/09/2025 12:47:46 PM Interpretation: Performing Lab: Notes/Report: Note See Note [facility], a member of [employer] Patient Name: STARR HOBBS Date of : 1945 Reason for Exam: thyroid nodule Exam Date: 05/31/2025 [id number] EST Report Status: Final Ordering Provider: KATIE [...] in the left thyroid lobe. [place] ([id number]) -------- FINAL REPOR T -------- Dictated By: Daniela Rogers i Dictated Date: 06/07/2025 15:18 ET Assigned Physician: Daniela Khan Reviewed and Electronically Signed By: Daniela Khan Signed Date: 06/07/2025 15:21 ET Workstation ID: [id number] Transcribed By: Self Edit Transcribed Date: 06/07/2025 15:18 ET Urinalysis, Complete-[id number] Reviewed date:04/20/2025 09:57:15 AM Interpretation: Performing Lab:[facility], Phone - [phone], Director - Gypsy Notes/Report: Specific [place] 1.026 1.005-1.030 pH 6.0 5.0-7.5 Urine-Color Yellow [...] seen /lpf Bacteria None seen None seen/Few Albumin/Creatinine Ratio,Uri ne-466590 Reviewed date:04/20/2025 09:57:15 AM Interpretation: Performing Lab:[facility], Phone - [phone], Director - Gypsy Notes/Report: Creatinine, Urine 104.1 Not Estab. mg/dL Albumin, Urine 12.2 Not Estab. ug/mL Alb/Creat Ratio 12 0-29 mg/g creat Normal: 0 - 29 Moderately increased: 30 - 300 Severely increased: >300 Thyroxine (T4)-805777 Reviewed date:04/14/2025 02:50:56 PM Interpretation: Performing Lab:[facility], Phone - [phone], Director - Gypsy Notes/Report: Thyroxine (T4) 9.1 4.5-12.0 ug/dL Vitamin [id number] Reviewed date:04/14/2025 02:50:56 PM Interpretation: Performing Lab:[facility], Phone - [phone], Director - Gypsy Notes/Report: Vitamin B12 651 956-7896 pg/mL Request Problem TNP [facility] was unable to collect sufficient specimen to perform the following test(s), and is providing the patient with re-collection instructions. TEST: [id number] Vitamin D, 25-Hydroxy Panel: [id number] Triiodothyronine (T3)-233506 Reviewed date:04/14/2025 02:50:56 PM Interpretation: Performing Lab:[facility] [place], [address] [place] [address], Phone - [phone], Director - [facility] Notes/Report: Triiodothyronine (T3) 140 71-180 ng/dL Urinalysis, Complete-[id number] Reviewed date:04/14/2025 02:50:56 PM Interpretation: Performing Lab:[facility] [place], [address] [place] [address], Phone - [phone], Director - [facility] Notes/Report: Specific [place] 1.017 1.005-1.030 pH 5.5 5.0-7.5 Urine-Color Yellow [...] seen /lpf Bacteria Many None seen/Few A TSH-978014 Reviewed date:04/14/2025 02:50:56 PM Interpretation: Performing Lab:[facility] [place], [address] [place] [address], Phone - [phone], Director - [facility] Notes/Report: TSH 1.880 0.450-4.500 uIU/mL Vitamin D, 10-Ecrmqwf-123702 Reviewed date:04/14/2025 02:50:56 PM Interpretation: Performing Lab:[facility] [place], [address] [place] [address], Phone - [phone], Director - [facility] Notes/Report: Vitamin D, 25-Hydroxy [facility]NP [facility] was unable to collect sufficient specimen to perform the following test(s), and is providing the patient with re-collection instructions. Vitamin D deficiency has been defined by the [place] of Medicine and an Endocrine Society practice guideline as a level of serum 25-OH vitamin D less than 20 ng/mL (1,2). The Endocrine Society went on to further define vitamin D insufficiency as a level between 21 and 29 ng/mL (2). 1. IOM ([place] of Medicine). 2010. Dietary reference intakes for calcium and D. [place]: The National Academies Press. 2. Salome MF, [place], Arminda OLIVEIRA, et al. Evaluation, treatment, and prevention of vitamin D deficiency: an Endocrine Society clinical practice guideline. JCEM. 2010; 96(7):1911-30. Albumin/Creatinine Ratio,Uri ne-360389 Reviewed date:04/14/2025 02:50:56 PM Interpretation: Performing Lab:[facility], [address] [place] [address], Phone - [phone], Director - MDJodry Notes/Report: Creatinine, Urine 115.8 Not Estab. mg/dL Albumin, Urine 15.5 Not Estab. ug/mL Alb/Creat Ratio 13 0-29 mg/g creat Normal: 0 - 29 Moderately increased: 30 - 300 Severely increased: >300 Lipid Panel-842153 Reviewed date:04/14/2025 02:50:56 PM Interpretation: Performing Lab:[facility], [address] [place] [address], Phone - [phone], Director - MDdry Notes/Report: Cholesterol, Total 182 100-199 mg/dL Triglycerides 227 0-149 mg/dL H HDL Cholesterol 53 >39 mg/dL VLDL Cholesterol Cordell 38 5-40 mg/dL LDL Chol Calc (NIH) 91 0-99 mg/dL Comp. Metabolic Panel (14)-3 25320 Reviewed date:04/14/2025 02:50:56 PM Interpretation: Performing Lab:[facility] [place], [address] [place] [address], Phone - [phone], Director - [facility] Notes/Report: Glucose 91 70-99 mg/dL BUN 23 [...] 0-40 IU/L ALT (SGPT) 12 0-32 IU/L Hemoglobin A1c Reviewed date:04/14/2025 02:50:56 PM Interpretation: Performing Lab:[facility] [place], [address] [place] [address], [place], Phone - [phone], Director - Gypsy Notes/Report: Hemoglobin A1c 5.4 Reference Range: [place] Diabetes Association (ADA) Guidelines: <5.7: Decreased risk for diabetes 5.7 - 6.4: Increased risk for diabetes >6.4: Ongoing Hyperglycemia of any cause <7.0: Glycemic control for adults with diabetes Estimated Average Glucose 108 Reason For Referral Reason MRI large disc extru loraine Diagnosis 1 Intervertebral disc disorders with radiculopathy, lumbar region (M51.16) Referral Organization [facility] [address] Referring Provider First Name Katie Referring Provider Last Name Zhao Referring Provider Speciality Internal edicine Referred Provider Specialty Neurosurgery General Notes Farshad Tucker, [address] [place] [address] [address], [place] [address] , , Clinical Notes Fabricio Lockhart 03:35:47 PM > The patient was seen 05/07/25 Referral Priority Routine Reason treat and evaluate Diagnosis 1 Other intervertebral disc displacement, lumbosacral region (M51.27) Referral Organization [facility] [address] Referring Provider First Name Katie Referring Provider Last Name Zhao Referring Provider Speciality Internal edicine Referred Provider Specialty Pain Medicin e General Notes Jermaine Momin 05/10 01:50:42 PM >, [facility] [place] [address], p: [phone], f: [phone] Clinical Notes Fabricio Lockhart 09/2024 03:18:04 PM > The office confirmed receipt of referral. They will be contacting the patient next week to schedule Referral Priority Routine Reason Vestibular Therapy A TI-ELM Diagnosis 1 Benign paroxysmal po sitional vertigo, bilateral (H81.13) Referral Organization [facility] [address] Referring Provider First Name Katie Referring Provider Last Name Monroenagi Referring Provider Speciality Internal edicine Referred Provider Specialty Physical The rapist General Notes Kerry [place] 10:37:01 AM > Referral form faxed to Clinical Notes Fabricio Lockhart 02:44:08 PM > The office confirmed receipt of the referral. They will contact the patient for scheduling Referral Priority Routine Reason [facility] endocrinolo jose manuel Diagnosis 1 Thyroid nodule (E04. 1) Referral Organization [facility] [address] Referring Provider First Name Katie Referring Provider Last Name Anarashmi Referring Provider Speciality Internal edicine Referred Provider Specialty Endocrinolog y General Notes Kerry [place] 10:39:32 AM > Pt given referral faxed to Referral Priority Routine Reason Diagnosis 1 Thyroid nodule (E04. 1) Referral Organization [facility] [address] Referring Provider First Name Katie Referring Provider Last Name Anarashmi Referring Provider Speciality Internal edicine Referred Provider Specialty Endocrinolog y General Notes Kerry [place] 11/2024 11:33:29 AM > Referral faxed to [phone] Clinical Notes Kerry [place] 11/2024 11:33:44 AM > Pt's request. [facility] endocrinology did not work for pt. [...] a day 03/04/2025 Active Easy Touch Pen [place] 31G X 5 MM Miscellaneous use once [...] Problem Type II diabetes mellitus without complication (323314281) Type 2 diabetes mellitus without complications (E11.9) Active confirmed Problem Encephalopathy (20197898) Other encephalopathy (G93.49) Active confirmed Problem Paroxysmal atrial fibrillation (263546940) Paroxysmal atrial fibrillation (I48.0) Active confirmed Problem Radiculopathy due to lumbar intervertebral disc disorder (682431482480621) Intervertebral disc disorders with radiculopathy, lumbar region (M51.16) Active confirmed Problem Displacement of lumbar intervertebral disc without myelopathy (14859269) Other intervertebral disc displacement, lumbosacral region (M51.27) Active confirmed Problem Abnormal blood pressure (11079708) Encounter for examination of blood pressure with abnormal findings (Z01.31) Active confirmed Problem Long-term current us e of insulin (007757742) skilled nursing (current) use of insulin (Z79.4) Active confirmed Problem Hyperlipoproteinemia (4723422) Acquired hyperlipoproteinemia (E78.5) Active confirmed Problem Vitamin D deficiency (21690919) Vitamin D deficiency (E55.9) Active confirmed Problem Thyroid nodule (976881544) Thyroid nodule (E04.1) Active confirmed Problem John's esophagus (289533453) 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) Active confirmed Problem Lumbar radiculopathy (186595450) Lumbar radiculopathy (M54.16) Active confirmed Problem Glaucoma (65474214) Glaucoma of both eyes, unspecified glaucoma type (H40.9) Active confirmed Problem Chronic gouty arthritis (25576145) Chronic gout of left foot, 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) Active confirmed Problem Vitamin B>12< deficiency anaemia (26964983) Anemia due to vitamin B12 deficiency, unspecified B12 deficiency type (D51.9) Active confirmed Problem Mixed hyperlipidemia (277812668) Hyperlipidemia, mixed (E78.2) Active confirmed Problem Hypoglycemia (595010538) Hypoglycemia (E16.2) Active confirmed Problem Avitaminosis D (46717080) Avitaminosis D (E55.9) Active confirmed Problem Stenosis of right carotid artery (242606458527447) Stenosis of right carotid artery (I65.21) Active confirmed Problem Abnormal metabolic state due to diabetes mellitus (568601842) Abnormal metabolic state due to diabetes mellitus (E11.9) Active confirmed Problem Postviral fatigue syndrome (97145372) Postviral fatigue syndrome (G93.31) Active confirmed Problem Essential hypertension (22201381) Hypertension, essential (I10) Active confirmed Problem Type II diabetes mellitus well controlled (675966348) Diabetes type 2, controlled (E11.9) Active confirmed Vital Signs Heart Rate 99 /min 07/20/2025 Oximetry 96 % 07/20/2025 Blood pressure diastolic 70 mm Hg 07/20/2025 Height 63.5 in 07/20/2025 Blood pressure systolic 138 mm Hg 07/20/2025 Weight 203.6 lbs 07/20/2025 BMI 35.5 kg/m2 07/20/2025 Encounters Encounter Location Date Provider Diagnosis [facility] [address] [place] [address] 06/14/2025 MATIAS CHARLEYT Ear fullness, left H93.8X2 and Ear fullness, right H93.8X1 [facility] [address] [place] [address] 03/04/2025 Katie Normoyle Hyperlipidemia, mixe d E78.2 [...] glaucoma type H40.9 [facility] [address] [address] 04/08/2025 Katie Normoyle Hip pain, right M25. [...] abnormal findings Z01.30 [facility] [address] [address] 04/15/2025 Katie Normoyle Hip pain, right M25. [...] of blood pressure without abnormal findings Z01.30 [facility] [address] [address] 04/28/2025 Katie Normoyle Hip pain, right M25. 551 ; Hyperlipidemia, mixed E78.2 ; Hypertension, essential I10 ; Stenosis of right carotid artery I65.21 ; Chronic gout of left foot, unspecified cause M1A.0720 ; Paroxysmal atrial fibrillation I48.0 ; John's esophagus with dysplasia K22.719 ; Diabetes type 2, controlled E11.9 and Lumbar radiculopathy M54.16 [facility] [address] [address] 05/25/2025 Katie Normoyle COVID-19 U07.1 ; Ot [...] of blood pressure without abnormal findings Z01.30 [facility] [address] [address] 06/08/2025 Katie Normoyle Hyperlipidemia, mixe d E78.2 [...] abnormal findings Z01.30 [facility] [address] 06/22/2025 Katie Normoyle Hyperlipidemia, mixe d E78.2 ; Type 2 diabetes mellitus without complications E11.9 ; Hypertension, essential I10 ; Stenosis of right carotid artery I65.21 ; Chronic gout of left foot, unspecified cause M1A.0720 ; Paroxysmal atrial fibrillation I48.0 ; John's esophagus with dysplasia K22.719 ; Lumbar radiculopathy M54.16 ; Thyroid nodule E04.1 ; Benign paroxysmal positional vertigo, bilateral H81.13 ; skilled nursing (current) use of insulin Z79.4 and Encounter for examination of blood pressure without abnormal findings Z01.30 [facility] [address] 07/20/2025 Katie Normoyle Left foot pain M79.6 72 ; Hyperlipidemia, mixed E78.2 ; Type 2 diabetes mellitus without complications E11.9 ; Hypertension, essential I10 ; Stenosis of right carotid artery I65.21 ; Chronic gout of left foot, unspecified cause M1A.0720 ; Paroxysmal atrial fibrillation I48.0 ; John's esophagus with dysplasia K22.719 ; Lumbar radiculopathy M54.16 ; Thyroid nodule E04.1 ; 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.4 and Encounter for examination of blood pressure without abnormal findings Z01.30 [facility] [address] 03/04/2025 Katie Normoyle [facility] [address] 03/04/2025 Katie Normoyle Hyperlipidemia, mixe d E78.2 ; Diabetes type 2, controlled E11.9 ; Screening for thyroid disorder Z13.29 ; Vitamin B deficiency E53.9 ; Vitamin D deficiency E55.9 and Kidney disease N28.9 [facility] [address] [address] 05/05/2025 Katie Normoyle [facility] [address] 05/05/2025 Katie Normoyle [facility] [address] [place] [address] 05/07/2025 Katie Normoyle [facility] [address] [place], [place] 05/10/2025 Katie Normoyle [facility] [address] [place], [place] 05/11/2025 Katie Normoyle [facility] [address] [place], [place] 05/21/2025 Katie Normoyle [facility] [address] [place] [address] 05/21/2025 Katie Normoyle [facility] [address] [place] [address] 05/26/2025 Katie Normoyle Thyroid nodule E04.1 [facility] [address] 05/26/2025 Katie Normoyle [facility] [address] [place], [place] 05/26/2025 Katie Normoyle [facility] [address] [place] [address] 06/08/2025 Katie Normoyle [facility] [address] 06/09/2025 Katie Normoyle [facility] [address] [place] [address] 06/11/2025 Katie Normoyle [facility] [address] [place] [address] 06/22/2025 Katie Normoyle [facility] [address] [place] [address] 06/24/2025 Katie Normoyle [facility] [address] [place], [place] 07/14/2025 Katie Normoyle [facility] [address] [place], [place] 07/20/2025 Katie Normoyle Diabetes type 2, controlled E11.9 [facility] [address] [address] 03/19/2025 Katie Normoyle [facility] [address] [address] 04/24/2025 Katie Normoyle Chronic gout of left foot, unspecified cause M1A.0720 [facility] [address] [address] 05/05/2025 Katie Normoyle [facility] [address] [address] 07/02/2025 Katie Normoyle [facility] [address] [address] 07/03/2025 Katie Normoyle [facility] [address] [address] 07/05/2025 Katie Normoyle [facility] [address] [address] 07/13/2025 Katie Normoyle Assessments Encounter Date Diagnosis [...] regularly with dentist and eye doctor. 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 Up-to-date on all vaccines. She believes she is overdue with mammogram at [facility], plans to schedule. She will be due for repeat colonoscopy with endoscopy August 2025 when she discontinues Plavix. Believes she has had a bone density scan but unsure of date and results. #Paroxysmal atrial fibrillation: Rate controlled. Denies palpitations or chest pain. Continue diltiazem 180 mg daily. Continue Eliquis 5 mg daily. Follows closely with [facility] cardiology, Dr. Delarosa. Recently had cardiac stents [...] Dictation was accomplished with the use of [email or web address] voice recognition software, which is prone to [...] regularly with dentist and eye doctor. 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 Up-to-date on all vaccines. She believes she is overdue with mammogram at [facility], plans to schedule. She will be due for repeat colonoscopy with endoscopy August 2025 when she discontinues Plavix. Believes she has had a bone density scan but unsure of date and results. #Paroxysmal atrial fibrillation: Rate controlled. Denies palpitations or chest pain. Continue diltiazem 180 mg daily. Continue Eliquis 5 mg daily. Follows closely with [facility] cardiology, Dr. Delarosa. Recently had cardiac stents [...] Dictation was accomplished with the use of [email or web address] voice recognition software, which is prone to medical misidentifications and grammatical errors. This are unintentional and the practitioner does try to identify and correct these, but some could still be present. Please do not hesitate to contact practitioner for clarification. 03/04/2025 Hyperlipidemia, mixed (ICD-10 - E78.2) 04/08/2025 Hip pain, right (ICD-10 - M25.551) [place] is a 79-year-old female with past medical [...] Eliquis 5 mg daily. Follows closely with [facility] cardiology, Dr. Delarosa. Recently had cardiac stents [...] Dictation was accomplished with the use of [email or web address] voice recognition software, which is prone to [...] Eliquis 5 mg daily. Follows closely with [facility] cardiology, Dr. Delarosa. Recently had cardiac stents [...] Dictation was accomplished with the use of [email or web address] voice recognition software, which is prone to medical misidentifications and grammatical errors. This are unintentional and the practitioner does try to identify and correct these, but some could still be present. Please do not hesitate to contact practitioner for clarification. 04/15/2025 Hyperlipidemia, mixed (ICD-10 - E78.2) [place] is a 79-year-old female with past medical [...] Eliquis 5 mg daily. [facility] Dr[facility] Del[facility]osa. Recently had cardiac [...] Dictation was accomplished with the use of [email or web address] voice recognition software, which is prone to [...] Eliquis 5 mg daily. Follows closely with [facility] cardiology, Dr. Delarosa. Recently had cardiac stents [...] Dictation was accomplished with the use of [email or web address] voice recognition software, which is prone to medical misidentifications and grammatical errors. This are unintentional and the practitioner does try to identify and correct these, but some could still be present. Please do not hesitate to contact practitioner for clarification. 04/28/2025 Hyperlipidemia, mixed (ICD-10 - E78.2) [place] is a 79-year-old female with past medical [...] Eliquis 5 mg daily. Follows closely with [facility] cardiology, Dr. Delarosa. Recently had cardiac stents [...] Dictation was accomplished with the use of [email or web address] voice recognition software, which is prone to [...] disc extrusion. Noted to be admitted to [facility] 05/11/2025 until 05/15/2025 due to concern [...] placed to her neurosurgeon, Dr. Tucker with [facility]. She was cleared for surgery by cardiology. She was referred to pain management due to patient request for morphine however pain management deferred to PCP/neurosurgery. Surgery scheduled 07/22/2025. No bowel or bladder incontinence or saddle anesthesia. #Paroxysmal atrial fibrillation: Regular rhythm. Denies palpitations or chest pain. Continue diltiazem 180 mg daily. Continue Eliquis 5 mg daily. Follows closely with [facility] cardiology, Dr. Delarosa. Recently had cardiac stents [...] Dictation was accomplished with the use of [email or web address] voice recognition software, which is prone to [...] disc extrusion. Noted to be admitted to [facility] 05/11/2025 until 05/15/2025 due to concern [...] placed to her neurosurgeon, Dr. Tucker with [facility]. She was cleared for surgery by cardiology. She was referred to pain management due to patient request for morphine however pain management deferred to PCP/neurosurgery. Surgery scheduled 07/22/2025. No bowel or bladder incontinence or saddle anesthesia. #Paroxysmal atrial fibrillation: Regular rhythm. Denies palpitations or chest pain. Continue diltiazem 180 mg daily. Continue Eliquis 5 mg daily. [facility], Dr. Delarosa. Recently had cardiac [...] Dictation was accomplished with the use of [email or web address] voice recognition software, which is prone to [...] placed to her neurosurgeon, Dr. Tucker with [facility]. She was cleared for surgery by [...] Eliquis 5 mg daily. Follows closely with [facility] cardiology, Dr. Delarosa. Recently had cardiac stents [...] Dictation was accomplished with the use of [email or web address] voice recognition software, which is prone to [...] placed to her neurosurgeon, Dr. Tucker with [facility]. She was cleared for surgery by [...] Eliquis 5 mg daily. Follows closely with [facility] cardiology, Dr. Delarosa. Recently had cardiac stents [...] Dictation was accomplished with the use of [email or web address] voice recognition software, which is prone to [...] placed to her neurosurgeon, Dr. Tucker with [facility]. She was cleared for surgery by [...] Eliquis 5 mg daily. Follows closely with [facility] cardiology, Dr. Delarosa. Recently had cardiac stents [...] Dictation was accomplished with the use of [email or web address] voice recognition software, which is prone to medical misidentifications and grammatical errors. This are unintentional and the practitioner does try to identify and correct these, but some could still be present. Please do not hesitate to contact practitioner for clarification. 06/22/2025 Hyperlipidemia, mixed (ICD-10 - E78.2) [place] is a 79-year-old female with past medical [...] placed to her neurosurgeon, Dr. Tucker with [facility]. She was cleared for surgery by [...] Eliquis 5 mg daily. Follows closely with [facility] cardiology, Dr. Delarosa. Recently had cardiac stents [...] Dictation was accomplished with the use of [email or web address] voice recognition software, which is prone to [...] placed to her neurosurgeon, Dr. Tucker with [facility]. She was cleared for surgery by [...] Eliquis 5 mg daily. Follows closely with [facility] cardiology, Dr. Delarosa. Recently had cardiac stents [...] Dictation was accomplished with the use of [email or web address] voice recognition software, which is prone to medical misidentifications and grammatical errors. This are unintentional and the practitioner does try to identify and correct these, but some could still be present. Please do not hesitate to contact practitioner for clarification. 07/20/2025 Hyperlipidemia, mixed (ICD-10 - E78.2) [place] is a 79-year-old female with past medical [...] placed to her neurosurgeon, Dr. Tucker with [facility]. She was cleared for surgery by [...] Eliquis 5 mg daily. [facility], Dr. Delarosa. Recently had cardiac [...] Dictation was accomplished with the use of [email or web address] voice recognition software, which is prone to [...] placed to her neurosurgeon, Dr. Tucker with [facility]. She was cleared for surgery by [...] Eliquis 5 mg daily. Follows closely with [facility] cardiology, Dr. Delarosa. Recently had cardiac stents [...] Dictation was accomplished with the use of [email or web address] voice recognition software, which is prone to [...] placed to her neurosurgeon, Dr. Tucker with [facility]. She was cleared for surgery by [...] Eliquis 5 mg daily. Follows closely with [facility] cardiology, Dr. Delarosa. Recently had cardiac stents [...] Dictation was accomplished with the use of [email or web address] voice recognition software, which is prone to [...] placed to her neurosurgeon, Dr. Tucker with [facility]. She was cleared for surgery by [...] Eliquis 5 mg daily. Follows closely with [facility] cardiology, Dr. Delarosa. Recently had cardiac stents [...] Dictation was accomplished with the use of [email or web address] voice recognition software, which is prone to [...] disc extrusion. Noted to be admitted to [facility] 05/11/2025 until 05/15/2025 due to concern [...] placed to her neurosurgeon, Dr. Tucker with [facility]. She was cleared for surgery by cardiology. She was referred to pain management due to patient request for morphine however pain management deferred to PCP/neurosurgery. Surgery scheduled 07/22/2025. No bowel or bladder incontinence or saddle anesthesia. #Paroxysmal atrial fibrillation: Regular rhythm. Denies palpitations or chest pain. Continue diltiazem 180 mg daily. Continue Eliquis 5 mg daily. Follows closely with [facility] cardiology, Dr. Delarosa. Recently had cardiac stents [...] Dictation was accomplished with the use of [email or web address] voice recognition software, which is prone to [...] Eliquis 5 mg daily. Follows closely with [facility] cardiology, Dr. Delarosa. Recently had cardiac stents [...] Dictation was accomplished with the use of [email or web address] voice recognition software, which is prone to [...] Eliquis 5 mg daily. Follows closely with [facility] cardiology, Dr. Delarosa. Recently had cardiac stents [...] Dictation was accomplished with the use of [email or web address] voice recognition software, which is prone to medical misidentifications and grammatical errors. This are unintentional and the practitioner does try to identify and correct these, but some could still be present. Please do not hesitate to contact practitioner for clarification. 04/08/2025 Hypertension, essential (ICD-10 - I10) [place] is a 79-year-old female with past medical history of hyperlipidemia, paroxysmal atrial fibrillation, rate controlled, carotid artery stenosis, CKD, glaucoma, type 2 diabetes, gout, hypertension, Jonh's esophagus, and CVA in 2021 who presents [...] Eliquis 5 mg daily. Follows closely with [facility] cardiology, Dr. Delarosa. Recently had cardiac stents [...] Dictation was accomplished with the use of [email or web address] voice recognition software, which is prone to [...] regularly with dentist and eye doctor. 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 Up-to-date on all vaccines. She believes she is overdue with mammogram at [facility], plans to schedule. She will be due for repeat colonoscopy with endoscopy August 2025 when she discontinues Plavix. Believes she has had a bone density scan but unsure of date and results. #Paroxysmal atrial fibrillation: Rate controlled. Denies palpitations or chest pain. Continue diltiazem 180 mg daily. Continue Eliquis 5 mg daily. Follows closely with [facility] cardiology, Dr. Delarosa. Recently had cardiac stents [...] Dictation was accomplished with the use of [email or web address] voice recognition software, which is prone to [...] regularly with dentist and eye doctor. 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 Up-to-date on all vaccines. She believes she is overdue with mammogram at [facility], plans to schedule. She will be due for repeat colonoscopy with endoscopy August 2025 when she discontinues Plavix. Believes she has had a bone density scan but unsure of date and results. #Paroxysmal atrial fibrillation: Rate controlled. Denies palpitations or chest pain. Continue diltiazem 180 mg daily. Continue Eliquis 5 mg daily. Follows closely with [facility] cardiology, Dr. Delarosa. Recently had cardiac stents [...] Dictation was accomplished with the use of [email or web address] voice recognition software, which is prone to [...] Eliquis 5 mg daily. [facility], Dr. Delarosa. Recently had cardiac [...] questions/concerns arise. Case discussed with collaborating physician Jitednra Okeefe who reviewed the assessment and plan. Chart, medications, labs, vital signs reviewed. Dictation was accomplished with the use of [email or web address] voice recognition software, which is prone to [...] Eliquis 5 mg daily. Follows closely with [facility] cardiology, Dr. Delarosa. Recently had cardiac stents [...] Dictation was accomplished with the use of [email or web address] voice recognition software, which is prone to [...] Eliquis 5 mg daily. [facility], Dr. Delarosa. Recently had cardiac [...] Dictation was accomplished with the use of [email or web address] voice recognition software, which is prone to [...] placed to her neurosurgeon, Dr. Tucker with [facility]. She was cleared for surgery by [...] Eliquis 5 mg daily. Follows closely with [facility] cardiology, Dr. Delarosa. Recently had cardiac stents [...] disc extrusion. Noted to be admitted to [facility] 05/11/2025 until 05/15/2025 due to concern [...] placed to her neurosurgeon, Dr. Tucker with [facility]. She was cleared for surgery by cardiology. She was referred to pain management due to patient request for morphine however pain management deferred to PCP/neurosurgery. Surgery scheduled 07/22/2025. No bowel or bladder incontinence or saddle anesthesia. #Paroxysmal atrial fibrillation: Regular rhythm. Denies palpitations or chest pain. Continue diltiazem 180 mg daily. Continue Eliquis 5 mg daily. Follows closely with [facility] cardiology, Dr. Delarosa. Recently had cardiac stents [...] Dictation was accomplished with the use of [email or web address] voice recognition software, which is prone to [...] with endocrinology for recommendations, referral to Dr. Hpoe placed today. #Disequilibrium: She states symptoms are [...] placed to her neurosurgeon, Dr. Tucker with [facility]. She was cleared for surgery by [...] Eliquis 5 mg daily. Follows closely with [facility] cardiology, Dr. Delarosa. Recently had cardiac stents [...] Dictation was accomplished with the use of [email or web address] voice recognition software, which is prone to [...] placed to her neurosurgeon, Dr. Tucker with [facility]. She was cleared for surgery by [...] Eliquis 5 mg daily. Follows closely with [facility] cardiology, Dr. Delarosa. Recently had cardiac stents [...] Dictation was accomplished with the use of [email or web address] voice recognition software, which is prone to [...] placed to her neurosurgeon, Dr. Tucker with [facility]. She was cleared for surgery by [...] Eliquis 5 mg daily. Follows closely with [facility] cardiology, Dr. Delarosa. Recently had cardiac stents [...] Dictation was accomplished with the use of [email or web address] voice recognition software, which is prone to medical misidentifications and grammatical errors. This are unintentional and the practitioner does try to identify and correct these, but some could still be present. Please do not hesitate to contact practitioner for clarification. 06/22/2025 Chronic gout of left foot, unspecified cause (ICD-10 - M1A.0720) [place] is a 79-year-old female with past medical [...] placed to her neurosurgeon, Dr. Tucker with [facility]. She was cleared for surgery by [...] Eliquis 5 mg daily. Follows closely with [facility] cardiology, Dr. Delarosa. Recently had cardiac stents [...] Dictation was accomplished with the use of [email or web address] voice recognition software, which is prone to medical misidentifications and grammatical errors. This are unintentional and the practitioner does try to identify and correct these, but some could still be present. Please do not hesitate to contact practitioner for clarification. 06/08/2025 Chronic gout of left foot, unspecified cause (ICD-10 - M1A.0720) [place] is a 79-year-old female with past medical [...] placed to her neurosurgeon, Dr. Tucker with [facility]. She was cleared for surgery by [...] Eliquis 5 mg daily. [facility], Dr. Delarosa. Recently had cardiac [...] Dictation was accomplished with the use of [email or web address] voice recognition software, which is prone to [...] disc extrusion. Noted to be admitted to [facility] 05/11/2025 until 05/15/2025 due to concern [...] placed to her neurosurgeon, Dr. Tucker with [facility]. She was cleared for surgery by cardiology. She was referred to pain management due to patient request for morphine however pain management deferred to PCP/neurosurgery. Surgery scheduled 07/22/2025. No bowel or bladder incontinence or saddle anesthesia. #Paroxysmal atrial fibrillation: Regular rhythm. Denies palpitations or chest pain. Continue diltiazem 180 mg daily. Continue Eliquis 5 mg daily. Follows closely with [facility] cardiology, Dr. Delarosa. Recently had cardiac stents [...] Dictation was accomplished with the use of [email or web address] voice recognition software, which is prone to medical misidentifications and grammatical errors. This are unintentional and the practitioner does try to identify and correct these, but some could still be present. Please do not hesitate to contact practitioner for clarification. 04/15/2025 Chronic gout of left foot, unspecified cause (ICD-10 - M1A.0720) [place] is a 79-year-old female with past medical [...] Eliquis 5 mg daily. Follows closely with [facility] cardiology, Dr. Delarosa. Recently had cardiac stents [...] Dictation was accomplished with the use of [email or web address] voice recognition software, which is prone to [...] Eliquis 5 mg daily. Follows closely with [facility] cardiology, Dr. Delarosa. Recently had cardiac stents [...] Dictation was accomplished with the use of [email or web address] voice recognition software, which is prone to [...] Eliquis 5 mg daily. Follows closely with [facility] cardiology, Dr. Delarosa. Recently had cardiac stents [...] Dictation was accomplished with the use of [email or web address] voice recognition software, which is prone to [...] regularly with dentist and eye doctor. 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 Up-to-date on all vaccines. She believes she is overdue with mammogram at [facility], plans to schedule. She will be due for repeat colonoscopy with endoscopy August 2025 when she discontinues Plavix. Believes she has had a bone density scan but unsure of date and results. #Paroxysmal atrial fibrillation: Rate controlled. Denies palpitations or chest pain. Continue diltiazem 180 mg daily. Continue Eliquis 5 mg daily. Follows closely with [facility] cardiology, Dr. Delarosa. Recently had cardiac stents [...] Dictation was accomplished with the use of [email or web address] voice recognition software, which is prone to [...] regularly with dentist and eye doctor. 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 Up-to-date on all vaccines. She believes she is overdue with mammogram at [facility], plans to schedule. She will be due for repeat colonoscopy with endoscopy August 2025 when she discontinues Plavix. Believes she has had a bone density scan but unsure of date and results. #Paroxysmal atrial fibrillation: Rate controlled. Denies palpitations or chest pain. Continue diltiazem 180 mg daily. Continue Eliquis 5 mg daily. Follows closely with [facility] cardiology, Dr. Delarosa. Recently had cardiac stents [...] Dictation was accomplished with the use of [email or web address] voice recognition software, which is prone to medical misidentifications and grammatical errors. This are unintentional and the practitioner does try to identify and correct these, but some could still be present. Please do not hesitate to contact practitioner for clarification. 04/08/2025 Paroxysmal atrial fibrillation (ICD-10 - I48.0) [place] is a 79-year-old female with past medical [...] Eliquis 5 mg daily. [facility], Dr. Delarosa. Recently had cardiac [...] Dictation was accomplished with the use of [email or web address] voice recognition software, which is prone to [...] Eliquis 5 mg daily. Follows closely with [facility] cardiology, Dr. Delarosa. Recently had cardiac stents [...] Dictation was accomplished with the use of [email or web address] voice recognition software, which is prone to medical misidentifications and grammatical errors. This are unintentional and the practitioner does try to identify and correct these, but some could still be present. Please do not hesitate to contact practitioner for clarification. 04/28/2025 Paroxysmal atrial fibrillation (ICD-10 - I48.0) [place] is a 79-year-old female with past medical [...] Eliquis 5 mg daily. Follows closely with [facility] cardiology, Dr. Delarosa. Recently had cardiac stents [...] disc extrusion. Noted to be admitted to [facility] 05/11/2025 until 05/15/2025 due to concern [...] placed to her neurosurgeon, Dr. Tucker with [facility]. She was cleared for surgery by cardiology. She was referred to pain management due to patient request for morphine however pain management deferred to PCP/neurosurgery. Surgery scheduled 07/22/2025. No bowel or bladder incontinence or saddle anesthesia. #Paroxysmal atrial fibrillation: Regular rhythm. Denies palpitations or chest pain. Continue diltiazem 180 mg daily. Continue Eliquis 5 mg daily. Follows closely with [facility] cardiology, Dr. Delarosa. Recently had cardiac stents [...] Dictation was accomplished with the use of [email or web address] voice recognition software, which is prone to [...] placed to her neurosurgeon, Dr. Tucker with [facility]. She was cleared for surgery by [...] Eliquis 5 mg daily. Follows closely with [facility] cardiology, Dr. Delarosa. Recently had cardiac stents [...] Dictation was accomplished with the use of [email or web address] voice recognition software, which is prone to [...] placed to her neurosurgeon, Dr. Tucker with [facility]. She was cleared for surgery by [...] Dictation was accomplished with the use of [email or web address] voice recognition software, which is prone to [...] placed to her neurosurgeon, Dr. Tucker with [facility]. She was cleared for surgery by [...] Eliquis 5 mg daily. Follows closely with [facility] cardiology, Dr. Delarosa. Recently had cardiac stents [...] Dictation was accomplished with the use of [email or web address] voice recognition software, which is prone to medical misidentifications and grammatical errors. This are unintentional and the practitioner does try to identify and correct these, but some could still be present. Please do not hesitate to contact practitioner for clarification. 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 Tucker with [facility]. She was cleared for surgery by [...] Eliquis 5 mg daily. Follows closely with [facility] cardiology, Dr. Delarosa. Recently had cardiac stents [...] Dictation was accomplished with the use of [email or web address] voice recognition software, which is prone to medical misidentifications and grammatical errors. This are unintentional and the practitioner does try to identify and correct these, but some could still be present. Please do not hesitate to contact practitioner for clarification. 07/20/2025 Paroxysmal atrial fibrillation (ICD-10 - I48.0) [place] is a 79-year-old female with past medical [...] placed to her neurosurgeon, Dr. Tucker with [facility]. She was cleared for surgery by [...] Eliquis 5 mg daily. Follows closely with [facility] cardiology, Dr. Delarosa. Recently had cardiac stents [...] Dictation was accomplished with the use of [email or web address] voice recognition software, which is prone to medical misidentifications and grammatical errors. This are unintentional and the practitioner does try to identify and correct these, but some could still be present. Please do not hesitate to contact practitioner for clarification. 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 Tucker with [facility]. She was cleared for surgery by [...] Eliquis 5 mg daily. Follows closely with [facility] cardiology, Dr. Delarosa. Recently had cardiac stents [...] Dictation was accomplished with the use of [email or web address] voice recognition software, which is prone to [...] disc extrusion. Noted to be admitted to [facility] 05/11/2025 until 05/15/2025 due to concern [...] placed to her neurosurgeon, Dr. Tucker with [facility]. She was cleared for surgery by cardiology. She was referred to pain management due to patient request for morphine however pain management deferred to PCP/neurosurgery. Surgery scheduled 07/22/2025. No bowel or bladder incontinence or saddle anesthesia. #Paroxysmal atrial fibrillation: Regular rhythm. Denies palpitations or chest pain. Continue diltiazem 180 mg daily. Continue Eliquis 5 mg daily. Follows closely with [facility] cardiology, Dr. Delarosa. Recently had cardiac stents [...] Dictation was accomplished with the use of [email or web address] voice recognition software, which is prone to medical misidentifications and grammatical errors. This are unintentional and the practitioner does try to identify and correct these, but some could still be present. Please do not hesitate to contact practitioner for clarification. 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 Follows closely with [facility] cardiology, Dr. Delarosa. Recently had cardiac stents [...] Dictation was accomplished with the use of [email or web address] voice recognition software, which is prone to medical misidentifications and grammatical errors. This are unintentional and the practitioner does try to identify and correct these, but some could still be present. Please do not hesitate to contact practitioner for clarification. 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 Follows closely with [facility] cardiology, Dr. Delarosa. Recently had cardiac stents [...] Dictation was accomplished with the use of [email or web address] voice recognition software, which is prone to [...] Eliquis 5 mg daily. Follows closely with [facility] cardiology, Dr. Delarosa. Recently had cardiac stents [...] Dictation was accomplished with the use of [email or web address] voice recognition software, which is prone to [...] regularly with dentist and eye doctor. 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 Up-to-date on all vaccines. She believes she is overdue with mammogram at [facility], plans to schedule. She will be due for repeat colonoscopy with endoscopy August 2025 when she discontinues Plavix. Believes she has had a bone density scan but unsure of date and results. #Paroxysmal atrial fibrillation: Rate controlled. Denies palpitations or chest pain. Continue diltiazem 180 mg daily. Continue Eliquis 5 mg daily. Follows closely with [facility] cardiology, Dr. Delarosa. Recently had cardiac stents [...] Dictation was accomplished with the use of [email or web address] voice recognition software, which is prone to [...] regularly with dentist and eye doctor. 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 Up-to-date on all vaccines. She believes she is overdue with mammogram at [facility], plans to schedule. She will be due for repeat colonoscopy with endoscopy August 2025 when she discontinues Plavix. Believes she has had a bone density scan but unsure of date and results. #Paroxysmal atrial fibrillation: Rate controlled. Denies palpitations or chest pain. Continue diltiazem 180 mg daily. Continue Eliquis 5 mg daily. Follows closely with [facility] cardiology, Dr. Delarosa. Recently had cardiac stents [...] Dictation was accomplished with the use of [email or web address] voice recognition software, which is prone to medical misidentifications and grammatical errors. This are unintentional and the practitioner does try to identify and correct these, but some could still be present. Please do not hesitate to contact practitioner for clarification. 04/08/2025 Diabetes type 2, controlled (ICD-10 - E11.9) [place] is a 79-year-old female with past medical [...] Eliquis 5 mg daily. Follows closely with [facility] cardiology, Dr. Delarosa. Recently had cardiac stents [...] Dictation was accomplished with the use of [email or web address] voice recognition software, which is prone to [...] Eliquis 5 mg daily. Follows closely with [facility] cardiology, Dr. Delarosa. Recently had cardiac stents [...] Dictation was accomplished with the use of [email or web address] voice recognition software, which is prone to medical misidentifications and grammatical errors. This are unintentional and the practitioner does try to identify and correct these, but some could still be present. Please do not hesitate to contact practitioner for clarification. 04/28/2025 Diabetes type 2, controlled (ICD-10 - E11.9) [place] is a 79-year-old female with past medical [...] Eliquis 5 mg daily. Follows closely with [facility] cardiology, Dr. Delarosa. Recently had cardiac stents [...] Dictation was accomplished with the use of [email or web address] voice recognition software, which is prone to [...] disc extrusion. Noted to be admitted to [facility] 05/11/2025 until 05/15/2025 due to concern [...] placed to her neurosurgeon, Dr. Tucker with [facility]. She was cleared for surgery by cardiology. She was referred to pain management due to patient request for morphine however pain management deferred to PCP/neurosurgery. Surgery scheduled 07/22/2025. No bowel or bladder incontinence or saddle anesthesia. #Paroxysmal atrial fibrillation: Regular rhythm. Denies palpitations or chest pain. Continue diltiazem 180 mg daily. Continue Eliquis 5 mg daily. Follows closely with [facility] cardiology, Dr. Delarosa. Recently had cardiac stents [...] Dictation was accomplished with the use of [email or web address] voice recognition software, which is prone to [...] placed to her neurosurgeon, Dr. Tucker with [facility]. She was cleared for surgery by [...] Eliquis 5 mg daily. Follows closely with [facility] cardiology, Dr. Delarosa. Recently had cardiac stents [...] Dictation was accomplished with the use of [email or web address] voice recognition software, which is prone to [...] placed to her neurosurgeon, Dr. Tucker with [facility]. She was cleared for surgery by [...] Eliquis 5 mg daily. Follows closely with [facility] cardiology, Dr. Delarosa. Recently had cardiac stents [...] Dictation was accomplished with the use of [email or web address] voice recognition software, which is prone to [...] placed to her neurosurgeon, Dr. Tucker with [facility]. She was cleared for surgery by [...] Eliquis 5 mg daily. Follows closely with [facility] cardiology, Dr. Delarosa. Recently had cardiac stents [...] Dictation was accomplished with the use of [email or web address] voice recognition software, which is prone to [...] placed to her neurosurgeon, Dr. Tucker with [facility]. She was cleared for surgery by [...] Eliquis 5 mg daily. Follows closely with [facility] cardiology, Dr. Delarosa. Recently had cardiac stents [...] Dictation was accomplished with the use of [email or web address] voice recognition software, which is prone to [...] placed to her neurosurgeon, Dr. Tucker with [facility]. She was cleared for surgery by [...] Eliquis 5 mg daily. Follows closely with [facility] cardiology, Dr. Delarosa. Recently had cardiac stents [...] Dictation was accomplished with the use of [email or web address] voice recognition software, which is prone to [...] placed to her neurosurgeon, Dr. Tucker with [facility]. She was cleared for surgery by [...] Eliquis 5 mg daily. Follows closely with [facility] cardiology, Dr. Delarosa. Recently had cardiac stents [...] Dictation was accomplished with the use of [email or web address] voice recognition software, which is prone to [...] disc extrusion. Noted to be admitted to [facility] 05/11/2025 until 05/15/2025 due to concern [...] placed to her neurosurgeon, Dr. Tucker with [facility]. She was cleared for surgery by cardiology. She was referred to pain management due to patient request for morphine however pain management deferred to PCP/neurosurgery. Surgery scheduled 07/22/2025. No bowel or bladder incontinence or saddle anesthesia. #Paroxysmal atrial fibrillation: Regular rhythm. Denies palpitations or chest pain. Continue diltiazem 180 mg daily. Continue Eliquis 5 mg daily. [facility], Dr. Delarosa. Recently had cardiac [...] Dictation was accomplished with the use of [email or web address] voice recognition software, which is prone to [...] Eliquis 5 mg daily. Follows closely with [facility] cardiology, Dr. Delarosa. Recently had cardiac stents [...] Dictation was accomplished with the use of [email or web address] voice recognition software, which is prone to [...] Eliquis 5 mg daily. Follows closely with [facility] cardiology, Dr. Delarosa. Recently had cardiac stents [...] Dictation was accomplished with the use of [email or web address] voice recognition software, which is prone to [...] Eliquis 5 mg daily. Follows closely with [facility] cardiology, Dr. Delarosa. Recently had cardiac stents [...] Dictation was accomplished with the use of [email or web address] voice recognition software, which is prone to [...] regularly with dentist and eye doctor. 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 Up-to-date on all vaccines. She believes she is overdue with mammogram at [facility], plans to schedule. She will be due for repeat colonoscopy with endoscopy August 2025 when she discontinues Plavix. Believes she has had a bone density scan but unsure of date and results. #Paroxysmal atrial fibrillation: Rate controlled. Denies palpitations or chest pain. Continue diltiazem 180 mg daily. Continue Eliquis 5 mg daily. Follows closely with [facility] cardiology, Dr. Delarosa. Recently had cardiac stents [...] regularly with dentist and eye doctor. 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 Up-to-date on all vaccines. She believes she is overdue with mammogram at [facility], plans to schedule. She will be due for repeat colonoscopy with endoscopy August 2025 when she discontinues Plavix. Believes she has had a bone density scan but unsure of date and results. #Paroxysmal atrial fibrillation: Rate controlled. Denies palpitations or chest pain. Continue diltiazem 180 mg daily. Continue Eliquis 5 mg daily. Follows closely with [facility] cardiology, Dr. Delarosa. Recently had cardiac stents [...] Dictation was accomplished with the use of [email or web address] voice recognition software, which is prone to [...] Eliquis 5 mg daily. Follows closely with [facility] cardiology, Dr. Delarosa. Recently had cardiac stents [...] Dictation was accomplished with the use of [email or web address] voice recognition software, which is prone to [...] Eliquis 5 mg daily. Follows closely with [facility] cardiology, Dr. Delarosa. Recently had cardiac stents [...] Dictation was accomplished with the use of [email or web address] voice recognition software, which is prone to medical misidentifications and grammatical errors. This are unintentional and the practitioner does try to identify and correct these, but some could still be present. Please do not hesitate to contact practitioner for clarification. 04/15/2025 Encounter for examination of blood pressure without abnormal findings (ICD-10 - Z01.30) [place] is a 79-year-old female with past medical [...] Eliquis 5 mg daily. Follows closely with [facility] cardiology, Dr. Delarosa. Recently had cardiac stents [...] Dictation was accomplished with the use of [email or web address] voice recognition software, which is prone to [...] disc extrusion. Noted to be admitted to [facility] 05/11/2025 until 05/15/2025 due to concern [...] placed to her neurosurgeon, Dr. Tucker with [facility]. She was cleared for surgery by cardiology. She was referred to pain management due to patient request for morphine however pain management deferred to PCP/neurosurgery. Surgery scheduled 07/22/2025. No bowel or bladder incontinence or saddle anesthesia. #Paroxysmal atrial fibrillation: Regular rhythm. Denies palpitations or chest pain. Continue diltiazem 180 mg daily. Continue Eliquis 5 mg daily. Follows closely with [facility] cardiology, Dr. Delarosa. Recently had cardiac stents [...] Dictation was accomplished with the use of [email or web address] voice recognition software, which is prone to [...] placed to her neurosurgeon, Dr. Tucker with [facility]. She was cleared for surgery by [...] Eliquis 5 mg daily. Follows closely with [facility] cardiology, Dr. Delarosa. Recently had cardiac stents [...] Dictation was accomplished with the use of [email or web address] voice recognition software, which is prone to [...] placed to her neurosurgeon, Dr. Tucker with [facility]. She was cleared for surgery by [...] Eliquis 5 mg daily. Follows closely with [facility] cardiology, Dr. Delarosa. Recently had cardiac stents [...] Dictation was accomplished with the use of [email or web address] voice recognition software, which is prone to [...] placed to her neurosurgeon, Dr. Tucker with [facility]. She was cleared for surgery by [...] Eliquis 5 mg daily. Follows closely with [facility] cardiology, Dr. Delarosa. Recently had cardiac stents [...] Dictation was accomplished with the use of [email or web address] voice recognition software, which is prone to medical misidentifications and grammatical errors. This are unintentional and the practitioner does try to identify and correct these, but some could still be present. Please do not hesitate to contact practitioner for clarification. 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 Tucker with [facility]. She was cleared for surgery by [...] Eliquis 5 mg daily. Follows closely with [facility] cardiology, Dr. Delarosa. Recently had cardiac stents [...] Dictation was accomplished with the use of [email or web address] voice recognition software, which is prone to medical misidentifications and grammatical errors. This are unintentional and the practitioner does try to identify and correct these, but some could still be present. Please do not hesitate to contact practitioner for clarification. 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 Tucker with [facility]. She was cleared for surgery by [...] Eliquis 5 mg daily. Follows closely with [facility] cardiology, Dr. Delarosa. Recently had cardiac stents [...] Dictation was accomplished with the use of [email or web address] voice recognition software, which is prone to [...] placed to her neurosurgeon, Dr. Tucker with [facility]. She was cleared for surgery by [...] Eliquis 5 mg daily. Follows closely with [facility] cardiology, Dr. Delarosa. Recently had cardiac stents [...] Dictation was accomplished with the use of [email or web address] voice recognition software, which is prone to [...] disc extrusion. Noted to be admitted to [facility] 05/11/2025 until 05/15/2025 due to concern [...] placed to her neurosurgeon, Dr. Tucker with [facility]. She was cleared for surgery by cardiology. She was referred to pain management due to patient request for morphine however pain management deferred to PCP/neurosurgery. Surgery scheduled 07/22/2025. No bowel or bladder incontinence or saddle anesthesia. #Paroxysmal atrial fibrillation: Regular rhythm. Denies palpitations or chest pain. Continue diltiazem 180 mg daily. Continue Eliquis 5 mg daily. Follows closely with [facility] cardiology, Dr. Delarosa. Recently had cardiac stents [...] Dictation was accomplished with the use of [email or web address] voice recognition software, which is prone to [...] placed to her neurosurgeon, Dr. Tucker with [facility]. She was cleared for surgery by [...] Eliquis 5 mg daily. Follows closely with [facility] cardiology, Dr. Delarosa. Recently had cardiac stents [...] Dictation was accomplished with the use of [email or web address] voice recognition software, which is prone to [...] disc extrusion. Noted to be admitted to [facility] 05/11/2025 until 05/15/2025 due to concern [...] placed to her neurosurgeon, Dr. Tucker with [facility]. She was cleared for surgery by cardiology. She was referred to pain management due to patient request for morphine however pain management deferred to PCP/neurosurgery. Surgery scheduled 07/22/2025. No bowel or bladder incontinence or saddle anesthesia. #Paroxysmal atrial fibrillation: Regular rhythm. Denies palpitations or chest pain. Continue diltiazem 180 mg daily. Continue Eliquis 5 mg daily. Follows closely with [facility] cardiology, Dr. Delarosa. Recently had cardiac stents [...] Dictation was accomplished with the use of [email or web address] voice recognition software, which is prone to [...] placed to her neurosurgeon, Dr. Tucker with [facility]. She was cleared for surgery by [...] Eliquis 5 mg daily. Follows closely with [facility] cardiology, Dr. Delarosa. Recently had cardiac stents [...] Dictation was accomplished with the use of [email or web address] voice recognition software, which is prone to [...] placed to her neurosurgeon, Dr. Tucker with [facility]. She was cleared for surgery by [...] Eliquis 5 mg daily. Follows closely with [facility] cardiology, Dr. Delarosa. Recently had cardiac stents [...] and magnesium to evaluate for electrolyte abnormalities. #Ojhn's esophagus: Continue following with GI every 6 months. All questions have been answered to patient's satisfaction. Patient verbalized understanding of diagnosis and treatments explained. Advised to call sooner prior to next visit it any questions/concerns arise. Case discussed with collaborating physician Jitendra Okeefe who reviewed the assessment and plan. Chart, medications, labs, vital signs reviewed. Dictation was accomplished with the use of [email or web address] voice recognition software, which is prone to [...] placed to her neurosurgeon, Dr. Tucker with [facility]. She was cleared for surgery by [...] Eliquis 5 mg daily. Follows closely with [facility] cardiology, Dr. Delarosa. Recently had cardiac stents [...] Dictation was accomplished with the use of [email or web address] voice recognition software, which is prone to [...] Provider Name:Katie dumont, 08/24/2025 11:00:00 AM, [address] [facility], [address], [place], [address], Insurance Providers Payer Name Payer Address Payer Phone Subscriber Number Group Number Insured Name Patient Relationship to Insured Coverage Start Date Coverage End Date Medicare Part B [id number] [address] [place] [id number] [place], [place] Self - patient is the insured 1 [employer] [address] [place] [address] [id number] [place], [place] Self - patient is the insured [...]
--- OUTSIDE RECORDS SUMMARY | 2025-08-13 08:25 | XMS_ITS | Data Portability ---
Author Organization [place] - [employer], [employer], [facility] Address [address] [place] [address] Care Team Providers Care Shoe Stitcher Odd Name Role Phone VALENTÍN MINORINE Referring Provider [phone] MAGUI LÓPEZ Referring Provider [phone] MYLES GODWIN Primary Care Provider Assessment Encounter [...] DO Not Attach Compendium, Do Not Delete/merge, [id number] 0 17:37:06 rapid flu (A+B) 2017 018 [email or web address] In-Office Order, Internal Use Only DO Not Attach Compendium DO Not Attach Compendium, Do Not Delete/merge, [id number] 8 08:54:26 Referral None recorded. Procedures None recorded. Surgeries None recorded. Imaging XR, chest - 54888 X-Ray Chest, 2 views (PA/LAT) 2019 REGINALDO [facility] (Interface Testing) DO Not Use, [address] [place], [place], [address], 0 14:43:06 Medication Orders doxycyclin e hyclate 100 mg tablet 2019 020 INTERFACE [facility], [address], [place], [address], 0 17:38:02 ProAir HFA 90 mcg/actuat ion aerosol inhaler 2019 020 INTERFACE [facility], [address], [place], [address], 0 17:39:40 DuoNeb 0.5 mg-3 mg(2.5 mg base)/3 mL solution for nebulizati on 2019 020 [email or web address] Not available 0 15:02:30 prednisone 20 mg tablet 2019 020 INTERFACE [facility], [address], [place], [address], 0 17:45:25 Tessalon Perles 100 mg capsule 2019 020 INTERFACE [facility], [address], [place], [address], 0 17:39:40 Tamiflu 75 mg capsule 2017 018 [email or web address] None - (No Preferred Pharmacy For Patient), [id number] 0 16:58:10 Zithromax Z-Crispin 250 mg tablet 2017 018 [email or web address] None - (No Preferred Pharmacy For Patient), [id number] 0 16:58:13 prednisone 10 mg tablet 2017 018 [email or web address] None - (No Preferred Pharmacy For Patient), [id number] 0 16:58:03 Medrol (Crispin) 4 mg tablets in a dose pack 2013 014 INTERFACE [facility], [address], [place], [address], 4 10:40:31 Silvadene 1 % topical cream 2013 014 [email or web address] [facility], [address], [place], [address], 0 16:58:17 Patient TargetsNo targets recorded. Patient Instructions Encounter Date Encounter Id Patient Instructions Last Modified By Organization Details Last Modified Time 10/24/2019 [id number] Plenty of rest, plenty of fluids. Practice [...] DO Not Attach Compendium, Do Not Delete/merge, [id number] 09/17/2017 19:04:43 09/17/19 18 09/17/2017 rapid flu (A+B) infulenza type B positi ve negati ve Not Available In-Office Order Internal Use Only DO Not Attach Compendium DO Not Attach Compendium, Do Not Delete/merge, [id number] 09/17/2017 19:04:43 10/24/19 20 10/24/2019 rapid flu (A+B) influenza type A positi ve negati ve Not Available In-Office Order Internal Use Only DO Not Attach Compendium DO Not Attach Compendium, Do Not Delete/merge, [id number] 10/24/2019 17:16:01 10/24/19 20 10/24/2019 rapid flu (A+B) infulenza type B negati ve negati ve Not Available In-Office Order Internal Use Only DO Not Attach Compendium DO Not Attach Compendium, Do Not Delete/merge, [id number] 10/24/2019 17:16:01 10/25/19 20 10/24/2019 XR, chest , 2 view No observ ation record ed. [id number] [facility] (Interface Testing) DO Not Use [address] [place] [address] [place], [address], 07/31/2024 19:44:29 10/25/19 20 10/24/2019 XR, chest , 2 view No observ ation record ed. [id number] [facility] (Interface Testing) DO Not Use [address] [place] [address] [place], [address], 07/31/2024 19:44:30 Result Notes None recorded. Problems Name Problem SNOMED Code Status Onset Date Resolution Date Notes Provider Name and Address Organization Details Recorded Time Major depressive disorder [id number] MARIA ALEJANDRA Caceres [address], [place], [address], [facility], [facility] 4 10:32:49 Hyperlipidemia 90319992 MARIA ALEJANDRA Caceres [address], [place], [address], [facility], [facility] 4 10:32:49 Anxiety disorder [id number] MARIA ALEJANDRA Caceres [address], [place], [address], [facility], [facility] 4 10:32:49 Benign essential hypertension [id number] MARIA ALEJANDRA Caceres [address], [place], [address], [facility] 4 10:32:49 Problem Notes None recorded. Procedures Surgical History Date Name Laterality Status Provider Name and Address Organization Details Recorded Time 0 Nebulizer treatment completed MARIA ALEJANDRA EVERETT [address], [place], [address], [facility], [facility] 10/24/2019 17:58:56 Back surgery completed [facility] 11/03/2013 09:52:56 section completed [facility] [place] 11/03/2013 09:52:56 Joint replacement, Knee completed [facility] [place] 11/03/2013 09:52:56 Imaging Results None recorded. Procedure Notes None recorded. Medical Equipment None Reported. Allergies Allergen ID Allergen Name Allergen Category Reaction Reaction Severity Criticality Documentation Date Start Date Code Code System Note Provider Name and Address Organization Details Recorded Time 707479 Byetta medicatio n Not available Not available Not available 11/03/2013 62502 1 RxNorm Kathy Briseno [facility] 4 09:52:56 476851 Glucophag e medicatio n Not available Not available Not available 11/03/2013 46722 7 RxNorm Kathy Elliottson [facility] 4 09:52:56 765993 Zocor medicatio n Not available Not available Not available 11/03/2013 56520 3 RxNorm Kathy Elliottson [facility] 4 09:52:56 Medications Name Sig Start Date [...] 10/23 completed called in to pharmacy per [facility] 09/17/17 pdh Not Available Not Available Not [...] Address Organization Details Last Updated DateTime 8 84734.1 2 g 36.9 kg/m2 160.66 cm 98.6 [degF] 122 /min 20 /min 98 % 118/68 mm[Hg] Antonietta Melton [facility], [facility] 8 18:56:05 Date Recorded Respiratory rate Body weight Body temperature Heart rate Oxygen saturation Systolic And Diastolic Provider Name and Address Organization Details Last Updated DateTime 0 16 /min 993408. 84 g 97.8 [degF] 104 /min 97 % 122/66 mm[Hg] Kimberly Ellington [facility], [facility] 0 17:06:19 Date Recorded Body weight Body height Body mass index (BMI) Body temperature Heart rate Respiratory rate Systolic And Diastolic Provider Name and Address Organization Details Last Updated DateTime 4 505693. 66459 g 160.655 cm 40.8 kg/m2 98.9 [degF] 84 /min 18 /min 142/80 mm[Hg] Kathy Briseno [facility] 4 10:06:01 Social History Question Answer Notes LastModified by Organizat ion Details LastModified Time Tobacco Smoking Status Never Smoker Kathy maciel [facility] 11/03/2013 09:52:56 Alcohol Use No [email or web address] [...] split virus, trivalent, preservative 3 [facility] 10:06:01 Past Encounters Encounter ID Performer Location Encounter Start Date Encounter Closed Date Diagnosis/Indication Diagnosis SNOMED-CT Code Diagnosis ICD10 Code Diagnosis IMO Codes Diagnosis Note [id number] MARIA ALEJANDRA Cevallos [facility] [address] [place] [address] 11/03/2013 09:44:49 11/03/2013 17:51:58 Cellulitis [id number] Contact dermatitis [id number] MARIA ALEJANDRA Lei [facility] [address] [place] [address] 09/17/2017 17:50:25 09/18/2017 20:04:29 Fever 274783132 R50.9 patient alternate Tylenol with ibuprofen every 4 hours. Influenza caused by Influenza B virus 56447111 J10.1 patient instructed to take Tamiflu and Zithromax as directed. Cheratussi n 180 mL's 1-2 teaspoons every 4-6 hours when necessary no refills. Increase fluids. Symptoms not resolving in 7-10 days, patient is to return to the walk-in. [id number] MARIA ALEJANDRA EVERETT ENG [facility] [address] [place] [address] 10/24/2019 16:28:22 10/25/2019 22:09:52 Cough 05491613 R05 Expiratory wheezing 9763 007 R06.2 Pneumonia 288315884 J18. 9 Influenza caused by Influenza A virus 100080228 J09.X2 influenza A positive Health Concerns Section Related Observation LastModified by Organization Detai ls LastModified Time None Recorded Concern Status LastModified by Organization Details LastModified Time None Recorded Advance Directives Directive None Recorded Payers Insurance Date Sequence Insurance Name Policy Number Policy Prabhakar Covered Member ID Prabhakar Member ID Guarantor Name 10/24/2019 2 [facility] - MEDICARE EXTENSION (INDEMNITY) [id number] 2 [place] Jluio Braxton [id number] [place] Braxton 10/24/2019 1 [place] Jul[place] Braxton [id number] [place] Jul[place] Braxton Notes Date Note Type Note [...] changes, or unusual fatigue. MARIA ALEJANDRA Cevallos [address], [place], [address], [facility], [employer] 11/03/2013 10:46:18 09/17/2017 text/html patient comes in with 2 day history of congested cough with sinus congestion, low-grade fever and sore throat. Patient denies nausea, vomiting or diarrhea. MARIA ALEJANDRA Lei [address], [place], [address], [facility], [facility] 09/17/2017 19:52:17 10/24/2019 text/html 74 yr old [...] DM with no relief. MARIA ALEJANDRA EVERETT [address], [place], [address], [facility], [facility] 10/24/2019 18:18:12 OBGyn Episode No OBEpisode recorded.
--- OUTSIDE RECORDS SUMMARY | 2025-08-13 08:25 | XMS_ITS | Patient Health Record ---
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4 degrees Fahrenheit 08/02/2025 Respiratory Rate 16 /min 08/02/2025 Height 5ft 5in in 08/02/2025 Weight 201.2 lbs 08/02/2025 BMI 33.48 kg/m2 08/02/2025 Procedures Procedure Date Ordered Date Performed Result Body Sit e DRAIN/INJECT, SMALL JOINT/BURSA 02/23/2025 N/A DRAIN/INJECT, SMALL JOINT/BURSA 08/02/2025 N/A Encounters Encounter Location Date Provider Diagnosis [facility] [address] 02/23/2025 GIO ONOFRE 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 ; Inflammation of metatarsophalangeal joint M19.079 ; Pain in joint, foot, left M25.572 and PAD (peripheral artery disease) I73.9 [facility] [address] 03/18/2025 GIO ONOFRE 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 Braxton was examined and evaluated. Past medical history reviewed. I also reviewed her recent records from her hospitalization at [facility] where she was found to have a uric acid of 9.2 and JUSTINE on top of CKD. Three weightbearing radiographs of the left foot were taken today. She has edematous soft tissue changes around the dorsomedial aspect of the 1st MTPJ with kenia sign to the medial metatarsal head. 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 She is not on any correction uric acid controlling medications. 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 She is not on any filler leaf cutter long uric acid controlling medications. I discussed with her and her that this is something she needs to discuss with her new PCP or her master certified rv technician so that she does not continue to [...] medical co morbidities. She needs to discuss filler leaf cutter long treatment of her gout flares with her [...] of [place] [address] LESLI HUNT [address] [id number] [place], [place] Self - patient is the insured [facility] [address] [place] [address] [id number] [place], [place] Self - patient is the insured [...] Date(Month/Year) back surgery 07/22/2025 3 days at [facility] for dehyd ration, JUSTINE, and gout of left foot. Uric acid 9.2 02/08/25 back surgery 09/2022 [place]: [facility] 09/2021
--- OUTSIDE RECORDS SUMMARY | 2025-08-13 08:26 | XMS_ITS | Patient Health Record ---
Author Organization [facility] [place] Address [address] [facility] [facility] [address] [place] [address] Care Team Providers Care Elastic Cutter Name Role Phone Gabino Hayward Unavailable [phone] Migration, Provider Unavailable Unavailable Reason For Referral No Information Medications Medication SIG (Take, Route, Frequency, Duration) Notes Start Date End Date Status Ondansetron HCl 4 MG Tablet TAKE 1 TABLE T BY MOUTH EVERY 12 HOURS NEEDED; Duration: 10 Active Encounters Encounter Location Date Provider Diagnosis [facility], [address] [address] 08/25/2024 Provider Migration [facility], [address] [address] 09/01/2024 Provider Migration [facility], [address] [address] 09/01/2024 Gabino Hayward [facility], [address] [address] 09/22/2024 Provider Migration [facility], [address] [address] 10/06/2024 Gabino Hayward [facility], [place] [address] [address] 10/06/2024 Provider Migration [facility], [place] [address] [address] 10/09/2024 Gabino Hayward [facility], [place] [address] [address] 12/02/2024 Gabino Hayward [facility], [place] [address] [address] 12/09/2024 Gabino Hayward [facility], [address] [address] 01/27/2025 Gabino Hayward [facility], [place] [address] [facility] [address] [place] [address] 02/11/2025 Gabino Hayward [facility], [place] [address] [facility] [address] [place] [address] 02/11/2025 Gabino Hayward Plan Of Treatment No Information Insurance Providers Payer Name Payer Address Payer Phone Subscriber Number Group Number Insured Name Patient Relationship to Insured Coverage Start Date Coverage End Date A [employer] [address] [place] [place] [address] [id number] [place], [place] Self - patient is the insured [facility] Indemnity Plan [address] [place] Kinsey [id number] [place], [place] Self - patient is the insured
--- OUTSIDE RECORDS SUMMARY | 2025-08-13 08:26 | XMS_ITS | Clinical Summary ---
Author Organization [facility] Address [address] [place] [address] Phone Care Team Providers Care Supervisor Melt House Name Role Phone Gabino Hayward Jr. Primary Care Provider [phone] Allergies No known active allergies Medications apixaban [...] Orders Only [facility] [address] [address] Shannon Shafer ARNP Stage 3b chronic kidney disease (HCC); Hypertension 05/22/2025 Refill [facility] [address] [address] Shannon Shafer ARNP from Last 3 Months [...] Office Visit [facility] [address] [place] [address] Shannon Shafer ARNP [address] [address] Health Maintenance Due Date Last [...] age to complete this topic Insurance Medicare [employer] Care Teams Supervisor Melt House Relationship Specialty Start Date End Date Gabino Hayward Jr. [address] [place], [place] [address] [place] [address] PCP - General 01/19/25
--- OUTSIDE RECORDS SUMMARY | 2025-08-13 08:26 | XMS_ITS | Encounter Summary ---
Author Organization [facility] Address [address] [place] [address] Care Team Providers Care Twister In Name Role Phone Finn Okeefe MD Primary Care Provider [phone] Encounter Details Date Type Department Care Team (Late st Contact Info) Description 06/25/2024 Lab Requisition [facility] - Main Lab [address] [place] [address] Rogelio Montenegro MD [address] [place] [address] John's esophagus with dysplasia, unspecified Social History [...] Info) Description 09/30/2025 1:10 PM EST Consult [facility] [address] [facility] [address] [place] [address] April Nicole NP [address] [place] [address] [place] [address] documented as of this encounter Procedures Procedure [...] no dysplasia identified. 06/26/2024 4:01 PM EST [facility] at 1601 EST Comment Staff Mechanical Engineer slide(s) from this case have been presented at Anatomic Pathology Intradepartmental Review Conference on 06/26/24. 06/26/2024 4:01 PM EST [facility] Gross Description A. Esophagus, GE junction: Labeled GE junction biopsy. Received in formalin are seven soft, jackson tissue fragments, ranging from 0.1 cm to 0.6 cm in greatest diameters, which are wrapped in paper and submitted in toto in one cassette, seven pieces, multiple levels on one slide. GABBIE 06/26/2024 4:01 PM EST [facility] Disclaimer Unless otherwise specified, all tissue is 10% NB formalin fixed and paraffin embedded. 06/26/2024 4:01 PM [facility] Tissue Esophageal structure / Unknown 06/25/2024 06/25/2024 2:52 PM EST Rogelio Montenegro MD LAB PATHOLOGY ORDERABLES Final Result [facility] [address] [place] [address], documented in this encounter Visit Diagnoses Diagnosis John's esophagus with dysplasia, unspecified documented in this encounter Care Teams Twister In Relationship Specialty Start Date End Date Finn Okeefe MD [address] [place] [address] PCP - General Internal Medicine 06/02/25 documented as of this encounter
--- OUTSIDE RECORDS SUMMARY | 2025-08-13 08:26 | XMS_ITS | Encounter Summary ---
Author Organization [facility] Address [address] [place] [address] Care Team Providers Care Production Superintendent Hydro Name Role Phone Finn Okeefe MD Primary Care Provider [phone] Encounter Details Date Type Department Care Team (Latest Contact Info) Description 09/22/2024 Lab Requisition [facility] - Main Lab [address] [facility] [place] [phone] aGbino Hayward PA 299 [facility] [address] [place] [address] Type 2 diabetes mellitus without complications (CMS/HCC [...] Info) Description 09/30/2025 1:10 PM EST Consult [facility] [address] [facility] [address] [place] [phone] April Nicole, CATERING CHEF [address] [place] [address] [place] [address] documented as of this encounter Procedures Procedure [...] SST tube (09/22/2024 12:00 AM EST) Pathologist [facility] Extra Tube Hold for add-ons. 01/14/2025 7:52 AM EDT [facility] Comment:Auto resulted. Blood Venous blood specimen / Unknown 09/22/2024 09/22/2024 6:27 PM EST us Gabino BESS LAB BLOOD ORDERABLES Final Res ult [facility] [address] [place] [address], [place] [phone] * (ABNORMAL) CBC auto differential (09/22/2024 12:00 AM EST) [facility] WBC 10.6 4.8 - 10.8 K/mcL LAB HEMETOLOGY METHOD 09/22/2024 8:14 PM [facility] RBC 3.60(L) 3.80 - 4.80 M/mcL LAB HEMETOLOGY METHOD 09/22/2024 8:14 PM [facility] Hemoglobin 10.8(L) 11.5 - 16.0 g/dL LAB HEMETOLOGY METHOD 09/22/2024 8:14 PM [facility] Hematocrit 33.2(L) 35.0 - 47.0 % LAB HEMETOLOGY METHOD 09/22/2024 8:14 PM [facility] MCV 92.2 79.0 - 98.0 FL LAB HEMETOLOGY METHOD 09/22/2024 8:14 PM [facility] MCH 30.0 27.0 - 32.0 pcg LAB HEMETOLOGY METHOD 09/22/2024 8:14 PM [facility] MCHC 32.5 32.0 - 37.0 g/dL LAB HEMETOLOGY METHOD 09/22/2024 8:14 PM [facility] RDW 13.1 11.0 - 15.0 % LAB HEMETOLOGY METHOD 09/22/2024 8:14 PM [facility] Platelets 375 130 - 400 K/mcL LAB HEMETOLOGY METHOD 09/22/2024 8:14 PM [facility] MPV 10.2 7.0 - 11.0 FL LAB HEMETOLOGY METHOD 09/22/2024 8:14 PM [facility] NRBC 0.0 <1.0 % LAB HEMETOLOGY METHOD 09/22/2024 8:14 PM [facility] NRBC Absolute 0.00 <0.10 K/mcL LAB HEMETOLOGY METHOD 09/22/2024 8:14 PM [facility] Neutrophils Relative 76.7 % LAB HEMETOLOGY METHOD 09/22/2024 8:14 PM [facility] Lymphocytes Relative 17.4 % LAB HEMETOLOGY METHOD 09/22/2024 8:14 PM [facility] Monocytes Relative 4.2 % LAB HEMETOLOGY METHOD 09/22/2024 8:14 PM [facility] Eosinophils Relative 0.4 % LAB HEMETOLOGY METHOD 09/22/2024 8:14 PM [facility] Basophils Relative 0.8 % LAB HEMETOLOGY METHOD 09/22/2024 8:14 PM [facility] Immature Granulocytes Relative 0.5 % LAB HEMETOLOGY METHOD 09/22/2024 8:14 PM [facility] Neutrophils Absolute 8.15(H) 1.50 - 7.00 K/mcL LAB HEMETOLOGY METHOD 09/22/2024 8:14 PM EST [facility] Lymphocytes Absolute 1.85 1.00 - 5.00 K/[facility] LAB HEMETOLOGY METHOD 09/22/2024 8:14 PM EST [facility] Monocytes Absolute 0.45 0.20 - 1.00 K/[facility] LAB HEMETOLOGY METHOD 09/22/2024 8:14 PM EST [facility] Eosinophils Absolute 0.04 0.00 - 0.50 K/[facility] LAB HEMETOLOGY METHOD 09/22/2024 8:14 PM EST [facility] Basophils Absolute 0.08 0.00 - 0.20 K/[facility] LAB HEMETOLOGY METHOD 09/22/2024 8:14 PM [facility] Immature Granulocytes Absolute 0.05(H) 0.00 - 0.03 K/[facility] LAB HEMETOLOGY METHOD 09/22/2024 8:14 PM [facility] Blood Venous blood specimen / Unknown 09/22/2024 09/22/2024 6:27 PM EST us Gabino BESS LAB BLOOD ORDERABLES Final Res ult [facility] [address] [place] [address], * (ABNORMAL) Urinalysis microscopic only (09/22/2024 12:00 AM EST) RBC, Urine 3.0 0 - 4 /HPF LAB URINALYSIS - AUTOMATED METHOD 09/22/2024 8:05 PM [facility] WBC, Urine 12.1(H) 0 - 4 /HPF LAB URINALYSIS - AUTOMATED METHOD 09/22/2024 8:05 PM [facility] Squamous Epithelial, Urine >100(H) 0 - 60 /LPF LAB URINALYSIS - AUTOMATED METHOD 09/22/2024 8:05 PM [facility] Non-Squamous Epithelial, Urine 10-20 Transitional epithelial cells. /LPF 09/22/2024 8:05 PM [facility] Bacteria, Urine Moderate(A) Negative /HPF LAB URINALYSIS - AUTOMATED METHOD 09/22/2024 8:05 PM [facility] Hyaline Casts, Urine 2.8 0 - 3 /LPF LAB URINALYSIS - AUTOMATED METHOD 09/22/2024 8:05 PM [facility] Urine Urine specimen obtained by clean catch procedure / Unknown 09/22/2024 09/22/2024 6:27 PM EST Gabino BESS LAB URINE ORDERABLES Final Res ult Performing Organization Address [facility]/ZIP Co de Phone Number [facility] [address] [place] [address], [place] [phone] * Thyroid stimulating hormone (09/22/2024 12:00 AM EST) TSH 3.94 0.40 - 4.00 mcIU/mL LAB CHEMISTRY METHOD 09/22/2024 7:21 PM [facility] Blood Venous blood specimen / Unknown 09/22/2024 09/22/2024 6:27 PM EST Gabino BESS LAB BLOOD ORDERABLES Final Res ult [facility] [address] [place] [address], [place] [phone] * Thyroxine free (09/22/2024 12:00 AM EST) Free T4 1.19 0.70 - 1.80 ng/dL LAB CHEMISTRY METHOD 09/22/2024 7:21 PM [facility] Blood Venous blood specimen / Unknown 09/22/2024 09/22/2024 6:27 PM EST Gabino BESS LAB BLOOD ORDERABLES Final Res ult [facility] [address] [place] [address], [place] [phone] * Hemoglobin A1c (09/22/2024 12:00 AM EST) Pathologist [facility] Hemoglobin A1C 5.3 <6.5 % LAB CHEMISTRY METHOD 09/23/2024 12:41 PM EST [facility] Mean Bld Glu Estim. 105 mg/dL LAB CHEMISTRY METHOD 09/23/2024 12:41 PM [facility] Blood Venous blood specimen / Unknown 09/22/2024 09/22/2024 6:27 PM EST Gabino BESS LAB BLOOD ORDERABLES Final Res ult Performing Organization Address City/[facility]/ZIP Co de Phone Number [facility] [address] [place] [address], [place] [phone] * (ABNORMAL) Comprehensive metabolic panel (09/22/2024 12:00 AM EST) Pathologist [facility] Sodium 138 133 - 145 mmol/L LAB CHEMISTRY METHOD 09/22/2024 7:22 PM [facility] Potassium 4.1 3.5 - 5.5 mmol/L LAB CHEMISTRY METHOD 09/22/2024 7:22 PM [facility] Chloride 101 96 - 110 mmol/L LAB CHEMISTRY METHOD 09/22/2024 7:22 PM [facility] CO2 31 21 - 32 mmol/L LAB CHEMISTRY METHOD 09/22/2024 7:22 PM [facility] Anion Gap 6 3 - 11 LAB CHEMISTRY METHOD 09/22/2024 7:22 PM [facility] Glucose 102(H) 70 - 100 mg/dL LAB CHEMISTRY METHOD 09/22/2024 7:22 PM [facility] BUN 25 5 - 25 mg/dL LAB CHEMISTRY METHOD 09/22/2024 7:22 PM [facility] Creatinine 1.22(H) 0.50 - 1.10 mg/dL LAB CHEMISTRY METHOD 09/22/2024 7:22 PM [facility] eGFR 46(L) >=60 mL/min/1. 73m2 LAB CHEMISTRY METHOD 09/22/2024 7:22 PM [facility] Comment:Calculation based on the Chronic Kidney Disease Epidemiology Collaboration (CKD-EPI) equation refit without adjustment for race. BUN/Creatinine Ratio 20.5 LAB CHEMISTRY METHOD 09/22/2024 7:22 PM [facility] Calcium 10.5 8.5 - 10.5 mg/dL LAB CHEMISTRY METHOD 09/22/2024 7:22 PM [facility] AST (SGOT) 16 10 - 42 unit/L LAB CHEMISTRY METHOD 09/22/2024 7:22 PM [facility] ALT (SGPT) 17 10 - 60 unit/L LAB CHEMISTRY METHOD 09/22/2024 7:22 PM [facility] Alkaline Phosphatase 156(H) 42 - 121 unit/L LAB CHEMISTRY METHOD 09/22/2024 7:22 PM [facility] Total Protein 6.7 6.0 - 8.0 g/dL LAB CHEMISTRY METHOD 09/22/2024 7:22 PM [facility] Albumin 3.8 3.2 - 5.0 g/dL LAB CHEMISTRY METHOD 09/22/2024 7:22 PM [facility] Total Bilirubin 0.3 0.0 - 1.4 mg/dL LAB CHEMISTRY METHOD 09/22/2024 7:22 PM [facility] Blood Venous blood specimen / Unknown 09/22/2024 09/22/2024 6:27 PM EST us Gabino BESS LAB BLOOD ORDERABLES Final Res ult [facility] [address] [place] [address], documented in this encounter Visit Diagnoses Diagnosis Type 2 diabetes mellitus without complications (CMS/HCC V24, CMS/HCC V28) Interstitial cystitis (chronic) without hematuria Pain in unspecified joint Chronic fatigue, unspecified Other retention of urine documented in this encounter Care Teams Production Superintendent Hydro Relationship Specialty Start Date End Date Finn Okeefe MD [address] [place] [phone] PCP - General Internal Medicine 06/02/25 documented as of this encounter
--- OUTSIDE RECORDS SUMMARY | 2025-08-13 08:26 | XMS_ITS | Clinical Summary ---
Author Organization [facility] Address [address] [place] [address] Care Team Providers Care Construction Administrator Name Role Phone Cm Magallanes Primary Care [...] age to complete this topic Insurance MEDICARE [facility] Care Teams Construction Administrator Relationship Specialty Start Date End Date Cm Magallanes [address] [place] [phone] PCP - General 03/07/17
--- OUTSIDE RECORDS SUMMARY | 2025-08-13 08:26 | XMS_ITS | Clinical Summary ---
Author Organization [facility] [employer] [facility] Address [address] [facility] [place] [address] Phone Care Team Providers Care Retail Marketing Specialist Name Role Phone Finn Okeefe MD Primary Care Provider [phone] Allergies Active Allergy Reactions Criticality Noted Date [...] test. She will be referred to a applications processor as well. Orders: Nuclear stress test with [...] and Eliquis for stroke risk reduction. Her SAR6TM4-RDIg score is 8. She continues on 5 mg twice daily based on her age, weight and kidney function. ECG today showing NSR. Assessment & Plan (11/20/2024 11:52 AM EDT): Patient with history of paroxysmal atrial fibrillation seen on ILR. ILR implanted due to history of a stroke. She continues on diltiazem for rate control and Eliquis for stroke risk reduction. Her UOO0FG4-CBMh score is 8. 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 (Primary Dx); Paroxysmal atrial fibrillation (CMS/HCC V24, CMS/HCC V28); Hypertension, unspecified type; Hyperlipidemia, unspecified hyperlipidemia type; Stenosis of right carotid artery 05/31/2025 8:36 AM EDT - 05/31/2025 11:59 PM EDT Hospital Encounter [facility] Ultrasound [address] [place] [address] Thyroid nodule Discharge Disposition: Home or Self Care 05/26/2025 Telephone [facility] [address] [facility] [address] [place] [address] Kelly Malone NP 05/18/2025 12:40 PM EDT Ancillary Procedure [facility] - [address] [place] [phone] from Last 3 Months Surgical History Surgery Date Site/Laterality Comments OTHER SURGICAL HISTORY 02/13/2022 PROCEDURE: [place] EGD PARTIAL/COMPL ESOPHAGOGASTRIC FUNDOPLASTY OTHER SURGICAL HISTORY PROCEDURE: [place] ARTHRODESIS POSTERIOR/PSTLAT TQ 1NTRSPC LUMBAR CARDIAC CATHETERIZATION DONE ON 09/08/2024 AT [facility] INDICATIONS: Abnormal nuclear perfusion study CORONARY ANGIOPLASTY [...] Info) Description 09/30/2025 1:10 PM EST Consult [facility] - [address] [facility] [address] [place] [address] April Nicole NP [address] [place] [address] [place] [address] Health Maintenance Due Date Last Done Comments [...] this topic Medical Devices Implanted Type Area Health Professor Device Identifier Shelf Expiration Date Model / Serial / Lot Bsci-Crm [id number] Implanted:05/20 (Quantity not on file) Cardiac Loop Recorder [employer] CARD RHYTHM MGMT [id number] / [id number] / Procedures Procedure Name Priority Date/Time Associated [...] 8:27 AM EDT Coronary artery disease involving kletsel dehe wintun heart with angina pectoris, unspecified vessel or lesion type ([facility] V24) HEMOGLOBIN A1C Routine 09/22/2024 12:00 AM EST Type 2 diabetes mellitus without complications ([facility]) Interstitial cystitis (chronic) without hematuria Pain in [...] period is included. Date Time Interrogation Session [id number] CV DEVICE CHECK Type Interrogation Session Remote Scheduled CV DEVICE CHECK Implantable Pulse Generator Health Professor BSX CV DEVICE CHECK Implantable Pulse Generator Type ILR CV DEVICE CHECK Implantable Pulse Generator Model M301 CV DEVICE CHECK Implantable Pulse Generator Serial Number [id number] CV DEVICE CHECK Implantable Pulse Generator Implant Date [id number] CV DEVICE CHECK Battery Status Beginning of Service CV DEVICE CHECK Atrial Tachy Statistic AT/AF Graham Percent 1.00 CV DEVICE CHECK Date of [...] Heart Rate Histograms reviewed Narrative Procedure Note aCrmelo Nowak MD - 06/10/2025 IMPRESSION: Normal Remote: [...] in [place] ([id number]) -------- FINAL REPORT -------- Dictated By: Daniela Khan Dictated Date: 06/07/2025 15:18 ET Assigned Physician: Daniela Khan Reviewed and Electronically Signed By: Daniela Khan Signed Date: 06/07/2025 15:21 ET Workstation ID: [id number] Transcribed By: Self Edit Transcribed Date: 06/07/2025 [...] nodule inthe left thyroid lobe. Telekriss BESS ([id number]) -------- FINAL REPORT -------- Dictated By: Daniela Khan Dictated Date: 06/07/2025 15:18 ET Assigned Physician: Daniela Khan Reviewed and Electronically Signed By: Daniela Khan Signed Date: 06/07/2025 15:21 ET Workstation ID: [id number] Transcribed By: Self Edit Transcribed Date: 06/07/2025 15:18 ET us Criss BESS IMG US PROCEDURES Final Resu lt * (ABNORMAL) Basic metabolic panel (12/02/2024 11:51 AM EDT) Sodium 138 133 - 145 mmol/L LAB CHEMISTRY METHOD 12/02/2024 12:33 PM EDT [facility] Potassium 3.8 3.5 - 5.5 mmol/L LAB CHEMISTRY METHOD 12/02/2024 12:33 PM [facility] Chloride 103 96 - 110 mmol/L LAB CHEMISTRY METHOD 12/02/2024 12:33 PM [facility] CO2 28 21 - 32 mmol/L LAB CHEMISTRY METHOD 12/02/2024 12:33 PM [facility] Anion Gap 7 3 - 11 LAB CHEMISTRY METHOD 12/02/2024 12:33 PM [facility] Glucose 93 70 - 100 mg/dL LAB CHEMISTRY METHOD 12/02/2024 12:33 PM [facility] BUN 23 5 - 25 mg/dL LAB CHEMISTRY METHOD 12/02/2024 12:33 PM [facility] Creatinine 1.27(H) 0.50 - 1.10 mg/dL LAB CHEMISTRY METHOD 12/02/2024 12:33 PM [facility] eGFR 43(L) >=60 mL/min/1. 73m2 LAB CHEMISTRY METHOD 12/02/2024 12:33 PM [facility] Comment:Calculation based on the Chronic Kidney Disease Epidemiology Collaboration (CKD-EPI) equation refit without adjustment for race. BUN/Creatinine Ratio 18.1 LAB CHEMISTRY METHOD 12/02/2024 12:33 PM [facility] Calcium 9.9 8.5 - 10.5 mg/dL LAB CHEMISTRY METHOD 12/02/2024 12:33 PM [facility] Blood Venous blood specimen / Unknown Venipuncture / Unknown 12/02/2024 11:51 AM EDT 12/02/2024 12:00 PM EDT us Dandre Salas DO LAB BLOOD ORDERABLES Final Result [facility] [address] [place] [address], * (ABNORMAL) Lipid panel (11/13/2024 8:27 AM [...] 11:06 PM EDT Performed at: - [facility] [address] [id number] Director Blood Bank: Nikki Valle MD, Phone: [phone] us Kelly Malone SALES DEMONSTRATOR LAB BLOOD ORDERABLES Final Res ult Performing Organization Address City/[facility]/ZIP Co de Phone Number [id number] 1 * Hemoglobin A1c (09/22/2024 12:00 AM EST) Hemoglobin A1C 5.3 <6.5 % LAB CHEMISTRY METHOD 09/23/2024 12:41 PM EST [facility] Mean Bld Glu Estim. 105 mg/dL LAB CHEMISTRY METHOD 09/23/2024 12:41 PM EST [facility] Blood Venous blood specimen / Unknown 09/22/2024 09/22/2024 6:27 PM EST us Gabino BESS LAB BLOOD ORDERABLES Final Res ult Performing Organization Address City/[facility]/ZIP Co de Phone Number [facility] [address] [place] [address], [place] [phone] * MAYDA DEXA AXIAL SKELETON (08/06/2023 3:34 PM EST) Anatomical Region Laterality Modality Mammography 08/06/2023 1:47 PM EST Narrative 08/06/2023 3:34 PM EST [facility] Diagnostic Imaging Department [address] [place] [address] Patient: ALANISSTARR AGUIRRE Julio /Age/Sex: 1945 - 78 - F Unit#: [id number] Location/Status: SPDIMAM/REG CLI Mnemonic/Ordering Site: MAMDEXAAX/SPMAM Ordering Physician: MYLES MAGALLANES MD Mayda Dexa Axial Skeleton - 08/06/23 Report Status:Signed History: Low estrogen state due to menopause. Personal history of fracture. Findings: Bone densitometry is performed utilizing dual energy x-ray absorptiometry (DXA) in the [employer] unit. The lumbar spine and proximal femora [...] 25.1 percent Hip 7.8 percent. IMPRESSION: Osteoporosis. [id number] Dictating Physician: DANIELA KHAN MD Electronically Signed by: DANIELA KHAN MD Dic Date/Time: 08/06/231533 Sign date/Time: 08/06/231533 Procedure Note Daniela Khan MD - 09/24/2023 [facility] Diagnostic Imaging Department [address] [place] [address] Patient: STARR HOBBS Julio /Age/Sex: 1945 - 78 - F Unit#: [id number] Location/Status: SPDIMAM/REG CLI Mnemonic/Ordering Site: MAMDEXAAX/SPMAM Ordering Physician: MYLES MAGALLANES MD Mayda Dexa Axial Skeleton - 08/06/23 - [id number] Report Status:Signed History: Low estrogen state due to menopause. Personal history offracture. Findings: Bone densitometry is performed utilizing dual energy x-ray absorptiometry(DXA) in the [employer] unit. The lumbar spine and proximal femora [...] 25.1 percent Hip 7.8 percent. IMPRESSION: Osteoporosis. [id number] Dictating Physician: DANIELA KHAN MD Electronically Signed by: DANIELA KHAN MD Dic Date/Time: 08/06/231533 Sign date/Time: 08/06/231533 Myles Magallanes MD IMG BI PROCEDURES Final Res ult from Last 3 Months or Most Recently Relevant to Health Maintenance Insurance MEDICARE [facility] Care Teams Retail Marketing Specialist Relationship Specialty Start Date End Date Finn Okeefe MD [address] [place] [address] [place] [phone] PCP - General Internal Medicine 06/02/25
== END 2025-08-11 08:23 | disposition home or self-care (01) ==
LOC: HO.HOSX 08:22
PROVIDERS: Visit Provider Physician Assistant
DX: Z98.890 Other specified postprocedural states (principal); M51.26 Other intervertebral disc displacement, lumbar region
CPT/HCPCS: 72110; 99212

== ENCOUNTER 2025-08-11 08:49 | Outpatient (AMB) | payer MEDICARE, OTHER, SELFPAY ==
--- OUTSIDE RECORDS SUMMARY | 2024-07-23 09:45 | XMS_ITS ---
Author Organization [facility], [place] Address [address] [facility] [address] [place] [address] Care Team Providers Care Painter And Paperhanger Apprentice Name Role Phone Migration, Provider Unavailable Unavailable REASON FOR VISIT Follow-up Appt Encounters Encounter Location Date Provider Diagnosis [facility], [address] [place] [phone] 07/23/2024 Provider Migration Plan Of Treatment No Information Progress Notes * SINA HOBBSDOB:[birth year] (80 yo F)Acc No.[id number]:07/23/2024 Progress Notes Patient: SINA HONG Provider: Xavier Yañez :1945 A ge:79 Y S ex:Female Date:07/23/2024 Address:[address] [place], [place] [phone] Subjective: * Chief Complaints: * F ollow-up Appt * Ocular Surgical History: Objective: Vision Examination: * Electronic signature of Prov ider Migration on 08/11/2025 at 08:55 AM EST Sign off status: Pending * Provider: Xavier decker Migration Date: 09/23/2023 Generated for Armond hudson/Lucina/eTbrycesmitting on: 10/12/2024 08:55 AM EST
--- OUTSIDE RECORDS SUMMARY | 2024-08-25 05:30 | XMS_ITS ---
Author Organization [facility], [place] Address [address] [facility] [address] [place] [address] Care Team Providers Care Journalism Internship Name Role Phone Migration, Provider Unavailable Unavailable REASON FOR VISIT Follow-up Appt Encounters Encounter Location Date Provider Diagnosis [facility], [address] [place] [phone] 08/25/2024 Provider Migration Plan Of Treatment No Information Progress Notes * SINA HOBBSDOB:[birth year] (80 yo F)Acc No.[id number]:08/25/2024 Progress Notes Patient: SINA HONG Provider: Xavier Yañez :1945 A ge:79 Y S ex:Female Date:08/25/2024 Address:[address] [place], [place] [phone] Subjective: * Chief Complaints: * F ollow-up Appt * Ocular Surgical History: Objective: Vision Examination: * Electronic signature of Prov ider Migration on 08/11/2025 at 08:54 AM EST Sign off status: Pending * Provider: Xavier decker Migration Date: 0 08/25/2024 Generated for Armond hudson/Lucina/eTransmitting on: 10/12/2024 08:54 AM EST
--- OUTSIDE RECORDS SUMMARY | 2024-09-01 10:30 | XMS_ITS ---
Author Organization [facility], [place] Address [address] [facility] [address] [place] [address] Care Team Providers Care Executive Personal Assistant Name Role Phone Migration, Provider Unavailable Unavailable REASON FOR VISIT Follow-up Appt Encounters Encounter Location Date Provider Diagnosis [facility], [address] [place] [phone] 09/01/2024 Provider Migration Plan Of Treatment No Information Progress Notes * SINA HOBBSDOB:[birth year] (80 yo F)Acc No.[id number]:09/01/2024 Progress Notes Patient: SINA HONG Provider: Xavier Yañez :1945 A ge:79 Y S ex:Female Date:09/01/2024 Address:[address] [place], [place] [phone] Subjective: * Chief Complaints: * F ollow-up Appt * Ocular Surgical History: Objective: Vision Examination: * Electronic signature of Prov ider Migration on 08/11/2025 at 08:54 AM EST Sign off status: Pending * Provider: Xavier decker Migration Date: 0 09/01/2024 Generated for Armond hudson/Lucina/eTransmitting on: 10/12/2024 08:54 AM EST
--- OUTSIDE RECORDS SUMMARY | 2024-09-01 10:30 | XMS_ITS ---
Author Organization [facility], [place] Address [address] [facility] [address] [place] [address] Care Team Providers Care Ground Surveillance Systems Operator Name Role Phone Gabino Hayward Unavailable [phone] REASON FOR VISIT Follow-up Appt Encounters Encounter Location Date Provider Diagnosis [facility], [address] [place] [address] 09/01/2024 Gabino Hayward Plan Of Treatment No Information Progress Notes * SINA HOBBSDOB:[birth year] (80 yo F)Acc No.[id number]:09/01/2024 Progress Notes Patient: SINA HONG Provider: Raven BESS :1945 A ge:79 Y S ex:Female Date:09/01/2024 Address:[address] [place], [place] [phone] Subjective: * Chief Complaints: * F ollow-up Appt * Ocular Surgical History: Objective: Vision Examination: * Electronic signature of Boo Hayward PA-C on 08/11/2025 at 08:55 AM EST Sign off status: Pending * Provider: Raven BESS Date: 0 09/01/2024 Generated for Laii becca/Lucina/eTransmitting on: 10/12/2024 08:55 AM EST
--- OUTSIDE RECORDS SUMMARY | 2024-09-22 05:30 | XMS_ITS ---
Author Organization [facility], [place] Address [address] [facility] [address] [place] [address] Care Team Providers Care Injection Press Operator Name Role Phone Migration, Provider Unavailable Unavailable REASON FOR VISIT Sick Visit Encounters Encounter Location Date Provider Diagnosis [facility], [address] [place] [phone] 09/22/2024 Provider Migration Plan Of Treatment No Information Progress Notes * SINA HOBBSDOB:[birth year] (80 yo F)Acc No.[id number]:09/22/2024 Progress Notes Patient: SINA HONG Provider: Xavier Yañez :1945 A ge:79 Y S ex:Female Date:09/22/2024 Address:[address] [place], [place] [phone] Subjective: * Chief Complaints: * S ick Visit * Ocular Surgical History: Objective: Vision Examination: * Electronic signature of Prov ider Migration on 08/11/2025 at 08:54 AM EST Sign off status: Pending * Provider: Xavier decker Migration Date: 0 09/22/2024 Generated for Armond hudson/Lucina/eTbrycesmitting on: 1 10/12/2024 08:54 AM EST
--- OUTSIDE RECORDS SUMMARY | 2024-10-06 09:15 | XMS_ITS ---
Author Organization [facility], [place] Address [address] [facility] [address] [place] [address] Care Team Providers Care Hotel Or Motel Cleaning Supervisor Name Role Phone Gabino Hayward Unavailable [phone] REASON FOR VISIT Follow-up Appt Encounters Encounter Location Date Provider Diagnosis Formerly [facility], [address] [place] [phone] 10/06/2024 Gabino Hayward Plan Of Treatment No Information Progress Notes * SINA HOBBSDOB:[birth year] (80 yo F)Acc No.[id number]:10/06/2024 Progress Notes Patient: SINA HONG Provider: Raven BESS :1945 A ge:79 Y S ex:Female Date:10/06/2024 Address:[address] [place], [place] [phone] Subjective: * Chief Complaints: * F ollow-up Appt * Ocular Surgical History: Objective: Vision Examination: * Electronic signature of Boo Hayward PA-C on 08/11/2025 at 08:55 AM EST Sign off status: Pending * Provider: Raven BESS Date: 0 10/06/2024 Generated for Armond hudson/Lucina/eTransmitting on: 1 10/12/2024 08:55 AM EST
--- OUTSIDE RECORDS SUMMARY | 2024-10-06 09:15 | XMS_ITS ---
Author Organization [facility], [place] Address [address] [facility] [address] [place] [address] Care Team Providers Care Diesel Electrician Name Role Phone Migration, Provider Unavailable Unavailable REASON FOR VISIT Follow-up Appt Encounters Encounter Location Date Provider Diagnosis [facility], [address] [place] [phone] 10/06/2024 Provider Migration Plan Of Treatment No Information Progress Notes * SINA HOBBSDOB:[birth year] (80 yo F)Acc No.[id number]:10/06/2024 Progress Notes Patient: SINA HONG Provider: Xavier Yañez :1945 A ge:79 Y S ex:Female Date:10/06/2024 Address:[address] [place], [place] [phone] Subjective: * Chief Complaints: * F ollow-up Appt * Ocular Surgical History: Objective: Vision Examination: * Electronic signature of Prov ider Migration on 08/11/2025 at 08:54 AM EST Sign off status: Pending * Provider: Xavier decker Migration Date: 0 10/06/2024 Generated for Armond hudson/Lucina/eTbrycesmitting on: 1 10/12/2024 08:54 AM EST
--- OUTSIDE RECORDS SUMMARY | 2024-10-09 04:30 | XMS_ITS ---
Author Organization [facility], [place] Address [address] [facility] [address] [place] [address] Care Team Providers Care Manager Placement Name Role Phone Gabino Hayward Unavailable [phone] REASON FOR VISIT Follow-up Appt Encounters Encounter Location Date Provider Diagnosis [facility], [address] [place] [phone] 10/09/2024 Gabino Hayward Plan Of Treatment No Information Progress Notes * SINA HOBBSDOB:[birth year] (80 yo F)Acc No.[id number]:10/09/2024 Progress Notes Patient: SINA HONG Provider: Raven BESS :1945 A ge:79 Y S ex:Female Date:10/09/2024 Address:[address] [place], [place] [phone] Subjective: * Chief Complaints: * F ollow-up Appt * Ocular Surgical History: Objective: Vision Examination: * Electronic signature of Boo Hayward PA-C on 08/11/2025 at 08:53 AM EST Sign off status: Pending * Provider: Raven BESS Date: 0 10/09/2024 Generated for Armond hudson/Lucina/eTransmitting on: 1 10/12/2024 08:53 AM EST
--- OUTSIDE RECORDS SUMMARY | 2024-12-02 05:00 | XMS_ITS ---
Author Organization [facility], [place] Address [address] [facility] [address] [place] [address] Care Team Providers Care Behavioral Health Rn Name Role Phone Gabino Hayward Unavailable [phone] REASON FOR VISIT Follow-up Appt Encounters Encounter Location Date Provider Diagnosis [facility], [address] [place] [phone] 12/02/2024 Gabino Hayward Plan Of Treatment No Information Progress Notes * SINA HOBBSDOB:[birth year] (80 yo F)Acc No.[id number]:12/02/2024 Progress Notes Patient: SINA HONG Provider: Raven BESS :1945 A ge:79 Y S ex:Female Date:12/02/2024 Address:[address] [place], [place] [phone] Subjective: * Chief Complaints: * F ollow-up Appt * Ocular Surgical History: Objective: Vision Examination: * Electronic signature of Boo Hayward PA-C on 08/11/2025 at 08:55 AM EST Sign off status: Pending * Provider: Raven BESS Date: 0 12/02/2024 Generated for Laii becca/Lucina/eTransmitting on: 1 10/12/2024 08:55 AM EST
--- OUTSIDE RECORDS SUMMARY | 2024-12-09 10:00 | XMS_ITS ---
Author Organization [facility] [place] Address [address] [facility] [address] [place] [address] Care Team Providers Care Tank Shop Supervisor Name Role Phone Gabino Hayward Unavailable [phone] REASON FOR VISIT Follow-up Appt Encounters Encounter Location Date Provider Diagnosis [facility], [address] [place] [phone] 12/09/2024 Gabino Hayward Plan Of Treatment No Information Progress Notes * SINA HOBBSDOB:[birth year] (80 yo F)Acc No.[id number]:12/09/2024 Progress Notes Patient: SINA HONG Provider: Raven BESS :1945 A ge:79 Y S ex:Female Date:12/09/2024 Address:[address] [place], [place] [phone] Subjective: * Chief Complaints: * F ollow-up Appt * Ocular Surgical History: Objective: Vision Examination: * Electronic signature of Boo Hayward PA-C on 08/11/2025 at 08:55 AM EST Sign off status: Pending * Provider: Raven BESS Date: 0 12/09/2024 Generated for Laii becca/Lucina/eTransmitting on: 1 10/12/2024 08:55 AM EST
--- OUTSIDE RECORDS SUMMARY | 2025-05-19 08:30 | XMS_ITS ---
Author Organization [facility] [address] Address [address] [place] [address] Care Team Providers Care Registered Respiratory Therapist Name Role Phone Criss Churchill Unavailable [phone] Encounters Encounter Location Date Provider Diagnosis [facility] [address] [place] [address] 05/19/2025 Criss Churchill Plan Of Treatment Next Appt Details Provider Name:Criss dumont, 08/24/2025 11:00:00 AM, [address], [address], [place], [address], Progress Notes * Starr BRAXTONDOB:[birth year] (80 yo F)Acc No.[id number]:05/19/2025 Progress Notes Patient: Starr Gfafney Provider: Kimberly Churchill PA-C :1945 A ge:80 Y S ex:Female Date:05/19/2025 Address:[address] [place], [place] Care Plan Details* * Electronic signature of Zita Churchill PA-C on 08/11/2025 at 08:53 AM EST Sign off status: Pending * Provider: Kimberly Churchill PA-C Date: Generated for Armond ng/Falog/eTransmitting on: 10/12/2024 08:53 AM EST
--- OUTSIDE RECORDS SUMMARY | 2025-06-14 06:00 | XMS_ITS ---
Author Organization [facility] Address [address] [place] [address] Care Team Providers Care Manager Of Administration Name Role Phone Criss Churchill Unavailable [phone] LULMATIAS ESCOBAR Unavailable [phone] REASON FOR VISIT pt presents for nurse [...] Diagnosis [facility] [address] [place] [address] 06/14/2025 MATIAS TOWNSEND Ear fullness, left H93.8X2 and Ear fullness, right H93.8X1 Assessments Encounter Date Diagnosis (ICD Code) Assessment Notes Treatment Notes Treatment Clinical Notes Section Notes 06/14/2025 Ear fullness, left (ICD-10 - H93.8X2) 06/14/2025 Ear fullness, right (ICD-10 - H93.8X1) Plan Of Treatment Pending Test Test Name Order Date [facility]PC Ear Lavage 06/14/2025 Next Appt Details Provider Name:Criss dumont, 08/24/2025 11:00:00 AM, [address] [place] [address], [phone], Progress Notes * Starr BRAXTONDOB:[birth year] (80 yo F)Acc No.[id number]:06/14/2025 Progress Note Patient: Starr Gaffney Provider: Gloria TOWNSEND NP :1945 A ge:80 Y S ex:Female Date:06/14/2025 [facility], [facility] Subjective: * Chief Complaints: * P t [...] WAX UNI Billing Information: * Procedure Codes: 53830 REMOVE IMPACTED EAR WAX UNI. Care Plan Details* * Electronic signature of GHASSAN TOWNSEND on 08/11/2025 at 08:55 AM EST Sign off status: Pending * Provider: Gloria TOWNSEND NP Date: Generated for Armond hudson/Lucina/eTransmitting on: 1 10/12/2024 08:55 AM EST
--- NOTE | 2025-08-11 08:52 | HO.SPINEOV ---
Intake Visit Reasons: 1st post op Intake Note: Ms. Braxton is here today for her 1st post op. Coding Assistant Required: No Allergies exenatide (From Byetta) Allergy (Intermediate, Verified 07/08/25 12:03) Nausea metformin (From Glucophage) Allergy (Intermediate, Verified 07/08/25 12:03) Nausea rosuvastatin (From Crestor) Allergy (Intermediate, Verified 07/08/25 12:03) Nausea sertraline (From Zoloft) Allergy (Intermediate, Verified 07/08/25 12:03) Nausea simvastatin (From Zocor) Allergy (Intermediate, Verified 07/08/25 12:03) Nausea Assessment & Plan Assessment & Plan (1) Status post lumbar spine surgery for decompression of spinal cord: Code(s): Z98.890 - Other specified postprocedural states Category: Medical Plan Procedure: L2-3 laminotomy Starr is a pleasant 80 year old female who comes in today for her 1st postoperative visit after having the above mentioned procedure completed by Dr. Tucker. To recap she has called the clinic reporting quite a bit of pain in the immediate postoperative. She was prescribed a course of Hydromorphone by MARIA ALEJANDRA Bellamy, but has not as of yet used her previous Oxycodone Rx. She also trialed a course of prednisone, which he states was extremely helpful for her pain. She reports that the pain that she is feeling today is primarily right lateral/anterior thigh pain with a component of left-sided thigh pain as well. She reports that this pain seems different than the pain that she had prior to surgery, however upon review of her previous office visit notes this sounds like he had a very similar pain to what she had preoperatively. She states the pain is worse 1st thing in the morning, however seems to lessen up slightly throughout the day. She has been taking her gabapentin and Tylenol throughout the day to help mitigate some of her symptoms. I reviewed the x-ray imaging that she had completed prior to this visit which shows no evidence of instability. No new neurological deficits. The patient ambulates well and rises from a seated position without difficulty. She uses no assistive devices to ambulate. Her posterior incision site is closed and well healing with slight edema noted around the incision site. This area is non-painful to palpation. With no signs of erythema or drainage. We extensively discussed how this is likely pain that is secondary to postoperative inflammation, especially considering her good improvement of pain with prednisone taper. She did request a another round of prednisone, however I am concerned that if we would refill this again for her it will suppress the immune system and prevent tissue healing. Therefore I encouraged her to utilize ice/heat, [id number] medications, her gabapentin prescription, and her oxycodone prescription for the time being. I would like to have her follow up with us again in 6 weeks for her 2nd postoperative visit. Royer Tucker MD,PhD [facility] Coding Level of Care Code Global (40243) Diagnoses Status post lumbar spine surgery for decompression of spinal cord Z98.890
--- OUTSIDE RECORDS SUMMARY | 2025-08-11 08:53 | XMS_ITS | Patient Health Record ---
Author Organization [facility] Address [address] [place] [address] Care Team Providers Care Stable Cleaner Name Role Phone Casie Nation Unavailable [phone] Reason For Referral No Information Medications Medication SIG (Take, Route, Frequency, Duration) Notes Start Date End Date Status hydroCHLOROthiazide 25mg 1 ORAL daily; Duration: -3 [facility]- 07/28/2013 Active Lisinopril 30MG 1 ORAL daily; Duration: -3 [facility]- 013 Active Remeron 45MG 1 ORAL at bedtime; Duration: -3 [facility]- 07/28/2013 Active Requip 0.25MG 1-2 ORAL at bedtime; Duration: -3 Guy- 07/28/2013 Active Problems Problem Type SNOMED Code ICD Code Onset Dates Problem Status W/U Status Risk Notes Problem 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 Major Problem Hyperlipidemia (15353998) Other and unspecified hyperlipidemia (272.4) Active confirmed Major Problem Depressive disorder (48432792) Depressive disorder, not elsewhere classified (311) Active confirmed Major Problem Benign essential hypertension (4784431) Essential hypertension, benign (401.1) Active confirmed Major Plan Of Treatment No Information Insurance Providers Payer Name Payer Address Payer Phone Subscriber Number Group Number Insured Name Patient Relationship to Insured Coverage Start Date Coverage End Date MEDICARE [address] LESLI LOERA [id number] [phone] [id number] [place] Self - patient is the insured 1 [facility] INDEMNITY PLAN [address] [place], [place] [id number] [place] Self - patient is the insured
--- OUTSIDE RECORDS SUMMARY | 2025-08-11 08:54 | XMS_ITS | Data Portability ---
Author Organization [place] - [employer], [employer] [facility] Address [address] [place] [address] Care Team Providers Care Dog Walker Name Role Phone VALENTÍN MINORINE Referring Provider [phone] MAGUI LÓPEZ Referring Provider MYLES GODWIN Primary Care Provider Assessment Encounter Date Assessment Date Assessment LastModified by Organization Details LastModified Time 11/03/2013 11/03/2013 Contact dermatitis right dorsal foot with secondary mild cellulitis -Wound care instructions given. Aveeno oatmeal soap recommended. Zyrtec 10 mg daily and Benedryl as directed QHS PRN itchy skin. Begin medications as directed. Medication risks and benefits discussed. Follow up 2 weeks with PCP or ER if worse. [email or web address] Not available 11/03/2013 10:41:38 Plan of Treatment Reminders Order Date Submit Date Provider Last Modified By Organization Details Last Modified Time Details Appointments None recorded. Lab rapid flu (A+B) 2019 020 [email or web address] In-Office Order, Internal Use Only DO Not Attach Compendium DO Not Attach Compendium, Do Not Delete/merge, [id number] 0 17:37:06 rapid flu (A+B) 2017 018 [email or web address] In-Office Order, Internal Use Only DO Not Attach Compendium DO Not Attach Compendium, Do Not Delete/merge, [id number] 8 08:54:26 Referral None recorded. Procedures None recorded. Surgeries None recorded. Imaging XR, chest - [address] X-Ray Chest, 2 views (PA/LAT) 2019 REGINALDO [facility] (Interface Testing) DO Not Use, [address], [place], [address], 0 14:43:06 Medication Orders doxycyclin e hyclate 100 mg tablet 2019 020 INTERFACE [facility], [address], [place], [address], 0 17:38:02 ProAir HFA 90 mcg/actuat ion aerosol inhaler 2019 020 INTERFACE [facility], [address], [place], [address], 0 17:39:40 DuoNeb 0.5 mg-3 mg(2.5 mg base)/3 mL solution for nebulizati on 2019 020 [email or web address] Not available 0 15:02:30 prednisone 20 mg tablet 2019 020 INTERFACE [facility], [address], [place], [address], 0 17:45:25 Tessalon Perles 100 mg capsule 2019 020 INTERFACE [facility], [address], [place], [address], 0 17:39:40 Tamiflu 75 mg capsule 2017 018 [email or web address] None - (No Preferred Pharmacy For Patient), [id number] 0 16:58:10 Zithromax Z-Crispin 250 mg tablet 2017 018 [email or web address] None - (No Preferred Pharmacy For Patient), [id number] 0 16:58:13 prednisone 10 mg tablet 2017 [email or web address] None - (No Preferred Pharmacy For Patient), [id number] 0 16:58:03 Medrol (Crispin) 4 mg tablets in a dose pack 2013 014 INTERFACE [facility], [address], [place], [address], 4 10:40:31 Silvadene 1 % topical cream 2013 014 [email or web address] [facility], [address], [place], [address], 0 16:58:17 Patient TargetsNo targets recorded. Patient Instructions Encounter Date Encounter Id Patient Instructions Last Modified By Organization Details Last Modified Time 10/24/2019 [id number] Plenty of rest, plenty of fluids. Practice frequent handwashing. Patient informed to have low threshold for going to the ER if she spikes high fevers or is not getting better. She has comorbidities with positive flu and should take this seriously. Not available 10/24/2019 18:18:07 Patient reports that her blood glucose is well controlled and she has done well on prednisone in the past. Not available 10/24/2019 17:46:09 Reason for Referral None Reported. Results Created Date Observation Date Name Description Value Unit Range Abnormal Flag Note LastModifiedBy Organization Detail LastModifiedTime 09/17/19 18 09/17/2017 rapid flu (A+B) influenza type A negati ve negati ve Not Available In-Office Order Internal Use Only DO Not Attach Compendium DO Not Attach Compendium, Do Not Delete/merge, [id number] 09/17/2017 19:04:43 09/17/19 18 09/17/2017 rapid flu (A+B) infulenza type B positi ve negati ve Not Available In-Office Order Internal Use Only DO Not Attach Compendium DO Not Attach Compendium, Do Not Delete/merge, [id number] 09/17/2017 19:04:43 10/24/19 20 10/24/2019 rapid flu (A+B) influenza type A positi ve negati ve Not Available In-Office Order Internal Use Only DO Not Attach Compendium DO Not Attach Compendium, Do Not Delete/merge, [id number] 10/24/2019 17:16:01 10/24/19 20 10/24/2019 rapid flu (A+B) infulenza type B negati ve negati ve Not Available In-Office Order Internal Use Only DO Not Attach Compendium DO Not Attach Compendium, Do Not Delete/merge, [id number] 10/24/2019 17:16:01 10/25/19 20 10/24/2019 XR, chest , 2 view No observ ation record ed. [id number] [facility] (Interface Testing) DO Not Use [address] [place] [address] [place], [address], 07/31/2024 19:44:29 10/25/19 20 10/24/2019 XR, chest , 2 view No observ ation record ed. [id number] [facility] (Interface Testing) DO Not Use [address] [place] [address] [place], [address], 07/31/2024 19:44:30 Result Notes None recorded. Problems Name Problem SNOMED Code Status Onset Date Resolution Date Notes Provider Name and Address Organization Details Recorded Time Major depressive disorder [id number] MARIA ALEJANDRA Caceres [address], [place], [address], [facility], [facility] 4 10:32:49 Hyperlipidemia [id number] MARIA ALEJANDRA Caceres [address], [place], [address], [facility], [facility] 4 10:32:49 Anxiety disorder 748725864 MARIA ALEJANDRA Caceres [address], [place], [address], [facility], [facility] 4 10:32:49 Benign essential hypertension [id number] MARIA ALEJANDRA Caceres [address], [place], [address], [facility] 4 10:32:49 Problem Notes None recorded. Procedures Surgical History Date Name Laterality Status Provider Name and Address Organization Details Recorded Time 0 Nebulizer treatment completed MARIA ALEJANDRA EVERETT [address], [place], [address], [facility], [facility] 10/24/2019 17:58:56 Back surgery completed [facility] 11/03/2013 09:52:56 section completed [facility] 11/03/2013 09:52:56 Joint replacement, Knee completed [facility] 11/03/2013 09:52:56 Imaging Results None recorded. Procedure Notes None recorded. Medical Equipment None Reported. Allergies Allergen ID Allergen Name Allergen Category Reaction Reaction Severity Criticality Documentation Date Start Date Code Code System Note Provider Name and Address Organization Details Recorded Time 403603 Byetta medicatio n Not available Not available Not available 11/03/2013 97181 1 RxNorm Kathy Briseno [facility] 4 09:52:56 214984 Glucophag e medicatio n Not available Not available Not available 11/03/2013 06958 7 RxNorm Kathy Elliottson [facility] 4 09:52:56 267058 Zocor medicatio n Not available Not available Not available 11/03/2013 00073 3 RxNorm Kathy Elliottson [facility] 4 09:52:56 Medications Name Sig Start Date Stop Date Status Note LastModified by Organization Details LastModified Time amoxicill in 500 mg capsule active Not Available Not Available Not Available prednison e 10 mg tablet 1 tablet 3 times daily 3 days, 1 tab twice daily 3 days, 1 tab daily 3 days 10/23 completed Not Available Not Available Not Available ropinirol e 1 mg tablet active Not Available Not Available Not Available famotidin e 10 mg tablet Take 1 tablet every day by oral route. active Not Available Not Available No t Available ibuprofen 800 mg tablet active Not Available Not Available Not Available Medrol (Crispin) 4 mg tablets in a dose pack Take 4 mg by oral route as directed for 6 days. 11/09 completed Not Available Not Available Not Available prednison e 20 mg tablet Take 2 tablets every day by oral route for 5 days. 2019 active Not Available Not Available Not Avai lable prednison e 5 mg tablet active Not Available Not Available Not Available Zithromax Z-Crispin 250 mg tablet TAKE 2 TABLETS (500 MG) BY ORAL ROUTE ONCE DAILY FOR 1 DAY THEN 1 TABLET (250 MG) BY ORAL ROUTE ONCE DAILY FOR 4 DAYS 10/23 completed Not Available Not Available Not Available penicilli n V potassium 500 mg tablet active Not Available Not Available Not Available acetamino phen 300 mg-codein e 30 mg tablet active Not Available Not Available Not Available Tamiflu 75 mg capsule Take 1 capsule twice a day by oral route for 5 days. 10/23 completed Not Available Not Available Not Available oxycodone -acetamin ophen 5 mg-325 mg tablet 10/23 completed Not Available Not Available Not Available Tessalon Perles 100 mg capsule Take 1 capsule 3 times a day by oral route. 2019 active Not Available Not Available Not Avai lable DuoNeb 0.5 mg-3 mg(2.5 mg base)/3 mL solution for nebulizat ion Inhale 3 mL by nebuliza tion route. 2019 active Not Available Not Available Not Avai lable Silvadene 1 % topical cream Apply twice daily to clean dry affected skin for 14 days or until healed. 10/23 completed Not Available Not Available Not Available ropinirol e 0.25 mg tablet active Not Available Not Available Not Available lisinopri l 30 mg tablet active Not Available Not Available Not Available mirtazapi ne 45 mg tablet active Not Available Not Available Not Available hydrochlo rothiazid e 25 mg tablet active Not Available Not Available Not Available lorazepam 1 mg tablet 10/23 completed Not Available Not Available Not Available Cheratuss in AC 10 mg-100 mg/5 mL oral liquid take 1-2 tsp every 4-6 hours as needed for cough 10/23 completed called in to pharmacy per [facility] 09/17/17 pdh Not Available Not Available Not Available albuterol sulfate HFA 90 mcg/actua tion aerosol inhaler TAKE 2 PUFFS BY MOUTH EVERY 4 HOURS 2019 active Not Available Not Available Not Avai lable doxycycli ne hyclate 100 mg tablet Take 1 tablet twice a day by oral route for 10 days. 2019 active Not Available Not Available Not Avai lable naproxen 500 mg tablet active Not Available Not Available Not Available amoxicill in 875 mg-potass ium clavulana te 125 mg tablet 10/23 completed Not Available Not Available Not Available oxycodone 5 mg tablet 10/23 completed Not Available Not Available Not Available Crestor 10 mg tablet 10/23 completed Not Available Not Available Not Available Xifaxan 550 mg tablet active Not Available Not Available Not Available Dulera 200 mcg-5 mcg/actua tion HFA aerosol inhaler 10/23 completed Not Available Not Available Not Available Linzess 145 mcg capsule 10/23 completed Not Available Not Available Not Available Tresiba FlexTouch U-200 30-32 units active Not Available Not Available No t Available Vitals Date Recorded Body weight Body mass index (BMI) Body height Body temperature Heart rate Respiratory rate Oxygen saturation Systolic And Diastolic Provider Name and Address Organization Details Last Updated DateTime 8 88719.1 2 g 36.9 kg/m2 160.66 cm 98.6 [degF] 122 /min 20 /min 98 % 118/68 mm[Hg] Antonietta Melton [facility], [facility] 8 18:56:05 Date Recorded Respiratory rate Body weight Body temperature Heart rate Oxygen saturation Systolic And Diastolic Provider Name and Address Organization Details Last Updated DateTime 0 16 /min 198623. 84 g 97.8 [degF] 104 /min 97 % 122/66 mm[Hg] Kimberly Ellington [facility], [facility] 0 17:06:19 Date Recorded Body weight Body height Body mass index (BMI) Body temperature Heart rate Respiratory rate Systolic And Diastolic Provider Name and Address Organization Details Last Updated DateTime 4 026014. 65846 g 160.655 cm 40.8 kg/m2 98.9 [degF] 84 /min 18 /min 142/80 mm[Hg] Kathy Briseno [facility] 4 10:06:01 Social History Question Answer Notes LastModified by Organizat ion Details LastModified Time Tobacco Smoking Status Never Smoker Kathy maciel [facility] 11/03/2013 09:52:56 Alcohol Use No [email or web address] Information n ot available 11/03/2013 Sex: Unknown Functional Status None recorded. Mental Status None recorded. Family History Relationship Description Onset Age of this Age Resolved Age Notes LastModified by Organization Details LastModified Time Mother Malignant neoplasm of breast [email or web address] Not available 2013 10:26:24 Medical History Condition Response High blood pressure Y Gynecological HistoryNo gynecological history recorded. Obstetrics History GPAL:G 0 P 0 0 0 0 Immunizations Vaccine Type Date Status Note Provider Nam e and Address Organization Details Recorded Time Influenza, split virus, trivalent, preservative 3 completed [facility] 11/03/2013 10:06:01 Past Encounters Encounter ID Performer Location Encounter Start Date Encounter Closed Date Diagnosis/Indication Diagnosis SNOMED-CT Code Diagnosis ICD10 Code Diagnosis IMO Codes Diagnosis Note [id number] MARIA ALEJANDRA Cevallos [facility] [address] [place] [address] 11/03/2013 09:44:49 11/03/2013 17:51:58 Cellulitis 694790300 Contact dermatitis 43396557 [id number] MARIA ALEJANDRA Lei [facility] [address] [place] [address] 09/17/2017 17:50:25 09/18/2017 20:04:29 Fever 906526476 R50.9 patient alternate Tylenol with ibuprofen every 4 hours. Influenza caused by Influenza B virus 44071685 J10.1 patient instructed to take Tamiflu and Zithromax as directed. Cheratussi n 180 mL's 1-2 teaspoons every 4-6 hours when necessary no refills. Increase fluids. Symptoms not resolving in 7-10 days, patient is to return to the walk-in. [id number] MARIA ALEJANDRA EVERETT ENG [facility] [address] [place] [address] 10/24/2019 16:28:22 10/25/2019 22:09:52 Cough 79883482 R05 Expiratory wheezing 9763 007 R06.2 Pneumonia 410562961 J18. 9 Influenza caused by Influenza A virus 664824079 J09.X2 influenza A positive Health Concerns Section Related Observation LastModified by Organization Detai ls LastModified Time None Recorded Concern Status LastModified by Organization Details LastModified Time None Recorded Advance Directives Directive None Recorded Payers Insurance Date Sequence Insurance Name Policy Number Policy Prabhakar Covered Member ID Prabhakar Member ID Guarantor Name 10/24/2019 2 [facility] MEDICARE EXTENSION (INDEMNITY) [id number] [place] Julio Braxton [id number] [place] Jul[place] Braxton 10/24/2019 1 [place] Julio Braxton [id number] [place] Julio Braxton Notes Date Note Type Note Provider Name and Address Organization Details Recorded Time 11/03/2013 text/html Pt c/o two blisters noticed on top of right foot 5 days ago, now one large blister and seems to be growing larger. Pt does not recall injury and does not feel like a blister from walking and rubbing. Slightly painful to touch. Pt denies fever, bleeding or drainage, headache, sore throat, SOB, cough, wheeze, CP, abdominal or back pain, nausea, vomiting, numbness, tingling, or weakness in extremities, urinary or bowel changes, or unusual fatigue. MARIA ALEJANDRA Cevallos [address], [place], [address], [facility], [employer] 11/03/2013 10:46:18 09/17/2017 text/html patient comes in with 2 day history of congested cough with sinus congestion, low-grade fever and sore throat. Patient denies nausea, vomiting or diarrhea. MARIA ALEJANDRA Lei [address], [place], [address], [facility], [facility] 09/17/2017 19:52:17 10/24/2019 text/html 74 yr old female presents with cough and congestion for 6 days. She reports her had similar symptoms about a week ago. She reports symptoms started with a slight tickle in her throat. Symptoms progressed to sinus congestion, headache, dry cough, and chills, She denies fever, nausea, vomiting. She has been taking Mucinex DM with no relief. MARIA ALEJANDRA EVERETT [address], [place], [address], [facility] - [facility], [facility] 10/24/2019 18:18:12 OBGyn Episode No OBEpisode recorded.
--- OUTSIDE RECORDS SUMMARY | 2025-08-11 08:54 | XMS_ITS | Clinical Summary ---
Author Organization [facility] Address [address] [place] [address] Care Team Providers Care Final Inspection Supervisor Name Role Phone Cm Magallanes Unavailable [phone] Social History Tobacco Use Types Packs/Day Years Used Date Smoking Tobacco: Never Assessed Comments Unknown Sex and Gender Information Value Date Recorded Sex Assigned at Not on file Legal Sex Female 12:59 AM EST Gender Identity Unable to obtain 10/04/2023 12:5 9 AM EST Sexual Orientation Not on file Last Filed Vital Signs Vital Sign Reading Time Taken Comments Blood Pressure - - Pulse - - Temperature - - Respiratory Rate - - Oxygen Saturation - - Inhaled Oxygen Concentration - - Weight 93 kg (205 lb) 08/28/2022 12:00 AM EST Legacy value: 205 lbs; Method: Patient Reported Height - - Body Mass Index - - Plan of Treatment Health Maintenance Due Date Last Done Comments Blood Pressure 1945 Depression Screening 1958 Hepatitis C Screening 1964 DTaP,Tdap,and Td Vaccines (1 - Tdap) 1965 Pneumococcal Vaccine: 50+ Ye ars (1 of 1 - PCV) 1996 Zoster Vaccine (1 of 2) 1996 Osteoporosis Screening 2011 COVID-19 Vaccine ( - 2024-2 6 season) 2025 Influenza Vaccine (#1) 2025 Meningococcal B Vaccines Aged Out No longer eligible based on patient's age to complete this topic Meningococcal Vaccines Aged Out No lo nger eligible based on patient's age to complete this topic Care Teams Final Inspection Supervisor Relationship Specialty Start Date End Date Cm Magallanes [address] [place] [address] PCP - Insurance Assigned PCP 09/14/22
--- OUTSIDE RECORDS SUMMARY | 2025-08-11 08:54 | XMS_ITS | Continuity of Care Document ---
Author Organization [facility] [address] [place] [address] Phone [phone] Problems Active Problems Provider Date Type 2 diabetes mellitus Ashleigh Bautista NP Ons et: 07/12/2025 Essential hypertension Ashleigh Bautista NP Onset : 07/12/2025 Hypercholesterolemia Ashleigh Bautista NP Onset: 07/12/2025 Thyroid nodule Ashleigh Bautista NP Onset: 07/12 Social History Type Date Description Comments Sex Female Sex Unknown Lives With Spouse ETOH Use Denies alcohol use Tobacco Use Start: Unknown End: Unknown Patient is a former smoker [employer] Allergies and adverse reactions Active Allergies Criticality Reaction Severity Comments Date Zoloft Unable to assess criticality 07/12/2025 Byzhen Unable to assess criticality 07/12/2025 Medications Active Medications SIG Qnty Indications Order ing Provider Date Carvedilol3.125mg Tablets Take 1 Tablet By Mouth Twice A Day With Meals Unknown 0 Optichamber DiamondMisc as Instructed Brii Jimenez MD Tramadol LHS13xq Tablets Take 1 Tablet By Mouth Every Day as Needed NormoylCriss caraballo PA-C Uweulrullu940ak Capsules Take 1 Capsule By Mouth Twice A Day NormoyleRajivin PA-C Tresiba Fipbfqknj993Omxs/ML Solution Pen-Inject Inject 36 Units Subcutaneously Daily NormoyleCriss PA-C Clopidogrel Nobbjexee32rh Tablets Take 1 Tablet By Mouth 1 Time Each Day. Unknown Oolnjcnqpb80ll Tablets Take 1 Tablet By Mouth Every Day NormoylCriss caraballo PA-C Repatha Quupgkutc503fp/ml Solution Auto-Inject Inject 1 ML Into The Skin Every 14 Days Subcutaneous Every 14 Days Criss Churchill PA-C Tjhilpx2sw Tablets Take 1 Tablet By Nelia th Twice A Day Cm Magallanes M.D. Lssdubildma907ll Capsules Take 4 Capsules By Mouth 1 Hour Prior To Procedure Collin Stoddard MD Diltiazem HCL ER Coated [id number] Caps ER 24HR Take 1 Capsule By Mouth 1 Time Each Day. Unknown 0 BD Pen Needle/Mini/Ultra-F ine/31G X 5mm31G X 5 mm Misc Criss Churchill PA-C BD Pen Needle/Mini/Ultra-F ine/31G X 5mm31G X 5 mm Misc Use Once Per Day To Inject Insulin Criss Churchill PA-C Latanoprost0.005% Solution Instill 1 Drop Into Both Eyes AT Bedtime Collin Solomon Ondansetron HCL4mg Tablets Take 1 Tablet By Mouth Every 12 Hours as Needed Criss Churchill PA-C Cndzvwfvrz77vr Tablets Take 1 Tablet By Mouth Every Day Criss Churchill PA-C Gibuqsyywhm35ak Tablets Take 1 Tablet By Mouth Everyday AT Bedtime Criss Churchill PA-C Vital Signs Date Vital Result Comment 07/12/2025 1:29pm BP Systolic 140 mmHg BP Diastolic 78 mmHg Heart Rate 100 /min Height 64 inches 5'4 Weight 204.25 lb BMI (Body Mass Index) 35.1 kg/m2 Medical Devices Description No Information Available Encounters Type Date Location Provider Dx Diagnosis Office Visit 07/12/2025 1:30p Main Office Ashleigh Bautista NP E04.1 Nontoxic sin gle thyroid nodule Assessments Date Code Description Provider 07/12/2025 E04.1 Nontoxic single thyroid nodu julia Bautista NP Plan of Treatment Future Appointment(s):* 07/11/2026 10:00 am - Ashleigh Bautista NP at Main Office 07/12/2025 - Ashleigh Bautista NP* E04.1 Nontoxic single thyroid nodule Functional Status Description No Information Available Mental Status Description No Information Available Referrals Description No Information Available
--- OUTSIDE RECORDS SUMMARY | 2025-08-11 08:54 | XMS_ITS | Patient Health Record ---
Author Organization [facility] [address] Address [address] [place] [address] Care Team Providers Care Center Maker Hand Name Role Phone Katie Churchill Unavailable [phone] CECILE OKEEFE Unavailable [phone] MATIAS TOWNSEND Unavailable [phone] Allergies Allergen (clinical drug ingredient) Drug/Non Drug Allergy documented on EMR Reaction Allergy Type Onset Date Status atorvastatin Atorvastatin stomach upset Drug Allergy Active Results Component Value Reference Range Flag Notes US HEAD NECK SOFT TISSUE Reviewed date:06/09/2025 12:47:46 PM Interpretation: Performing Lab: Notes/Report: Note See Note [facility], a member of [facility] Patient Name: STARR HOBBS Date of : 1945 Reason for Exam: thyroid nodule Exam Date: 05/31/2025 [id number] EST Report Status: Final Ordering Provider: KATIE [...] in the left thyroid lobe. [place] ([id number]) -------- FINAL REPOR T -------- Dictated By: Daniela Rogers i Dictated Date: 06/07/2025 15:18 ET Assigned Physician: Daniela Khan Reviewed and Electronically Signed By: Daniela Khan Signed Date: 06/07/2025 15:21 ET Workstation ID: [id number] Transcribed By: Self Edit Transcribed Date: 06/07/2025 15:18 ET CBC/Diff Ambiguous Default Reviewed date:06/02/2025 02:27:39 PM Interpretation: Performing Lab:[facility], [address] [place] [address], [place], Phone - [phone], Director - [place] Notes/Report: WBC 8.3 3.4-10.8 x10E3/uL RBC 3.67 3.77-5.28 x10E6/uL L Hemoglobin 10.8 11.1-15.9 g/dL L Hematocrit 34.6 34.0-46.6 % MCV 94 79-97 fL MCH 29.4 26.6-33.0 pg MCHC 31.2 31.5-35.7 g/dL L RDW 13.3 11.7-15.4 % Platelets 549 150-450 x10E3/uL H Neutrophils 67 Not Estab. % Lymphs 24 [...] from your office. In accordance with the [facility] Ambiguous Test Code Policy dated February 2003, we have assigned CBC with Differential/Platel et, Test Code #246987 to this request. If this is not the testing you wished to receive on this specimen, please contact the [facility] Client [facility]quiry/ Technical Services Department to clarify the test order. We appreciate your business. Comp. Metabolic Panel (14)-3 Reviewed date:06/02/2025 02:27:39 PM Interpretation: Performing Lab:[facility], [address] [place] [address], Phone - [phone], Director - Gypsy Notes/Report: Glucose 123 70-99 mg/dL H BUN 14 8-27 mg/dL Creatinine 0.99 0.57-1.00 mg/dL eGFR 58 >59 mL/min/1.73 L BUN/Creatinine Ratio 14 12-28 Sodium 144 134-144 mmol/L Potassium 4.1 3.5-5.2 mmol/L Chloride 105 96-106 mmol/L Carbon Dioxide, Total 27 20-29 mmol/L Calcium 10.0 8.7-10.3 mg/dL Protein, Total 5.6 6.0-8.5 g/dL L Albumin 3.8 3.8-4.8 g/dL Globulin, Total 1.8 1.5-4.5 g/dL Bilirubin, Total 0.3 0.0-1.2 mg/dL Alkaline Phosphatase 117 49-135 IU/L AST (SGOT) 17 0-40 IU/L ALT (SGPT) 11 0-32 IU/L Vitamin [id number] Reviewed date:06/02/2025 02:27:39 PM Interpretation: Performing Lab:[facility] [address] [place] [address], [place], Phone - [phone], Director - Gypsy Notes/Report: Vitamin B12 462 503-7915 pg/mL Albumin/Creatinine Ratio,Uri ne-[id number] Reviewed date:04/20/2025 09:57:15 AM Interpretation: Performing Lab:[facility] Yoder [facility], [place], Phone - [phone], Director - [facility] Notes/Report: Creatinine, Urine 104.1 Not Estab. mg/dL Albumin, Urine 12.2 Not Estab. ug/mL Alb/Creat Ratio 12 0-29 mg/g creat Normal: 0 - 29 Moderately increased: 30 - 300 Severely increased: >300 Urinalysis, Complete-[id number] Reviewed date:04/20/2025 09:57:15 AM Interpretation: Performing Lab:[facility] [place], [address] [facility], Phone - [phone], Director - [facility] Notes/Report: Specific Melber 1.026 1.005-1.030 pH 6.0 5.0-7.5 Urine-Color Yellow Yellow Appearance Clear Clear WBC Esterase 1+ Negative A Protein Trace Negative/Trace Glucose Negative Negative Ketones Negative Negative Occult Blood Negative Negative Bilirubin Negative Negative Urobilinogen,Semi-Qn 0.2 0.2-1.0 mg/dL Nitrite, Urine Negative Negative Microscopic Examination See below: M icroscopic was indicated and was performed. WBC 0-5 0 - 5 /hpf RBC 0-2 0 - 2 /hpf Epithelial Cells (non renal) 0-10 0 - 10 /hpf Casts None seen None seen /lpf Bacteria None seen None seen/Few Comp. Metabolic Panel (14)-3 81027 Reviewed date:04/14/2025 02:50:56 PM Interpretation: Performing Lab:[facility] [place], [address] [facility], Phone - [phone], Director - [facility] Notes/Report: Glucose 91 70-99 mg/dL BUN 23 8-27 mg/dL Creatinine 1.14 0.57-1.00 mg/dL H eGFR 49 >59 mL/min/1.73 L BUN/Creatinine Ratio 20 12-28 Sodium 144 134-144 mmol/L Potassium 4.0 3.5-5.2 mmol/L Chloride 101 96-106 mmol/L Carbon Dioxide, Total 24 20-29 mmol/L Calcium 10.8 8.7-10.3 mg/dL H Verified by repeat analysis Protein, Total 6.5 6.0-8.5 g/dL Albumin 4.5 3.8-4.8 g/dL Globulin, Total 2.0 1.5-4.5 g/dL Bilirubin, Total 0.2 0.0-1.2 mg/dL Alkaline Phosphatase 165 44-121 IU/L H AST (SGOT) 18 0-40 IU/L ALT (SGPT) 12 0-32 IU/L MR LUMBAR SPINE WO CONTRAST Reviewed date:05/05/2025 03:58:00 PM Interpretation: Performing Lab: Notes/Report: Note See Note [facility], a member of [employer] Patient Name: STARR HOBBS Date of : 1945 Reason for Exam: Radiculopathy lumbar region Exam Date: 05/03/2025 [id number] EST Report Status: Final Ordering Provider: KATIE CUHRCHILL PCP: JANAY SEVILLA PROCEDURE: MRI of th [...] FINAL REPOR T -------- Dictated By: Eddie Dwyer Dictated Date: 05/05/2025 09:38 ET Assigned Physician: Eddie Dwyer Reviewed and Electronically Signed By: Eddie Dwyer Signed Date: 05/05/2025 10:06 ET Workstation ID: [id number] Transcribed By: Self Edit Transcribed Date: 05/05/2025 09:38 ET Thyroxine (T4)-477705 Reviewed date:04/14/2025 02:50:56 PM Interpretation: Performing Lab:[facility], Phone - [phone], [facility] Notes/Report: Thyroxine (T4) 9.1 4.5-12.0 ug/dL Vitamin A01-107044 Reviewed date:04/14/2025 02:50:56 PM Interpretation: Performing Lab:[facility], Phone - [phone], Director - [place] Notes/Report: Vitamin B12 348 122-4004 pg/mL Request Problem [facility] was unable to collect sufficient specimen to perform the following test(s), and is providing the patient with re-collection instructions. TEST: 188537 Vitamin D, 25-Hydroxy Panel: 796833 Triiodothyronine (T3)-417971 Reviewed date:04/14/2025 02:50:56 PM Interpretation: Performing Lab:[facility] [address], Phone - [phone], [facility] - [facility] Notes/Report: Triiodothyronine (T3) 140 71-180 ng/dL Urinalysis, Complete-534629 Reviewed date:04/14/2025 02:50:56 PM Interpretation: Performing Lab:[facility] [place], [address] [place] [address], Phone - [phone], Director - [place] Notes/Report: Specific Melber 1.017 1.005-1.030 pH 5.5 5.0-7.5 Urine-Color Yellow Yellow Appearance Cloudy Clear A WBC Esterase 3+ Negative A Protein Trace Negative/Trace Glucose Negative Negative Ketones Negative Negative Occult Blood Negative Negative Bilirubin Negative Negative Urobilinogen,Semi-Qn 0.2 0.2-1.0 mg/dL Nitrite, Urine Positive Negative A Microscopic Examination See below: M icroscopic was indicated and was performed. WBC >30 0 - 5 /hpf A RBC None seen 0 - 2 /hpf Epithelial Cells (non renal) 0-10 0 - 10 /hpf Casts None seen None seen /lpf Bacteria Many None seen/Few A TSH-[id number] Reviewed date:04/14/2025 02:50:56 PM Interpretation: Performing Lab:[facility] [place], [address] [place] [address], Phone - [phone], Director - [place] Notes/Report: TSH 1.880 0.450-4.500 uIU/mL Vitamin D, 18-Knogacl-393267 Reviewed date:04/14/2025 02:50:56 PM Interpretation: Performing Lab:[facility] [place], [address] [place] [address], Phone - [phone], Director - [place] Notes/Report: Vitamin D, 25-Hydroxy TNP [facility] was unable to collect sufficient specimen to perform the following test(s), and is providing the patient with re-collection instructions. Vitamin D deficiency has been defined by the [place] of Medicine and an Endocrine Society practice guideline as a level of serum 25-OH vitamin D less than 20 ng/mL (1,2). The Endocrine Society went on to further define vitamin D insufficiency as a level between 21 and 29 ng/mL (2). 1. IOM ([place] of Medicine). 2010. Dietary reference intakes for calcium and D. [place]: The National Academies Press. 2. Salome MF, Francisco GARRISON, Arminda OLIVEIRA, et al. Evaluation, treatment, and prevention of vitamin D deficiency: an Endocrine Society clinical practice guideline. JCEM. 2010; 96(7):1911-30. Albumin/Creatinine Ratio,Uri ne-219653 Reviewed date:04/14/2025 02:50:56 PM Interpretation: Performing Lab:[facility] [place], [address] [place] [address], Phone - [phone], Director - MDLeonard Notes/Report: Creatinine, Urine 115.8 Not Estab. mg/dL Albumin, Urine 15.5 Not Estab. ug/mL Alb/Creat Ratio 13 0-29 mg/g creat Normal: 0 - 29 Moderately increased: 30 - 300 Severely increased: >300 Lipid Panel-944410 Reviewed date:04/14/2025 02:50:56 PM Interpretation: Performing Lab:[facility] [place], [address] [facility], [place], Phone - [phone], Director - MDAlbertay Notes/Report: Cholesterol, Total 182 100-199 mg/dL Triglycerides 227 0-149 mg/dL H HDL Cholesterol 53 >39 mg/dL VLDL Cholesterol Cordell 38 5-40 mg/dL LDL Chol Calc (NIH) 91 0-99 mg/dL Hemoglobin A1c Reviewed date:04/14/2025 02:50:56 PM Interpretation: Performing Lab:[facility] [place], [address] [facility], [place], Phone - [phone], Director - MDJodry Notes/Report: Hemoglobin A1c 5.4 Reference Range: [place] Diabetes Association (ADA) Guidelines: <5.7: Decreased risk for diabetes 5.7 - 6.4: Increased risk for diabetes >6.4: Ongoing Hyperglycemia of any cause <7.0: Glycemic control for adults with diabetes Estimated Average Glucose 108 XR HIP 2-3 VIEWS RIGHT Reviewed date:04/12/2025 01:00:28 PM Interpretation: Performing Lab: Notes/Report: Note See Note [facility], a member of [employer] Patient Name: STARR HOBBS Date of : 1945 Reason for Exam: OTHER Exam Date: 04/08/2025 [id number] EST Report Status: Final Ordering Provider: KATIE [...] surgery in the lower lumbar spine. Code 39558 -------- FINAL REPOR T -------- Dictated By: Jacoby Chavez Dictated Date: 04/08/2025 10:50 ET Assigned Physician: Jacoby Chavez Reviewed and Electronically Signed By: Jacoby Chavez Signed Date: 04/08/2025 10:53 ET Workstation ID: [id number] Transcribed By: Self Edit Transcribed Date: 04/08/2025 10:50 ET Reason For Referral Reason MRI large disc extru loraine Diagnosis 1 Intervertebral disc disorders with radiculopathy, lumbar region (M51.16) Referral Organization [facility] [address] Referring Provider First Name Katie Referring Provider Last Name Zhao Referring Provider Speciality Internal edicine Referred Provider Specialty Neurosurgery General Notes Farshad Tucker, [address] [place] [address] [address], [place] [address] , , Clinical Notes Fabricio Lockhart 03:35:47 PM > The patient was seen 05/07/25 Referral Priority Routine Reason treat and evaluate Diagnosis 1 Other intervertebral disc displacement, lumbosacral region (M51.27) Referral Organization [facility] [address] Referring Provider First Name Katie Referring Provider Last Name Zhao Referring Provider Speciality Internal M edicine Referred Provider Specialty Pain Medicin e General Notes Jermaine Momin 05/10 01:50:42 PM >, [facility] [place] [address], p: [phone], f: [phone] Clinical Notes Fabricio Lockhart 09/2024 03:18:04 PM > The office confirmed receipt of referral. They will be contacting the patient next week to schedule Referral Priority Routine Reason Vestibular Therapy A TI-ELM Diagnosis 1 Benign paroxysmal po sitional vertigo, bilateral (H81.13) Referral Organization [facility] [address] Referring Provider First Name Katie Referring Provider Last Name Monroenagi Referring Provider Speciality Internal edicine Referred Provider Specialty Physical The rapist General Notes Kerry Stanley 10:37:01 AM > Referral form faxed to Clinical Notes Fabricio Lockhart 02:44:08 PM > The office confirmed receipt of the referral. They will contact the patient for scheduling Referral Priority Routine Reason [facility] endocrinolo jose manuel Diagnosis 1 Thyroid nodule (E04. 1) Referral Organization [facility] [address] Referring Provider First Name Katie Referring Provider Last Name Anarashmi Referring Provider Speciality Internal edicine Referred Provider Specialty Endocrinolog y General Notes Kerry Stanley 10:39:32 AM > Pt given referral faxed to Referral Priority Routine Reason Diagnosis 1 Thyroid nodule (E04. 1) Referral Organization [facility] [address] Referring Provider First Name Katie Referring Provider Last Name Anarashmi Referring Provider Speciality Internal edicine Referred Provider Specialty Endocrinolog y General Notes Kerry Stanley 11/2024 11:33:29 AM > Referral faxed to [phone] Clinical Notes Kerry Stanley 11/2024 11:33:44 AM > Pt's request. [facility] endocrinology did not work for pt. Referral Priority Routine Medications Medication SIG (Take, Route, Frequency, Duration) Notes Start Date End Date Status Tresiba 100 UNIT/ML Solution as directed Subcutaneous daily 36U 03/04/2025 Active Repatha SureClick 140 MG/ML Solution Auto-injector INJECT 1 ML INTO THE SKIN EVERY 14 DAYS Subcutaneous every 14 days; Duration: 84 days Active dilTIAZem HCl ER 240 MG Tablet Extended Release 24 Hour 1 tablet Orally Once a day 03/04/2025 Active Lisinopril 40 MG Tablet 1 tablet Orally Once a day; Duration: 90 days Active Clopidogrel Bisulfate 75 MG Tablet 1 tablet Orally Once a day; Duration: 90 days Active FreeStyle Hetal 3 Plus Sensor - Miscellaneous apply 1 sensor to skin every 15 days; Duration: 15 days 06/23/2025 Active Eliquis 5 MG Tablet as directed Orally twice a day 03/04/2025 Active Easy Touch Pen Graton 31G X 5 MM Miscellaneous use once per day to inject insulin; Duration: 100 days 06/22/2025 Active Allopurinol 100 MG Tablet 1 tablet Orally Once a day; Duration: 30 days 04/08/2025 Active Latanoprost 0.005 % Solution 1 drop in both eyes Ophthalmic Once a day; Duration: 25 days Active tiZANidine HCl 2 MG Tablet 1 tablet at bedtime as needed Orally Once a day; Duration: 30 days 04/15/2025 Active oxyCODONE HCl 5 MG Tablet 1 tablet as needed Orally twice a day; Duration: 10 days As needed Partial Fill upon Patient Request 05/11/2025 Not-Taking traMADol HCl 50 MG Tablet 1 tablet as needed Orally Once a day; Duration: 7 days 04/08/2025 Active Pepcid Active Carvedilol 3.125 MG Tablet 1 tablet with food Orally Twice a day Active Furosemide 20 MG Tablet TAKE 1 TABLET BY MOUTH EVERY DAY; Duration: 90 Active Mirtazapine 45 MG Tablet TAKE 1 TABLET BY MOUTH EVERYDAY AT BEDTIME; Duration: 90 Active Meclizine HCl 25 MG Tablet TAKE 1 TABLET BY MOUTH EVERY 12 HOURS NEEDED; Duration: 30 Active Gabapentin 400 MG Capsule TAKE 1 CAPSULE BY MOUTH TWICE A DAY; Duration: 90 Active Acetaminophen 500 MG Capsule 1 capsule as needed Orally every 12 hours Active Tresiba FlexTouch 100 UNIT/ML Solution Pen-injector 36 units Subcutaneous daily; Duration: 30 days 05/21/2025 Active Ondansetron HCl 4 MG Tablet TAKE 1 TABLET BY MOUTH EVERY 12 HOURS NEEDED; Duration: 10 Active Social History Section Notes: etoh: none tobacco: none drugs: none Lives with etoh: none tobacco: none drugs: none Lives with etoh: none tobacco: none drugs: none Lives with etoh: none tobacco: none drugs: none Lives with etoh: none tobacco: none drugs: none Lives with etoh: none tobacco: none drugs: none Lives with etoh: none tobacco: none drugs: none Lives with etoh: none tobacco: none drugs: none Lives with Problems Problem Type SNOMED Code ICD Code Onset Dates Problem Status W/U Status Risk Notes Problem Type II diabetes mellitus without complication (761649671) Type 2 diabetes mellitus without complications (E11.9) Active confirmed Problem Encephalopathy (94725483) Other encephalopathy (G93.49) Active confirmed Problem Paroxysmal atrial fibrillation (044512688) Paroxysmal atrial fibrillation (I48.0) Active confirmed Problem Radiculopathy due to lumbar intervertebral disc disorder (908286504461974) Intervertebral disc disorders with radiculopathy, lumbar region (M51.16) Active confirmed Problem Displacement of lumbar intervertebral disc without myelopathy (66105749) Other intervertebral disc displacement, lumbosacral region (M51.27) Active confirmed Problem Abnormal blood pressure (21262713) Encounter for examination of blood pressure with abnormal findings (Z01.31) Active confirmed Problem Long-term current us e of insulin (376461205) FDC (current) use of insulin (Z79.4) Active confirmed Problem Hyperlipoproteinemia (7620730) Acquired hyperlipoproteinemia (E78.5) Active confirmed Problem Vitamin D deficiency (23077507) Vitamin D deficiency (E55.9) Active confirmed Problem Thyroid nodule (735662845) Thyroid nodule (E04.1) Active confirmed Problem John's esophagus (205202020) 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) Active confirmed Problem Lumbar radiculopathy (334474989) Lumbar radiculopathy (M54.16) Active confirmed Problem Glaucoma (09922543) Glaucoma of both eyes, unspecified glaucoma type (H40.9) Active confirmed Problem Chronic gouty arthritis (64895368) Chronic gout of left foot, 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) Active confirmed Problem Vitamin B>12< deficiency anaemia (91179387) Anemia due to vitamin B12 deficiency, unspecified B12 deficiency type (D51.9) Active confirmed Problem Mixed hyperlipidemia (714811677) Hyperlipidemia, mixed (E78.2) Active confirmed Problem Hypoglycemia (040054273) Hypoglycemia (E16.2) Active confirmed Problem Avitaminosis D (96162713) Avitaminosis D (E55.9) Active confirmed Problem Stenosis of right carotid artery (122214114533770) Stenosis of right carotid artery (I65.21) Active confirmed Problem Abnormal metabolic state due to diabetes mellitus (410533976) Abnormal metabolic state due to diabetes mellitus (E11.9) Active confirmed Problem Postviral fatigue syndrome (27603019) Postviral fatigue syndrome (G93.31) Active confirmed Problem Essential hypertension (71504250) Hypertension, essential (I10) Active confirmed Problem Type II diabetes mellitus well controlled (866306319) Diabetes type 2, controlled (E11.9) Active confirmed Vital Signs Heart Rate 99 /min 07/20/2025 Oximetry 96 % 07/20/2025 Blood pressure diastolic 70 mm Hg 07/20/2025 Height 63.5 in 07/20/2025 Blood pressure systolic 138 mm Hg 07/20/2025 Weight 203.6 lbs 07/20/2025 BMI 35.5 kg/m2 07/20/2025 Encounters Encounter Location Date Provider Diagnosis [facility] [address] [place] [address] 06/14/2025 MATIAS CHARLEYT Ear fullness, left H93.8X2 and Ear fullness, right H93.8X1 [facility] [address] [place] [address] 03/04/2025 Katie Normoyle Hyperlipidemia, mixe d E78.2 [...] unspecified glaucoma type H40.9 [facility] [address] [address] 04/08/2025 Katie Normoyle Hip pain, right M25. [...] abnormal findings Z01.30 [facility] [address] [address] 04/15/2025 Katie Normoyle Hip pain, right M25. [...] of blood pressure without abnormal findings Z01.30 [facility] [address] [address] 04/28/2025 Katie Normoyle Hip pain, right M25. 551 ; Hyperlipidemia, mixed E78.2 ; Hypertension, essential I10 ; Stenosis of right carotid artery I65.21 ; Chronic gout of left foot, unspecified cause M1A.0720 ; Paroxysmal atrial fibrillation I48.0 ; John's esophagus with dysplasia K22.719 ; Diabetes type 2, controlled E11.9 and Lumbar radiculopathy M54.16 [facility] [address] [address] 05/25/2025 Katie Normoyle COVID-19 U07.1 ; Ot [...] of blood pressure without abnormal findings Z01.30 [facility] [address] [address] 06/08/2025 Katie Normoyle Hyperlipidemia, mixe d E78.2 [...] of blood pressure without abnormal findings Z01.30 [facility] [address] 06/22/2025 Katie Normoyle Hyperlipidemia, mixe d E78.2 ; Type 2 diabetes mellitus without complications E11.9 ; Hypertension, essential I10 ; Stenosis of right carotid artery I65.21 ; Chronic gout of left foot, unspecified cause M1A.0720 ; Paroxysmal atrial fibrillation I48.0 ; John's esophagus with dysplasia K22.719 ; Lumbar radiculopathy M54.16 ; Thyroid nodule E04.1 ; Benign paroxysmal positional vertigo, bilateral H81.13 ; FDC (current) use of insulin Z79.4 and Encounter for examination of blood pressure without abnormal findings Z01.30 [facility] [address] 07/20/2025 Katie Normoyle Left foot pain M79.6 72 ; Hyperlipidemia, mixed E78.2 ; Type 2 diabetes mellitus without complications E11.9 ; Hypertension, essential I10 ; Stenosis of right carotid artery I65.21 ; Chronic gout of left foot, unspecified cause M1A.0720 ; Paroxysmal atrial fibrillation I48.0 ; John's esophagus with dysplasia K22.719 ; Lumbar radiculopathy M54.16 ; Thyroid nodule E04.1 ; 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 and Encounter for examination of blood pressure without abnormal findings Z01.30 [facility] [address] 03/04/2025 Katie Normoyle [facility] [address] 03/04/2025 Katie Normoyle Hyperlipidemia, mixe d E78.2 ; Diabetes type 2, controlled E11.9 ; Screening for thyroid disorder Z13.29 ; Vitamin B deficiency E53.9 ; Vitamin D deficiency E55.9 and Kidney disease N28.9 [facility] [address] [address] 05/05/2025 Katie Normoyle [facility] [address] 05/05/2025 Katie Normoyle [facility] [address] [place] [address] 05/07/2025 Katie Normoyle [facility] [address] [place], [place] 05/10/2025 Katie Normoyle [facility] [address] [place], [place] 05/11/2025 Katie Normoyle [facility] [address] [place], [place] 05/21/2025 Katie Normoyle [facility] [address] [place] [address] 05/21/2025 Katie Normoyle [facility] [address] [place] [address] 05/26/2025 Katie Normoyle Thyroid nodule E04.1 [facility] [address] 05/26/2025 Katie Normoyle [facility] [address] [place] 05/26/2025 Katie Normoyle [facility] [address] [place] [address] 06/08/2025 Katie Normoyle [facility] [address] 06/09/2025 Katie Normoyle [facility] [address] [place] [address] 06/11/2025 Katie Normoyle [facility] [address] [place] [address] 06/22/2025 Katie Normoyle [facility] [address] [place] [address] 06/24/2025 Katie Normoyle [facility] [address] [place], [place] 07/14/2025 Katie Normoyle [facility] [address] [place], [place] 07/20/2025 Katie Normoyle Diabetes type 2, controlled E11.9 [facility] [address] [address] 03/19/2025 Katie Normoyle [facility] [address] [address] 04/24/2025 Katie Normoyle Chronic gout of left foot, unspecified cause M1A.0720 [facility] [address] [address] 05/05/2025 Katie Normoyle [facility] [address] [address] 07/02/2025 Katie Normoyle [facility] [address] [address] 07/03/2025 Katie Normoyle [facility] [address] [address] 07/05/2025 Katie Normoyle [facility] [address] [address] 07/13/2025 Katie Normoyle Assessments Encounter Date Diagnosis (ICD [...] regularly with dentist and eye doctor. Declines [employer] and further Pap smears. Up-to-date on all vaccines. She believes she is overdue with mammogram at [facility], plans to schedule. She will be due for repeat colonoscopy with endoscopy August 2025 when she discontinues Plavix. Believes she has had a bone density scan but unsure of date and results. #Paroxysmal atrial fibrillation: Rate controlled. Denies palpitations or chest pain. Continue diltiazem 180 mg daily. Continue Eliquis 5 mg daily. Follows closely with [facility] cardiology, Dr. Delarosa. Recently had cardiac stents [...] Dictation was accomplished with the use of Dacuda voice recognition software, which is prone to [...] regularly with dentist and eye doctor. Declines [employer] and further Pap smears. Up-to-date on all vaccines. She believes she is overdue with mammogram at [facility], plans to schedule. She will be due for repeat colonoscopy with endoscopy August 2025 when she discontinues Plavix. Believes she has had a bone density scan but unsure of date and results. #Paroxysmal atrial fibrillation: Rate controlled. Denies palpitations or chest pain. Continue diltiazem 180 mg daily. Continue Eliquis 5 mg daily. Follows closely with [facility] cardiology, Dr. Delarosa. Recently had cardiac stents [...] Dictation was accomplished with the use of Dacuda voice recognition software, which is prone to medical misidentifications and grammatical errors. This are unintentional and the practitioner does try to identify and correct these, but some could still be present. Please do not hesitate to contact practitioner for clarification. 03/04/2025 Hyperlipidemia, mixed (ICD-10 - E78.2) 04/08/2025 Hip pain, right (ICD-10 - M25.551) [place] is a 79-year-old female with past medical [...] Eliquis 5 mg daily. Follows closely with [facility] cardiology, Dr. Delarosa. Recently had cardiac stents [...] Dictation was accomplished with the use of Dacuda voice recognition software, which is prone to [...] Eliquis 5 mg daily. Follows closely with [facility] cardiology, Dr. Delarosa. Recently had cardiac stents [...] Dictation was accomplished with the use of Dacuda voice recognition software, which is prone to medical misidentifications and grammatical errors. This are unintentional and the practitioner does try to identify and correct these, but some could still be present. Please do not hesitate to contact practitioner for clarification. 04/15/2025 Hyperlipidemia, mixed (ICD-10 - E78.2) [place] is a 79-year-old female with past medical [...] Eliquis 5 mg daily. Follows closely with [facility] cardiology, Dr. Delarosa. Recently had cardiac [...] Dictation was accomplished with the use of Dacuda voice recognition software, which is prone to [...] Eliquis 5 mg daily. Follows closely with [facility] cardiology, Dr. Delarosa. Recently had cardiac stents [...] Dictation was accomplished with the use of Dacuda voice recognition software, which is prone to medical misidentifications and grammatical errors. This are unintentional and the practitioner does try to identify and correct these, but some could still be present. Please do not hesitate to contact practitioner for clarification. 04/28/2025 Hyperlipidemia, mixed (ICD-10 - E78.2) [place] is a 79-year-old female with past medical [...] Eliquis 5 mg daily. Follows closely with [facility] cardiology, Dr. Delarosa. Recently had cardiac stents [...] Dictation was accomplished with the use of Dacuda voice recognition software, which is prone to [...] disc extrusion. Noted to be admitted to [facility] 05/11/2025 until 05/15/2025 due to concern [...] placed to her neurosurgeon, Dr. Tucker with [facility]. She was cleared for surgery by cardiology. She was referred to pain management due to patient request for morphine however pain management deferred to PCP/neurosurgery. Surgery scheduled 07/22/2025. No bowel or bladder incontinence or saddle anesthesia. #Paroxysmal atrial fibrillation: Regular rhythm. Denies palpitations or chest pain. Continue diltiazem 180 mg daily. Continue Eliquis 5 mg daily. Follows closely with [facility] cardiology, Dr. Delarosa. Recently had cardiac stents [...] Dictation was accomplished with the use of Dacuda voice recognition software, which is prone to [...] disc extrusion. Noted to be admitted to [facility] 05/11/2025 until 05/15/2025 due to concern [...] placed to her neurosurgeon, Dr. Tucker with [facility]. She was cleared for surgery by cardiology. She was referred to pain management due to patient request for morphine however pain management deferred to PCP/neurosurgery. Surgery scheduled 07/22/2025. No bowel or bladder incontinence or saddle anesthesia. #Paroxysmal atrial fibrillation: Regular rhythm. Denies palpitations or chest pain. Continue diltiazem 180 mg daily. Continue Eliquis 5 mg daily. Follows closely with [facility] cardiology, Dr. Delarosa. Recently had cardiac [...] Dictation was accomplished with the use of Dacuda voice recognition software, which is prone to [...] placed to her neurosurgeon, Dr. Tucker with [facility]. She was cleared for surgery by [...] Eliquis 5 mg daily. Follows closely with [facility] cardiology, Dr. Delarosa. Recently had cardiac stents [...] Dictation was accomplished with the use of Dacuda voice recognition software, which is prone to [...] placed to her neurosurgeon, Dr. Tucker with [facility]. She was cleared for surgery by [...] Eliquis 5 mg daily. Follows closely with [facility] cardiology, Dr. Delarosa. Recently had cardiac stents [...] Dictation was accomplished with the use of Dacuda voice recognition software, which is prone to medical misidentifications and grammatical errors. This are unintentional and the practitioner does try to identify and correct these, but some could still be present. Please do not hesitate to contact practitioner for clarification. 06/14/2025 Ear fullness, left (ICD-10 - H93.8X2) 06/22/2025 Type 2 diabetes mellitus without complications (ICD-10 - E11.9) St[place] is a 79-year-old female with past medical history of hyperlipidemia, paroxysmal atrial fibrillation, rate controlled, carotid artery stenosis, CKD, glaucoma, type 2 diabetes, gout, hypertension, John's esophagus, and CVA in 2021 who presents for follow up regarding blood sugars. #Type 2 diabetes with hypoglycemia: Since decreasing Tresiba from 36 units to 24 units daily, blood sugars have been more controlled. Average readings are 125 show and on freestyle hetal with no episodes of hypoglycemia. Continue freestyle hetal. Continue Tresiba 24 units daily. Patient and very involved with sugar readings and adjusting diet/supplementing sugar as needed. #Thyroid nodule: Incidental finding of [...] follow up with endocrinology for recommendations, referral to Dr. Hope placed today. #Disequilibrium: She states symptoms are worse with movement of her head. Likely BPPV. S/p bilateral ear lavage with improvement in symptoms. Continue vestibular therapy, initial appt 07/01/2025. 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 Urgent referral was placed to her neurosurgeon, Dr. Tucker with [facility]. She was cleared for surgery by cardiology. She was referred to pain management due to patient request for morphine however pain management deferred to PCP/neurosurgery. Surgery scheduled 07/22/2025. No bowel or bladder incontinence or saddle anesthesia. #Paroxysmal atrial fibrillation: Regular rhythm. Denies palpitations or chest pain. Continue diltiazem 180 mg daily, carvedilol 3.125 mg BID, and Eliquis 5 mg daily. Follows closely with [facility] cardiology, Dr. Delarosa. Recently had cardiac stents [...] 100 mg daily. Monitor kidney function #Hypertension: Blood pressure has been more controlled since adjustment of medications. At home, reportedly has readings 120 systolic over 60 diastolic. In office today, BP 138/80. Continue carvedilol 3.125 mg twice daily, furosemide 20 mg daily, diltiazem ER 240 mg daily, and lisinopril 40 mg daily. Continue to take BP at home and encouraged to call the office if readings are consistently greater than 140 systolic or 90 diastolic. Since increasing frequency of Lasix, plan for BMP and magnesium to evaluate for electrolyte abnormalities. #John's esophagus: Continue following with GI every 6 months. All questions have been answered to patient's satisfaction. Patient verbalized understanding of diagnosis and treatments explained. Advised to call sooner prior to next visit it any questions/concerns arise. Case discussed with collaborating physician Jitendra Okeefe who reviewed the assessment and plan. Chart, medications, labs, vital signs reviewed. Dictation was accomplished with the use of Dacuda voice recognition software, which is prone to medical misidentifications and grammatical errors. This are unintentional and the practitioner does try to identify and correct these, but some could still be present. Please do not hesitate to contact practitioner for clarification. 06/22/2025 Hyperlipidemia, mixed (ICD-10 - E78.2) [place] is a 79-year-old female with past medical history of hyperlipidemia, paroxysmal atrial fibrillation, rate controlled, carotid artery stenosis, CKD, glaucoma, type 2 diabetes, gout, hypertension, John's esophagus, and CVA in 2021 who presents for follow up regarding blood sugars. #Type 2 diabetes with hypoglycemia: Since decreasing Tresiba from 36 units to 24 units daily, blood sugars have been more controlled. Average readings are 125 show and on freestyle hetal with no episodes of hypoglycemia. Continue freestyle hetal. Continue Tresiba 24 units daily. Patient and very involved with sugar readings and adjusting diet/supplementing sugar as needed. #Thyroid nodule: Incidental finding of [...] follow up with endocrinology for recommendations, referral to Dr. Hope placed today. #Disequilibrium: She states symptoms are worse with movement of her head. Likely BPPV. S/p bilateral ear lavage with improvement in symptoms. Continue vestibular therapy, initial appt 07/01/2025. 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 Urgent referral was placed to her neurosurgeon, Dr. Tucker with [facility]. She was cleared for surgery by cardiology. She was referred to pain management due to patient request for morphine however pain management deferred to PCP/neurosurgery. Surgery scheduled 07/22/2025. No bowel or bladder incontinence or saddle anesthesia. #Paroxysmal atrial fibrillation: Regular rhythm. Denies palpitations or chest pain. Continue diltiazem 180 mg daily, carvedilol 3.125 mg BID, and Eliquis 5 mg daily. Follows closely with [facility] cardiology, Dr. Delarosa. Recently had cardiac stents [...] 100 mg daily. Monitor kidney function #Hypertension: Blood pressure has been more controlled since adjustment of medications. At home, reportedly has readings 120 systolic over 60 diastolic. In office today, BP 138/80. Continue carvedilol 3.125 mg twice daily, furosemide 20 mg daily, diltiazem ER 240 mg daily, and lisinopril 40 mg daily. Continue to take BP at home and encouraged to call the office if readings are consistently greater than 140 systolic or 90 diastolic. Since increasing frequency of Lasix, plan for BMP and magnesium to evaluate for electrolyte abnormalities. #John's esophagus: Continue following with GI every 6 months. All questions have been answered to patient's satisfaction. Patient verbalized understanding of diagnosis and treatments explained. Advised to call sooner prior to next visit it any questions/concerns arise. Case discussed with collaborating physician Jitendra Okeefe who reviewed the assessment and plan. Chart, medications, labs, vital signs reviewed. Dictation was accomplished with the use of Dacuda voice recognition software, which is prone to medical misidentifications and grammatical errors. This are unintentional and the practitioner does try to identify and correct these, but some could still be present. Please do not hesitate to contact practitioner for clarification. 07/20/2025 Left foot pain (ICD-10 - M79.672) St[place] is a 79-year-old female with past medical history of hyperlipidemia, paroxysmal atrial fibrillation, rate controlled, carotid artery stenosis, CKD, glaucoma, type 2 diabetes, gout, hypertension, John's esophagus, and CVA in 2021 who presents for follow up regarding insurance coverage of Tresiba. #Type 2 diabetes with hypoglycemia: Since decreasing Tresiba from 36 units to 24 units daily, blood sugars have been more controlled. Average readings are 120s shown on freestyle hetal with no episodes of hypoglycemia. Continue freestyle hetal. Continue Tresiba 24 units daily. Patient and very involved with sugar readings and adjusting diet/supplementing sugar as needed. She received a letter in the mail stating she was stable will no longer be covered this upcoming new year. Patient and expressed frustration due to now having very controlled sugars with no episodes of hypoglycemia. Will provide a letter to insurance for exception. Will follow-up response. #Left foot pain: Patient presented to urgent care last week due to left foot pain with associated edema, erythema, and a bony prominence. She states she had an x-ray performed which reportedly was normal. She was diagnosed with possible cellulitis versus gout and was given prednisone and an antibiotic that began with the letter C. She completed a few days of prednisone and 5 days of antibiotic. Today, she reports significant improvement. On exam, minimal swelling to the left foot and ankle without erythema or open wound. There is a palpable bony prominence noted to the dorsal-medial aspect of the foot, approximately 1 cm x 1 cm in size, minimal tenderness to palpation. Recommended repeat x-ray due to initial x-ray may be limited due to edema that has since resolved, however, patient declined. Informed patient to call the office if symptoms persist or worsen. Advised patient to call podiatry as well. #Thyroid nodule: Incidental finding of 2.2 cm [...] follow up with endocrinology for recommendations, referral to Dr. Hope placed last visit. 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 Urgent referral was placed to her neurosurgeon, Dr. Tucker with [facility]. She was cleared for surgery by cardiology. She was referred to pain management due to patient request for morphine however pain management deferred to PCP/neurosurgery. Surgery scheduled 07/22/2025. No bowel or bladder incontinence or saddle anesthesia. #Paroxysmal atrial fibrillation: Regular rhythm. Denies palpitations or chest pain. Continue diltiazem 180 mg daily, carvedilol 3.125 mg BID, and Eliquis 5 mg daily. Follows closely with [facility] cardiology, Dr. Delarosa. Recently had cardiac stents [...] 100 mg daily. Monitor kidney function #Hypertension: Blood pressure has been more controlled since adjustment of medications. At home, reportedly has readings 120 systolic over 60 diastolic. In office today, BP 138/70. Continue carvedilol 3.125 mg twice daily, furosemide 20 mg daily, diltiazem ER 240 mg daily, and lisinopril 40 mg daily. Continue to take BP at home and encouraged to call the office if readings are consistently greater than 140 systolic or 90 diastolic. Since increasing frequency of Lasix, plan for BMP and magnesium to evaluate for electrolyte abnormalities. #John's esophagus: Continue following with GI every 6 months. All questions have been answered to patient's satisfaction. Patient verbalized understanding of diagnosis and treatments explained. Advised to call sooner prior to next visit it any questions/concerns arise. Case discussed with collaborating physician Jitendra Okeefe who reviewed the assessment and plan. Chart, medications, labs, vital signs reviewed. Dictation was accomplished with the use of Dacuda voice recognition software, which is prone to medical misidentifications and grammatical errors. This are unintentional and the practitioner does try to identify and correct these, but some could still be present. Please do not hesitate to contact practitioner for clarification. 07/20/2025 Hyperlipidemia, mixed (ICD-10 - E78.2) [place] is a 79-year-old female with past medical history of hyperlipidemia, paroxysmal atrial fibrillation, rate controlled, carotid artery stenosis, CKD, glaucoma, type 2 diabetes, gout, hypertension, John's esophagus, and CVA in 2021 who presents for follow up regarding insurance coverage of Tresiba. #Type 2 diabetes with hypoglycemia: Since decreasing Tresiba from 36 units to 24 units daily, blood sugars have been more controlled. Average readings are 120s shown on freestyle hetla with no episodes of hypoglycemia. Continue freestyle hetal. Continue Tresiba 24 units daily. Patient and very involved with sugar readings and adjusting diet/supplementing sugar as needed. She received a letter in the mail stating she was stable will no longer be covered this upcoming new year. Patient and expressed frustration due to now having very controlled sugars with no episodes of hypoglycemia. Will provide a letter to insurance for exception. Will follow-up response. #Left foot pain: Patient presented to urgent care last week due to left foot pain with associated edema, erythema, and a bony prominence. She states she had an x-ray performed which reportedly was normal. She was diagnosed with possible cellulitis versus gout and was given prednisone and an antibiotic that began with the letter C. She completed a few days of prednisone and 5 days of antibiotic. Today, she reports significant improvement. On exam, minimal swelling to the left foot and ankle without erythema or open wound. There is a palpable bony prominence noted to the dorsal-medial aspect of the foot, approximately 1 cm x 1 cm in size, minimal tenderness to palpation. Recommended repeat x-ray due to initial x-ray may be limited due to edema that has since resolved, however, patient declined. Informed patient to call the office if symptoms persist or worsen. Advised patient to call podiatry as well. #Thyroid nodule: Incidental finding of 2.2 cm [...] follow up with endocrinology for recommendations, referral to Dr. Hope placed last visit. 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 Urgent referral was placed to her neurosurgeon, Dr. Tucker with [facility]. She was cleared for surgery by cardiology. She was referred to pain management due to patient request for morphine however pain management deferred to PCP/neurosurgery. Surgery scheduled 07/22/2025. No bowel or bladder incontinence or saddle anesthesia. #Paroxysmal atrial fibrillation: Regular rhythm. Denies palpitations or chest pain. Continue diltiazem 180 mg daily, carvedilol 3.125 mg BID, and Eliquis 5 mg daily. Follows closely with [facility] cardiology, Dr. Delarosa. Recently had cardiac [...] 100 mg daily. Monitor kidney function #Hypertension: Blood pressure has been more controlled since adjustment of medications. At home, reportedly has readings 120 systolic over 60 diastolic. In office today, BP 138/70. Continue carvedilol 3.125 mg twice daily, furosemide 20 mg daily, diltiazem ER 240 mg daily, and lisinopril 40 mg daily. Continue to take BP at home and encouraged to call the office if readings are consistently greater than 140 systolic or 90 diastolic. Since increasing frequency of Lasix, plan for BMP and magnesium to evaluate for electrolyte abnormalities. #John's esophagus: Continue following with GI every 6 months. All questions have been answered to patient's satisfaction. Patient verbalized understanding of diagnosis and treatments explained. Advised to call sooner prior to next visit it any questions/concerns arise. Case discussed with collaborating physician Jitendra Okeefe who reviewed the assessment and plan. Chart, medications, labs, vital signs reviewed. Dictation was accomplished with the use of Dacuda voice recognition software, which is prone to medical misidentifications and grammatical errors. This are unintentional and the practitioner does try to identify and correct these, but some could still be present. Please do not hesitate to contact practitioner for clarification. 07/20/2025 Diabetes type 2, controlled (ICD-10 - E11.9) Electronic Prior Authorization was requested for Tresiba 100 UNIT/ML Solution. Provider can order medication once approval received. 06/22/2025 Hypertension, essential (ICD-10 - I10) St[place] is a 79-year-old female with past medical history of hyperlipidemia, paroxysmal atrial fibrillation, rate controlled, carotid artery stenosis, CKD, glaucoma, type 2 diabetes, gout, hypertension, John's esophagus, and CVA in 2021 who presents for follow up regarding blood sugars. #Type 2 diabetes with hypoglycemia: Since decreasing Tresiba from 36 units to 24 units daily, blood sugars have been more controlled. Average readings are 125 show and on freestyle hetal with no episodes of hypoglycemia. Continue freestyle hetal. Continue Tresiba 24 units daily. Patient and very involved with sugar readings and adjusting diet/supplementing sugar as needed. #Thyroid nodule: Incidental finding of [...] follow up with endocrinology for recommendations, referral to Dr. Hope placed today. #Disequilibrium: She states symptoms are worse with movement of her head. Likely BPPV. S/p bilateral ear lavage with improvement in symptoms. Continue vestibular therapy, initial appt 07/01/2025. 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 Urgent referral was placed to her neurosurgeon, Dr. Tucker with [facility]. She was cleared for surgery by cardiology. She was referred to pain management due to patient request for morphine however pain management deferred to PCP/neurosurgery. Surgery scheduled 07/22/2025. No bowel or bladder incontinence or saddle anesthesia. #Paroxysmal atrial fibrillation: Regular rhythm. Denies palpitations or chest pain. Continue diltiazem 180 mg daily, carvedilol 3.125 mg BID, and Eliquis 5 mg daily. Follows closely with [facility] cardiology, Dr. Delarosa. Recently had cardiac stents [...] 100 mg daily. Monitor kidney function #Hypertension: Blood pressure has been more controlled since adjustment of medications. At home, reportedly has readings 120 systolic over 60 diastolic. In office today, BP 138/80. Continue carvedilol 3.125 mg twice daily, furosemide 20 mg daily, diltiazem ER 240 mg daily, and lisinopril 40 mg daily. Continue to take BP at home and encouraged to call the office if readings are consistently greater than 140 systolic or 90 diastolic. Since increasing frequency of Lasix, plan for BMP and magnesium to evaluate for electrolyte abnormalities. #John's esophagus: Continue following with GI every 6 months. All questions have been answered to patient's satisfaction. Patient verbalized understanding of diagnosis and treatments explained. Advised to call sooner prior to next visit it any questions/concerns arise. Case discussed with collaborating physician Jitendra Okeefe who reviewed the assessment and plan. Chart, medications, labs, vital signs reviewed. Dictation was accomplished with the use of Dacuda voice recognition software, which is prone to medical misidentifications and grammatical errors. This are unintentional and the practitioner does try to identify and correct these, but some could still be present. Please do not hesitate to contact practitioner for clarification. 07/20/2025 Type 2 diabetes mellitus without complications (ICD-10 - E11.9) Starr is a 79-year-old female with past medical history of hyperlipidemia, paroxysmal atrial fibrillation, rate controlled, carotid artery stenosis, CKD, glaucoma, type 2 diabetes, gout, hypertension, John's esophagus, and CVA in 2021 who presents for follow up regarding insurance coverage of Tresiba. #Type 2 diabetes with hypoglycemia: Since decreasing Tresiba from 36 units to 24 units daily, blood sugars have been more controlled. Average readings are 120s shown on freestyle hetal with no episodes of hypoglycemia. Continue freestyle hetal. Continue Tresiba 24 units daily. Patient and very involved with sugar readings and adjusting diet/supplementing sugar as needed. She received a letter in the mail stating she was stable will no longer be covered this upcoming new year. Patient and expressed frustration due to now having very controlled sugars with no episodes of hypoglycemia. Will provide a letter to insurance for exception. Will follow-up response. #Left foot pain: Patient presented to urgent care last week due to left foot pain with associated edema, erythema, and a bony prominence. She states she had an x-ray performed which reportedly was normal. She was diagnosed with possible cellulitis versus gout and was given prednisone and an antibiotic that began with the letter C. She completed a few days of prednisone and 5 days of antibiotic. Today, she reports significant improvement. On exam, minimal swelling to the left foot and ankle without erythema or open wound. There is a palpable bony prominence noted to the dorsal-medial aspect of the foot, approximately 1 cm x 1 cm in size, minimal tenderness to palpation. Recommended repeat x-ray due to initial x-ray may be limited due to edema that has since resolved, however, patient declined. Informed patient to call the office if symptoms persist or worsen. Advised patient to call podiatry as well. #Thyroid nodule: Incidental finding of 2.2 cm [...] follow up with endocrinology for recommendations, referral to Dr. Hope placed last visit. 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 Urgent referral was placed to her neurosurgeon, Dr. Tucker with [facility]. She was cleared for surgery by cardiology. She was referred to pain management due to patient request for morphine however pain management deferred to PCP/neurosurgery. Surgery scheduled 07/22/2025. No bowel or bladder incontinence or saddle anesthesia. #Paroxysmal atrial fibrillation: Regular rhythm. Denies palpitations or chest pain. Continue diltiazem 180 mg daily, carvedilol 3.125 mg BID, and Eliquis 5 mg daily. Follows closely with [facility] cardiology, Dr. Delarosa. Recently had cardiac stents [...] 100 mg daily. Monitor kidney function #Hypertension: Blood pressure has been more controlled since adjustment of medications. At home, reportedly has readings 120 systolic over 60 diastolic. In office today, BP 138/70. Continue carvedilol 3.125 mg twice daily, furosemide 20 mg daily, diltiazem ER 240 mg daily, and lisinopril 40 mg daily. Continue to take BP at home and encouraged to call the office if readings are consistently greater than 140 systolic or 90 diastolic. Since increasing frequency of Lasix, plan for BMP and magnesium to evaluate for electrolyte abnormalities. #John's esophagus: Continue following with GI every 6 months. All questions have been answered to patient's satisfaction. Patient verbalized understanding of diagnosis and treatments explained. Advised to call sooner prior to next visit it any questions/concerns arise. Case discussed with collaborating physician Jitendra Okeefe who reviewed the assessment and plan. Chart, medications, labs, vital signs reviewed. Dictation was accomplished with the use of Dacuda voice recognition software, which is prone to medical misidentifications and grammatical errors. This are unintentional and the practitioner does try to identify and correct these, but some could still be present. Please do not hesitate to contact practitioner for clarification. 06/08/2025 Hypertension, essential (ICD-10 - I10) Starr [...] placed to her neurosurgeon, Dr. Tucker with [facility]. She was cleared for surgery by [...] Eliquis 5 mg daily. Follows closely with [facility] cardiology, Dr. Delarosa. Recently had cardiac stents [...] Dictation was accomplished with the use of Dacuda voice recognition software, which is prone to medical misidentifications and grammatical errors. This are unintentional and the practitioner does try to identify and correct these, but some could still be present. Please do not hesitate to contact practitioner for clarification. 06/14/2025 Ear fullness, right (ICD-10 - H93.8X1) 05/25/2025 Hyperlipidemia, mixed (ICD-10 - E78.2) [place] is a 79-year-old female with past medical history of hyperlipidemia, paroxysmal atrial fibrillation, rate controlled, carotid artery stenosis, CKD, glaucoma, type 2 diabetes, gout, hypertension, John's esophagus, and CVA in 2021 who presents for follow up regarding right thigh pain, found to have large disc extrusion. Noted to be admitted to [facility] 05/11/2025 until 05/15/2025 due to concern [...] placed to her neurosurgeon, Dr. Tucker with [facility]. She was cleared for surgery by cardiology. She was referred to pain management due to patient request for morphine however pain management deferred to PCP/neurosurgery. Surgery scheduled 07/22/2025. No bowel or bladder incontinence or saddle anesthesia. #Paroxysmal atrial fibrillation: Regular rhythm. Denies palpitations or chest pain. Continue diltiazem 180 mg daily. Continue Eliquis 5 mg daily. Follows closely with [facility] cardiology, Dr. Delarosa. Recently had cardiac stents [...] Dictation was accomplished with the use of Dacuda voice recognition software, which is prone to medical misidentifications and grammatical errors. This are unintentional and the practitioner does try to identify and correct these, but some could still be present. Please do not hesitate to contact practitioner for clarification. 04/28/2025 Hypertension, essential (ICD-10 - I10) Starr is [...] Eliquis 5 mg daily. Follows closely with [facility] cardiology, Dr. Delarosa. Recently had cardiac stents [...] Dictation was accomplished with the use of Dacuda voice recognition software, which is prone to [...] Eliquis 5 mg daily. Follows closely with [facility] cardiology, Dr. Delarosa. Recently had cardiac stents [...] Dictation was accomplished with the use of Dacuda voice recognition software, which is prone to medical misidentifications and grammatical errors. This are unintentional and the practitioner does try to identify and correct these, but some could still be present. Please do not hesitate to contact practitioner for clarification. 04/08/2025 Hypertension, essential (ICD-10 - I10) [place] is a 79-year-old female with past medical [...] Eliquis 5 mg daily. Follows closely with [facility] cardiology, Dr. Delarosa. Recently had cardiac stents [...] Dictation was accomplished with the use of Dacuda voice recognition software, which is prone to [...] regularly with dentist and eye doctor. Declines [employer] and further Pap smears. Up-to-date on all vaccines. She believes she is overdue with mammogram at [facility], plans to schedule. She will be due for repeat colonoscopy with endoscopy August 2025 when she discontinues Plavix. Believes she has had a bone density scan but unsure of date and results. #Paroxysmal atrial fibrillation: Rate controlled. Denies palpitations or chest pain. Continue diltiazem 180 mg daily. Continue Eliquis 5 mg daily. Follows closely with [facility] cardiology, Dr. Delarosa. Recently had cardiac stents [...] Dictation was accomplished with the use of Dacuda voice recognition software, which is prone to [...] regularly with dentist and eye doctor. Declines [employer] and further Pap smears. Up-to-date on all vaccines. She believes she is overdue with mammogram at [facility], plans to schedule. She will be due for repeat colonoscopy with endoscopy August 2025 when she discontinues Plavix. Believes she has had a bone density scan but unsure of date and results. #Paroxysmal atrial fibrillation: Rate controlled. Denies palpitations or chest pain. Continue diltiazem 180 mg daily. Continue Eliquis 5 mg daily. Follows closely with [facility] cardiology, Dr. Delarosa. Recently had cardiac stents [...] Dictation was accomplished with the use of Dacuda voice recognition software, which is prone to [...] Eliquis 5 mg daily. Follows closely with [facility] cardiology, Dr. Delarosa. Recently had cardiac [...] Dictation was accomplished with the use of Dacuda voice recognition software, which is prone to [...] Eliquis 5 mg daily. Follows closely with [facility] cardiology, Dr. Delarosa. Recently had cardiac stents [...] Dictation was accomplished with the use of Dacuda voice recognition software, which is prone to [...] Eliquis 5 mg daily. Follows closely with [facility] cardiology, Dr. Delarosa. Recently had cardiac [...] Dictation was accomplished with the use of Dacuda voice recognition software, which is prone to [...] placed to her neurosurgeon, Dr. Tucker with [facility]. She was cleared for surgery by [...] Eliquis 5 mg daily. Follows closely with [facility] cardiology, Dr. Delarosa. Recently had cardiac stents [...] Dictation was accomplished with the use of Dragon voice recognition software, which is prone to [...] disc extrusion. Noted to be admitted to [facility] 05/11/2025 until 05/15/2025 due to concern [...] placed to her neurosurgeon, Dr. Tucker with [facility]. She was cleared for surgery by cardiology. She was referred to pain management due to patient request for morphine however pain management deferred to PCP/neurosurgery. Surgery scheduled 07/22/2025. No bowel or bladder incontinence or saddle anesthesia. #Paroxysmal atrial fibrillation: Regular rhythm. Denies palpitations or chest pain. Continue diltiazem 180 mg daily. Continue Eliquis 5 mg daily. Follows closely with [facility] cardiology, Dr. Delarosa. Recently had cardiac stents [...] Dictation was accomplished with the use of Dacuda voice recognition software, which is prone to medical misidentifications and grammatical errors. This are unintentional and the practitioner does try to identify and correct these, but some could still be present. Please do not hesitate to contact practitioner for clarification. 06/22/2025 Stenosis of right carotid artery (ICD-10 - I65.21) Starr is a 79-year-old female with past medical history of hyperlipidemia, paroxysmal atrial fibrillation, rate controlled, carotid artery stenosis, CKD, glaucoma, type 2 diabetes, gout, hypertension, John's esophagus, and CVA in 2021 who presents for follow up regarding blood sugars. #Type 2 diabetes with hypoglycemia: Since decreasing Tresiba from 36 units to 24 units daily, blood sugars have been more controlled. Average readings are 125 show and on freestyle hetal with no episodes of hypoglycemia. Continue freestyle hetal. Continue Tresiba 24 units daily. Patient and very involved with sugar readings and adjusting diet/supplementing sugar as needed. #Thyroid nodule: Incidental finding of [...] follow up with endocrinology for recommendations, referral to Dr. Hope placed today. #Disequilibrium: She states symptoms are worse with movement of her head. Likely BPPV. S/p bilateral ear lavage with improvement in symptoms. Continue vestibular therapy, initial appt 07/01/2025. 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 Urgent referral was placed to her neurosurgeon, Dr. Tucker with [facility]. She was cleared for surgery by cardiology. She was referred to pain management due to patient request for morphine however pain management deferred to PCP/neurosurgery. Surgery scheduled 07/22/2025. No bowel or bladder incontinence or saddle anesthesia. #Paroxysmal atrial fibrillation: Regular rhythm. Denies palpitations or chest pain. Continue diltiazem 180 mg daily, carvedilol 3.125 mg BID, and Eliquis 5 mg daily. Follows closely with [facility] cardiology, Dr. Delarosa. Recently had cardiac stents [...] 100 mg daily. Monitor kidney function #Hypertension: Blood pressure has been more controlled since adjustment of medications. At home, reportedly has readings 120 systolic over 60 diastolic. In office today, BP 138/80. Continue carvedilol 3.125 mg twice daily, furosemide 20 mg daily, diltiazem ER 240 mg daily, and lisinopril 40 mg daily. Continue to take BP at home and encouraged to call the office if readings are consistently greater than 140 systolic or 90 diastolic. Since increasing frequency of Lasix, plan for BMP and magnesium to evaluate for electrolyte abnormalities. #John's esophagus: Continue following with GI every 6 months. All questions have been answered to patient's satisfaction. Patient verbalized understanding of diagnosis and treatments explained. Advised to call sooner prior to next visit it any questions/concerns arise. Case discussed with collaborating physician Jitendra Okeefe who reviewed the assessment and plan. Chart, medications, labs, vital signs reviewed. Dictation was accomplished with the use of Dacuda voice recognition software, which is prone to medical misidentifications and grammatical errors. This are unintentional and the practitioner does try to identify and correct these, but some could still be present. Please do not hesitate to contact practitioner for clarification. 07/20/2025 Hypertension, essential (ICD-10 - I10) Starr is a 79-year-old female with past medical history of hyperlipidemia, paroxysmal atrial fibrillation, rate controlled, carotid artery stenosis, CKD, glaucoma, type 2 diabetes, gout, hypertension, John's esophagus, and CVA in 2021 who presents for follow up regarding insurance coverage of Tresiba. #Type 2 diabetes with hypoglycemia: Since decreasing Tresiba from 36 units to 24 units daily, blood sugars have been more controlled. Average readings are 120s shown on freestyle hetal with no episodes of hypoglycemia. Continue freestyle hetal. Continue Tresiba 24 units daily. Patient and very involved with sugar readings and adjusting diet/supplementing sugar as needed. She received a letter in the mail stating she was stable will no longer be covered this upcoming new year. Patient and expressed frustration due to now having very controlled sugars with no episodes of hypoglycemia. Will provide a letter to insurance for exception. Will follow-up response. #Left foot pain: Patient presented to urgent care last week due to left foot pain with associated edema, erythema, and a bony prominence. She states she had an x-ray performed which reportedly was normal. She was diagnosed with possible cellulitis versus gout and was given prednisone and an antibiotic that began with the letter C. She completed a few days of prednisone and 5 days of antibiotic. Today, she reports significant improvement. On exam, minimal swelling to the left foot and ankle without erythema or open wound. There is a palpable bony prominence noted to the dorsal-medial aspect of the foot, approximately 1 cm x 1 cm in size, minimal tenderness to palpation. Recommended repeat x-ray due to initial x-ray may be limited due to edema that has since resolved, however, patient declined. Informed patient to call the office if symptoms persist or worsen. Advised patient to call podiatry as well. #Thyroid nodule: Incidental finding of 2.2 cm [...] follow up with endocrinology for recommendations, referral to Dr. Hope placed last visit. 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 Urgent referral was placed to her neurosurgeon, Dr. Tucker with [facility]. She was cleared for surgery by cardiology. She was referred to pain management due to patient request for morphine however pain management deferred to PCP/neurosurgery. Surgery scheduled 07/22/2025. No bowel or bladder incontinence or saddle anesthesia. #Paroxysmal atrial fibrillation: Regular rhythm. Denies palpitations or chest pain. Continue diltiazem 180 mg daily, carvedilol 3.125 mg BID, and Eliquis 5 mg daily. Follows closely with [facility] cardiology, Dr. Delarosa. Recently had cardiac stents [...] 100 mg daily. Monitor kidney function #Hypertension: Blood pressure has been more controlled since adjustment of medications. At home, reportedly has readings 120 systolic over 60 diastolic. In office today, BP 138/70. Continue carvedilol 3.125 mg twice daily, furosemide 20 mg daily, diltiazem ER 240 mg daily, and lisinopril 40 mg daily. Continue to take BP at home and encouraged to call the office if readings are consistently greater than 140 systolic or 90 diastolic. Since increasing frequency of Lasix, plan for BMP and magnesium to evaluate for electrolyte abnormalities. #John's esophagus: Continue following with GI every 6 months. All questions have been answered to patient's satisfaction. Patient verbalized understanding of diagnosis and treatments explained. Advised to call sooner prior to next visit it any questions/concerns arise. Case discussed with collaborating physician Jitendra Okeefe who reviewed the assessment and plan. Chart, medications, labs, vital signs reviewed. Dictation was accomplished with the use of Dacuda voice recognition software, which is prone to medical misidentifications and grammatical errors. This are unintentional and the practitioner does try to identify and correct these, but some could still be present. Please do not hesitate to contact practitioner for clarification. 07/20/2025 Stenosis of right carotid artery (ICD-10 - I65.21) Starr is a 79-year-old female with past medical history of hyperlipidemia, paroxysmal atrial fibrillation, rate controlled, carotid artery stenosis, CKD, glaucoma, type 2 diabetes, gout, hypertension, John's esophagus, and CVA in 2021 who presents for follow up regarding insurance coverage of Tresiba. #Type 2 diabetes with hypoglycemia: Since decreasing Tresiba from 36 units to 24 units daily, blood sugars have been more controlled. Average readings are 120s shown on freestyle hetal with no episodes of hypoglycemia. Continue freestyle hetal. Continue Tresiba 24 units daily. Patient and very involved with sugar readings and adjusting diet/supplementing sugar as needed. She received a letter in the mail stating she was stable will no longer be covered this upcoming new year. Patient and expressed frustration due to now having very controlled sugars with no episodes of hypoglycemia. Will provide a letter to insurance for exception. Will follow-up response. #Left foot pain: Patient presented to urgent care last week due to left foot pain with associated edema, erythema, and a bony prominence. She states she had an x-ray performed which reportedly was normal. She was diagnosed with possible cellulitis versus gout and was given prednisone and an antibiotic that began with the letter C. She completed a few days of prednisone and 5 days of antibiotic. Today, she reports significant improvement. On exam, minimal swelling to the left foot and ankle without erythema or open wound. There is a palpable bony prominence noted to the dorsal-medial aspect of the foot, approximately 1 cm x 1 cm in size, minimal tenderness to palpation. Recommended repeat x-ray due to initial x-ray may be limited due to edema that has since resolved, however, patient declined. Informed patient to call the office if symptoms persist or worsen. Advised patient to call podiatry as well. #Thyroid nodule: Incidental finding of 2.2 cm [...] follow up with endocrinology for recommendations, referral to Dr. Hope placed last visit. 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 Urgent referral was placed to her neurosurgeon, Dr. Tucker with [facility]. She was cleared for surgery by cardiology. She was referred to pain management due to patient request for morphine however pain management deferred to PCP/neurosurgery. Surgery scheduled 07/22/2025. No bowel or bladder incontinence or saddle anesthesia. #Paroxysmal atrial fibrillation: Regular rhythm. Denies palpitations or chest pain. Continue diltiazem 180 mg daily, carvedilol 3.125 mg BID, and Eliquis 5 mg daily. Follows closely with [facility] cardiology, Dr. Delarosa. Recently had cardiac stents [...] 100 mg daily. Monitor kidney function #Hypertension: Blood pressure has been more controlled since adjustment of medications. At home, reportedly has readings 120 systolic over 60 diastolic. In office today, BP 138/70. Continue carvedilol 3.125 mg twice daily, furosemide 20 mg daily, diltiazem ER 240 mg daily, and lisinopril 40 mg daily. Continue to take BP at home and encouraged to call the office if readings are consistently greater than 140 systolic or 90 diastolic. Since increasing frequency of Lasix, plan for BMP and magnesium to evaluate for electrolyte abnormalities. #John's esophagus: Continue following with GI every 6 months. All questions have been answered to patient's satisfaction. Patient verbalized understanding of diagnosis and treatments explained. Advised to call sooner prior to next visit it any questions/concerns arise. Case discussed with collaborating physician Jitendra Okeefe who reviewed the assessment and plan. Chart, medications, labs, vital signs reviewed. Dictation was accomplished with the use of Dacuda voice recognition software, which is prone to medical misidentifications and grammatical errors. This are unintentional and the practitioner does try to identify and correct these, but some could still be present. Please do not hesitate to contact practitioner for clarification. 06/22/2025 Chronic gout of left foot, unspecified cause (ICD-10 - M1A.0720) [place] is a 79-year-old female with past medical history of hyperlipidemia, paroxysmal atrial fibrillation, rate controlled, carotid artery stenosis, CKD, glaucoma, type 2 diabetes, gout, hypertension, John's esophagus, and CVA in 2021 who presents for follow up regarding blood sugars. #Type 2 diabetes with hypoglycemia: Since decreasing Tresiba from 36 units to 24 units daily, blood sugars have been more controlled. Average readings are 125 show and on freestyle hetal with no episodes of hypoglycemia. Continue freestyle hetal. Continue Tresiba 24 units daily. Patient and very involved with sugar readings and adjusting diet/supplementing sugar as needed. #Thyroid nodule: Incidental finding of [...] follow up with endocrinology for recommendations, referral to Dr. Hope placed today. #Disequilibrium: She states symptoms are worse with movement of her head. Likely BPPV. S/p bilateral ear lavage with improvement in symptoms. Continue vestibular therapy, initial appt 07/01/2025. 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 Urgent referral was placed to her neurosurgeon, Dr. Tucker with [facility]. She was cleared for surgery by cardiology. She was referred to pain management due to patient request for morphine however pain management deferred to PCP/neurosurgery. Surgery scheduled 07/22/2025. No bowel or bladder incontinence or saddle anesthesia. #Paroxysmal atrial fibrillation: Regular rhythm. Denies palpitations or chest pain. Continue diltiazem 180 mg daily, carvedilol 3.125 mg BID, and Eliquis 5 mg daily. Follows closely with [facility] cardiology, Dr. Delarosa. Recently had cardiac stents [...] 100 mg daily. Monitor kidney function #Hypertension: Blood pressure has been more controlled since adjustment of medications. At home, reportedly has readings 120 systolic over 60 diastolic. In office today, BP 138/80. Continue carvedilol 3.125 mg twice daily, furosemide 20 mg daily, diltiazem ER 240 mg daily, and lisinopril 40 mg daily. Continue to take BP at home and encouraged to call the office if readings are consistently greater than 140 systolic or 90 diastolic. Since increasing frequency of Lasix, plan for BMP and magnesium to evaluate for electrolyte abnormalities. #John's esophagus: Continue following with GI every 6 months. All questions have been answered to patient's satisfaction. Patient verbalized understanding of diagnosis and treatments explained. Advised to call sooner prior to next visit it any questions/concerns arise. Case discussed with collaborating physician Jitendra Okeefe who reviewed the assessment and plan. Chart, medications, labs, vital signs reviewed. Dictation was accomplished with the use of Dacuda voice recognition software, which is prone to medical misidentifications and grammatical errors. This are unintentional and the practitioner does try to identify and correct these, but some could still be present. Please do not hesitate to contact practitioner for clarification. 06/08/2025 Chronic gout of left foot, unspecified cause (ICD-10 - M1A.0720) [place] is a 79-year-old female with past medical [...] placed to her neurosurgeon, Dr. Tucker with [facility]. She was cleared for surgery by [...] Eliquis 5 mg daily. Follows closely with [facility] cardiology, Dr. Delarosa. Recently had cardiac [...] Dictation was accomplished with the use of Dacuda voice recognition software, which is prone to [...] disc extrusion. Noted to be admitted to [facility] 05/11/2025 until 05/15/2025 due to concern [...] placed to her neurosurgeon, Dr. Tucker with [facility]. She was cleared for surgery by cardiology. She was referred to pain management due to patient request for morphine however pain management deferred to PCP/neurosurgery. Surgery scheduled 07/22/2025. No bowel or bladder incontinence or saddle anesthesia. #Paroxysmal atrial fibrillation: Regular rhythm. Denies palpitations or chest pain. Continue diltiazem 180 mg daily. Continue Eliquis 5 mg daily. Follows closely with [facility] cardiology, Dr. Delarosa. Recently had cardiac stents [...] Dictation was accomplished with the use of Dacuda voice recognition software, which is prone to medical misidentifications and grammatical errors. This are unintentional and the practitioner does try to identify and correct these, but some could still be present. Please do not hesitate to contact practitioner for clarification. 04/15/2025 Chronic gout of left foot, unspecified cause (ICD-10 - M1A.0720) [place] is a 79-year-old female with past medical [...] Eliquis 5 mg daily. Follows closely with [facility] cardiology, Dr. Delarosa. Recently had cardiac stents [...] Dictation was accomplished with the use of Dacuda voice recognition software, which is prone to [...] Eliquis 5 mg daily. Follows closely with [facility] cardiology, Dr. Delarosa. Recently had cardiac stents [...] Dictation was accomplished with the use of Dacuda voice recognition software, which is prone to [...] Eliquis 5 mg daily. Follows closely with [facility] cardiology, Dr. Delarosa. Recently had cardiac stents [...] Dictation was accomplished with the use of Dacuda voice recognition software, which is prone to [...] regularly with dentist and eye doctor. Declines [employer] and further Pap smears. Up-to-date on all vaccines. She believes she is overdue with mammogram at [facility], plans to schedule. She will be due for repeat colonoscopy with endoscopy August 2025 when she discontinues Plavix. Believes she has had a bone density scan but unsure of date and results. #Paroxysmal atrial fibrillation: Rate controlled. Denies palpitations or chest pain. Continue diltiazem 180 mg daily. Continue Eliquis 5 mg daily. Follows closely with [facility] cardiology, Dr. Delarosa. Recently had cardiac stents [...] Dictation was accomplished with the use of Dacuda voice recognition software, which is prone to [...] regularly with dentist and eye doctor. Declines [employer] and further Pap smears. Up-to-date on all vaccines. She believes she is overdue with mammogram at [facility], plans to schedule. She will be due for repeat colonoscopy with endoscopy August 2025 when she discontinues Plavix. Believes she has had a bone density scan but unsure of date and results. #Paroxysmal atrial fibrillation: Rate controlled. Denies palpitations or chest pain. Continue diltiazem 180 mg daily. Continue Eliquis 5 mg daily. Follows closely with [facility] cardiology, Dr. Delarosa. Recently had cardiac stents [...] Dictation was accomplished with the use of Dacuda voice recognition software, which is prone to medical misidentifications and grammatical errors. This are unintentional and the practitioner does try to identify and correct these, but some could still be present. Please do not hesitate to contact practitioner for clarification. 04/08/2025 Paroxysmal atrial fibrillation (ICD-10 - I48.0) [place] is a 79-year-old female with past medical [...] Eliquis 5 mg daily. Follows closely with [facility] cardiology, Dr. Delarosa. Recently had cardiac [...] Dictation was accomplished with the use of Dacuda voice recognition software, which is prone to medical misidentifications and grammatical errors. This are unintentional and the practitioner does try to identify and correct these, but some could still be present. Please do not hesitate to contact practitioner for clarification. 03/04/2025 Vitamin D deficiency (ICD-10 - E55.9) 04/15/2025 Paroxysmal atrial fibrillation (ICD-10 - I48.0) St[place] [...] Eliquis 5 mg daily. Follows closely with [facility] cardiology, Dr. Delarosa. Recently had cardiac stents [...] Dictation was accomplished with the use of Dacuda voice recognition software, which is prone to medical misidentifications and grammatical errors. This are unintentional and the practitioner does try to identify and correct these, but some could still be present. Please do not hesitate to contact practitioner for clarification. 04/28/2025 Paroxysmal atrial fibrillation (ICD-10 - I48.0) [place] is a 79-year-old female with past medical [...] Eliquis 5 mg daily. Follows closely with [facility] cardiology, Dr. Delarosa. Recently had cardiac stents [...] Dictation was accomplished with the use of Dragon voice recognition software, which is prone to [...] disc extrusion. Noted to be admitted to [facility] 05/11/2025 until 05/15/2025 due to concern [...] placed to her neurosurgeon, Dr. Tucker with [facility]. She was cleared for surgery by cardiology. She was referred to pain management due to patient request for morphine however pain management deferred to PCP/neurosurgery. Surgery scheduled 07/22/2025. No bowel or bladder incontinence or saddle anesthesia. #Paroxysmal atrial fibrillation: Regular rhythm. Denies palpitations or chest pain. Continue diltiazem 180 mg daily. Continue Eliquis 5 mg daily. Follows closely with [facility] cardiology, Dr. Delarosa. Recently had cardiac stents [...] Dictation was accomplished with the use of Dacuda voice recognition software, which is prone to [...] placed to her neurosurgeon, Dr. Tucker with [facility]. She was cleared for surgery by [...] Eliquis 5 mg daily. Follows closely with [facility] cardiology, Dr. Delarosa. Recently had cardiac stents [...] Dictation was accomplished with the use of Dacuda voice recognition software, which is prone to medical misidentifications and grammatical errors. This are unintentional and the practitioner does try to identify and correct these, but some could still be present. Please do not hesitate to contact practitioner for clarification. 06/22/2025 Paroxysmal atrial fibrillation (ICD-10 - I48.0) [place] is a 79-year-old female with past medical history of hyperlipidemia, paroxysmal atrial fibrillation, rate controlled, carotid artery stenosis, CKD, glaucoma, type 2 diabetes, gout, hypertension, John's esophagus, and CVA in 2021 who presents for follow up regarding blood sugars. #Type 2 diabetes with hypoglycemia: Since decreasing Tresiba from 36 units to 24 units daily, blood sugars have been more controlled. Average readings are 125 show and on freestyle hetal with no episodes of hypoglycemia. Continue freestyle hetal. Continue Tresiba 24 units daily. Patient and very involved with sugar readings and adjusting diet/supplementing sugar as needed. #Thyroid nodule: Incidental finding of [...] follow up with endocrinology for recommendations, referral to Dr. Hope placed today. #Disequilibrium: She states symptoms are worse with movement of her head. Likely BPPV. S/p bilateral ear lavage with improvement in symptoms. Continue vestibular therapy, initial appt 07/01/2025. 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 Urgent referral was placed to her neurosurgeon, Dr. Tucker with [facility]. She was cleared for surgery by cardiology. She was referred to pain management due to patient request for morphine however pain management deferred to PCP/neurosurgery. Surgery scheduled 07/22/2025. No bowel or bladder incontinence or saddle anesthesia. #Paroxysmal atrial fibrillation: Regular rhythm. Denies palpitations or chest pain. Continue diltiazem 180 mg daily, carvedilol 3.125 mg BID, and Eliquis 5 mg daily. Follows closely with [...] 100 mg daily. Monitor kidney function #Hypertension: Blood pressure has been more controlled since adjustment of medications. At home, reportedly has readings 120 systolic over 60 diastolic. In office today, BP 138/80. Continue carvedilol 3.125 mg twice daily, furosemide 20 mg daily, diltiazem ER 240 mg daily, and lisinopril 40 mg daily. Continue to take BP at home and encouraged to call the office if readings are consistently greater than 140 systolic or 90 diastolic. Since increasing frequency of Lasix, plan for BMP and magnesium to evaluate for electrolyte abnormalities. #John's esophagus: Continue following with GI every 6 months. All questions have been answered to patient's satisfaction. Patient verbalized understanding of diagnosis and treatments explained. Advised to call sooner prior to next visit it any questions/concerns arise. Case discussed with collaborating physician Jitendra Okeefe who reviewed the assessment and plan. Chart, medications, labs, vital signs reviewed. Dictation was accomplished with the use of Dacuda voice recognition software, which is prone to medical misidentifications and grammatical errors. This are unintentional and the practitioner does try to identify and correct these, but some could still be present. Please do not hesitate to contact practitioner for clarification. 07/20/2025 Chronic gout of left foot, unspecified cause (ICD-10 - M1A.0720) [place] is a 79-year-old female with past medical history of hyperlipidemia, paroxysmal atrial fibrillation, rate controlled, carotid artery stenosis, CKD, glaucoma, type 2 diabetes, gout, hypertension, John's esophagus, and CVA in 2021 who presents for follow up regarding insurance coverage of Tresiba. #Type 2 diabetes with hypoglycemia: Since decreasing Tresiba from 36 units to 24 units daily, blood sugars have been more controlled. Average readings are 120s shown on freestyle hetal with no episodes of hypoglycemia. Continue freestyle hetal. Continue Tresiba 24 units daily. Patient and very involved with sugar readings and adjusting diet/supplementing sugar as needed. She received a letter in the mail stating she was stable will no longer be covered this upcoming new year. Patient and expressed frustration due to now having very controlled sugars with no episodes of hypoglycemia. Will provide a letter to insurance for exception. Will follow-up response. #Left foot pain: Patient presented to urgent care last week due to left foot pain with associated edema, erythema, and a bony prominence. She states she had an x-ray performed which reportedly was normal. She was diagnosed with possible cellulitis versus gout and was given prednisone and an antibiotic that began with the letter C. She completed a few days of prednisone and 5 days of antibiotic. Today, she reports significant improvement. On exam, minimal swelling to the left foot and ankle without erythema or open wound. There is a palpable bony prominence noted to the dorsal-medial aspect of the foot, approximately 1 cm x 1 cm in size, minimal tenderness to palpation. Recommended repeat x-ray due to initial x-ray may be limited due to edema that has since resolved, however, patient declined. Informed patient to call the office if symptoms persist or worsen. Advised patient to call podiatry as well. #Thyroid nodule: Incidental finding of 2.2 cm [...] follow up with endocrinology for recommendations, referral to Dr. Hope placed last visit. 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 Urgent referral was placed to her neurosurgeon, Dr. Tucker with [facility]. She was cleared for surgery by cardiology. She was referred to pain management due to patient request for morphine however pain management deferred to PCP/neurosurgery. Surgery scheduled 07/22/2025. No bowel or bladder incontinence or saddle anesthesia. #Paroxysmal atrial fibrillation: Regular rhythm. Denies palpitations or chest pain. Continue diltiazem 180 mg daily, carvedilol 3.125 mg BID, and Eliquis 5 mg daily. Follows closely with [facility] cardiology, Dr. Delarosa. Recently had cardiac stents [...] 100 mg daily. Monitor kidney function #Hypertension: Blood pressure has been more controlled since adjustment of medications. At home, reportedly has readings 120 systolic over 60 diastolic. In office today, BP 138/70. Continue carvedilol 3.125 mg twice daily, furosemide 20 mg daily, diltiazem ER 240 mg daily, and lisinopril 40 mg daily. Continue to take BP at home and encouraged to call the office if readings are consistently greater than 140 systolic or 90 diastolic. Since increasing frequency of Lasix, plan for BMP and magnesium to evaluate for electrolyte abnormalities. #John's esophagus: Continue following with GI every 6 months. All questions have been answered to patient's satisfaction. Patient verbalized understanding of diagnosis and treatments explained. Advised to call sooner prior to next visit it any questions/concerns arise. Case discussed with collaborating physician Jitendra Okeefe who reviewed the assessment and plan. Chart, medications, labs, vital signs reviewed. Dictation was accomplished with the use of Dacuda voice recognition software, which is prone to medical misidentifications and grammatical errors. This are unintentional and the practitioner does try to identify and correct these, but some could still be present. Please do not hesitate to contact practitioner for clarification. 06/22/2025 John's esophagus with dysplasia (ICD-10 - K22.719) [place] is a 79-year-old female with past medical history of hyperlipidemia, paroxysmal atrial fibrillation, rate controlled, carotid artery stenosis, CKD, glaucoma, type 2 diabetes, gout, hypertension, John's esophagus, and CVA in 2021 who presents for follow up regarding blood sugars. #Type 2 diabetes with hypoglycemia: Since decreasing Tresiba from 36 units to 24 units daily, blood sugars have been more controlled. Average readings are 125 show and on freestyle hetal with no episodes of hypoglycemia. Continue freestyle hetal. Continue Tresiba 24 units daily. Patient and very involved with sugar readings and adjusting diet/supplementing sugar as needed. #Thyroid nodule: Incidental finding of [...] follow up with endocrinology for recommendations, referral to Dr. Hope placed today. #Disequilibrium: She states symptoms are worse with movement of her head. Likely BPPV. S/p bilateral ear lavage with improvement in symptoms. Continue vestibular therapy, initial appt 07/01/2025. 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 Urgent referral was placed to her neurosurgeon, Dr. Tucker with [facility]. She was cleared for surgery by cardiology. She was referred to pain management due to patient request for morphine however pain management deferred to PCP/neurosurgery. Surgery scheduled 07/22/2025. No bowel or bladder incontinence or saddle anesthesia. #Paroxysmal atrial fibrillation: Regular rhythm. Denies palpitations or chest pain. Continue diltiazem 180 mg daily, carvedilol 3.125 mg BID, and Eliquis 5 mg daily. Follows closely with [facility] cardiology, Dr. Delarosa. Recently had cardiac stents [...] 100 mg daily. Monitor kidney function #Hypertension: Blood pressure has been more controlled since adjustment of medications. At home, reportedly has readings 120 systolic over 60 diastolic. In office today, BP 138/80. Continue carvedilol 3.125 mg twice daily, furosemide 20 mg daily, diltiazem ER 240 mg daily, and lisinopril 40 mg daily. Continue to take BP at home and encouraged to call the office if readings are consistently greater than 140 systolic or 90 diastolic. Since increasing frequency of Lasix, plan for BMP and magnesium to evaluate for electrolyte abnormalities. #John's esophagus: Continue following with GI every 6 months. All questions have been answered to patient's satisfaction. Patient verbalized understanding of diagnosis and treatments explained. Advised to call sooner prior to next visit it any questions/concerns arise. Case discussed with collaborating physician Jitendra Okeefe who reviewed the assessment and plan. Chart, medications, labs, vital signs reviewed. Dictation was accomplished with the use of Dacuda voice recognition software, which is prone to medical misidentifications and grammatical errors. This are unintentional and the practitioner does try to identify and correct these, but some could still be present. Please do not hesitate to contact practitioner for clarification. 07/20/2025 Paroxysmal atrial fibrillation (ICD-10 - I48.0) [place] is a 79-year-old female with past medical history of hyperlipidemia, paroxysmal atrial fibrillation, rate controlled, carotid artery stenosis, CKD, glaucoma, type 2 diabetes, gout, hypertension, John's esophagus, and CVA in 2021 who presents for follow up regarding insurance coverage of Tresiba. #Type 2 diabetes with hypoglycemia: Since decreasing Tresiba from 36 units to 24 units daily, blood sugars have been more controlled. Average readings are 120s shown on freestyle hetal with no episodes of hypoglycemia. Continue freestyle hetal. Continue Tresiba 24 units daily. Patient and very involved with sugar readings and adjusting diet/supplementing sugar as needed. She received a letter in the mail stating she was stable will no longer be covered this upcoming new year. Patient and expressed frustration due to now having very controlled sugars with no episodes of hypoglycemia. Will provide a letter to insurance for exception. Will follow-up response. #Left foot pain: Patient presented to urgent care last week due to left foot pain with associated edema, erythema, and a bony prominence. She states she had an x-ray performed which reportedly was normal. She was diagnosed with possible cellulitis versus gout and was given prednisone and an antibiotic that began with the letter C. She completed a few days of prednisone and 5 days of antibiotic. Today, she reports significant improvement. On exam, minimal swelling to the left foot and ankle without erythema or open wound. There is a palpable bony prominence noted to the dorsal-medial aspect of the foot, approximately 1 cm x 1 cm in size, minimal tenderness to palpation. Recommended repeat x-ray due to initial x-ray may be limited due to edema that has since resolved, however, patient declined. Informed patient to call the office if symptoms persist or worsen. Advised patient to call podiatry as well. #Thyroid nodule: Incidental finding of 2.2 cm [...] follow up with endocrinology for recommendations, referral to Dr. Hope placed last visit. 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 Urgent referral was placed to her neurosurgeon, Dr. Tucker with [facility]. She was cleared for surgery by cardiology. She was referred to pain management due to patient request for morphine however pain management deferred to PCP/neurosurgery. Surgery scheduled 07/22/2025. No bowel or bladder incontinence or saddle anesthesia. #Paroxysmal atrial fibrillation: Regular rhythm. Denies palpitations or chest pain. Continue diltiazem 180 mg daily, carvedilol 3.125 mg BID, and Eliquis 5 mg daily. Follows closely with [facility] cardiology, Dr. Delarosa. Recently had cardiac stents [...] 100 mg daily. Monitor kidney function #Hypertension: Blood pressure has been more controlled since adjustment of medications. At home, reportedly has readings 120 systolic over 60 diastolic. In office today, BP 138/70. Continue carvedilol 3.125 mg twice daily, furosemide 20 mg daily, diltiazem ER 240 mg daily, and lisinopril 40 mg daily. Continue to take BP at home and encouraged to call the office if readings are consistently greater than 140 systolic or 90 diastolic. Since increasing frequency of Lasix, plan for BMP and magnesium to evaluate for electrolyte abnormalities. #John's esophagus: Continue following with GI every 6 months. All questions have been answered to patient's satisfaction. Patient verbalized understanding of diagnosis and treatments explained. Advised to call sooner prior to next visit it any questions/concerns arise. Case discussed with collaborating physician Jitendra Okeefe who reviewed the assessment and plan. Chart, medications, labs, vital signs reviewed. Dictation was accomplished with the use of Dacuda voice recognition software, which is prone to medical misidentifications and grammatical errors. This are unintentional and the practitioner does try to identify and correct these, but some could still be present. Please do not hesitate to contact practitioner for clarification. 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 Tucker with [facility]. She was cleared for surgery by [...] Eliquis 5 mg daily. Follows closely with [facility] cardiology, Dr. Delarosa. Recently had cardiac stents [...] Dictation was accomplished with the use of Dacuda voice recognition software, which is prone to medical misidentifications and grammatical errors. This are unintentional and the practitioner does try to identify and correct these, but some could still be present. Please do not hesitate to contact practitioner for clarification. 05/25/2025 Paroxysmal atrial fibrillation (ICD-10 - I48.0) Starr is a 79-year-old female with past medical history of hyperlipidemia, paroxysmal atrial fibrillation, rate controlled, carotid artery stenosis, CKD, glaucoma, type 2 diabetes, gout, hypertension, John's esophagus, and CVA in 2021 who presents for follow up regarding right thigh pain, found to have large disc extrusion. Noted to be admitted to [facility] 05/11/2025 until 05/15/2025 due to concern [...] placed to her neurosurgeon, Dr. Tucker with [facility]. She was cleared for surgery by cardiology. She was referred to pain management due to patient request for morphine however pain management deferred to PCP/neurosurgery. Surgery scheduled 07/22/2025. No bowel or bladder incontinence or saddle anesthesia. #Paroxysmal atrial fibrillation: Regular rhythm. Denies palpitations or chest pain. Continue diltiazem 180 mg daily. Continue Eliquis 5 mg daily. Follows closely with [facility] cardiology, Dr. Delarosa. Recently had cardiac stents [...] Dictation was accomplished with the use of Dacuda voice recognition software, which is prone to medical misidentifications and grammatical errors. This are unintentional and the practitioner does try to identify and correct these, but some could still be present. Please do not hesitate to contact practitioner for clarification. 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 Follows closely with [facility] cardiology, Dr. Delarosa. Recently had cardiac stents [...] Dictation was accomplished with the use of Dacuda voice recognition software, which is prone to medical misidentifications and grammatical errors. This are unintentional and the practitioner does try to identify and correct these, but some could still be present. Please do not hesitate to contact practitioner for clarification. 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 Follows closely with [facility] cardiology, Dr. Delarosa. Recently had cardiac stents [...] Dictation was accomplished with the use of Dacuda voice recognition software, which is prone to [...] Eliquis 5 mg daily. Follows closely with [facility] cardiology, Dr. Delarosa. Recently had cardiac stents [...] Dictation was accomplished with the use of Dacuda voice recognition software, which is prone to [...] regularly with dentist and eye doctor. Declines [employer] and further Pap smears. Up-to-date on all vaccines. She believes she is overdue with mammogram at [facility], plans to schedule. She will be due for repeat colonoscopy with endoscopy August 2025 when she discontinues Plavix. Believes she has had a bone density scan but unsure of date and results. #Paroxysmal atrial fibrillation: Rate controlled. Denies palpitations or chest pain. Continue diltiazem 180 mg daily. Continue Eliquis 5 mg daily. Follows closely with [facility] cardiology, Dr. Delarosa. Recently had cardiac stents [...] Dictation was accomplished with the use of Dacuda voice recognition software, which is prone to [...] regularly with dentist and eye doctor. Declines [employer] and further Pap smears. Up-to-date on all vaccines. She believes she is overdue with mammogram at [facility], plans to schedule. She will be due for repeat colonoscopy with endoscopy August 2025 when she discontinues Plavix. Believes she has had a bone density scan but unsure of date and results. #Paroxysmal atrial fibrillation: Rate controlled. Denies palpitations or chest pain. Continue diltiazem 180 mg daily. Continue Eliquis 5 mg daily. Follows closely with [facility] cardiology, Dr. Delarosa. Recently had cardiac stents [...] Dictation was accomplished with the use of Dacuda voice recognition software, which is prone to medical misidentifications and grammatical errors. This are unintentional and the practitioner does try to identify and correct these, but some could still be present. Please do not hesitate to contact practitioner for clarification. 04/08/2025 Diabetes type 2, controlled (ICD-10 - E11.9) [place] is a 79-year-old female with past medical [...] Eliquis 5 mg daily. Follows closely with [facility] cardiology, Dr. Delarosa. Recently had cardiac stents [...] Dictation was accomplished with the use of Dacuda voice recognition software, which is prone to medical misidentifications and grammatical errors. This are unintentional and the practitioner does try to identify and correct these, but some could still be present. Please do not hesitate to contact practitioner for clarification. 04/15/2025 Diabetes type 2, controlled (ICD-10 - E11.9) Starr is a 79-year-old female with past [...] Eliquis 5 mg daily. Follows closely with [facility] cardiology, Dr. Delarosa. Recently had cardiac stents [...] Dictation was accomplished with the use of Dacuda voice recognition software, which is prone to medical misidentifications and grammatical errors. This are unintentional and the practitioner does try to identify and correct these, but some could still be present. Please do not hesitate to contact practitioner for clarification. 04/28/2025 Diabetes type 2, controlled (ICD-10 - E11.9) [place] is a 79-year-old female with past medical [...] Eliquis 5 mg daily. Follows closely with [facility] cardiology, Dr. Delarosa. Recently had cardiac stents [...] Dictation was accomplished with the use of Dacuda voice recognition software, which is prone to [...] disc extrusion. Noted to be admitted to [facility] 05/11/2025 until 05/15/2025 due to concern [...] placed to her neurosurgeon, Dr. Tucker with [facility]. She was cleared for surgery by cardiology. She was referred to pain management due to patient request for morphine however pain management deferred to PCP/neurosurgery. Surgery scheduled 07/22/2025. No bowel or bladder incontinence or saddle anesthesia. #Paroxysmal atrial fibrillation: Regular rhythm. Denies palpitations or chest pain. Continue diltiazem 180 mg daily. Continue Eliquis 5 mg daily. Follows closely with [facility] cardiology, Dr. Delarosa. Recently had cardiac stents [...] Dictation was accomplished with the use of Dacuda voice recognition software, which is prone to [...] placed to her neurosurgeon, Dr. Tucker with [facility]. She was cleared for surgery by [...] Eliquis 5 mg daily. Follows closely with [facility] cardiology, Dr. Delarosa. Recently had cardiac stents [...] Dictation was accomplished with the use of Dacuda voice recognition software, which is prone to medical misidentifications and grammatical errors. This are unintentional and the practitioner does try to identify and correct these, but some could still be present. Please do not hesitate to contact practitioner for clarification. 06/22/2025 Lumbar radiculopathy (ICD-10 - M54.16) Starr is a 79-year-old female with past medical history of hyperlipidemia, paroxysmal atrial fibrillation, rate controlled, carotid artery stenosis, CKD, glaucoma, type 2 diabetes, gout, hypertension, John's esophagus, and CVA in 2021 who presents for follow up regarding blood sugars. #Type 2 diabetes with hypoglycemia: Since decreasing Tresiba from 36 units to 24 units daily, blood sugars have been more controlled. Average readings are 125 show and on freestyle hetal with no episodes of hypoglycemia. Continue freestyle hetal. Continue Tresiba 24 units daily. Patient and very involved with sugar readings and adjusting diet/supplementing sugar as needed. #Thyroid nodule: Incidental finding of [...] follow up with endocrinology for recommendations, referral to Dr. Hope placed today. #Disequilibrium: She states symptoms are worse with movement of her head. Likely BPPV. S/p bilateral ear lavage with improvement in symptoms. Continue vestibular therapy, initial appt 07/01/2025. 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 Urgent referral was placed to her neurosurgeon, Dr. Tucker with [facility]. She was cleared for surgery by cardiology. She was referred to pain management due to patient request for morphine however pain management deferred to PCP/neurosurgery. Surgery scheduled 07/22/2025. No bowel or bladder incontinence or saddle anesthesia. #Paroxysmal atrial fibrillation: Regular rhythm. Denies palpitations or chest pain. Continue diltiazem 180 mg daily, carvedilol 3.125 mg BID, and Eliquis 5 mg daily. Follows closely with [facility] cardiology, Dr. Delarosa. Recently had cardiac stents [...] 100 mg daily. Monitor kidney function #Hypertension: Blood pressure has been more controlled since adjustment of medications. At home, reportedly has readings 120 systolic over 60 diastolic. In office today, BP 138/80. Continue carvedilol 3.125 mg twice daily, furosemide 20 mg daily, diltiazem ER 240 mg daily, and lisinopril 40 mg daily. Continue to take BP at home and encouraged to call the office if readings are consistently greater than 140 systolic or 90 diastolic. Since increasing frequency of Lasix, plan for BMP and magnesium to evaluate for electrolyte abnormalities. #John's esophagus: Continue following with GI every 6 months. All questions have been answered to patient's satisfaction. Patient verbalized understanding of diagnosis and treatments explained. Advised to call sooner prior to next visit it any questions/concerns arise. Case discussed with collaborating physician Jitendra Okeefe who reviewed the assessment and plan. Chart, medications, labs, vital signs reviewed. Dictation was accomplished with the use of Dacuda voice recognition software, which is prone to medical misidentifications and grammatical errors. This are unintentional and the practitioner does try to identify and correct these, but some could still be present. Please do not hesitate to contact practitioner for clarification. 07/20/2025 John's esophagus with dysplasia (ICD-10 - K22.719) Starr is a 79-year-old female with past medical history of hyperlipidemia, paroxysmal atrial fibrillation, rate controlled, carotid artery stenosis, CKD, glaucoma, type 2 diabetes, gout, hypertension, John's esophagus, and CVA in 2021 who presents for follow up regarding insurance coverage of Tresiba. #Type 2 diabetes with hypoglycemia: Since decreasing Tresiba from 36 units to 24 units daily, blood sugars have been more controlled. Average readings are 120s shown on freestyle hetal with no episodes of hypoglycemia. Continue freestyle hetal. Continue Tresiba 24 units daily. Patient and very involved with sugar readings and adjusting diet/supplementing sugar as needed. She received a letter in the mail stating she was stable will no longer be covered this upcoming new year. Patient and expressed frustration due to now having very controlled sugars with no episodes of hypoglycemia. Will provide a letter to insurance for exception. Will follow-up response. #Left foot pain: Patient presented to urgent care last week due to left foot pain with associated edema, erythema, and a bony prominence. She states she had an x-ray performed which reportedly was normal. She was diagnosed with possible cellulitis versus gout and was given prednisone and an antibiotic that began with the letter C. She completed a few days of prednisone and 5 days of antibiotic. Today, she reports significant improvement. On exam, minimal swelling to the left foot and ankle without erythema or open wound. There is a palpable bony prominence noted to the dorsal-medial aspect of the foot, approximately 1 cm x 1 cm in size, minimal tenderness to palpation. Recommended repeat x-ray due to initial x-ray may be limited due to edema that has since resolved, however, patient declined. Informed patient to call the office if symptoms persist or worsen. Advised patient to call podiatry as well. #Thyroid nodule: Incidental finding of 2.2 cm [...] follow up with endocrinology for recommendations, referral to Dr. Hope placed last visit. 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 Urgent referral was placed to her neurosurgeon, Dr. Tucker with [facility]. She was cleared for surgery by cardiology. She was referred to pain management due to patient request for morphine however pain management deferred to PCP/neurosurgery. Surgery scheduled 07/22/2025. No bowel or bladder incontinence or saddle anesthesia. #Paroxysmal atrial fibrillation: Regular rhythm. Denies palpitations or chest pain. Continue diltiazem 180 mg daily, carvedilol 3.125 mg BID, and Eliquis 5 mg daily. Follows closely with [facility] cardiology, Dr. Delarosa. Recently had cardiac stents [...] eye nightly #Gout: Follows with podiatry, Dr. O'Umberto, recently received a cortisone injection. She reports more frequent flares and did have a fall secondary to her toe pain reported to the hospital. Unable to tolerate NSAIDs or colchicine due to CKD. Continue allopurinol 100 mg daily. Monitor kidney function #Hypertension: Blood pressure has been more controlled since adjustment of medications. At home, reportedly has readings 120 systolic over 60 diastolic. In office today, BP 138/70. Continue carvedilol 3.125 mg twice daily, furosemide 20 mg daily, diltiazem ER 240 mg daily, and lisinopril 40 mg daily. Continue to take BP at home and encouraged to call the office if readings are consistently greater than 140 systolic or 90 diastolic. Since increasing frequency of Lasix, plan for BMP and magnesium to evaluate for electrolyte abnormalities. #John's esophagus: Continue following with GI every 6 months. All questions have been answered to patient's satisfaction. Patient verbalized understanding of diagnosis and treatments explained. Advised to call sooner prior to next visit it any questions/concerns arise. Case discussed with collaborating physician Jitendra Okeefe who reviewed the assessment and plan. Chart, medications, labs, vital signs reviewed. Dictation was accomplished with the use of Dacuda voice recognition software, which is prone to medical misidentifications and grammatical errors. This are unintentional and the practitioner does try to identify and correct these, but some could still be present. Please do not hesitate to contact practitioner for clarification. 07/20/2025 Lumbar radiculopathy (ICD-10 - M54.16) Starr is a 79-year-old female with past medical history of hyperlipidemia, paroxysmal atrial fibrillation, rate controlled, carotid artery stenosis, CKD, glaucoma, type 2 diabetes, gout, hypertension, John's esophagus, and CVA in 2021 who presents for follow up regarding insurance coverage of Tresiba. #Type 2 diabetes with hypoglycemia: Since decreasing Tresiba from 36 units to 24 units daily, blood sugars have been more controlled. Average readings are 120s shown on freestyle hetal with no episodes of hypoglycemia. Continue freestyle hetal. Continue Tresiba 24 units daily. Patient and very involved with sugar readings and adjusting diet/supplementing sugar as needed. She received a letter in the mail stating she was stable will no longer be covered this upcoming new year. Patient and expressed frustration due to now having very controlled sugars with no episodes of hypoglycemia. Will provide a letter to insurance for exception. Will follow-up response. #Left foot pain: Patient presented to urgent care last week due to left foot pain with associated edema, erythema, and a bony prominence. She states she had an x-ray performed which reportedly was normal. She was diagnosed with possible cellulitis versus gout and was given prednisone and an antibiotic that began with the letter C. She completed a few days of prednisone and 5 days of antibiotic. Today, she reports significant improvement. On exam, minimal swelling to the left foot and ankle without erythema or open wound. There is a palpable bony prominence noted to the dorsal-medial aspect of the foot, approximately 1 cm x 1 cm in size, minimal tenderness to palpation. Recommended repeat x-ray due to initial x-ray may be limited due to edema that has since resolved, however, patient declined. Informed patient to call the office if symptoms persist or worsen. Advised patient to call podiatry as well. #Thyroid nodule: Incidental finding of 2.2 cm [...] follow up with endocrinology for recommendations, referral to Dr. Hope placed last visit. 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 Urgent referral was placed to her neurosurgeon, Dr. Tucker with [facility]. She was cleared for surgery by cardiology. She was referred to pain management due to patient request for morphine however pain management deferred to PCP/neurosurgery. Surgery scheduled 07/22/2025. No bowel or bladder incontinence or saddle anesthesia. #Paroxysmal atrial fibrillation: Regular rhythm. Denies palpitations or chest pain. Continue diltiazem 180 mg daily, carvedilol 3.125 mg BID, and Eliquis 5 mg daily. Follows closely with [facility] cardiology, Dr. Delarosa. Recently had cardiac stents [...] 100 mg daily. Monitor kidney function #Hypertension: Blood pressure has been more controlled since adjustment of medications. At home, reportedly has readings 120 systolic over 60 diastolic. In office today, BP 138/70. Continue carvedilol 3.125 mg twice daily, furosemide 20 mg daily, diltiazem ER 240 mg daily, and lisinopril 40 mg daily. Continue to take BP at home and encouraged to call the office if readings are consistently greater than 140 systolic or 90 diastolic. Since increasing frequency of Lasix, plan for BMP and magnesium to evaluate for electrolyte abnormalities. #John's esophagus: Continue following with GI every 6 months. All questions have been answered to patient's satisfaction. Patient verbalized understanding of diagnosis and treatments explained. Advised to call sooner prior to next visit it any questions/concerns arise. Case discussed with collaborating physician Jitendra Okeefe who reviewed the assessment and plan. Chart, medications, labs, vital signs reviewed. Dictation was accomplished with the use of Dacuda voice recognition software, which is prone to medical misidentifications and grammatical errors. This are unintentional and the practitioner does try to identify and correct these, but some could still be present. Please do not hesitate to contact practitioner for clarification. 06/22/2025 Thyroid nodule (ICD-10 - E04.1) Starr is a 79-year-old female with past medical history of hyperlipidemia, paroxysmal atrial fibrillation, rate controlled, carotid artery stenosis, CKD, glaucoma, type 2 diabetes, gout, hypertension, John's esophagus, and CVA in 2021 who presents for follow up regarding blood sugars. #Type 2 diabetes with hypoglycemia: Since decreasing Tresiba from 36 units to 24 units daily, blood sugars have been more controlled. Average readings are 125 show and on freestyle hetal with no episodes of hypoglycemia. Continue freestyle hetal. Continue Tresiba 24 units daily. Patient and very involved with sugar readings and adjusting diet/supplementing sugar as needed. #Thyroid nodule: Incidental finding of [...] follow up with endocrinology for recommendations, referral to Dr. Hope placed today. #Disequilibrium: She states symptoms are worse with movement of her head. Likely BPPV. S/p bilateral ear lavage with improvement in symptoms. Continue vestibular therapy, initial appt 07/01/2025. 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 Urgent referral was placed to her neurosurgeon, Dr. Tucker with [facility]. She was cleared for surgery by cardiology. She was referred to pain management due to patient request for morphine however pain management deferred to PCP/neurosurgery. Surgery scheduled 07/22/2025. No bowel or bladder incontinence or saddle anesthesia. #Paroxysmal atrial fibrillation: Regular rhythm. Denies palpitations or chest pain. Continue diltiazem 180 mg daily, carvedilol 3.125 mg BID, and Eliquis 5 mg daily. Follows closely with [facility] cardiology, Dr. Delarosa. Recently had cardiac stents placed and continues on Plavix for 1 year until 08/2025. #Embolic stroke in 2022: Likely secondary to [...] 100 mg daily. Monitor kidney function #Hypertension: Blood pressure has been more controlled since adjustment of medications. At home, reportedly has readings 120 systolic over 60 diastolic. In office today, BP 138/80. Continue carvedilol 3.125 mg twice daily, furosemide 20 mg daily, diltiazem ER 240 mg daily, and lisinopril 40 mg daily. Continue to take BP at home and encouraged to call the office if readings are consistently greater than 140 systolic or 90 diastolic. Since increasing frequency of Lasix, plan for BMP and magnesium to evaluate for electrolyte abnormalities. #John's esophagus: Continue following with GI every 6 months. All questions have been answered to patient's satisfaction. Patient verbalized understanding of diagnosis and treatments explained. Advised to call sooner prior to next visit it any questions/concerns arise. Case discussed with collaborating physician Jitendra Okeefe who reviewed the assessment and plan. Chart, medications, labs, vital signs reviewed. Dictation was accomplished with the use of Dacuda voice recognition software, which is prone to [...] placed to her neurosurgeon, Dr. Tucker with [facility]. She was cleared for surgery by [...] Eliquis 5 mg daily. Follows closely with [facility] cardiology, Dr. Delarosa. Recently had cardiac stents [...] Dictation was accomplished with the use of Dacuda voice recognition software, which is prone to [...] disc extrusion. Noted to be admitted to [facility] 05/11/2025 until 05/15/2025 due to concern [...] placed to her neurosurgeon, Dr. Tucker with [facility]. She was cleared for surgery by cardiology. She was referred to pain management due to patient request for morphine however pain management deferred to PCP/neurosurgery. Surgery scheduled 07/22/2025. No bowel or bladder incontinence or saddle anesthesia. #Paroxysmal atrial fibrillation: Regular rhythm. Denies palpitations or chest pain. Continue diltiazem 180 mg daily. Continue Eliquis 5 mg daily. Follows closely with [facility] cardiology, Dr. Delarosa. Recently had cardiac stents placed and continues on Plavix for 1 year until 08/2025. Consider metoprolol succinate addition, encouraged patient to discuss with Dr. Ahmed next week. Advised patient to monitor HR [...] arise. Case discussed with collaborating physician Jitendra Oekefe who reviewed the assessment and plan. Chart, medications, labs, vital signs reviewed. Dictation was accomplished with the use of Dacuda voice recognition software, which is prone to [...] Eliquis 5 mg daily. Follows closely with [facility] cardiology, Dr. Delarosa. Recently had cardiac stents [...] Dictation was accomplished with the use of Dacuda voice recognition software, which is prone to medical misidentifications and grammatical errors. This are unintentional and the practitioner does try to identify and correct these, but some could still be present. Please do not hesitate to contact practitioner for clarification. 04/15/2025 Acute cystitis without hematuria (ICD-10 - N30.00) Starr is a 79-year-old female with past [...] Eliquis 5 mg daily. Follows closely with [facility] cardiology, Dr. Delarosa. Recently had cardiac stents [...] Dictation was accomplished with the use of Dacuda voice recognition software, which is prone to [...] Eliquis 5 mg daily. Follows closely with [facility] cardiology, Dr. Delarosa. Recently had cardiac stents [...] Dictation was accomplished with the use of Dacuda voice recognition software, which is prone to [...] regularly with dentist and eye doctor. Declines [employer] and further Pap smears. Up-to-date on all vaccines. She believes she is overdue with mammogram at [facility], plans to schedule. She will be due for repeat colonoscopy with endoscopy August 2025 when she discontinues Plavix. Believes she has had a bone density scan but unsure of date and results. #Paroxysmal atrial fibrillation: Rate controlled. Denies palpitations or chest pain. Continue diltiazem 180 mg daily. Continue Eliquis 5 mg daily. Follows closely with [facility] cardiology, Dr. Delarosa. Recently had cardiac stents [...] Dictation was accomplished with the use of Dragon voice recognition software, which is prone to [...] regularly with dentist and eye doctor. Declines [employer] and further Pap smears. Up-to-date on all vaccines. She believes she is overdue with mammogram at [facility], plans to schedule. She will be due for repeat colonoscopy with endoscopy August 2025 when she discontinues Plavix. Believes she has had a bone density scan but unsure of date and results. #Paroxysmal atrial fibrillation: Rate controlled. Denies palpitations or chest pain. Continue diltiazem 180 mg daily. Continue Eliquis 5 mg daily. Follows closely with [facility] cardiology, Dr. Delarosa. Recently had cardiac stents [...] Dictation was accomplished with the use of Dacuda voice recognition software, which is prone to [...] Eliquis 5 mg daily. Follows closely with [facility] cardiology, Dr. Delarosa. Recently had cardiac stents [...] Dictation was accomplished with the use of Dacuda voice recognition software, which is prone to [...] Eliquis 5 mg daily. Follows closely with [facility] cardiology, Dr. Delarosa. Recently had cardiac stents [...] Dictation was accomplished with the use of Dacuda voice recognition software, which is prone to medical misidentifications and grammatical errors. This are unintentional and the practitioner does try to identify and correct these, but some could still be present. Please do not hesitate to contact practitioner for clarification. 04/15/2025 Encounter for examination of blood pressure without abnormal findings (ICD-10 - Z01.30) [place] is a 79-year-old female with past medical [...] Eliquis 5 mg daily. Follows closely with [facility] cardiology, Dr. Delarosa. Recently had cardiac stents [...] Dictation was accomplished with the use of Dacuda voice recognition software, which is prone to [...] disc extrusion. Noted to be admitted to [facility] 05/11/2025 until 05/15/2025 due to concern [...] placed to her neurosurgeon, Dr. Tucker with [facility]. She was cleared for surgery by cardiology. She was referred to pain management due to patient request for morphine however pain management deferred to PCP/neurosurgery. Surgery scheduled 07/22/2025. No bowel or bladder incontinence or saddle anesthesia. #Paroxysmal atrial fibrillation: Regular rhythm. Denies palpitations or chest pain. Continue diltiazem 180 mg daily. Continue Eliquis 5 mg daily. Follows closely with [facility] cardiology, Dr. Delarosa. Recently had cardiac stents [...] Dictation was accomplished with the use of Dacuda voice recognition software, which is prone to [...] placed to her neurosurgeon, Dr. Tucker with [facility]. She was cleared for surgery by [...] Eliquis 5 mg daily. Follows closely with [facility] cardiology, Dr. Delarosa. Recently had cardiac stents [...] Dictation was accomplished with the use of Dacuda voice recognition software, which is prone to medical misidentifications and grammatical errors. This are unintentional and the practitioner does try to identify and correct these, but some could still be present. Please do not hesitate to contact practitioner for clarification. 06/22/2025 Benign paroxysmal positional vertigo, bilateral (ICD-10 - H81.13) Starr is a 79-year-old female with past medical history of hyperlipidemia, paroxysmal atrial fibrillation, rate controlled, carotid artery stenosis, CKD, glaucoma, type 2 diabetes, gout, hypertension, John's esophagus, and CVA in 2021 who presents for follow up regarding blood sugars. #Type 2 diabetes with hypoglycemia: Since decreasing Tresiba from 36 units to 24 units daily, blood sugars have been more controlled. Average readings are 125 show and on freestyle hetal with no episodes of hypoglycemia. Continue freestyle hetal. Continue Tresiba 24 units daily. Patient and very involved with sugar readings and adjusting diet/supplementing sugar as needed. #Thyroid nodule: Incidental finding of [...] follow up with endocrinology for recommendations, referral to Dr. Hope placed today. #Disequilibrium: She states symptoms are worse with movement of her head. Likely BPPV. S/p bilateral ear lavage with improvement in symptoms. Continue vestibular therapy, initial appt 07/01/2025. 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 Urgent referral was placed to her neurosurgeon, Dr. Tucker with [facility]. She was cleared for surgery by cardiology. She was referred to pain management due to patient request for morphine however pain management deferred to PCP/neurosurgery. Surgery scheduled 07/22/2025. No bowel or bladder incontinence or saddle anesthesia. #Paroxysmal atrial fibrillation: Regular rhythm. Denies palpitations or chest pain. Continue diltiazem 180 mg daily, carvedilol 3.125 mg BID, and Eliquis 5 mg daily. Follows closely with [facility] cardiology, Dr. Delarosa. Recently had cardiac stents [...] 100 mg daily. Monitor kidney function #Hypertension: Blood pressure has been more controlled since adjustment of medications. At home, reportedly has readings 120 systolic over 60 diastolic. In office today, BP 138/80. Continue carvedilol 3.125 mg twice daily, furosemide 20 mg daily, diltiazem ER 240 mg daily, and lisinopril 40 mg daily. Continue to take BP at home and encouraged to call the office if readings are consistently greater than 140 systolic or 90 diastolic. Since increasing frequency of Lasix, plan for BMP and magnesium to evaluate for electrolyte abnormalities. #John's esophagus: Continue following with GI every 6 months. All questions have been answered to patient's satisfaction. Patient verbalized understanding of diagnosis and treatments explained. Advised to call sooner prior to next visit it any questions/concerns arise. Case discussed with collaborating physician Jitendra Okeefe who reviewed the assessment and plan. Chart, medications, labs, vital signs reviewed. Dictation was accomplished with the use of Dacuda voice recognition software, which is prone to medical misidentifications and grammatical errors. This are unintentional and the practitioner does try to identify and correct these, but some could still be present. Please do not hesitate to contact practitioner for clarification. 07/20/2025 Thyroid nodule (ICD-10 - E04.1) Starr is a 79-year-old female with past medical history of hyperlipidemia, paroxysmal atrial fibrillation, rate controlled, carotid artery stenosis, CKD, glaucoma, type 2 diabetes, gout, hypertension, John's esophagus, and CVA in 2021 who presents for follow up regarding insurance coverage of Tresiba. #Type 2 diabetes with hypoglycemia: Since decreasing Tresiba from 36 units to 24 units daily, blood sugars have been more controlled. Average readings are 120s shown on freestyle hetal with no episodes of hypoglycemia. Continue freestyle hetal. Continue Tresiba 24 units daily. Patient and very involved with sugar readings and adjusting diet/supplementing sugar as needed. She received a letter in the mail stating she was stable will no longer be covered this upcoming new year. Patient and expressed frustration due to now having very controlled sugars with no episodes of hypoglycemia. Will provide a letter to insurance for exception. Will follow-up response. #Left foot pain: Patient presented to urgent care last week due to left foot pain with associated edema, erythema, and a bony prominence. She states she had an x-ray performed which reportedly was normal. She was diagnosed with possible cellulitis versus gout and was given prednisone and an antibiotic that began with the letter C. She completed a few days of prednisone and 5 days of antibiotic. Today, she reports significant improvement. On exam, minimal swelling to the left foot and ankle without erythema or open wound. There is a palpable bony prominence noted to the dorsal-medial aspect of the foot, approximately 1 cm x 1 cm in size, minimal tenderness to palpation. Recommended repeat x-ray due to initial x-ray may be limited due to edema that has since resolved, however, patient declined. Informed patient to call the office if symptoms persist or worsen. Advised patient to call podiatry as well. #Thyroid nodule: Incidental finding of 2.2 cm [...] follow up with endocrinology for recommendations, referral to Dr. Hope placed last visit. 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 Urgent referral was placed to her neurosurgeon, Dr. Tucker with [facility]. She was cleared for surgery by cardiology. She was referred to pain management due to patient request for morphine however pain management deferred to PCP/neurosurgery. Surgery scheduled 07/22/2025. No bowel or bladder incontinence or saddle anesthesia. #Paroxysmal atrial fibrillation: Regular rhythm. Denies palpitations or chest pain. Continue diltiazem 180 mg daily, carvedilol 3.125 mg BID, and Eliquis 5 mg daily. Follows closely with [facility] cardiology, Dr. Delarosa. Recently had cardiac stents [...] 100 mg daily. Monitor kidney function #Hypertension: Blood pressure has been more controlled since adjustment of medications. At home, reportedly has readings 120 systolic over 60 diastolic. In office today, BP 138/70. Continue carvedilol 3.125 mg twice daily, furosemide 20 mg daily, diltiazem ER 240 mg daily, and lisinopril 40 mg daily. Continue to take BP at home and encouraged to call the office if readings are consistently greater than 140 systolic or 90 diastolic. Since increasing frequency of Lasix, plan for BMP and magnesium to evaluate for electrolyte abnormalities. #John's esophagus: Continue following with GI every 6 months. All questions have been answered to patient's satisfaction. Patient verbalized understanding of diagnosis and treatments explained. Advised to call sooner prior to next visit it any questions/concerns arise. Case discussed with collaborating physician Jitendra Okeefe who reviewed the assessment and plan. Chart, medications, labs, vital signs reviewed. Dictation was accomplished with the use of Dacuda voice recognition software, which is prone to medical misidentifications and grammatical errors. This are unintentional and the practitioner does try to identify and correct these, but some could still be present. Please do not hesitate to contact practitioner for clarification. 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 #Type 2 diabetes with hypoglycemia: Since decreasing Tresiba from 36 units to 24 units daily, blood sugars have been more controlled. Average readings are 120s shown on freestyle hetal with no episodes of hypoglycemia. Continue freestyle hetal. Continue Tresiba 24 units daily. Patient and very involved with sugar readings and adjusting diet/supplementing sugar as needed. She received a letter in the mail stating she was stable will no longer be covered this upcoming new year. Patient and expressed frustration due to now having very controlled sugars with no episodes of hypoglycemia. Will provide a letter to insurance for exception. Will follow-up response. #Left foot pain: Patient presented to urgent care last week due to left foot pain with associated edema, erythema, and a bony prominence. She states she had an x-ray performed which reportedly was normal. She was diagnosed with possible cellulitis versus gout and was given prednisone and an antibiotic that began with the letter C. She completed a few days of prednisone and 5 days of antibiotic. Today, she reports significant improvement. On exam, minimal swelling to the left foot and ankle without erythema or open wound. There is a palpable bony prominence noted to the dorsal-medial aspect of the foot, approximately 1 cm x 1 cm in size, minimal tenderness to palpation. Recommended repeat x-ray due to initial x-ray may be limited due to edema that has since resolved, however, patient declined. Informed patient to call the office if symptoms persist or worsen. Advised patient to call podiatry as well. #Thyroid nodule: Incidental finding of 2.2 cm [...] follow up with endocrinology for recommendations, referral to Dr. Hope placed last visit. 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 Urgent referral was placed to her neurosurgeon, Dr. Tucker with [facility]. She was cleared for surgery by cardiology. She was referred to pain management due to patient request for morphine however pain management deferred to PCP/neurosurgery. Surgery scheduled 07/22/2025. No bowel or bladder incontinence or saddle anesthesia. #Paroxysmal atrial fibrillation: Regular rhythm. Denies palpitations or chest pain. Continue diltiazem 180 mg daily, carvedilol 3.125 mg BID, and Eliquis 5 mg daily. Follows closely with [facility] cardiology, Dr. Delarosa. Recently had cardiac stents [...] 100 mg daily. Monitor kidney function #Hypertension: Blood pressure has been more controlled since adjustment of medications. At home, reportedly has readings 120 systolic over 60 diastolic. In office today, BP 138/70. Continue carvedilol 3.125 mg twice daily, furosemide 20 mg daily, diltiazem ER 240 mg daily, and lisinopril 40 mg daily. Continue to take BP at home and encouraged to call the office if readings are consistently greater than 140 systolic or 90 diastolic. Since increasing frequency of Lasix, plan for BMP and magnesium to evaluate for electrolyte abnormalities. #John's esophagus: Continue following with GI every 6 months. All questions have been answered to patient's satisfaction. Patient verbalized understanding of diagnosis and treatments explained. Advised to call sooner prior to next visit it any questions/concerns arise. Case discussed with collaborating physician Jitendra Okeefe who reviewed the assessment and plan. Chart, medications, labs, vital signs reviewed. Dictation was accomplished with the use of Dacuda voice recognition software, which is prone to medical misidentifications and grammatical errors. This are unintentional and the practitioner does try to identify and correct these, but some could still be present. Please do not hesitate to contact practitioner for clarification. 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 #Type 2 diabetes with hypoglycemia: Since decreasing Tresiba from 36 units to 24 units daily, blood sugars have been more controlled. Average readings are 125 show and on freestyle hetal with no episodes of hypoglycemia. Continue freestyle hetal. Continue Tresiba 24 units daily. Patient and very involved with sugar readings and adjusting diet/supplementing sugar as needed. #Thyroid nodule: Incidental finding of [...] follow up with endocrinology for recommendations, referral to Dr. Hope placed today. #Disequilibrium: She states symptoms are worse with movement of her head. Likely BPPV. S/p bilateral ear lavage with improvement in symptoms. Continue vestibular therapy, initial appt 07/01/2025. 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 Urgent referral was placed to her neurosurgeon, Dr. Tucker with [facility]. She was cleared for surgery by cardiology. She was referred to pain management due to patient request for morphine however pain management deferred to PCP/neurosurgery. Surgery scheduled 07/22/2025. No bowel or bladder incontinence or saddle anesthesia. #Paroxysmal atrial fibrillation: Regular rhythm. Denies palpitations or chest pain. Continue diltiazem 180 mg daily, carvedilol 3.125 mg BID, and Eliquis 5 mg daily. Follows closely with [facility] cardiology, Dr. Delarosa. Recently had cardiac stents [...] 100 mg daily. Monitor kidney function #Hypertension: Blood pressure has been more controlled since adjustment of medications. At home, reportedly has readings 120 systolic over 60 diastolic. In office today, BP 138/80. Continue carvedilol 3.125 mg twice daily, furosemide 20 mg daily, diltiazem ER 240 mg daily, and lisinopril 40 mg daily. Continue to take BP at home and encouraged to call the office if readings are consistently greater than 140 systolic or 90 diastolic. Since increasing frequency of Lasix, plan for BMP and magnesium to evaluate for electrolyte abnormalities. #John's esophagus: Continue following with GI every 6 months. All questions have been answered to patient's satisfaction. Patient verbalized understanding of diagnosis and treatments explained. Advised to call sooner prior to next visit it any questions/concerns arise. Case discussed with collaborating physician Jitendra Okeefe who reviewed the assessment and plan. Chart, medications, labs, vital signs reviewed. Dictation was accomplished with the use of Dacuda voice recognition software, which is prone to [...] placed to her neurosurgeon, Dr. Tucker with [facility]. She was cleared for surgery by [...] Eliquis 5 mg daily. Follows closely with [facility] cardiology, Dr. Delarosa. Recently had cardiac stents [...] Dictation was accomplished with the use of Dacuda voice recognition software, which is prone to [...] disc extrusion. Noted to be admitted to [facility] 05/11/2025 until 05/15/2025 due to concern [...] placed to her neurosurgeon, Dr. Tucker with [facility]. She was cleared for surgery by cardiology. She was referred to pain management due to patient request for morphine however pain management deferred to PCP/neurosurgery. Surgery scheduled 07/22/2025. No bowel or bladder incontinence or saddle anesthesia. #Paroxysmal atrial fibrillation: Regular rhythm. Denies palpitations or chest pain. Continue diltiazem 180 mg daily. Continue Eliquis 5 mg daily. Follows closely with [facility] cardiology, Dr. Delarosa. Recently had cardiac stents [...] Dictation was accomplished with the use of Dacuda voice recognition software, which is prone to [...] placed to her neurosurgeon, Dr. Tucker with [facility]. She was cleared for surgery by [...] Eliquis 5 mg daily. Follows closely with [facility] cardiology, Dr. Delarosa. Recently had cardiac stents [...] Dictation was accomplished with the use of Dacuda voice recognition software, which is prone to [...] disc extrusion. Noted to be admitted to [facility] 05/11/2025 until 05/15/2025 due to concern [...] placed to her neurosurgeon, Dr. Tucker with [facility]. She was cleared for surgery by cardiology. She was referred to pain management due to patient request for morphine however pain management deferred to PCP/neurosurgery. Surgery scheduled 07/22/2025. No bowel or bladder incontinence or saddle anesthesia. #Paroxysmal atrial fibrillation: Regular rhythm. Denies palpitations or chest pain. Continue diltiazem 180 mg daily. Continue Eliquis 5 mg daily. Follows closely with [facility] cardiology, Dr. Delarosa. Recently had cardiac stents [...] Dictation was accomplished with the use of Dacuda voice recognition software, which is prone to medical misidentifications and grammatical errors. This are unintentional and the practitioner does try to identify and correct these, but some could still be present. Please do not hesitate to contact practitioner for clarification. 06/22/2025 Encounter for examination of blood pressure without abnormal findings (ICD-10 - Z01.30) Starr is a 79-year-old female with past medical history of hyperlipidemia, paroxysmal atrial fibrillation, rate controlled, carotid artery stenosis, CKD, glaucoma, type 2 diabetes, gout, hypertension, John's esophagus, and CVA in 2021 who presents for follow up regarding blood sugars. #Type 2 diabetes with hypoglycemia: Since decreasing Tresiba from 36 units to 24 units daily, blood sugars have been more controlled. Average readings are 125 show and on freestyle hetal with no episodes of hypoglycemia. Continue freestyle hetal. Continue Tresiba 24 units daily. Patient and very involved with sugar readings and adjusting diet/supplementing sugar as needed. #Thyroid nodule: Incidental finding of [...] follow up with endocrinology for recommendations, referral to Dr. Hope placed today. #Disequilibrium: She states symptoms are worse with movement of her head. Likely BPPV. S/p bilateral ear lavage with improvement in symptoms. Continue vestibular therapy, initial appt 07/01/2025. 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 Urgent referral was placed to her neurosurgeon, Dr. Tucker with [facility]. She was cleared for surgery by cardiology. She was referred to pain management due to patient request for morphine however pain management deferred to PCP/neurosurgery. Surgery scheduled 07/22/2025. No bowel or bladder incontinence or saddle anesthesia. #Paroxysmal atrial fibrillation: Regular rhythm. Denies palpitations or chest pain. Continue diltiazem 180 mg daily, carvedilol 3.125 mg BID, and Eliquis 5 mg daily. Follows closely with [facility] cardiology, Dr. Delarosa. Recently had cardiac stents [...] 100 mg daily. Monitor kidney function #Hypertension: Blood pressure has been more controlled since adjustment of medications. At home, reportedly has readings 120 systolic over 60 diastolic. In office today, BP 138/80. Continue carvedilol 3.125 mg twice daily, furosemide 20 mg daily, diltiazem ER 240 mg daily, and lisinopril 40 mg daily. Continue to take BP at home and encouraged to call the office if readings are consistently greater than 140 systolic or 90 diastolic. Since increasing frequency of Lasix, plan for BMP and magnesium to evaluate for electrolyte abnormalities. #John's esophagus: Continue following with GI every 6 months. All questions have been answered to patient's satisfaction. Patient verbalized understanding of diagnosis and treatments explained. Advised to call sooner prior to next visit it any questions/concerns arise. Case discussed with collaborating physician Jitendra Okeefe who reviewed the assessment and plan. Chart, medications, labs, vital signs reviewed. Dictation was accomplished with the use of Dacuda voice recognition software, which is prone to medical misidentifications and grammatical errors. This are unintentional and the practitioner does try to identify and correct these, but some could still be present. Please do not hesitate to contact practitioner for clarification. 07/20/2025 Encounter for examination of blood pressure without abnormal findings (ICD-10 - Z01.30) Starr is a 79-year-old female with past medical history of hyperlipidemia, paroxysmal atrial fibrillation, rate controlled, carotid artery stenosis, CKD, glaucoma, type 2 diabetes, gout, hypertension, John's esophagus, and CVA in 2021 who presents for follow up regarding insurance coverage of Tresiba. #Type 2 diabetes with hypoglycemia: Since decreasing Tresiba from 36 units to 24 units daily, blood sugars have been more controlled. Average readings are 120s shown on freestyle hetal with no episodes of hypoglycemia. Continue freestyle hetal. Continue Tresiba 24 units daily. Patient and very involved with sugar readings and adjusting diet/supplementing sugar as needed. She received a letter in the mail stating she was stable will no longer be covered this upcoming new year. Patient and expressed frustration due to now having very controlled sugars with no episodes of hypoglycemia. Will provide a letter to insurance for exception. Will follow-up response. #Left foot pain: Patient presented to urgent care last week due to left foot pain with associated edema, erythema, and a bony prominence. She states she had an x-ray performed which reportedly was normal. She was diagnosed with possible cellulitis versus gout and was given prednisone and an antibiotic that began with the letter C. She completed a few days of prednisone and 5 days of antibiotic. Today, she reports significant improvement. On exam, minimal swelling to the left foot and ankle without erythema or open wound. There is a palpable bony prominence noted to the dorsal-medial aspect of the foot, approximately 1 cm x 1 cm in size, minimal tenderness to palpation. Recommended repeat x-ray due to initial x-ray may be limited due to edema that has since resolved, however, patient declined. Informed patient to call the office if symptoms persist or worsen. Advised patient to call podiatry as well. #Thyroid nodule: Incidental finding of 2.2 cm [...] follow up with endocrinology for recommendations, referral to Dr. Hope placed last visit. 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 Urgent referral was placed to her neurosurgeon, Dr. Tucker with [facility]. She was cleared for surgery by cardiology. She was referred to pain management due to patient request for morphine however pain management deferred to PCP/neurosurgery. Surgery scheduled 07/22/2025. No bowel or bladder incontinence or saddle anesthesia. #Paroxysmal atrial fibrillation: Regular rhythm. Denies palpitations or chest pain. Continue diltiazem 180 mg daily, carvedilol 3.125 mg BID, and Eliquis 5 mg daily. Follows closely with [facility] cardiology, Dr. Delarosa. Recently had cardiac stents [...] 100 mg daily. Monitor kidney function #Hypertension: Blood pressure has been more controlled since adjustment of medications. At home, reportedly has readings 120 systolic over 60 diastolic. In office today, BP 138/70. Continue carvedilol 3.125 mg twice daily, furosemide 20 mg daily, diltiazem ER 240 mg daily, and lisinopril 40 mg daily. Continue to take BP at home and encouraged to call the office if readings are consistently greater than 140 systolic or 90 diastolic. Since increasing frequency of Lasix, plan for BMP and magnesium to evaluate for electrolyte abnormalities. #John's esophagus: Continue following with GI every 6 months. All questions have been answered to patient's satisfaction. Patient verbalized understanding of diagnosis and treatments explained. Advised to call sooner prior to next visit it any questions/concerns arise. Case discussed with collaborating physician Jitendra Okeefe who reviewed the assessment and plan. Chart, medications, labs, vital signs reviewed. Dictation was accomplished with the use of Dacuda voice recognition software, which is prone to [...] placed to her neurosurgeon, Dr. Tucker with [facility]. She was cleared for surgery by [...] Eliquis 5 mg daily. Follows closely with [facility] cardiology, Dr. Delarosa. Recently had cardiac stents [...] Dictation was accomplished with the use of Dacuda voice recognition software, which is prone to [...] 03/04/2025 VITAMIN B12 05/25/2025 VITAMIN B12 04/08/2025 BASIC METABOLIC PANEL (BMP) 06/22/2025 MAGNESIUM 06/22/2025 LIPID PANEL, STANDARD 04/08/2025 COMPREHENSIVE METABOLIC PANEL [...] Lavage 06/14/2025 Next Appt Details Provider Name:Katie dumont, 08/24/2025 11:00:00 AM, [address] [facility], [address], [place], [address], Insurance Providers Payer Name Payer Address Payer Phone Subscriber Number Group Number Insured Name Patient Relationship to Insured Coverage Start Date Coverage End Date Medicare Part B [id number] [address] [place] [id number] [address] [place], [place] Self - patient is the insured 1 [employer] [address] [place] [address] [phone] [id number] [address] [place], [place] Self - patient is the insured 1 Medical (General) History Medical History History ICD Code Hypertension, essential I10 Hyperlipidemia, mixed E78.2 Type 2 diabetes mellitus treated without insulin E11.9 glaucoma Paroxysmal atrial fibrillation I48.0 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
--- OUTSIDE RECORDS SUMMARY | 2025-08-11 08:55 | XMS_ITS | Encounter Summary ---
Author Organization [facility] Address [address] [place] [address] Care Team Providers Care Food Mixer Name Role Phone Finn Okeefe MD Primary Care Provider [phone] Encounter Details Date Type Department Care Team (Latest Contact Info) Description 09/22/2024 Lab Requisition [facility] - Main Lab [address] [facility] [place] [id number] Gabino Hayward PA 299 [facility] [address] [place] [address] Type 2 diabetes mellitus without complications (CMS/HCC [...] Care Team (Late st Contact Info) Description 09/30/2025 1:10 PM EST Consult [facility] [address] [facility] [address] [place] [phone] April Nicole, PROGRAM SUPERVISOR [address] [place] [address] [place] [address] documented as of this encounter Procedures Procedure [...] SST tube (09/22/2024 12:00 AM EST) Pathologist [facility] Extra Tube Hold for add-ons. 01/14/2025 7:52 AM EDT [facility] Comment:Auto resulted. Blood Venous blood specimen / Unknown 09/22/2024 09/22/2024 6:27 PM EST us Gabino BESS LAB BLOOD ORDERABLES Final Res ult [facility] [address] [place] [address], [place] [phone] * (ABNORMAL) CBC auto differential (09/22/2024 12:00 AM EST) [facility] WBC 10.6 4.8 - 10.8 K/mcL LAB HEMETOLOGY METHOD 09/22/2024 8:14 PM [facility] RBC 3.60(L) 3.80 - 4.80 M/mcL LAB HEMETOLOGY METHOD 09/22/2024 8:14 PM [facility] Hemoglobin 10.8(L) 11.5 - 16.0 g/dL LAB HEMETOLOGY METHOD 09/22/2024 8:14 PM [facility] Hematocrit 33.2(L) 35.0 - 47.0 % LAB HEMETOLOGY METHOD 09/22/2024 8:14 PM [facility] MCV 92.2 79.0 - 98.0 FL LAB HEMETOLOGY METHOD 09/22/2024 8:14 PM [facility] MCH 30.0 27.0 - 32.0 pcg LAB HEMETOLOGY METHOD 09/22/2024 8:14 PM [facility] MCHC 32.5 32.0 - 37.0 g/dL LAB HEMETOLOGY METHOD 09/22/2024 8:14 PM [facility] RDW 13.1 11.0 - 15.0 % LAB HEMETOLOGY METHOD 09/22/2024 8:14 PM [facility] Platelets 375 130 - 400 K/mcL LAB HEMETOLOGY METHOD 09/22/2024 8:14 PM [facility] MPV 10.2 7.0 - 11.0 FL LAB HEMETOLOGY METHOD 09/22/2024 8:14 PM [facility] NRBC 0.0 <1.0 % LAB HEMETOLOGY METHOD 09/22/2024 8:14 PM [facility] NRBC Absolute 0.00 <0.10 K/mcL LAB HEMETOLOGY METHOD 09/22/2024 8:14 PM [facility] Neutrophils Relative 76.7 % LAB HEMETOLOGY METHOD 09/22/2024 8:14 PM [facility] Lymphocytes Relative 17.4 % LAB HEMETOLOGY METHOD 09/22/2024 8:14 PM [facility] Monocytes Relative 4.2 % LAB HEMETOLOGY METHOD 09/22/2024 8:14 PM [facility] Eosinophils Relative 0.4 % LAB HEMETOLOGY METHOD 09/22/2024 8:14 PM [facility] Basophils Relative 0.8 % LAB HEMETOLOGY METHOD 09/22/2024 8:14 PM [facility] Immature Granulocytes Relative 0.5 % LAB HEMETOLOGY METHOD 09/22/2024 8:14 PM [facility] Neutrophils Absolute 8.15(H) 1.50 - 7.00 K/mcL LAB HEMETOLOGY METHOD 09/22/2024 8:14 PM EST [facility] Lymphocytes Absolute 1.85 1.00 - 5.00 K/[facility] LAB HEMETOLOGY METHOD 09/22/2024 8:14 PM EST [facility] Monocytes Absolute 0.45 0.20 - 1.00 K/[facility] LAB HEMETOLOGY METHOD 09/22/2024 8:14 PM EST [facility] Eosinophils Absolute 0.04 0.00 - 0.50 K/[facility] LAB HEMETOLOGY METHOD 09/22/2024 8:14 PM EST [facility] Basophils Absolute 0.08 0.00 - 0.20 K/[facility] LAB HEMETOLOGY METHOD 09/22/2024 8:14 PM [facility] Immature Granulocytes Absolute 0.05(H) 0.00 - 0.03 K/[facility] LAB HEMETOLOGY METHOD 09/22/2024 8:14 PM [facility] Blood Venous blood specimen / Unknown 09/22/2024 09/22/2024 6:27 PM EST us Gabino BESS LAB BLOOD ORDERABLES Final Res ult [facility] [address] [place] [address], * (ABNORMAL) Urinalysis microscopic only (09/22/2024 12:00 AM EST) RBC, Urine 3.0 0 - 4 /HPF LAB URINALYSIS - AUTOMATED METHOD 09/22/2024 8:05 PM [facility] WBC, Urine 12.1(H) 0 - 4 /HPF LAB URINALYSIS - AUTOMATED METHOD 09/22/2024 8:05 PM [facility] Squamous Epithelial, Urine >100(H) 0 - 60 /LPF LAB URINALYSIS - AUTOMATED METHOD 09/22/2024 8:05 PM [facility] Non-Squamous Epithelial, Urine 10-20 Transitional epithelial cells. /LPF 09/22/2024 8:05 PM [facility] Bacteria, Urine Moderate(A) Negative /HPF LAB URINALYSIS - AUTOMATED METHOD 09/22/2024 8:05 PM [facility] Hyaline Casts, Urine 2.8 0 - 3 /LPF LAB URINALYSIS - AUTOMATED METHOD 09/22/2024 8:05 PM [facility] Urine Urine specimen obtained by clean catch procedure / Unknown 09/22/2024 09/22/2024 6:27 PM EST Gabino BESS LAB URINE ORDERABLES Final Res ult Performing Organization Address [facility]/ZIP Co de Phone Number [facility] [address] [place] [address], [place] [phone] * Thyroid stimulating hormone (09/22/2024 12:00 AM EST) TSH 3.94 0.40 - 4.00 mcIU/mL LAB CHEMISTRY METHOD 09/22/2024 7:21 PM [facility] Blood Venous blood specimen / Unknown 09/22/2024 09/22/2024 6:27 PM EST Gabino BESS LAB BLOOD ORDERABLES Final Res ult [facility] [address] [place] [address], [place] [phone] * Thyroxine free (09/22/2024 12:00 AM EST) Free T4 1.19 0.70 - 1.80 ng/dL LAB CHEMISTRY METHOD 09/22/2024 7:21 PM [facility] Blood Venous blood specimen / Unknown 09/22/2024 09/22/2024 6:27 PM EST Gabino BESS LAB BLOOD ORDERABLES Final Res ult [facility] [address] [place] [address], [place] [phone] * Hemoglobin A1c (09/22/2024 12:00 AM EST) Pathologist [facility] Hemoglobin A1C 5.3 <6.5 % LAB CHEMISTRY METHOD 09/23/2024 12:41 PM EST [facility] Mean Bld Glu Estim. 105 mg/dL LAB CHEMISTRY METHOD 09/23/2024 12:41 PM [facility] Blood Venous blood specimen / Unknown 09/22/2024 09/22/2024 6:27 PM EST Gabino BESS LAB BLOOD ORDERABLES Final Res ult Performing Organization Address City/[facility]/ZIP Co de Phone Number [facility] [address] [place] [address], [place] [phone] * (ABNORMAL) Comprehensive metabolic panel (09/22/2024 12:00 AM EST) Pathologist [facility] Sodium 138 133 - 145 mmol/L LAB CHEMISTRY METHOD 09/22/2024 7:22 PM [facility] Potassium 4.1 3.5 - 5.5 mmol/L LAB CHEMISTRY METHOD 09/22/2024 7:22 PM [facility] Chloride 101 96 - 110 mmol/L LAB CHEMISTRY METHOD 09/22/2024 7:22 PM [facility] CO2 31 21 - 32 mmol/L LAB CHEMISTRY METHOD 09/22/2024 7:22 PM [facility] Anion Gap 6 3 - 11 LAB CHEMISTRY METHOD 09/22/2024 7:22 PM [facility] Glucose 102(H) 70 - 100 mg/dL LAB CHEMISTRY METHOD 09/22/2024 7:22 PM [facility] BUN 25 5 - 25 mg/dL LAB CHEMISTRY METHOD 09/22/2024 7:22 PM [facility] Creatinine 1.22(H) 0.50 - 1.10 mg/dL LAB CHEMISTRY METHOD 09/22/2024 7:22 PM [facility] eGFR 46(L) >=60 mL/min/1. 73m2 LAB CHEMISTRY METHOD 09/22/2024 7:22 PM [facility] Comment:Calculation based on the Chronic Kidney Disease Epidemiology Collaboration (CKD-EPI) equation refit without adjustment for race. BUN/Creatinine Ratio 20.5 LAB CHEMISTRY METHOD 09/22/2024 7:22 PM [facility] Calcium 10.5 8.5 - 10.5 mg/dL LAB CHEMISTRY METHOD 09/22/2024 7:22 PM [facility] AST (SGOT) 16 10 - 42 unit/L LAB CHEMISTRY METHOD 09/22/2024 7:22 PM [facility] ALT (SGPT) 17 10 - 60 unit/L LAB CHEMISTRY METHOD 09/22/2024 7:22 PM [facility] Alkaline Phosphatase 156(H) 42 - 121 unit/L LAB CHEMISTRY METHOD 09/22/2024 7:22 PM [facility] Total Protein 6.7 6.0 - 8.0 g/dL LAB CHEMISTRY METHOD 09/22/2024 7:22 PM [facility] Albumin 3.8 3.2 - 5.0 g/dL LAB CHEMISTRY METHOD 09/22/2024 7:22 PM [facility] Total Bilirubin 0.3 0.0 - 1.4 mg/dL LAB CHEMISTRY METHOD 09/22/2024 7:22 PM [facility] Blood Venous blood specimen / Unknown 09/22/2024 09/22/2024 6:27 PM EST us Gabino BESS LAB BLOOD ORDERABLES Final Res ult HUY [facility] ([facility] [address] [place] [address], documented in this encounter Visit Diagnoses Diagnosis Type 2 diabetes mellitus without complications (CMS/HCC V24, CMS/HCC V28) Interstitial cystitis (chronic) without hematuria Pain in unspecified joint Chronic fatigue, unspecified Other retention of urine documented in this encounter Care Teams Food Mixer Relationship Specialty Start Date End Date Finn Okeefe MD [address] [place] [id number] PCP - General Internal Medicine 06/02/25 documented as of this encounter
--- OUTSIDE RECORDS SUMMARY | 2025-08-11 08:55 | XMS_ITS | Patient Health Record ---
Author Organization [facility] [place] Address [address] [facility] [address] [place] [address] Care Team Providers Care Automobile Accessories Installer Name Role Phone Gabino Hayward Unavailable [phone] Migration, Provider Unavailable Unavailable Reason For Referral No Information Medications Medication SIG (Take, Route, Frequency, Duration) Notes Start Date End Date Status Ondansetron HCl 4 MG Tablet TAKE 1 TABLE T BY MOUTH EVERY 12 HOURS NEEDED; Duration: 10 Active Encounters Encounter Location Date Provider Diagnosis [facility], [address] [address] 08/25/2024 Provider Migration [facility], [address] [address] 09/01/2024 Provider Migration [facility], [address] [address] 09/01/2024 Gabino Hayward [facility], [address] [address] 09/22/2024 Provider Migration [facility], [address] [address] 10/06/2024 Gabino Hayward [facility] [place] [address] [address] 10/06/2024 Provider Migration [facility] [place] [address] [address] 10/09/2024 Gabino Hayward [facility] [place] [address] [address] 12/02/2024 Gabino Hayward [facility] [place] [address] [address] 12/09/2024 Gabino Hayward [facility], [address] [address] 01/27/2025 Gabino Hayward [facility] [place] [address] [facility] [address] [place] [address] 02/11/2025 Gabino Hayward [facility] [place] [address] [facility] [address] [place] [address] 02/11/2025 Gabino Hayward Plan Of Treatment No Information Insurance Providers Payer Name Payer Address Payer Phone Subscriber Number Group Number Insured Name Patient Relationship to Insured Coverage Start Date Coverage End Date A [employer] [address] [place] [address] [id number] [place], [place] Self - patient is the insured [facility] Indemnity Plan [address] [place] [address] [id number] [place], [place] Self - patient is the insured
--- OUTSIDE RECORDS SUMMARY | 2025-08-11 08:55 | XMS_ITS | Clinical Summary ---
Author Organization [facility] Address [address] [place] [address] Care Team Providers Care Private Eye Name Role Phone Cm Magallanes MD Primary Care Provider [phone] Allergies No known active allergies Medications aspirin [...] 2021 Influenza Vaccine 03/19/2025 04/19/2013 COVID-19 Vaccine (2024-2 6 season) 2025 Hepatitis B Vaccines Aged Out No long er eligible based on patient's age to complete this topic Insurance MEDICARE PART A & B [facility] MEDICAID [place] [facility] [place] [facility] Care Teams Private Eye Relationship Specialty Start Date End Date Cm Magallanes MD [address] [place] [address] PCP - General Family Medicine 03/27/22
--- OUTSIDE RECORDS SUMMARY | 2025-08-11 08:55 | XMS_ITS | Patient Health Record ---
Author Organization [facility] Address [address] [facility] [address] [place] [address] Care Team Providers Care Manager It Security Name Role Phone Whitney Okeefe Primary Care Provider GIO Donis Unavailable [phone] Allergies Allergen (clinical drug ingredient) Drug/Non Drug Allergy documented on EMR Reaction Allergy Type Onset Date Status Glucophage Unknown Drug Allergy Active simvastatin Zocor Unknown Drug Allergy Activ e Reason For Referral No Information Medications Medication SIG (Take, Route, Frequency, Duration) Notes Start Date End Date Status dilTIAZem HCl ER Coated Beads 180 MG 1 capsule Orally Once a day Active Fluticasone Propionate 50 MCG/ACT 1 spray in each nostril Nasally Once a day Not-Taking Latanoprost 0.005 % 1 drop into affected eye in the evening Ophthalmic Once a day Active Clopidogrel Bisulfate 75 MG 1 tablet Orally Once a day Active Lisinopril 5 MG 1 tablet Orally Once a day Active predniSONE 10 MG four tablets day 1, 2, 3 three tablets day 4,5,6 two tablets day 7,8,9 one tablet day 10,11,12 Orally Once a day; Duration: 12 days 12/21/2024 Not-Taking Alirocumab 75 MG/ML as directed Subcutaneous every 14 days Active Eliquis 5 MG 1 tablet Orally Twice a day Active Mirtazapine 45 MG 1 tablet at bedtime Orally Once a day Active Famotidine 20 MG 1 tablet at bedtime as needed Orally Once a day Not-Taking Tresiba 100 UNIT/ML as directed Subcutaneous 34units Active Acetaminophen 500 MG 1 tablet as needed Orally every 4 hrs Active Gabapentin 400 MG 1 capsule Orally twice a day Active Problems Problem Type SNOMED Code ICD Code Onset Dates Problem Status W/U Status Risk Notes Problem Peripheral vascular disease (054074009) PAD (peripheral artery disease) (I73.9) Active confirmed Problem Localized, primary osteoarthritis of the ankle and/or foot (838739720) 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4 degrees Fahrenheit 08/02/2025 Respiratory Rate 16 /min 08/02/2025 Height 5ft 5in in 08/02/2025 Weight 201.2 lbs 08/02/2025 BMI 33.48 kg/m2 08/02/2025 Procedures Procedure Date Ordered Date Performed Result Body Sit e DRAIN/INJECT, SMALL JOINT/BURSA 02/23/2025 N/A DRAIN/INJECT, SMALL JOINT/BURSA 08/02/2025 N/A Encounters Encounter Location Date Provider Diagnosis [facility] [address] 02/23/2025 GIO ONOFRE 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 ; Inflammation of metatarsophalangeal joint M19.079 ; Pain in joint, foot, left M25.572 and PAD (peripheral artery disease) I73.9 [facility] [address] 03/18/2025 GIO ONOFRE 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 Braxton was examined and evaluated. Past medical history reviewed. I also reviewed her recent records from her hospitalization at [facility] where she was found to have a uric acid of 9.2 and JUSTINE on top of CKD. Three weightbearing radiographs of the left foot were taken today. She has edematous soft tissue changes around the dorsomedial aspect of the 1st MTPJ with kenia sign to the medial metatarsal head. 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 She is not on any skilled nursing uric acid controlling medications. I discussed with her and her that this is something she needs to discuss with her new PCP or her pastoral counselor so that she does not continue to [...] was 9.2. She is not on any bed bug exterminator uric acid controlling medications. I discussed with her and her that this is something she needs to discuss with her new PCP or her pastoral counselor so that she does not continue to [...] can follow back with me as needed. 08/02/2025 Arthritis of left midfoot (ICD-10 - M19.072) Patient examined and evaluated. Past medical history reviewed. Three weightbearing radiographs of the left foot were taken in the office today and reviewed with the patient. She has chronic arthrosis to the midfoot especially around the 1st TMTJ with dorsal osteophytes. This has been present on all her radiographs. It sounds like she had another acute gout flare to this region. I again discussed that I can only treat the acute flare with either oral prednisone or injections due to her other medical co morbidities. She needs to discuss bed bug exterminator treatment of her gout flares with her PCP to see if she can get on something to control her uric acid. I wanted to avoid the oral prednisone today due to her recent spinal surgery. She agreed to try the injection. This was done into the left 1st TMTJ. She tolerated this well. She is to rest and ice over the next few days. She can follow back with me as needed. 08/02/2025 Acute gouty arthriti s (ICD-10 - M10.9) 02/23/2025 Pain in joint, foot, left (ICD-10 - M25.572) 02/23/2025 PAD (peripheral artery disease) (ICD-10 - I73.9) Plan Of Treatment Pending Test Test Name Order Date GERHARD 01/01/2024 Ultrasound : Artery Doppler Low Ext Bila t 01/01/2024 X ray : Foot, left 3v 02/23/2025 X ray : Foot, left 3v 08/02/2025 X ray : Foot, left 3v 01/01/2024 X ray : Foot, left 3v 04/20/2021 X ray : Foot, right 3v 10/16/2021 DRAIN/INJECT, SMALL JOINT/BURSA 04/20/20 21 DRAIN/INJECT, SMALL JOINT/BURSA 08/02/20 25 DRAIN/INJECT, SMALL JOINT/BURSA 02/24/20 25 Insurance Providers Payer Name Payer Address Payer Phone Subscriber Number Group Number Insured Name Patient Relationship to Insured Coverage Start Date Coverage End Date [employer] of [place] [address] LESLI HUNT [id number] [place], [place] Self - patient is the insured [facility] [address] [place] [address] [id number] [place], [place] Self - patient is the insured Medications Administered Medication Instructions Date of Administration Dosage Notes Dexamethasone 04/20/2021 2 mg dexAMETHasone Sod Phosphate PF 02/23/2025 2 mg dexAMETHasone Sod Phosphate PF 08/02/2025 2 mg Kenalog 04/20/2021 20 mg Kenalog 02/23/2025 5 mg Kenalog 08/02/2025 5 mg Medical (General) History Medical History [...] lumbar spine surgery 09/2022 Cardiac stents 08/2024 back surgery 07/22/2025 Hospitalization History Reason Date(Month/Year) back surgery 07/22/2025 3 days at [facility] for dehyd ration, JUSTINE, and gout of left foot. Uric acid 9.2 02/08/25 back surgery 09/2022 [place]: [facility] 09/2021
--- OUTSIDE RECORDS SUMMARY | 2025-08-11 08:55 | XMS_ITS | Clinical Summary ---
Author Organization [facility] Address [address] [facility] [place] [address] Phone Care Team Providers Care Php Architect Name Role Phone Finn Okeefe MD Primary Care Provider [phone] Allergies Active Allergy Reactions Criticality Noted Date [...] 2 (two) times a day. 08/23/2022 Active insulin degludec (Tresiba FlexTouch U-100) 100 [...] (one) time each day in the evening. 03/28/2025 Active furosemide (LASIX) 20 mg tablet Take 1 tablet (20 mg total) by mouth every other day. Active dilTIAZem CD (CARDIZEM CD) 240 mg 24 hr capsule Take 1 capsule (240 mg total) by mouth 1 (one) time each day. 30 each 11 05/11/2025 05/11/20 26 Active clopidogreL (PLAVIX) 75 mg tablet TAKE 1 TABLET BY MOUTH 1 TIME EACH DAY. 90 tablet 1 05/24/2025 Active evolocumab (Repatha SureClick) 140 mg/mL pen injector injectionIndicat ions:Cerebral infarction, unspecified (CMS/HCC V24, CMS/HCC V28) Inject 1 mL (140 mg total) under the skin every 14 (fourteen) days. 6 mL 2 05/26/2025 Active latanoprost (XALATAN) 0.005 % ophthalmic solution 1 drop at bedtime. Active carvediloL (COREG) 3.125 mg tablet Take 1 tablet (3.125 mg total) by mouth 2 (two) times a day with meals. 60 each 11 06/02/2025 06/02/20 26 Active Active Problems Problem Noted Date [...] test. She will be referred to a injection molding operator as well. Orders: Nuclear stress test with myocardial perfusion; Future Ambulatory referral to Pulmonology; Future CT Angio Chest wo and/or w Contrast; Future CAD (coronary artery disease) 11/13/2024 Overview (05/11/2025): - s/p LUIS MIGUEL to RCA and circumflex 08/2024 -Cardiac catheterization [...] of right wrist 07/19/2023 Paroxysmal atrial fibrillation 05/16/2023 Overview (05/11/2025): - Prior CVA - [...] and Eliquis for stroke risk reduction. Her GMZ2ZY1-KDBb score is 8. She continues on 5 mg twice daily based on her age, weight and kidney function. ECG today showing NSR. Assessment & Plan (11/20/2024 11:52 AM EDT): Patient with history of paroxysmal atrial fibrillation seen on ILR. ILR implanted due to history of a stroke. She continues on diltiazem for rate control and Eliquis for stroke risk reduction. Her LFD8IV0-FGOg score is 8. She continues on 5 [...] Patient should continue follow-up with vascular. 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 Spondylolisthesis of lumbar region 05/08/2022 Cerebrovascular accident (CVA) 04/23/2022 SVT (supraventricular tachycardia) 04/23/2022 HLD (hyperlipidemia) 04/18/2022 Overview (05/11/2025): Statin [...] Description 06/10/2025 11:30 AM EDT Ancillary Procedure [facility] [address] [place] [address] 06/10/2025 9:50 AM EDT Ancillary Procedure [facility] - [address] [place] [address] 06/09/2025 Telephone [facility] - [address] [place] [address] Yudy Sutton [place] 06/02/2025 10:20 AM EDT Office Visit [facility] [address] [facility] [address] [place] [address] Santino Delarosa MD Coronary artery disease involving ekwok coronary artery of ekwok heart without angina pectoris (Primary Dx); Paroxysmal atrial fibrillation (CMS/HCC V24, CMS/HCC V28); Hypertension, unspecified type; Hyperlipidemia, unspecified hyperlipidemia type; Stenosis of right carotid artery 05/31/2025 8:36 AM EDT - 05/31/2025 11:59 PM EDT Hospital Encounter [facility] Ultrasound [address] [place] [address] Thyroid nodule Discharge Disposition: Home or Self Care 05/26/[address] [facility] [address] [facility] [address] [place] [address] Kelly Malone NP 05/18/2025 12:40 PM EDT Ancillary Procedure [facility] - [address] [place] [address] from Last 3 Months Surgical History Surgery Date Site/Laterality Comments OTHER SURGICAL HISTORY 02/13/2022 PROCEDURE: [facility] EGD PARTIAL/COMPL ESOPHAGOGASTRIC FUNDOPLASTY OTHER SURGICAL HISTORY PROCEDURE: [facility] ARTHRODESIS POSTERIOR/PSTLAT TQ 1NTRSPC LUMBAR CARDIAC CATHETERIZATION DONE ON 09/08/2024 AT [facility] INDICATIONS: Abnormal nuclear perfusion study CORONARY ANGIOPLASTY [...] Info) Description 09/30/2025 1:10 PM EST Consult [facility] - [address] [facility] [address] [place] [address] April Nicole NP [address] [place] [address] [place] [address] Health Maintenance Due Date Last Done Comments [...] this topic Medical Devices Implanted Type Area Java Tech Lead Device Identifier Shelf Expiration Date Model / Serial / Lot Bsci-Crm [id number] Implanted:05/20 (Quantity not on file) Cardiac Loop Recorder [employer] CARD RHYTHM MGMT [id number] / [id number] / Procedures Procedure Name Priority Date/Time Associated Diagnosis Comments CARDIAC DEVICE CHECK- REMOTE- MURJ Routine 06/10/2025 11:25 AM EDT CARDIAC DEVICE CHECK- REMOTE- MURJ Routine 06/10/2025 9:46 AM EDT US HEAD NECK SOFT TISSUE Routine 05/31/2025 9:14 AM EDT Thyroid nodule CARDIAC DEVICE CHECK- REMOTE- MURJ Routine 05/18/2025 12:36 PM EDT BASIC METABOLIC PANEL STAT 12/02/2024 11:51 AM EDT LIPID PANEL Routine 11/13/2024 8:27 AM EDT Coronary artery disease involving ekwok heart with angina pectoris, unspecified vessel or lesion type ([facility] V24) HEMOGLOBIN A1C Routine 09/22/2024 12:00 AM EST Type 2 diabetes mellitus without complications ([facility]) Interstitial cystitis (chronic) without hematuria Pain in unspecified joint Chronic fatigue, unspecified Other retention of urine MAYDA DEXA AXIAL SKELETON Routine 08/06/2023 3:34 PM EST Age-related osteoporosis without current pathological fracture from Last 3 Months or Most Recently Relevant to Health Maintenance Results * Cardiac device check - Remote- MURJ (06/10/2025 11:25 AM EDT) Only the most recent of3 resultswithin the time period is included. Date Time Interrogation Session [id number] CV DEVICE CHECK Type Interrogation Session Remote Scheduled CV DEVICE CHECK Implantable Pulse Generator Java Tech Lead BSX CV DEVICE CHECK Implantable Pulse Generator Type ILR CV DEVICE CHECK Implantable Pulse Generator Model M301 CV DEVICE CHECK Implantable Pulse Generator Serial Number [id number] CV DEVICE CHECK Implantable Pulse Generator Implant Date [id number] CV DEVICE CHECK Battery Status Beginning of Service CV DEVICE CHECK Atrial Tachy Statistic AT/AF Catarina Percent 1.00 CV DEVICE CHECK Date of [...] rhythm reviewed * Heart Rate Histograms reviewed us Carmelo Nowak MD CV IMPLANTABLE CARDIAC DEVICE PROCEDURES Final Result * US Head Neck Soft Tissue (05/31/2025 9:14 AM EDT) Anatomical Region Laterality Modality Head and Neck Ultrasound 06/07/2025 3:18 PM EDT Impressions 06/07/2025 3:21 PM EDT No significant change in a previously biopsied 2.4 cm TI RADS 3 nodule in the left thyroid lobe. Telerad PA ([id number]) -------- FINAL REPORT -------- Dictated By: Daniela Khan Dictated Date: 06/07/2025 15:18 ET Assigned Physician: Daniela Khan Reviewed and Electronically Signed By: Daniela Khan Signed Date: 06/07/2025 15:21 ET Workstation ID: [id number] Transcribed By: Self Edit Transcribed Date: 06/07/2025 [...] nodule inthe left thyroid lobe. Telekriss BESS ([id number]) -------- FINAL REPORT -------- Dictated By: Daniela Khan Dictated Date: 06/07/2025 15:18 ET Assigned Physician: Daniela Khan Reviewed and Electronically Signed By: Daniela Khan Signed Date: 06/07/2025 15:21 ET Workstation ID: [id number] Transcribed By: Self Edit Transcribed Date: 06/07/2025 15:18 ET us Criss BESS IMG US PROCEDURES Final Resu lt * (ABNORMAL) Basic metabolic panel (12/02/2024 11:51 AM EDT) Sodium 138 133 - 145 mmol/L LAB CHEMISTRY METHOD 12/02/2024 12:33 PM EDT [facility] Potassium 3.8 3.5 - 5.5 mmol/L LAB CHEMISTRY METHOD 12/02/2024 12:[address] [facility] Chloride 103 96 - 110 mmol/L LAB CHEMISTRY METHOD 12/02/2024 12:[address] [facility] CO2 28 21 - 32 mmol/L LAB CHEMISTRY METHOD 12/02/2024 12:[address] [facility] Anion Gap 7 3 - 11 LAB CHEMISTRY METHOD 12/02/2024 12:[address] [facility] Glucose 93 70 - 100 mg/dL LAB CHEMISTRY METHOD 12/02/2024 12:[address] [facility] BUN 23 5 - 25 mg/dL LAB CHEMISTRY METHOD 12/02/2024 12:[address] [facility] Creatinine 1.27(H) 0.50 - 1.10 mg/dL LAB CHEMISTRY METHOD 12/02/2024 12:[address] [facility] eGFR 43(L) >=60 mL/min/1. 73m2 LAB CHEMISTRY METHOD 12/02/2024 12:[address] [facility] Comment:Calculation based on the Chronic Kidney Disease Epidemiology Collaboration (CKD-EPI) equation refit without adjustment for race. BUN/Creatinine Ratio 18.1 LAB CHEMISTRY METHOD 12/02/2024 12:[address] [facility] Calcium 9.9 8.5 - 10.5 mg/dL LAB CHEMISTRY METHOD 12/02/2024 12:[address] [facility] Blood Venous blood specimen / Unknown Venipuncture / Unknown 12/02/2024 11:51 AM EDT 12/02/2024 12:00 PM EDT us Dandre Salas DO LAB BLOOD ORDERABLES Final Result [facility] [address] [place] [address], * (ABNORMAL) Lipid panel (11/13/2024 8:27 AM [...] 11:06 PM EDT Performed at: - [facility] [address] [id number] Java Application Engineer: Nikki Valle MD, Phone: [phone] us Kelly Malone TIMBER SPRINKLER LAB BLOOD ORDERABLES Final Res ult Performing Organization Address City/[facility]/ZIP Co de Phone Number [id number] 1 * Hemoglobin A1c (09/22/2024 12:00 AM EST) Hemoglobin A1C 5.3 <6.5 % LAB CHEMISTRY METHOD 09/23/2024 12:41 PM EST [facility] Mean Bld Glu Estim. 105 mg/dL LAB CHEMISTRY METHOD 09/23/2024 12:41 PM EST [facility] Blood Venous blood specimen / Unknown 09/22/2024 09/22/2024 6:27 PM EST us Gabino BESS LAB BLOOD ORDERABLES Final Res ult Performing Organization Address City/[facility]/ZIP Co de Phone Number [facility] [address] [place] [address], [place] [phone] * MAYDA DEXA AXIAL SKELETON (08/06/2023 3:34 PM EST) Anatomical Region Laterality Modality Mammography 08/06/2023 1:47 PM EST Narrative 08/06/2023 3:34 PM EST [facility] Diagnostic Imaging Department [address] [place] [address] Patient: ALANISSTARR AGUIRRE Julio /Age/Sex: 1945 - 78 - F Unit#: [id number] Location/Status: SPDIMAM/REG CLI Mnemonic/Ordering Site: MAMDEXAAX/SPMAM Ordering Physician: MYLES MAGALLANES MD Mayda Dexa Axial Skeleton - 08/06/232 Report Status:Signed History: Low estrogen state due to menopause. Personal history of fracture. Findings: Bone densitometry is performed utilizing dual energy x-ray absorptiometry (DXA) in the [employer] unit. The lumbar spine and proximal femora [...] 25.1 percent Hip 7.8 percent. IMPRESSION: Osteoporosis. [id number] Dictating Physician: DANIELA KHAN MD Electronically Signed by: DANIELA KHAN MD Dic Date/Time: 08/06/231533 Sign date/Time: 08/06/231533 Procedure Note Daniela Khan MD - 09/24/2023 [facility] Diagnostic Imaging Department [address] [place] [address] Patient: STARR HOBBS Julio /Age/Sex: 1945 - 78 - F Unit#: [id number] Location/Status: SPDIMAM/REG CLI Mnemonic/Ordering Site: MAMDEXAAX/SPMAM Ordering Physician: MYLES MAGALLANES MD Mayda Dexa Axial Skeleton - 08/06/23 - 1945 Report Status:Signed History: Low estrogen state due to menopause. Personal history offracture. Findings: Bone densitometry is performed utilizing dual energy x-ray absorptiometry(DXA) in the [employer] unit. The lumbar spine and proximal femora [...] 25.1 percent Hip 7.8 percent. IMPRESSION: Osteoporosis. [id number] Dictating Physician: DANIELA KHAN MD Electronically Signed by: DANIELA KHAN MD Dic Date/Time: 08/06/231533 Sign date/Time: 08/06/231533 Myles Magallanes MD IMG BI PROCEDURES Final Res ult from Last 3 Months or Most Recently Relevant to Health Maintenance Insurance MEDICARE [facility] Care Teams Php Architect Relationship Specialty Start Date End Date Finn Okeefe MD [address] [place] [address] [place] [address] PCP - General Internal Medicine 06/02/25
--- OUTSIDE RECORDS SUMMARY | 2025-08-11 08:55 | XMS_ITS | Encounter Summary ---
Author Organization [facility] Address [address] [place] [address] Care Team Providers Care Radio Despatcher Name Role Phone Finn Okeefe MD Primary Care Provider [phone] Encounter Details Date Type Department Care Team (Late st Contact Info) Description 06/25/2024 Lab Requisition [facility] - Main Lab [address] [facility] [address] [place] [id number] Rogelio Montenegro MD [address] [place] [address] John's esophagus with dysplasia, unspecified Social History [...] Info) Description 09/30/2025 1:10 PM EST Consult [facility] [address] [facility] [address] [place] [address] April Nicole NP [address] [place] [address] [place] [address] documented as of this encounter Procedures Procedure [...] and no dysplasia identified. 06/26/2024 4:01 PM EST [facility] at 1601 EST Comment Hand Laminator slide(s) from this case have been presented at Anatomic Pathology Intradepartmental Review Conference on 06/26/24. 06/26/2024 4:01 PM EST [facility] Gross Description A. Esophagus, GE junction: Labeled GE junction biopsy. Received in formalin are seven soft, jackson tissue fragments, ranging from 0.1 cm to 0.6 cm in greatest diameters, which are wrapped in paper and submitted in toto in one cassette, seven pieces, multiple levels on one slide. GABBIE 06/26/2024 4:01 PM EST [facility] Disclaimer Unless otherwise specified, all tissue is 10% NB formalin fixed and paraffin embedded. 06/26/2024 4:01 PM [facility] Tissue Esophageal structure / Unknown 06/25/2024 06/25/2024 2:52 PM EST Rogelio Montenegro MD LAB PATHOLOGY ORDERABLES Final Result [facility] [address] [place] [address], documented in this encounter Visit Diagnoses Diagnosis John's esophagus with dysplasia, unspecified documented in this encounter Care Teams Radio Despatcher Relationship Specialty Start Date End Date Finn Okeefe MD [address] [place] [address] PCP - General Internal Medicine 06/02/25 documented as of this encounter
--- OUTSIDE RECORDS SUMMARY | 2025-08-11 08:55 | XMS_ITS | Clinical Summary ---
Author Organization [facility] Address [address] [place] [address] Care Team Providers Care Vehicle Glass Technician Name Role Phone Cm Magallanes Primary Care [...] Screening 08/19/2024 Health Care Proxy Review 08/19/2024 Influenza Vaccine (#1) 2025 04/19/2013 COVID-19 Vaccine (4 - 2024-2 6 season) 2025 06/22/2021, 11/17/2020, 10/27/2020 Hepatitis B Vaccines Aged Out No long er eligible based on patient's age to complete this topic [facility] Care Teams Vehicle Glass Technician Relationship Specialty Start Date End Date Cm Magallanes [address] [place] [address] PCP - General 03/07/17
--- OUTSIDE RECORDS SUMMARY | 2025-08-11 08:55 | XMS_ITS ---
Author Name [facility] Organization Unknown History of Medication Use Medication Directions Dispensed Refills Start Date End Date Stat us aspirin 81 MG chewable tablet Chew 81 mg daily. ac tive atorvastatin (LIPITOR) 40 MG tablet Take 40 mg by mouth daily. active clopidogrel (PLAVIX) 75 MG tablet Take 75 mg by mouth daily. active gabapentin (NEURONTIN) 100 MG capsule Take 100 mg by mouth 2 (two) times a day in the morning and the early evening.. active lisinopril (PRINIVIL,ZeSTRIL) 40 MG tablet Take 40 mg by mouth daily. active metoPROLOL SUCCINATE (TOPROL-XL) 25 MG 24 hr tablet Take 25 mg by mouth daily. active Problems Problem Status Onset Date Problem Type Date of Resoluti on Source Vestibular dysfunction, unspecified laterality active EncounterDiagnosisAct [facility] History of transient ischemic attack (TIA) active EncounterDiagnosisAct [facility] Dizziness and giddiness active EncounterDiagnosisAct [facility] Encounters Encounter Type Encounter Reason Primary Diagnosis Location Date Ambulatory Formerly [facility] 11/16/2024 Amb[facility] D[facility] 05/07/2022 [facility] 05/[facility]22 [facility] 04/24/2022 Ambulatory Dizziness and gidd[facility] 04/09/2022 Ambulatory Dizziness and gidd[facility] 04/02/2022 Care Team Organization Name Specialty Phone Email Start Date End [facility] 11/17/2024 [facility] 10/28/2024 [facility] 03/05/2024 [facility] 06/26/2022 [facility] 05/07/2022 [facility] 04/02/202204/19
--- OUTSIDE RECORDS SUMMARY | 2025-08-11 08:56 | XMS_ITS | Clinical Summary ---
Author Organization [facility] Address [address] [place] [address] Phone Care Team Providers Care Marine Rigger Name Role Phone Gabino Hayward Jr. Primary Care Provider [phone] Allergies No known active allergies Medications apixaban [...] Date Type Department Care Team Description 05/24/2025 Orders Only [facility] [address] [address] Shannon Shafer ARNP Stage 3b chronic kidney disease (HCC); Hypertension 05/22/2025 Refill [facility] [address] [address] Shannon Shafer ARNP from Last 3 Months [...] Office Visit [facility] [address] [place] [address] Shannon Shafer ARNP [address] [address] Health Maintenance Due Date Last [...] patient's age to complete this topic Insurance Medicare [facility] Care Teams Marine Rigger Relationship Specialty Start Date End Date Gabino Hayward Jr. [address] [place], [place] [address] [place] [address] PCP - General 01/19/25
== END 2025-08-11 09:48 | disposition home or self-care (01) ==
LOC: HO.HNS 08:50
PROVIDERS: PCP Internal Medicine; Visit Provider Physician Assistant
DX: Z98.890 Other specified postprocedural states (principal)
CPT/HCPCS: 99024

== ENCOUNTER → 2025-08-11 08:52 | Outpatient (BNV) | payer MEDICARE, OTHER, SELFPAY | PROVIDERS: Visit Provider Radiology Body Imaging | DX: M51.26 Other intervertebral disc displacement, lumbar region (principal) | CPT/HCPCS: 72110 ==